=== PATIENT | female | born 1950 | race Caucasian/White ===

== ENCOUNTER 2023-09-02 20:33 | Emergency (ER) | payer MEDICARE, OTHER, SELFPAY ==
[2023-09-02] VITALS (7 sets, daily range): BP systolic 113–136; BP diastolic 65–93; PULSE 75–85; RESP 22; TEMP 36.6; O2SAT 99–100; BMI 29.0
--- NOTE | 2023-09-02 20:40 | ECG_ITS ---
APPROVED REPORT Exam: Resting ECG HR:82 bpm ECG Measurements Heart Rate 82 AXES TX 141 P 49 QRSd 78 QRS 19 QT 365 T 21 QTc 404 Conclusion SINUS RHYTHM LOW QRS VOLTAGE IN PRECORDIAL LEADS [QRS DEFLECTION < 1.0 mV IN CHEST LEADS] BORDERLINE ECG UNCONFIRMED REPORT Electronically signed by : Umer Chiu MD 09/04/2023 14:49:40
--- NOTE | 2023-09-02 21:00 | XR_ITS ---
PROCEDURE INFORMATION: Exam: XR Chest Exam date and time: 09/02/2023 9:14 PM Age: 72 years old Clinical indication: Shortness of breath; Sternal or substernal pain; Additional info: Chest pain TECHNIQUE: Imaging protocol: Radiologic exam of the chest. Views: 1 view. COMPARISON: No relevant prior studies available. FINDINGS: Lungs: Regions of subsegmental atelectasis left lung base. Pleural spaces: Unremarkable. No pleural effusion. No pneumothorax. Heart/Mediastinum: Unremarkable. No cardiomegaly. Bones/joints: Unremarkable. IMPRESSION: 1. Regions of subsegmental atelectasis left lung base. 2. No evidence of acute cardiopulmonary disease.
[2023-09-02 21:12] LABS: Basophils # 0.1 K/mm3 (0-0.2); Basophils % 0.7 % (0.1-2.0); Eosinophils # 0.2 K/mm3 (0.0-0.4); Eosinophils % 2.1 % (0.1-12.0); Hematocrit 39.8 % (37.0-47.0); Hemoglobin 13.4 g/dL (12.2-16.2); Lymphocytes # 3.2 K/mm3 (0.7-4.5); Lymphocytes % 33.3 % (10-50); Mean Corpuscular HGB Conc 33.6 g/dL (31.8-35.4); Mean Corpuscular Hemoglobin 29.3 pg (27.0-31.2); Mean Corpuscular Volume 87.2 fl (81-99); Mean Platelet Volume 8.3 fl (7.4-10.4); Monocytes # 0.5 K/mm3 (0.1-1.0); Monocytes % 4.9 % (1.7-9.3); Neutrophils # 5.7 K/mm3 (1.8-7.8); Platelet Count 266 K/mm3 (142-424); Red Blood Count 4.57 M/mm3 (4.20-5.40); White Blood Count 9.7 K/mm3 (4.8-10.8)
[2023-09-02 21:15] LABS: Alanine Aminotransferase 41 U/L (12-78); Albumin Level 4.4 g/dl (3.5-5.0); Albumin/Globulin Ratio 1.6 (1.1-1.8); Alkaline Phosphatase 52 U/L (38-126); Anion Gap 14.1 mEq/L (5-15); Aspartate Amino Transferase 50 U/L (14-36); Bilirubin,Total 0.6 mg/dl (0.2-1.3); Blood Urea Nitrogen 14 mg/dl (7-17); Calcium 9.1 mg/dl (8.4-10.2); Carbon Dioxide 16 mmol/L (22.0-30.0); Chloride 108 mmol/L (98-107); Creatinine Clearance Estimated 66 mL/min (50-200); Estimated Glomerular Filt Rate 82 ml/min (>60); GFR (African American) 99 ML/MIN (>60); Globulin 2.7 g/dL (1.3-3.2); Glucose 156 mg/dl (74-100); Potassium 4.1 mmoL/L (3.5-5.1); Sodium 134 mmol/L (136-145); Total Protein,Serum 7.1 g/dl (6.3-8.2)
[2023-09-02 21:27] LABS: Troponin I < 0.01 ng/ml (0.00-0.034)
--- NOTE | 2023-09-02 21:37 | ED_ITS ---
Discharge Plan Disposition Chief Complaint: Chest Pain Referrals Follow up/Referrals: Provider,MD Orlin [Primary Care Provider] - See instructions Kristopher Leal MD [Staff Physician] - See instructions Activity Restrictions/Add. Instructions Additional Instructions/Restrictions: At this time it was felt you are safe to be discharged home. If new or worsening symptoms please do not hesitate to return the emergency department. Please call and schedule an appointment with Dr. Leal. Clinical Impressions Clinical Impression: Chest pain Discharge ED Provider: Pedrito Mei General Adult HPI General Chief complaint: Chest Pain Stated complaint: anxiety Time Seen by Provider: 09/02/23 20:42 Mode of Arrival: EMS Source of Information: Patient and EMS Limitations: No Limitations Description of Symptoms (Recalled from ER Triage Doc. by RN): pt reports she was watching TV and started hurting in her chest, felt like her heart was beating fast denies any other symptoms History of Present Illness HPI narrative: Patient is a 72-year-old female past medical history of diabetes, anxiety, depression who presents emergency department for evaluation of chest pain. Patient states that she has had intermittent chest pain throughout the day, substernal. It has been persistent over the last few hours causing her to present here for continued evaluation. Patient does not have any cardiac history per her. Chest pain does not radiate. She lives at [facility]. No other acute complaints at this time. Related Data Allergies Allergy/AdvReac Type Severity Reaction Status Date / Time Penicillins Allergy Mild Verified 09/02/23 20:59 [facility] Disclaimer: The information contained in this section may have been updated after the patient was seen, as this information can be updated by other users. Social History Smoking Status: Never smoker alcohol intake: never current occupational status: other Travel in the last 8 weeks: None ROS Obtained: Yes Systems reviewed as appropriate & no additional complaints except as documented Physical Exam General General appearance: alert and in no apparent distress Head Head exam: atraumatic and normocephalic Eye Eye exam: Present PERRL and EOMI ENT ENT exam: Present mucous membranes moist Neck Neck exam: Present normal inspection Chest Chest inspection: Present normal inspection and symmetric chest wall rise Respiratory Respiratory exam: Present normal lung sounds bilaterally; Absent respiratory distress Cardiovascular Cardiovascular exam: Present regular rate and normal rhythm Abdominal Exam Abdominal exam: Present soft and other (Erythema in the bilateral inguinal inter triginous areas as well as the inframammary areas); Absent tenderness Extremities Exam Extremities exam: Present normal inspection Neurological Exam Neurological exam: Present alert Psychiatric Psychiatric exam: Present normal affect Skin Skin exam: Present warm and dry Medical Decision Making Dax Inquiry Pt receiving controlled substance: No Vital Signs: 09/02/23 20:33 09/02/23 20:56 09/02/23 21:00 Temperature 97.9 F Temperature Source Oral Pulse Rate 85 79 Pulse Rate [Right] 85 Respiratory Rate 22 Blood Pressure 136/93 H Blood Pressure [Right Arm] 122/74 Blood Pressure Mean [Right Arm] 90 Blood Pressure Source [Right Arm] Automatic Cuff Blood Pressure Position [Right Arm] Sitting 02 Sat by Pulse Oximetry 100 100 Oxygen Delivery Method Nasal Cannula Room Air Oxygen Flow Rate (LPM) 3 Lab Data Lab Results 09/02/23 20:45: WBC 9.7, RBC 4.57, Hgb 13.4, Hct 39.8, MCV 87.2, MCH 29.3, MCHC 33.6, RDW 16.0, Plt Count 266, MPV 8.3, Neut % (Auto) 59.0, Lymph % (Auto) 33.3, [place] % (Auto) 4.9, Eos % (Auto) 2.1, Baso % (Auto) 0.7, Neut # (Auto) 5.7, Lymph # (Auto) 3.2, [place] # (Auto) 0.5, Eos # (Auto) 0.2, Baso # (Auto) 0.1, Sodium 134 L, Potassium 4.1, Chloride 108 H, Carbon Dioxide 16 L, Anion Gap 14.1, BUN 14, Creatinine 0.70, Estimated Creat Clear 66, Estimated GFR 82, Est GFR ( Amer) 99, Glucose 156 H, Calcium 9.1, Total Bilirubin 0.6, AST 50 H, ALT 41, Alkaline Phosphatase 52, Troponin I < 0.01, Total Protein 7.1, Albumin 4.4, Globulin 2.7, Albumin/Globulin Ratio 1.6 09/02/23 20:45 09/02/23 20:45 Orders (Tests/Meds): ED MEDICATIONS Discontinued Medications Generic Name Dose Route Start Last Admin Trade Name Freq PRN Reason Stop Dose Admin Aspirin 324 mg 09/02/23 21:41 09/02/23 21:57 Aspirin 81mg Chewable Tablet PO 09/02/23 21:42 324 mg ONCE ONE Administration ORDERS Category Date Time Status Chest XR -- portable [XR chest portable] Stat Exams 09/02/23 21:00 Completed Complete Blood Count Auto Diff Stat Lab 09/02/23 20:45 Completed Comprehensive Metabolic Panel Stat Lab 09/02/23 20:45 Completed Troponin I Q3H Lab 09/03/23 23:00 Ordered Troponin I Q3H Lab 09/04/23 02:00 Ordered Troponin I Stat Lab 09/02/23 20:45 Completed ECG Data Tracing #1: Independently interpreted by me, rate is 82, rhythm is regular, axis is normal, no ST elevation or depression in anatomical contiguous leads, QTc 404. HEART Score History (anamnesis): Moderately suspicious ECG: Normal Age: >65 years Risk factors: No known risk factors Troponin: </= normal limit HEART Score: 3 Medical Decision Narrative: In summary patient is a 72-year-old female past medical history described above who presents emergency department for evaluation of chest pain. Patient is hemodynamically stable nontoxic-appearing upon arrival, afebrile. Differential diagnosis includes ACS, noncardiac chest pain, among others. Patient also has intertrigo in her inframammary and bilateral inguinal areas which will be dried and patient will be discharged with nystatin from that standpoint. Workup from chest pain standpoint will be conducted with chest x-ray, EKG, hematologic labs, serial troponins. Initial inventions include aspirin. Workup reviewed by me, hematologic labs are nonactionable, serial troponin is below detectable limit. Upon repeat evaluation patient continued to be well-appearing. Given this patient is appropriate for discharge at this time we will follow-up with cardiology on outpatient basis. Critical Care Critical Care Time Critical Care Time: No
[2023-09-02] MEDS: ASPIRIN 81MG CHEWABLE TABLET 324 MG PO (21:57)
--- NOTE | 2023-09-02 22:12 | PC.NURSE ---
2nd trop to be collected at [address] Mei
[2023-09-02 23:47] LABS: Troponin I < 0.01 ng/ml (0.00-0.034)
--- NOTE | 2023-09-02 23:55 | PC.NURSE ---
spoke to a male employee at [facility]. he advised nobody there has a vehicle to come get pt
--- NOTE | 2023-09-02 23:56 | PC.NURSE ---
attempted to call [facility]. no answer
--- NOTE | 2023-09-02 23:56 | PC.NURSE ---
attempted to call [employer]. no answer
--- NOTE | 2023-09-02 23:57 | PC.NURSE ---
spoke to Yodit Harden, network architect manager of [employer]. she advised she would have someone come pick pt up
[2023-09-03 00:01] VITALS: BP 117/73; PULSE 76; RESP 20; TEMP 36.6; O2SAT 99
== END 2023-09-03 00:42 | disposition home or self-care (01) ==
PROVIDERS: Emergency Provider Emergency Medicine
DX: R07.9 Chest pain, unspecified (principal); E11.9 Type 2 diabetes mellitus without complications; L30.4 Erythema intertrigo
CPT/HCPCS: 71045; 80053; 84484; 85025; 93005; 99285

== ENCOUNTER 2023-11-02 11:16 | Emergency (ER) | payer MEDICARE, OTHER, SELFPAY ==
[2023-11-02 11:16] VITALS: BP 134/68; PULSE 90; RESP 20; TEMP 37.6; O2SAT 98; BMI 40.2
--- NOTE | 2023-11-02 11:25 | PC.NURSE ---
DR PAYNE AT BEDSIDE
--- NOTE | 2023-11-02 11:32 | HMH.EDGENADL ---
Discharge Plan Disposition Patient Disposition: Home, Self-Care Prescriptions Prescriptions: No Action (DME) blood-glucose meter [Advanced Glucose Meter] Misc See Rx Instructions .Route Qty: 1 0RF Rx Instructions: Test sugar 3 times daily or As directed (DME) Advanced Gluc Meter Test Strip Strip See Rx Instructions .Route Qty: 100 0RF Rx Instructions: Test sugar 3 times daily or As directed (DME) lancets [Advanced Travel Lancets] 28 gauge misc See Rx Instructions .Route Qty: 100 0RF Rx Instructions: Test sugar 3 times daily or As directed nystatin 100,000 unit/gram powder 1 applic topical BID Qty: 60 0RF Activity Restrictions/Add. Instructions Additional Instructions/Restrictions: A silver dressing has been placed Please do not remove this until you are seen by Dr. Jett [facility] plastic surgery on Friday. Please return with any spreading redness pus high fevers or other concerns. Please follow-up with Dr. Jett as instructed. Clinical Impressions Clinical Impression: Full thickness burn of left thigh Instructions Patient Instructions: DI for Laceration Repair Discharge ED Provider: Ryley Jensen General Adult HPI General Chief complaint: Wound/Laceration Stated complaint: LEG INFECTION Time Seen by Provider: 11/02/23 11:20 Mode of Arrival: EMS Source of Information: EMS Limitations: No Limitations Description of Symptoms (Recalled from ER Triage Doc. by RN): pt came in for wound on front aspect of left upper leg/thigh area. pt is a poor historian and unable to give any details or timeline regarding wound. edges are not approximate and it is in various stages of healing, 4-5 inches long approx. pt also has yeast under her breasts History of Present Illness HPI narrative: Patient is a 72-year-old [facility] today with a wound to the left medial aspect of her left thigh. Her mental status which is at his baseline is that she is pleasantly demented and she is unsure as to what happened she does not know if she burned this she does not have know the duration of this. No further history was able to be obtained other than an employee from [employer] stating that she needed to be evaluated. That location is an assisted living facility not a senior living and the staff there are not medically trained. We are attempting to get further information from them at the moment but no further history is able to be obtained or was communicated with us about the nature or the history of this. Related Data Previous Rx's Medication Instructions Recorded nystatin 100,000 unit/gram topical 1 applic topical BID #60 grams 09/02/23 powder blood sugar diagnostic (Advanced #100 ea 09/05/23 Glucose Meter Test Strips) blood-glucose meter (Advanced #1 ea 09/05/23 Glucose Meter) lancets 28 gauge (Advanced Travel #100 ea 09/05/23 Lancets) Allergies Allergy/AdvReac Type Severity Reaction Status Date / Time Penicillins Allergy Mild Verified 09/02/23 20:59 [facility] Disclaimer: The information contained in this section may have been updated after the patient was seen, as this information can be updated by other users. Social History (Updated 09/02/23 @ 23:18 by Pedrito Mei MD) Smoking Status: Never smoker alcohol intake: never current occupational status: other Travel in the last 8 weeks: None ROS Obtained: Yes All systems reviewed & no additional complaints except as documented Physical Exam General General appearance: alert Respiratory Respiratory exam: Present normal lung sounds bilaterally Cardiovascular Cardiovascular exam: Present regular rate Neurological Exam Neurological exam: Present alert and oriented X3 Skin Skin exam: Present other (On the left medial aspect of the thigh there is a 15 x 5 cm area of very well-demarcated erythema with centralized eschar that is insensate no purulence) Medical Decision Making Dax Inquiry Pt receiving controlled substance: No Vital Signs: 11/02/23 11:16 Temperature 99.6 F Temperature Source Oral Pulse Rate [Right Radial] 90 Respiratory Rate 20 Blood Pressure [Right Arm] 134/68 Blood Pressure Mean [Right Arm] 90 02 Sat by Pulse Oximetry 98 Oxygen Delivery Method Room Air Medical Decision Narrative: 72-year-old female presents today with wound of the left medial aspect of her leg. It appears to be a full-thickness burn to me however there is no history of a burn nor infection leading up to today. We are trying to get more history from [facility]ong at the moment. She is insensate in the middle of this and there is certainly an eschar that will need to be debrided. Unfortunately this patient I do not believe will be able to follow-up in an outpatient setting due to her social situation. We are discussing the case with our case management team and I will also discussed the case with [facility] plastic surgery regarding a management plan. This does not appear to be infected. Appears to be a full-thickness burn to be clinically. I discussed the case with Dr. Colunga with [facility] plastic surgery and sent him a picture of the imaging he agrees this looks like a burn. She has no evidence of infection at this point we were able to place a Opticell AG dressing on this and then put Optifoam dressing over top of this. We do not have Mepilex Ag. The patient will follow-up with Dr. Jett with plastic surgery outpatient on Friday. Return precautions emphasized to [facility] and they are aware of this plan. They will be able to get the patient federal transportation for that trip. She was discharged in stable condition. No emergency surgery needed at the moment. Critical Care Critical Care Time Critical Care Time: No
--- NOTE | 2023-11-02 11:39 | PC.NURSE ---
Called [facility] for consult with plastics. Advised they would call back when the provider is available.
--- NOTE | 2023-11-02 11:55 | PC.NURSE ---
Dr. Jensen speaking with [facility] for wound consult with plastics
--- NOTE | 2023-11-02 12:05 | PC.NURSE ---
SPOKE WITH FLAVIO BARTLETT WITH . INFORMATION PROVIDED FOR PT TO RECEIVE APPT FOR LEFT LEG WOUND.
--- NOTE | 2023-11-02 12:27 | PC.NURSE ---
WOUND TO LEFT THIGH COVERED WITH OPTICELL AG SILVER AND OPTIFOAM
[2023-11-02 13:30] VITALS: BP 123/74; PULSE 86; RESP 18; TEMP 36.8; O2SAT 100
== END 2023-11-02 13:30 | disposition home or self-care (01) ==
PROVIDERS: Emergency Provider Student in an Organized Health Care Education/Training Program
DX: T24.312A Burn of third degree of left thigh, initial encounter (principal); F03.90 Unspecified dementia, unspecified severity, without behavioral disturbance, psychotic disturbance, mood disturbance, and anxiety; X58.XXXA Exposure to other specified factors, initial encounter
CPT/HCPCS: 99283

== ENCOUNTER 2023-11-03 23:14 | Emergency (ER) | payer MEDICARE, OTHER, SELFPAY ==
[2023-11-03 23:14] VITALS: BP 136/90; PULSE 92; RESP 20; TEMP 36.9; O2SAT 99; BMI 27.4
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
[2023-11-03 23:30] VITALS: BP 144/84; PULSE 76; RESP 20; O2SAT 100
--- NOTE | 2023-11-03 23:51 | PC.NURSE ---
Call made to [facility] to inform patient is ready for d/c.
[2023-11-04 00:02] VITALS: BP 144/80; PULSE 80; RESP 20; TEMP 37.1; O2SAT 97
--- NOTE | 2023-11-04 00:03 | PC.NURSE ---
report given to staff Aretha from [facility] when she picked patient up from ED.
== END 2023-11-04 00:03 | disposition home or self-care (01) ==
PROVIDERS: Emergency Provider Emergency Medicine; PCP Nurse Practitioner Acute Care
DX: S81.802A Unspecified open wound, left lower leg, initial encounter (principal); X58.XXXA Exposure to other specified factors, initial encounter
CPT/HCPCS: 99283

== ENCOUNTER 2023-11-19 20:46 | Observation (INO) | payer MEDICARE, OTHER, SELFPAY ==
--- NOTE | 2023-11-19 20:48 | CT_ITS ---
PROCEDURE INFORMATION: Exam: CTA Neck With Contrast Exam date and time: 11/19/2023 9:15 PM Age: 73 years old Clinical indication: Stroke-like symptoms; RT upper extremity and RT lower extremity weakness; Additional info: Lkn 4pm, rue/rle flaccid paralysis TECHNIQUE: Imaging protocol: Computed tomographic angiography of the neck with contrast. Exam focused on the cervical segments of the vasculature. 3D rendering (Not supervised by radiologist): MIP and/or 3D reconstructed images were created by the technologist. Radiation optimization: All CT scans at this facility use at least one of these dose optimization techniques: automated exposure control; mA and/or kV adjustment per patient size (includes targeted exams where dose is matched to clinical indication); or iterative reconstruction. Contrast material: ISOVUE; Contrast volume: 100 ml; Contrast route: INTRAVENOUS (IV); COMPARISON: CT ANGIO HEAD 11/19/2023 9:15 PM FINDINGS: Right common carotid artery: No stenosis. No dissection or occlusion. Right internal carotid artery: No stenosis of the extracranial segment. No dissection or occlusion. Right external carotid artery: No occlusion or stenosis of the origin. Left common carotid artery: No stenosis. No dissection or occlusion. Left internal carotid artery: No stenosis of the extracranial segment. No dissection or occlusion. Left external carotid artery: No occlusion or stenosis of the origin. Right vertebral artery: The right vertebral artery is diminutive and noncontributory to the basilar artery. Left vertebral artery: No stenosis. No dissection or occlusion. Soft tissues: Normal. No significant soft tissue swelling. Bones/joints: Moderate loss of intervertebral disc space with degenerative changes at C4 through C6. IMPRESSION: No stenosis or occlusion. REFERENCES: NASCET CRITERIA. The degree of stenosis in the cervical segment of the internal carotid artery is based on NASCET criteria. Normal is no stenosis. Mild is less than 50% stenosis. Moderate is 50-69% stenosis. Severe is 70% to 99% stenosis. Total occlusion is no detectable patent lumen.
--- NOTE | 2023-11-19 20:48 | CT_ITS ---
PROCEDURE INFORMATION: Exam: CTA Head With Contrast, Arteriography Exam date and time: 11/19/2023 9:15 PM Age: 73 years old Clinical indication: Stroke-like symptoms; RT upper extremity and RT lower extremity weakness; Additional info: Lkn 4pm, rue/rle flaccid paralysis TECHNIQUE: Imaging protocol: Computed tomographic angiography of the head with contrast. Exam focused on the arteries. 3D rendering (Not supervised by radiologist): MIP and/or 3D reconstructed images were created by the technologist. Radiation optimization: All CT scans at this facility use at least one of these dose optimization techniques: automated exposure control; mA and/or kV adjustment per patient size (includes targeted exams where dose is matched to clinical indication); or iterative reconstruction. Contrast material: ISOVUE; Contrast volume: 100 ml; Contrast route: INTRAVENOUS (IV); COMPARISON: CT HEAD/BRAIN WO CON 11/19/2023 9:13 PM FINDINGS: ANTERIOR CIRCULATION: Right internal carotid artery: Intracranial segment is patent with no significant stenosis. No aneurysm. Right middle cerebral artery: No occlusion or significant stenosis. No aneurysm. Right anterior cerebral artery: No occlusion or significant stenosis. No aneurysm. Left internal carotid artery: Intracranial segment is patent with no significant stenosis. No aneurysm. Left middle cerebral artery: No occlusion or significant stenosis. No aneurysm. Left anterior cerebral artery: No occlusion or significant stenosis. No aneurysm. POSTERIOR CIRCULATION: Right vertebral artery: No occlusion or significant stenosis. No aneurysm. Left vertebral artery: No occlusion or significant stenosis. No aneurysm. Basilar artery: No occlusion or significant stenosis. No aneurysm. Right posterior cerebral artery: No occlusion or significant stenosis. No aneurysm. Left posterior cerebral artery: No occlusion or significant stenosis. No aneurysm. Transverse sinuses: Nodular filling defects of the transverse sinuses compatible with arachnoid granulations. Brain: See Transverse sinuses finding. Cerebral ventricles: No ventriculomegaly. Bones/joints: Unremarkable. No acute fracture. Soft tissues: Unremarkable. IMPRESSION: No large vessel stenosis or occlusion.
--- NOTE | 2023-11-19 20:48 | CT_ITS ---
PROCEDURE INFORMATION: Exam: CT Head Without Contrast Exam date and time: 11/19/2023 9:13 PM Age: 73 years old Clinical indication: Stroke-like symptoms; Altered mental status/memory loss; Additional info: Lkn 4pm, rue/rle flaccid paralysis TECHNIQUE: Imaging protocol: Computed tomography of the head without contrast. Radiation optimization: All CT scans at this facility use at least one of these dose optimization techniques: automated exposure control; mA and/or kV adjustment per patient size (includes targeted exams where dose is matched to clinical indication); or iterative reconstruction. Other technique: STROKE PROTOCOL was implemented. COMPARISON: No relevant prior studies available. FINDINGS: Brain: There is moderate diffuse cerebral volume loss present. Multiple subcortical and deep hypoattenuating white matter foci are present, likely related to small vessel senescent changes and can also be seen with prior infectious / inflammatory insult, or prior traumatic events. No hyperattenuating foci are identified to suggest acute intracranial hemorrhage. Cerebral ventricles: No ventriculomegaly. Paranasal sinuses: Visualized sinuses are unremarkable. No fluid levels. Mastoid air cells: Visualized mastoid air cells are well aerated. Bones/joints: Unremarkable. No acute fracture. Soft tissues: Unremarkable. Other findings: Motion artifacts slightly limits sensitivity and specificity of the examination. IMPRESSION: 1. Multiple subcortical and deep hypoattenuating white matter foci are present, likely related to small vessel senescent changes and can also be seen with prior infectious / inflammatory insult, or prior traumatic events. 2. No hyperattenuating foci are identified to suggest acute intracranial hemorrhage. 3. Motion artifacts slightly limits sensitivity and specificity of the examination. ASSESSMENT: ASPECTS ([place] Stroke Program Early CT Score) is 10.
[2023-11-19] MEDS: DEXTROSE 50% 50ML SYRINGE (CRASH CART) 50 ML IVP (20:49)
--- NOTE | 2023-11-19 21:01 | PC.NURSE ---
contacted [facility], spoke with chantell. advised doctor doesn't want stroke protocol overhead paged right now, but wants it done likeit is. not waiting on labs. trading assistant agreed and will head this way''
[2023-11-19 21:02] VITALS: BP 153/99; PULSE 78; RESP 16; TEMP 37.1; O2SAT 99; BMI 35.4
[2023-11-19 21:17] LABS: Basophils % 0.1 % (0.1-2.0); Eosinophils # 0.2 K/mm3 (0.0-0.4); Eosinophils % 1.9 % (0.1-12.0); Hematocrit 42.2 % (37.0-47.0); Hemoglobin 13.3 g/dL (12.2-16.2); Lymphocytes % 9.6 % (10-50); Mean Corpuscular HGB Conc 31.5 g/dL (31.8-35.4); Mean Corpuscular Hemoglobin 29.8 pg (27.0-31.2); Mean Corpuscular Volume 94.7 fl (81-99); Monocytes # 0.4 K/mm3 (0.1-1.0); Monocytes % 3.5 % (1.7-9.3); Neutrophils # 8.7 K/mm3 (1.8-7.8); Neutrophils % 84.9 % (37.0-80.0); Platelet Count 271 K/mm3 (142-424); Red Blood Count 4.45 M/mm3 (4.20-5.40); Red Cell Distribution Width 15.6 % (11.5-17.5); White Blood Count 10.3 K/mm3 (4.8-10.8)
--- NOTE | 2023-11-19 21:19 | PC.NURSE ---
PATIENT BACK FROM RADIOLOGY
[2023-11-19] MEDS: IOPAMIDOL-370 (76%);100ML BOTTLE 100 ML IV (21:20)
[2023-11-19] MEDS: SODIUM CHLORIDE 0.9% 10ML SYR (RAD ONLY) 10 ML IV (21:20)
[2023-11-19 21:27] LABS: Alanine Aminotransferase 22 U/L (12-78); Albumin Level 3.9 g/dl (3.5-5.0); Albumin/Globulin Ratio 1.6 (1.1-1.8); Alkaline Phosphatase 62 U/L (38-126); Anion Gap 17.8 mEq/L (5-15); Aspartate Amino Transferase 30 U/L (14-36); Bilirubin,Total 0.4 mg/dl (0.2-1.3); Blood Urea Nitrogen 26 mg/dl (7-17); Calcium 9.2 mg/dl (8.4-10.2); Carbon Dioxide 19 mmol/L (22.0-30.0); Chloride 108 mmol/L (98-107); Creatinine Clearance Estimated 71 mL/min (50-200); Estimated Glomerular Filt Rate 82 ml/min (>60); GFR (African American) 99 ML/MIN (>60); Globulin 2.4 g/dL (1.3-3.2); Glucose 236 mg/dl (74-100); Potassium 3.8 mmoL/L (3.5-5.1); Sodium 141 mmol/L (136-145); Total Protein,Serum 6.3 g/dl (6.3-8.2)
--- NOTE | 2023-11-19 21:28 | ECG_ITS ---
APPROVED REPORT Exam: Resting ECG HR:82 bpm ECG Measurements Heart Rate 82 AXES CA 140 P 59 QRSd 72 QRS 57 QT 377 T 62 QTc 416 Conclusion SINUS RHYTHM NONSPECIFIC ST & T-WAVE ABNORMALITY BORDERLINE ECG UNCONFIRMED REPORT Electronically signed by : Umer Chiu MD 11/20/2023 20:02:06
--- NOTE | 2023-11-19 21:28 | PC.NURSE ---
vrad on phone re: this patient
--- NOTE | 2023-11-19 21:34 | PC.NURSE ---
speaking with stroke navigator at this time from [facility]
[2023-11-19 21:43] LABS: Troponin I < 0.01 ng/ml (0.00-0.034)
--- NOTE | 2023-11-19 21:48 | PC.NURSE ---
spoke with katherine riggs at [facility] and gave update to her re: current status.
[2023-11-19 22:01] VITALS: BP 107/76; PULSE 80; RESP 17; O2SAT 89
[2023-11-19 22:31] VITALS: BP 126/87; PULSE 55; RESP 16; O2SAT 89
--- NOTE | 2023-11-19 22:55 | HMH.EDGENADL ---
Discharge Plan Disposition Patient Disposition: Admitted Prescriptions Prescriptions: No Action (DME) blood-glucose meter [Advanced Glucose Meter] Misc See Rx Instructions .Route Qty: 1 0RF Rx Instructions: Test sugar 3 times daily or As directed (DME) Advanced Gluc Meter Test Strip Strip See Rx Instructions .Route Qty: 100 0RF Rx Instructions: Test sugar 3 times daily or As directed (DME) lancets [Advanced Travel Lancets] 28 gauge misc See Rx Instructions .Route Qty: 100 0RF Rx Instructions: Test sugar 3 times daily or As directed nystatin 100,000 unit/gram powder 1 applic topical BID Qty: 60 0RF Referrals Follow up/Referrals: Honorio Teixeira APRN [Primary Care Provider] - See instructions Clinical Impressions Clinical Impression: Hypoglycemia, Transient neurologic deficit, Generalized weakness, Diarrhea Instructions Patient Instructions: DI for Hyperglycemia -- Adult Discharge ED Provider: Nadeem Castro General Adult HPI <Medina Stubbs DO - Last Filed: 11/19/23 23:29> General Chief complaint: Hyper/Hypoglycemia Stated complaint: AMS Time Seen by Provider: 11/19/23 20:48 Mode of Arrival: EMS Source of Information: Patient Limitations: No Limitations Description of Symptoms (Recalled from ER Triage Doc. by RN): 73 yo female brought in by ems for flaccid response on right side and leaning. according to staff at the [facility] she was normal to the best of her knowledge at 4pm last. initial fsbs in field: 46; fsbs History of Present Illness HPI narrative: This patient is a 73-year-old female with a history of insulin-dependent diabetes presenting to the emergency department with concern for right-sided flaccid paralysis. EMS noted that history is difficult to obtain, as multiple staff members at [facility] told the multiple different things. They note that the earliest last known normal was ever given was 4 PM, the patient was given her medications including insulin. Patient was found just prior to arrival with concern for flaccid paralysis of the right side. EMS noted that fingerstick blood glucose was 46. She was given an amp of D50 with some improvement in her mental status, however her right-sided weakness persisted. Upon arrival, patient is difficult to obtain history from given baseline stutter as well as mild somnolence. Fingerstick blood glucose here is too low to read. Related Data Previous Rx's Medication Instructions Recorded nystatin 100,000 unit/gram topical 1 applic topical BID #60 grams 09/02/23 powder blood sugar diagnostic (Advanced #100 ea 09/05/23 Glucose Meter Test Strips) blood-glucose meter (Advanced #1 ea 09/05/23 Glucose Meter) lancets 28 gauge (Advanced Travel #100 ea 09/05/23 Lancets) Allergies Allergy/AdvReac Type Severity Reaction Status Date / Time Penicillins Allergy Mild Verified 09/02/23 20:59 PFSH <Medina Stubbs DO - Last Filed: 11/19/23 23:29> PFS Disclaimer: The information contained in this section may have been updated after the patient was seen, as this information can be updated by other users. Social History Smoking Status: Unknown if ever smoked alcohol intake: never current occupational status: other Travel in the last 8 weeks: None <Medina Stubbs DO - Last Filed: 11/19/23 23:29> ROS Obtained: Yes All systems reviewed & no additional complaints except as documented Physical Exam <Medina Stubbs DO - Last Filed: 11/19/23 23:29> General General appearance: alert, obtunded and obese Head Head exam: atraumatic and normocephalic Eye Eye exam: Present normal appearance, PERRL and EOMI ENT ENT exam: Present normal exam, normal oropharynx, mucous membranes moist and normal external ear exam Neck Neck exam: Present normal inspection, full ROM and trachea midline; Absent tenderness Chest Chest inspection: Present normal inspection and symmetric chest wall rise; Absent tenderness Respiratory Respiratory exam: Present normal lung sounds bilaterally; Absent respiratory distress, wheezes, stridor or accessory muscle use Cardiovascular Cardiovascular exam: Present regular rate and normal rhythm Abdominal Exam Abdominal exam: Present soft; Absent distention, tenderness or guarding Extremities Exam Extremities exam: Present normal inspection, full ROM and normal capillary refill; Absent tenderness or edema Back Exam Back exam: Present normal inspection and full ROM; Absent tenderness Neurological Exam Neurological exam: Present alert, normal gait and motor sensory deficit; Absent oriented X3 or CN II-XII intact Expanded Neurological Exam Patient oriented to: Present person; Absent place or time Cranial nerves: Normal: EOM function (II, III, IV, ), facial palsy (VII) and tongue deviation (XII) and Abnormal Right: spinal accessory function (XI) Motor strength - LUE: 5/5 Motor strength - RUE: 0/5 Motor strength - LLE: 5/5 Motor strength - RLE: 0/5 Upper motor neuron exam: Normal: maria victoria neglect Coma scale eye opening: Spontaneous Coma scale motor response: Obeys commands Coma scale verbal response: Confused Coma scale total: 14 Psychiatric Psychiatric exam: Present normal affect and normal mood Skin Skin exam: Present warm and dry <Nadeem Castro MD - Last Filed: 11/20/23 00:06> Expanded Neurological Exam Coma scale total: 14 Medical Decision Making <Medina Stubbs DO - Last Filed: 11/19/23 23:29> Medical Records Medical records reviewed: Yes I reviewed the patient's medical records. Dax Inquiry Pt receiving controlled substance: No Vital Signs: 11/19/23 21:02 11/19/23 22:01 11/19/23 22:31 Temperature 98.8 F Temperature Source Oral Pulse Rate 80 55 L Pulse Rate [Right Brachial] 78 Respiratory Rate 16 17 16 Blood Pressure 107/76 L 126/87 Blood Pressure [Right Arm] 153/99 H Blood Pressure Mean 86 92 Blood Pressure Mean [Right Arm] 117 Blood Pressure Source [Right Arm] Automatic Cuff Blood Pressure Position [Right Arm] Sitting 02 Sat by Pulse Oximetry 99 89 L 89 L Oxygen Delivery Method Room Air 11/19/23 23:01 11/19/23 23:49 Temperature Temperature Source Pulse Rate 99 H 90 Pulse Rate [Right Brachial] Respiratory Rate 20 16 Blood Pressure 108/74 L 138/75 Blood Pressure [Right Arm] Blood Pressure Mean 88 Blood Pressure Mean [Right Arm] Blood Pressure Source [Right Arm] Blood Pressure Position [Right Arm] 02 Sat by Pulse Oximetry 92 L 99 Oxygen Delivery Method Lab Data Lab results reviewed: Yes I reviewed the patient's lab results. Lab Results 11/19/23 20:48: VBG pH 7.29 L, VBG pCO2 43.7, VBG pO2 37.0, VBG HCO3 20.5 L, VBG Total CO2 21.9 L, VBG O2 Saturation 67.2, VBG Base Excess -6.0 L 11/19/23 21:10: WBC 10.3, RBC 4.45, Hgb 13.3, Hct 42.2, MCV 94.7, MCH 29.8, MCHC 31.5 L, RDW 15.6, Plt Count 271, MPV 9.0, Neut % (Auto) 84.9 H, Lymph % (Auto) 9.6 L, Millard % (Auto) 3.5, Eos % (Auto) 1.9, Baso % (Auto) 0.1, Neut # (Auto) 8.7 H, Lymph # (Auto) 1.0, Millard # (Auto) 0.4, Eos # (Auto) 0.2, Baso # (Auto) 0.0, Sodium 141, Potassium 3.8, Chloride 108 H, Carbon Dioxide 19 L, Anion Gap 17.8 H, BUN 26 H, Creatinine 0.70, Estimated Creat Clear 71, Estimated GFR 82, Est GFR ( Amer) 99, Glucose 236 H, Calcium 9.2, Total Bilirubin 0.4, AST 30, ALT 22, Alkaline Phosphatase 62, Troponin I < 0.01, Total Protein 6.3, Albumin 3.9, Globulin 2.4, Albumin/Globulin Ratio 1.6 11/19/23 23:41: Urine Color Yellow, Urine Appearance Clear, Urine pH 6.0, Ur Specific [place] >= 1.030, Urine Protein 1+, Urine Glucose (UA) Negative, Urine Ketones 1+, Urine Blood Negative, Urine Nitrate Negative, Urine Bilirubin 2+ A, Urine Urobilinogen 0.2, Ur Leukocyte Esterase Trace 11/19/23 21:10 11/19/23 21:10 Orders (Tests/Meds): ED MEDICATIONS Discontinued Medications Generic Name Dose Route Start Last Admin Trade Name Daljit PRN Reason Stop Dose Admin Dextrose 50 ml 11/19/23 20:49 11/19/23 20:49 Dextrose 50% 50ml Syringe (Crash Cart) IVP 11/19/23 20:50 50 ml ONCE ONE Administration Iopamidol 100 ml 11/19/23 21:20 11/19/23 21:20 Iopamidol-370 (76%);100ml Bottle IV 11/19/23 21:21 100 ml ONCE ONE Administration Sodium Chloride 10 ml 11/19/23 21:20 11/19/23 21:20 Sodium Chloride 0.9% 10ml Syr (Rad Only) IV 11/19/23 21:21 10 ml ONCE ONE Administration ORDERS Category Date Time Status CT angio head Stat Cat Scan 11/19/23 20:[address] angio neck Stat Cat Scan 11/19/23 20:[address] head/brain wo con Stat Cat Scan 11/19/23 20:48 Completed Complete Blood Count Auto Diff Stat Lab 11/19/23 21:10 Completed Comprehensive Metabolic Panel Stat Lab 11/19/23 21:10 Completed Lactic Acid Stat Lab 11/19/23 20:48 Ordered Troponin I Q3H Lab 11/19/23 23:50 Received Troponin I Q3H Lab 11/20/23 02:49 Ordered Troponin I Stat Lab 11/19/23 21:10 Completed Urinalysis and Microscopic Stat Lab 11/19/23 23:41 Results Venous Blood Gas Stat RT 11/19/23 20:48 Completed ECG Data Tracing #1: I reviewed this ECG and interpreted as documented below: Normal sinus rhythm with ventricular rate of [address] changes concerning for STEMI. Some motion artifact noted. Nonspecific ST/T wave changes. ECG initial impression date: 11/19/23 ECG initial impression time: 21:30 Medical Decision Narrative: In summary, this patient is a 73-year-old female presenting to the Emergency Department for evaluation of right-sided weakness in the setting of hyperglycemia. Differential diagnoses considered include but are not limited to CVA, intracranial hemorrhage, intracranial mass, sepsis, hypoglycemia, other stroke mimic. Ruling out the most morbid conditions drove assessment. On initial assessment, patient has NIH stroke scale of 11 for right-sided deficits, dysarthria, and aphasia. She has a fingerstick glucose that is too low to detect. An amp of D50 was given with rapid improvement in her symptoms. She was then able to move normally with NIH stroke scale of 0. Workup included CBC, CMP, troponin, urinalysis, EKG, CT head without contrast, and CT angio of the head and neck. We continued to monitor every 15 minute fingerstick glucoses at this time. On multiple subsequent reassessments, the patient had no recurrence of symptoms. I independently interpreted CT scans prior to the radiologist read and noted no obvious acute area of stroke and no large vessel occlusion. Please see their read for final interpretation. Labs were obtained that demonstrated no acutely concerning abnormalities such as leukocytosis that would suggest sepsis as a cause of hypoglycemia. EMS did note that she did not eat dinner, so I feel she likely has hypoglycemia related to insulin use and not eating. I had an interactive discussion with Brodie, the it coordinator at [facility] [place], who advised that since there is no intervenable lesion and the patient does not have symptoms at this time, no indication for transfer to stroke center. At 2300, patient was placed in ED observation status pending stabilization of her blood glucose to determine whether or not the patient would be appropriate for discharge versus admission. The patient was provided serial reevaluations, neurologic reassessments, serial fingerstick blood glucoses, and cardiac monitoring while awaiting ultimate disposition. Given reassuring workup and exam, it is felt that the patient is appropriate for discharge at this time. Total ED observation time was []. I had a [id number] visit with the patient when providing discharge instructions. The total time involved in discharging this patient was less than 30 minutes. <Nadeem Castro MD - Last Filed: 11/20/23 00:06> Vital Signs: 11/19/23 21:02 11/19/23 22:01 11/19/23 22:31 Temperature 98.8 F Temperature Source Oral Pulse Rate 80 55 L Pulse Rate [Right Brachial] 78 Respiratory Rate 16 17 16 Blood Pressure 107/76 L 126/87 Blood Pressure [Right Arm] 153/99 H Blood Pressure Mean 86 92 Blood Pressure Mean [Right Arm] 117 Blood Pressure Source [Right Arm] Automatic Cuff Blood Pressure Position [Right Arm] Sitting 02 Sat by Pulse Oximetry 99 89 L 89 L Oxygen Delivery Method Room Air 11/19/23 23:01 11/19/23 23:49 Temperature Temperature Source Pulse Rate 99 H 90 Pulse Rate [Right Brachial] Respiratory Rate 20 16 Blood Pressure 108/74 L 138/75 Blood Pressure [Right Arm] Blood Pressure Mean 88 Blood Pressure Mean [Right Arm] Blood Pressure Source [Right Arm] Blood Pressure Position [Right Arm] 02 Sat by Pulse Oximetry 92 L 99 Oxygen Delivery Method Lab Data Lab Results 11/19/23 20:48: VBG pH 7.29 L, VBG pCO2 43.7, VBG pO2 37.0, VBG HCO3 20.5 L, VBG Total CO2 21.9 L, VBG O2 Saturation 67.2, VBG Base Excess -6.0 L 11/19/23 21:10: WBC 10.3, RBC 4.45, Hgb 13.3, Hct 42.2, MCV 94.7, MCH 29.8, MCHC 31.5 L, RDW 15.6, Plt Count 271, MPV 9.0, Neut % (Auto) 84.9 H, Lymph % (Auto) 9.6 L, Millard % (Auto) 3.5, Eos % (Auto) 1.9, Baso % (Auto) 0.1, Neut # (Auto) 8.7 H, Lymph # (Auto) 1.0, Millard # (Auto) 0.4, Eos # (Auto) 0.2, Baso # (Auto) 0.0, Sodium 141, Potassium 3.8, Chloride 108 H, Carbon Dioxide 19 L, Anion Gap 17.8 H, BUN 26 H, Creatinine 0.70, Estimated Creat Clear 71, Estimated GFR 82, Est GFR ( Amer) 99, Glucose 236 H, Calcium 9.2, Total Bilirubin 0.4, AST 30, ALT 22, Alkaline Phosphatase 62, Troponin I < 0.01, Total Protein 6.3, Albumin 3.9, Globulin 2.4, Albumin/Globulin Ratio 1.6 11/19/23 23:41: Urine Color Yellow, Urine Appearance Clear, Urine pH 6.0, Ur Specific [place] >= 1.030, Urine Protein 1+, Urine Glucose (UA) Negative, Urine Ketones 1+, Urine Blood Negative, Urine Nitrate Negative, Urine Bilirubin 2+ A, Urine Urobilinogen 0.2, Ur Leukocyte Esterase Trace Orders (Tests/Meds): ED MEDICATIONS Discontinued Medications Generic Name Dose Route Start Last Admin Trade Name Freq PRN Reason Stop Dose Admin Dextrose 50 ml 11/19/23 20:49 11/19/23 20:49 Dextrose 50% 50ml Syringe (Crash Cart) IVP 11/19/23 20:50 50 ml ONCE ONE Administration Iopamidol 100 ml 11/19/23 21:20 11/19/23 21:20 Iopamidol-370 (76%);100ml Bottle IV 11/19/23 21:21 100 ml ONCE ONE Administration Sodium Chloride 10 ml 11/19/23 21:20 11/19/23 21:20 Sodium Chloride 0.9% 10ml Syr (Rad Only) IV 11/19/23 21:21 10 ml ONCE ONE Administration ORDERS Category Date Time Status CT angio head Stat Cat Scan 11/19/23 20:[address] angio neck Stat Cat Scan 11/19/23 20:[address] head/brain wo con Stat Cat Scan 11/19/23 20:48 Completed Complete Blood Count Auto Diff Stat Lab 11/19/23 21:10 Completed Comprehensive Metabolic Panel Stat Lab 11/19/23 21:10 Completed Lactic Acid Stat Lab 11/19/23 20:48 Ordered Troponin I Q3H Lab 11/19/23 23:50 Received Troponin I Q3H Lab 11/20/23 02:49 Ordered Troponin I Stat Lab 11/19/23 21:10 Completed Urinalysis and Microscopic Stat Lab 11/19/23 23:41 Results Venous Blood Gas Stat RT 11/19/23 20:48 Completed Medical Decision Narrative: In summary, this patient is a 73-year-old female presenting to the Emergency Department for evaluation of right-sided weakness in the setting of hyperglycemia. Differential diagnoses considered include but are not limited to CVA, intracranial hemorrhage, intracranial mass, sepsis, hypoglycemia, other stroke mimic. Ruling out the most morbid conditions drove assessment. On initial assessment, patient has NIH stroke scale of 11 for right-sided deficits, dysarthria, and aphasia. She has a fingerstick glucose that is too low to detect. An amp of D50 was given with rapid improvement in her symptoms. She was then able to move normally with NIH stroke scale of 0. Workup included CBC, CMP, troponin, urinalysis, EKG, CT head without contrast, and CT angio of the head and neck. We continued to monitor every 15 minute fingerstick glucoses at this time. On multiple subsequent reassessments, the patient had no recurrence of symptoms. I independently interpreted CT scans prior to the radiologist read and noted no obvious acute area of stroke and no large vessel occlusion. Please see their read for final interpretation. Labs were obtained that demonstrated no acutely concerning abnormalities such as leukocytosis that would suggest sepsis as a cause of hypoglycemia. EMS did note that she did not eat dinner, so I feel she likely has hypoglycemia related to insulin use and not eating. I had an interactive discussion with Brodie, the it coordinator at [facility] [place], who advised that since there is no intervenable lesion and the patient does not have symptoms at this time, no indication for transfer to stroke center. At 2300, patient was placed in ED observation status pending stabilization of her blood glucose to determine whether or not the patient would be appropriate for discharge versus admission. The patient was provided serial reevaluations, neurologic reassessments, serial fingerstick blood glucoses, and cardiac monitoring while awaiting ultimate disposition. Matthew: I assume primary responsibility for this patient after signout from previous physician. Given reassuring workup and exam, it is felt that the patient was appropriate for discharge. Patient felt comfortable with this, however after ambulatory trial, patient nearly fell multiple times after just a couple of steps. Total ED observation time was 1 hour. Given extreme weakness, patient was helped to the bathroom. She had large-volume diarrhea that was nonbloody none mucousy. I feel after ambulatory trial, generalized weakness, and concern for decreased p.o. intake, increased GI losses, and risk of refractory hypoglycemia is high enough that patient warrants admission at this time. Urinalysis pending at time of admission. Because patient high risk for clinical decompensation, deemed appropriate for inpatient admission. Results were relayed to patient who voiced understanding and patient was agreeable to inpatient admission and management. Patient was admitted to the hospital for further definitive management. Critical Care <Medina Stubbs, DO - Last Filed: 11/19/23 23:29> Critical Care Time Critical Care Time: Yes Attestation: On 11/19/23, the high probability of a clinically significant, sudden or life threatening deterioration of the following system(s) (endocrine, neurologic) required my full and direct attention, intervention and personal management. The time I documented below is in addition to time spent performing reported procedures but includes the following listed in this critical care notation. Total Time Total Critical Care Time: 45
--- NOTE | 2023-11-19 23:00 | PC.NURSE ---
FSBS checks [id number] recheck [phone]
[2023-11-19 23:01] VITALS: BP 108/74; PULSE 99; RESP 20; O2SAT 92
[2023-11-19 23:26] LABS: VBG HCO3 20.5 mmol/L (23-30); VBG Oxygen Saturation 67.2 % (50-70); VBG PCO2 43.7 mmol/L (35-51); VBG PH 7.29 mmol/L (7.31-7.41); VBG Total CO2 21.9 mmol/L (23-27)
[2023-11-19 23:49] VITALS: BP 138/75; PULSE 90; RESP 16; O2SAT 99
[2023-11-19 23:53] LABS: Microscopic, Urine URINE MICROSCOPIC (MICROSCOPIC)
[2023-11-19 23:56] LABS: Appearance,Urine CLEAR (Clear); Blood, Urine Negative (Negative); Color,Urine YELLOW (Yellow); Glucose,Urine (UA) Negative (Negative); Ketones,Urine 1+ (Negative); Leukocyte Esterase,Urine TRACE (Negative); Nitrate,Urine Negative (Negative); Protein,Urine 1+ (Negative); Specific Gravity, Urine >= 1.030 (1.005-1.030); Urobilinogen,Urine 0.2 EU/dl (0.2)
[2023-11-20] VITALS (10 sets, daily range): BP systolic 115–145; BP diastolic 65–99; PULSE 75–106; RESP 16–22; TEMP 36.8–37.5; O2SAT 90–98; BMI 29.4; BMI 29.6
[2023-11-20 00:03] LABS: Bilirubin,Urine 2+ (Negative)
--- NOTE | 2023-11-20 00:05 | PC.NURSE ---
Efrem Ramirez called for update on patient, informed that she is being admitted
[2023-11-20 00:06] LABS: Bacteria,Urine Trace /lpf
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
[2023-11-20 00:29] LABS: Troponin I < 0.01 ng/ml (0.00-0.034)
--- NOTE | 2023-11-20 00:37 | PC.NURSE ---
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
[2023-11-20] MEDS: 0.9 % SODIUM CHLORIDE 1000ML 1,000 ML 100 ML IV (00:53)
--- NOTE | 2023-11-20 00:54 | PC.NURSE ---
rounded on pt at this time. Pt voices no needs.
--- NOTE | 2023-11-20 00:54 | PC.NURSE ---
rounded on patient, given pillow and lights turned out for comfort, call light within reach
--- NOTE | 2023-11-20 02:53 | PC.NURSE ---
rounded on patient, patient sleeping at this time, call light within reach
[2023-11-20 03:20] LABS: Lactic Acid 1.3 mmol/L (0.7-2.1)
[2023-11-20 03:33] LABS: Troponin I 0.01 ng/ml (0.00-0.034)
--- NOTE | 2023-11-20 04:00 | PC.NURSE ---
Report given to FLAVIO Blackwell
--- NOTE | 2023-11-20 05:20 | PC.WOUNDNOTE ---
Left thigh wound
[2023-11-20 07:57] LABS: Basophils % 0.3 % (0.1-2.0); Eosinophils # 0.2 K/mm3 (0.0-0.4); Eosinophils % 1.8 % (0.1-12.0); Hematocrit 39.5 % (37.0-47.0); Hemoglobin 13.2 g/dL (12.2-16.2); Lymphocytes # 2.6 K/mm3 (0.7-4.5); Lymphocytes % 29.7 % (10-50); Mean Corpuscular HGB Conc 33.5 g/dL (31.8-35.4); Mean Corpuscular Volume 92.7 fl (81-99); Mean Platelet Volume 8.5 fl (7.4-10.4); Monocytes # 0.4 K/mm3 (0.1-1.0); Monocytes % 4.4 % (1.7-9.3); Neutrophils # 5.5 K/mm3 (1.8-7.8); Neutrophils % 63.9 % (37.0-80.0); Platelet Count 211 K/mm3 (142-424); Red Blood Count 4.26 M/mm3 (4.20-5.40); Red Cell Distribution Width 15.5 % (11.5-17.5); White Blood Count 8.7 K/mm3 (4.8-10.8)
[2023-11-20 08:07] LABS: Chloride 111 mmol/L (98-107); Sodium 139 mmol/L (136-145)
[2023-11-20 08:08] LABS: Potassium 3.7 mmoL/L (3.5-5.1)
[2023-11-20 08:10] LABS: Alanine Aminotransferase 19 U/L (12-78); Albumin Level 3.6 g/dl (3.5-5.0); Albumin/Globulin Ratio 1.6 (1.1-1.8); Alkaline Phosphatase 46 U/L (38-126); Anion Gap 15.7 mEq/L (5-15); Aspartate Amino Transferase 35 U/L (14-36); Bilirubin,Total 0.8 mg/dl (0.2-1.3); Blood Urea Nitrogen 19 mg/dl (7-17); Calcium 8.9 mg/dl (8.4-10.2); Carbon Dioxide 16 mmol/L (22.0-30.0); Creatinine Clearance Estimated 71 mL/min (50-200); Estimated Glomerular Filt Rate 98 ml/min (>60); GFR (African American) 118 ML/MIN (>60); Globulin 2.3 g/dL (1.3-3.2); Glucose 94 mg/dl (74-100); Total Protein,Serum 5.9 g/dl (6.3-8.2)
[2023-11-20 08:11] LABS: Magnesium 1.6 mg/dl (1.6-2.3)
--- NOTE | 2023-11-20 08:13 | SW/DCPLANNER ---
This patient currently resides at [facility]. PT/OT has been ordered for this patient: once evaluation is completed I will speak w/ Rosario from [facility] regarding safe discharge plans. Discharge date is unknown at this time.
[2023-11-20] MEDS: CLINDAMYCIN 150MG CAPSULE 450 MG PO ×2 (09:02→13:29)
[2023-11-20] MEDS: ENOXAPARIN 40MG/0.4ML SYRINGE 40 MG SQ (09:02)
[2023-11-20] MEDS: LACTOBACILLUS PROBIOTIC COMB CAPSULE 1 CAP PO (09:02)
--- NOTE | 2023-11-20 09:04 | HMH.OTEV ---
OT Inpatient Evaluation Rehab OT IP Evaluation Start: 11/20/23 00:12 Freq: ONCE Status: Active Protocol: Document 11/20/23 09:01 ARNALDO (Rec: 11/20/23 09:04 [email or web address] [id number]) Rehab OT IP Assessment Subjective History This is a 73-year-old female with PMHx of insulin-dependent diabetes, resident from [facility] brought in by EMS to the emergency department with concern for right-sided flaccid paralysis. Patient is poor historian. Data collected form EMS and ER documentation. Per EMS they also noted that multiple staff members reported multiple different things . They note that the earliest last known normal was ever given was 4 PM, the patient was given her medications including insulin. Patient was found just prior to arrival with concern for flaccid paralysis of the right side. EMS noted that fingerstick blood glucose was 46. She was given an amp of D50 with some improvement in her mental status, however her right-sided weakness persisted. Upon arrival, patient is difficult to obtain history from given baseline stutter as well as mild somnolence. Fingerstick blood glucose here is too low to read. Admitted for treatment and management. I can get up. Patient is a resident at [facility]. Subjective Analysis Patient's bed mobility, transfers, LB drsg and fx'l mobility within room. Patient demonstrated good sitting and dynamic standing balance with no AE/devices. Patient appears to be at baseline. Objective Patient Orientation Person,Place,Name,Age Right Upper Extremity Gross ROM WFL Left Upper Extremity Gross ROM WFL Bed Mobility bed mobility - supine/sit Assist Level Independent Transfer Training Sit/Stand/Pivot Transfer Assist Level Independent Chair Transfer Ability Independent Chair Transfer Technique Sit to/from Ambulatory Chair Transfer Assistive Devices None Rehab OT IP prob,goals,plan Problems Date of Evaluation: 11/20/23 Rehab Potential Rehab Potential Innapropriate for Skilled Therapy Discharge Plan OT Discharge Plan Patient appears to be at baseline. Therapy is not indicated at this time. Eval Complexity Eval Charge Codes 64871 - Low Complexity PHYSICIAN CERTIFICATION: I certify the specified therapy services for Amy Montes are required, authorized, and reviewed every 30 days.
[2023-11-20] MEDS: PANTOPRAZOLE 40MG TABLET 40 MG PO (09:06)
--- NOTE | 2023-11-20 09:11 | PC.NURSE ---
pt ambulated with 1 assist to the scale and back to room. pt is in bed with call light within reach.
--- NOTE | 2023-11-20 11:57 | HMH.PTWOUND ---
Rehab Inpt Wound Evaluation Rehab IP Wound Evaluation Start: 11/20/23 04:43 Freq: ONCE Status: Active Protocol: Document 11/20/23 11:53 JAMES (Rec: 11/20/23 11:57 PHORICHMOND [id number]) Rehab PT Wound Assessment Subjective Subjective 73 yowf adm to [facility] with hypoglycemia. She has PMH of DM. She is a resident of a local personal jail and reports she is generally independent with all mobility and ADLs without an AD. She presents with L medial thigh wound of unknown cause on adm. Wound Left Medial Thigh Wound Type unknown cause Is This a Chronic Wound Yes Wound Length (cm) 3.0 Wound Width (cm) 7.0 Wound Depth (cm) 0.1 Wound Bed Appearance [place],Yellow Percentage Granulated (%) 50 Percentage of Slough (%) 50 Wound Margins Description Well Defined Surrounding Tissue Appearance Bright Red Wound Drainage Description Serous Drainage Amount Scant Wound Topical Solution/Irrigant Saline Irrigant Primary Dressing Composite Comment polymem silver Wound Secondary Dressing Type Film Dressing Comment tegaderm Wound Debridement Method Gauze,Mechanical Wound Debridement Amount of Tissue None Removed Dressing Change Patient Tolerance Tolerated Well Plan/Recommendation Comment Pt currently has no need for sharp selective debridment. Nsg to continue daily dressing changes as above. Eval Complexity Eval Charge Codes 94198 - High Complexity PHYSICIAN CERTIFICATION: I certify the specified therapy services for Amy Montes are required, authorized, and reviewed every 30 days.
--- NOTE | 2023-11-20 11:59 | HMH.PTEV ---
Physical Therapy Evaluation Rehab PT IP Evaluation Start: 11/20/23 00:12 Freq: ONCE Status: Active Protocol: Document 11/20/23 11:57 JAMES (Rec: 11/20/23 11:59 JAMES [id number]) Subjective/History History History 73 yowf adm to [facility] with hypoglycemia. She has PMH of DM. She is a resident of a local personal halfway and reports she is generally independent with all mobility and ADLs without an AD. She presents with L medial thigh wound of unknown cause on adm. Subjective Subjective Pt reports tenderness to palpation of her L medial thigh wound, but otherwise she has no c/o this am. New diagnosis of cancer in past 12 No months? Rehab PT IP Eval Objective Appearance Patient Behavior Appropriate Patient Orientation Person Difficulty following instructions none Speech Pattern Clear Ambulation Patient Able to Ambulate Yes Ambulation Observation IP General Gait Pattern Observation No Deviations/Normal Ambulation Distance (feet) 50 Ambulation Assistive Device None Ambulation Ability Supervision/Stand by Balance Ability to Arise Able, w/o using arms Sitting Balance Steady, safe Standing Balance Steady, wide stance Dynamic Sitting Balance Ability Good Dynamic Standing Balance Ability Good Transfers Bed Transfer Ability Supervision/Stand by Chair Transfer Ability Supervision/Stand by Sit to Stand Bed Transfer Ability Supervision/Stand by Sit to Stand Chair Transfer Ability Supervision/Stand by Rehab PT IP prob,goals,plan Problems Date of Evaluation: 11/20/23 Discharge Plan PT Discharge Plan Pt is currently at baseline for all mobility and is appropriate to return to personal halfway once medically stable for d/c. Eval Complexity Eval Charge Codes 67672 - High Complexity PHYSICIAN CERTIFICATION: I certify the specified therapy services for Amy Montes are required, authorized, and reviewed every 30 days.
[2023-11-20 14:04] LABS: POC Glucose,Bedside 77 (70-110)
[2023-11-20 14:04] LABS: POC Glucose,Bedside 85 (70-110)
[2023-11-20 14:04] LABS: POC Glucose,Bedside 150 (70-110)
--- NOTE | 2023-11-20 15:54 | EXP.DC.SUM ---
General Admission date:: 11/20/23 Discharge date: 11/20/23 HPI HPI HPI: This is a 73-year-old female with PMHx of insulin-dependent diabetes, resident from [facility] brought in by EMS to the emergency department with concern for right-sided flaccid paralysis. Patient is poor historian. Data collected form EMS and ER documentation. Per EMS they also noted that multiple staff members reported multiple different things . They note that the earliest last known normal was ever given was 4 PM, the patient was given her medications including insulin. Patient was found just prior to arrival with concern for flaccid paralysis of the right side. EMS noted that fingerstick blood glucose was 46. She was given an amp of D50 with some improvement in her mental status, however her right-sided weakness persisted. Upon arrival, patient is difficult to obtain history from given baseline stutter as well as mild somnolence. Fingerstick blood glucose here is too low to read. Admitted for treatment and management. Hospital Course Hospital Course Hospital Course: patient is alert awake and back to the baseline, patient is stable for discharge Hypoglycemia resolved, stop insulin at DC until seen by PCP, patient is eating well now. Patient is maintaing her blood sugars and is stable for discharge see same date H&P for further details Patient was seen and evaluated at the bedside on the day of discharge. Patient wishes to be discharged. All patient questions were answered and patient was given time to ask questions. Patient was discharged in stable condition. Patient understands that she can return to ER in case of any sudden changes in health. Total time spent on DC - 38 mins Exam Data for Last 24 hours Vital signs and Labs for Last 24 Hours: Temp Pulse Resp BP Pulse Ox O2 Del Method 98.9 F 91 H 16 118/68 98 Room Air 11/20/23 15:12 11/20/23 15:12 11/20/23 15:12 11/20/23 15:12 11/20/23 15:12 11/20/23 15:12 Laboratory Results - last 24 hr 11/19/23 20:48: VBG pH 7.29 L, VBG pCO2 43.7, VBG pO2 37.0, VBG HCO3 20.5 L, VBG Total CO2 21.9 L, VBG O2 Saturation 67.2, VBG Base Excess -6.0 L 11/19/23 21:10: WBC 10.3, RBC 4.45, Hgb 13.3, Hct 42.2, MCV 94.7, MCH 29.8, MCHC 31.5 L, RDW 15.6, Plt Count 271, MPV 9.0, Neut % (Auto) 84.9 H, Lymph % (Auto) 9.6 L, [place] % (Auto) 3.5, Eos % (Auto) 1.9, Baso % (Auto) 0.1, Neut # (Auto) 8.7 H, Lymph # (Auto) 1.0, [place] # (Auto) 0.4, Eos # (Auto) 0.2, Baso # (Auto) 0.0, Sodium 141, Potassium 3.8, Chloride 108 H, Carbon Dioxide 19 L, Anion Gap 17.8 H, BUN 26 H, Creatinine 0.70, Estimated Creat Clear 71, Estimated GFR 82, Est GFR ( Amer) 99, Glucose 236 H, Calcium 9.2, Total Bilirubin 0.4, AST 30, ALT 22, Alkaline Phosphatase 62, Troponin I < 0.01, Total Protein 6.3, Albumin 3.9, Globulin 2.4, Albumin/Globulin Ratio 1.6 11/19/23 23:41: Urine Color Yellow, Urine Appearance Clear, Urine pH 6.0, Ur Specific [place] >= 1.030, Urine Protein 1+, Urine Glucose (UA) Negative, Urine Ketones 1+, Urine Blood Negative, Urine Nitrate Negative, Urine Bilirubin 2+ A, Urine Urobilinogen 0.2, Ur Leukocyte Esterase Trace, Urine RBC 3-5, Urine WBC 3-5, Ur Squamous Epith Cells None, Urine Bacteria Trace 11/19/23 23:50: Troponin I < 0.01 11/20/23 03:00: Lactate 1.3, Troponin I 0.01 11/20/23 04:28: POC Glucose 85 11/20/23 06:11: POC Glucose 77 11/20/23 07:45: WBC 8.7, RBC 4.26, Hgb 13.2, Hct 39.5, MCV 92.7, MCH 31.0, MCHC 33.5, RDW 15.5, Plt Count 211, MPV 8.5, Neut % (Auto) 63.9, Lymph % (Auto) 29.7, [place] % (Auto) 4.4, Eos % (Auto) 1.8, Baso % (Auto) 0.3, Neut # (Auto) 5.5, Lymph # (Auto) 2.6, [place] # (Auto) 0.4, Eos # (Auto) 0.2, Baso # (Auto) 0.0, Sodium 139, Potassium 3.7, Chloride 111 H, Carbon Dioxide 16 L, Anion Gap 15.7 H, BUN 19 H D, Creatinine 0.60, Estimated Creat Clear 71, Estimated GFR 98, Est GFR ( Amer) 118, Glucose 94 D, Calcium 8.9, Magnesium 1.6, Total Bilirubin 0.8, AST 35, ALT 19, Alkaline Phosphatase 46, Total Protein 5.9 L, Albumin 3.6, Globulin 2.3, Albumin/Globulin Ratio 1.6 11/20/23 10:55: POC Glucose 150 H I & O for Last 24 hours: Intake & Output 11/17/23 11/18/23 11/19/23 11/20/23 23:59 23:59 23:59 23:59 Intake Total 630 / 630 Output Total 0 / 0 Balance 630 / 630 Weight 90.718 kg 73.028 kg Results Data Completed and Pending Labs on day of discharge: Labs from last 24 hours 11/20/23 11/20/23 11/20/23 10:55 07:45 06:11 WBC 8.7 RBC 4.26 Hgb 13.2 Hct 39.5 MCV 92.7 MCH 31.0 MCHC 33.5 RDW 15.5 Plt Count 211 MPV 8.5 Neut % (Auto) 63.9 Lymph % (Auto) 29.7 [place] % (Auto) 4.4 Eos % (Auto) 1.8 Baso % (Auto) 0.3 Neut # (Auto) 5.5 Lymph # (Auto) 2.6 [place] # (Auto) 0.4 Eos # (Auto) 0.2 Baso # (Auto) 0.0 VBG pH VBG pCO2 VBG pO2 VBG HCO3 VBG Total CO2 VBG O2 Saturation VBG Base Excess Sodium 139 Potassium 3.7 Chloride 111 H Carbon Dioxide 16 L Anion Gap 15.7 H BUN 19 H D Creatinine 0.60 Estimated Creat Clear 71 Estimated GFR 98 Est GFR ( Amer) 118 Glucose 94 D POC Glucose 150 H 77 Lactate Calcium 8.9 Magnesium 1.6 Total Bilirubin 0.8 AST 35 ALT 19 Alkaline Phosphatase 46 Troponin I Total Protein 5.9 L Albumin 3.6 Globulin 2.3 Albumin/Globulin Ratio 1.6 Urine Color Urine Appearance Urine pH Ur Specific [place] Urine Protein Urine Glucose (UA) Urine Ketones Urine Blood Urine Nitrate Urine Bilirubin Urine Urobilinogen Ur Leukocyte Esterase Urine RBC Urine WBC Ur Squamous Epith Cells Urine Bacteria 11/20/23 11/20/23 11/19/23 04:28 03:00 23:50 WBC RBC Hgb Hct MCV MCH MCHC RDW Plt Count MPV Neut % (Auto) Lymph % (Auto) [place] % (Auto) Eos % (Auto) Baso % (Auto) Neut # (Auto) Lymph # (Auto) [place] # (Auto) Eos # (Auto) Baso # (Auto) VBG pH VBG pCO2 VBG pO2 VBG HCO3 VBG Total CO2 VBG O2 Saturation VBG Base Excess Sodium Potassium Chloride Carbon Dioxide Anion Gap BUN Creatinine Estimated Creat Clear Estimated GFR Est GFR ( Amer) Glucose POC Glucose 85 Lactate 1.3 Calcium Magnesium Total Bilirubin AST ALT Alkaline Phosphatase Troponin I 0.01 < 0.01 Total Protein Albumin Globulin Albumin/Globulin Ratio Urine Color Urine Appearance Urine pH Ur Specific [place] Urine Protein Urine Glucose (UA) Urine Ketones Urine Blood Urine Nitrate Urine Bilirubin Urine Urobilinogen Ur Leukocyte Esterase Urine RBC Urine WBC Ur Squamous Epith Cells Urine Bacteria 11/19/23 11/19/23 11/19/23 23:41 21:10 20:48 WBC 10.3 RBC 4.45 Hgb 13.3 Hct 42.2 MCV 94.7 MCH 29.8 MCHC 31.5 L RDW 15.6 Plt Count 271 MPV 9.0 Neut % (Auto) 84.9 H Lymph % (Auto) 9.6 L [place] % (Auto) 3.5 Eos % (Auto) 1.9 Baso % (Auto) 0.1 Neut # (Auto) 8.7 H Lymph # (Auto) 1.0 [place] # (Auto) 0.4 Eos # (Auto) 0.2 Baso # (Auto) 0.0 VBG pH 7.29 L VBG pCO2 43.7 VBG pO2 37.0 VBG HCO3 20.5 L VBG Total CO2 21.9 L VBG O2 Saturation 67.2 VBG Base Excess -6.0 L Sodium 141 Potassium 3.8 Chloride 108 H Carbon Dioxide 19 L Anion Gap 17.8 H BUN 26 H Creatinine 0.70 Estimated Creat Clear 71 Estimated GFR 82 Est GFR ( Amer) 99 Glucose 236 H POC Glucose Lactate Calcium 9.2 Magnesium Total Bilirubin 0.4 AST 30 ALT 22 Alkaline Phosphatase 62 Troponin I < 0.01 Total Protein 6.3 Albumin 3.9 Globulin 2.4 Albumin/Globulin Ratio 1.6 Urine Color Yellow Urine Appearance Clear Urine pH 6.0 Ur Specific [place] >= 1.030 Urine Protein 1+ Urine Glucose (UA) Negative Urine Ketones 1+ Urine Blood Negative Urine Nitrate Negative Urine Bilirubin 2+ A Urine Urobilinogen 0.2 Ur Leukocyte Esterase Trace Urine RBC 3-5 Urine WBC 3-5 Ur Squamous Epith Cells None Urine Bacteria Trace DS: Diagnosis Discharge Diagnosis (1) Hypoglycemia: Status: Acute Code(s): E16.2 - Hypoglycemia, unspecified (2) Generalized weakness: Status: Acute Code(s): R53.1 - Weakness (3) Transient neurologic deficit: Status: Acute Code(s): R29.818 - Other symptoms and signs involving the nervous system (4) Diarrhea: Status: Acute Code(s): R19.7 - Diarrhea, unspecified Qualifiers: Diarrhea type: unspecified type Qualified Code(s): R19.7 - Diarrhea, unspecified (5) Leg wound, left: Status: Acute Code(s): S81.802A - Unspecified open wound, left lower leg, initial encounter Qualifiers: Encounter type: subsequent encounter Qualified Code(s): S81.802D - Unspecified open wound, left lower leg, subsequent encounter Meds Home Medications and Allergies Home Medications Medication Instructions Recorded Confirmed Type buspirone 10 mg tablet 10 mg PO BID 11/20/23 11/20/23 History clindamycin HCl 150 mg capsule 450 mg PO TID 5 days #45 caps 11/20/23 Rx famotidine 20 mg tablet 20 mg PO BID 11/20/23 11/20/23 History metformin 500 mg tablet 500 mg PO BID 11/20/23 11/20/23 History sertraline 100 mg tablet 100 mg PO DAILY 11/20/23 11/20/23 History New Prescriptions to Start Prescriptions: clindamycin HCl Keith Garner Allergies Allergy/AdvReac Type Severity Reaction Status Date / Time Penicillins Allergy Mild Verified 09/02/23 20:59 Discharge Plan Disposition Patient Disposition: Home, Self-Care Follow up Plan Follow up with: Honorio Teixeira APRN [Primary Care Provider] - See instructions Prescriptions/Medication Reconciliation: New clindamycin HCl 150 mg Capsule 450 mg PO TID 5 Days Qty: 45 0RF Continued metformin 500 mg tablet 500 mg PO BID sertraline 100 mg tablet 100 mg PO DAILY famotidine 20 mg tablet 20 mg PO BID buspirone 10 mg tablet 10 mg PO BID Discontinued insulin glargine [Basaglar KwikPen U-100 Insulin] 100 unit/mL (3 mL) insulin pen 0 unit SQ DIRECTED Problem Reconciliation Problems Reviewed?: Yes Patient Discharge Instructions ACTIVITY: Ambulate as tolerated DIET: diabetic diet Patient Instructions: DI for Hyperglycemia -- Adult Providers Primary Care Provider: Honorio Teixeira Admit Provider: Keith Garner Attending Provider: Keith Garner
[2023-11-20 16:02] LABS: POC Glucose,Bedside 127 (70-110)
== END 2023-11-20 17:30 | disposition home or self-care (01) ==
LOC: ER 11-20 00:06 → 2ND 11-20 00:20 → ICU 11-20 04:26
PROVIDERS: Emergency Medicine; Nurse Practitioner Family; Admitting Provider Internal Medicine; Emergency Provider Emergency Medicine; PCP Nurse Practitioner Acute Care; Visit Provider Internal Medicine
DX: E16.2 Hypoglycemia, unspecified (principal); R53.1 Weakness; R29.818 Other symptoms and signs involving the nervous system; R19.7 Diarrhea, unspecified; S81.802D Unspecified open wound, left lower leg, subsequent encounter; S81.802A Unspecified open wound, left lower leg, initial encounter
CPT/HCPCS: 70450; 70496; 70498; 80053; 81001; 82803; 82962; 83605; 83735; 84484; 85025; 93005; 97163; 97165; 99291; G0378; Q9967

== ENCOUNTER 2023-12-21 16:00 | Emergency (ER) | payer MEDICARE, OTHER, SELFPAY ==
[2023-12-21 16:01] VITALS: BP 113/80; PULSE 97; RESP 15; TEMP 36.8; O2SAT 98
[2023-12-21 16:05] VITALS: BP 113/80; PULSE 101; O2SAT 100
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
--- NOTE | 2023-12-21 16:21 | XR_ITS ---
PROCEDURE INFORMATION: Exam: XR Left Hip Exam date and time: 12/21/2023 5:06 PM Age: 73 years old Clinical indication: Injury or trauma; Fall; Blunt trauma (contusions or hematomas); Left; Pelvic region TECHNIQUE: Imaging protocol: Radiologic exam of the left hip. Views: 2 or 3 views hip with pelvis when performed. COMPARISON: CR XR FEMUR LT 2V 12/21/2023 5:06 PM FINDINGS: Bones/joints: No acute fracture or malalignment. Soft tissues: Unremarkable. IMPRESSION: No acute osseous findings.
--- NOTE | 2023-12-21 16:21 | XR_ITS ---
PROCEDURE INFORMATION: Exam: XR Left Femur Exam date and time: 12/21/2023 5:06 PM Age: 73 years old Clinical indication: Injury or trauma; Fall; Blunt trauma; Thigh or upper leg; Left TECHNIQUE: Imaging protocol: Radiologic exam of the left femur. Views: 2 views. COMPARISON: CR XR HIP LT 2-3V W/PELVIS 12/21/2023 5:06 PM FINDINGS: Bones/joints: No acute fracture or malalignment. Old healed proximal fibular fracture. Partially visualized intact intramedullary herminio and screw fixation hardware within the tibia. Soft tissues: Unremarkable. IMPRESSION: No acute osseous findings.
--- NOTE | 2023-12-21 16:23 | CT_ITS ---
PROCEDURE INFORMATION: Exam: CT Head Without Contrast Exam date and time: 12/21/2023 5:07 PM Age: 73 years old Clinical indication: Injury or trauma; Fall; Blunt trauma (contusions or hematomas) TECHNIQUE: Imaging protocol: Computed tomography of the head without contrast. Radiation optimization: All CT scans at this facility use at least one of these dose optimization techniques: automated exposure control; mA and/or kV adjustment per patient size (includes targeted exams where dose is matched to clinical indication); or iterative reconstruction. COMPARISON: CT ANGIO HEAD 11/19/2023 9:15 PM FINDINGS: Limitations: Motion artifact. Brain: No acute intracranial hemorrhage, midline shift or mass effect. Diffuse brain parenchymal volume loss. Mild hypodensities within the cerebral white matter most consistent with chronic small-vessel ischemic changes. Cerebral ventricles: Ex vacuo dilatation of the ventricles. Paranasal sinuses: Opacified left maxillary sinus. Mastoid air cells: Visualized mastoid air cells are well aerated. Bones/joints: Unremarkable. No acute fracture. Soft tissues: Unremarkable. IMPRESSION: No acute intracranial findings.
--- NOTE | 2023-12-21 16:24 | HMH.EDGENADL ---
Discharge Plan Disposition Patient Disposition: Home, Self-Care Chief Complaint: PAIN Prescriptions Prescriptions: No Action metformin 500 mg tablet 500 mg PO BID sertraline 100 mg tablet 100 mg PO DAILY famotidine 20 mg tablet 20 mg PO BID buspirone 10 mg tablet 10 mg PO BID clindamycin HCl 150 mg Capsule 450 mg PO TID 5 Days Qty: 45 0RF Referrals Follow up/Referrals: Honorio Teixeira APRN [Primary Care Provider] - See instructions Activity Restrictions/Add. Instructions Additional Instructions/Restrictions: At this time it was felt you are safe to be discharged home. If new or worsening symptoms please do not hesitate to return the emergency department. If symptoms persist please follow-up with your family doctor as you are able. Clinical Impressions Clinical Impression: Fall, Acute shoulder pain, Hip pain Discharge ED Provider: Pedrito Mei General Adult HPI General Chief complaint: PAIN Stated complaint: fall Time Seen by Provider: 12/21/23 16:15 Mode of Arrival: EMS Source of Information: Patient, EMS and Medical Record Limitations: No Limitations Description of Symptoms (Recalled from ER Triage Doc. by RN): c/o right shoulder and right arm pain after tripping and falling on the ground/floor. Denies hitting her head or other injuries at this time History of Present Illness HPI narrative: Patient is a 73-year-old female not on anticoagulation presents emergency department for evaluation of traumatic injury sustained in a fall. Patient was walking when she fell onto her left side. She is complaining of left shoulder pain, left hip pain and presents here for continued evaluation. Denies neck pain or head pain. No other acute complaints at this time. Related Data Home Medications Medication Instructions Recorded Confirmed buspirone 10 mg tablet 10 mg PO BID 11/20/23 11/20/23 famotidine 20 mg tablet 20 mg PO BID 11/20/23 11/20/23 metformin 500 mg tablet 500 mg PO BID 11/20/23 11/20/23 sertraline 100 mg tablet 100 mg PO DAILY 11/20/23 11/20/23 Previous Rx's Medication Instructions Recorded clindamycin HCl 150 mg capsule 450 mg (3 x 150 mg) PO TID 5 days 11/20/23 #45 caps Allergies Allergy/AdvReac Type Severity Reaction Status Date / Time Penicillins Allergy Mild Verified 09/02/23 20:59 [facility] Disclaimer: The information contained in this section may have been updated after the patient was seen, as this information can be updated by other users. Medical History (Updated 12/21/23 @ 18:26 by Pedrito Mei MD) Diabetes mellitus, type 2 Social History Smoking Status: Never smoker alcohol intake: never current occupational status: other Travel in the last 8 weeks: None ROS Obtained: Yes Systems reviewed as appropriate & no additional complaints except as documented Physical Exam General General appearance: alert and in no apparent distress Head Head exam: atraumatic and normocephalic Eye Eye exam: Present PERRL and EOMI ENT ENT exam: Present mucous membranes moist Neck Neck exam: Present normal inspection Chest Chest inspection: Present normal inspection and symmetric chest wall rise Respiratory Respiratory exam: Present normal lung sounds bilaterally; Absent respiratory distress Cardiovascular Cardiovascular exam: Present regular rate and normal rhythm Abdominal Exam Abdominal exam: Present soft; Absent tenderness Extremities Exam Extremities exam: Present normal inspection and other (Tenderness of the left shoulder and left hip, extensor mechanism left lower extremity intact. Active range of motion preserved to the left shoulder.) Neurological Exam Neurological exam: Present alert; Absent oriented X3 (Oriented to place and person) or motor sensory deficit Psychiatric Psychiatric exam: Present normal affect Skin Skin exam: Present warm and dry Medical Decision Making Dax Inquiry Pt receiving controlled substance: No Vital Signs: 12/21/23 16:01 12/21/23 16:05 12/21/23 17:00 Temperature 98.2 F Temperature Source Oral Pulse Rate 101 H 100 H Pulse Rate [Left Radial] 97 H Respiratory Rate 15 20 Blood Pressure 113/80 110/70 Blood Pressure [Right Arm] 113/80 Blood Pressure Mean 86 Blood Pressure Mean [Right Arm] 91 Blood Pressure Source [Right Arm] Automatic Cuff Blood Pressure Position [Right Arm] Sitting 02 Sat by Pulse Oximetry 98 100 100 Oxygen Delivery Method Room Air Room Air 12/21/23 17:42 Temperature Temperature Source Pulse Rate 82 Pulse Rate [Left Radial] Respiratory Rate Blood Pressure 132/84 Blood Pressure [Right Arm] Blood Pressure Mean Blood Pressure Mean [Right Arm] Blood Pressure Source [Right Arm] Blood Pressure Position [Right Arm] 02 Sat by Pulse Oximetry 93 L Oxygen Delivery Method Room Air Orders (Tests/Meds): ED MEDICATIONS Discontinued Medications Generic Name Dose Route Start Last Admin Trade Name Freq PRN Reason Stop Dose Admin Acetaminophen 1,000 mg 12/21/23 16:21 12/21/23 16:32 Acetaminophen 500mg Tab PO 12/21/23 16:22 1,000 mg ONCE ONE Administration Ibuprofen 600 mg 12/21/23 16:21 12/21/23 16:32 Ibuprofen 600 Mg Tablet PO 12/21/23 16:22 Not Given ONCE ONE ORDERS Category Date Time Status CT head/brain wo con Stat Cat Scan 12/21/23 16:23 Completed Femur XR left 2 views [XR femur LT 2V] Stat Exams 12/21/23 16:21 Completed Shoulder XR left minimum 2 views [XR shoulder LT min 2V Exams 12/21/23 16:21 Completed ] Stat XR hip LT 2-3V w/pelvis Stat Exams 12/21/23 16:21 Completed Medical Decision Narrative: In summary patient is 73-year-old female with past medical history described above who presents emergency department for evaluation of traumatic injury sustained in a mechanical fall. Patient is hemodynamically stable nontoxic-appearing upon arrival. Trauma survey will be conducted with noncontrasted CT scan of the head, plain film left shoulder and left hip. Initial inventions include Tylenol. Trauma survey reviewed by me and negative for acute traumatic pathology. Upon repeat evaluation patient was well-appearing at bedside, ambulatory. Given this patient is appropriate for discharge at this time. Critical Care Critical Care Time Critical Care Time: No
[2023-12-21] MEDS: ACETAMINOPHEN 500MG TAB 1000 MG PO (16:32)
[2023-12-21 17:00] VITALS: BP 110/70; PULSE 100; RESP 20; O2SAT 100
[2023-12-21 17:42] VITALS: BP 132/84; PULSE 82; O2SAT 93
[2023-12-21 18:01] VITALS: BP 156/86; PULSE 97; RESP 20; O2SAT 94
--- NOTE | 2023-12-21 18:43 | PC.NURSE ---
[facility], no answer
--- NOTE | 2023-12-21 18:45 | PC.NURSE ---
called ayesha Ybarra she is going to get someone to come get her.
[2023-12-21 19:00] VITALS: BP 156/86; PULSE 97; RESP 16; TEMP 36.7
== END 2023-12-21 19:01 | disposition home or self-care (01) ==
PROVIDERS: Emergency Provider Emergency Medicine; PCP Nurse Practitioner Acute Care
DX: M25.552 Pain in left hip (principal); M25.512 Pain in left shoulder; E11.9 Type 2 diabetes mellitus without complications; Z79.84 Long term (current) use of oral hypoglycemic drugs; W18.30XA Fall on same level, unspecified, initial encounter
CPT/HCPCS: 70450; 73030; 73502; 73552; 99284

== ENCOUNTER 2024-01-09 13:45 | Inpatient (IN) | payer MEDICARE, OTHER, SELFPAY ==
[2024-01-09] VITALS (13 sets, daily range): BP systolic 109–151; BP diastolic 54–104; PULSE 65–122; RESP 20; TEMP 36.5–37.3; O2SAT 83–100; BMI 24.1; BMI 24.8
--- NOTE | 2024-01-09 13:48 | CT_ITS ---
PROCEDURE INFORMATION: Exam: CTA Chest With Contrast Exam date and time: 01/09/2024 4:28 PM Age: 73 years old Clinical indication: Shortness of breath; Additional info: ALICIA argueta jonah garret TECHNIQUE: Imaging protocol: Computed tomographic angiography of the chest with contrast. Exam focused on the arteries. 3D rendering (Not supervised by radiologist): MIP and/or 3D reconstructed images were created by the technologist. Radiation optimization: All CT scans at this facility use at least one of these dose optimization techniques: automated exposure control; mA and/or kV adjustment per patient size (includes targeted exams where dose is matched to clinical indication); or iterative reconstruction. Contrast material: ISOVUE; Contrast volume: 70 ml; Contrast route: INTRAVENOUS (IV); COMPARISON: CR XR CHEST PORTABLE 01/09/2024 2:27 PM FINDINGS: Pulmonary arteries: There is suboptimal opacification of pulmonary arteries due to contrast bolus timing. Aorta: Regions of atherosclerotic vascular calcification involving the aortic arch. Lungs: Bilateral ground-glass regions of opacification. Findings nonspecific however most likely reflect interstitial lung disease. An acute inflammatory process could not be entirely excluded. Pleural spaces: Unremarkable. No pneumothorax. No pleural effusion. Heart: Unremarkable. No cardiomegaly. No pericardial effusion. Coronary arteries: No evidence of coronary artery calcification Lymph nodes: Unremarkable. No enlarged lymph nodes. Bones/joints: Unremarkable. No acute fracture. Soft tissues: Unremarkable. Other findings: Image degradation secondary to motion artifact. IMPRESSION: 1. No large or central pulmonary embolus. Evaluation of the peripheral pulmonary arteries is limited. 2. Bilateral ground-glass regions of opacification. Findings nonspecific however most likely reflect interstitial lung disease. An acute inflammatory process could not be entirely excluded.
--- NOTE | 2024-01-09 13:48 | CT_ITS ---
PROCEDURE INFORMATION: Exam: CT Head Without Contrast Exam date and time: 01/09/2024 4:23 PM Age: 73 years old Clinical indication: Altered mental status/memory loss; Additional info: Slight AMS TECHNIQUE: Imaging protocol: Computed tomography of the head without contrast. Radiation optimization: All CT scans at this facility use at least one of these dose optimization techniques: automated exposure control; mA and/or kV adjustment per patient size (includes targeted exams where dose is matched to clinical indication); or iterative reconstruction. COMPARISON: CT HEAD/BRAIN WO CON 12/21/2023 5:07 PM FINDINGS: Brain: There is no acute cortical infarction, intracranial hemorrhage or mass. There is moderate diffuse heterogeneity of the white matter, most consistent with microangiopathy. Cerebral ventricles: The ventricles appear enlarged, but not out of proportion to the degree of parenchymal volume loss. Paranasal sinuses: The left maxillary antrum is hypoplastic and opacified which is similar appearance to the 12/21/2023 CT. The remainder of the paranasal sinuses are clear. Mastoid air cells: No mastoid effusion. Bones/joints: Unremarkable. No acute fracture. Soft tissues: Unremarkable. IMPRESSION: No acute intracranial findings.
--- NOTE | 2024-01-09 13:48 | ECG_ITS ---
APPROVED REPORT Exam: Resting ECG HR:111 bpm ECG Measurements Heart Rate 111 AXES FL 120 P 55 QRSd 77 QRS 45 QT 336 T 11 QTc 401 Conclusion SINUS TACHYCARDIA WITH OCCASIONAL VENTRICULAR PREMATURE COMPLEXES ST DEVIATION AND MODERATE T-WAVE ABNORMALITY, CONSIDER LATERAL ISCHEMIA [-0.1+ mV T-WAVE IN I/aVL/V5/V6] ST DEVIATION AND MODERATE T-WAVE ABNORMALITY, CONSIDER INFERIOR ISCHEMIA [-0.1+ mV T-WAVE IN II/aVF] ABNORMAL ECG UNCONFIRMED REPORT Electronically signed by : SEA CHINCHILLA, 01/12/2024 03:02:34
--- NOTE | 2024-01-09 13:48 | XR_ITS ---
FINAL REPORT CLINICAL HISTORY: soa COMPARISON: 09/02/2023 FINDINGS: A single portable view of the chest was obtained. The heart size and pulmonary vascularity are within normal limits. The mediastinum is within normal limits. No acute pulmonary abnormality is identified. The bony thorax is intact. No significant changes noted since the prior chest x-ray of August 2023. IMPRESSION: No active cardiopulmonary disease. Reviewed, Interpreted and Dictated by Landen Alicia MD Transcribed by Lyndsey Morse Authenticated and [facility]
--- NOTE | 2024-01-09 13:53 | ED_ITS ---
Discharge Plan Disposition Patient Disposition: Admitted Clinical Impressions Clinical Impression: Acute hypoxemic respiratory failure, Shortness of breath, Acidosis, lactic, Metabolic acidosis, KRISTIE (acute kidney injury), Acute hypokalemia Discharge ED Provider: Nadeem Castro HPI <Corey Rider MD - Last Filed: 01/09/24 15:28> General Chief Complaint: Shortness of Breath/Dyspnea Stated Complaint: SOA Time Seen by Provider: 01/09/24 13:48 History of Present Illness HPI narrative: 73-year-old female presents to the ER from [facility] via EMS. Patient has reported history of COPD. EMS was called for concerns of shortness of breath, they also report that the facility told them she was a little more confused than her baseline. Reportedly patient usually wears 2 L nasal cannula, she states she has been feeling short of breath for a couple days. She denies pain elsewhere. She developed motion sickness with the ambulance and has had 1 episode of emesis here but has not been having abdominal pain, nausea, vomiting, or diarrhea. She denies injuries. EMS reports that patient was found on 2 L nasal cannula saturating only in the 70s, they placed her on 4 L and she improved up to the 90s. She was tachycardic and round with rates in the 110s, blood pressure with systolic of 110. Related Data Home Medications Medication Instructions Recorded Confirmed buspirone 10 mg tablet 10 mg PO BID 11/20/23 11/20/23 famotidine 20 mg tablet 20 mg PO BID 11/20/23 11/20/23 metformin 500 mg tablet 500 mg PO BID 11/20/23 11/20/23 sertraline 100 mg tablet 100 mg PO DAILY 11/20/23 11/20/23 Previous Rx's Medication Instructions Recorded clindamycin HCl 150 mg capsule 450 mg (3 x 150 mg) PO TID 5 days 11/20/23 #45 caps Allergies Allergy/AdvReac Type Severity Reaction Status Date / Time Penicillins Allergy Mild Verified 09/02/23 20:59 PFS <Corey Rider MD - Last Filed: 01/09/24 15:28> [facility] Disclaimer: The information contained in this section may have been updated after the patient was seen, as this information can be updated by other users. Medical History (Updated 01/09/24 @ 21:05 by Nadeem Castro MD) Diabetes mellitus, type 2 Social History Smoking Status: Never smoker alcohol intake: never current occupational status: other Travel in the last 8 weeks: None <Corey Rider MD - Last Filed: 01/09/24 15:28> ROS Obtained: Yes All systems reviewed & no additional complaints except as documented Constitutional Constitutional: Denies chills, Denies fever(s), Denies headache(s) and Denies weakness Comments: Slight increasing confusion from baseline Eyes Eyes: Denies change in vision ENT Ears, Nose, Mouth, and Throat: Denies dizziness, Denies headache(s), Denies nasal congestion and Denies sore throat Cardiovascular Cardiovascular: Denies chest pain, Reports dyspnea and Denies leg edema Respiratory Respiratory: Denies cough and Reports dyspnea Gastrointestinal Gastrointestingal: Denies constipation, diarrhea, nausea or vomiting Genitourinary Female Genitourinary: Denies dysuria Musculoskeletal Musculoskeletal: Denies arthralgias, Denies myalgias, Denies numbness and Denies tingling Integumentary/Breasts Skin/Breast: Denies change in pigmentation Neurologic Neurologic: Denies dizziness, Denies headache(s), Denies numbness, Denies tingling and Denies weakness Physical Exam <Corey Rider MD - Last Filed: 01/09/24 15:28> General General appearance: alert Comment: Chronically ill-appearing Head Head exam: atraumatic and normocephalic Eye Eye exam: Present PERRL and EOMI ENT ENT exam: Present mucous membranes moist and other (Lips are pale, poor distinction between lips and face) Neck Neck exam: Present normal inspection and full ROM Chest Chest inspection: Present symmetric chest wall rise Respiratory Respiratory exam: Present normal lung sounds bilaterally and other (Good air movement throughout); Absent respiratory distress, wheezes or stridor Cardiovascular Cardiovascular exam: Present normal rhythm and tachycardia Abdominal Exam Abdominal exam: Present soft; Absent distention, tenderness, guarding or rebound Extremities Exam Extremities exam: Present other (No findings of injury on exam); Absent edema Neurological Exam Neurological exam: Present alert and oriented X3; Absent motor sensory deficit Psychiatric Psychiatric exam: Present normal affect and normal mood Skin Skin exam: Present warm and dry HEART Score <Corey Rider MD - Last Filed: 01/09/24 15:28> HEART Score HEART Score assessment performed?: No Critical Care <Corey Rider MD - Last Filed: 01/09/24 15:28> Critical Care Time Critical Care Time: Yes Attestation: On 01/09/24, the high probability of a clinically significant, sudden or life threatening deterioration of the following system(s) (respiratory, cardiac, neurologic) required my full and direct attention, intervention and personal management. The time I documented below is in addition to time spent performing reported procedures but includes the following listed in this critical care notation. Total Time Total Critical Care Time: 35 <Nadeem Castro MD - Last Filed: 01/09/24 21:05> Total Time Total Critical Care Time: 60 Medical Decision Making <Corey Rider MD - Last Filed: 01/09/24 15:28> Dax Inquiry Pt receiving controlled substance: No Vital Signs Vital Signs: 01/09/24 13:45 01/09/24 14:26 01/09/24 14:30 Temperature 97.7 F Temperature Source Oral Pulse Rate 116 H 112 H Pulse Rate [Left Radial] 112 H Respiratory Rate 20 Blood Pressure 132/73 144/75 H Blood Pressure [Right Arm] 139/80 Blood Pressure Mean 92 98 Blood Pressure Mean [Right Arm] 99 02 Sat by Pulse Oximetry 95 96 95 Oxygen Delivery Method Nasal Cannula Oxygen Flow Rate (LPM) 4 01/09/24 15:12 01/09/24 16:00 01/09/24 16:41 Temperature Temperature Source Pulse Rate 112 H 102 H 95 H Pulse Rate [Left Radial] Respiratory Rate Blood Pressure 122/78 109/88 L 139/87 Blood Pressure [Right Arm] Blood Pressure Mean 94 104 Blood Pressure Mean [Right Arm] 02 Sat by Pulse Oximetry 100 100 100 Oxygen Delivery Method Oxygen Flow Rate (LPM) 01/09/24 17:01 01/09/24 17:31 01/09/24 18:00 Temperature Temperature Source Pulse Rate 122 H 65 85 Pulse Rate [Left Radial] Respiratory Rate Blood Pressure 139/104 H 137/85 138/69 Blood Pressure [Right Arm] Blood Pressure Mean 112 102 104 Blood Pressure Mean [Right Arm] 02 Sat by Pulse Oximetry 85 L 83 L 99 Oxygen Delivery Method Oxygen Flow Rate (LPM) 01/09/24 18:30 Temperature Temperature Source Pulse Rate 76 Pulse Rate [Left Radial] Respiratory Rate Blood Pressure 151/60 H Blood Pressure [Right Arm] Blood Pressure Mean Blood Pressure Mean [Right Arm] 02 Sat by Pulse Oximetry 85 L Oxygen Delivery Method Oxygen Flow Rate (LPM) Lab Data Labs: Lab Results 01/09/24 14:27: Urine Color Yellow, Urine Appearance Clear, Urine pH 6.0, Ur Specific Chrisman 1.020, Urine Protein Negative, Urine Glucose (UA) Negative, Urine Ketones Negative, Urine Blood Negative, Urine Nitrate Negative, Urine Bilirubin 1+ A, Urine Urobilinogen 0.2, Ur Leukocyte Esterase Negative, Urine RBC None, Urine WBC Occasional, Ur Squamous Epith Cells Occasional, Urine Bacteria Trace, Urine Yeast Occasional 01/09/24 15:00: WBC 17.9 H, RBC 4.50, Hgb 14.1, Hct 44.3, MCV 98.5, MCH 31.3 H, MCHC 31.7 L, RDW 18.3 H, Plt Count 423, MPV 8.8, Neut % (Auto) 89.6 H, Lymph % (Auto) 5.9 L, Branch % (Auto) 3.4, Eos % (Auto) 0.8, Baso % (Auto) 0.2, Neut # (Auto) 16.0 H, Lymph # (Auto) 1.1, Branch # (Auto) 0.6, Eos # (Auto) 0.1, Baso # (Auto) 0.0, Total Counted 100, Neutrophils % (Manual) 87 H, Lymphocytes % (Manual) 10, Monocytes % (Manual) 3, Platelet Estimate Normal, RBC Morphology Normal, Sodium 137, Potassium 3.0 L, Chloride 102, Carbon Dioxide 9 L*, Anion Gap 29.0 H, BUN 20 H, Creatinine 1.70 H, Estimated Creat Clear 30, Estimated GFR 29 L, Est GFR ( Amer) 36 L, Glucose 246 H, Lactate 9.1 H, Calcium 8.8, Total Bilirubin 0.8, AST 92 H, ALT 67, Alkaline Phosphatase 132 H, Troponin I 0.04 H, Total Protein 6.3, Albumin 3.7, Globulin 2.6, Albumin/Globulin Ratio 1.4, Lipase 112 01/09/24 15:06: VBG pH 7.21 L, VBG pCO2 26.9 L, VBG pO2 44.9 H, VBG HCO3 10.4 L, VBG Total CO2 11.3 L, VBG O2 Saturation 70.9 H, VBG Base Excess -17.5 L, VBG Lactic Acid 10.4 H 01/09/24 17:05: Troponin I 0.05 H 01/09/24 15:00 01/09/24 15:00 Response Orders (Tests/Meds): ED MEDICATIONS Generic Name Dose Route Start Last Admin Trade Name Daljit PRN Reason Stop Dose Admin Heparin Sodium (Porcine) 5,000 unit 01/09/24 21:00 Heparin Sodium 5,000 Unit/Ml Vial SQ 02/08/24 20:59 BID CASPER Potassium Chloride/Water 100 mls @ 50 mls/hr 01/09/24 15:57 01/09/24 18:50 Potassium Chloride 20meq/100ml Ivpb IV 01/09/24 21:56 50 mls/hr Q2H [facility] Administration Sodium Chloride 1,000 mls @ 50 mls/hr 01/09/24 18:30 Sod Chlor 0.9% 1000ml Bag IV 02/08/24 18:29 .Q20H CAS[facility] Miscellaneous 1 each 01/09/24 19:45 Vancomycin Consult Request NOTAPPLIC 02/08/24 19:44 CONSULT PHARMACY [facility] Ondansetron HCl 4 mg 01/09/24 18:19 Ondansetron 4mg/2ml Vial IV 02/08/24 18:18 Q8HP PRN Nausea Sodium Chloride 10 ml 01/09/24 16:34 01/09/24 16:37 Sodium Chloride 0.9% 10ml Syr (Rad Only) IV 02/08/24 16:33 10 ml NEEDED PRN Administration Maintain IV Site Discontinued Medications Generic Name Dose Route Start Last Admin Trade Name Daljit PRN Reason Stop Dose Admin Lactated Ringer's 1,000 mls @ 999 mls/hr 01/09/24 13:51 01/09/24 15:12 Lactated Ringer's 1000 Ml Bag IV 01/09/24 14:51 999 mls/hr .Q1H1M ONE Administration Lactated Ringer's 1,000 mls @ 999 mls/hr 01/09/24 15:13 01/09/24 16:42 Lactated Ringer's 1000 Ml Bag IV 01/09/24 16:13 999 mls/hr .Q1H1M ONE Administration Cefepime HCl 2 gm/ Sodium 100 mls @ 200 mls/hr 01/09/24 15:30 01/09/24 15:59 Chloride IV 01/09/24 15:59 200 mls/hr ONCE ONE Administration Metronidazole 500 mg in 100 mls @ 100 mls/hr 01/09/24 15:13 01/09/24 16:42 Flagyl 500mg/100ml Ivpb IV 01/09/24 16:12 100 mls/hr ONCE ONE Administration Vancomycin/PEG/NADA/Lysine/Water 1.25 gm in 250 mls @ 125 mls/hr 01/09/24 16:00 01/09/24 16:42 Vancomycin 1.25gm/250ml (Peg) Premix IV 01/09/24 17:59 125 mls/hr ONCE ONE Administration Iopamidol 70 ml 01/09/24 16:34 01/09/24 16:37 Iopamidol-370 (76%);100ml Bottle IV 01/09/24 16:35 70 ml ONCE ONE Administration Miscellaneous 1 each 01/09/24 15:15 01/09/24 15:21 Vancomycin Consult Request NOTAPPLIC 02/08/24 15:14 1 each CONSULT PHARMACY [facility] Administration Ondansetron HCl 4 mg 01/09/24 13:48 01/09/24 15:13 Ondansetron 4mg/2ml Vial IM 01/09/24 13:49 Not Given ONCE ONE Ondansetron HCl 4 mg 01/09/24 14:13 01/09/24 15:13 Ondansetron 4mg/2ml Vial IV 01/09/24 14:14 4 mg ONCE ONE Administration Ondansetron HCl 4 mg 01/09/24 17:05 01/09/24 17:05 Ondansetron 4mg/2ml Vial IV 01/09/24 17:06 4 mg ONCE ONE Administration Sodium Chloride 50 ml 01/09/24 16:34 01/09/24 16:37 0.9 % Sodium Chloride 50 Ml Vial IV 01/09/24 16:35 50 ml ONCE ONE Administration ORDERS Category Date Time Status CT abdomen pelvis w con Stat Cat Scan 01/09/24 15:[address] head/brain wo con Stat Cat Scan 01/09/24 13:48 Completed CTA Chest [CT angio chest PE protocol] Stat Cat Scan 01/09/24 13:48 Completed CXR --portable [XR chest portable] Stat Exams 01/09/24 13:48 Completed Basic Metabolic Panel AMLAB Lab 01/10/24 06:00 Ordered Basic Metabolic Panel AMLAB Lab 01/11/24 06:00 Ordered Basic Metabolic Panel AMLAB Lab 01/12/24 06:00 Ordered CBC w/Auto Diff [Complete Blood Count Auto Diff] Stat Lab 01/09/24 15:00 Completed CMP [Comprehensive Metabolic Panel] Stat Lab 01/09/24 15:00 Completed Complete Blood Count Auto Diff AMLAB Lab 01/10/24 06:00 Ordered Complete Blood Count Auto Diff AMLAB Lab 01/11/24 06:00 Ordered Complete Blood Count Auto Diff AMLAB Lab 01/12/24 06:00 Ordered Lactic Acid Stat Lab 01/09/24 15:00 Completed Lipase Stat Lab 01/09/24 15:00 Completed Trop I [Troponin I] Stat Lab 01/09/24 15:00 Completed Troponin I Q3H Lab 01/09/24 17:05 Completed Troponin I Q3H Lab 01/09/24 20:00 Ordered Urinalysis and Microscopic Stat Lab 01/09/24 14:27 Completed Blood Culture Stat Micro 01/09/24 15:55 Received Urine Culture Stat Micro 01/09/24 14:47 Received VBG [Venous Blood Gas] Stat RT 01/09/24 15:06 Completed MDM Narrative Medical Decision Narrative: In summary, this 73year old female presents to the emergency department today with concerns of shortness of breath, may be slightly increasing confusion. On initial evaluation patient is tachycardic but normotensive, her lips are pale but she has good capillary refill peripherally, oxygen saturation [] on 4 L nasal cannula, lungs clear bilaterally with good air movement, no peripheral edema. Differential diagnosis includes but is not limited to urinary tract infection, COPD exacerbation, considered hypercarbia, ACS, PE, I did consider sepsis but patient does not meet SIRS criteria. If she has an elevated white count then I will proceed with broad-spectrum antibiotics. Based on these concerns, I ordered broad workup including CT head, chest x-ray, CTA PE, basic labs, cardiac workup. ECG personally interpreted demonstrates sinus tachycardia, rate 111, normal TN and QTc, patient does have T wave inversions in lead III and aVF, normal axis, no STEMI. Patient received IV fluids, Zofran for treatment initially. Labs personally reviewed demonstrate urine negative for findings of infection. Lab called with results of patient's VBG which demonstrates pH 7.20, lactate 10, she will receive full sepsis bolus of IV fluids as well as broad-spectrum antibiotics which I am ordering to include vancomycin, cefepime, Flagyl. CBC returned with WBC 17.9, no anemia,. Additional labs pending at this time. Patient handed off to Dr. Castro at physician shift change for further management and disposition. <Nadeem Castro MD - Last Filed: 01/09/24 21:05> Vital Signs Vital Signs: 01/09/24 13:45 01/09/24 14:26 01/09/24 14:30 Temperature 97.7 F Temperature Source Oral Pulse Rate 116 H 112 H Pulse Rate [Left Radial] 112 H Respiratory Rate 20 Blood Pressure 132/73 144/75 H Blood Pressure [Right Arm] 139/80 Blood Pressure Mean 92 98 Blood Pressure Mean [Right Arm] 99 02 Sat by Pulse Oximetry 95 96 95 Oxygen Delivery Method Nasal Cannula Oxygen Flow Rate (LPM) 4 01/09/24 15:12 01/09/24 16:00 01/09/24 16:41 Temperature Temperature Source Pulse Rate 112 H 102 H 95 H Pulse Rate [Left Radial] Respiratory Rate Blood Pressure 122/78 109/88 L 139/87 Blood Pressure [Right Arm] Blood Pressure Mean 94 104 Blood Pressure Mean [Right Arm] 02 Sat by Pulse Oximetry 100 100 100 Oxygen Delivery Method Oxygen Flow Rate (LPM) 01/09/24 17:01 01/09/24 17:31 01/09/24 18:00 Temperature Temperature Source Pulse Rate 122 H 65 85 Pulse Rate [Left Radial] Respiratory Rate Blood Pressure 139/104 H 137/85 138/69 Blood Pressure [Right Arm] Blood Pressure Mean 112 102 104 Blood Pressure Mean [Right Arm] 02 Sat by Pulse Oximetry 85 L 83 L 99 Oxygen Delivery Method Oxygen Flow Rate (LPM) 01/09/24 18:30 Temperature Temperature Source Pulse Rate 76 Pulse Rate [Left Radial] Respiratory Rate Blood Pressure 151/60 H Blood Pressure [Right Arm] Blood Pressure Mean Blood Pressure Mean [Right Arm] 02 Sat by Pulse Oximetry 85 L Oxygen Delivery Method Oxygen Flow Rate (LPM) Lab Data Labs: Lab Results 01/09/24 14:27: Urine Color Yellow, Urine Appearance Clear, Urine pH 6.0, Ur Specific Chrisman 1.020, Urine Protein Negative, Urine Glucose (UA) Negative, Urine Ketones Negative, Urine Blood Negative, Urine Nitrate Negative, Urine Bilirubin 1+ A, Urine Urobilinogen 0.2, Ur Leukocyte Esterase Negative, Urine RBC None, Urine WBC Occasional, Ur Squamous Epith Cells Occasional, Urine Bacteria Trace, Urine Yeast Occasional 01/09/24 15:00: WBC 17.9 H, RBC 4.50, Hgb 14.1, Hct 44.3, MCV 98.5, MCH 31.3 H, MCHC 31.7 L, RDW 18.3 H, Plt Count 423, MPV 8.8, Neut % (Auto) 89.6 H, Lymph % (Auto) 5.9 L, Branch % (Auto) 3.4, Eos % (Auto) 0.8, Baso % (Auto) 0.2, Neut # (Auto) 16.0 H, Lymph # (Auto) 1.1, Branch # (Auto) 0.6, Eos # (Auto) 0.1, Baso # (Auto) 0.0, Total Counted 100, Neutrophils % (Manual) 87 H, Lymphocytes % (Manual) 10, Monocytes % (Manual) 3, Platelet Estimate Normal, RBC Morphology Normal, Sodium 137, Potassium 3.0 L, Chloride 102, Carbon Dioxide 9 L*, Anion Gap 29.0 H, BUN 20 H, Creatinine 1.70 H, Estimated Creat Clear 30, Estimated GFR 29 L, Est GFR ( Amer) 36 L, Glucose 246 H, Lactate 9.1 H, Calcium 8.8, Total Bilirubin 0.8, AST 92 H, ALT 67, Alkaline Phosphatase 132 H, Troponin I 0.04 H, Total Protein 6.3, Albumin 3.7, Globulin 2.6, Albumin/Globulin Ratio 1.4, Lipase 112 01/09/24 15:06: VBG pH 7.21 L, VBG pCO2 26.9 L, VBG pO2 44.9 H, VBG HCO3 10.4 L, VBG Total CO2 11.3 L, VBG O2 Saturation 70.9 H, VBG Base Excess -17.5 L, VBG Lactic Acid 10.4 H 01/09/24 17:05: Troponin I 0.05 H Response Orders (Tests/Meds): ED MEDICATIONS Generic Name Dose Route Start Last Admin Trade Name Daljit PRN Reason Stop Dose Admin Heparin Sodium (Porcine) 5,000 unit 01/09/24 21:00 Heparin Sodium 5,000 Unit/Ml Vial SQ 02/08/24 20:59 BID CASPER Potassium Chloride/Water 100 mls @ 50 mls/hr 01/09/24 15:57 01/09/24 18:50 Potassium Chloride 20meq/100ml Ivpb IV 01/09/24 21:56 50 mls/hr Q2H [facility] Administration Sodium Chloride 1,000 mls @ 50 mls/hr 01/09/24 18:30 Sod Chlor 0.9% 1000ml Bag IV 02/08/24 18:29 .Q20H [facility] Miscellaneous 1 each 01/09/24 19:45 Vancomycin Consult Request NOTAPPLIC 02/08/24 19:44 CONSULT PHARMACY [facility] Ondansetron HCl 4 mg 01/09/24 18:19 Ondansetron 4mg/2ml Vial IV 02/08/24 18:18 Q8HP PRN Nausea Sodium Chloride 10 ml 01/09/24 16:34 01/09/24 16:37 Sodium Chloride 0.9% 10ml Syr (Rad Only) IV 02/08/24 16:33 10 ml NEEDED PRN Administration Maintain IV Site Discontinued Medications Generic Name Dose Route Start Last Admin Trade Name Daljit PRN Reason Stop Dose Admin Lactated Ringer's 1,000 mls @ 999 mls/hr 01/09/24 13:51 01/09/24 15:12 Lactated Ringer's 1000 Ml Bag IV 01/09/24 14:51 999 mls/hr .Q1H1M ONE Administration Lactated Ringer's 1,000 mls @ 999 mls/hr 01/09/24 15:13 01/09/24 16:42 Lactated Ringer's 1000 Ml Bag IV 01/09/24 16:13 999 mls/hr .Q1H1M ONE Administration Cefepime HCl 2 gm/ Sodium 100 mls @ 200 mls/hr 01/09/24 15:30 01/09/24 15:59 Chloride IV 01/09/24 15:59 200 mls/hr ONCE ONE Administration Metronidazole 500 mg in 100 mls @ 100 mls/hr 01/09/24 15:13 01/09/24 16:42 Flagyl 500mg/100ml Ivpb IV 01/09/24 16:12 100 mls/hr ONCE ONE Administration Vancomycin/PEG/NADA/Lysine/Water 1.25 gm in 250 mls @ 125 mls/hr 01/09/24 16:00 01/09/24 16:42 Vancomycin 1.25gm/250ml (Peg) Premix IV 01/09/24 17:59 125 mls/hr ONCE ONE Administration Iopamidol 70 ml 01/09/24 16:34 01/09/24 16:37 Iopamidol-370 (76%);100ml Bottle IV 01/09/24 16:35 70 ml ONCE ONE Administration Miscellaneous 1 each 01/09/24 15:15 01/09/24 15:21 Vancomycin Consult Request NOTAPPLIC 02/08/24 15:14 1 each CONSULT PHARMACY [facility] Administration Ondansetron HCl 4 mg 01/09/24 13:48 01/09/24 15:13 Ondansetron 4mg/2ml Vial IM 01/09/24 13:49 Not Given ONCE ONE Ondansetron HCl 4 mg 01/09/24 14:13 01/09/24 15:13 Ondansetron 4mg/2ml Vial IV 01/09/24 14:14 4 mg ONCE ONE Administration Ondansetron HCl 4 mg 01/09/24 17:05 01/09/24 17:05 Ondansetron 4mg/2ml Vial IV 01/09/24 17:06 4 mg ONCE ONE Administration Sodium Chloride 50 ml 01/09/24 16:34 01/09/24 16:37 0.9 % Sodium Chloride 50 Ml Vial IV 01/09/24 16:35 50 ml ONCE ONE Administration ORDERS Category Date Time Status CT abdomen pelvis w con Stat Cat Scan 01/09/24 15:[address] head/brain wo con Stat Cat Scan 01/09/24 13:48 Completed CTA Chest [CT angio chest PE protocol] Stat Cat Scan 01/09/24 13:48 Completed CXR --portable [XR chest portable] Stat Exams 01/09/24 13:48 Completed Basic Metabolic Panel AMLAB Lab 01/10/24 06:00 Ordered Basic Metabolic Panel AMLAB Lab 01/11/24 06:00 Ordered Basic Metabolic Panel AMLAB Lab 01/12/24 06:00 Ordered CBC w/Auto Diff [Complete Blood Count Auto Diff] Stat Lab 01/09/24 15:00 Completed CMP [Comprehensive Metabolic Panel] Stat Lab 01/09/24 15:00 Completed Complete Blood Count Auto Diff AMLAB Lab 01/10/24 06:00 Ordered Complete Blood Count Auto Diff AMLAB Lab 01/11/24 06:00 Ordered Complete Blood Count Auto Diff AMLAB Lab 01/12/24 06:00 Ordered Lactic Acid Stat Lab 01/09/24 15:00 Completed Lipase Stat Lab 01/09/24 15:00 Completed Trop I [Troponin I] Stat Lab 01/09/24 15:00 Completed Troponin I Q3H Lab 01/09/24 17:05 Completed Troponin I Q3H Lab 01/09/24 20:00 Ordered Urinalysis and Microscopic Stat Lab 01/09/24 14:27 Completed Blood Culture Stat Micro 01/09/24 15:55 Received Urine Culture Stat Micro 01/09/24 14:47 Received VBG [Venous Blood Gas] Stat RT 01/09/24 15:06 Completed MDM Narrative Medical Decision Narrative: In summary, this 73year old female presents to the emergency department today with concerns of shortness of breath, may be slightly increasing confusion. On initial evaluation patient is tachycardic but normotensive, her lips are pale but she has good capillary refill peripherally, oxygen saturation on 4 L nasal cannula, lungs clear bilaterally with good air movement, no peripheral edema. Differential diagnosis includes but is not limited to urinary tract infection, COPD exacerbation, considered hypercarbia, ACS, PE, I did consider sepsis but patient does not meet SIRS criteria. If she has an elevated white count then I will proceed with broad-spectrum antibiotics. Based on these concerns, I ordered broad workup including CT head, chest x-ray, CTA PE, basic labs, cardiac workup. ECG personally interpreted demonstrates sinus tachycardia, rate 111, normal TN and QTc, patient does have T wave inversions in lead III and aVF, normal axis, no STEMI. Patient received IV fluids, Zofran for treatment initially. Labs personally reviewed demonstrate urine negative for findings of infection. Lab called with results of patient's VBG which demonstrates pH 7.20, lactate 10, she will receive full sepsis bolus of IV fluids as well as broad-spectrum antibiotics which I am ordering to include vancomycin, cefepime, Flagyl. CBC returned with WBC 17.9, no anemia,. Additional labs pending at this time. Patient handed off to Dr. Castro at physician shift change for further management and disposition. Matthew: I assumed primary responsibility for this patient after signout from previous physician. On my evaluation, patient with no complaints. Lungs are clear to auscultation bilaterally, abdomen soft, nontender, nondistended. No lower extremity edema. Patient states she feels very well. Patient still requiring 4 L nasal cannula to saturate appropriately. Independent rotation of workup with leukocytosis 18,000 with neutrophilia. Her VBG is concerning for metabolic acidosis pH 7.21, CO2 low at 26, bicarb low at 10, lactate 10.4. Patient's potassium on chemistry 3.0, this was repleted with IV potassium. KRISTIE with creatinine 1.7 up from normal baseline. Patient given fluids for this. Initial troponin 0.04, repeat troponin 0.05. LFTs nonactionable. Lipase negative. Urinalysis without concern for UTI. CT of the chest abdomen and pelvis without acute concern for any abnormalities. CT head without intracranial hemorrhage or intracranial abnormality. Because patient still requiring oxygen, extremely high lactic acid, empiric antibiotics were ordered. Hospitalist was contacted and case was discussed at length, patient be admitted to clear blood cultures and for observation and further management. Because patient high risk for clinical decompensation, deemed appropriate for inpatient admission. Results were relayed to patient who voiced understanding and patient was agreeable to inpatient admission and management. Patient was admitted to the hospital for further definitive management.
[2024-01-09 14:45] LABS: Microscopic, Urine URINE MICROSCOPIC (MICROSCOPIC)
[2024-01-09 14:51] LABS: Appearance,Urine CLEAR (Clear); Blood, Urine Negative (Negative); Color,Urine YELLOW (Yellow); Glucose,Urine (UA) Negative (Negative); Ketones,Urine Negative (Negative); Leukocyte Esterase,Urine Negative (Negative); Nitrate,Urine Negative (Negative); Protein,Urine Negative (Negative); Urobilinogen,Urine 0.2 EU/dl (0.2)
[2024-01-09 15:00] LABS: Bilirubin,Urine 1+ (Negative)
[2024-01-09 15:08] LABS: Bacteria,Urine Trace /lpf; Squamous Epithelial Cell,Urine Occasional #/hpf (0-5); WBC,Urine Occasional #/hpf (0-3)
[2024-01-09 15:09] LABS: Yeast,Urine Occasional /lpf
[2024-01-09 15:11] LABS: VBG Base Excess -17.5 mmol/L (-2.4-2.3); VBG HCO3 10.4 mmol/L (23-30); VBG Oxygen Saturation 70.9 % (50-70); VBG PCO2 26.9 mmol/L (35-51); VBG PH 7.21 mmol/L (7.31-7.41); VBG PO2 44.9 mmol/L (28-40); VBG Total CO2 11.3 mmol/L (23-27)
[2024-01-09 15:12] LABS: Lactate Venous 10.4 mmol/L (0.4-2.0)
[2024-01-09] MEDS: LACTATED RINGERS 1000ML 1,000 ML 999 ML IV ×2 (15:12→16:42)
[2024-01-09] MEDS: ONDANSETRON 4MG/2ML VIAL 4 MG IV ×2 (15:13→17:05)
[2024-01-09 15:14] LABS: Basophils % 0.2 % (0.1-2.0); Eosinophils # 0.1 K/mm3 (0.0-0.4); Eosinophils % 0.8 % (0.1-12.0); Hematocrit 44.3 % (37.0-47.0); Hemoglobin 14.1 g/dL (12.2-16.2); Lymphocytes # 1.1 K/mm3 (0.7-4.5); Lymphocytes % 5.9 % (10-50); Mean Corpuscular HGB Conc 31.7 g/dL (31.8-35.4); Mean Corpuscular Hemoglobin 31.3 pg (27.0-31.2); Mean Corpuscular Volume 98.5 fl (81-99); Mean Platelet Volume 8.8 fl (7.4-10.4); Monocytes # 0.6 K/mm3 (0.1-1.0); Monocytes % 3.4 % (1.7-9.3); Neutrophils % 89.6 % (37.0-80.0); Platelet Count 423 K/mm3 (142-424); Red Cell Distribution Width 18.3 % (11.5-17.5); White Blood Count 17.9 K/mm3 (4.8-10.8)
--- NOTE | 2024-01-09 15:14 | CT_ITS ---
PROCEDURE INFORMATION: Exam: CT Abdomen And Pelvis With Contrast Exam date and time: 01/09/2024 4:28 PM Age: 73 years old Clinical indication: Condition or disease; Other: Sepsis; Additional info: Lactic 10, sepsis TECHNIQUE: Imaging protocol: Computed tomography of the abdomen and pelvis with contrast. Radiation optimization: All CT scans at this facility use at least one of these dose optimization techniques: automated exposure control; mA and/or kV adjustment per patient size (includes targeted exams where dose is matched to clinical indication); or iterative reconstruction. Contrast material: ISOVUE; Contrast volume: 70 ml; Contrast route: IV; COMPARISON: CR XR HIP LT 2-3V W/PELVIS 12/21/2023 5:06 PM FINDINGS: Lungs: The visualized lung bases are clear. Pleural spaces: There are no pleural effusions. Heart: The visualized portions of the heart are unremarkable. There is no evidence of pericardial fluid collections. Diaphragm: A small hiatal hernia is present. Liver: There is diffuse decrease in hepatic/liver parenchymal density consistent with fatty infiltration. Gallbladder and bile ducts: There has been a cholecystectomy. Pancreas: The pancreas is normal. Spleen: The spleen is normal. Adrenal glands: The adrenal glands are normal. Kidneys and ureters: 2 small subcentimeter hypodensities in the left kidney are too small to adequately characterize but likely cysts. The kidneys are otherwise within range of normal. Stomach and bowel: The stomach is normal. The duodenum is unremarkable. Lack of gastrointestinal contrast limits evaluation of bowel. Unopacified loops of small bowel within range of normal. The colon is normal. Appendix: No evidence of appendicitis. Intraperitoneal space: There is no evidence of free intraperitoneal or pelvic fluid. No evidence of intraperitoneal free air. There is a mildly swirled appearance to the central mesentery, best seen on series 13, images 47 to 67 which could reflect an internal hernia. Correlate clinically. Vasculature: The aorta demonstrates mild atherosclerotic calcification. Lymph nodes: There is no evidence of pathologic adenopathy. Urinary bladder: The bladder is incompletely distended. As seen, appears within range of normal. Reproductive: The uterus is normal. No adnexal cysts or masses are identified. Bones/joints: There is mild diffuse osteopenia. There are moderate compressive changes involving T12. There is very trace retropulsion of the posterosuperior aspect of T12. There are mild degenerative changes of the sacroiliac joints. Soft tissues: No significant soft tissue edema. IMPRESSION: 1. Fatty hepatic infiltration. 2. Small hiatal hernia. 3. Moderate compressive changes involving T12, age indeterminate without prior studies for comparison, but likely chronic. Correlate clinically. 4. A Mildly swirled appearance to the central mesentery which could reflect an internal hernia. COMMENTS: Consistent with the [employer]'s Incidental Findings Committee white paper (J Am Minh Radiol 2018): Any incidental renal lesion less than 1 cm or classified as too small to characterize, or any incidental cystic renal lesion characterized as simple-appearing, is likely benign. No follow-up imaging is recommended for these lesions per consensus recommendations based on imaging criteria.
[2024-01-09 15:15] LABS: MANUAL DIFFERENTIAL MANUAL DIFFERENTIAL (MANUAL DIFF)
[2024-01-09] MEDS: VANCOMYCIN CONSULT REQUEST 1 EACH NOTAPPLIC (15:21)
[2024-01-09 15:29] LABS: Lymphocytes % 10 % (10-50); Monocytes % 3 % (2-9); Neutrophils % 87 % (42-76); Platelet Estimate Normal; RBC Morphology Normal; Total Cells Counted 100
[2024-01-09 15:30] LABS: Chloride 102 mmol/L (98-107); Sodium 137 mmol/L (136-145)
[2024-01-09 15:32] LABS: Blood Urea Nitrogen 20 mg/dl (7-17); Creatinine Clearance Estimated 30 mL/min (50-200); Estimated Glomerular Filt Rate 29 ml/min (>60); GFR (African American) 36 ML/MIN (>60)
[2024-01-09 15:33] LABS: Alanine Aminotransferase 67 U/L (12-78); Albumin Level 3.7 g/dl (3.5-5.0); Albumin/Globulin Ratio 1.4 (1.1-1.8); Alkaline Phosphatase 132 U/L (38-126); Bilirubin,Total 0.8 mg/dl (0.2-1.3); Calcium 8.8 mg/dl (8.4-10.2); Globulin 2.6 g/dL (1.3-3.2); Glucose 246 mg/dl (74-100); Lipase 112 U/L (23-300); Total Protein,Serum 6.3 g/dl (6.3-8.2)
[2024-01-09 15:34] LABS: Carbon Dioxide 9 mmol/L (22.0-30.0)
[2024-01-09 15:35] LABS: Lactic Acid 9.1 mmol/L (0.7-2.1)
--- NOTE | 2024-01-09 15:37 | PC.NURSE ---
employee from [employer] called to check on pt, updated her on POC for pt. informed her to call back for more information.
[2024-01-09 15:40] LABS: Aspartate Amino Transferase 92 U/L (14-36)
[2024-01-09 15:45] LABS: Troponin I 0.04 ng/ml (0.00-0.034)
--- NOTE | 2024-01-09 15:49 | PC.NURSE ---
notified of critical lab values K of 3.0, CO2 9 and Lactate 9.1.
[2024-01-09] MEDS: CEFEPIME HCL 2 GM in 0.9 % SODIUM CHLORIDE 100 ML IV (15:59)
[2024-01-09] MEDS: IOPAMIDOL-370 (76%);100ML BOTTLE 70 ML IV (16:37)
[2024-01-09] MEDS: 0.9 % SODIUM CHLORIDE 50 ML VIAL IV (16:37)
[2024-01-09] MEDS: SODIUM CHLORIDE 0.9% 10ML SYR (RAD ONLY) 10 ML IV (16:37)
[2024-01-09] MEDS: METRONIDAZ/SOD CHL 500 MG/100 ML PIGGYBACK 100 MG IV (16:42)
[2024-01-09] MEDS: VANCOMYCIN/WATER FOR INJ (PEG) 1.25 GM/250 ML PIGGYBACK IV (16:42)
--- NOTE | 2024-01-09 17:49 | PC.NURSE ---
Rounded on pt to see if they had any needs. no needs at this time. advised them of the emergency we had going on and to use the buzzer if they needed anything
[2024-01-09 17:56] LABS: Troponin I 0.05 ng/ml (0.00-0.034)
[2024-01-09] MEDS: KCl 20mEq/100ml 100 ML 50 MEQ IV ×2 (18:50→21:56)
[2024-01-09 19:13] LABS: Reflex Lactic Add Lactic Reflex
--- NOTE | 2024-01-09 19:18 | PC.NURSE ---
report called to pedro on second floor
--- NOTE | 2024-01-09 19:38 | P.HP_ITS ---
History of Present Illness *Admission Date: 01/09/24 *Reason for visit:: SOB *History of present illness: This is a 73-year-old female with PMHx of non insulin-dependent diabetes, resident from [facility] brought in by EMS to the emergency department with concern for SOB. Patient is poor historian. Data collected form EMS and ER documentation. Per EMS they was called for concerns of shortness of breath, they also report that the facility told them she was a little more confused than her baseline. Reportedly patient usually wears 2 L nasal cannula, she states she has been feeling short of breath for a couple days. She denies pain elsewhere. She developed motion sickness with the ambulance and has had 1 episode of emesis here but has not been having abdominal pain, nausea, vomiting, or diarrhea. She denies injuries. EMS reports that patient was found on 2 L nasal cannula saturating only in the 70s, they placed her on 4 L and she improved up to the 90s. She was tachycardic and round with rates in the 110s, blood pressure with systolic of 110. Admitted for treatment and management [facility] Disclaimer: The information contained in this section may have been updated after the patient was seen, as this information can be updated by other users. Medical History (Updated 01/10/24 @ 02:00 by Woody Castaneda APRN) Diabetes mellitus, type 2 Social History Smoking Status: Never smoker alcohol intake: never current occupational status: other Travel in the last 8 weeks: None Review of Systems Review of Systems Review of systems:: unable to obtain Constitutional Constitutional: Denies headache(s) and Denies weakness ENT Ears, Nose, Mouth, and Throat: Denies dizziness and Denies headache(s) *Musculoskeletal Musculoskeletal: Denies numbness and Denies tingling *Neurologic Neurologic: Denies dizziness, Denies headache(s), Denies numbness, Denies tingling and Denies weakness Meds Home Medications and Allergies Home Medications Medication Instructions Recorded Confirmed Type buspirone 10 mg tablet 10 mg PO BID 11/20/23 01/10/24 History famotidine 20 mg tablet 20 mg PO BID 11/20/23 01/10/24 History metformin 500 mg tablet 500 mg PO BID 11/20/23 01/10/24 History sertraline 100 mg tablet 100 mg PO DAILY 11/20/23 01/10/24 History aspirin 81 mg chewable tablet 81 mg PO DAILY 01/10/24 01/10/24 History docusate sodium 100 mg capsule 200 mg PO HS 01/10/24 01/10/24 History ergocalciferol (vitamin D2) 1,250 1,250 mcg PO WEEKLY 01/10/24 01/10/24 History mcg (50,000 unit) capsule (Vitamin D2) hydroxyzine HCl 50 mg tablet 50 mg PO HS 01/10/24 01/10/24 History insulin glargine 100 unit/mL (3 28 unit SQ HS 01/10/24 01/10/24 History mL) subcutaneous pen (Basaglar KwikPen U-100 Insulin) New Prescriptions to Start Prescriptions: Allergies Allergy/AdvReac Type Severity Reaction Status Date / Time Penicillins Allergy Mild Verified 09/02/23 20:59 Exam Data for Last 24 hours Vital signs and Labs for Last 24 Hours: Temp Pulse Resp BP Pulse Ox O2 Del Method O2 Flow Rate 97.7 F 76 20 151/60 H 85 L Nasal Cannula 4 01/09/24 13:45 01/09/24 18:30 01/09/24 13:45 01/09/24 18:30 01/09/24 18:30 01/09/24 13:45 01/09/24 13:45 Laboratory Results - last 24 hr 01/09/24 14:27: Urine Color Yellow, Urine Appearance Clear, Urine pH 6.0, Ur Specific [place] 1.020, Urine Protein Negative, Urine Glucose (UA) Negative, Urine Ketones Negative, Urine Blood Negative, Urine Nitrate Negative, Urine Bilirubin 1+ A, Urine Urobilinogen 0.2, Ur Leukocyte Esterase Negative, Urine RBC None, Urine WBC Occasional, Ur Squamous Epith Cells Occasional, Urine Bacteria Trace, Urine Yeast Occasional 01/09/24 15:00: WBC 17.9 H, RBC 4.50, Hgb 14.1, Hct 44.3, MCV 98.5, MCH 31.3 H, MCHC 31.7 L, RDW 18.3 H, Plt Count 423, MPV 8.8, Neut % (Auto) 89.6 H, Lymph % (Auto) 5.9 L, [place] % (Auto) 3.4, Eos % (Auto) 0.8, Baso % (Auto) 0.2, Neut # (Auto) 16.0 H, Lymph # (Auto) 1.1, [place] # (Auto) 0.6, Eos # (Auto) 0.1, Baso # (Auto) 0.0, Total Counted 100, Neutrophils % (Manual) 87 H, Lymphocytes % (Manual) 10, Monocytes % (Manual) 3, Platelet Estimate Normal, RBC Morphology Normal, Sodium 137, Potassium 3.0 L, Chloride 102, Carbon Dioxide 9 L*, Anion Gap 29.0 H, BUN 20 H, Creatinine 1.70 H, Estimated Creat Clear 30, Estimated GFR 29 L, Est GFR ( Amer) 36 L, Glucose 246 H, Lactate 9.1 H, Calcium 8.8, Total Bilirubin 0.8, AST 92 H, ALT 67, Alkaline Phosphatase 132 H, Troponin I 0.04 H, Total Protein 6.3, Albumin 3.7, Globulin 2.6, Albumin/Globulin Ratio 1.4, Lipase 112 01/09/24 15:06: VBG pH 7.21 L, VBG pCO2 26.9 L, VBG pO2 44.9 H, VBG HCO3 10.4 L, VBG Total CO2 11.3 L, VBG O2 Saturation 70.9 H, VBG Base Excess -17.5 L, VBG Lactic Acid 10.4 H 01/09/24 17:05: Troponin I 0.05 H Temp Pulse Resp BP Pulse Ox O2 Del Method 98.8 F 90 16 138/75 99 Room Air 11/19/23 21:02 11/19/23 23:49 11/19/23 23:49 11/19/23 23:49 11/19/23 23:49 11/19/23 21:02 Laboratory Results - last 24 hr 11/19/23 20:48: VBG pH 7.29 L, VBG pCO2 43.7, VBG pO2 37.0, VBG HCO3 20.5 L, VBG Total CO2 21.9 L, VBG O2 Saturation 67.2, VBG Base Excess -6.0 L 11/19/23 21:10: WBC 10.3, RBC 4.45, Hgb 13.3, Hct 42.2, MCV 94.7, MCH 29.8, MCHC 31.5 L, RDW 15.6, Plt Count 271, MPV 9.0, Neut % (Auto) 84.9 H, Lymph % (Auto) 9.6 L, [place] % (Auto) 3.5, Eos % (Auto) 1.9, Baso % (Auto) 0.1, Neut # (Auto) 8.7 H, Lymph # (Auto) 1.0, [place] # (Auto) 0.4, Eos # (Auto) 0.2, Baso # (Auto) 0.0, Sodium 141, Potassium 3.8, Chloride 108 H, Carbon Dioxide 19 L, Anion Gap 17.8 H , BUN 26 H, Creatinine 0.70, Estimated Creat Clear 71, Estimated GFR 82, Est GFR ( Amer) 99, Glucose 236 H, Calcium 9.2, Total Bilirubin 0.4, AST 30, ALT 22, Alkaline Phosphatase 62, Troponin I < 0.01, Total Protein 6.3, Albumin 3.9, Globulin 2.4, Albumin/Globulin Ratio 1.6 11/19/23 23:41: Urine Color Yellow, Urine Appearance Clear, Urine pH 6.0, Ur Specific [place] >= 1.030, Urine Protein 1+, Urine Glucose (UA) Negative, Urine Ketones 1+, Urine Blood Negative, Urine Nitrate Negative, Urine Bilirubin 2+ A, Urine Urobilinogen 0.2, Ur Leukocyte Esterase Trace, Urine RBC 3-5, Urine WBC 3- 5, Ur Squamous Epith Cells None, Urine Bacteria Trace I & O for Last 24 hours: Intake & Output 01/06/24 01/07/24 01/08/24 01/09/24 23:59 23:59 23:59 23:59 Weight 65.771 kg Intake & Output 11/17/23 11/18/23 11/19/23 11/20/23 23:59 23:59 23:59 23:59 Weight 90.718 kg Constitutional Constitutional: moderate distress, obese and cooperative *Routine HEENT Exam Head: Present normocephalic and atraumatic Eye: Present EOMI, PERRL and normal accommodation ENT: Present mucous membranes moist *Routine Neck Exam Neck: Present supple, full ROM and trachea midline *Routine Respiratory Exam Respiratory: Present CTA bilaterally and normal respiratory effort; Absent respiratory distress *Routine Cardiovascular Exam Cardiovascular: Present RRR, Normal S1 and Normal S2 *Routine Abdominal Exam Abdominal: Present soft and normoactive bowel sounds; Absent tenderness *Routine Rectal Exam Rectal:: deferred *Routine Genitalia Exam Genitalia:: deferred *Routine Extremities Exam Extremities: Present full ROM and pulses intact; Absent cyanosis, clubbing or edema *Routine Skin Exam Skin: Present erythema, warm and wounds *Routine Neurological Exam Neurological: Present alert, normal reflexes, moving all extremities and normal speech Routine Psychiatric Exam Psychiatric: Present unable to assess H&P: Result Imaging and Cardiology CT scan - abdomen: Status: image reviewed by me, Preliminary report and final report CT scan - chest: Status: image reviewed by me, Preliminary report and final report CT scan - head: Status: image reviewed by me, Preliminary report and final report Assessment and Plan *Assessment and plan (1) Metabolic acidosis: Status: Acute Category: Medical Code(s): E87.20 - Acidosis, unspecified (2) Acute hypoxemic respiratory failure: Status: Acute Category: Medical Code(s): J96.01 - Acute respiratory failure with hypoxia (3) KRISTIE (acute kidney injury): Status: Acute Category: Medical Code(s): N17.9 - Acute kidney failure, unspecified (4) Acute hypokalemia: Status: Acute Category: Medical Code(s): E87.6 - Hypokalemia (5) Acidosis, lactic: Status: Acute Category: Medical Code(s): E87.20 - Acidosis, unspecified (6) Diabetes mellitus, type 2: Status: Acute Qualifiers: Diabetes mellitus city bailiff insulin use: without city bailiff use Diabetes mellitus complication status: with other specified complication Qualified Code(s): E11.69 - Type 2 diabetes mellitus with other specified complication Category: Medical Code(s): E11.9 - Type 2 diabetes mellitus without complications Plan 73-year-old female with PMHx of insulin-dependent diabetes, resident from [facility] brought in by EMS to the emergency department with concern for SOB. EMS reports that patient was found on 2 L nasal cannula saturating only in the 70s, they placed her on 4 L and she improved up to the 90s. She was tachycardic and round with rates in the 110s, blood pressure with systolic of 110. on arrival patient workup with leukocytosis 18,000 with neutrophilia. Her VBG is concerning for metabolic acidosis pH 7.21, CO2 low at 26, bicarb low at 10, lactate 10.4. Patient's potassium on chemistry 3.0, this was repleted with IV potassium. KRISTIE with creatinine 1.7 up from normal baseline. Patient given fluids for this. Initial troponin 0.04, repeat troponin 0.05. LFTs nonactionable. Lipase negative. Urinalysis without concern for UTI. CT of the chest abdomen and pelvis without acute concern for any abnormalities. CT head without intracranial hemorrhage or intracranial abnormality. Findings discussed with ED. Agreed for admission: -acute hypoxemic respiratory failure. acute toxic metabolic acidosis: KRISTIE: presented also with hypokalemia and lactic acidosis: to rule out infections. Not clear sources of infections. Suspected metformin lactic acidosis Admit patient. Dispo med surg pancultures pending Vanco, Flagyl and cefepime given at ER. Will continue vanco until culture becomes available repeat and monitor lactic acid cont IV hydration monitor VS oer unit protocols repeat labs in the morning replace electrolytes per protocols cardiac monitoring avoid nephrtoxic medication UA negative Hx of NIDDM: on metformin at home. Held accucheck before meals sliding scale Heparin for dvt ppx. On protonix Full code
[2024-01-09] MEDS: HEPARIN SODIUM 5,000 UNIT/ML VIAL 5000 UNIT SQ (22:09)
[2024-01-09 22:21] LABS: Troponin I 0.09 ng/ml (0.00-0.034)
[2024-01-09 22:25] LABS: POC Glucose,Bedside 149 (70-110)
[2024-01-10] VITALS (8 sets, daily range): BP systolic 94–133; BP diastolic 48–69; PULSE 66–100; RESP 16–22; TEMP 36.4–37.3; O2SAT 94–100; BMI 24.8
[2024-01-10] LABS: Reflex Lactic (2 hrs) Add Lactic Reflex
[2024-01-10] MEDS: 0.9 % SODIUM CHLORIDE 1000ML 1,000 ML 50 ML IV ×2 (01:17→15:08)
[2024-01-10 02:07] LABS: Lactic Acid Follow up (RFLX 2) 2.5 mmol/L (0.7-2.1)
[2024-01-10] MEDS: KCl 20mEq/100ml 100 ML 50 MEQ IV (02:35)
[2024-01-10] MEDS: ONDANSETRON 4MG/2ML VIAL 4 MG IV (05:21)
--- NOTE | 2024-01-10 06:56 | PC.NURSE ---
pt admitted for hypoxic resp heart failure, on 3l/nc, hypokalemia 3.0. potassium runs x3 given, lactic acid repeat 5.0 then 2.5. pt confused, alert to name only
[2024-01-10 07:04] LABS: Basophils % 0.4 % (0.1-2.0); Eosinophils % 0.2 % (0.1-12.0); Lymphocytes # 2.6 K/mm3 (0.7-4.5); Lymphocytes % 23.2 % (10-50); Mean Corpuscular HGB Conc 32.4 g/dL (31.8-35.4); Mean Corpuscular Volume 95.8 fl (81-99); Mean Platelet Volume 8.5 fl (7.4-10.4); Monocytes # 0.6 K/mm3 (0.1-1.0); Monocytes % 4.9 % (1.7-9.3); Neutrophils % 71.2 % (37.0-80.0); Platelet Count 298 K/mm3 (142-424); Red Blood Count 3.45 M/mm3 (4.20-5.40); Red Cell Distribution Width 18.5 % (11.5-17.5); White Blood Count 11.2 K/mm3 (4.8-10.8)
[2024-01-10 07:10] LABS: Chloride 110 mmol/L (98-107)
[2024-01-10 07:11] LABS: Potassium 3.2 mmoL/L (3.5-5.1); Sodium 134 mmol/L (136-145)
[2024-01-10 07:14] LABS: Anion Gap 10.2 mEq/L (5-15); Calcium 7.7 mg/dl (8.4-10.2); Carbon Dioxide 17 mmol/L (22.0-30.0); Glucose 110 mg/dl (74-100)
[2024-01-10 07:19] LABS: Blood Urea Nitrogen 21 mg/dl (7-17); Creatinine Clearance Estimated 44 mL/min (50-200); Estimated Glomerular Filt Rate 44 ml/min (>60); GFR (African American) 53 ML/MIN (>60)
[2024-01-10 07:31] LABS: Hemoglobin 10.7 g/dL (12.2-16.2)
--- NOTE | 2024-01-10 08:19 | P.CONPHA_ITS ---
Pharmacy Consult Date: 01/10/24 Time: 08:21 Referring provider: DR MCCLURE Reason for Consult:: VANCOMYCIN DOSING CONSULT Allergies Allergy/AdvReac Type Severity Reaction Status Date / Time Penicillins Allergy Mild Verified 09/02/23 20:59 Home Medications Medication Instructions Recorded Confirmed Type buspirone 10 mg tablet 10 mg PO BID 11/20/23 01/10/24 History famotidine 20 mg tablet 20 mg PO BID 11/20/23 01/10/24 History metformin 500 mg tablet 500 mg PO BID 11/20/23 01/10/24 History sertraline 100 mg tablet 100 mg PO DAILY 11/20/23 01/10/24 History acetaminophen 325 mg tablet 650 mg PO DAILY 01/10/24 01/10/24 History (Tylenol) aspirin 81 mg chewable tablet 81 mg PO DAILY 01/10/24 01/10/24 History docusate sodium 100 mg capsule 200 mg PO HS 01/10/24 01/10/24 History ergocalciferol (vitamin D2) 1,250 1,250 mcg PO WEEKLY 01/10/24 01/10/24 History mcg (50,000 unit) capsule (Vitamin D2) hydroxyzine HCl 50 mg tablet 50 mg PO HS 01/10/24 01/10/24 History ibuprofen 200 mg tablet 200 mg PO Q8 PRN Pain 01/10/24 01/10/24 History insulin glargine 100 unit/mL (3 28 unit SQ HS 01/10/24 01/10/24 History mL) subcutaneous pen (Basaglar KwikPen U-100 Insulin) lorazepam 0.5 mg tablet 0.5 mg PO BID 01/10/24 01/10/24 History nystatin 100,000 unit/gram topical 1 applic topical BID 01/10/24 01/10/24 History powder New Prescriptions to Start Prescriptions: Height: 1.65 m Weight: 67.585 kg Laboratory Results:: Laboratory Results - last 24 hr 01/09/24 14:27: Urine Color Yellow, Urine Appearance Clear, Urine pH 6.0, Ur Specific [place] 1.020, Urine Protein Negative, Urine Glucose (UA) Negative, Urine Ketones Negative, Urine Blood Negative, Urine Nitrate Negative, Urine Bilirubin 1+ A, Urine Urobilinogen 0.2, Ur Leukocyte Esterase Negative, Urine RBC None, Urine WBC Occasional, Ur Squamous Epith Cells Occasional, Urine Bacteria Trace, Urine Yeast Occasional 01/09/24 15:00: WBC 17.9 H, RBC 4.50, Hgb 14.1, Hct 44.3, MCV 98.5, MCH 31.3 H, MCHC 31.7 L, RDW 18.3 H, Plt Count 423, MPV 8.8, Neut % (Auto) 89.6 H, Lymph % (Auto) 5.9 L, [place] % (Auto) 3.4, Eos % (Auto) 0.8, Baso % (Auto) 0.2, Neut # (Auto) 16.0 H, Lymph # (Auto) 1.1, [place] # (Auto) 0.6, Eos # (Auto) 0.1, Baso # (Auto) 0.0, Total Counted 100, Neutrophils % (Manual) 87 H, Lymphocytes % (Manual) 10, Monocytes % (Manual) 3, Platelet Estimate Normal, RBC Morphology Normal, Sodium 137, Potassium 3.0 L, Chloride 102, Carbon Dioxide 9 L*, Anion Gap 29.0 H, BUN 20 H, Creatinine 1.70 H, Estimated Creat Clear 30, Estimated GFR 29 L, Est GFR ( Amer) 36 L, Glucose 246 H, Lactate 9.1 H, Calcium 8.8, Total Bilirubin 0.8, AST 92 H, ALT 67, Alkaline Phosphatase 132 H, Troponin I 0.04 H, Total Protein 6.3, Albumin 3.7, Globulin 2.6, Albumin/Globulin Ratio 1.4, Lipase 112 01/09/24 15:06: VBG pH 7.21 L, VBG pCO2 26.9 L, VBG pO2 44.9 H, VBG HCO3 10.4 L, VBG Total CO2 11.3 L, VBG O2 Saturation 70.9 H, VBG Base Excess -17.5 L, VBG Lactic Acid 10.4 H 01/09/24 17:05: Troponin I 0.05 H 01/09/24 21:45: Lactate 5.0 H, Troponin I 0.09 H 01/09/24 22:06: POC Glucose 149 H 01/10/24 01:55: Lactate 2.5 H 01/10/24 06:35: WBC 11.2 H D, RBC 3.45 L, Hgb 10.7 L D, Hct 33.0 L, MCV 95.8, MCH 31.0, MCHC 32.4, RDW 18.5 H, Plt Count 298 D, MPV 8.5, Neut % (Auto) 71.2, Lymph % (Auto) 23.2, [place] % (Auto) 4.9, Eos % (Auto) 0.2, Baso % (Auto) 0.4, Neut # (Auto) 8.0 H, Lymph # (Auto) 2.6, [place] # (Auto) 0.6, Eos # (Auto) 0.0, Baso # (Auto) 0.0, Sodium 134 L, Potassium 3.2 L, Chloride 110 H, Carbon Dioxide 17 L, Anion Gap 10.2, BUN 21 H, Creatinine 1.20 H D, Estimated Creat Clear 44, Estimated GFR 44 L, Est GFR ( Amer) 53 L D, Glucose 110 H D, Calcium 7.7 L Medical History: Medical History (Updated 01/10/24 @ 02:00 by Woody Castaneda APRN) Diabetes mellitus, type 2 Assessment and Plan Assessment and plan all Dx Assessment and Plan for all problems:: Pharmacokinetic dosing service Objective: Age: 73 yo Serum creatinine: 1.2 mg/dL Height: 65.0 Inches Weight (kg): 67.585 Diagnosis: SUSPECTED INFECTION/SEPSIS Assessment: IBW (kg): 57.00 Dosing wt(kg): 67.585 Estimated Creatinine clearance (ml/min): 37.0 CRCL method: Cockcroft and Gault using ibw(default). Drug selected: Vancomycin Loading dose (mg): 1250 MG Vd (liters): 50.7 (factor used: 0.75 L/kg) Aldo (hr-1): 0.035 Half life (hrs): 19.80 CLvanco=?? 1.775 L/hr Recommended dose: 1000 mg Interval: 24 hrs Infusion time (hrs): 2.0 Predicted peak (mcg/mL): 33.5 Predicted trough (mcg/mL): 15.51 Total body weight is being used for vancomycin dosing. Recommendations: Give Vancomycin 1000 mg q 24 hrs with an expected Cpeak of 33.5 mcg/ml and an expected Ctrough of 15.51 mcg/ml TO START 01/10/24 AT 16:00, ONE TIME LOADING DOSE OF VANCOMYCIN 1250MG GIVEN IN THE ED 01/09/24 AT 16:42. AUC 0-24 /BELGICA Data: BELGICA 0.5 mcg/mL:?? AUC/BELGICA:? 1126.8 [place] 1.0 mcg/mL:?? AUC/BELGICA:? 563.4 --------- [place] 1.5 mcg/mL:?? AUC/BELGICA:? 375.6 [place] 2.0 mcg/mL:?? AUC/BELGICA:? 281.7 Thank you for the consult
--- NOTE | 2024-01-10 08:33 | HMH.PHAINT1 ---
Pharmacy Intervention Comments: MEDICATION RECONCILIATION COMPLETE USING MAR FROM [facility].
[2024-01-10] MEDS: HEPARIN SODIUM 5,000 UNIT/ML VIAL 5000 UNIT SQ ×2 (09:05→21:26)
--- NOTE | 2024-01-10 12:11 | HMH.PTEV ---
Physical Therapy Evaluation Rehab PT IP Evaluation Start: 01/10/24 09:30 Freq: ONCE Status: Active Protocol: Document 01/10/24 11:34 KEYUR (Rec: 01/10/24 11:44 KEYUR Desktop) Subjective/History History History Per History and Physical: This is a 73-year-old female with PMHx of non insulin- dependent diabetes, resident from [facility] brought in by EMS to the emergency department with concern for SOB. Patient is poor historian. Data collected form EMS and ER documentation. Per EMS they was called for concerns of shortness of breath, they also report that the facility told them she was a little more confused than her baseline. Reportedly patient usually wears 2 L nasal cannula, she states she has been feeling short of breath for a couple days. She denies pain elsewhere. She developed motion sickness with the ambulance and has had 1 episode of emesis here but has not been having abdominal pain, nausea, vomiting, or diarrhea. She denies injuries . EMS reports that patient was found on 2 L nasal cannula saturating only in the 70s, they placed her on 4 L and she improved up to the 90s. She was tachycardic and round with rates in the 110s, blood pressure with systolic of 110. Admitted for treatment and management Subjective Subjective PLOF: Pt is poor historian. Pt agreed she lived at [facility] and used a cane to walk. Pt unable to provide further PLOF details. Confirm history with Case management. New diagnosis of cancer in past 12 No months? Rehab PT IP Eval Objective Appearance Patient Behavior Cooperative,Confused Patient Orientation Person,Birthday Difficulty following instructions none Speech Pattern Stuttering,Difficulty Finding Words Ambulation Patient Able to Ambulate Yes Ambulation Observation IP General Gait Pattern Observation No Deviations/Normal Ambulation Distance (feet) 18 Ambulation Assistive Device Rolling Walker Ambulation Ability Supervision/Stand by,Contact Guard/Hand Hold Balance Ability to Arise Able, uses arms to help Sitting Balance Steady, safe Standing Balance Steady, wide stance Transfers Bed Transfer Ability Minimal x 1 (25% assist) Sit to Stand Bed Transfer Ability Contact Guard/Hand Hold MMT All Extremities PT MMT WFL Rehab PT IP prob,goals,plan Problems Date of Evaluation: 01/10/24 PT IP Problems Bed Mobility,Transfers,Gait, Balance,Self care,Safety Rehab Potential Rehab Potential Good Equipment Needs Assistive Devices Rolling / Wheeled Walker Plan PT Intervention Plan Bed Mobility,Transfers,Gait, Balance,Safety,Therapeutic Exercise Other Intervention Plan 1-2 times PT Plan Frequency Daily Duration LOS Discharge Goals Bed Transfer Ability Supervision/Stand by Sit to Stand Chair Transfer Ability Supervision/Stand by Ambulation Assistive Device Rolling Walker Ambulation Distance (feet) 50 Discharge Plan PT Discharge Plan At this time, pt is able to ambulate with CGA-SUP and RW. It is unknown if pt owns RW (d /t confusion) but PT recommending RW use for safety and energy conservation. Pt safe to D/C back to assisted living facility pending no further functional decline and when deemed medically necessary. Pt would benefit from skilled acute care physical therapy to address deficits and prevent functional decline. PT recommending services to address strength and endurance deficits. Eval Complexity Eval Charge Codes 36653 - Moderate Complexity PHYSICIAN CERTIFICATION: I certify the specified therapy services for Amy Montes are required, authorized, and reviewed every 30 days.
--- NOTE | 2024-01-10 12:52 | P.PN_ITS ---
Subjective *Date: 01/10/24 *Time: 12:52 Interval history: seen at bedside, she felt nauseated, otherwise denied Abdominal pain, chest pain, SOB, fever Exam Data for Last 24 hours Vital signs and Labs for Last 24 Hours: Temp Pulse Resp BP Pulse Ox O2 Del Method O2 Flow Rate 97.7 F 88 21 130/69 100 Room Air 3 01/10/24 11:35 01/10/24 11:35 01/10/24 11:35 01/10/24 11:35 01/10/24 11:35 01/10/24 11:35 01/10/24 07:00 Laboratory Results - last 24 hr 01/09/24 14:27: Urine Color Yellow, Urine Appearance Clear, Urine pH 6.0, Ur Specific [place] 1.020, Urine Protein Negative, Urine Glucose (UA) Negative, Urine Ketones Negative, Urine Blood Negative, Urine Nitrate Negative, Urine Bilirubin 1+ A, Urine Urobilinogen 0.2, Ur Leukocyte Esterase Negative, Urine RBC None, Urine WBC Occasional, Ur Squamous Epith Cells Occasional, Urine Bacteria Trace, Urine Yeast Occasional 01/09/24 15:00: WBC 17.9 H, RBC 4.50, Hgb 14.1, Hct 44.3, MCV 98.5, MCH 31.3 H, MCHC 31.7 L, RDW 18.3 H, Plt Count 423, MPV 8.8, Neut % (Auto) 89.6 H, Lymph % (Auto) 5.9 L, [place] % (Auto) 3.4, Eos % (Auto) 0.8, Baso % (Auto) 0.2, Neut # (Auto) 16.0 H, Lymph # (Auto) 1.1, [place] # (Auto) 0.6, Eos # (Auto) 0.1, Baso # (Auto) 0.0, Total Counted 100, Neutrophils % (Manual) 87 H, Lymphocytes % (Manual) 10, Monocytes % (Manual) 3, Platelet Estimate Normal, RBC Morphology Normal, Sodium 137, Potassium 3.0 L, Chloride 102, Carbon Dioxide 9 L*, Anion Gap 29.0 H, BUN 20 H, Creatinine 1.70 H, Estimated Creat Clear 30, Estimated GFR 29 L, Est GFR ( Amer) 36 L, Glucose 246 H, Lactate 9.1 H, Calcium 8.8, Total Bilirubin 0.8, AST 92 H, ALT 67, Alkaline Phosphatase 132 H, Troponin I 0.04 H, Total Protein 6.3, Albumin 3.7, Globulin 2.6, Albumin/Globulin Ratio 1.4, Lipase 112 01/09/24 15:06: VBG pH 7.21 L, VBG pCO2 26.9 L, VBG pO2 44.9 H, VBG HCO3 10.4 L, VBG Total CO2 11.3 L, VBG O2 Saturation 70.9 H, VBG Base Excess -17.5 L, VBG Lactic Acid 10.4 H 01/09/24 17:05: Troponin I 0.05 H 01/09/24 21:45: Lactate 5.0 H, Troponin I 0.09 H 01/09/24 22:06: POC Glucose 149 H 01/10/24 01:55: Lactate 2.5 H 01/10/24 06:35: WBC 11.2 H D, RBC 3.45 L, Hgb 10.7 L D, Hct 33.0 L, MCV 95.8, MCH 31.0, MCHC 32.4, RDW 18.5 H, Plt Count 298 D, MPV 8.5, Neut % (Auto) 71.2, Lymph % (Auto) 23.2, [place] % (Auto) 4.9, Eos % (Auto) 0.2, Baso % (Auto) 0.4, Neut # (Auto) 8.0 H, Lymph # (Auto) 2.6, [place] # (Auto) 0.6, Eos # (Auto) 0.0, Baso # (Auto) 0.0, Sodium 134 L, Potassium 3.2 L, Chloride 110 H, Carbon Dioxide 17 L, Anion Gap 10.2, BUN 21 H, Creatinine 1.20 H D, Estimated Creat Clear 44, Estimated GFR 44 L, Est GFR ( Amer) 53 L D, Glucose 110 H D, Calcium 7.7 L I & O for Last 24 hours: Intake & Output 01/07/24 01/08/24 01/09/24 01/10/24 23:59 23:59 23:59 23:59 Intake Total 1999 Output Total 0 / 0 Balance 1999 Weight 67.585 kg 67.585 kg Constitutional Constitutional: no acute distress *Routine HEENT Exam Head: Present normocephalic Eye: Present EOMI and PERRL ENT: Present mucous membranes moist *Routine Neck Exam Neck: Present supple; Absent lymphadenopathy *Routine Respiratory Exam Respiratory: Present CTA bilaterally *Routine Cardiovascular Exam Cardiovascular: Present RRR *Routine Abdominal Exam Abdominal: Present soft and normoactive bowel sounds; Absent tenderness *Routine Extremities Exam Extremities: Absent cyanosis, clubbing or edema *Routine Skin Exam Skin: Present warm; Absent rash *Routine Neurological Exam Neurological: Present alert and oriented X3 Assessment and Plan *Assessment and plan (1) Metabolic acidosis: Status: Acute Category: Medical Code(s): E87.20 - Acidosis, unspecified (2) Acute hypoxemic respiratory failure: Status: Acute Category: Medical Code(s): J96.01 - Acute respiratory failure with hypoxia (3) KRISTIE (acute kidney injury): Status: Acute Category: Medical Code(s): N17.9 - Acute kidney failure, unspecified (4) Acute hypokalemia: Status: Acute Category: Medical Code(s): E87.6 - Hypokalemia (5) Acidosis, lactic: Status: Acute Category: Medical Code(s): E87.20 - Acidosis, unspecified (6) Diabetes mellitus, type 2: Status: Acute Qualifiers: Diabetes mellitus fci insulin use: without rodent exterminator use Diabetes mellitus complication status: with other specified complication Qualified Code(s): E11.69 - Type 2 diabetes mellitus with other specified complication Category: Medical Code(s): E11.9 - Type 2 diabetes mellitus without complications Plan 73-year-old female with PMHx of insulin-dependent diabetes, resident from [facility] brought in by EMS to the emergency department with concern for SOB. EMS reports that patient was found on 2 L nasal cannula saturating only in the 70s, they placed her on 4 L and she improved up to the 90s. She was tachycardic and round with rates in the 110s, blood pressure with systolic of 110. on arrival patient workup with leukocytosis 18,000 with neutrophilia. Her VBG is concerning for metabolic acidosis pH 7.21, CO2 low at 26, bicarb low at 10, lactate 10.4. Patient's potassium on chemistry 3.0, this was repleted with IV potassium. KRISTIE with creatinine 1.7 up from normal baseline. Patient given fluids for this. Initial troponin 0.04, repeat troponin 0.05. LFTs nonactionable. Lipase negative. Urinalysis without concern for UTI. CT of the chest abdomen and pelvis without acute concern for any abnormalities. CT head without intracranial hemorrhage or intracranial abnormality. Findings discussed with ED. Agreed for admission: Acute hypoxemic respiratory failure. Acute metabolic acidosis: likely dehydration, hypoxia KRISTIE: presented also with hypokalemia and lactic acidosis: to rule out infections. Not clear sources of infections. Suspected metformin lactic acidosis pancultures pending Vanco, Flagyl and cefepime Will continue Cr is improving monitor lactic acid - improving cont IV hydration monitor VS oer unit protocols repeat labs in the morning replace electrolytes per protocols cardiac monitoring avoid nephrtoxic medication UA negative Hx of NIDDM: on metformin at home. Held accucheck before meals sliding scale Heparin for dvt ppx. On protonix Full code contnue IV fluids, check BNP, await cultures, monitor BMP, Lactate
[2024-01-10] MEDS: CEFEPIME HCL 2 GM in 0.9 % SODIUM CHLORIDE 100 ML IV (15:07)
[2024-01-10] MEDS: ASPIRIN 81MG CHEWABLE TABLET 81 MG PO (15:08)
[2024-01-10] MEDS: SERTRALINE 100MG TABLET 100 MG PO (15:08)
[2024-01-10] MEDS: METRONIDAZ/SOD CHL 500 MG/100 ML PIGGYBACK 100 MG IV ×2 (15:39→22:53)
[2024-01-10] MEDS: VANCOMYCIN HCL 1,000 MG in 0.9 % SODIUM CHLORIDE 250 ML 125 MG IV (17:20)
[2024-01-10 19:39] LABS: POC Glucose,Bedside 97 (70-110)
[2024-01-10] MEDS: FAMOTIDINE 20MG TABLET 20 MG PO (21:27)
[2024-01-10] MEDS: DOCUSATE SODIUM 100 MG CAPSULE 200 MG PO (21:27)
[2024-01-10] MEDS: LORazepam 0.5MG TABLET 0.5 MG PO (21:27)
[2024-01-10] MEDS: hydrOXYzine pamoate 25MG CAPSULE 50 MG PO (21:27)
[2024-01-10] MEDS: NYSTATIN TOPICAL POWDER 30GM TP (21:27)
[2024-01-10] MEDS: BUSPIRONE HCL 10 MG TABLET PO (21:27)
[2024-01-11] VITALS (9 sets, daily range): BP systolic 104–129; BP diastolic 49–83; PULSE 80–110; RESP 16–24; TEMP 36.4–36.7; O2SAT 96–100; BMI 25.5
[2024-01-11] MEDS: CEFEPIME HCL 2 GM in 0.9 % SODIUM CHLORIDE 100 ML IV ×2 (02:37→14:05)
--- NOTE | 2024-01-11 05:37 | PC.NURSE ---
Pt alert to name and birthday. No complaints throughout shift. Pt has rested well tonight. Ambulated to the restroom, both continent and incontinent. Antibiotics and NS infused per orders. Pt does seem weak when ambulating with assistance. Bed alarm on. Call light in reach.
[2024-01-11 06:32] LABS: POC Glucose,Bedside 92 (70-110)
[2024-01-11] MEDS: METRONIDAZ/SOD CHL 500 MG/100 ML PIGGYBACK 100 MG IV ×3 (06:40→23:37)
[2024-01-11 07:25] LABS: Chloride 110 mmol/L (98-107); Sodium 133 mmol/L (136-145)
[2024-01-11 07:28] LABS: Anion Gap 4.8 mEq/L (5-15); Blood Urea Nitrogen 15 mg/dl (7-17); Carbon Dioxide 21 mmol/L (22.0-30.0); Creatinine Clearance Estimated 54 mL/min (50-200); Estimated Glomerular Filt Rate 70 ml/min (>60); GFR (African American) 85 ML/MIN (>60); Glucose 90 mg/dl (74-100)
[2024-01-11 07:31] LABS: Potassium 2.8 mmoL/L (3.5-5.1)
[2024-01-11] MEDS: METFORMIN 500MG TABLET 500 MG PO ×2 (08:25→17:19)
[2024-01-11] MEDS: LORazepam 0.5MG TABLET 0.5 MG PO ×2 (08:25→20:37)
[2024-01-11] MEDS: SERTRALINE 100MG TABLET 100 MG PO (08:26)
[2024-01-11] MEDS: BUSPIRONE HCL 10 MG TABLET PO ×2 (08:26→20:38)
[2024-01-11] MEDS: ASPIRIN 81MG CHEWABLE TABLET 81 MG PO (08:26)
[2024-01-11] MEDS: HEPARIN SODIUM 5,000 UNIT/ML VIAL 5000 UNIT SQ ×2 (08:26→20:38)
[2024-01-11] MEDS: NYSTATIN TOPICAL POWDER 30GM TP ×2 (08:26→20:37)
[2024-01-11] MEDS: POTASSIUM CHLORIDE 20MEQ TAB 40 MEQ PO (09:04)
[2024-01-11] MEDS: KCl 20mEq/100ml 100 ML 50 MEQ IV ×2 (09:07→11:15)
[2024-01-11] MEDS: 0.9 % SODIUM CHLORIDE 1000ML 1,000 ML 50 ML IV (09:11)
[2024-01-11 09:23] LABS: Basophils # 0.1 K/mm3 (0-0.2); Eosinophils # 0.1 K/mm3 (0.0-0.4); Hematocrit 30.3 % (37.0-47.0); Hemoglobin 9.8 g/dL (12.2-16.2); Lymphocytes # 2.1 K/mm3 (0.7-4.5); Lymphocytes % 36.2 % (10-50); Mean Corpuscular HGB Conc 32.2 g/dL (31.8-35.4); Mean Corpuscular Hemoglobin 31.3 pg (27.0-31.2); Mean Corpuscular Volume 97.3 fl (81-99); Mean Platelet Volume 7.2 fl (7.4-10.4); Monocytes # 0.3 K/mm3 (0.1-1.0); Monocytes % 4.8 % (1.7-9.3); Neutrophils # 3.3 K/mm3 (1.8-7.8); Neutrophils % 57.1 % (37.0-80.0); Platelet Count 271 K/mm3 (142-424); Red Blood Count 3.12 M/mm3 (4.20-5.40); Red Cell Distribution Width 18.6 % (11.5-17.5); White Blood Count 5.8 K/mm3 (4.8-10.8)
--- NOTE | 2024-01-11 14:08 | EXP.PN ---
Subjective *Date: 01/11/24 *Time: 14:08 Interval history: no acute events overnight, patient not eating well, seen at bedside, denied Abdominal pain, chest pain, SOB, fever Exam Data for Last 24 hours Vital signs and Labs for Last 24 Hours: Temp Pulse Resp BP Pulse Ox O2 Del Method O2 Flow Rate 97.6 F 110 H 22 129/68 98 Room Air 3.5 01/11/24 12:00 01/11/24 12:00 01/11/24 12:00 01/11/24 12:00 01/11/24 12:00 01/11/24 13:00 01/11/24 00:00 Laboratory Results - last 24 hr 01/10/24 19:32: POC Glucose 97 01/11/24 06:25: POC Glucose 92 01/11/24 06:50: WBC 5.8 D, RBC 3.12 L, Hgb 9.8 L, Hct 30.3 L, MCV 97.3, MCH 31.3 H, MCHC 32.2, RDW 18.6 H, Plt Count 271, MPV 7.2 L, Neut % (Auto) 57.1, Lymph % (Auto) 36.2, [place] % (Auto) 4.8, Eos % (Auto) 1.0, Baso % (Auto) 1.0, Neut # (Auto) 3.3, Lymph # (Auto) 2.1, [place] # (Auto) 0.3, Eos # (Auto) 0.1, Baso # (Auto) 0.1, Sodium 133 L, Potassium 2.8 L*, Chloride 110 H, Carbon Dioxide 21 L, Anion Gap 4.8 L, BUN 15 D, Creatinine 0.80 D, Estimated Creat Clear 54, Estimated GFR 70, Est GFR ( Amer) 85 D, Glucose 90, Calcium 7.0 L I & O for Last 24 hours: Intake & Output 01/08/24 01/09/24 01/10/24 01/11/24 23:59 23:59 23:59 23:59 Intake Total 2540 / 2540 968 / 968 Output Total 0 / 0 0 / 0 Balance 2540 / 2540 968 / 968 Weight 67.585 kg 67.585 kg 69.626 kg Constitutional Constitutional: no acute distress *Routine HEENT Exam Head: Present normocephalic Eye: Present EOMI and PERRL ENT: Present mucous membranes moist *Routine Neck Exam Neck: Present supple; Absent lymphadenopathy *Routine Respiratory Exam Respiratory: Present CTA bilaterally *Routine Cardiovascular Exam Cardiovascular: Present RRR *Routine Abdominal Exam Abdominal: Present soft and normoactive bowel sounds; Absent tenderness *Routine Extremities Exam Extremities: Absent cyanosis, clubbing or edema *Routine Skin Exam Skin: Present warm; Absent rash *Routine Neurological Exam Neurological: Present alert and oriented X3 Assessment and Plan *Assessment and plan (1) Metabolic acidosis: Status: Acute Category: Medical Code(s): E87.20 - Acidosis, unspecified (2) Acute hypoxemic respiratory failure: Status: Acute Category: Medical Code(s): J96.01 - Acute respiratory failure with hypoxia (3) KRISTIE (acute kidney injury): Status: Acute Category: Medical Code(s): N17.9 - Acute kidney failure, unspecified (4) Acute hypokalemia: Status: Acute Category: Medical Code(s): E87.6 - Hypokalemia (5) Acidosis, lactic: Status: Acute Category: Medical Code(s): E87.20 - Acidosis, unspecified (6) Diabetes mellitus, type 2: Status: Acute Qualifiers: Diabetes mellitus longwall shearer operator insulin use: without longwall shearer operator use Diabetes mellitus complication status: with other specified complication Qualified Code(s): E11.69 - Type 2 diabetes mellitus with other specified complication Category: Medical Code(s): E11.9 - Type 2 diabetes mellitus without complications Plan 73-year-old female with PMHx of insulin-dependent diabetes, resident from [facility] brought in by EMS to the emergency department with concern for SOB. EMS reports that patient was found on 2 L nasal cannula saturating only in the 70s, they placed her on 4 L and she improved up to the 90s. She was tachycardic and round with rates in the 110s, blood pressure with systolic of 110. on arrival patient workup with leukocytosis 18,000 with neutrophilia. Her VBG is concerning for metabolic acidosis pH 7.21, CO2 low at 26, bicarb low at 10, lactate 10.4. Patient's potassium on chemistry 3.0, this was repleted with IV potassium. KRISTIE with creatinine 1.7 up from normal baseline. Patient given fluids for this. Initial troponin 0.04, repeat troponin 0.05. LFTs nonactionable. Lipase negative. Urinalysis without concern for UTI. CT of the chest abdomen and pelvis without acute concern for any abnormalities. CT head without intracranial hemorrhage or intracranial abnormality. Findings discussed with ED. Agreed for admission: Acute hypoxemic respiratory failure. Improved Acute metabolic acidosis: likely dehydration, hypoxia KRISTIE: presented also with hypokalemia and lactic acidosis:-Resolved to rule out infections. Not clear sources of infections. Suspected metformin lactic acidosis pancultures pending Vanco, Flagyl and cefepime Will continue to complete total 3 days of IV antibiotics Cr is improving monitor lactic acid - improving discontinue IV fluids, encourage oral hydration repeat labs in the morning replace electrolytes per protocols cardiac monitoring avoid nephrtoxic medication UA negative Hx of NIDDM: on metformin at home. Held accucheck before meals sliding scale Heparin for dvt ppx. On protonix Full code Monitor and replace potassium, likely discharge tomorrow, consult PT/OT
[2024-01-11] MEDS: VANCOMYCIN HCL 1,000 MG in 0.9 % SODIUM CHLORIDE 250 ML 125 MG IV (15:53)
--- NOTE | 2024-01-11 18:37 | PC.NURSE ---
no acute changes since previous assessment. ambulating in room with rolling walker and standby assist. tolerating diet well. pt denies n/v this shift. still tolerating room air well.
[2024-01-11] MEDS: FAMOTIDINE 20MG TABLET 20 MG PO (20:37)
[2024-01-11] MEDS: hydrOXYzine pamoate 25MG CAPSULE 50 MG PO (20:37)
[2024-01-11] MEDS: DOCUSATE SODIUM 100 MG CAPSULE 200 MG PO (20:38)
[2024-01-12] VITALS (7 sets, daily range): BP systolic 102–162; BP diastolic 40–94; PULSE 80–105; RESP 17–21; TEMP 36.4–37.4; O2SAT 92–100; BMI 25.0
[2024-01-12 02:44] LABS: POC Glucose,Bedside 102 (70-110)
[2024-01-12] MEDS: CEFEPIME HCL 2 GM in 0.9 % SODIUM CHLORIDE 100 ML IV (03:10)
[2024-01-12] MEDS: ONDANSETRON 4MG/2ML VIAL 4 MG IV ×2 (03:42→19:51)
--- NOTE | 2024-01-12 04:38 | PC.NURSE ---
Alert to name and birthday. Ambulates to the restroom with standby assist using walker. Pt became nausea one time, treated per nov. No other complaints from the patient. Remains on room air, O2 sat >90%. Call light in reach. Bed alarm on.
[2024-01-12] MEDS: METRONIDAZ/SOD CHL 500 MG/100 ML PIGGYBACK 100 MG IV (06:44)
[2024-01-12 07:01] LABS: Basophils % 0.6 % (0.1-2.0); Eosinophils # 0.1 K/mm3 (0.0-0.4); Hematocrit 29.3 % (37.0-47.0); Hemoglobin 9.6 g/dL (12.2-16.2); Lymphocytes % 36.5 % (10-50); Mean Corpuscular HGB Conc 32.9 g/dL (31.8-35.4); Mean Corpuscular Hemoglobin 31.2 pg (27.0-31.2); Mean Corpuscular Volume 95.1 fl (81-99); Monocytes # 0.3 K/mm3 (0.1-1.0); Neutrophils # 3.1 K/mm3 (1.8-7.8); Neutrophils % 56.9 % (37.0-80.0); Platelet Count 276 K/mm3 (142-424); Red Blood Count 3.08 M/mm3 (4.20-5.40); Red Cell Distribution Width 18.7 % (11.5-17.5); White Blood Count 5.5 K/mm3 (4.8-10.8)
[2024-01-12 07:09] LABS: Chloride 112 mmol/L (98-107); Potassium 3.3 mmoL/L (3.5-5.1); Sodium 136 mmol/L (136-145)
[2024-01-12 07:12] LABS: Anion Gap 8.3 mEq/L (5-15); Blood Urea Nitrogen 10 mg/dl (7-17); Carbon Dioxide 19 mmol/L (22.0-30.0); Creatinine Clearance Estimated 53 mL/min (50-200); Estimated Glomerular Filt Rate 82 ml/min (>60); GFR (African American) 99 ML/MIN (>60); Glucose 110 mg/dl (74-100)
[2024-01-12] MEDS: ASPIRIN 81MG CHEWABLE TABLET 81 MG PO (09:02)
[2024-01-12] MEDS: SERTRALINE 100MG TABLET 100 MG PO (09:02)
[2024-01-12] MEDS: METFORMIN 500MG TABLET 500 MG PO (09:02)
[2024-01-12] MEDS: 0.9 % SODIUM CHLORIDE 1000ML 1,000 ML 50 ML IV (09:03)
[2024-01-12] MEDS: BUSPIRONE HCL 10 MG TABLET PO ×2 (09:03→22:29)
[2024-01-12] MEDS: HEPARIN SODIUM 5,000 UNIT/ML VIAL 5000 UNIT SQ ×2 (09:03→22:28)
--- NOTE | 2024-01-12 09:03 | SW/DCPLANNER ---
Addendum entered by [facility] 02/13/24 14:22: I have arranged [employer] for this patient. Confirmation #[id number] Addendum entered by [facility] 02/13/24 13:44: Xochilt becerra/ Betsy stated that rolling walker will be delivered to patient's room. Addendum entered by [facility] 02/13/24 12:51: Patient information/order has been faxed to [facility] for a rolling walker. Addendum entered by [facility] 02/13/24 12:12: Patient was able to ambulate the length of the [place] with a rolling walker. Per MD patient is medically stable for discharge back to [facility]. Yodit and Rosario evaluated patient and stated that patient can return back today. I called and spoke mariam/ Collette at [facility]PS regarding situation of waiting for a state appointed Guardian. Collette stated that [facility] okay [facility]/ her returning while in process for Guardianship then she is fine w/ patient returning. I did call and confirm w/ Hedy Merino that we can discharge patient back to [facility] today. [facility] of discharge today. Addendum entered by [facility] 02/13/24 09:39: I spoke w/ Collette this AM: she was unable to attend scheduled meeting w/ Ed due to family emergency. Collette stated that she will be making contact w/ Ed today. Paperwork must be completed and signed by Ed prior to court date being scheduled. Addendum entered by [facility] 02/11/24 10:21: I was able to speak davi Muñoz at Ed Fabiola office and asked that she contact Collette becerra/ STEVEN ([phone]) regarding paperwork and court date. Addendum entered by [facility] 02/11/24 08:56: Per [facility]PS court date is still pending for this patient. Addendum entered by [facility] 02/10/24 09:25: Per Farida becerra[facility] the paperwork that was dropped off for Guardianship was not signed off by Ed Jackson: I have emailed Estuardo becerra/ STEVEN regarding situation. Addendum entered by [facility] 02/06/24 11:30: Court date is still pending for Guardianship. Addendum entered by [facility] 02/05/24 08:42: Collette becerra/ STEVEN stated that petition was filed for Guardianship on 02/02/2024. Addendum entered by [facility] 01/27/24 11:30: Collette becerra/ STEVEN stated that she does have a meeting scheduled w/ Guardianship regarding this patient on 01/30/24. Addendum entered by [facility] 01/22/24 14:45: Collette becerra/ STEVEN stated that patient does not have any friends/family in systems and process will start for a State Guardian. Addendum entered by [facility] 01/19/24 13:15: John stated that she will begin process for Guardianship today. Addendum entered by [facility] 01/19/24 09:01: John stated that she will be onsite today to evaluate patient. Addendum entered by [facility] 01/19/24 08:58: Assigned APS worker for this case is John Chavez [phone] : VM left at this time. Addendum entered by [facility] 01/15/24 13:15: ID# [id number] does meet criteria for investigation. Addendum entered by [facility] 01/15/24 08:34: [facility] did not accept ID# [id number]. I did make a new report ID# [id number]. Addendum entered by Blanca Anne RN 01/14/24 12:15: Left message for Sylvia Eid at [facility]. Addendum entered by Jewell Hoyt RN 01/14/24 09:42: Checked ID on line and spoke with [facility], case is still pending. Addendum entered by [facility] 01/13/24 15:38: I have contact [facility] due to ID# still in progress. [facility] stated they will contact the worker regarding case. Addendum entered by [facility] 01/13/24 09:00: ID# is still pending w/ [facility]. Addendum entered by [facility] 01/12/24 15:33: Due to patient altered mental status, decline, the need for placement and unable to make decisions I have reported this case to [facility] (ID#[id number]). Addendum entered by Erin Corona 01/12/24 11:45: At this time patient is more appropriate for placement vs returning to [facility]. I will follow up w/ PT/OT this afternoon regarding status. Patient is only alert and oriented to name and at this time as well. I will continue to follow up w/ MD, patient and [facility]. Original Note: This patient currently resides at [facility]: I have updated Rosario w/ [facility] that patient will return today.
[2024-01-12] MEDS: NYSTATIN TOPICAL POWDER 30GM TP ×2 (09:04→20:30)
[2024-01-12] MEDS: CALCIUM GLUC IN NACL, ISO-OSM 1 GM/50 ML BAG IV (09:08)
[2024-01-12] MEDS: LORazepam 0.5MG TABLET 0.5 MG PO ×2 (09:08→22:29)
[2024-01-12 09:36] LABS: Vancomycin,Trough 12.2 ug/mL (5.0-10.0)
--- NOTE | 2024-01-12 10:02 | HMH.OTEV ---
OT Inpatient Evaluation Rehab OT IP Evaluation Start: 01/11/24 14:12 Freq: ONCE Status: Active Protocol: Document 01/12/24 09:43 ARNALDO (Rec: 01/12/24 10:01 ARNALDO [id number]) Rehab OT IP Assessment Subjective History This is a 73-year-old female with PMHx of non insulin- dependent diabetes, resident from [facility] brought in by EMS to the emergency department with concern for SOB. Patient is poor historian. Data collected form EMS and ER documentation. Per EMS they was called for concerns of shortness of breath, they also report that the facility told them she was a little more confused than her baseline. Reportedly patient usually wears 2 L nasal cannula, she states she has been feeling short of breath for a couple days. She denies pain elsewhere. She developed motion sickness with the ambulance and has had 1 episode of emesis here but has not been having abdominal pain, nausea, vomiting, or diarrhea. She denies injuries . EMS reports that patient was found on 2 L nasal cannula saturating only in the 70s, they placed her on 4 L and she improved up to the 90s. She was tachycardic and round with rates in the 110s, blood pressure with systolic of 110. Admitted for treatment and management. Patient [facility] at [facility]. Independent with all ADLs and fx'l mobility prior to hospitalization. Subjective I didn't realize I had an accident. Patient incontinet of bowel and bladder mgt tr this date. Patient unaware of being incontient. Patient required Max A to complete brief changing. Patient required Mod A for LB drsg. Objective Patient Orientation Person,Time,Name,Age,Birthday, Year Right Upper Extremity Gross ROM WFL Left Upper Extremity Gross ROM WFL Bed Mobility bed mobility - supine/sit Assist Level Minimal x 1 (25% assist) Transfer Training Sit/Stand/Pivot Transfer Assist Level Moderate x 2 (50% assist) Chair Transfer Ability Moderate x 2 (50% assist) Chair Transfer Technique Sit to/from Ambulatory Chair Transfer Assistive Devices None Lower Body Dressing Ability Moderate Assistance Rehab OT IP prob,goals,plan Problems Date of Evaluation: 01/12/24 OT IP Problems Bed Mobility,Transfers,Balance ,Self care,Safety Rehab Potential Rehab Potential Good Equipment Needs Assistive Devices Rolling / Wheeled Walker Plan OT intervention Plan Bed Mobility,Transfers,Balance ,Self care,Safety,Therapeutic Exercise OT Plan Frequency Daily Duration LOS Discharge Goals Bed Mobility Ability Assistance x1 Sit to Stand Chair Transfer Ability Minimal x 2 (25% assist) Chair Transfer Ability Minimal x 2 (25% assist) Chair Transfer Technique Sit to/from Ambulatory Chair Transfer Assistive Devices Rolling Walker Discharge Plan OT Discharge Plan Recommend placement at this time. Patient required increase assistance amount of assistance for ADLs and fx'l mobility. Patient to continue skilled OT IP services here while at [facility]. Eval Complexity Eval Charge Codes 45701 - Low Complexity PHYSICIAN CERTIFICATION: I certify the specified therapy services for Amy Montes are required, authorized, and reviewed every 30 days.
--- NOTE | 2024-01-12 11:27 | DIET.NUTRFU ---
Patient is very confused, therapy recommended placement. Previously from [facility]. Meal intake on regular diet is fair, will add ensure daily to help with calorie/protein intake.
--- NOTE | 2024-01-12 17:14 | P.PN_ITS ---
Subjective *Date: 01/12/24 *Time: 17:14 Interval history: no acute events overnight, alert awake, seen at bedside, denied Abdominal pain, chest pain, SOB, fever, appears anxious but comfortable in bed Exam Data for Last 24 hours Vital signs and Labs for Last 24 Hours: Temp Pulse Resp BP Pulse Ox O2 Del Method O2 Flow Rate 98.0 F 96 H 19 129/80 100 Room Air 3.5 01/12/24 16:00 01/12/24 16:00 01/12/24 16:00 01/12/24 16:00 01/12/24 16:00 01/12/24 16:00 01/11/24 00:00 Laboratory Results - last 24 hr 01/11/24 17:18: POC Glucose 102 01/12/24 06:32: WBC 5.5, RBC 3.08 L, Hgb 9.6 L, Hct 29.3 L, MCV 95.1, MCH 31.2, MCHC 32.9, RDW 18.7 H, Plt Count 276, MPV 8.0, Neut % (Auto) 56.9, Lymph % (Auto) 36.5, [place] % (Auto) 5.0, Eos % (Auto) 1.0, Baso % (Auto) 0.6, Neut # (Auto) 3.1, Lymph # (Auto) 2.0, [place] # (Auto) 0.3, Eos # (Auto) 0.1, Baso # (Auto) 0.0, Sodium 136, Potassium 3.3 L, Chloride 112 H, Carbon Dioxide 19 L, Anion Gap 8.3, BUN 10 D, Creatinine 0.70, Estimated Creat Clear 53, Estimated GFR 82, Est GFR ( Amer) 99, Glucose 110 H D, Calcium 7.0 L 01/12/24 09:00: Vancomycin Trough 12.2 H I & O for Last 24 hours: Intake & Output 01/09/24 01/10/24 01/11/24 01/12/24 23:59 23:59 23:59 23:59 Intake Total 2540 / 2540 2109 1260 / 1260 Output Total 0 / 0 0 / 0 0 / 0 Balance 2540 / 2540 2109 / 2109 1260 / 1260 Weight 67.585 kg 67.585 kg 69.626 kg 68.067 kg Constitutional Constitutional: no acute distress *Routine HEENT Exam Head: Present normocephalic Eye: Present EOMI and PERRL ENT: Present mucous membranes moist *Routine Neck Exam Neck: Present supple; Absent lymphadenopathy *Routine Respiratory Exam Respiratory: Present CTA bilaterally *Routine Cardiovascular Exam Cardiovascular: Present RRR *Routine Abdominal Exam Abdominal: Present soft and normoactive bowel sounds; Absent tenderness *Routine Extremities Exam Extremities: Absent cyanosis, clubbing or edema *Routine Skin Exam Skin: Present warm; Absent rash *Routine Neurological Exam Neurological: Present alert and oriented X3 Assessment and Plan *Assessment and plan (1) Metabolic acidosis: Status: Acute Category: Medical Code(s): E87.20 - Acidosis, unspecified (2) Acute hypoxemic respiratory failure: Status: Acute Category: Medical Code(s): J96.01 - Acute respiratory failure with hypoxia (3) KRISTIE (acute kidney injury): Status: Acute Category: Medical Code(s): N17.9 - Acute kidney failure, unspecified (4) Acute hypokalemia: Status: Acute Category: Medical Code(s): E87.6 - Hypokalemia (5) Acidosis, lactic: Status: Acute Category: Medical Code(s): E87.20 - Acidosis, unspecified (6) Diabetes mellitus, type 2: Status: Acute Qualifiers: Diabetes mellitus superintendent container terminal insulin use: without fci use Diabetes mellitus complication status: with other specified complication Qualified Code(s): E11.69 - Type 2 diabetes mellitus with other specified complication Category: Medical Code(s): E11.9 - Type 2 diabetes mellitus without complications Plan 73-year-old female with PMHx of insulin-dependent diabetes, resident from [facility] brought in by EMS to the emergency department with concern for SOB. EMS reports that patient was found on 2 L nasal cannula saturating only in the 70s, they placed her on 4 L and she improved up to the 90s. She was tachycardic and round with rates in the 110s, blood pressure with systolic of 110. on arrival patient workup with leukocytosis 18,000 with neutrophilia. Her VBG is concerning for metabolic acidosis pH 7.21, CO2 low at 26, bicarb low at 10, lactate 10.4. Patient's potassium on chemistry 3.0, this was repleted with IV potassium. KRISTIE with creatinine 1.7 up from normal baseline. Patient given fluids for this. Initial troponin 0.04, repeat troponin 0.05. LFTs nonactionable. Lipase negative. Urinalysis without concern for UTI. CT of the chest abdomen and pelvis without acute concern for any abnormalities. CT head without intracranial hemorrhage or intracranial abnormality. Findings discussed with ED. Agreed for admission: Acute hypoxemic respiratory failure. Improved Acute metabolic acidosis: likely dehydration, hypoxia KRISTIE: presented also with hypokalemia and lactic acidosis:-Resolved to rule out infections. Not clear sources of infections. Suspected metformin l actic acidosis pancultures pending Vanco, Flagyl and cefepime Will continue to complete total 3 days of IV antibiotics, ok to DC antibiotics if no source of infection identified Cr is improving monitor lactic acid - improving discontinue IV fluids, encourage oral hydration repeat labs in the morning replace electrolytes per protocols cardiac monitoring avoid nephrtoxic medication UA negative Hx of NIDDM: on metformin at home. Held accucheck before meals sliding scale Heparin for dvt ppx. On protonix Full code Monitor and replace potassium, likely discharge tomorrow, consult PT/OT, awaiting placement, stable for DC
[2024-01-12] MEDS: DOCUSATE SODIUM 100 MG CAPSULE 200 MG PO (22:28)
[2024-01-12] MEDS: hydrOXYzine pamoate 25MG CAPSULE 50 MG PO (22:28)
[2024-01-12] MEDS: FAMOTIDINE 20MG TABLET 20 MG PO (22:29)
[2024-01-13] VITALS (9 sets, daily range): BP systolic 128–154; BP diastolic 60–77; PULSE 90–125; RESP 16–18; TEMP 36.3–37.4; O2SAT 92–99; BMI 25.0
--- NOTE | 2024-01-13 00:06 | XR_ITS ---
PROCEDURE INFORMATION: Exam: XR Abdomen Exam date and time: 01/13/2024 12:16 AM Age: 73 years old Clinical indication: Vomiting TECHNIQUE: Imaging protocol: Radiologic exam of the abdomen. Views: Frontal supine view of the abdomen. 1 View. COMPARISON: CT ABDOMEN PELVIS W CON 01/09/2024 4:28 PM FINDINGS: Gastrointestinal tract: Moderate gaseous distension of the stomach. Nonspecific bowel-gas pattern in the more distal bowel loops. Intraperitoneal space: Right upper quadrant surgical clips. Bones/joints: Unremarkable. IMPRESSION: Moderate gaseous distension of the stomach
[2024-01-13] MEDS: cefUROXime AXETIL 250MG TABLET 500 MG PO ×3 (00:15→21:18)
[2024-01-13] MEDS: ONDANSETRON 4MG/2ML VIAL 4 MG IV (00:15)
--- NOTE | 2024-01-13 00:30 | PC.NURSE ---
Patient alert to self. Three episodes of emesis noted this far in shift. Emesis chunky and noted with no abnormal smells. Zofran given as ordered with effectiveness noted for a short period of time. Churn Operator notified Hospitalist. New orders were placed for a KUB STAT, NPO Now Diet and Change Zofran 4mg IV from Q8 hours PRN to Q4 hours PRN.
[2024-01-13] MEDS: SIMETHICONE 80MG CHEWABLE TABLET 160 MG PO ×4 (03:28→21:19)
[2024-01-13] MEDS: ALUMINUM/MAGNESIUM/SIMETHICONE 30ML UDC 30 ML PO (03:28)
[2024-01-13] MEDS: 0.9 % SODIUM CHLORIDE 1000ML 1,000 ML 50 ML IV ×2 (03:35→14:08)
--- NOTE | 2024-01-13 03:45 | PC.NURSE ---
JENNIFER complated as ordered. New orders for Maalox 30mL PO QID PRN and Simethicone 180mg PO Q6 hours Scheduled. Medication administered as ordered.
--- NOTE | 2024-01-13 05:33 | PC.NURSE ---
Patient noted with intermittent episodes of Tachycardia, HR in the 120's, director underwriter sales notified Hospitalist. No new orders at this time. Continue to monitor. Patient is on air sampling and monitoring.
[2024-01-13 06:36] LABS: Chloride 114 mmol/L (98-107); Sodium 137 mmol/L (136-145)
[2024-01-13 06:39] LABS: Alanine Aminotransferase 49 U/L (12-78); Albumin Level 2.3 g/dl (3.5-5.0); Albumin/Globulin Ratio 1.1 (1.1-1.8); Alkaline Phosphatase 80 U/L (38-126); Anion Gap 5.9 mEq/L (5-15); Aspartate Amino Transferase 57 U/L (14-36); Bilirubin,Total 0.6 mg/dl (0.2-1.3); Blood Urea Nitrogen 7 mg/dl (7-17); Calcium 7.4 mg/dl (8.4-10.2); Carbon Dioxide 20 mmol/L (22.0-30.0); Creatinine Clearance Estimated 53 mL/min (50-200); Estimated Glomerular Filt Rate 98 ml/min (>60); GFR (African American) 118 ML/MIN (>60); Globulin 2.1 g/dL (1.3-3.2); Glucose 157 mg/dl (74-100); Total Protein,Serum 4.4 g/dl (6.3-8.2)
[2024-01-13 06:40] LABS: Magnesium 1.1 mg/dl (1.6-2.3)
[2024-01-13 06:43] LABS: Basophils % 0.5 % (0.1-2.0); Eosinophils % 0.6 % (0.1-12.0); Hematocrit 28.4 % (37.0-47.0); Hemoglobin 9.4 g/dL (12.2-16.2); Lymphocytes # 1.4 K/mm3 (0.7-4.5); Lymphocytes % 28.4 % (10-50); Mean Corpuscular Hemoglobin 31.4 pg (27.0-31.2); Mean Corpuscular Volume 95.2 fl (81-99); Mean Platelet Volume 7.4 fl (7.4-10.4); Monocytes # 0.3 K/mm3 (0.1-1.0); Monocytes % 5.6 % (1.7-9.3); Neutrophils # 3.3 K/mm3 (1.8-7.8); Neutrophils % 64.9 % (37.0-80.0); Platelet Count 250 K/mm3 (142-424); Red Blood Count 2.98 M/mm3 (4.20-5.40); Red Cell Distribution Width 18.7 % (11.5-17.5); White Blood Count 5.1 K/mm3 (4.8-10.8)
[2024-01-13] MEDS: METFORMIN 500MG TABLET 500 MG PO ×2 (07:00→18:26)
[2024-01-13 07:30] LABS: Potassium 2.9 mmoL/L (3.5-5.1)
--- NOTE | 2024-01-13 07:45 | P.PN_ITS ---
Subjective *Date: 01/13/24 *Time: 13:21 Interval history: Patient had some emesis overnight. Got better with simethicone. KUB showed significant gas. No complaints this morning. Working with therapy. Patient alert and oriented to self only. Does not know where she is, why. Does not know where she lives. Unable to provide any meaningful history. Patient does not have capacity to understand her medical situation and make decisions at this time. Afebrile, on room air. Medical Exam Vital signs and Labs for Last 24 Hours: Vital Signs Temp Pulse Pulse Resp BP Pulse Ox O2 Del Method 01/13/24 07:33 98.5 F 112 H 18 128/66 92 L Room Air 01/13/24 04:45 Room Air 01/13/24 04:00 114 H 01/13/24 04:00 97.3 F L 125 H 17 132/67 94 L 01/13/24 03:00 Room Air 01/13/24 01:00 Room Air 01/13/24 00:00 Room Air 01/13/24 00:00 98.1 F 116 H 17 144/70 H 99 Room Air 01/13/24 00:00 110 H 01/12/24 23:00 Room Air 01/12/24 21:00 Room Air 01/12/24 20:00 Room Air 01/12/24 20:00 94 H 01/12/24 20:00 99.4 F 105 H 18 162/94 H 92 L 01/12/24 19:00 Room Air 01/12/24 17:00 Room Air 01/12/24 16:00 100 H 01/12/24 16:00 98.0 F 96 H 19 129/80 100 Room Air 01/12/24 15:00 Room Air 01/12/24 13:00 Room Air 01/12/24 12:00 98.1 F 90 17 124/66 100 Room Air 01/12/24 12:00 90 01/12/24 11:00 Room Air 01/12/24 08:00 Room Air 01/12/24 08:00 85 01/12/24 08:00 97.6 F 88 21 111/71 99 Room Air Intake and Output 01/12/24 01/12/24 01/13/24 15:59 23:59 07:59 Intake Total 960 / 1800 170 / 1800 370 / 370 Output Total 0 / 200 200 / 200 Balance 960 / 1600 170 / 1600 170 / 170 Intake: Intake, Oral Amount 960 / 1250 170 / 1250 120 / 120 Intake, Total IV Amount 250 / 250 0.9 % Sodium Chloride 1000ML 1, 250 / 250 000 ml @ 50 mls/hr IV .Q20H [facility] Rx#:[id number] Output: Output, Urine Amount 0 / 200 200 / 200 Other: Number of Voids 1 Number of Unmeasured Voids 1 1 1 Number of Bowel Movements 1 Weight 68.067 kg Patient Weight 01/13/24 23:59 Weight 68.067 kg Laboratory Results - last 24 hr 01/12/24 09:00: Vancomycin Trough 12.2 H 01/13/24 06:08: WBC 5.1, RBC 2.98 L, Hgb 9.4 L, Hct 28.4 L, MCV 95.2, MCH 31.4 H , MCHC 33.0, RDW 18.7 H, Plt Count 250, MPV 7.4, Neut % (Auto) 64.9, Lymph % (Auto) 28.4, [place] % (Auto) 5.6, Eos % (Auto) 0.6, Baso % (Auto) 0.5, Neut # (Auto) 3.3, Lymph # (Auto) 1.4, [place] # (Auto) 0.3, Eos # (Auto) 0.0, Baso # (Auto) 0.0, Sodium 137, Potassium 2.9 L*, Chloride 114 H, Carbon Dioxide 20 L, Anion Gap 5.9, BUN 7 D, Creatinine 0.60, Estimated Creat Clear 53, Estimated GFR 98, Est GFR ( Amer) 118, Glucose 157 H D, Calcium 7.4 L, Magnesium 1.1 L, Total Bilirubin 0.6, AST 57 H, ALT 49, Alkaline Phosphatase 80, Total Protein 4.4 L D, Albumin 2.3 L, Globulin 2.1, Albumin/Globulin Ratio 1.1 I & O for Labs for Last 24 Hours: Intake & Output 01/10/24 01/11/24 01/12/24 01/13/24 23:59 23:59 23:59 23:59 Intake Total 2540 / 2540 2110 / 2110 1430 / 1800 370 / 370 Output Total 0 / 0 0 / 0 0 / 200 200 / 200 Balance 2540 / 2540 2110 / 2110 1430 / 1600 170 / 170 Weight 67.585 kg 69.626 kg 68.067 kg 68.067 kg Constitutional: Present no acute distress, average body habitus and cooperative Head: Present atraumatic and normocephalic ENT: Present normal exam Respiratory: Present normal respiratory effort; Absent rhonchi, wheezes or crackles Cardiac: Present Reg Rate and Rhythm GI: Present soft and normal bowel sounds; Absent distention or tenderness Extremities: Present normal inspection, full ROM and edema (2+ to knees) Skin: Present intact; Absent erythema Neuro: Present Grossly Intact, alert, awake and moves all extremities Comment:: Oriented to self only Assessment and Plan *Assessment and plan (1) Metabolic acidosis: Status: Acute Category: Medical Code(s): E87.20 - Acidosis, unspecified (2) Acute hypoxemic respiratory failure: Status: Acute Category: Medical Code(s): J96.01 - Acute respiratory failure with hypoxia (3) KRISTIE (acute kidney injury): Status: Acute Category: Medical Code(s): N17.9 - Acute kidney failure, unspecified (4) Acute hypokalemia: Status: Acute Category: Medical Code(s): E87.6 - Hypokalemia (5) Acidosis, lactic: Status: Acute Category: Medical Code(s): E87.20 - Acidosis, unspecified (6) Diabetes mellitus, type 2: Status: Acute Qualifiers: Diabetes mellitus intermodal owner operator truck driver insulin use: without intermodal owner operator truck driver use Diabetes mellitus complication status: with other specified complication Qualified Code(s): E11.69 - Type 2 diabetes mellitus with other specified complication Category: Medical Code(s): E11.9 - Type 2 diabetes mellitus without complications Plan 73-year-old female with PMHx of insulin-dependent diabetes, resident from [facility] brought in by EMS to the emergency department with concern for SOB. EMS reports that patient was found on 2 L nasal cannula saturating only in the 70s, they placed her on 4 L and she improved up to the 90s. She was tachycardic and round with rates in the 110s, blood pressure with systolic of 110. on arrival patient workup with leukocytosis 18,000 with neutrophilia. Her VBG is concerning for metabolic acidosis pH 7.21, CO2 low at 26, bicarb low at 10, lactate 10.4. Patient's potassium on chemistry 3.0, this was repleted with IV potassium. KRISTIE with creatinine 1.7 up from normal baseline. Patient given fluids for this. Initial troponin 0.04, repeat troponin 0.05. LFTs nonactionable. Lipase negative. Urinalysis without concern for UTI. CT of the chest abdomen and pelvis without acute concern for any abnormalities. CT head without intracranial hemorrhage or intracranial abnormality. Findings discussed with ED. Agreed for admission. Patient has been doing well. Responding to therapy. Weaned to room air. Continues to require inpatient management. At this time, patient would benefit from placement but is unable to make decisions. Case management consulted and assisting with possible guardianship status. Continue inpatient management. Problems addressed as follows: Acute hypoxemic respiratory failure. Resolved Acute metabolic acidosis: likely dehydration, hypoxia KRISTIE: Resolved Patient's urine and blood cultures remain negative. Has been on antibiotics since admission. Weaned to cefuroxime. Will complete 5 days total of antibiotics. Kidney function normalized, creatinine 1.6. BUN 7. Repeat CBC, CMP, magnesium ordered for the morning Potassium low at 2.9, will replace both oral and IV. Magnesium low at 1.1. Replacing oral and IV. White cell count normalized to 5.1. Anemia with hemoglobin of 9.4 Hx of NIDDM: on metformin at home. Held accucheck before meals sliding scale Heparin for dvt ppx protonix Full code PT and OT working with patient. Case management assisting with decision making capacity/potential guardianship for referral to rehab.
[2024-01-13] MEDS: ASPIRIN 81MG CHEWABLE TABLET 81 MG PO (09:35)
[2024-01-13] MEDS: LORazepam 0.5MG TABLET 0.5 MG PO ×2 (09:35→21:18)
[2024-01-13] MEDS: POTASSIUM CHLORIDE 20MEQ TAB 40 MEQ PO ×2 (09:35→21:18)
[2024-01-13] MEDS: KCl 10mEq/100ml 100 ML 100 MEQ IV ×2 (09:35→10:59)
[2024-01-13] MEDS: MAGNESIUM OXIDE 400MG TABLET 400 MG PO (09:35)
[2024-01-13] MEDS: BUSPIRONE HCL 10 MG TABLET PO ×2 (09:36→21:18)
[2024-01-13] MEDS: HEPARIN SODIUM 5,000 UNIT/ML VIAL 5000 UNIT SQ ×2 (09:36→21:16)
[2024-01-13] MEDS: NYSTATIN TOPICAL POWDER 30GM TP ×2 (09:36→21:19)
[2024-01-13] MEDS: MAGNESIUM SULFATE IN WATER 2 GM/50 ML PIGGYBACK IV (12:02)
[2024-01-13] MEDS: SERTRALINE 100MG TABLET 100 MG PO (12:02)
[2024-01-13] MEDS: ERGOCALCIFEROL 50,000 UNITS (1.25MG) CAPSULE 50000 UNIT PO (14:13)
[2024-01-13 18:35] LABS: POC Glucose,Bedside 121 (70-110)
--- NOTE | 2024-01-13 19:06 | PC.NURSE ---
Patient has had no c/o n/v this shift. Patient alert and oriented to self only.
[2024-01-13] MEDS: hydrOXYzine pamoate 25MG CAPSULE 50 MG PO (21:16)
[2024-01-13] MEDS: DOCUSATE SODIUM 100 MG CAPSULE 200 MG PO (21:17)
[2024-01-13] MEDS: FAMOTIDINE 20MG TABLET 20 MG PO (21:18)
[2024-01-14] VITALS (8 sets, daily range): BP systolic 135–154; BP diastolic 51–92; PULSE 76–110; RESP 16–20; TEMP 36.3–36.9; O2SAT 95–100; BMI 26.2
[2024-01-14] MEDS: SIMETHICONE 80MG CHEWABLE TABLET 160 MG PO ×4 (02:04→20:41)
[2024-01-14 07:08] LABS: Chloride 114 mmol/L (98-107); Potassium 3.8 mmoL/L (3.5-5.1); Sodium 137 mmol/L (136-145)
[2024-01-14 07:10] LABS: Blood Urea Nitrogen 3 mg/dl (7-17); Creatinine Clearance Estimated 56 mL/min (50-200); Estimated Glomerular Filt Rate 121 ml/min (>60); GFR (African American) 146 ML/MIN (>60)
[2024-01-14 07:11] LABS: Alanine Aminotransferase 45 U/L (12-78); Albumin Level 2.3 g/dl (3.5-5.0); Alkaline Phosphatase 85 U/L (38-126); Anion Gap 4.8 mEq/L (5-15); Aspartate Amino Transferase 52 U/L (14-36); Bilirubin,Total 0.6 mg/dl (0.2-1.3); Calcium 7.5 mg/dl (8.4-10.2); Carbon Dioxide 22 mmol/L (22.0-30.0); Globulin 2.2 g/dL (1.3-3.2); Glucose 103 mg/dl (74-100); Total Protein,Serum 4.5 g/dl (6.3-8.2)
[2024-01-14 07:21] LABS: Basophils % 0.5 % (0.1-2.0); Eosinophils # 0.1 K/mm3 (0.0-0.4); Eosinophils % 1.7 % (0.1-12.0); Hematocrit 29.2 % (37.0-47.0); Hemoglobin 9.7 g/dL (12.2-16.2); Lymphocytes # 2.1 K/mm3 (0.7-4.5); Lymphocytes % 26.6 % (10-50); Mean Corpuscular HGB Conc 33.2 g/dL (31.8-35.4); Mean Corpuscular Hemoglobin 31.8 pg (27.0-31.2); Mean Corpuscular Volume 95.8 fl (81-99); Mean Platelet Volume 7.9 fl (7.4-10.4); Monocytes # 0.5 K/mm3 (0.1-1.0); Neutrophils % 65.2 % (37.0-80.0); Platelet Count 276 K/mm3 (142-424); Red Blood Count 3.04 M/mm3 (4.20-5.40); Red Cell Distribution Width 18.9 % (11.5-17.5); White Blood Count 7.7 K/mm3 (4.8-10.8)
[2024-01-14 08:29] LABS: Magnesium 1.7 mg/dl (1.6-2.3)
[2024-01-14] MEDS: 0.9 % SODIUM CHLORIDE 1000ML 1,000 ML 50 ML IV (08:52)
[2024-01-14] MEDS: METFORMIN 500MG TABLET 500 MG PO ×2 (08:53→16:56)
[2024-01-14] MEDS: ASPIRIN 81MG CHEWABLE TABLET 81 MG PO (08:53)
[2024-01-14] MEDS: BUSPIRONE HCL 10 MG TABLET PO ×2 (08:53→20:39)
[2024-01-14] MEDS: POTASSIUM CHLORIDE 20MEQ TAB 40 MEQ PO ×2 (08:53→20:40)
[2024-01-14] MEDS: SERTRALINE 100MG TABLET 100 MG PO (08:54)
[2024-01-14] MEDS: NYSTATIN TOPICAL POWDER 30GM TP ×2 (08:54→20:46)
[2024-01-14] MEDS: cefUROXime AXETIL 250MG TABLET 500 MG PO ×2 (08:54→20:40)
[2024-01-14] MEDS: HEPARIN SODIUM 5,000 UNIT/ML VIAL 5000 UNIT SQ ×2 (08:55→20:45)
[2024-01-14] MEDS: MAGNESIUM OXIDE 400MG TABLET 400 MG PO (08:55)
[2024-01-14] MEDS: LORazepam 0.5MG TABLET 0.5 MG PO ×2 (08:57→21:01)
--- NOTE | 2024-01-14 12:57 | P.PN_ITS ---
Subjective *Date: 01/14/24 *Time: 16:54 Interval history: No events overnight. Pleasant on exam. On room air. Denies chest pain or shortness of breath. Alert to self only Medical Exam Vital signs and Labs for Last 24 Hours: Vital Signs Temp Pulse Pulse Resp BP Pulse Ox O2 Del Method 01/14/24 12:00 97.8 F 106 H 20 153/51 H 96 Room Air 01/14/24 09:00 Room Air 01/14/24 08:00 Room Air 01/14/24 08:00 97.3 F L 100 H 16 139/73 99 Room Air 01/14/24 06:37 Room Air 01/14/24 05:00 Room Air 01/14/24 04:00 97.7 F 101 H 16 145/92 H 99 01/14/24 04:00 102 H 01/14/24 03:00 Room Air 01/14/24 00:48 Room Air 01/14/24 00:00 98.1 F 100 H 16 135/75 100 01/14/24 00:00 96 H 01/13/24 23:00 Room Air 01/13/24 21:00 Room Air 01/13/24 20:00 97.8 F 113 H 17 154/60 H 98 01/13/24 20:00 101 H 01/13/24 19:49 98 Room Air 01/13/24 16:00 99.4 F 112 H 16 153/75 H 98 Room Air 01/13/24 15:35 110 H Intake and Output 01/13/24 01/14/24 01/14/24 23:59 07:59 15:59 Intake Total 434 / 804 483 / 843 360 / 843 Output Total 201 / 551 0 / 0 Balance 233 / 253 483 / 843 360 / 843 Intake: Intake, Oral Amount 240 / 600 360 / 600 Intake, Total IV Amount 434 / 684 243 / 243 0.9 % Sodium Chloride 1000ML 1, 434 / 684 243 / 243 000 ml @ 50 mls/hr IV .Q20H [facility] Rx#:[id number] Output: Output, Urine Amount 201 / 551 0 / 0 Other: Number of Voids 3 0 Number of Unmeasured Voids 1 3 Number of Bowel Movements 1 Weight 71.35 kg Patient Weight 01/14/24 23:59 Weight 71.35 kg Laboratory Results - last 24 hr 01/13/24 18:25: POC Glucose 121 H 01/14/24 06:11: WBC 7.7 D, RBC 3.04 L, Hgb 9.7 L, Hct 29.2 L, MCV 95.8, MCH 31.8 H, MCHC 33.2, RDW 18.9 H, Plt Count 276, MPV 7.9, Neut % (Auto) 65.2, Lymph % (Auto) 26.6, [place] % (Auto) 6.0, Eos % (Auto) 1.7, Baso % (Auto) 0.5, Neut # (Auto) 5.0, Lymph # (Auto) 2.1, [place] # (Auto) 0.5, Eos # (Auto) 0.1, Baso # (Auto) 0.0, Sodium 137, Potassium 3.8 D, Chloride 114 H, Carbon Dioxide 22, Anion Gap 4.8 L, BUN 3 L D, Creatinine 0.50 L, Estimated Creat Clear 56, Estimated GFR 121, Est GFR ( Amer) 146 D, Glucose 103 H, Calcium 7.5 L, Magnesium 1.7 D, Total Bilirubin 0.6, AST 52 H, ALT 45, Alkaline Phosphatase 85, Total Protein 4.5 L, Albumin 2.3 L, Globulin 2.2, Albumin/Globulin Ratio 1.0 L I & O for Labs for Last 24 Hours: Intake & Output 01/11/24 01/12/24 01/13/24 01/14/24 23:59 23:59 23:59 23:59 Intake Total 2109 / 2109 1430 / 1800 804 / 804 843 / 843 Output Total 0 / 0 0 / 200 551 / 551 0 / 0 Balance 2109 1430 / 1600 253 / 253 843 / 843 Weight 69.626 kg 68.067 kg 68.067 kg 71.35 kg Microbiology Reports for the Last 24 Hours: Microbiology 01/09/24 14:47 Urine,Catheterized Urine Culture - Final 01/09/24 15:55 Blood Blood Culture - Preliminary 01/09/24 15:45 Blood Blood Culture - Preliminary Constitutional: Present no acute distress, average body habitus and cooperative Head: Present atraumatic and normocephalic ENT: Present normal exam Respiratory: Present normal respiratory effort; Absent rhonchi, wheezes or crackles Cardiac: Present Reg Rate and Rhythm GI: Present soft and normal bowel sounds; Absent distention or tenderness Extremities: Present normal inspection, full ROM and edema (2+ to knees) Skin: Present intact; Absent erythema Neuro: Present Grossly Intact, alert, awake and moves all extremities Comment:: Oriented to self only Assessment and Plan *Assessment and plan (1) Metabolic acidosis: Status: Acute Category: Medical Code(s): E87.20 - Acidosis, unspecified (2) Acute hypoxemic respiratory failure: Status: Acute Category: Medical Code(s): J96.01 - Acute respiratory failure with hypoxia (3) KRISTIE (acute kidney injury): Status: Acute Category: Medical Code(s): N17.9 - Acute kidney failure, unspecified (4) Acute hypokalemia: Status: Acute Category: Medical Code(s): E87.6 - Hypokalemia (5) Acidosis, lactic: Status: Acute Category: Medical Code(s): E87.20 - Acidosis, unspecified (6) Diabetes mellitus, type 2: Status: Acute Qualifiers: Diabetes mellitus exterminator insulin use: without residential use Diabetes mellitus complication status: with other specified complication Qualified Code(s): E11.69 - Type 2 diabetes mellitus with other specified complication Category: Medical Code(s): E11.9 - Type 2 diabetes mellitus without complications Plan 73-year-old female with PMHx of insulin-dependent diabetes, resident from [facility] brought in by EMS to the emergency department with concern for SOB. EMS reports that patient was found on 2 L nasal cannula saturating only in the 70s, they placed her on 4 L and she improved up to the 90s. She was tachycardic and round with rates in the 110s, blood pressure with systolic of 110. on arrival patient workup with leukocytosis 18,000 with neutrophilia. Her VBG is concerning for metabolic acidosis pH 7.21, CO2 low at 26, bicarb low at 10, lactate 10.4. Patient's potassium on chemistry 3.0, this was repleted with IV potassium. KRISTIE with creatinine 1.7 up from normal baseline. Patient given fluids for this. Initial troponin 0.04, repeat troponin 0.05. LFTs nonactionable. Lipase negative. Urinalysis without concern for UTI. CT of the chest abdomen and pelvis without acute concern for any abnormalities. CT head without intracranial hemorrhage or intracranial abnormality. Findings discussed with ED. Agreed for admission. Patient has been doing well. Responding to therapy. Tolerating room air. Awaiting placement. Will give lab holiday in the morning. Problems addressed as follows: Acute hypoxemic respiratory failure. Resolved Acute metabolic acidosis: likely dehydration, hypoxia KRISTIE: Resolved Patient's urine and blood cultures remain negative. Has been on antibiotics since admission. Weaned to cefuroxime. Will complete 5 days total of antibiotics. Kidney function normalized, creatinine 0.5, BUN 3. Magnesium 1.7 and potassium 3.8. White cell count normalized to 7.7 Anemia stable with hemoglobin of 9.7 Hx of NIDDM: on metformin at home. Held accucheck before meals sliding scale Heparin for dvt ppx protonix Full code PT and OT working with patient. Case management assisting with decision making capacity/potential guardianship for referral to rehab.
--- NOTE | 2024-01-14 15:44 | PC.NURSE ---
no acute changes this shift. tolerating po intake well. she has not required o2 support.
[2024-01-14] MEDS: humaLOG 100 UNITS/ML 3ML VIAL (SSI) 9 UNIT SQ (17:02)
[2024-01-14 17:06] LABS: POC Glucose,Bedside 189 (70-110)
[2024-01-14] MEDS: FAMOTIDINE 20MG TABLET 20 MG PO (20:39)
[2024-01-14] MEDS: DOCUSATE SODIUM 100 MG CAPSULE 200 MG PO (20:41)
[2024-01-14] MEDS: hydrOXYzine pamoate 25MG CAPSULE 50 MG PO (20:42)
--- NOTE | 2024-01-14 23:57 | PC.NURSE ---
Called to rm [id number] by SINAI Hollins . SKI GUIDE states patient in the floor. upon entering room patient was leaning on left hip. No complaints of pain. No new bruises noted. Able to move all extremities. Patient says she was trying to go to the BSC but legs gave out . Last time checked was 2300 and patient was asleep with hob elevated 30 degrees. Gripper socks on. Bed alarm on. Call peres in reach. BP 131/80 HR 76 02 sat 93%. Patient assisted to BSC. Bath received. Assited back to bed. Notified Provider Woody Castaneda , CPO, Charge nurse, Cable [employer]. No new orders per CPO.
[2024-01-15] VITALS: BP 109/71; PULSE 92; PULSE 97; RESP 18; TEMP 36.6; O2SAT 96
--- NOTE | 2024-01-15 03:53 | PC.NURSE ---
IV access to right ac no longer patent. Site discontinued.
[2024-01-15 04:00] VITALS: BP 128/74; PULSE 113; PULSE 120; RESP 18; TEMP 36.8; O2SAT 100; BMI 26.5
[2024-01-15] MEDS: 0.9 % SODIUM CHLORIDE 1000ML 1,000 ML 50 ML IV (04:00)
[2024-01-15 07:36] LABS: Basophils % 0.3 % (0.1-2.0); Eosinophils # 0.1 K/mm3 (0.0-0.4); Eosinophils % 1.5 % (0.1-12.0); Hematocrit 30.5 % (37.0-47.0); Hemoglobin 9.7 g/dL (12.2-16.2); Lymphocytes # 2.4 K/mm3 (0.7-4.5); Lymphocytes % 29.5 % (10-50); Mean Corpuscular HGB Conc 31.8 g/dL (31.8-35.4); Mean Corpuscular Hemoglobin 31.7 pg (27.0-31.2); Mean Corpuscular Volume 99.4 fl (81-99); Mean Platelet Volume 8.4 fl (7.4-10.4); Monocytes # 0.5 K/mm3 (0.1-1.0); Monocytes % 6.6 % (1.7-9.3); Neutrophils # 5.1 K/mm3 (1.8-7.8); Neutrophils % 62.1 % (37.0-80.0); Platelet Count 267 K/mm3 (142-424); Red Blood Count 3.07 M/mm3 (4.20-5.40); Red Cell Distribution Width 19.2 % (11.5-17.5); White Blood Count 8.1 K/mm3 (4.8-10.8)
--- NOTE | 2024-01-15 07:42 | P.PN_ITS ---
Subjective *Date: 01/15/24 *Time: 14:48 Interval history: Stable on room air. Had a fall overnight. Tolerating p.o. intake. No trauma or pain today. No shortness of breath or chest pain. No nausea or vomiting. Medical Exam Vital signs and Labs for Last 24 Hours: Vital Signs Temp Pulse Pulse Resp BP Pulse Ox O2 Del Method 01/15/24 06:29 Room Air 01/15/24 04:56 Room Air 01/15/24 04:00 98.2 F 120 H 18 128/74 100 Room Air 01/15/24 04:00 113 H 01/15/24 03:00 Room Air 01/15/24 01:00 Room Air 01/15/24 00:00 97 H 01/15/24 00:00 97.8 F 92 H 18 109/71 L 96 Room Air 01/14/24 23:55 100 Room Air 01/14/24 23:00 Room Air 01/14/24 20:00 103 H 01/14/24 20:00 98.4 F 79 18 140/81 95 Room Air 01/14/24 19:35 96 Room Air 01/14/24 18:12 Room Air 01/14/24 17:00 Room Air 01/14/24 16:00 110 H 01/14/24 16:00 97.6 F 76 17 154/60 H 96 Room Air 01/14/24 15:00 Room Air 01/14/24 13:00 Room Air 01/14/24 12:00 100 H 01/14/24 12:00 97.8 F 106 H 20 153/51 H 96 Room Air 01/14/24 11:00 Room Air 01/14/24 09:00 Room Air 01/14/24 08:00 90 01/14/24 08:00 Room Air 01/14/24 08:00 97.3 F L 100 H 16 139/73 99 Room Air Intake and Output 01/14/24 01/14/24 01/15/24 15:59 23:59 07:59 Intake Total 360 / 2284 270 / 2284 1334 / 1334 Output Total 0 / 0 0 / 0 0 / 0 Balance 360 / 2284 270 / 2284 1334 / 1334 Intake: Intake, Oral Amount 360 / 1310 270 / 1310 440 / 440 Intake, Total IV Amount 894 / 894 0.9 % Sodium Chloride 1000ML 1, 894 / 894 000 ml @ 50 mls/hr IV .Q20H [facility] Rx#:[id number] Output: Output, Urine Amount 0 / 0 0 / 0 0 / 0 Other: Number of Voids 0 0 Number of Unmeasured Voids 1 1 Number of Bowel Movements 1 1 Weight 72.206 kg Patient Weight 01/15/24 23:59 Weight 72.206 kg Laboratory Results - last 24 hr 01/14/24 06:11: WBC 7.7 D, RBC 3.04 L, Hgb 9.7 L, Hct 29.2 L, MCV 95.8, MCH 31.8 H, MCHC 33.2, RDW 18.9 H, Plt Count 276, MPV 7.9, Neut % (Auto) 65.2, Lymph % (Auto) 26.6, [place] % (Auto) 6.0, Eos % (Auto) 1.7, Baso % (Auto) 0.5, Neut # (Auto) 5.0, Lymph # (Auto) 2.1, [place] # (Auto) 0.5, Eos # (Auto) 0.1, Baso # (Auto) 0.0, Sodium 137, Potassium 3.8 D, Chloride 114 H, Carbon Dioxide 22, Anion Gap 4.8 L, BUN 3 L D, Creatinine 0.50 L, Estimated Creat Clear 56, Estimated GFR 121, Est GFR ( Amer) 146 D, Glucose 103 H, Calcium 7.5 L, Magnesium 1.7 D, Total Bilirubin 0.6, AST 52 H, ALT 45, Alkaline Phosphatase 85, Total Protein 4.5 L, Albumin 2.3 L, Globulin 2.2, Albumin/Globulin Ratio 1.0 L 01/14/24 16:39: POC Glucose 189 H I & O for Labs for Last 24 Hours: Intake & Output 01/12/24 01/13/24 01/14/24 01/15/24 23:59 23:59 23:59 23:59 Intake Total 1430 / 1800 804 / 804 1113 / 2284 1334 / 1334 Output Total 0 / 200 551 / 551 0 / 0 0 / 0 Balance 1430 / 1600 253 / 253 1113 / 2284 1334 / 1334 Weight 68.067 kg 68.067 kg 71.35 kg 72.206 kg Microbiology Reports for the Last 24 Hours: Microbiology 01/09/24 15:55 Blood Blood Culture - Preliminary 01/09/24 15:45 Blood Blood Culture - Preliminary 01/09/24 14:47 Urine,Catheterized Urine Culture - Final Constitutional: Present no acute distress, average body habitus and cooperative Head: Present atraumatic and normocephalic ENT: Present normal exam Respiratory: Present normal respiratory effort; Absent rhonchi, wheezes or crackles Cardiac: Present Reg Rate and Rhythm GI: Present soft and normal bowel sounds; Absent distention or tenderness Extremities: Present normal inspection, full ROM and edema (2+ to knees) Skin: Present intact; Absent erythema Neuro: Present Grossly Intact, alert, awake and moves all extremities Comment:: Oriented to self only Assessment and Plan *Assessment and plan (1) Weakness: Status: Acute Category: Medical Code(s): R53.1 - Weakness (2) Fall: Status: Acute Category: Medical Code(s): W19.XXXA - Unspecified fall, initial encounter (3) Metabolic acidosis: Status: Acute Category: Medical Code(s): E87.20 - Acidosis, unspecified (4) Acute hypoxemic respiratory failure: Status: Acute Category: Medical Code(s): J96.01 - Acute respiratory failure with hypoxia (5) KRISTIE (acute kidney injury): Status: Acute Category: Medical Code(s): N17.9 - Acute kidney failure, unspecified (6) Acute hypokalemia: Status: Acute Category: Medical Code(s): E87.6 - Hypokalemia (7) Acidosis, lactic: Status: Acute Category: Medical Code(s): E87.20 - Acidosis, unspecified (8) Diabetes mellitus, type 2: Status: Acute Qualifiers: Diabetes mellitus complication status: with other specified complication Diabetes mellitus senior living insulin use: without intermodal dispatcher use Qualified Code(s): E11.69 - Type 2 diabetes mellitus with other specified complication Category: Medical Code(s): E11.9 - Type 2 diabetes mellitus without complications Plan 73-year-old female with PMHx of insulin-dependent diabetes, resident from [facility] brought in by EMS to the emergency department with concern for SOB. EMS reports that patient was found on 2 L nasal cannula saturating only in the 70s, they placed her on 4 L and she improved up to the 90s. She was tachycardic and round with rates in the 110s, blood pressure with systolic of 110. on ar rival patient workup with leukocytosis 18,000 with neutrophilia. Her VBG is concerning for metabolic acidosis pH 7.21, CO2 low at 26, bicarb low at 10, lactate 10.4. Patient's potassium on chemistry 3.0, this was repleted with IV potassium. KRISTIE with creatinine 1.7 up from normal baseline. Patient given fluids for this. Initial troponin 0.04, repeat troponin 0.05. LFTs nonactionable. Lipase negative. Urinalysis without concern for UTI. CT of the chest abdomen and pelvis without acute concern for any abnormalities. CT head without intracranial hemorrhage or intracranial abnormality. Findings discussed with ED. Agreed for admission. Patient has been doing well. Responding to therapy. Tolerating room air. Awaiting placement. Will give lab holiday in the morning. Problems addressed as follows: Acute hypoxemic respiratory failure. Resolved Acute metabolic acidosis: likely dehydration, hypoxia KRISTIE: Resolved Patient's urine and blood cultures remain negative. Has been on antibiotics since admission. Weaned to cefuroxime. Will complete 5 days total of antibiotics. Creatinine 0.5, BUN 3. Potassium 4.7. White cell count normalized to 8.1 Anemia stable with hemoglobin of 9.7 Hx of NIDDM: on metformin at home. Held accucheck before meals sliding scale Heparin for dvt ppx protonix Full code PT and OT working with patient. Case management assisting with decision making capacity/potential guardianship for referral to rehab.
[2024-01-15 08:00] VITALS: BP 133/70; PULSE 98; RESP 16; TEMP 36.6; O2SAT 100
[2024-01-15 08:02] LABS: Alanine Aminotransferase 41 U/L (12-78); Albumin Level 2.4 g/dl (3.5-5.0); Anion Gap 6.7 mEq/L (5-15); Aspartate Amino Transferase 43 U/L (14-36); Bilirubin,Total 0.6 mg/dl (0.2-1.3); Blood Urea Nitrogen 3 mg/dl (7-17); Calcium 7.9 mg/dl (8.4-10.2); Carbon Dioxide 20 mmol/L (22.0-30.0); Chloride 115 mmol/L (98-107); Creatinine Clearance Estimated 56 mL/min (50-200); Estimated Glomerular Filt Rate 121 ml/min (>60); GFR (African American) 146 ML/MIN (>60); Globulin 2.4 g/dL (1.3-3.2); Glucose 94 mg/dl (74-100); Potassium 4.7 mmoL/L (3.5-5.1); Sodium 137 mmol/L (136-145); Total Protein,Serum 4.8 g/dl (6.3-8.2)
[2024-01-15 08:03] LABS: Alkaline Phosphatase 99 U/L (38-126)
[2024-01-15] MEDS: cefUROXime AXETIL 250MG TABLET 500 MG PO ×2 (08:52→20:43)
[2024-01-15] MEDS: LORazepam 0.5MG TABLET 0.5 MG PO ×2 (08:52→20:43)
[2024-01-15] MEDS: POTASSIUM CHLORIDE 20MEQ TAB 40 MEQ PO ×2 (08:52→20:44)
[2024-01-15] MEDS: MAGNESIUM OXIDE 400MG TABLET 400 MG PO (08:52)
[2024-01-15] MEDS: ASPIRIN 81MG CHEWABLE TABLET 81 MG PO (08:52)
[2024-01-15] MEDS: SIMETHICONE 80MG CHEWABLE TABLET 160 MG PO ×2 (08:52→20:44)
[2024-01-15] MEDS: METFORMIN 500MG TABLET 500 MG PO ×2 (08:52→16:58)
[2024-01-15] MEDS: SERTRALINE 100MG TABLET 100 MG PO (08:52)
[2024-01-15] MEDS: BUSPIRONE HCL 10 MG TABLET PO ×2 (08:52→20:43)
[2024-01-15] MEDS: HEPARIN SODIUM 5,000 UNIT/ML VIAL 5000 UNIT SQ ×2 (08:52→20:42)
[2024-01-15] MEDS: NYSTATIN TOPICAL POWDER 30GM TP ×2 (08:53→20:56)
--- NOTE | 2024-01-15 15:19 | PC.NURSE ---
Pt. is aox1 darren confusion noted, bed alarm on, up with assistance times 2 to bsc, 90's on RA, regular diet, being seen by PT AND OT, awaiting guardianship.
[2024-01-15 16:00] VITALS: BP 107/51; PULSE 93; RESP 18; TEMP 36.7; O2SAT 100
[2024-01-15] MEDS: FUROSEMIDE 40MG/4ML VIAL 40 MG IV (16:58)
[2024-01-15 17:11] LABS: POC Glucose,Bedside 81 (70-110)
[2024-01-15 20:00] VITALS: BP 135/83; PULSE 121; RESP 22; TEMP 36.9; O2SAT 100; O2SAT 98
[2024-01-15] MEDS: DOCUSATE SODIUM 100 MG CAPSULE 200 MG PO (20:43)
[2024-01-15] MEDS: hydrOXYzine pamoate 25MG CAPSULE 50 MG PO (20:43)
[2024-01-15] MEDS: FAMOTIDINE 20MG TABLET 20 MG PO (20:43)
--- NOTE | 2024-01-16 | PC.NURSE ---
PATIENT HAS PULLED HER ULTRASOUND GUIDED IV OUT OF HER LAC WHICH WAS PLACED YESTERDAY. PULLED IV THAT WAS IN RAC ULTRASOUND GUIDED YESTERDAY AND WAS UNABLE TO ACCESS UNTIL ER STAFF CAME UP AND PLACED ONE IN THE LAC. PATIENT IS CONFUSED. ALSO PULLING AT THE PUREWICK. WANTS OOB EVERY 30 MINS TO GO USE BATHROOM. DOESNT UNDERSTAND THE PUREWICK. BED ALARM INUSE. ORDER RECEIVED TO D/C IVFs. NO IV ACCESS AT THIS TIME.
[2024-01-16] MEDS: SIMETHICONE 80MG CHEWABLE TABLET 160 MG PO ×3 (01:42→20:41)
[2024-01-16 04:00] VITALS: BP 158/85; PULSE 118; RESP 18; TEMP 36.8; O2SAT 98; BMI 26.2
[2024-01-16] MEDS: HEPARIN SODIUM 5,000 UNIT/ML VIAL 5000 UNIT SQ ×2 (07:37→20:40)
[2024-01-16] MEDS: ASPIRIN 81MG CHEWABLE TABLET 81 MG PO (07:38)
[2024-01-16] MEDS: POTASSIUM CHLORIDE 20MEQ TAB 40 MEQ PO ×2 (07:38→20:40)
[2024-01-16] MEDS: BUSPIRONE HCL 10 MG TABLET PO ×2 (07:38→20:40)
[2024-01-16] MEDS: SERTRALINE 100MG TABLET 100 MG PO (07:38)
[2024-01-16] MEDS: MAGNESIUM OXIDE 400MG TABLET 400 MG PO (07:38)
[2024-01-16] MEDS: METFORMIN 500MG TABLET 500 MG PO ×2 (07:39→17:05)
[2024-01-16] MEDS: FUROSEMIDE 40 MG TABLET PO (07:39)
[2024-01-16] MEDS: cefUROXime AXETIL 250MG TABLET 500 MG PO (07:39)
[2024-01-16 07:56] VITALS: BP 139/68; PULSE 113; RESP 22; TEMP 36.6; O2SAT 100
[2024-01-16] MEDS: NYSTATIN TOPICAL POWDER 30GM TP ×2 (08:24→20:41)
[2024-01-16] MEDS: LORazepam 0.5MG TABLET 0.5 MG PO ×2 (08:24→20:40)
--- NOTE | 2024-01-16 11:10 | PC.NURSE ---
pt got up once with walker to bathroom. later within the hour pt stated she needed to go to the bathroom but fought against assistance while standing and insisted she can't
--- NOTE | 2024-01-16 11:36 | P.PN_ITS ---
Subjective *Date: 01/16/24 *Time: 15:47 Interval history: No events overnight. On exam, was being changed due to incontinence. Afebrile overnight. Has completed antibiotic course. Having loose stools, will monitor for improvement with stopping antibiotics. On room air. Patient little bit more confused today. Knows her name Medical Exam Vital signs and Labs for Last 24 Hours: Vital Signs Temp Pulse Resp BP Pulse Ox O2 Del Method 01/16/24 10:03 Room Air 01/16/24 07:56 97.8 F 113 H 22 139/68 100 01/16/24 07:48 Room Air 01/16/24 07:46 Room Air 01/16/24 06:36 Room Air 01/16/24 05:00 Room Air 01/16/24 04:00 98.2 F 118 H 18 158/85 H 98 Room Air 01/16/24 03:00 Room Air 01/16/24 01:00 Room Air 01/15/24 23:00 Room Air 01/15/24 21:00 Room Air 01/15/24 20:00 98.4 F 121 H 22 135/83 98 Room Air 01/15/24 20:00 100 Room Air 01/15/24 18:02 Room Air 01/15/24 16:33 Room Air 01/15/24 16:00 98.0 F 93 H 18 107/51 L 100 Room Air 01/15/24 14:13 Room Air 01/15/24 12:16 Room Air Intake and Output 01/15/24 01/16/24 01/16/24 23:59 07:59 15:59 Intake Total 710 / 3134 120 / 120 Output Total 250 / 250 450 / 450 0 / 450 Balance 460 / 2884 -330 / -330 0 / -330 Intake: Intake, Oral Amount 410 / 1540 120 / 120 Intake, Total IV Amount 300 / 1594 0.9 % Sodium Chloride 1000ML 1, 300 / 1594 000 ml @ 50 mls/hr IV .Q20H [facility] Rx#:[id number] Output: Output, Urine Amount 250 / 250 450 / 450 0 / 450 Other: Number of Unmeasured Voids 1 1 Number of Bowel Movements 1 2 Weight 71.242 kg Patient Weight 01/16/24 23:59 Weight 71.242 kg Laboratory Results - last 24 hr 01/15/24 17:03: POC Glucose 81 I & O for Labs for Last 24 Hours: Intake & Output 01/13/24 01/14/24 01/15/24 01/16/24 23:59 23:59 23:59 23:59 Intake Total 804 / 804 1113 / 2284 3134 / 3134 120 / 120 Output Total 551 / 551 0 / 0 250 / 250 450 / 450 Balance 253 / 253 1113 / 2284 2884 / 2884 -330 / -330 Weight 68.067 kg 71.35 kg 72.206 kg 71.242 kg Constitutional: Present no acute distress, average body habitus and cooperative Head: Present atraumatic and normocephalic ENT: Present normal exam Respiratory: Present normal respiratory effort; Absent rhonchi, wheezes or crackles Cardiac: Present Reg Rate and Rhythm GI: Present soft and normal bowel sounds; Absent distention or tenderness Comments:: Erythematous rash with satellite lesions in region Extremities: Present normal inspection, full ROM and edema (2+ to knees) Skin: Present intact; Absent erythema Neuro: Present Grossly Intact, alert, awake and moves all extremities Comment:: Oriented to self only Assessment and Plan *Assessment and plan (1) Weakness: Status: Acute Category: Medical Code(s): R53.1 - Weakness (2) Fall: Status: Acute Category: Medical Code(s): W19.XXXA - Unspecified fall, initial encounter (3) Metabolic acidosis: Status: Acute Category: Medical Code(s): E87.20 - Acidosis, unspecified (4) Acute hypoxemic respiratory failure: Status: Acute Category: Medical Code(s): J96.01 - Acute respiratory failure with hypoxia (5) KRISTIE (acute kidney injury): Status: Acute Category: Medical Code(s): N17.9 - Acute kidney failure, unspecified (6) Acute hypokalemia: Status: Acute Category: Medical Code(s): E87.6 - Hypokalemia (7) Acidosis, lactic: Status: Acute Category: Medical Code(s): E87.20 - Acidosis, unspecified (8) Diabetes mellitus, type 2: Status: Acute Qualifiers: Diabetes mellitus adjunct faculty for medical terminology insulin use: without usp use Diabetes mellitus complication status: with other specified complication Qualified Code(s): E11.69 - Type 2 diabetes mellitus with other specified complication Category: Medical Code(s): E11.9 - Type 2 diabetes mellitus without complications (9) Candidal dermatitis: Status: Acute Category: Medical Code(s): B37.2 - Candidiasis of skin and nail Plan 73-year-old female with PMHx of insulin-dependent diabetes, resident from [facility] brought in by EMS to the emergency department with concern for SOB. EMS reports that patient was found on 2 L nasal cannula saturating only in the 70s, they placed her on 4 L and she improved up to the 90s. She was tachycardic and round with rates in the 110s, blood pressure with systolic of 110. on arrival patient workup with leukocytosis 18,000 with neutrophilia. Her VBG is concerning for metabolic acidosis pH 7.21, CO2 low at 26, bicarb low at 10, lactate 10.4. Patient's potassium on chemistry 3.0, this was repleted with IV potassium. KRISTIE with creatinine 1.7 up from normal baseline. Patient given fluids for this. Initial troponin 0.04, repeat troponin 0.05. LFTs nonactionable. Lipase negative. Urinalysis without concern for UTI. CT of the chest abdomen and pelvis without acute concern for any abnormalities. CT head without intracranial hemorrhage or intracranial abnormality. Findings discussed with ED. Agreed for admission. Patient has been doing well. Completed antibiotics. On room air. Awaiting placement. Problems addressed as follows: Acute hypoxemic respiratory failure. Resolved Acute metabolic acidosis: likely dehydration, hypoxia KRISTIE: Resolved Patient's urine and blood cultures remain negative. Has been on antibiotics since admission, completed. Hx of NIDDM: on metformin at home. Held accucheck before meals sliding scale Rash concerning for Aby, initiate nystatin powder and barrier cream in region. Heparin for dvt ppx protonix Full code PT and OT working with patient. Case management assisting with decision making capacity/potential guardianship for referral to rehab.
[2024-01-16 15:53] VITALS: BP 145/94; PULSE 99; RESP 19; TEMP 37.1; O2SAT 100
[2024-01-16 16:22] LABS: POC Glucose,Bedside 116 (70-110)
[2024-01-16 19:45] VITALS: BP 147/76; PULSE 110; RESP 16; TEMP 36.6; O2SAT 100
[2024-01-16] MEDS: hydrOXYzine pamoate 25MG CAPSULE 50 MG PO (20:40)
[2024-01-16] MEDS: DOCUSATE SODIUM 100 MG CAPSULE 200 MG PO (20:40)
[2024-01-16] MEDS: FAMOTIDINE 20MG TABLET 20 MG PO (20:40)
[2024-01-17 04:00] VITALS: BP 131/82; PULSE 106; RESP 17; TEMP 37.1; O2SAT 100; BMI 25.6
--- NOTE | 2024-01-17 04:41 | PC.NURSE ---
Pt is alert to self. Pt has tried to exit the bed without assistance, reoriented to asking for help. Pt used bedpan throughout the shift, and incontinent of the brief. Pt had 1 smear diarrhea. Pt has had no complaints of pain. Reminded of turning, can do independently. Excoriation to angel area noted, cleaned and applied cream/powder. Bed alarm on. Call light in reach.
--- NOTE | 2024-01-17 07:38 | EXP.ACUTE.PN ---
Subjective *Date: 01/17/24 *Time: 10:43 Interval history: No events overnight. Was not on exam. On room air. Hemodynamically stable. Medical Exam Vital signs and Labs for Last 24 Hours: Vital Signs Temp Pulse Resp BP Pulse Ox O2 Del Method 01/17/24 06:43 Room Air 01/17/24 05:00 Room Air 01/17/24 04:00 98.8 F 106 H 17 131/82 100 Room Air 01/17/24 03:00 Room Air 01/17/24 01:00 Room Air 01/16/24 23:00 Room Air 01/16/24 21:00 Room Air 01/16/24 20:00 Room Air 01/16/24 19:45 97.9 F 110 H 16 147/76 H 100 Room Air 01/16/24 16:52 Room Air 01/16/24 16:27 Room Air 01/16/24 15:53 98.7 F 99 H 19 145/94 H 100 Room Air 01/16/24 14:14 Room Air 01/16/24 12:37 Room Air 01/16/24 10:03 Room Air 01/16/24 07:56 97.8 F 113 H 22 139/68 100 01/16/24 07:48 Room Air 01/16/24 07:46 Room Air Intake and Output 01/16/24 01/16/24 01/17/24 15:59 23:59 07:59 Intake Total 120 / 360 120 / 360 Output Total 0 / 450 0 / 450 0 / 0 Balance 120 / -90 120 / -90 0 / 0 Intake: Intake, Oral Amount 120 / 360 120 / 360 Output: Output, Urine Amount 0 / 450 0 / 450 0 / 0 Other: Number of Unmeasured Voids 1 2 1 Number of Bowel Movements 2 1 2 Weight 69.808 kg Patient Weight 01/17/24 23:59 Weight 69.808 kg Laboratory Results - last 24 hr 01/16/24 16:15: POC Glucose 116 H I & O for Labs for Last 24 Hours: Intake & Output 01/14/24 01/15/24 01/16/24 01/17/24 23:59 23:59 23:59 23:59 Intake Total 1113 / 2284 3134 / 3134 360 / 360 Output Total 0 / 0 250 / 250 450 / 450 0 / 0 Balance 1113 / 2284 2884 / 2884 - / -90 0 / 0 Weight 71.35 kg 72.206 kg 71.242 kg 69.808 kg Constitutional: Present no acute distress, average body habitus and cooperative Head: Present atraumatic and normocephalic ENT: Present normal exam Respiratory: Present normal respiratory effort; Absent rhonchi, wheezes or crackles Cardiac: Present Reg Rate and Rhythm GI: Present soft and normal bowel sounds; Absent distention or tenderness Comments:: Erythematous rash with satellite lesions in region Extremities: Present normal inspection, full ROM and edema (2+ to knees) Skin: Present intact; Absent erythema Neuro: Present Grossly Intact, alert, awake and moves all extremities Comment:: Oriented to self only Assessment and Plan *Assessment and plan (1) Weakness: Status: Acute Category: Medical Code(s): R53.1 - Weakness (2) Fall: Status: Acute Category: Medical Code(s): W19.XXXA - Unspecified fall, initial encounter (3) Metabolic acidosis: Status: Acute Category: Medical Code(s): E87.20 - Acidosis, unspecified (4) Acute hypoxemic respiratory failure: Status: Acute Category: Medical Code(s): J96.01 - Acute respiratory failure with hypoxia (5) KRISTIE (acute kidney injury): Status: Acute Category: Medical Code(s): N17.9 - Acute kidney failure, unspecified (6) Acute hypokalemia: Status: Acute Category: Medical Code(s): E87.6 - Hypokalemia (7) Acidosis, lactic: Status: Acute Category: Medical Code(s): E87.20 - Acidosis, unspecified (8) Diabetes mellitus, type 2: Status: Acute Qualifiers: 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 brought in by EMS to the emergency department with concern for SOB. EMS reports that patient was found on 2 L nasal cannula saturating only in the 70s, they placed her on 4 L and she improved up to the 90s. She was tachycardic and round with rates in the 110s, blood pressure with systolic of 110. on arrival patient workup with leukocytosis 18,000 with neutrophilia. Her VBG is concerning for metabolic acidosis pH 7.21, CO2 low at 26, bicarb low at 10, lactate 10.4. Patient's potassium on chemistry 3.0, this was repleted with IV potassium. KRISTIE with creatinine 1.7 up from normal baseline. Patient given fluids for this. Initial troponin 0.04, repeat troponin 0.05. LFTs nonactionable. Lipase negative. Urinalysis without concern for UTI. CT of the chest abdomen and pelvis without acute concern for any abnormalities. CT head without intracranial hemorrhage or intracranial abnormality. Findings discussed with ED. Agreed for admission. Patient has been doing well. Completed antibiotics. On room air. Awaiting placement. Problems addressed as follows: Acute hypoxemic respiratory failure. Resolved Acute metabolic acidosis: likely dehydration, hypoxia KRISTIE: Resolved Patient's urine and blood cultures remain negative. completed Abx course Hx of NIDDM: on metformin at home. Held accucheck before meals sliding scale A1C pending CBC, CMP, Mg ordered for the morning Rash concerning for Aby, continue nystatin powder and barrier cream in region. Heparin for dvt ppx protonix Full code PT and OT working with patient. Case management assisting with decision making capacity/potential guardianship for referral to rehab.
[2024-01-17 08:00] VITALS: BP 138/82; PULSE 115; RESP 16; TEMP 36.8; O2SAT 96
[2024-01-17] MEDS: FUROSEMIDE 40 MG TABLET PO (08:39)
[2024-01-17] MEDS: SIMETHICONE 80MG CHEWABLE TABLET 160 MG PO ×3 (08:39→20:45)
[2024-01-17] MEDS: HEPARIN SODIUM 5,000 UNIT/ML VIAL 5000 UNIT SQ ×2 (08:39→20:45)
[2024-01-17] MEDS: ASPIRIN 81MG CHEWABLE TABLET 81 MG PO (08:39)
[2024-01-17] MEDS: LORazepam 0.5MG TABLET 0.5 MG PO ×2 (08:39→20:45)
[2024-01-17] MEDS: METFORMIN 500MG TABLET 500 MG PO ×2 (08:39→17:14)
[2024-01-17] MEDS: MAGNESIUM OXIDE 400MG TABLET 400 MG PO (08:39)
[2024-01-17] MEDS: BUSPIRONE HCL 10 MG TABLET PO ×2 (08:39→20:45)
[2024-01-17] MEDS: POTASSIUM CHLORIDE 20MEQ TAB 40 MEQ PO ×2 (08:40→20:45)
[2024-01-17] MEDS: SERTRALINE 100MG TABLET 100 MG PO (08:40)
[2024-01-17] MEDS: NYSTATIN TOPICAL POWDER 30GM TP ×2 (13:39→20:45)
[2024-01-17 15:59] VITALS: BP 137/78; PULSE 112; RESP 18; TEMP 37.3; O2SAT 100
--- NOTE | 2024-01-17 18:04 | PC.NURSE ---
Patient continues to be confused and only alert to self. Patient refusing to help staff when trying to ambulate patient.
[2024-01-17 20:00] VITALS: BP 149/81; PULSE 110; RESP 16; TEMP 36.9; O2SAT 99
[2024-01-17] MEDS: hydrOXYzine pamoate 25MG CAPSULE 50 MG PO (20:45)
[2024-01-17] MEDS: FAMOTIDINE 20MG TABLET 20 MG PO (20:45)
[2024-01-18 04:00] VITALS: BP 158/82; PULSE 105; RESP 16; TEMP 36.7; O2SAT 94; BMI 24.7
--- NOTE | 2024-01-18 05:20 | PC.NURSE ---
Pt is alert to self. No complaints. Rested well through the night. Incontinent of brief and uses bedpan. Pt does had one episode of diarrhea. Excoriation to angel area, cleaned and medicated powder applied. Bed alarm on. Call light in reach.
[2024-01-18 07:37] VITALS: BP 130/72; PULSE 117; RESP 16; TEMP 37.1; O2SAT 98
--- NOTE | 2024-01-18 07:48 | EXP.ACUTE.PN ---
Subjective *Date: 01/18/24 *Time: 11:04 Interval history: No acute events overnight. Stable on room air. Remains tachycardic this morning. Will initiate metoprolol. Tolerating p.o. intake. Getting up with significant assistance. At baseline mentation Medical Exam Vital signs and Labs for Last 24 Hours: Vital Signs Temp Pulse Resp BP Pulse Ox O2 Del Method 01/18/24 07:37 98.8 F 117 H 16 130/72 98 Room Air 01/18/24 06:51 Room Air 01/18/24 05:00 Room Air 01/18/24 04:00 98.1 F 105 H 16 158/82 H 94 L 01/18/24 02:54 Room Air 01/18/24 00:59 Room Air 01/17/24 23:00 Room Air 01/17/24 21:00 Room Air 01/17/24 20:00 Room Air 01/17/24 20:00 98.5 F 110 H 16 149/81 H 99 01/17/24 15:59 99.2 F 112 H 18 137/78 100 Room Air 01/17/24 09:00 Room Air 01/17/24 08:00 Room Air 01/17/24 08:00 98.3 F 115 H 16 138/82 96 Room Air Intake and Output 01/17/24 01/17/24 01/18/24 15:59 23:59 07:59 Intake Total 120 / 600 360 / 600 Output Total 0 / 0 0 / 0 Balance 120 / 600 360 / 600 Intake: Intake, Oral Amount 120 / 600 360 / 600 Output: Output, Urine Amount 0 / 0 0 / 0 Other: Number of Unmeasured Voids 1 1 1 Number of Bowel Movements 1 Weight 67.54 kg Patient Weight 01/18/24 23:59 Weight 67.54 kg I & O for Labs for Last 24 Hours: Intake & Output 01/15/24 01/16/24 01/17/24 01/18/24 23:59 23:59 23:59 23:59 Intake Total 3134 / 3134 360 / 360 600 / 600 Output Total 250 / 250 450 / 450 0 / 0 Balance 2884 / 2884 -90 / -90 600 / 600 Weight 72.206 kg 71.242 kg 69.808 kg 67.54 kg Microbiology Reports for the Last 24 Hours: Microbiology 01/09/24 15:45 Blood Blood Culture - Final 01/09/24 15:55 Blood Blood Culture - Final Constitutional: Present no acute distress, average body habitus and cooperative Head: Present atraumatic and normocephalic ENT: Present normal exam Respiratory: Present normal respiratory effort; Absent rhonchi, wheezes or crackles Cardiac: Present Reg Rate and Rhythm GI: Present soft and normal bowel sounds; Absent distention or tenderness Comments:: Erythematous rash with satellite lesions in region Extremities: Present normal inspection, full ROM and edema (2+ to knees) Skin: Present intact; Absent erythema Neuro: Present Essential Tremor, Grossly Intact, alert, awake and moves all extremities Comment:: Oriented to self only Assessment and Plan *Assessment and plan (1) Weakness: Status: Acute Category: Medical Code(s): R53.1 - Weakness (2) Fall: Status: Acute Category: Medical Code(s): W19.XXXA - Unspecified fall, initial encounter (3) Metabolic acidosis: Status: Acute Category: Medical Code(s): E87.20 - Acidosis, unspecified (4) Acute hypoxemic respiratory failure: Status: Acute Category: Medical Code(s): J96.01 - Acute respiratory failure with hypoxia (5) KRISTIE (acute kidney injury): Status: Acute Category: Medical Code(s): N17.9 - Acute kidney failure, unspecified (6) Acute hypokalemia: Status: Acute Category: Medical Code(s): E87.6 - Hypokalemia (7) Acidosis, lactic: Status: Acute Category: Medical Code(s): E87.20 - Acidosis, unspecified (8) Diabetes mellitus, type 2: Status: Acute Qualifiers: Diabetes mellitus senior living insulin use: without senior living use Diabetes mellitus complication status: with other specified complication Qualified Code(s): E11.69 - Type 2 diabetes mellitus with other specified complication Category: Medical Code(s): E11.9 - Type 2 diabetes mellitus without complications (9) Candidal dermatitis: Status: Acute Category: Medical Code(s): B37.2 - Candidiasis of skin and nail (10) Hypertension: Status: Acute Category: Medical Code(s): I10 - Essential (primary) hypertension (11) Sinus tachycardia: Status: Acute Category: Medical Code(s): R00.0 - Tachycardia, unspecified Plan 73-year-old female with PMHx of insulin-dependent diabetes, resident from [facility] brought in by EMS to the emergency department with concern for SOB. EMS reports that patient was found on 2 L nasal cannula saturating only in the 70s, they placed her on 4 L and she improved up to the 90s. She was tachycardic and round with rates in the 110s, blood pressure with systolic of 110. on arrival patient workup with leukocytosis 18,000 with neutrophilia. Her VBG is concerning for metabolic acidosis pH 7.21, CO2 low at 26, bicarb low at 10, lactate 10.4. Patient's potassium on chemistry 3.0, this was repleted with IV potassium. KRISTIE with creatinine 1.7 up from normal baseline. Patient given fluids for this. Initial troponin 0.04, repeat troponin 0.05. LFTs nonactionable. Lipase negative. Urinalysis without concern for UTI. CT of the chest abdomen and pelvis without acute concern for any abnormalities. CT head without intracranial hemorrhage or intracranial abnormality. Findings discussed with ED. Agreed for admission. Patient has been doing well. Completed antibiotics. On room air. Awaiting placement. Problems addressed as follows: Acute hypoxemic respiratory failure. Resolved Acute metabolic acidosis: likely dehydration, hypoxia KRISTIE: Resolved Patient's urine and blood cultures remain negative. completed Abx course Hx of NIDDM: A1c normal if not overly controlled at 4.9. Will discontinue Accu-Cheks and metformin. Would recommend not continuing at discharge given how controlled her A1c is. In light of her comorbidities, A1c goal would be less than 8. No further treatment recommended. Labs with white cell count of 6.8, hemoglobin 9.6. Potassium elevated today at 5.4. Will discontinue supplementation. Magnesium 1.6. Increase oral supplementation to twice daily. Kidney function normal with BUN 7, creatinine 0.7. Repeat BMP in the morning to monitor potassium for improvement. Rash concerning for Aby, continue nystatin powder and barrier cream in region. Heparin for dvt ppx protonix Full code PT and OT working with patient. Case management assisting with decision making capacity/potential guardianship for referral to rehab.
[2024-01-18 08:02] LABS: Basophils # 0.1 K/mm3 (0-0.2); Basophils % 0.7 % (0.1-2.0); Eosinophils # 0.2 K/mm3 (0.0-0.4); Eosinophils % 2.7 % (0.1-12.0); Hematocrit 29.4 % (37.0-47.0); Hemoglobin 9.6 g/dL (12.2-16.2); Lymphocytes # 2.8 K/mm3 (0.7-4.5); Mean Corpuscular HGB Conc 32.7 g/dL (31.8-35.4); Mean Corpuscular Hemoglobin 31.9 pg (27.0-31.2); Mean Corpuscular Volume 97.6 fl (81-99); Mean Platelet Volume 9.4 fl (7.4-10.4); Monocytes # 0.6 K/mm3 (0.1-1.0); Monocytes % 8.7 % (1.7-9.3); Neutrophils # 3.1 K/mm3 (1.8-7.8); Neutrophils % 45.9 % (37.0-80.0); Platelet Count 296 K/mm3 (142-424); Red Blood Count 3.01 M/mm3 (4.20-5.40); Red Cell Distribution Width 19.1 % (11.5-17.5); White Blood Count 6.8 K/mm3 (4.8-10.8)
[2024-01-18 08:06] LABS: Chloride 108 mmol/L (98-107); Potassium 5.4 mmoL/L (3.5-5.1); Sodium 133 mmol/L (136-145)
[2024-01-18 08:08] LABS: Blood Urea Nitrogen 7 mg/dl (7-17); Creatinine Clearance Estimated 53 mL/min (50-200); Estimated Glomerular Filt Rate 82 ml/min (>60); GFR (African American) 99 ML/MIN (>60)
[2024-01-18 08:09] LABS: Alanine Aminotransferase 45 U/L (12-78); Albumin Level 2.8 g/dl (3.5-5.0); Albumin/Globulin Ratio 1.2 (1.1-1.8); Alkaline Phosphatase 97 U/L (38-126); Anion Gap 5.4 mEq/L (5-15); Aspartate Amino Transferase 44 U/L (14-36); Bilirubin,Total 0.7 mg/dl (0.2-1.3); Calcium 9.2 mg/dl (8.4-10.2); Carbon Dioxide 25 mmol/L (22.0-30.0); Globulin 2.3 g/dL (1.3-3.2); Glucose 105 mg/dl (74-100); Magnesium 1.6 mg/dl (1.6-2.3); Total Protein,Serum 5.1 g/dl (6.3-8.2)
[2024-01-18] MEDS: SERTRALINE 100MG TABLET 100 MG PO (08:43)
[2024-01-18] MEDS: MAGNESIUM OXIDE 400MG TABLET 400 MG PO ×2 (08:43→20:46)
[2024-01-18] MEDS: METFORMIN 500MG TABLET 500 MG PO (08:43)
[2024-01-18] MEDS: LORazepam 0.5MG TABLET 0.5 MG PO ×2 (08:44→20:46)
[2024-01-18] MEDS: METOPROLOL TARTRATE 25MG TABLET 12.5 MG PO ×2 (08:44→20:46)
[2024-01-18] MEDS: BUSPIRONE HCL 10 MG TABLET PO ×2 (08:44→20:46)
[2024-01-18] MEDS: SIMETHICONE 80MG CHEWABLE TABLET 160 MG PO ×3 (08:44→20:46)
[2024-01-18] MEDS: FUROSEMIDE 40 MG TABLET PO (08:44)
[2024-01-18] MEDS: ASPIRIN 81MG CHEWABLE TABLET 81 MG PO (08:44)
[2024-01-18 08:50] LABS: Hemoglobin A1C 4.9 % (4.0-6.0)
[2024-01-18] MEDS: HEPARIN SODIUM 5,000 UNIT/ML VIAL 5000 UNIT SQ ×2 (09:24→20:45)
[2024-01-18] MEDS: NYSTATIN TOPICAL POWDER 30GM TP ×2 (10:52→20:47)
[2024-01-18 16:00] VITALS: BP 143/68; PULSE 99; RESP 17; TEMP 36.9; O2SAT 100
--- NOTE | 2024-01-18 17:23 | PC.NURSE ---
pt continues to refuse assisting with turns or standing stating i dont want to . angel area remains excoriated as pt is incont of bowel and bladder most of the time, nystatin powder and cream applied. pt has been up in chair all shift. cb within reach and chair alarm on for pt safety.
[2024-01-18 17:49] LABS: POC Glucose,Bedside 132 (70-110)
[2024-01-18 19:44] VITALS: BP 131/72; PULSE 94; RESP 16; TEMP 36.6; O2SAT 98
[2024-01-18] MEDS: hydrOXYzine pamoate 25MG CAPSULE 50 MG PO (20:46)
[2024-01-18] MEDS: FAMOTIDINE 20MG TABLET 20 MG PO (20:46)
[2024-01-19] MEDS: SIMETHICONE 80MG CHEWABLE TABLET 160 MG PO ×4 (02:13→20:38)
[2024-01-19 04:00] VITALS: BP 125/63; PULSE 81; RESP 18; TEMP 36.6; O2SAT 95; BMI 25.1
--- NOTE | 2024-01-19 04:56 | PC.NURSE ---
Pt is alert to self. No complaints. Slept throughout the shift. Incontinent. Bed alarm on. Call light in reach.
[2024-01-19 06:13] LABS: Chloride 105 mmol/L (98-107); Sodium 133 mmol/L (136-145)
[2024-01-19 06:14] LABS: Potassium 4.2 mmoL/L (3.5-5.1)
[2024-01-19 06:16] LABS: Alanine Aminotransferase 38 U/L (12-78); Albumin Level 2.5 g/dl (3.5-5.0); Albumin/Globulin Ratio 1.1 (1.1-1.8); Alkaline Phosphatase 87 U/L (38-126); Anion Gap 1.2 mEq/L (5-15); Aspartate Amino Transferase 39 U/L (14-36); Bilirubin,Total 0.6 mg/dl (0.2-1.3); Blood Urea Nitrogen 10 mg/dl (7-17); Carbon Dioxide 31 mmol/L (22.0-30.0); Creatinine Clearance Estimated 53 mL/min (50-200); Estimated Glomerular Filt Rate 61 ml/min (>60); GFR (African American) 74 ML/MIN (>60); Globulin 2.2 g/dL (1.3-3.2); Total Protein,Serum 4.7 g/dl (6.3-8.2)
[2024-01-19 06:17] LABS: Calcium 9.2 mg/dl (8.4-10.2); Glucose 119 mg/dl (74-100)
[2024-01-19 07:22] VITALS: BP 113/62; PULSE 87; RESP 20; TEMP 36.7; O2SAT 97
[2024-01-19] MEDS: MAGNESIUM OXIDE 400MG TABLET 400 MG PO ×2 (08:42→20:38)
[2024-01-19] MEDS: SERTRALINE 100MG TABLET 100 MG PO (08:42)
[2024-01-19] MEDS: METOPROLOL TARTRATE 25MG TABLET 12.5 MG PO ×2 (08:43→20:39)
[2024-01-19] MEDS: HEPARIN SODIUM 5,000 UNIT/ML VIAL 5000 UNIT SQ ×2 (08:43→20:37)
[2024-01-19] MEDS: BUSPIRONE HCL 10 MG TABLET PO ×2 (08:43→20:38)
[2024-01-19] MEDS: FUROSEMIDE 40 MG TABLET PO (08:43)
[2024-01-19] MEDS: ASPIRIN 81MG CHEWABLE TABLET 81 MG PO (08:43)
[2024-01-19] MEDS: LORazepam 0.5MG TABLET 0.5 MG PO ×2 (08:48→20:43)
[2024-01-19] MEDS: NYSTATIN TOPICAL POWDER 30GM TP ×2 (08:51→20:39)
--- NOTE | 2024-01-19 15:15 | PC.NURSE ---
VS stable, patient remained on room air. Patient alert to self only. Lungs clear on auscultation. Patient had 1 very loose brown bowel movement. Nystatin and paste reapplied to angel area on excoriation. Patient up to chair during shift.
--- NOTE | 2024-01-19 15:55 | P.PN_ITS ---
Subjective *Date: 01/19/24 *Time: 15:55 Interval history: seen at bedside, alert awake, holding conversations, having breakfast, denied CP, SOB, N/V Exam Data for Last 24 hours Vital signs and Labs for Last 24 Hours: Temp Pulse Resp BP Pulse Ox O2 Del Method O2 Flow Rate 98.1 F 87 20 113/62 97 Room Air 3.5 01/19/24 07:22 01/19/24 07:22 01/19/24 07:22 01/19/24 07:22 01/19/24 07:22 01/19/24 15:00 01/11/24 00:00 Laboratory Results - last 24 hr 01/18/24 17:40: POC Glucose 132 H 01/19/24 05:45: Sodium 133 L, Potassium 4.2 D, Chloride 105, Carbon Dioxide 31 H, Anion Gap 1.2 L, BUN 10 D, Creatinine 0.90 D, Estimated Creat Clear 53, Estimated GFR 61, Est GFR ( Amer) 74 D, Glucose 119 H, Calcium 9.2, Total Bilirubin 0.6, AST 39 H, ALT 38, Alkaline Phosphatase 87, Total Protein 4.7 L, Albumin 2.5 L D, Globulin 2.2, Albumin/Globulin Ratio 1.1 I & O for Last 24 hours: Intake & Output 01/16/24 01/17/24 01/18/24 01/19/24 23:59 23:59 23:59 23:59 Intake Total 360 / 360 600 / 600 750 / 870 510 / 510 Output Total 450 / 450 0 / 0 0 / 0 0 / 0 Balance -90 / -90 600 / 600 750 / 870 510 / 510 Weight 71.242 kg 69.808 kg 67.54 kg 68.492 kg Microbiology Reports for the Last 24 Hours: Microbiology 01/14/24 06:50 Stool Salmonella/Shigella Screen - Final 01/14/24 06:50 Stool - Final 01/14/24 06:50 Stool - Final 01/14/24 06:50 Stool - Final 01/14/24 06:50 Stool - Final Constitutional Constitutional: no acute distress *Routine HEENT Exam Head: Present normocephalic Eye: Present EOMI and PERRL ENT: Present mucous membranes moist *Routine Neck Exam Neck: Present supple; Absent lymphadenopathy *Routine Respiratory Exam Respiratory: Present CTA bilaterally *Routine Cardiovascular Exam Cardiovascular: Present RRR *Routine Abdominal Exam Abdominal: Present soft and normoactive bowel sounds; Absent tenderness *Routine Extremities Exam Extremities: Absent cyanosis, clubbing or edema *Routine Skin Exam Skin: Present warm; Absent rash *Routine Neurological Exam Neurological: Present alert and oriented X3 Assessment and Plan *Assessment and plan (1) Weakness: Status: Acute Category: Medical Code(s): R53.1 - Weakness (2) Fall: Status: Acute Category: Medical Code(s): W19.XXXA - Unspecified fall, initial encounter (3) Metabolic acidosis: Status: Acute Category: Medical Code(s): E87.20 - Acidosis, unspecified (4) Acute hypoxemic respiratory failure: Status: Acute Category: Medical Code(s): J96.01 - Acute respiratory failure with hypoxia (5) KRISTIE (acute kidney injury): Status: Acute Category: Medical Code(s): N17.9 - Acute kidney failure, unspecified (6) Acute hypokalemia: Status: Acute Category: Medical Code(s): E87.6 - Hypokalemia (7) Acidosis, lactic: Status: Acute Category: Medical Code(s): E87.20 - Acidosis, unspecified (8) Diabetes mellitus, type 2: Status: Acute Qualifiers: Diabetes mellitus tank terminal gauger insulin use: without tank terminal gauger use Diabetes mellitus complication status: with other specified complication Qualified Code(s): E11.69 - Type 2 diabetes mellitus with other specified complication Category: Medical Code(s): E11.9 - Type 2 diabetes mellitus without complications (9) Candidal dermatitis: Status: Acute Category: Medical Code(s): B37.2 - Candidiasis of skin and nail (10) Hypertension: Status: Acute Category: Medical Code(s): I10 - Essential (primary) hypertension (11) Sinus tachycardia: Status: Acute Category: Medical Code(s): R00.0 - Tachycardia, unspecified Plan 73-year-old female with PMHx of insulin-dependent diabetes, resident from [facility] brought in by EMS to the emergency department with concern for SOB. EMS reports that patient was found on 2 L nasal cannula saturating only in the 70s, they placed her on 4 L and she improved up to the 90s. She was tachycardic and round with rates in the 110s, blood pressure with systolic of 110. on arrival patient workup with leukocytosis 18,000 with neutrophilia. Her VBG is concerning for metabolic acidosis pH 7.21, CO2 low at 26, bicarb low at 10, lactate 10.4. Patient's potassium on chemistry 3.0, this was repleted with IV potassium. KRISTIE with creatinine 1.7 up from normal baseline. Patient given fluids for this. Initial troponin 0.04, repeat troponin 0.05. LFTs nonactionable. Lipase negative. Urinalysis without concern for UTI. CT of the chest abdomen and pelvis without acute concern for any abnormalities. CT head without intracranial hemorrhage or intracranial abnormality. Findings discussed with ED. Agreed for admission. Patient has been doing well. Completed antibiotics. On room air. Awaiting placement. Problems addressed as follows: Acute hypoxemic respiratory failure. Resolved Acute metabolic acidosis: likely dehydration, hypoxia KRISTIE: Resolved Patient's urine and blood cultures remain negative. completed Abx course Hx of NIDDM: A1c normal if not overly controlled at 4.9. Will discontinue Accu- Cheks and metformin. Would recommend not continuing at discharge given how controlled her A1c is. In light of her comorbidities, A1c goal would be less than 8. No further treatment recommended. Rash concerning for Aby, continue nystatin powder and barrier cream in region. Heparin for dvt ppx protonix Full code PT and OT working with patient. Case management assisting with decision making capacity/potential guardianship for referral to rehab. Awaiting placement, continue current management
[2024-01-19 16:00] VITALS: BP 140/68; PULSE 85; RESP 24; TEMP 36.6; O2SAT 95
[2024-01-19 20:27] VITALS: BP 126/67; PULSE 90; RESP 18; TEMP 36.8; O2SAT 100
[2024-01-19] MEDS: FAMOTIDINE 20MG TABLET 20 MG PO (20:38)
[2024-01-19] MEDS: hydrOXYzine pamoate 25MG CAPSULE 50 MG PO (20:38)
[2024-01-20] VITALS: BP 123/74; PULSE 83; RESP 16; TEMP 36.7; O2SAT 99
[2024-01-20] MEDS: SIMETHICONE 80MG CHEWABLE TABLET 160 MG PO ×3 (01:45→22:04)
[2024-01-20 04:00] VITALS: BP 116/54; PULSE 94; RESP 18; TEMP 36.9; O2SAT 99; BMI 25.4
--- NOTE | 2024-01-20 04:13 | PC.NURSE ---
Pt abdomen distended, does not complain of any discomfort when palpated. Bladder scanned, showed 1000. Call Katerin IRWIN, in and out cath. Order carried out, 1250 out.
--- NOTE | 2024-01-20 05:25 | PC.NURSE ---
Pt alert to self. Incontinent of brief and has used bedpan one time. Since in/out cath, pt abdomen soft on palpation. Pt has rested throughout the night with no complaints. Bed alarm on. Call light in reach.
[2024-01-20 07:25] VITALS: BP 146/71; PULSE 99; RESP 20; TEMP 36.8; O2SAT 99
[2024-01-20] MEDS: MAGNESIUM OXIDE 400MG TABLET 400 MG PO ×2 (08:21→22:07)
[2024-01-20] MEDS: TAMSULOSIN 0.4MG CAPSULE 0.4 MG PO ×2 (08:21→22:08)
[2024-01-20] MEDS: METOPROLOL TARTRATE 25MG TABLET 12.5 MG PO ×2 (08:21→22:07)
[2024-01-20] MEDS: SERTRALINE 100MG TABLET 100 MG PO (08:21)
[2024-01-20] MEDS: BUSPIRONE HCL 10 MG TABLET PO ×2 (08:21→22:05)
[2024-01-20] MEDS: HEPARIN SODIUM 5,000 UNIT/ML VIAL 5000 UNIT SQ ×2 (08:21→22:05)
[2024-01-20] MEDS: LORazepam 0.5MG TABLET 0.5 MG PO ×2 (08:21→22:06)
[2024-01-20] MEDS: FUROSEMIDE 40 MG TABLET PO (08:21)
[2024-01-20] MEDS: ASPIRIN 81MG CHEWABLE TABLET 81 MG PO (08:24)
[2024-01-20] MEDS: NYSTATIN TOPICAL POWDER 30GM TP (08:24)
--- NOTE | 2024-01-20 10:09 | EXP.ACUTE.PN ---
Subjective *Date: 01/20/24 *Time: 11:07 Interval history: Found to have a distended abdomen overnight. On exam, had no significant pain. Bladder scan however showed over a liter of urine. In-N-Out cath produced over a liter of output. Patient was then able to void. Monitoring for continued urine output today. Stable on room air. Tolerating p.o. intake. Working with therapy. APS evaluated patient yesterday. Medical Exam Vital signs and Labs for Last 24 Hours: Vital Signs Temp Pulse Resp BP Pulse Ox O2 Del Method 01/20/24 09:51 Room Air 01/20/24 08:30 Room Air 01/20/24 08:00 Room Air 01/20/24 07:25 98.3 F 99 H 20 146/71 H 99 Room Air 01/20/24 06:48 Room Air 01/20/24 04:57 Room Air 01/20/24 04:00 98.5 F 94 H 18 116/54 L 99 Room Air 01/20/24 03:00 Room Air 01/20/24 00:49 Room Air 01/20/24 00:00 98.0 F 83 16 123/74 99 Room Air 01/19/24 23:00 Room Air 01/19/24 21:00 Room Air 01/19/24 20:27 98.3 F 90 18 126/67 100 Room Air 01/19/24 20:00 Room Air 01/19/24 18:55 Room Air 01/19/24 17:15 Room Air 01/19/24 16:00 97.8 F 85 24 140/68 95 Room Air 01/19/24 15:00 Room Air 01/19/24 13:00 Room Air 01/19/24 11:00 Room Air Intake and Output 01/19/24 01/20/24 01/20/24 23:59 07:59 15:59 Intake Total 270 / 960 180 / 180 Output Total 0 / 0 1250 / 1250 Balance 270 / 960 -1070 / -1070 Intake: Intake, Oral Amount 270 / 960 180 / 180 Output: Output, Urine Amount 0 / 0 1250 / 1250 Other: Number of Voids 0 Number of Unmeasured Voids 1 Number of Bowel Movements 1 1 Weight 69.173 kg Patient Weight 01/20/24 23:59 Weight 69.173 kg I & O for Labs for Last 24 Hours: Intake & Output 01/17/24 01/18/24 01/19/24 01/20/24 23:59 23:59 23:59 23:59 Intake Total 600 / 600 750 / 870 780 / 960 180 / 180 Output Total 0 / 0 0 / 0 0 / 0 1250 / 1250 Balance 600 / 600 750 / 870 780 / 960 -1070 / -1070 Weight 69.808 kg 67.54 kg 68.492 kg 69.173 kg Microbiology Reports for the Last 24 Hours: Microbiology 01/14/24 06:50 Stool Salmonella/Shigella Screen - Final 01/14/24 06:50 Stool - Final 01/14/24 06:50 Stool - Final 01/14/24 06:50 Stool - Final 01/14/24 06:50 Stool - Final Constitutional: Present no acute distress, average body habitus and cooperative Head: Present atraumatic and normocephalic ENT: Present normal exam Respiratory: Present normal respiratory effort; Absent rhonchi, wheezes or crackles Cardiac: Present Reg Rate and Rhythm GI: Present soft and normal bowel sounds; Absent distention or tenderness Comments:: Erythematous rash with satellite lesions in region Extremities: Present normal inspection, full ROM and edema (1+ to knees) Skin: Present intact; Absent erythema Neuro: Present Essential Tremor, Grossly Intact, alert, awake and moves all extremities Comment:: Oriented to self only Assessment and Plan *Assessment and plan (1) Weakness: Status: Acute Category: Medical Code(s): R53.1 - Weakness (2) Fall: Status: Acute Category: Medical Code(s): W19.XXXA - Unspecified fall, initial encounter (3) Metabolic acidosis: Status: Acute Category: Medical Code(s): E87.20 - Acidosis, unspecified (4) Acute hypoxemic respiratory failure: Status: Acute Category: Medical Code(s): J96.01 - Acute respiratory failure with hypoxia (5) KRISTIE (acute kidney injury): Status: Acute Category: Medical Code(s): N17.9 - Acute kidney failure, unspecified (6) Acute hypokalemia: Status: Acute Category: Medical Code(s): E87.6 - Hypokalemia (7) Acidosis, lactic: Status: Acute Category: Medical Code(s): E87.20 - Acidosis, unspecified (8) Diabetes mellitus, type 2: Status: Acute Qualifiers: Diabetes mellitus ferry terminal supervisor insulin use: without snf use Diabetes mellitus complication status: with other specified complication Qualified Code(s): E11.69 - Type 2 diabetes mellitus with other specified complication Category: Medical Code(s): E11.9 - Type 2 diabetes mellitus without complications (9) Candidal dermatitis: Status: Acute Category: Medical Code(s): B37.2 - Candidiasis of skin and nail (10) Hypertension: Status: Acute Category: Medical Code(s): I10 - Essential (primary) hypertension (11) Sinus tachycardia: Status: Acute Category: Medical Code(s): R00.0 - Tachycardia, unspecified Plan 73-year-old female with PMHx of insulin-dependent diabetes, resident from [facility] brought in by EMS to the emergency department with concern for SOB. EMS reports that patient was found on 2 L nasal cannula saturating only in the 70s, they placed her on 4 L and she improved up to the 90s. She was tachycardic and round with rates in the 110s, blood pressure with systolic of 110. on arrival patient workup with leukocytosis 18,000 with neutrophilia. Her VBG is concerning for metabolic acidosis pH 7.21, CO2 low at 26, bicarb low at 10, lactate 10.4. Patient's potassium on chemistry 3.0, this was repleted with IV potassium. KRISTIE with creatinine 1.7 up from normal baseline. Patient given fluids for this. Initial troponin 0.04, repeat troponin 0.05. LFTs nonactionable. Lipase negative. Urinalysis without concern for UTI. CT of the chest abdomen and pelvis without acute concern for any abnormalities. CT head without intracranial hemorrhage or intracranial abnormality. Findings discussed with ED. Agreed for admission. Patient medically stable for placement once guardianship established. APS evaluating and working with case management. Monitoring urinary retention for possible Chowdary placement. Problems addressed as follows: Acute hypoxemic respiratory failure. Resolved Acute metabolic acidosis: likely dehydration, hypoxia KRISTIE: Resolved Patient's urine and blood cultures remain negative. completed Abx course Urinary retention: Over a liter of output last night with In-N-Out cath. Will obtain a postvoid residual this afternoon. If greater than 500, will place Chowdary catheter. Initiated tamsulosin 0.4 mg twice daily to aid with independent voiding. Hx of NIDDM: A1c normal if not overly controlled at 4.9. Will discontinue Accu-Cheks and metformin. Would recommend not continuing at discharge given how controlled her A1c is. In light of her comorbidities, A1c goal would be less than 8. No further treatment recommended. Rash concerning for Aby, continue nystatin powder and barrier cream in region. Heparin for dvt ppx protonix Full code PT and OT working with patient. Case management assisting with decision making capacity/potential guardianship for referral to rehab.
--- NOTE | 2024-01-20 11:57 | PC.NURSE ---
Pt. bladder scanned with 976 ml... pt now up with assist times 2 to bsc.
--- NOTE | 2024-01-20 12:14 | PC.NURSE ---
300 ml out of urine when assisted to the bsc.
[2024-01-20] MEDS: ERGOCALCIFEROL 50,000 UNITS (1.25MG) CAPSULE 50000 UNIT PO (14:01)
--- NOTE | 2024-01-20 14:56 | PC.NURSE ---
Aox 1 with confusion, up with max assist times 2, 90's on RA, awaiting placement.
[2024-01-20 15:23] VITALS: BP 116/55; PULSE 92; RESP 18; TEMP 37; O2SAT 100
[2024-01-20] MEDS: ACETAMINOPHEN 325MG TAB 650 MG PO (16:01)
[2024-01-20 16:10] LABS: POC Glucose,Bedside 222 (70-110)
--- NOTE | 2024-01-20 17:50 | PC.NURSE ---
Pt. states she tried to urinate but couldn't. F/C 16F PLACED with 1,000 ml emptied.
[2024-01-20] MEDS: humaLOG 100 UNITS/ML 3ML VIAL (SSI) 9 UNIT SQ (18:16)
[2024-01-20 20:00] VITALS: BP 111/56; PULSE 94; RESP 18; TEMP 36.6; O2SAT 100
[2024-01-20] MEDS: FAMOTIDINE 20MG TABLET 20 MG PO (22:05)
[2024-01-20] MEDS: hydrOXYzine pamoate 25MG CAPSULE 50 MG PO (22:05)
[2024-01-20] MEDS: ZINC OXIDE OINTMENT 28GM TUBE TP (22:09)
[2024-01-21] MEDS: NYSTATIN TOPICAL POWDER 30GM TP ×3 (00:30→20:11)
[2024-01-21 01:16] LABS: Microscopic, Urine URINE MICROSCOPIC (MICROSCOPIC)
[2024-01-21 01:17] LABS: Bilirubin,Urine Negative (Negative); Blood, Urine 2+ (Negative); Color,Urine YELLOW (Yellow); Glucose,Urine (UA) Negative (Negative); Ketones,Urine Negative (Negative); Leukocyte Esterase,Urine TRACE (Negative); Nitrate,Urine Negative (Negative); Protein,Urine TRACE (Negative); Specific Gravity, Urine 1.015 (1.005-1.030); Urobilinogen,Urine 0.2 EU/dl (0.2)
[2024-01-21 01:20] LABS: Appearance,Urine Slightly Cloudy (Clear)
[2024-01-21 01:29] LABS: Bacteria,Urine Trace /lpf; Hyaline Casts,Urine Occasional #/lpf (0); Mucus,Urine 1+ /lpf
[2024-01-21 04:00] VITALS: BP 94/66; PULSE 100; RESP 16; TEMP 36.6; O2SAT 95; BMI 25.4
[2024-01-21 06:35] LABS: Basophils % 0.8 % (0.1-2.0); Eosinophils # 0.1 K/mm3 (0.0-0.4); Eosinophils % 2.8 % (0.1-12.0); Hematocrit 28.1 % (37.0-47.0); Lymphocytes # 2.3 K/mm3 (0.7-4.5); Lymphocytes % 56.3 % (10-50); Mean Corpuscular HGB Conc 32.1 g/dL (31.8-35.4); Mean Corpuscular Hemoglobin 32.1 pg (27.0-31.2); Mean Corpuscular Volume 99.9 fl (81-99); Mean Platelet Volume 7.8 fl (7.4-10.4); Monocytes # 0.3 K/mm3 (0.1-1.0); Monocytes % 8.2 % (1.7-9.3); Neutrophils # 1.3 K/mm3 (1.8-7.8); Neutrophils % 31.9 % (37.0-80.0); Platelet Count 262 K/mm3 (142-424); Red Blood Count 2.81 M/mm3 (4.20-5.40); Red Cell Distribution Width 18.6 % (11.5-17.5); White Blood Count 4.1 K/mm3 (4.8-10.8)
[2024-01-21 06:45] LABS: MANUAL DIFFERENTIAL MANUAL DIFFERENTIAL (MANUAL DIFF)
[2024-01-21 06:46] LABS: Anion Gap 4.7 mEq/L (5-15); Blood Urea Nitrogen 17 mg/dl (7-17); Calcium 8.7 mg/dl (8.4-10.2); Carbon Dioxide 30 mmol/L (22.0-30.0); Chloride 104 mmol/L (98-107); Creatinine Clearance Estimated 54 mL/min (50-200); Estimated Glomerular Filt Rate 61 ml/min (>60); GFR (African American) 74 ML/MIN (>60); Glucose 124 mg/dl (74-100); Magnesium 1.5 mg/dl (1.6-2.3); Potassium 3.7 mmoL/L (3.5-5.1); Sodium 135 mmol/L (136-145)
[2024-01-21 08:00] VITALS: BP 139/68; PULSE 100; RESP 20; TEMP 36.9; O2SAT 98
[2024-01-21] MEDS: METOPROLOL TARTRATE 25MG TABLET 12.5 MG PO ×2 (08:43→20:05)
[2024-01-21] MEDS: SIMETHICONE 80MG CHEWABLE TABLET 160 MG PO ×3 (08:43→20:05)
[2024-01-21] MEDS: MAGNESIUM OXIDE 400MG TABLET 400 MG PO ×2 (08:43→20:04)
[2024-01-21] MEDS: TAMSULOSIN 0.4MG CAPSULE 0.4 MG PO ×2 (08:43→20:04)
[2024-01-21] MEDS: HEPARIN SODIUM 5,000 UNIT/ML VIAL 5000 UNIT SQ ×2 (08:43→20:04)
[2024-01-21] MEDS: BUSPIRONE HCL 10 MG TABLET PO ×2 (08:43→20:05)
[2024-01-21] MEDS: ASPIRIN 81MG CHEWABLE TABLET 81 MG PO (08:43)
[2024-01-21] MEDS: SERTRALINE 100MG TABLET 100 MG PO (08:44)
[2024-01-21] MEDS: FUROSEMIDE 40 MG TABLET PO (08:44)
[2024-01-21] MEDS: LORazepam 0.5MG TABLET 0.5 MG PO ×2 (08:44→20:04)
[2024-01-21 10:19] LABS: Eosinophils % 5 % (0-3); Lymphocytes % 60 % (10-50); Monocytes % 8 % (2-9); Neutrophils % 26 % (42-76); Total Cells Counted 100
[2024-01-21 10:36] LABS: Anisocytosis 1+; Hypochromasia 2+; Platelet Estimate Normal
[2024-01-21 10:37] LABS: Macrocytosis 1+
[2024-01-21 15:30] VITALS: BP 93/46; PULSE 67; RESP 18; TEMP 36.7; O2SAT 98
--- NOTE | 2024-01-21 18:35 | PC.NURSE ---
Patient continues to be confused. VSS and patient has had good uop
[2024-01-21 20:00] VITALS: BP 115/57; PULSE 92; RESP 18; TEMP 36.6; O2SAT 97
[2024-01-21] MEDS: FAMOTIDINE 20MG TABLET 20 MG PO (20:04)
[2024-01-21] MEDS: hydrOXYzine pamoate 25MG CAPSULE 50 MG PO (20:04)
[2024-01-22 04:00] VITALS: BP 106/44; PULSE 97; RESP 18; TEMP 37; O2SAT 98; BMI 25.0
--- NOTE | 2024-01-22 05:10 | PC.NURSE ---
Addendum entered by Laurel Olea RN 01/22/24 06:43: RN and both techs attempted to get patient up in the chair for breakfast. Patient adamant that she was not getting up and kept laying back down refusing to get up. RN tried to encourage patient to get up to get stronger but patient refused and laid back down. Original Note: Patient has had a good night. slept most of it. No acute changes through the shift
[2024-01-22 07:21] VITALS: BP 112/63; PULSE 95; RESP 18; TEMP 36.9; O2SAT 95
--- NOTE | 2024-01-22 08:14 | EXP.PN ---
Subjective *Date: 01/21/24 *Time: 08:14 Interval history: seen at bedside, alert awake, holding conversations, having breakfast, denied CP, SOB, N/V Exam Data for Last 24 hours Vital signs and Labs for Last 24 Hours: Temp Pulse Resp BP Pulse Ox O2 Del Method O2 Flow Rate 98.5 F 95 H 18 112/63 95 Room Air 3.5 01/22/24 07:21 01/22/24 07:21 01/22/24 07:21 01/22/24 07:21 01/22/24 07:21 01/22/24 07:21 01/11/24 00:00 Laboratory Results - last 24 hr 01/21/24 06:10: Total Counted 100, Neutrophils % (Manual) 26 L, Lymphocytes % (Manual) 60 H, Monocytes % (Manual) 8, Eosinophils % (Manual) 5 H, Metamyelocytes % 1.0, Platelet Estimate Normal, Hypochromasia 2+, Anisocytosis 1+, Macrocytosis 1+ I & O for Last 24 hours: Intake & Output 01/19/24 01/20/24 01/21/24 01/22/24 23:59 23:59 23:59 23:59 Intake Total 780 / 960 670 / 790 980 / 1080 100 / 100 Output Total 0 / 0 1550 / 1550 1325 / 1325 1400 / 1400 Balance 780 / 960 -880 / -760 -345 / -245 -1300 / -1300 Weight 68.492 kg 69.173 kg 69.218 kg 68.311 kg Constitutional Constitutional: no acute distress *Routine HEENT Exam Head: Present normocephalic Eye: Present EOMI and PERRL ENT: Present mucous membranes moist *Routine Neck Exam Neck: Present supple; Absent lymphadenopathy *Routine Respiratory Exam Respiratory: Present CTA bilaterally *Routine Cardiovascular Exam Cardiovascular: Present RRR *Routine Abdominal Exam Abdominal: Present soft and normoactive bowel sounds; Absent tenderness *Routine Extremities Exam Extremities: Absent cyanosis, clubbing or edema *Routine Skin Exam Skin: Present warm; Absent rash *Routine Neurological Exam Neurological: Present alert and oriented X3 Assessment and Plan *Assessment and plan (1) Weakness: Status: Acute Category: Medical Code(s): R53.1 - Weakness (2) Fall: Status: Acute Category: Medical Code(s): W19.XXXA - Unspecified fall, initial encounter (3) Metabolic acidosis: Status: Acute Category: Medical Code(s): E87.20 - Acidosis, unspecified (4) Acute hypoxemic respiratory failure: Status: Acute Category: Medical Code(s): J96.01 - Acute respiratory failure with hypoxia (5) KRISTIE (acute kidney injury): Status: Acute Category: Medical Code(s): N17.9 - Acute kidney failure, unspecified (6) Acute hypokalemia: Status: Acute Category: Medical Code(s): E87.6 - Hypokalemia (7) Acidosis, lactic: Status: Acute Category: Medical Code(s): E87.20 - Acidosis, unspecified (8) Diabetes mellitus, type 2: Status: Acute Qualifiers: Diabetes mellitus ferry terminal supervisor insulin use: without ferry terminal supervisor use Diabetes mellitus complication status: with other specified complication Qualified Code(s): E11.69 - Type 2 diabetes mellitus with other specified complication Category: Medical Code(s): E11.9 - Type 2 diabetes mellitus without complications (9) Candidal dermatitis: Status: Acute Category: Medical Code(s): B37.2 - Candidiasis of skin and nail (10) Hypertension: Status: Acute Category: Medical Code(s): I10 - Essential (primary) hypertension (11) Sinus tachycardia: Status: Acute Category: Medical Code(s): R00.0 - Tachycardia, unspecified Plan 73-year-old female with PMHx of insulin-dependent diabetes, resident from [facility] brought in by EMS to the emergency department with concern for SOB. EMS reports that patient was found on 2 L nasal cannula saturating only in the 70s, they placed her on 4 L and she improved up to the 90s. She was tachycardic and round with rates in the 110s, blood pressure with systolic of 110. on arrival patient workup with leukocytosis 18,000 with neutrophilia. Her VBG is concerning for metabolic acidosis pH 7.21, CO2 low at 26, bicarb low at 10, lactate 10.4. Patient's potassium on chemistry 3.0, this was repleted with IV potassium. KRISTIE with creatinine 1.7 up from normal baseline. Patient given fluids for this. Initial troponin 0.04, repeat troponin 0.05. LFTs nonactionable. Lipase negative. Urinalysis without concern for UTI. CT of the chest abdomen and pelvis without acute concern for any abnormalities. CT head without intracranial hemorrhage or intracranial abnormality. Findings discussed with ED. Agreed for admission. Patient has been doing well. Completed antibiotics. On room air. Awaiting placement. Problems addressed as follows: Acute hypoxemic respiratory failure. Resolved Acute metabolic acidosis: likely dehydration, hypoxia KRISTIE: Resolved Patient's urine and blood cultures remain negative. completed Abx course Hx of NIDDM: A1c normal if not overly controlled at 4.9. Will discontinue Accu-Cheks and metformin. Would recommend not continuing at discharge given how controlled her A1c is. In light of her comorbidities, A1c goal would be less than 8. No further treatment recommended. Rash concerning for Aby, continue nystatin powder and barrier cream in region. Heparin for dvt ppx protonix Full code PT and OT working with patient. Case management assisting with decision making capacity/potential guardianship for referral to rehab. Awaiting placement, continue current management, no change in plan today 01/21/2024
[2024-01-22] MEDS: HEPARIN SODIUM 5,000 UNIT/ML VIAL 5000 UNIT SQ ×2 (08:25→20:57)
[2024-01-22] MEDS: ASPIRIN 81MG CHEWABLE TABLET 81 MG PO (08:26)
[2024-01-22] MEDS: SIMETHICONE 80MG CHEWABLE TABLET 160 MG PO ×2 (08:26→20:57)
[2024-01-22] MEDS: FUROSEMIDE 40 MG TABLET PO (08:26)
[2024-01-22] MEDS: MAGNESIUM OXIDE 400MG TABLET 400 MG PO ×2 (08:26→20:57)
[2024-01-22] MEDS: BUSPIRONE HCL 10 MG TABLET PO ×2 (08:26→20:57)
[2024-01-22] MEDS: TAMSULOSIN 0.4MG CAPSULE 0.4 MG PO ×2 (08:26→20:57)
[2024-01-22] MEDS: LORazepam 0.5MG TABLET 0.5 MG PO ×2 (08:26→20:59)
[2024-01-22] MEDS: SERTRALINE 100MG TABLET 100 MG PO (08:26)
[2024-01-22] MEDS: METOPROLOL TARTRATE 25MG TABLET 12.5 MG PO ×2 (08:26→20:57)
[2024-01-22] MEDS: NYSTATIN TOPICAL POWDER 30GM TP ×2 (08:28→21:04)
[2024-01-22 15:45] VITALS: BP 104/48; PULSE 95; RESP 18; TEMP 36.9; O2SAT 97
--- NOTE | 2024-01-22 15:51 | EXP.PN ---
Subjective *Date: 01/22/24 *Time: 15:51 Interval history: patient is seen and evaluated at bedside, denied CP, resting in bed, on RA Exam Data for Last 24 hours Vital signs and Labs for Last 24 Hours: Temp Pulse Resp BP Pulse Ox O2 Del Method O2 Flow Rate 98.4 F 95 H 18 104/48 L 97 Room Air 3.5 01/22/24 15:45 01/22/24 15:45 01/22/24 15:45 01/22/24 15:45 01/22/24 15:45 01/22/24 15:45 01/11/24 00:00 I & O for Last 24 hours: Intake & Output 01/19/24 01/20/24 01/21/24 01/22/24 23:59 23:59 23:59 23:59 Intake Total 780 / 960 670 / 790 980 / 1080 580 / 580 Output Total 0 / 0 1550 / 1550 1325 / 1325 2400 / 2400 Balance 780 / 960 -880 / -760 -345 / -245 -1820 / -1820 Weight 68.492 kg 69.173 kg 69.218 kg 68.311 kg Constitutional Constitutional: no acute distress *Routine HEENT Exam Head: Present normocephalic Eye: Present EOMI and PERRL ENT: Present mucous membranes moist *Routine Neck Exam Neck: Present supple; Absent lymphadenopathy *Routine Respiratory Exam Respiratory: Present CTA bilaterally *Routine Cardiovascular Exam Cardiovascular: Present RRR *Routine Abdominal Exam Abdominal: Present soft and normoactive bowel sounds; Absent tenderness *Routine Extremities Exam Extremities: Absent cyanosis, clubbing or edema *Routine Skin Exam Skin: Present warm; Absent rash *Routine Neurological Exam Neurological: Present alert and oriented X3 Assessment and Plan *Assessment and plan (1) Weakness: Status: Acute Category: Medical Code(s): R53.1 - Weakness (2) Fall: Status: Acute Category: Medical Code(s): W19.XXXA - Unspecified fall, initial encounter (3) Metabolic acidosis: Status: Acute Category: Medical Code(s): E87.20 - Acidosis, unspecified (4) Acute hypoxemic respiratory failure: Status: Acute Category: Medical Code(s): J96.01 - Acute respiratory failure with hypoxia (5) KRISTIE (acute kidney injury): Status: Acute Category: Medical Code(s): N17.9 - Acute kidney failure, unspecified (6) Acute hypokalemia: Status: Acute Category: Medical Code(s): E87.6 - Hypokalemia (7) Acidosis, lactic: Status: Acute Category: Medical Code(s): E87.20 - Acidosis, unspecified (8) Diabetes mellitus, type 2: Status: Acute Qualifiers: Diabetes mellitus senior care insulin use: without senior care use Diabetes mellitus complication status: with other specified complication Qualified Code(s): E11.69 - Type 2 diabetes mellitus with other specified complication Category: Medical Code(s): E11.9 - Type 2 diabetes mellitus without complications (9) Candidal dermatitis: Status: Acute Category: Medical Code(s): B37.2 - Candidiasis of skin and nail (10) Hypertension: Status: Acute Category: Medical Code(s): I10 - Essential (primary) hypertension (11) Sinus tachycardia: Status: Acute Category: Medical Code(s): R00.0 - Tachycardia, unspecified Plan 73-year-old female with PMHx of insulin-dependent diabetes, resident from [facility] brought in by EMS to the emergency department with concern for SOB. EMS reports that patient was found on 2 L nasal cannula saturating only in the 70s, they placed her on 4 L and she improved up to the 90s. She was tachycardic and round with rates in the 110s, blood pressure with systolic of 110. on arrival patient workup with leukocytosis 18,000 with neutrophilia. Her VBG is concerning for metabolic acidosis pH 7.21, CO2 low at 26, bicarb low at 10, lactate 10.4. Patient's potassium on chemistry 3.0, this was repleted with IV potassium. KRISTIE with creatinine 1.7 up from normal baseline. Patient given fluids for this. Initial troponin 0.04, repeat troponin 0.05. LFTs nonactionable. Lipase negative. Urinalysis without concern for UTI. CT of the chest abdomen and pelvis without acute concern for any abnormalities. CT head without intracranial hemorrhage or intracranial abnormality. Findings discussed with ED. Agreed for admission. Patient has been doing well. Completed antibiotics. On room air. Awaiting placement. Problems addressed as follows: Acute hypoxemic respiratory failure. Resolved Acute metabolic acidosis: likely dehydration, hypoxia KRISTIE: Resolved Patient's urine and blood cultures remain negative. completed Abx course Hx of NIDDM: A1c normal if not overly controlled at 4.9. Will discontinue Accu-Cheks and metformin. Would recommend not continuing at discharge given how controlled her A1c is. In light of her comorbidities, A1c goal would be less than 8. No further treatment recommended. Rash concerning for Aby, continue nystatin powder and barrier cream in region. Heparin for dvt ppx protonix Full code PT and OT working with patient. Case management assisting with decision making capacity/potential guardianship for referral to rehab. Awaiting placement, continue current management, no change in plan today 01/22/2024
[2024-01-22 17:51] LABS: POC Glucose,Bedside 197 (70-110)
--- NOTE | 2024-01-22 18:49 | PC.NURSE ---
Patient confused and vss. Patient has no c/o pain
[2024-01-22 20:00] VITALS: BP 118/58; PULSE 87; RESP 16; TEMP 36.6; O2SAT 98
[2024-01-22] MEDS: FAMOTIDINE 20MG TABLET 20 MG PO (20:57)
[2024-01-22] MEDS: hydrOXYzine pamoate 25MG CAPSULE 50 MG PO (20:57)
[2024-01-23] VITALS (7 sets, daily range): BP systolic 91–174; BP diastolic 49–96; PULSE 72–108; RESP 16–24; TEMP 36.6–37.4; O2SAT 93–100; BMI 24.7
--- NOTE | 2024-01-23 04:49 | PC.NURSE ---
Pt is alert to self. Has rested well throughout the shift. Had BM this shift. Incontinent of the brief. Chowdary in place and draining. No complaints from patient. Bed alarm on. Call light in reach.
[2024-01-23 06:02] LABS: Eosinophils # 0.1 K/mm3 (0.0-0.4); Eosinophils % 1.7 % (0.1-12.0); Hematocrit 26.7 % (37.0-47.0); Hemoglobin 8.6 g/dL (12.2-16.2); Lymphocytes % 50.7 % (10-50); Mean Corpuscular HGB Conc 32.3 g/dL (31.8-35.4); Mean Corpuscular Hemoglobin 32.4 pg (27.0-31.2); Mean Corpuscular Volume 100.3 fl (81-99); Mean Platelet Volume 7.9 fl (7.4-10.4); Monocytes # 0.3 K/mm3 (0.1-1.0); Monocytes % 8.2 % (1.7-9.3); Neutrophils # 1.5 K/mm3 (1.8-7.8); Neutrophils % 38.6 % (37.0-80.0); Platelet Count 253 K/mm3 (142-424); Red Blood Count 2.66 M/mm3 (4.20-5.40); Red Cell Distribution Width 18.5 % (11.5-17.5); White Blood Count 3.9 K/mm3 (4.8-10.8)
[2024-01-23 06:04] LABS: MANUAL DIFFERENTIAL MANUAL DIFFERENTIAL (MANUAL DIFF)
[2024-01-23 06:11] LABS: Anion Gap 3.5 mEq/L (5-15); Blood Urea Nitrogen 12 mg/dl (7-17); Calcium 8.3 mg/dl (8.4-10.2); Carbon Dioxide 29 mmol/L (22.0-30.0); Chloride 106 mmol/L (98-107); Creatinine Clearance Estimated 52 mL/min (50-200); Estimated Glomerular Filt Rate 70 ml/min (>60); GFR (African American) 85 ML/MIN (>60); Glucose 143 mg/dl (74-100); Potassium 3.5 mmoL/L (3.5-5.1); Sodium 135 mmol/L (136-145)
[2024-01-23 07:57] LABS: Eosinophils % 1 % (0-3); Lymphocytes % 52 % (10-50); Monocytes % 10 % (2-9); Neutrophils % 36 % (42-76); Total Cells Counted 100
[2024-01-23 07:59] LABS: Anisocytosis 1+; Hypochromasia 1+; Macrocytosis 1+; Platelet Estimate Normal
[2024-01-23] MEDS: METOPROLOL TARTRATE 25MG TABLET 12.5 MG PO ×2 (08:03→21:05)
[2024-01-23] MEDS: TAMSULOSIN 0.4MG CAPSULE 0.4 MG PO ×2 (08:04→21:06)
[2024-01-23] MEDS: SERTRALINE 100MG TABLET 100 MG PO (08:04)
[2024-01-23] MEDS: SIMETHICONE 80MG CHEWABLE TABLET 160 MG PO ×3 (08:04→21:04)
[2024-01-23] MEDS: BUSPIRONE HCL 10 MG TABLET PO ×2 (08:04→21:04)
[2024-01-23] MEDS: NYSTATIN TOPICAL POWDER 30GM TP (08:04)
[2024-01-23] MEDS: ASPIRIN 81MG CHEWABLE TABLET 81 MG PO (08:05)
[2024-01-23] MEDS: FUROSEMIDE 40 MG TABLET PO (08:05)
[2024-01-23] MEDS: MAGNESIUM OXIDE 400MG TABLET 400 MG PO ×2 (08:05→21:05)
[2024-01-23] MEDS: HEPARIN SODIUM 5,000 UNIT/ML VIAL 5000 UNIT SQ ×2 (08:06→21:04)
[2024-01-23] MEDS: LORazepam 0.5MG TABLET 0.5 MG PO ×2 (08:07→21:05)
--- NOTE | 2024-01-23 15:50 | EXP.PN ---
Subjective *Date: 01/23/24 *Time: 15:50 Interval history: seen at bedside, on RA, having breakfast, patient does not have any complains Exam Data for Last 24 hours Vital signs and Labs for Last 24 Hours: Temp Pulse Resp BP Pulse Ox O2 Del Method O2 Flow Rate 98.5 F 72 20 99/57 L 100 Room Air 3.5 01/23/24 11:35 01/23/24 11:35 01/23/24 11:35 01/23/24 11:35 01/23/24 11:35 01/23/24 13:00 01/11/24 00:00 Laboratory Results - last 24 hr 01/22/24 17:44: POC Glucose 197 H 01/23/24 05:42: WBC 3.9 L, RBC 2.66 L, Hgb 8.6 L, Hct 26.7 L, MCV 100.3 H, MCH 32.4 H, MCHC 32.3, RDW 18.5 H, Plt Count 253, MPV 7.9, Neut % (Auto) 38.6, Lymph % (Auto) 50.7 H, [place] % (Auto) 8.2, Eos % (Auto) 1.7, Baso % (Auto) 1.0, Neut # (Auto) 1.5 L, Lymph # (Auto) 2.0, [place] # (Auto) 0.3, Eos # (Auto) 0.1, Baso # (Auto) 0.0, Total Counted 100, Neutrophils % (Manual) 36 L, Band Neutrophils % 1.0, Lymphocytes % (Manual) 52 H, Monocytes % (Manual) 10 H, Eosinophils % (Manual) 1, Platelet Estimate Normal, Hypochromasia 1+, Anisocytosis 1+, Macrocytosis 1+, Sodium 135 L, Potassium 3.5, Chloride 106, Carbon Dioxide 29, Anion Gap 3.5 L, BUN 12 D, Creatinine 0.80, Estimated Creat Clear 52, Estimated GFR 70, Est GFR ( Amer) 85, Glucose 143 H, Calcium 8.3 L I & O for Last 24 hours: Intake & Output 01/20/24 01/21/24 01/22/24 01/23/24 23:59 23:59 23:59 23:59 Intake Total 670 / 790 980 / 1080 580 / 820 780 / 780 Output Total 1550 / 1550 1325 / 1325 2400 / 3200 1250 / 1250 Balance -880 / -760 -345 / -245 -1820 / -2380 -470 / -470 Weight 69.173 kg 69.218 kg 68.311 kg 67.268 kg Constitutional Constitutional: no acute distress *Routine HEENT Exam Head: Present normocephalic Eye: Present EOMI and PERRL ENT: Present mucous membranes moist *Routine Neck Exam Neck: Present supple; Absent lymphadenopathy *Routine Respiratory Exam Respiratory: Present CTA bilaterally *Routine Cardiovascular Exam Cardiovascular: Present RRR *Routine Abdominal Exam Abdominal: Present soft and normoactive bowel sounds; Absent tenderness *Routine Extremities Exam Extremities: Absent cyanosis, clubbing or edema *Routine Skin Exam Skin: Present warm; Absent rash *Routine Neurological Exam Neurological: Present alert and oriented X3 Assessment and Plan *Assessment and plan (1) Weakness: Status: Acute Category: Medical Code(s): R53.1 - Weakness (2) Fall: Status: Acute Category: Medical Code(s): W19.XXXA - Unspecified fall, initial encounter (3) Metabolic acidosis: Status: Acute Category: Medical Code(s): E87.20 - Acidosis, unspecified (4) Acute hypoxemic respiratory failure: Status: Acute Category: Medical Code(s): J96.01 - Acute respiratory failure with hypoxia (5) KRISTIE (acute kidney injury): Status: Acute Category: Medical Code(s): N17.9 - Acute kidney failure, unspecified (6) Acute hypokalemia: Status: Acute Category: Medical Code(s): E87.6 - Hypokalemia (7) Acidosis, lactic: Status: Acute Category: Medical Code(s): E87.20 - Acidosis, unspecified (8) Diabetes mellitus, type 2: Status: Acute Qualifiers: Diabetes mellitus retirement insulin use: without retirement use Diabetes mellitus complication status: with other specified complication Qualified Code(s): E11.69 - Type 2 diabetes mellitus with other specified complication Category: Medical Code(s): E11.9 - Type 2 diabetes mellitus without complications (9) Candidal dermatitis: Status: Acute Category: Medical Code(s): B37.2 - Candidiasis of skin and nail (10) Hypertension: Status: Acute Category: Medical Code(s): I10 - Essential (primary) hypertension (11) Sinus tachycardia: Status: Acute Category: Medical Code(s): R00.0 - Tachycardia, unspecified Plan 73-year-old female with PMHx of insulin-dependent diabetes, resident from [facility] brought in by EMS to the emergency department with concern for SOB. EMS reports that patient was found on 2 L nasal cannula saturating only in the 70s, they placed her on 4 L and she improved up to the 90s. She was tachycardic and round with rates in the 110s, blood pressure with systolic of 110. on arrival patient workup with leukocytosis 18,000 with neutrophilia. Her VBG is concerning for metabolic acidosis pH 7.21, CO2 low at 26, bicarb low at 10, lactate 10.4. Patient's potassium on chemistry 3.0, this was repleted with IV potassium. KRISTIE with creatinine 1.7 up from normal baseline. Patient given fluids for this. Initial troponin 0.04, repeat troponin 0.05. LFTs nonactionable. Lipase negative. Urinalysis without concern for UTI. CT of the chest abdomen and pelvis without acute concern for any abnormalities. CT head without intracranial hemorrhage or intracranial abnormality. Findings discussed with ED. Agreed for admission. Patient has been doing well. Completed antibiotics. On room air. Awaiting placement. Problems addressed as follows: Acute hypoxemic respiratory failure. Resolved Acute metabolic acidosis: likely dehydration, hypoxia KRISTIE: Resolved Patient's urine and blood cultures remain negative. completed Abx course Hx of NIDDM: A1c normal if not overly controlled at 4.9. Will discontinue Accu-Cheks and metformin. Would recommend not continuing at discharge given how controlled her A1c is. In light of her comorbidities, A1c goal would be less than 8. No further treatment recommended. Rash concerning for Aby, continue nystatin powder and barrier cream in region. Heparin for dvt ppx protonix Full code PT and OT working with patient. Case management assisting with decision making capacity/potential guardianship for referral to rehab. Awaiting placement, continue current management, no change in plan today 01/23/2024
--- NOTE | 2024-01-23 16:52 | PC.NURSE ---
NO ACUTE CHANGES SINCE PREVIOUS ASSESSMENT. SHE HAS SPENT MOST OF THE DAY UP TO CHAIR AND TOLERATED WELL.
[2024-01-23] MEDS: humaLOG 100 UNITS/ML 3ML VIAL (SSI) 9 UNIT SQ (18:48)
[2024-01-23] MEDS: FAMOTIDINE 20MG TABLET 20 MG PO (21:04)
[2024-01-23] MEDS: hydrOXYzine pamoate 25MG CAPSULE 50 MG PO (21:05)
[2024-01-24] VITALS: BP 138/65; PULSE 93; RESP 18; TEMP 37.1; O2SAT 96
[2024-01-24 02:41] LABS: POC Glucose,Bedside 303 (70-110)
[2024-01-24 04:00] VITALS: BP 136/73; PULSE 90; RESP 18; TEMP 36.7; O2SAT 98; BMI 24.6
[2024-01-24 07:17] LABS: Basophils % 0.8 % (0.1-2.0); Eosinophils # 0.1 K/mm3 (0.0-0.4); Eosinophils % 2.2 % (0.1-12.0); Hematocrit 27.7 % (37.0-47.0); Hemoglobin 8.9 g/dL (12.2-16.2); Lymphocytes # 2.5 K/mm3 (0.7-4.5); Lymphocytes % 54.4 % (10-50); Mean Corpuscular HGB Conc 32.3 g/dL (31.8-35.4); Mean Corpuscular Hemoglobin 32.1 pg (27.0-31.2); Mean Corpuscular Volume 99.3 fl (81-99); Mean Platelet Volume 8.1 fl (7.4-10.4); Monocytes # 0.4 K/mm3 (0.1-1.0); Monocytes % 8.7 % (1.7-9.3); Neutrophils # 1.6 K/mm3 (1.8-7.8); Platelet Count 277 K/mm3 (142-424); Red Blood Count 2.78 M/mm3 (4.20-5.40); Red Cell Distribution Width 18.1 % (11.5-17.5); White Blood Count 4.6 K/mm3 (4.8-10.8)
[2024-01-24 07:20] LABS: MANUAL DIFFERENTIAL MANUAL DIFFERENTIAL (MANUAL DIFF)
[2024-01-24 07:26] LABS: Anion Gap 2.3 mEq/L (5-15); Blood Urea Nitrogen 12 mg/dl (7-17); Calcium 8.4 mg/dl (8.4-10.2); Carbon Dioxide 29 mmol/L (22.0-30.0); Chloride 106 mmol/L (98-107); Creatinine Clearance Estimated 52 mL/min (50-200); Estimated Glomerular Filt Rate 82 ml/min (>60); GFR (African American) 99 ML/MIN (>60); Glucose 138 mg/dl (74-100); Potassium 3.3 mmoL/L (3.5-5.1); Sodium 134 mmol/L (136-145)
[2024-01-24 08:00] VITALS: BP 106/59; PULSE 89; RESP 16; TEMP 37.2; O2SAT 96
[2024-01-24 08:13] LABS: Eosinophils % 5 % (0-3); Lymphocytes % 30 % (10-50); Monocytes % 19 % (2-9); Myelocytes % 2 (0-1); Neutrophils % 44 % (42-76); Total Cells Counted 100
[2024-01-24 08:18] LABS: Anisocytosis 1+; Hypochromasia 1+; Macrocytosis 1+; Platelet Estimate Normal
[2024-01-24] MEDS: ASPIRIN 81MG CHEWABLE TABLET 81 MG PO (08:50)
[2024-01-24] MEDS: METOPROLOL TARTRATE 25MG TABLET 12.5 MG PO ×2 (08:51→20:48)
[2024-01-24] MEDS: HEPARIN SODIUM 5,000 UNIT/ML VIAL 5000 UNIT SQ ×2 (08:51→20:48)
[2024-01-24] MEDS: TAMSULOSIN 0.4MG CAPSULE 0.4 MG PO ×2 (08:51→20:48)
[2024-01-24] MEDS: FUROSEMIDE 40 MG TABLET PO (08:51)
[2024-01-24] MEDS: SIMETHICONE 80MG CHEWABLE TABLET 160 MG PO ×3 (08:51→20:47)
[2024-01-24] MEDS: SERTRALINE 100MG TABLET 100 MG PO (08:51)
[2024-01-24] MEDS: MAGNESIUM OXIDE 400MG TABLET 400 MG PO ×2 (08:51→20:47)
[2024-01-24] MEDS: BUSPIRONE HCL 10 MG TABLET PO ×2 (08:51→20:47)
[2024-01-24] MEDS: LORazepam 0.5MG TABLET 0.5 MG PO ×2 (08:51→20:47)
[2024-01-24] MEDS: NYSTATIN TOPICAL POWDER 30GM TP ×2 (08:53→20:48)
--- NOTE | 2024-01-24 09:43 | PC.NURSE ---
dr hdz at bedside
[2024-01-24 12:00] VITALS: BP 111/56; PULSE 81; RESP 16; TEMP 37.1; O2SAT 97
--- NOTE | 2024-01-24 12:16 | P.PN_ITS ---
Subjective *Date: 01/24/24 *Time: 12:16 Interval history: seen at bedside, on RA, having breakfast, patient does not have any complains Exam Data for Last 24 hours Vital signs and Labs for Last 24 Hours: Temp Pulse Resp BP Pulse Ox O2 Del Method O2 Flow Rate 98.7 F 81 16 111/56 L 97 Room Air 3.5 01/24/24 12:00 01/24/24 12:00 01/24/24 12:00 01/24/24 12:00 01/24/24 12:00 01/24/24 12:00 01/11/24 00:00 Laboratory Results - last 24 hr 01/23/24 18:45: POC Glucose 303 H* 01/24/24 06:13: WBC 4.6 L, RBC 2.78 L, Hgb 8.9 L, Hct 27.7 L, MCV 99.3 H, MCH 32.1 H, MCHC 32.3, RDW 18.1 H, Plt Count 277, MPV 8.1, Neut % (Auto) 34.0 L, Lymph % (Auto) 54.4 H, [place] % (Auto) 8.7, Eos % (Auto) 2.2, Baso % (Auto) 0.8, Neut # (Auto) 1.6 L, Lymph # (Auto) 2.5, [place] # (Auto) 0.4, Eos # (Auto) 0.1, Baso # (Auto) 0.0, Total Counted 100, Neutrophils % (Manual) 44, Lymphocytes % (Manual) 30, Monocytes % (Manual) 19 H, Eosinophils % (Manual) 5 H, Myelocytes % 2 H, Platelet Estimate Normal, Hypochromasia 1+, Anisocytosis 1+, Macrocytosis 1+, Sodium 134 L, Potassium 3.3 L, Chloride 106, Carbon Dioxide 29, Anion Gap 2.3 L, BUN 12, Creatinine 0.70, Estimated Creat Clear 52, Estimated GFR 82, Est GFR ( Amer) 99, Glucose 138 H, Calcium 8.4 I & O for Last 24 hours: Intake & Output 01/21/24 01/22/24 01/23/24 01/24/24 23:59 23:59 23:59 23:59 Intake Total 980 / 1080 580 / 820 1115 / 1115 160 / 160 Output Total 1325 / 1325 2400 / 3200 1600 / 1600 1700 / 1700 Balance -345 / -245 -1820 / -2380 -485 / -485 -1540 / -1540 Weight 69.218 kg 68.311 kg 67.268 kg 67.177 kg Constitutional Constitutional: no acute distress *Routine HEENT Exam Head: Present normocephalic Eye: Present EOMI and PERRL ENT: Present mucous membranes moist *Routine Neck Exam Neck: Present supple; Absent lymphadenopathy *Routine Respiratory Exam Respiratory: Present CTA bilaterally *Routine Cardiovascular Exam Cardiovascular: Present RRR *Routine Abdominal Exam Abdominal: Present soft and normoactive bowel sounds; Absent tenderness *Routine Extremities Exam Extremities: Absent cyanosis, clubbing or edema *Routine Skin Exam Skin: Present warm; Absent rash *Routine Neurological Exam Neurological: Present alert and oriented X3 Assessment and Plan *Assessment and plan (1) Weakness: Status: Acute Category: Medical Code(s): R53.1 - Weakness (2) Fall: Status: Acute Category: Medical Code(s): W19.XXXA - Unspecified fall, initial encounter (3) Metabolic acidosis: Status: Acute Category: Medical Code(s): E87.20 - Acidosis, unspecified (4) Acute hypoxemic respiratory failure: Status: Acute Category: Medical Code(s): J96.01 - Acute respiratory failure with hypoxia (5) KRISTIE (acute kidney injury): Status: Acute Category: Medical Code(s): N17.9 - Acute kidney failure, unspecified (6) Acute hypokalemia: Status: Acute Category: Medical Code(s): E87.6 - Hypokalemia (7) Acidosis, lactic: Status: Acute Category: Medical Code(s): E87.20 - Acidosis, unspecified (8) Diabetes mellitus, type 2: Status: Acute Qualifiers: Diabetes mellitus penitentiary insulin use: without termite exterminator helper use Diabetes mellitus complication status: with other specified complication Qualified Code(s): E11.69 - Type 2 diabetes mellitus with other specified complication Category: Medical Code(s): E11.9 - Type 2 diabetes mellitus without complications (9) Candidal dermatitis: Status: Acute Category: Medical Code(s): B37.2 - Candidiasis of skin and nail (10) Hypertension: Status: Acute Category: Medical Code(s): I10 - Essential (primary) hypertension (11) Sinus tachycardia: Status: Acute Category: Medical Code(s): R00.0 - Tachycardia, unspecified Plan 73-year-old female with PMHx of insulin-dependent diabetes, resident from [facility] brought in by EMS to the emergency department with concern for SOB. EMS reports that patient was found on 2 L nasal cannula saturating only in the 70s, they placed her on 4 L and she improved up to the 90s. She was tachycardic and round with rates in the 110s, blood pressure with systolic of 110. on arrival patient workup with leukocytosis 18,000 with neutrophilia. Her VBG is concerning for metabolic acidosis pH 7.21, CO2 low at 26, bicarb low at 10, lactate 10.4. Patient's potassium on chemistry 3.0, this was repleted with IV potassium. KRISTIE with creatinine 1.7 up from normal baseline. Patient given fluids for this. Initial troponin 0.04, repeat troponin 0.05. LFTs nonactionable. Lipase negative. Urinalysis without concern for UTI. CT of the chest abdomen and pelvis without acute concern for any abnormalities. CT head without intracranial hemorrhage or intracranial abnormality. Findings discussed with ED. Agreed for admission. Patient has been doing well. Completed antibiotics. On room air. Awaiting placement. Problems addressed as follows: Acute hypoxemic respiratory failure. Resolved Acute metabolic acidosis: likely dehydration, hypoxia KRISTIE: Resolved Patient's urine and blood cultures remain negative. completed Abx course Hx of NIDDM: A1c normal if not overly controlled at 4.9. Will discontinue Accu- Cheks and metformin. Would recommend not continuing at discharge given how controlled her A1c is. In light of her comorbidities, A1c goal would be less than 8. No further treatment recommended. Rash concerning for Aby, continue nystatin powder and barrier cream in region. Heparin for dvt ppx protonix Full code PT and OT working with patient. Case management assisting with decision making capacity/potential guardianship for referral to rehab. Awaiting placement, continue current management, no change in plan today 01/24/2024
[2024-01-24 15:55] VITALS: BP 101/51; PULSE 92; RESP 17; TEMP 36.5; O2SAT 96
[2024-01-24] MEDS: humaLOG 100 UNITS/ML 3ML VIAL (SSI) 9 UNIT SQ (17:09)
[2024-01-24 17:10] LABS: POC Glucose,Bedside 213 (70-110)
--- NOTE | 2024-01-24 17:15 | PC.NURSE ---
A TO NAME AND BIRTHDAY ONLY. PT HAS TOLERATED RA WELL THROUGHOUT SHIFT. LUNG SOUNDS CLEAR THROUGHOUT. RESPIRATIONS REGULAR AND UNLABORED. NO EDEMA NOTED. BED ALARM ON TO PROMOTE SAFETY. ACTIVE BOWEL SOUNDS HEARD IN ALL 4 QUADRANTS. SOFT AND NONTENDER. PT HAS HAD 1 BM THIS SHIFT. LARSON CATH IN PLACE WITH CLEAR YELLOW URINE NOTED. NO KINKS NOTED. HAND GUM ROLLING MACHINE TENDER EQUAL. +2 PULSES NOTED THROUGHOUT. PT HAS SLEPT OFF AND ON MOST OF SHIFT. BED IN LOWEST POSITION. CALL LIGHT WITHIN REACH. NO QUESTIONS OR CONCERNS VOICED THUS FAR. DENIES CP, SOB, OR PAIN.
[2024-01-24 20:00] VITALS: BP 127/54; PULSE 83; RESP 20; TEMP 37.2; O2SAT 97
[2024-01-24] MEDS: hydrOXYzine pamoate 25MG CAPSULE 50 MG PO (20:47)
[2024-01-24] MEDS: ACETAMINOPHEN 325MG TAB 650 MG PO (20:47)
[2024-01-24] MEDS: FAMOTIDINE 20MG TABLET 20 MG PO (20:47)
[2024-01-25] VITALS: BP 125/74; PULSE 79; RESP 18; TEMP 36.8; O2SAT 95
[2024-01-25 04:00] VITALS: BP 114/60; PULSE 76; RESP 18; TEMP 36.9; O2SAT 98; BMI 24.8
--- NOTE | 2024-01-25 05:09 | PC.NURSE ---
Pt is alert to self. Rested throughout the night. Chowdary in place and draining clear yellow urine. No complaints from patient. Bed alarm on. Call light in reach.
[2024-01-25 06:38] LABS: Anion Gap 8.4 mEq/L (5-15); Blood Urea Nitrogen 11 mg/dl (7-17); Calcium 8.5 mg/dl (8.4-10.2); Carbon Dioxide 28 mmol/L (22.0-30.0); Chloride 103 mmol/L (98-107); Creatinine Clearance Estimated 53 mL/min (50-200); Estimated Glomerular Filt Rate 98 ml/min (>60); GFR (African American) 118 ML/MIN (>60); Glucose 123 mg/dl (74-100); Potassium 3.4 mmoL/L (3.5-5.1); Sodium 136 mmol/L (136-145)
[2024-01-25 06:41] LABS: Basophils % 1.2 % (0.1-2.0); Eosinophils # 0.1 K/mm3 (0.0-0.4); Eosinophils % 2.9 % (0.1-12.0); Hematocrit 28.3 % (37.0-47.0); Lymphocytes # 1.9 K/mm3 (0.7-4.5); Lymphocytes % 51.1 % (10-50); Mean Corpuscular Hemoglobin 31.7 pg (27.0-31.2); Mean Corpuscular Volume 99.3 fl (81-99); Monocytes # 0.3 K/mm3 (0.1-1.0); Monocytes % 8.1 % (1.7-9.3); Neutrophils # 1.4 K/mm3 (1.8-7.8); Neutrophils % 36.7 % (37.0-80.0); Platelet Count 283 K/mm3 (142-424); Red Blood Count 2.84 M/mm3 (4.20-5.40); White Blood Count 3.8 K/mm3 (4.8-10.8)
[2024-01-25 06:42] LABS: MANUAL DIFFERENTIAL MANUAL DIFFERENTIAL (MANUAL DIFF)
[2024-01-25 07:45] VITALS: BP 120/66; PULSE 75; RESP 18; TEMP 36.8; O2SAT 97
[2024-01-25 08:23] LABS: Eosinophils % 2 % (0-3); Lymphocytes % 53 % (10-50); Monocytes % 8 % (2-9); Neutrophils % 37 % (42-76); Total Cells Counted 100
[2024-01-25 08:24] LABS: Hypochromasia 1+; Macrocytosis 1+; Platelet Estimate Normal
[2024-01-25] MEDS: ASPIRIN 81MG CHEWABLE TABLET 81 MG PO (08:27)
[2024-01-25] MEDS: BUSPIRONE HCL 10 MG TABLET PO ×2 (08:27→20:13)
[2024-01-25] MEDS: SIMETHICONE 80MG CHEWABLE TABLET 160 MG PO ×3 (08:27→20:13)
[2024-01-25] MEDS: FUROSEMIDE 40 MG TABLET PO (08:27)
[2024-01-25] MEDS: HEPARIN SODIUM 5,000 UNIT/ML VIAL 5000 UNIT SQ ×2 (08:27→20:12)
[2024-01-25] MEDS: METOPROLOL TARTRATE 25MG TABLET 12.5 MG PO ×2 (08:28→20:13)
[2024-01-25] MEDS: MAGNESIUM OXIDE 400MG TABLET 400 MG PO ×2 (08:28→20:13)
[2024-01-25] MEDS: NYSTATIN TOPICAL POWDER 30GM TP ×2 (08:28→20:15)
[2024-01-25] MEDS: SERTRALINE 100MG TABLET 100 MG PO (08:29)
[2024-01-25] MEDS: TAMSULOSIN 0.4MG CAPSULE 0.4 MG PO ×2 (08:29→20:13)
[2024-01-25] MEDS: LORazepam 0.5MG TABLET 0.5 MG PO ×2 (08:35→20:13)
--- NOTE | 2024-01-25 12:19 | EXP.PN ---
Subjective *Date: 01/25/24 *Time: 12:19 Interval history: seen at bedside, on RA, lying comfortable in bed, patient does not have any complains Exam Data for Last 24 hours Vital signs and Labs for Last 24 Hours: Temp Pulse Resp BP Pulse Ox O2 Del Method O2 Flow Rate 98.3 F 75 18 120/66 97 Room Air 3.5 01/25/24 07:45 01/25/24 07:45 01/25/24 07:45 01/25/24 07:45 01/25/24 07:45 01/25/24 11:00 01/11/24 00:00 Laboratory Results - last 24 hr 01/24/24 17:03: POC Glucose 213 H 01/25/24 06:04: WBC 3.8 L, RBC 2.84 L, Hgb 9.0 L, Hct 28.3 L, MCV 99.3 H, MCH 31.7 H, MCHC 32.0, RDW 18.0 H, Plt Count 283, MPV 8.0, Neut % (Auto) 36.7 L, Lymph % (Auto) 51.1 H, [place] % (Auto) 8.1, Eos % (Auto) 2.9, Baso % (Auto) 1.2, Neut # (Auto) 1.4 L, Lymph # (Auto) 1.9, [place] # (Auto) 0.3, Eos # (Auto) 0.1, Baso # (Auto) 0.0, Total Counted 100, Neutrophils % (Manual) 37 L, Lymphocytes % (Manual) 53 H, Monocytes % (Manual) 8, Eosinophils % (Manual) 2, Platelet Estimate Normal, Hypochromasia 1+, Macrocytosis 1+ 01/25/24 06:12: Sodium 136, Potassium 3.4 L, Chloride 103, Carbon Dioxide 28, Anion Gap 8.4, BUN 11, Creatinine 0.60, Estimated Creat Clear 53, Estimated GFR 98, Est GFR ( Amer) 118, Glucose 123 H, Calcium 8.5 I & O for Last 24 hours: Intake & Output 01/22/24 01/23/24 01/24/24 01/25/24 23:59 23:59 23:59 23:59 Intake Total 580 / 820 1115 / 1115 820 / 940 120 / 120 Output Total 2400 / 3200 1600 / 1600 2250 / 2250 1000 / 1000 Balance -1820 / -2380 -485 / -485 -1430 / -1310 -880 / -880 Weight 68.311 kg 67.268 kg 67.177 kg 67.585 kg Constitutional Constitutional: no acute distress *Routine HEENT Exam Head: Present normocephalic Eye: Present EOMI and PERRL ENT: Present mucous membranes moist *Routine Neck Exam Neck: Present supple; Absent lymphadenopathy *Routine Respiratory Exam Respiratory: Present CTA bilaterally *Routine Cardiovascular Exam Cardiovascular: Present RRR *Routine Abdominal Exam Abdominal: Present soft and normoactive bowel sounds; Absent tenderness *Routine Extremities Exam Extremities: Absent cyanosis, clubbing or edema *Routine Skin Exam Skin: Present warm; Absent rash *Routine Neurological Exam Neurological: Present alert and oriented X3 Assessment and Plan *Assessment and plan (1) Weakness: Status: Acute Category: Medical Code(s): R53.1 - Weakness (2) Fall: Status: Acute Category: Medical Code(s): W19.XXXA - Unspecified fall, initial encounter (3) Metabolic acidosis: Status: Acute Category: Medical Code(s): E87.20 - Acidosis, unspecified (4) Acute hypoxemic respiratory failure: Status: Acute Category: Medical Code(s): J96.01 - Acute respiratory failure with hypoxia (5) KRISTIE (acute kidney injury): Status: Acute Category: Medical Code(s): N17.9 - Acute kidney failure, unspecified (6) Acute hypokalemia: Status: Acute Category: Medical Code(s): E87.6 - Hypokalemia (7) Acidosis, lactic: Status: Acute Category: Medical Code(s): E87.20 - Acidosis, unspecified (8) Diabetes mellitus, type 2: Status: Acute Qualifiers: Diabetes mellitus buttermaker helper insulin use: without nursing home use Diabetes mellitus complication status: with other specified complication Qualified Code(s): E11.69 - Type 2 diabetes mellitus with other specified complication Category: Medical Code(s): E11.9 - Type 2 diabetes mellitus without complications (9) Candidal dermatitis: Status: Acute Category: Medical Code(s): B37.2 - Candidiasis of skin and nail (10) Hypertension: Status: Acute Category: Medical Code(s): I10 - Essential (primary) hypertension (11) Sinus tachycardia: Status: Acute Category: Medical Code(s): R00.0 - Tachycardia, unspecified Plan 73-year-old female with PMHx of insulin-dependent diabetes, resident from [facility] brought in by EMS to the emergency department with concern for SOB. EMS reports that patient was found on 2 L nasal cannula saturating only in the 70s, they placed her on 4 L and she improved up to the 90s. She was tachycardic and round with rates in the 110s, blood pressure with systolic of 110. on arrival patient workup with leukocytosis 18,000 with neutrophilia. Her VBG is concerning for metabolic acidosis pH 7.21, CO2 low at 26, bicarb low at 10, lactate 10.4. Patient's potassium on chemistry 3.0, this was repleted with IV potassium. KRISTIE with creatinine 1.7 up from normal baseline. Patient given fluids for this. Initial troponin 0.04, repeat troponin 0.05. LFTs nonactionable. Lipase negative. Urinalysis without concern for UTI. CT of the chest abdomen and pelvis without acute concern for any abnormalities. CT head without intracranial hemorrhage or intracranial abnormality. Findings discussed with ED. Agreed for admission. Patient has been doing well. Completed antibiotics. On room air. Awaiting placement. Problems addressed as follows: Acute hypoxemic respiratory failure. Resolved Acute metabolic acidosis: likely dehydration, hypoxia KRISTIE: Resolved Patient's urine and blood cultures remain negative. completed Abx course Hx of NIDDM: A1c normal if not overly controlled at 4.9. Will discontinue Accu-Cheks and metformin. Would recommend not continuing at discharge given how controlled her A1c is. In light of her comorbidities, A1c goal would be less than 8. No further treatment recommended. Rash concerning for Aby, continue nystatin powder and barrier cream in region. Heparin for dvt ppx protonix Full code PT and OT working with patient. Case management assisting with decision making capacity/potential guardianship for referral to rehab. Awaiting placement, continue current management, no change in plan today 01/25/2024
[2024-01-25 16:00] VITALS: BP 119/69; PULSE 84; RESP 18; TEMP 36.4; O2SAT 98
--- NOTE | 2024-01-25 16:16 | PC.NURSE ---
No acute changes this shift. No complaints stated. Pt has been up to her chair this shift. Tolerated well. Lungs are clear. Pt remains on RA. F/C remains in place at this time. Call light within reach. Safety measures in place.
[2024-01-25] MEDS: humaLOG 100 UNITS/ML 3ML VIAL (SSI) 9 UNIT SQ (17:10)
[2024-01-25 17:21] LABS: POC Glucose,Bedside 183 (70-110)
[2024-01-25 20:00] VITALS: BP 124/71; PULSE 90; RESP 18; TEMP 36.7; O2SAT 97
[2024-01-25] MEDS: FAMOTIDINE 20MG TABLET 20 MG PO (20:13)
[2024-01-25] MEDS: hydrOXYzine pamoate 25MG CAPSULE 50 MG PO (20:13)
[2024-01-26] VITALS: BP 129/60; PULSE 87; RESP 18; TEMP 36.8; O2SAT 98
[2024-01-26 04:00] VITALS: BP 143/69; PULSE 92; RESP 18; TEMP 36.7; O2SAT 94; BMI 24.3
--- NOTE | 2024-01-26 04:19 | PC.NURSE ---
Patient has had a great night. Has not had any acute changes. remains with a soto for urinary retention.
[2024-01-26 08:00] VITALS: BP 115/62; PULSE 87; RESP 20; TEMP 36.8; O2SAT 97
[2024-01-26] MEDS: TAMSULOSIN 0.4MG CAPSULE 0.4 MG PO ×2 (08:46→20:19)
[2024-01-26] MEDS: HEPARIN SODIUM 5,000 UNIT/ML VIAL 5000 UNIT SQ ×2 (08:46→20:19)
[2024-01-26] MEDS: SIMETHICONE 80MG CHEWABLE TABLET 160 MG PO ×3 (08:46→20:19)
[2024-01-26] MEDS: ASPIRIN 81MG CHEWABLE TABLET 81 MG PO (08:47)
[2024-01-26] MEDS: METOPROLOL TARTRATE 25MG TABLET 12.5 MG PO ×2 (08:47→20:20)
[2024-01-26] MEDS: LORazepam 0.5MG TABLET 0.5 MG PO ×2 (08:47→20:19)
[2024-01-26] MEDS: FUROSEMIDE 40 MG TABLET PO (08:47)
[2024-01-26] MEDS: NYSTATIN TOPICAL POWDER 30GM TP ×2 (08:47→20:20)
[2024-01-26] MEDS: MAGNESIUM OXIDE 400MG TABLET 400 MG PO ×2 (08:47→20:19)
[2024-01-26] MEDS: BUSPIRONE HCL 10 MG TABLET PO ×2 (08:47→20:19)
[2024-01-26] MEDS: SERTRALINE 100MG TABLET 100 MG PO (08:50)
--- NOTE | 2024-01-26 11:02 | EXP.PN ---
Subjective *Date: 01/26/24 *Time: 11:02 Interval history: seen at bedside, appears comfortable in bed, getting ready to work with therapy, tolerating breakfast, on Room air, no complains today Exam Data for Last 24 hours Vital signs and Labs for Last 24 Hours: Temp Pulse Resp BP Pulse Ox O2 Del Method O2 Flow Rate 98.2 F 87 20 115/62 97 Room Air 3.5 01/26/24 08:00 01/26/24 08:00 01/26/24 08:00 01/26/24 08:00 01/26/24 08:00 01/26/24 08:00 01/11/24 00:00 Laboratory Results - last 24 hr 01/25/24 17:08: POC Glucose 183 H I & O for Last 24 hours: Intake & Output 01/23/24 01/24/24 01/25/24 01/26/24 23:59 23:59 23:59 23:59 Intake Total 1115 / 1115 820 / 940 960 / 960 270 / 270 Output Total 1600 / 1600 2250 / 2250 1400 / 2100 1050 / 1050 Balance -485 / -485 -1430 / -1310 -440 / -1140 -780 / -780 Weight 67.268 kg 67.177 kg 67.585 kg 66.043 kg Constitutional Constitutional: no acute distress *Routine HEENT Exam Head: Present normocephalic Eye: Present EOMI and PERRL ENT: Present mucous membranes moist *Routine Neck Exam Neck: Present supple; Absent lymphadenopathy *Routine Respiratory Exam Respiratory: Present CTA bilaterally *Routine Cardiovascular Exam Cardiovascular: Present RRR *Routine Abdominal Exam Abdominal: Present soft and normoactive bowel sounds; Absent tenderness *Routine Extremities Exam Extremities: Absent cyanosis, clubbing or edema *Routine Skin Exam Skin: Present warm; Absent rash *Routine Neurological Exam Neurological: Present alert and oriented X3 Assessment and Plan *Assessment and plan (1) Weakness: Status: Acute Category: Medical Code(s): R53.1 - Weakness (2) Fall: Status: Acute Category: Medical Code(s): W19.XXXA - Unspecified fall, initial encounter (3) Metabolic acidosis: Status: Acute Category: Medical Code(s): E87.20 - Acidosis, unspecified (4) Acute hypoxemic respiratory failure: Status: Acute Category: Medical Code(s): J96.01 - Acute respiratory failure with hypoxia (5) KRISTIE (acute kidney injury): Status: Acute Category: Medical Code(s): N17.9 - Acute kidney failure, unspecified (6) Acute hypokalemia: Status: Acute Category: Medical Code(s): E87.6 - Hypokalemia (7) Acidosis, lactic: Status: Acute Category: Medical Code(s): E87.20 - Acidosis, unspecified (8) Diabetes mellitus, type 2: Status: Acute Qualifiers: Diabetes mellitus technician terminal and repeater insulin use: without technician terminal and repeater use Diabetes mellitus complication status: with other specified complication Qualified Code(s): E11.69 - Type 2 diabetes mellitus with other specified complication Category: Medical Code(s): E11.9 - Type 2 diabetes mellitus without complications (9) Candidal dermatitis: Status: Acute Category: Medical Code(s): B37.2 - Candidiasis of skin and nail (10) Hypertension: Status: Acute Category: Medical Code(s): I10 - Essential (primary) hypertension (11) Sinus tachycardia: Status: Acute Category: Medical Code(s): R00.0 - Tachycardia, unspecified Plan 73-year-old female with PMHx of insulin-dependent diabetes, resident from [facility] brought in by EMS to the emergency department with concern for SOB. EMS reports that patient was found on 2 L nasal cannula saturating only in the 70s, they placed her on 4 L and she improved up to the 90s. She was tachycardic and round with rates in the 110s, blood pressure with systolic of 110. on arrival patient workup with leukocytosis 18,000 with neutrophilia. Her VBG is concerning for metabolic acidosis pH 7.21, CO2 low at 26, bicarb low at 10, lactate 10.4. Patient's potassium on chemistry 3.0, this was repleted with IV potassium. KRISTIE with creatinine 1.7 up from normal baseline. Patient given fluids for this. Initial troponin 0.04, repeat troponin 0.05. LFTs nonactionable. Lipase negative. Urinalysis without concern for UTI. CT of the chest abdomen and pelvis without acute concern for any abnormalities. CT head without intracranial hemorrhage or intracranial abnormality. Findings discussed with ED. Agreed for admission. Patient has been doing well. Completed antibiotics. On room air. Awaiting placement. Acute hypoxemic respiratory failure. Resolved Acute metabolic acidosis: likely dehydration, hypoxia KRISTIE: Resolved Patient's urine and blood cultures remain negative. completed Abx course Hx of NIDDM: A1c normal if not overly controlled at 4.9. discontinue Accu-Cheks and metformin. Would recommend not continuing at discharge given how controlled her A1c is. In light of her comorbidities, A1c goal would be less than 8. No further treatment recommended. Rash concerning for Aby, continue nystatin powder and barrier cream in region. Heparin for dvt ppx protonix Full code PT and OT working with patient. Case management assisting with decision making capacity/potential guardianship for referral to rehab. Awaiting placement, continue current management, no change in plan today 01/26/2024
[2024-01-26 12:00] VITALS: BP 103/51; PULSE 91; RESP 17; TEMP 36.8; O2SAT 96
[2024-01-26 16:00] VITALS: BP 116/50; PULSE 110; RESP 24; TEMP 36.9; O2SAT 93
[2024-01-26] MEDS: humaLOG 100 UNITS/ML 3ML VIAL (SSI) 9 UNIT SQ (18:12)
[2024-01-26 18:21] LABS: POC Glucose,Bedside 183 (70-110)
[2024-01-26 20:00] VITALS: BP 157/66; PULSE 98; RESP 18; TEMP 37.1; O2SAT 99
[2024-01-26] MEDS: FAMOTIDINE 20MG TABLET 20 MG PO (20:19)
[2024-01-26] MEDS: hydrOXYzine pamoate 25MG CAPSULE 50 MG PO (20:20)
[2024-01-27] VITALS: BP 131/51; PULSE 96; RESP 16; TEMP 37.7; O2SAT 93
[2024-01-27] MEDS: ACETAMINOPHEN 325MG TAB 650 MG PO (00:27)
[2024-01-27 04:00] VITALS: BP 138/68; PULSE 85; RESP 16; TEMP 36.7; O2SAT 98; BMI 24.2
--- NOTE | 2024-01-27 04:42 | PC.NURSE ---
Pt alert to self. Has rested throughout the shift. Low fever @ 0000, treated per nov. Pt has had no complaints. Chowdary in place and draining clear yellow urine. Had BM this shift. Bed alarm on. Call light in reach.
--- NOTE | 2024-01-27 07:46 | EXP.ACUTE.PN ---
Subjective *Date: 01/27/24 *Time: 14:21 Interval history: No acute events overnight. Stable on room air. Tolerating p.o. intake on morning rounds. Medical Exam Vital signs and Labs for Last 24 Hours: Vital Signs Temp Pulse Resp BP Pulse Ox O2 Del Method 01/27/24 06:56 Room Air 01/27/24 04:43 Room Air 01/27/24 04:00 98.1 F 85 16 138/68 98 Room Air 01/27/24 02:58 Room Air 01/27/24 01:00 Room Air 01/27/24 00:00 99.8 F H 96 H 16 131/51 L 93 L Room Air 01/26/24 23:00 Room Air 01/26/24 21:00 Room Air 01/26/24 20:00 Room Air 01/26/24 20:00 98.8 F 98 H 18 157/66 H 99 Room Air 01/26/24 18:51 Room Air 01/26/24 17:00 Room Air 01/26/24 16:00 98.4 F 110 H 24 116/50 L 93 L 01/26/24 15:00 Room Air 01/26/24 13:00 Room Air 01/26/24 12:00 98.2 F 91 H 17 103/51 L 96 Room Air 01/26/24 11:00 Room Air 01/26/24 09:00 Room Air 01/26/24 08:00 97 Room Air 01/26/24 08:00 98.2 F 87 20 115/62 97 Room Air Intake and Output 01/26/24 01/26/24 01/27/24 15:59 23:59 07:59 Intake Total 540 / 1140 360 / 1140 240 / 240 Output Total 2000 / 3050 0 / 3050 1000 / 1000 Balance -1460 / -1910 360 / -1910 -760 / -760 Intake: Intake, Oral Amount 540 / 1140 360 / 1140 240 / 240 Output: Output, Urine Amount 1000 / 1350 0 / 1350 1000 / 1000 Output, Urine Amount (Catheter) 1000 / 1700 Urethral 1000 / 1700 Other: Number of Voids 0 Number of Unmeasured Voids 0 0 0 Number of Bowel Movements 0 1 Weight 65.952 kg Patient Weight 01/27/24 23:59 Weight 65.952 kg Laboratory Results - last 24 hr 01/26/24 18:14: POC Glucose 183 H I & O for Labs for Last 24 Hours: Intake & Output 01/24/24 01/25/24 01/26/24 01/27/24 23:59 23:59 23:59 23:59 Intake Total 820 / 940 960 / 960 900 / 1140 240 / 240 Output Total 2250 / 2250 1400 / 2100 3050 / 3050 1000 / 1000 Balance -1430 / -1310 -440 / -1140 -2150 / -1910 -760 / -760 Weight 67.177 kg 67.585 kg 66.043 kg 65.952 kg Constitutional: Present no acute distress, average body habitus and cooperative Head: Present atraumatic and normocephalic ENT: Present normal exam Respiratory: Present normal respiratory effort; Absent rhonchi, wheezes or crackles Cardiac: Present Reg Rate and Rhythm GI: Present soft and normal bowel sounds; Absent distention or tenderness Extremities: Present normal inspection, full ROM and edema (1+ to knees) Skin: Present intact; Absent erythema Neuro: Present Essential Tremor, Grossly Intact, alert, awake and moves all extremities Comment:: Oriented to self only Assessment and Plan *Assessment and plan (1) Weakness: Status: Acute Category: Medical Code(s): R53.1 - Weakness (2) Fall: Status: Acute Category: Medical Code(s): W19.XXXA - Unspecified fall, initial encounter (3) Metabolic acidosis: Status: Acute Category: Medical Code(s): E87.20 - Acidosis, unspecified (4) Acute hypoxemic respiratory failure: Status: Acute Category: Medical Code(s): J96.01 - Acute respiratory failure with hypoxia (5) KRISTIE (acute kidney injury): Status: Acute Category: Medical Code(s): N17.9 - Acute kidney failure, unspecified (6) Acute hypokalemia: Status: Acute Category: Medical Code(s): E87.6 - Hypokalemia (7) Acidosis, lactic: Status: Acute Category: Medical Code(s): E87.20 - Acidosis, unspecified (8) Diabetes mellitus, type 2: Status: Acute Qualifiers: Diabetes mellitus exterminator helper termite insulin use: without correction use Diabetes mellitus complication status: with other specified complication Qualified Code(s): E11.69 - Type 2 diabetes mellitus with other specified complication Category: Medical Code(s): E11.9 - Type 2 diabetes mellitus without complications (9) Candidal dermatitis: Status: Acute Category: Medical Code(s): B37.2 - Candidiasis of skin and nail (10) Hypertension: Status: Acute Category: Medical Code(s): I10 - Essential (primary) hypertension (11) Sinus tachycardia: Status: Acute Category: Medical Code(s): R00.0 - Tachycardia, unspecified Plan 73-year-old female with PMHx of insulin-dependent diabetes, resident from [facility] brought in by EMS to the emergency department with concern for SOB. EMS reports that patient was found on 2 L nasal cannula saturating only in the 70s, they placed her on 4 L and she improved up to the 90s. She was tachycardic and round with rates in the 110s, blood pressure with systolic of 110. on arrival patient workup with leukocytosis 18,000 with neutrophilia. Her VBG is concerning for metabolic acidosis pH 7.21, CO2 low at 26, bicarb low at 10, lactate 10.4. Patient's potassium on chemistry 3.0, this was repleted with IV potassium. KRISTIE with creatinine 1.7 up from normal baseline. Patient given fluids for this. Initial troponin 0.04, repeat troponin 0.05. LFTs nonactionable. Lipase negative. Urinalysis without concern for UTI. CT of the chest abdomen and pelvis without acute concern for any abnormalities. CT head without intracranial hemorrhage or intracranial abnormality. Findings discussed with ED. Agreed for admission. Patient medically stable for placement once guardianship established. APS evaluating and working with case management. Bladder training, Chowdary remains in place. Problems addressed as follows: Acute hypoxemic respiratory failure. Resolved Acute metabolic acidosis: likely dehydration, hypoxia KRISTIE: Resolved Case being evaluated by APS. Awaiting guardianship and then subsequent placement. Will obtain CBC, CMP, magnesium in the morning to monitor kidney function and electrolytes. Urinary retention: Continues to require Chowdary. Will initiate bladder training with clamping for 4 hours and voiding for 30 minutes. Continue tamsulosin 0.4 mg twice daily Hx of NIDDM: A1c normal if not overly controlled at 4.9. Continue metformin 500 mg twice daily. No insulin at this time. Rash concerning for Aby, continue nystatin powder and barrier cream in region. Heparin for dvt ppx protonix Full code PT and OT working with patient. Case management assisting with decision making capacity/potential guardianship for referral to rehab.
[2024-01-27 08:00] VITALS: BP 108/60; PULSE 87; RESP 20; TEMP 36.9; O2SAT 97
[2024-01-27] MEDS: METOPROLOL TARTRATE 25MG TABLET 12.5 MG PO ×2 (08:25→20:20)
[2024-01-27] MEDS: SIMETHICONE 80MG CHEWABLE TABLET 160 MG PO ×3 (08:25→20:19)
[2024-01-27] MEDS: FUROSEMIDE 40 MG TABLET PO (08:25)
[2024-01-27] MEDS: MAGNESIUM OXIDE 400MG TABLET 400 MG PO ×2 (08:25→20:19)
[2024-01-27] MEDS: HEPARIN SODIUM 5,000 UNIT/ML VIAL 5000 UNIT SQ ×2 (08:25→20:19)
[2024-01-27] MEDS: BUSPIRONE HCL 10 MG TABLET PO ×2 (08:25→20:20)
[2024-01-27] MEDS: ASPIRIN 81MG CHEWABLE TABLET 81 MG PO (08:25)
[2024-01-27] MEDS: TAMSULOSIN 0.4MG CAPSULE 0.4 MG PO ×2 (08:26→20:19)
[2024-01-27] MEDS: NYSTATIN TOPICAL POWDER 30GM TP ×2 (08:26→20:20)
[2024-01-27] MEDS: SERTRALINE 100MG TABLET 100 MG PO (08:26)
[2024-01-27] MEDS: LORazepam 0.5MG TABLET 0.5 MG PO ×2 (08:27→20:20)
--- NOTE | 2024-01-27 10:17 | PC.NURSE ---
pt is pleasant this morning and up in the chair. F/c still in place. She denies any pain. ate fair for breakfast
[2024-01-27 13:00] VITALS: BP 91/51; PULSE 76; RESP 21; TEMP 36.7; O2SAT 100
[2024-01-27] MEDS: ERGOCALCIFEROL 50,000 UNITS (1.25MG) CAPSULE 50000 UNIT PO (15:10)
[2024-01-27 16:00] VITALS: BP 123/72; PULSE 86; RESP 18; TEMP 36.6; O2SAT 98
--- NOTE | 2024-01-27 17:54 | PC.NURSE ---
pt is tolerating soto clamping well. denies any pain.
[2024-01-27] MEDS: METFORMIN 500MG TABLET 500 MG PO (18:27)
[2024-01-27 20:00] VITALS: BP 127/62; PULSE 82; RESP 18; TEMP 37; O2SAT 100
[2024-01-27] MEDS: hydrOXYzine pamoate 25MG CAPSULE 50 MG PO (20:20)
[2024-01-27] MEDS: FAMOTIDINE 20MG TABLET 20 MG PO (20:20)
[2024-01-28] VITALS (7 sets, daily range): BP systolic 104–138; BP diastolic 55–69; PULSE 79–100; RESP 16–18; TEMP 36.6–36.9; O2SAT 92–98; BMI 24.5
--- NOTE | 2024-01-28 06:02 | PC.NURSE ---
Alert to self. Bladder training throughout the night. Chowdary last clamped at 0400. Pt tolerating well. No complaints from pt, rested throughout the night. Bed alarm on. Call light in reach.
[2024-01-28 06:42] LABS: Basophils % 0.6 % (0.1-2.0); Eosinophils # 0.2 K/mm3 (0.0-0.4); Eosinophils % 2.9 % (0.1-12.0); Hematocrit 27.9 % (37.0-47.0); Hemoglobin 8.8 g/dL (12.2-16.2); Lymphocytes # 2.4 K/mm3 (0.7-4.5); Lymphocytes % 44.8 % (10-50); Mean Corpuscular HGB Conc 31.4 g/dL (31.8-35.4); Mean Corpuscular Hemoglobin 31.5 pg (27.0-31.2); Mean Corpuscular Volume 100.4 fl (81-99); Mean Platelet Volume 7.4 fl (7.4-10.4); Monocytes # 0.3 K/mm3 (0.1-1.0); Monocytes % 6.3 % (1.7-9.3); Neutrophils # 2.5 K/mm3 (1.8-7.8); Neutrophils % 45.4 % (37.0-80.0); Platelet Count 303 K/mm3 (142-424); Red Blood Count 2.78 M/mm3 (4.20-5.40); Red Cell Distribution Width 17.7 % (11.5-17.5); White Blood Count 5.4 K/mm3 (4.8-10.8)
[2024-01-28 06:48] LABS: Alanine Aminotransferase 21 U/L (12-78); Albumin Level 2.7 g/dl (3.5-5.0); Alkaline Phosphatase 80 U/L (38-126); Anion Gap 10.8 mEq/L (5-15); Aspartate Amino Transferase 31 U/L (14-36); Bilirubin,Total 0.5 mg/dl (0.2-1.3); Blood Urea Nitrogen 8 mg/dl (7-17); Calcium 8.6 mg/dl (8.4-10.2); Carbon Dioxide 24 mmol/L (22.0-30.0); Chloride 104 mmol/L (98-107); Creatinine Clearance Estimated 52 mL/min (50-200); Estimated Glomerular Filt Rate 82 ml/min (>60); GFR (African American) 99 ML/MIN (>60); Globulin 2.6 g/dL (1.3-3.2); Glucose 138 mg/dl (74-100); Magnesium 1.9 mg/dl (1.6-2.3); Potassium 3.8 mmoL/L (3.5-5.1); Sodium 135 mmol/L (136-145); Total Protein,Serum 5.3 g/dl (6.3-8.2)
--- NOTE | 2024-01-28 08:13 | P.PN_ITS ---
Subjective *Date: 01/28/24 *Time: 11:08 Interval history: No acute events overnight. Tolerating p.o. intake. Stable on room air. Afebrile. Tolerating bladder training. Will discontinue Chowdary today. Medical Exam Vital signs and Labs for Last 24 Hours: Vital Signs Temp Pulse Resp BP Pulse Ox O2 Del Method 01/28/24 07:45 97.9 F 81 16 117/55 L 92 L Room Air 01/28/24 06:46 Room Air 01/28/24 05:00 Room Air 01/28/24 04:00 98.1 F 92 H 16 126/69 97 Room Air 01/28/24 02:53 Room Air 01/28/24 01:00 Room Air 01/28/24 00:00 98.5 F 82 16 105/61 L 97 Room Air 01/27/24 23:00 Room Air 01/27/24 21:00 Room Air 01/27/24 20:00 Room Air 01/27/24 20:00 98.6 F 82 18 127/62 100 Room Air 01/27/24 17:00 Room Air 01/27/24 16:00 97.8 F 86 18 123/72 98 Room Air 01/27/24 15:00 Room Air 01/27/24 13:00 98.1 F 76 21 91/51 L 100 01/27/24 13:00 Room Air 01/27/24 11:00 Room Air 01/27/24 09:00 Room Air Intake and Output 01/27/24 01/28/24 01/28/24 23:59 07:59 15:59 Intake Total 240 / 240 Output Total 1300 / 2300 Balance -1300 / -1514 240 / 240 Intake: Intake, Oral Amount 240 / 240 Output: Output, Urine Amount 650 / 1650 Output, Urine Amount (Catheter) 650 / 650 Urethral 650 / 650 Other: Number of Unmeasured Voids 0 Number of Bowel Movements 1 Weight 66.769 kg Patient Weight 01/28/24 23:59 Weight 66.769 kg Laboratory Results - last 24 hr 01/28/24 06:24: WBC 5.4, RBC 2.78 L, Hgb 8.8 L, Hct 27.9 L, MCV 100.4 H, MCH 31.5 H, MCHC 31.4 L, RDW 17.7 H, Plt Count 303, MPV 7.4, Neut % (Auto) 45.4, Lymph % (Auto) 44.8, Thayer % (Auto) 6.3, Eos % (Auto) 2.9, Baso % (Auto) 0.6, Neut # (Auto) 2.5, Lymph # (Auto) 2.4, Thayer # (Auto) 0.3, Eos # (Auto) 0.2, Baso # (Auto) 0.0, Sodium 135 L, Potassium 3.8, Chloride 104, Carbon Dioxide 24, Anion Gap 10.8, BUN 8, Creatinine 0.70, Estimated Creat Clear 52, Estimated GFR 82, Est GFR ( Amer) 99, Glucose 138 H, Calcium 8.6, Magnesium 1.9, Total Bilirubin 0.5, AST 31, ALT 21, Alkaline Phosphatase 80, Total Protein 5.3 L, Albumin 2.7 L, Globulin 2.6, Albumin/Globulin Ratio 1.0 L I & O for Labs for Last 24 Hours: Intake & Output 01/25/24 01/26/24 01/27/24 01/28/24 23:59 23:59 23:59 23:59 Intake Total 960 / 960 900 / 1140 546 / 786 240 / 240 Output Total 1400 / 2100 3050 / 3050 2300 / 2300 Balance -440 / -1140 -2150 / -1910 -1754 / -1514 240 / 240 Weight 67.585 kg 66.043 kg 65.952 kg 66.769 kg Constitutional: Present no acute distress, average body habitus and cooperative Head: Present atraumatic and normocephalic ENT: Present normal exam Respiratory: Present normal respiratory effort; Absent rhonchi, wheezes or crackles Cardiac: Present Reg Rate and Rhythm GI: Present soft and normal bowel sounds; Absent distention or tenderness Comment:: Chowdary in place Extremities: Present normal inspection, full ROM and edema (1+ to knees) Skin: Present intact; Absent erythema Neuro: Present Essential Tremor, Grossly Intact, alert, awake and moves all extremities Comment:: Oriented to self only Assessment and Plan *Assessment and plan (1) Weakness: Status: Acute Category: Medical Code(s): R53.1 - Weakness (2) Fall: Status: Acute Category: Medical Code(s): W19.XXXA - Unspecified fall, initial encounter (3) Anemia: Status: Acute Category: Medical Code(s): D64.9 - Anemia, unspecified (4) Metabolic acidosis: Status: Resolved Category: Medical Code(s): E87.20 - Acidosis, unspecified (5) Acute hypoxemic respiratory failure: Status: Acute Category: Medical Code(s): J96.01 - Acute respiratory failure with hypoxia (6) KRISTIE (acute kidney injury): Status: Acute Category: Medical Code(s): N17.9 - Acute kidney failure, unspecified (7) Acute hypokalemia: Status: Acute Category: Medical Code(s): E87.6 - Hypokalemia (8) Acidosis, lactic: Status: Resolved Category: Medical Code(s): E87.20 - Acidosis, unspecified (9) Diabetes mellitus, type 2: Status: Acute Qualifiers: Diabetes mellitus custodial insulin use: without custodial use Diabetes mellitus complication status: with other specified complication Qualified Co de(s): E11.69 - Type 2 diabetes mellitus with other specified complication Category: Medical Code(s): E11.9 - Type 2 diabetes mellitus without complications (10) Candidal dermatitis: Status: Acute Category: Medical Code(s): B37.2 - Candidiasis of skin and nail (11) Hypertension: Status: Acute Category: Medical Code(s): I10 - Essential (primary) hypertension (12) Sinus tachycardia: Status: Resolved Category: Medical Code(s): R00.0 - Tachycardia, unspecified Plan 73-year-old female with PMHx of insulin-dependent diabetes, resident from [facility] brought in by EMS to the emergency department with concern for SOB. EMS reports that patient was found on 2 L nasal cannula saturating only in the 70s, they placed her on 4 L and she improved up to the 90s. She was tachycardic and round with rates in the 110s, blood pressure with systolic of 110. on arrival patient workup with leukocytosis 18,000 with neutrophilia. Her VBG is concerning for metabolic acidosis pH 7.21, CO2 low at 26, bicarb low at 10, lactate 10.4. Patient's potassium on chemistry 3.0, this was repleted with IV potassium. KRISTIE with creatinine 1.7 up from normal baseline. Patient given fluids for this. Initial troponin 0.04, repeat troponin 0.05. LFTs nonactionable. Lipase negative. Urinalysis without concern for UTI. CT of the chest abdomen and pelvis without acute concern for any abnormalities. CT head without intracranial hemorrhage or intracranial abnormality. Findings discussed with ED. Agreed for admission. Patient medically stable for placement once guardianship established. APS evaluating and working with case management. Bladder training, Chowdary remains in place. Problems addressed as follows: Acute hypoxemic respiratory failure. Resolved Acute metabolic acidosis: likely dehydration, hypoxia KRISTIE: Resolved Case being evaluated by APS. Awaiting guardianship and then subsequent placement. WBC 5.4 Hgb 8.8 Potassium 3.8, Mg 1.9 - Iron studies normal - initiate MVI w/ iron for anemia today Urinary retention: completed bladder training, will remove today, monitor for retention. Continue tamsulosin 0.4 mg twice daily Hx of NIDDM: A1c normal if not overly controlled at 4.9. Continue metformin 500 mg twice daily. No insulin at this time. Rash concerning for Aby, continue nystatin powder and barrier cream in region. Heparin for dvt ppx protonix Full code PT and OT working with patient. Case management assisting with decision making capacity/potential guardianship for referral to rehab.
[2024-01-28] MEDS: METFORMIN 500MG TABLET 500 MG PO ×2 (08:18→16:45)
[2024-01-28] MEDS: MAGNESIUM OXIDE 400MG TABLET 400 MG PO ×2 (08:19→20:30)
[2024-01-28] MEDS: BUSPIRONE HCL 10 MG TABLET PO ×2 (08:19→20:31)
[2024-01-28] MEDS: FUROSEMIDE 40 MG TABLET PO (08:19)
[2024-01-28] MEDS: METOPROLOL TARTRATE 25MG TABLET 12.5 MG PO ×2 (08:19→20:30)
[2024-01-28] MEDS: ASPIRIN 81MG CHEWABLE TABLET 81 MG PO (08:19)
[2024-01-28] MEDS: HEPARIN SODIUM 5,000 UNIT/ML VIAL 5000 UNIT SQ ×2 (08:19→20:29)
[2024-01-28] MEDS: SIMETHICONE 80MG CHEWABLE TABLET 160 MG PO ×3 (08:19→20:30)
[2024-01-28] MEDS: SERTRALINE 100MG TABLET 100 MG PO (08:20)
[2024-01-28] MEDS: NYSTATIN TOPICAL POWDER 30GM TP ×2 (08:20→20:31)
[2024-01-28] MEDS: TAMSULOSIN 0.4MG CAPSULE 0.4 MG PO ×2 (08:20→20:32)
[2024-01-28] MEDS: LORazepam 0.5MG TABLET 0.5 MG PO ×2 (08:22→20:31)
[2024-01-28 08:24] LABS: Vitamin B12 382 pg/mL (239-931)
[2024-01-28 09:40] LABS: Iron 56 ug/dL (37-170)
[2024-01-28 09:49] LABS: Total Iron Binding Capacity 200 ug/dL (265-497)
[2024-01-28 10:16] LABS: Ferritin 149 ng/ml (11.1-264)
[2024-01-28] MEDS: PRENATAL MULTIVITAMIN W/IRON 1 EACH PO (16:45)
--- NOTE | 2024-01-28 18:10 | PC.NURSE ---
ALERT TO SELF AND BIRTHDAY. TOLERATING RA WELL. HAS HAD NO NEEDS OR C/O THUS FAR THIS SHIFT. REMOVED F/C, EARLIER THIS SHIFT, PT HAS >400ML IN BLADDER AT THIS TIME. WILL RE-SCAN AFTER SHE USES THE BATHROOM AND SEE IF F/C NEEDS TO BE RE-INSERTED. PT HAS BEEN VERY ANXIOUS TODAY AND IS VERY SCARED TO STAND UP AT ALL. HAS BEEN INCONTINENT OF BOWELS MULTIPLE TIMES. HASN'T HAD MUCH OF AN APPETITE. BED SAFETY IN USE. VSS.
--- NOTE | 2024-01-28 19:14 | PC.NURSE ---
PT FOUND TO HAVE OVER 400ML LEFT IN BLADDER AFTER VOIDING. PER MD FARLEY, NEW F/C INSERTED, 600ML OF PALE URINE OUT THUS FAR. PT TOLERATED WELL.
[2024-01-28] MEDS: hydrOXYzine pamoate 25MG CAPSULE 50 MG PO (20:30)
[2024-01-28] MEDS: FAMOTIDINE 20MG TABLET 20 MG PO (20:31)
[2024-01-29 04:00] VITALS: BP 103/55; PULSE 81; RESP 18; TEMP 36.8; O2SAT 97; BMI 24.2
[2024-01-29] MEDS: SIMETHICONE 80MG CHEWABLE TABLET 160 MG PO ×4 (05:14→20:59)
--- NOTE | 2024-01-29 05:43 | PC.NURSE ---
PATIENT QUIET. NO COMPLAINTS VOICED. LARSON CATH PATENT AND INTACT TO BSD, URINE CLEAR YELLOW.
[2024-01-29 08:00] VITALS: BP 101/51; PULSE 85; RESP 16; TEMP 36.8; O2SAT 97
[2024-01-29] MEDS: METFORMIN 500MG TABLET 500 MG PO ×2 (08:49→16:34)
[2024-01-29] MEDS: ASPIRIN 81MG CHEWABLE TABLET 81 MG PO (08:49)
[2024-01-29] MEDS: BUSPIRONE HCL 10 MG TABLET PO ×2 (08:49→20:59)
[2024-01-29] MEDS: METOPROLOL TARTRATE 25MG TABLET 12.5 MG PO ×2 (08:50→20:59)
[2024-01-29] MEDS: FUROSEMIDE 40 MG TABLET PO (08:50)
[2024-01-29] MEDS: NYSTATIN TOPICAL POWDER 30GM TP ×2 (08:50→20:58)
[2024-01-29] MEDS: HEPARIN SODIUM 5,000 UNIT/ML VIAL 5000 UNIT SQ ×2 (08:50→20:58)
[2024-01-29] MEDS: SERTRALINE 100MG TABLET 100 MG PO (08:50)
[2024-01-29] MEDS: TAMSULOSIN 0.4MG CAPSULE 0.4 MG PO ×2 (08:50→20:59)
[2024-01-29] MEDS: MAGNESIUM OXIDE 400MG TABLET 400 MG PO ×2 (08:50→20:59)
[2024-01-29] MEDS: LORazepam 0.5MG TABLET 0.5 MG PO ×2 (08:52→20:59)
[2024-01-29 12:00] VITALS: BP 139/65; PULSE 54; RESP 16; TEMP 36.8; O2SAT 93
[2024-01-29] MEDS: ACETAMINOPHEN 325MG TAB 650 MG PO (15:19)
[2024-01-29 16:00] VITALS: BP 94/55; PULSE 86; RESP 16; TEMP 36.6; O2SAT 100
--- NOTE | 2024-01-29 16:02 | EXP.ACUTE.PN ---
Subjective *Date: 01/29/24 *Time: 16:02 Interval history: No events overnight. Failed spontaneous void trial yesterday. Chowdary had to be replaced. Afebrile. Tolerating p.o. intake. Medical Exam Vital signs and Labs for Last 24 Hours: Vital Signs Temp Pulse Resp BP Pulse Ox O2 Del Method 01/29/24 15:00 Room Air 01/29/24 12:57 Room Air 01/29/24 12:00 98.2 F 54 L 16 139/65 93 L 01/29/24 10:55 Room Air 01/29/24 09:00 Room Air 01/29/24 08:00 Room Air 01/29/24 08:00 98.2 F 85 16 101/51 L 97 Room Air 01/29/24 06:44 Room Air 01/29/24 05:00 Room Air 01/29/24 04:00 98.3 F 81 18 103/55 L 97 Room Air 01/29/24 03:00 Room Air 01/29/24 01:00 Room Air 01/28/24 23:00 Room Air 01/28/24 20:54 Room Air 01/28/24 20:00 97.8 F 100 H 18 114/59 L 97 Room Air 01/28/24 19:55 98 Room Air 01/28/24 18:31 Room Air 01/28/24 16:51 Room Air Intake and Output 01/29/24 01/29/24 01/29/24 07:59 15:59 23:59 Intake Total 120 / 120 Output Total 1000 / 1000 Balance -1000 / -880 120 / -880 Intake: Intake, Oral Amount 120 / 120 Output: Output, Urine Amount 1000 / 1000 Other: Number of Unmeasured Voids 1 Weight 65.998 kg Patient Weight 01/29/24 23:59 Weight 65.998 kg I & O for Labs for Last 24 Hours: Intake & Output 01/26/24 01/27/24 01/28/24 01/29/24 23:59 23:59 23:59 23:59 Intake Total 900 / 1140 546 / 786 840 / 840 120 / 120 Output Total 3050 / 3050 2300 / 2300 1200 / 1200 1000 / 1000 Balance -2150 / -1910 -1754 / -1514 -360 / -360 -880 / -880 Weight 66.043 kg 65.952 kg 66.769 kg 65.998 kg Constitutional: Present no acute distress, average body habitus and cooperative Head: Present atraumatic and normocephalic ENT: Present normal exam Respiratory: Present normal respiratory effort; Absent rhonchi, wheezes or crackles Cardiac: Present Reg Rate and Rhythm GI: Present soft and normal bowel sounds; Absent distention or tenderness Comment:: Chowdary in place Extremities: Present normal inspection, full ROM and edema (1+ to knees) Skin: Present intact; Absent erythema Neuro: Present Essential Tremor, Grossly Intact, alert, awake and moves all extremities Comment:: Oriented to self only Assessment and Plan *Assessment and plan (1) Weakness: Status: Acute Category: Medical Code(s): R53.1 - Weakness (2) Urinary retention: Status: Acute Category: Medical Code(s): R33.9 - Retention of urine, unspecified (3) Fall: Status: Acute Category: Medical Code(s): W19.XXXA - Unspecified fall, initial encounter (4) Anemia: Status: Acute Category: Medical Code(s): D64.9 - Anemia, unspecified (5) Metabolic acidosis: Status: Resolved Category: Medical Code(s): E87.20 - Acidosis, unspecified (6) Acute hypoxemic respiratory failure: Status: Acute Category: Medical Code(s): J96.01 - Acute respiratory failure with hypoxia (7) KRISTIE (acute kidney injury): Status: Acute Category: Medical Code(s): N17.9 - Acute kidney failure, unspecified (8) Acute hypokalemia: Status: Acute Category: Medical Code(s): E87.6 - Hypokalemia (9) Acidosis, lactic: Status: Resolved Category: Medical Code(s): E87.20 - Acidosis, unspecified (10) Diabetes mellitus, type 2: Status: Acute Qualifiers: Diabetes mellitus [facility] insulin use: without [facility] use Diabetes mellitus complication status: with other specified complication Qualified Code(s): E11.69 - Type 2 diabetes mellitus with other specified complication Category: Medical Code(s): E11.9 - Type 2 diabetes mellitus without complications (11) Candidal dermatitis: Status: Acute Category: Medical Code(s): B37.2 - Candidiasis of skin and nail (12) Hypertension: Status: Acute Category: Medical Code(s): I10 - Essential (primary) hypertension (13) Sinus tachycardia: Status: Resolved Category: Medical Code(s): R00.0 - Tachycardia, unspecified Plan 73-year-old female with PMHx of insulin-dependent diabetes, resident from [facility] brought in by EMS to the emergency department with concern for SOB. EMS reports that patient was found on 2 L nasal cannula saturating only in the 70s, they placed her on 4 L and she improved up to the 90s. She was tachycardic and round with rates in the 110s, blood pressure with systolic of 110. on arrival patient workup with leukocytosis 18,000 with neutrophilia. Her VBG is concerning for metabolic acidosis pH 7.21, CO2 low at 26, bicarb low at 10, lactate 10.4. Patient's potassium on chemistry 3.0, this was repleted with IV potassium. KRISTIE with creatinine 1.7 up from normal baseline. Patient given fluids for this. Initial troponin 0.04, repeat troponin 0.05. LFTs nonactionable. Lipase negative. Urinalysis without concern for UTI. CT of the chest abdomen and pelvis without acute concern for any abnormalities. CT head without intracranial hemorrhage or intracranial abnormality. Findings discussed with ED. Agreed for admission. Patient medically stable for placement once guardianship established. APS evaluating and working with case management. Bladder training, Chowdary remains in place. Problems addressed as follows: Acute hypoxemic respiratory failure. Resolved Acute metabolic acidosis: likely dehydration, hypoxia KRISTIE: Resolved Case being evaluated by APS. Awaiting guardianship and then subsequent placement. Ordering labs weekly -Continue MVI w/ iron for anemia today Urinary retention: completed bladder training, failed removal of Chowdary. Replaced yesterday. Will continue tamsulosin 0.4 mg twice daily Hx of NIDDM: A1c normal if not overly controlled at 4.9. Continue metformin 500 mg twice daily. No insulin at this time. Heparin for dvt ppx protonix Full code PT and OT working with patient. Case management assisting with decision making capacity/potential guardianship for referral to rehab.
[2024-01-29] MEDS: PRENATAL MULTIVITAMIN W/IRON 1 EACH PO (16:33)
--- NOTE | 2024-01-29 18:26 | PC.NURSE ---
PT ALERT TO SELF THIS SHIFT. TOLERATING RA WELL. HAS BEEN VERY PLEASANT TODAY, UP TO THE CHAIR MAJORITY OF SHIFT, BETTER APPETITE TODAY. F/C REMAINS IN PLACE DRAINING BRIGHT YELLOW URINE. PT HAS REMAINED INCONTINENT TO BOWEL, HAD ONE VERY LARGE LOOSE BM THIS SHIFT. CREAM/POWDER MIXTURE APPLIED TO INNER LEFT THIGH AND BOTTOM. NO C/O OR NEEDS THUS FAR. BED SAFETY IN PLACE. VSS.
[2024-01-29 20:00] VITALS: BP 90/60; PULSE 93; RESP 22; TEMP 36.7; O2SAT 100; O2SAT 99
[2024-01-29] MEDS: hydrOXYzine pamoate 25MG CAPSULE 50 MG PO (20:59)
[2024-01-29] MEDS: FAMOTIDINE 20MG TABLET 20 MG PO (20:59)
[2024-01-30] MEDS: SIMETHICONE 80MG CHEWABLE TABLET 160 MG PO ×4 (02:04→20:41)
[2024-01-30 04:00] VITALS: BP 117/66; PULSE 88; RESP 16; TEMP 37.1; O2SAT 98; BMI 24.0
--- NOTE | 2024-01-30 06:46 | PC.NURSE ---
ORIENTED TO SELF. IMPULSIVE AT TIMES TO GET OOB. INCONTIENT LARGE LIQ STOOL AT THE BEGINNING OF THE SHIFT. F/C TO BSD, URINE CLEAR YELLOW. 1 + PITTING EDEMA BLEs. HIGH FALL RISK. BED ALARM IN USE.
--- NOTE | 2024-01-30 07:40 | EXP.ACUTE.PN ---
Subjective *Date: 01/30/24 *Time: 13:37 Interval history: No events overnight. Pleasant on exam. Stable on room air. Afebrile. Tolerating p.o. intake. Medical Exam Vital signs and Labs for Last 24 Hours: Vital Signs Temp Pulse Resp BP Pulse Ox O2 Del Method 01/30/24 06:33 Room Air 01/30/24 05:00 Room Air 01/30/24 04:00 98.7 F 88 16 117/66 98 Room Air 01/30/24 03:00 Room Air 01/30/24 01:00 Room Air 01/29/24 23:00 Room Air 01/29/24 21:00 Room Air 01/29/24 20:00 98.0 F 93 H 22 90/60 L 99 Room Air 01/29/24 20:00 100 Room Air 01/29/24 18:32 Room Air 01/29/24 16:57 Room Air 01/29/24 16:00 97.9 F 86 16 94/55 L 100 Room Air 01/29/24 15:00 Room Air 01/29/24 12:57 Room Air 01/29/24 12:00 98.2 F 54 L 16 139/65 93 L 01/29/24 10:55 Room Air 01/29/24 09:00 Room Air 01/29/24 08:00 Room Air 01/29/24 08:00 98.2 F 85 16 101/51 L 97 Room Air Intake and Output 01/29/24 01/29/24 01/30/24 15:59 23:59 07:59 Intake Total 360 / 1080 480 / 1080 240 / 240 Output Total 700 / 1700 650 / 650 Balance 360 / -620 -220 / -620 -410 / -410 Intake: Intake, Oral Amount 360 / 1080 480 / 1080 240 / 240 Output: Output, Urine Amount 700 / 1700 650 / 650 Other: Number of Unmeasured Voids 1 Number of Bowel Movements 1 Weight 65.544 kg Patient Weight 01/30/24 23:59 Weight 65.544 kg I & O for Labs for Last 24 Hours: Intake & Output 01/27/24 01/28/24 01/29/24 01/30/24 23:59 23:59 23:59 23:59 Intake Total 546 / 786 840 / 840 840 / 1080 240 / 240 Output Total 2300 / 2300 1200 / 1200 1700 / 1700 650 / 650 Balance -1754 / -1514 -360 / -360 -860 / -620 -410 / -410 Weight 65.952 kg 66.769 kg 65.998 kg 65.544 kg Constitutional: Present no acute distress, average body habitus and cooperative Head: Present atraumatic and normocephalic ENT: Present normal exam Respiratory: Present normal respiratory effort; Absent rhonchi, wheezes or crackles Cardiac: Present Reg Rate and Rhythm GI: Present soft and normal bowel sounds; Absent distention or tenderness Comment:: Chowdary in place Extremities: Present normal inspection, full ROM and edema (1+ to knees) Skin: Present intact; Absent erythema Neuro: Present Essential Tremor, Grossly Intact, alert, awake and moves all extremities Comment:: Oriented to self only Assessment and Plan *Assessment and plan (1) Weakness: Status: Acute Category: Medical Code(s): R53.1 - Weakness (2) Urinary retention: Status: Acute Category: Medical Code(s): R33.9 - Retention of urine, unspecified (3) Fall: Status: Acute Category: Medical Code(s): W19.XXXA - Unspecified fall, initial encounter (4) Anemia: Status: Acute Category: Medical Code(s): D64.9 - Anemia, unspecified (5) Metabolic acidosis: Status: Resolved Category: Medical Code(s): E87.20 - Acidosis, unspecified (6) Acute hypoxemic respiratory failure: Status: Acute Category: Medical Code(s): J96.01 - Acute respiratory failure with hypoxia (7) KRISTIE (acute kidney injury): Status: Acute Category: Medical Code(s): N17.9 - Acute kidney failure, unspecified (8) Acute hypokalemia: Status: Acute Category: Medical Code(s): E87.6 - Hypokalemia (9) Acidosis, lactic: Status: Resolved Category: Medical Code(s): E87.20 - Acidosis, unspecified (10) Diabetes mellitus, type 2: Status: Acute Qualifiers: Diabetes mellitus [facility] insulin use: without [facility] use Diabetes mellitus complication status: with other specified complication Qualified Code(s): E11.69 - Type 2 diabetes mellitus with other specified complication Category: Medical Code(s): E11.9 - Type 2 diabetes mellitus without complications (11) Candidal dermatitis: Status: Acute Category: Medical Code(s): B37.2 - Candidiasis of skin and nail (12) Hypertension: Status: Acute Category: Medical Code(s): I10 - Essential (primary) hypertension (13) Sinus tachycardia: Status: Resolved Category: Medical Code(s): R00.0 - Tachycardia, unspecified Plan 73-year-old female with PMHx of insulin-dependent diabetes, resident from [facility] brought in by EMS to the emergency department with concern for SOB. EMS reports that patient was found on 2 L nasal cannula saturating only in the 70s, they placed her on 4 L and she improved up to the 90s. She was tachycardic and round with rates in the 110s, blood pressure with systolic of 110. on arrival patient workup with leukocytosis 18,000 with neutrophilia. Her VBG is concerning for metabolic acidosis pH 7.21, CO2 low at 26, bicarb low at 10, lactate 10.4. Patient's potassium on chemistry 3.0, this was repleted with IV potassium. KRISTIE with creatinine 1.7 up from normal baseline. Patient given fluids for this. Initial troponin 0.04, repeat troponin 0.05. LFTs nonactionable. Lipase negative. Urinalysis without concern for UTI. CT of the chest abdomen and pelvis without acute concern for any abnormalities. CT head without intracranial hemorrhage or intracranial abnormality. Findings discussed with ED. Agreed for admission. Patient medically stable for placement once guardianship established. APS evaluating and working with case management. Bladder training, Chowdary remains in place. Problems addressed as follows: Acute hypoxemic respiratory failure. Resolved Acute metabolic acidosis: likely dehydration, hypoxia KRISTIE: Resolved Case being evaluated by APS. Awaiting guardianship and then subsequent placement. Ordering labs weekly -Continue MVI w/ iron for anemia today Urinary retention: Failed attempt to remove Chowdary. Will continue to have Chowdary during admission. Will continue tamsulosin 0.4 mg twice daily Hx of NIDDM: A1c normal if not overly controlled at 4.9. Continue metformin 500 mg twice daily. No insulin at this time. Heparin for dvt ppx protonix Full code PT and OT working with patient. Case management assisting with decision making capacity/potential guardianship for referral to rehab.
[2024-01-30 08:00] VITALS: BP 112/58; PULSE 85; RESP 16; TEMP 36.8; O2SAT 96
[2024-01-30] MEDS: METOPROLOL TARTRATE 25MG TABLET 12.5 MG PO ×2 (08:24→20:42)
[2024-01-30] MEDS: BUSPIRONE HCL 10 MG TABLET PO ×2 (08:24→20:42)
[2024-01-30] MEDS: FUROSEMIDE 40 MG TABLET PO (08:24)
[2024-01-30] MEDS: METFORMIN 500MG TABLET 500 MG PO ×2 (08:24→16:22)
[2024-01-30] MEDS: MAGNESIUM OXIDE 400MG TABLET 400 MG PO ×2 (08:24→20:42)
[2024-01-30] MEDS: SERTRALINE 100MG TABLET 100 MG PO (08:24)
[2024-01-30] MEDS: ASPIRIN 81MG CHEWABLE TABLET 81 MG PO (08:24)
[2024-01-30] MEDS: NYSTATIN TOPICAL POWDER 30GM TP ×2 (08:24→20:43)
[2024-01-30] MEDS: TAMSULOSIN 0.4MG CAPSULE 0.4 MG PO ×2 (08:24→20:42)
[2024-01-30] MEDS: HEPARIN SODIUM 5,000 UNIT/ML VIAL 5000 UNIT SQ ×2 (08:24→20:42)
[2024-01-30] MEDS: LORazepam 0.5MG TABLET 0.5 MG PO ×2 (08:26→20:42)
[2024-01-30] MEDS: CALCIUM POLYCARBOPHIL 625MG TAB 1250 MG PO (13:50)
[2024-01-30 15:52] VITALS: BP 122/64; PULSE 94; RESP 18; TEMP 36.4; O2SAT 93
[2024-01-30] MEDS: PRENATAL MULTIVITAMIN W/IRON 1 EACH PO (16:20)
--- NOTE | 2024-01-30 17:17 | PC.NURSE ---
no new changes from previous shift. pt doesnt eat much at meals but will eat finger foods, puddings and ice cream. pt also likes diet pepsi.
--- NOTE | 2024-01-30 18:54 | PC.NURSE ---
ate a little, but may need assistance or company while eating
[2024-01-30 20:00] VITALS: BP 116/67; PULSE 92; RESP 20; TEMP 36.9; O2SAT 95
[2024-01-30] MEDS: hydrOXYzine pamoate 25MG CAPSULE 50 MG PO (20:42)
[2024-01-30] MEDS: FAMOTIDINE 20MG TABLET 20 MG PO (20:42)
[2024-01-31] MEDS: SIMETHICONE 80MG CHEWABLE TABLET 160 MG PO ×4 (03:11→20:47)
[2024-01-31 04:00] VITALS: BP 106/56; PULSE 86; RESP 16; TEMP 36.8; O2SAT 97; BMI 24.4
--- NOTE | 2024-01-31 05:11 | PC.NURSE ---
NO CHANGES NOTED IN PATIENT'S CONDITION. PLEASANTLY CONFUSED. ORIENTED TO SELF. . URINE CLEAR YELLOW. ALRSON CATH PATENT TO BSD, UOP ADEQUATE. NO COMPLAINTS OR INDICATIONS OF PAIN. BED ALARM IN USE.
[2024-01-31 08:00] VITALS: BP 115/62; PULSE 83; RESP 18; TEMP 36.6; O2SAT 95
[2024-01-31] MEDS: SERTRALINE 100MG TABLET 100 MG PO (08:08)
[2024-01-31] MEDS: HEPARIN SODIUM 5,000 UNIT/ML VIAL 5000 UNIT SQ ×2 (08:08→20:46)
[2024-01-31] MEDS: METOPROLOL TARTRATE 25MG TABLET 12.5 MG PO ×2 (08:08→20:47)
[2024-01-31] MEDS: CALCIUM POLYCARBOPHIL 625MG TAB 1250 MG PO (08:08)
[2024-01-31] MEDS: ASPIRIN 81MG CHEWABLE TABLET 81 MG PO (08:09)
[2024-01-31] MEDS: NYSTATIN TOPICAL POWDER 30GM TP ×2 (08:09→20:47)
[2024-01-31] MEDS: METFORMIN 500MG TABLET 500 MG PO ×2 (08:09→18:34)
[2024-01-31] MEDS: BUSPIRONE HCL 10 MG TABLET PO ×2 (08:09→20:47)
[2024-01-31] MEDS: FUROSEMIDE 40 MG TABLET PO (08:09)
[2024-01-31] MEDS: MAGNESIUM OXIDE 400MG TABLET 400 MG PO ×2 (08:09→20:46)
[2024-01-31] MEDS: LORazepam 0.5MG TABLET 0.5 MG PO ×2 (08:09→20:50)
[2024-01-31] MEDS: TAMSULOSIN 0.4MG CAPSULE 0.4 MG PO ×2 (08:09→20:48)
--- NOTE | 2024-01-31 11:31 | EXP.ACUTE.PN ---
Subjective *Date: 01/31/24 *Time: 11:31 Interval history: No acute events overnight. On room air. Patient has no complaints. Tolerating p.o. intake. Medical Exam Vital signs and Labs for Last 24 Hours: Vital Signs Temp Pulse Resp BP Pulse Ox O2 Del Method 01/31/24 11:00 Room Air 01/31/24 09:00 Room Air 01/31/24 08:09 Room Air 01/31/24 08:00 97.8 F 83 18 115/62 95 Room Air 01/31/24 06:35 Room Air 01/31/24 05:00 Room Air 01/31/24 04:00 98.2 F 86 16 106/56 L 97 Room Air 01/31/24 03:00 Room Air 01/31/24 01:00 Room Air 01/30/24 23:00 Room Air 01/30/24 21:00 Room Air 01/30/24 20:00 95 Room Air 01/30/24 20:00 98.5 F 92 H 20 116/67 95 Room Air 01/30/24 18:23 Room Air 01/30/24 17:00 Room Air 01/30/24 15:52 97.5 F L 94 H 18 122/64 93 L Room Air 01/30/24 14:43 Room Air 01/30/24 13:00 Room Air Intake and Output 01/30/24 01/31/24 01/31/24 23:59 07:59 15:59 Intake Total 170 / 1160 240 / 480 240 / 480 Output Total 400 / 1050 600 / 600 Balance -230 / 110 -360 / -120 240 / -120 Intake: Intake, Oral Amount 170 / 1160 240 / 480 240 / 480 Output: Output, Urine Amount 600 / 600 Output, Urine Amount (Catheter) 400 / 400 Urethral 400 / 400 Other: Number of Unmeasured Voids 1 Number of Bowel Movements 1 1 Weight 66.587 kg Patient Weight 01/31/24 23:59 Weight 66.587 kg I & O for Labs for Last 24 Hours: Intake & Output 01/28/24 01/29/24 01/30/24 01/31/24 23:59 23:59 23:59 23:59 Intake Total 840 / 840 840 / 1080 920 / 1160 480 / 480 Output Total 1200 / 1200 1700 / 1700 1050 / 1050 600 / 600 Balance -360 / -360 -860 / -620 -130 / 110 -120 / -120 Weight 66.769 kg 65.998 kg 65.544 kg 66.587 kg Constitutional: Present no acute distress, average body habitus and cooperative Head: Present atraumatic and normocephalic ENT: Present normal exam Respiratory: Present normal respiratory effort; Absent rhonchi, wheezes or crackles Cardiac: Present Reg Rate and Rhythm GI: Present soft and normal bowel sounds; Absent distention or tenderness Comment:: Chowdary in place Extremities: Present normal inspection, full ROM and edema (1+ to knees) Skin: Present intact; Absent erythema Neuro: Present Essential Tremor, Grossly Intact, alert, awake and moves all extremities Comment:: Oriented to self only Assessment and Plan *Assessment and plan (1) Weakness: Status: Acute Category: Medical Code(s): R53.1 - Weakness (2) Urinary retention: Status: Acute Category: Medical Code(s): R33.9 - Retention of urine, unspecified (3) Fall: Status: Acute Category: Medical Code(s): W19.XXXA - Unspecified fall, initial encounter (4) Anemia: Status: Acute Category: Medical Code(s): D64.9 - Anemia, unspecified (5) Metabolic acidosis: Status: Resolved Category: Medical Code(s): E87.20 - Acidosis, unspecified (6) Acute hypoxemic respiratory failure: Status: Resolved Category: Medical Code(s): J96.01 - Acute respiratory failure with hypoxia (7) KRISTIE (acute kidney injury): Status: Resolved Category: Medical Code(s): N17.9 - Acute kidney failure, unspecified (8) Acute hypokalemia: Status: Resolved Category: Medical Code(s): E87.6 - Hypokalemia (9) Diabetes mellitus, type 2: Status: Acute Qualifiers: Diabetes mellitus penitentiary insulin use: without superintendent container terminal use Diabetes mellitus complication status: with other specified complication Qualified Code(s): E11.69 - Type 2 diabetes mellitus with other specified complication Category: Medical Code(s): E11.9 - Type 2 diabetes mellitus without complications (10) Candidal dermatitis: Status: Acute Category: Medical Code(s): B37.2 - Candidiasis of skin and nail (11) Hypertension: Status: Acute Category: Medical Code(s): I10 - Essential (primary) hypertension (12) Sinus tachycardia: Status: Resolved Category: Medical Code(s): R00.0 - Tachycardia, unspecified Plan 73-year-old female with PMHx of insulin-dependent diabetes, resident from [facility] brought in by EMS to the emergency department with concern for SOB. EMS reports that patient was found on 2 L nasal cannula saturating only in the 70s, they placed her on 4 L and she improved up to the 90s. She was tachycardic and round with rates in the 110s, blood pressure with systolic of 110. on arrival patient workup with leukocytosis 18,000 with neutrophilia. Her VBG is concerning for metabolic acidosis pH 7.21, CO2 low at 26, bicarb low at 10, lactate 10.4. Patient's potassium on chemistry 3.0, this was repleted with IV potassium. KRISTIE with creatinine 1.7 up from normal baseline. Patient given fluids for this. Initial troponin 0.04, repeat troponin 0.05. LFTs nonactionable. Lipase negative. Urinalysis without concern for UTI. CT of the chest abdomen and pelvis without acute concern for any abnormalities. CT head without intracranial hemorrhage or intracranial abnormality. Findings discussed with ED. Agreed for admission. Patient medically stable for placement once guardianship established. APS evaluating and working with case management. Bladder training, Chowdary remains in place. Problems addressed as follows: Acute hypoxemic respiratory failure. Resolved Acute metabolic acidosis: likely dehydration, hypoxia KRISTIE: Resolved Case being evaluated by APS. Awaiting guardianship and then subsequent placement. Ordering labs weekly -Continue MVI w/ iron for anemia today Urinary retention: Failed attempt to remove Chowdary. Will continue to have Chowdary during admission. Will continue tamsulosin 0.4 mg twice daily Hx of NIDDM: A1c normal if not overly controlled at 4.9. Continue metformin 500 mg twice daily. No insulin at this time. Heparin for dvt ppx protonix Full code PT and OT working with patient. Case management assisting with decision making capacity/potential guardianship for referral to rehab.
[2024-01-31 15:58] VITALS: BP 102/62; PULSE 89; RESP 19; TEMP 36.6; O2SAT 94
--- NOTE | 2024-01-31 17:14 | PC.NURSE ---
pt needs constant reminders and coaching when preforming task such as eating, coloring, swallowing medication. pt has no teeth, does well when meat is cut up in small pieces. techs gave pt a radio. pt seems to of had a good day and rested on and off. cb within reach and bed alarm on for pt safety. no needs at this time.
[2024-01-31] MEDS: PRENATAL MULTIVITAMIN W/IRON 1 EACH PO (18:34)
[2024-01-31 20:00] VITALS: BP 127/59; PULSE 101; RESP 16; TEMP 36.9; O2SAT 100
[2024-01-31] MEDS: hydrOXYzine pamoate 25MG CAPSULE 50 MG PO (20:50)
[2024-01-31] MEDS: FAMOTIDINE 20MG TABLET 20 MG PO (20:51)
[2024-02-01] MEDS: SIMETHICONE 80MG CHEWABLE TABLET 160 MG PO ×4 (02:44→20:23)
[2024-02-01 03:48] VITALS: BP 112/56; PULSE 77; RESP 16; TEMP 36.5; O2SAT 93; BMI 24.5
--- NOTE | 2024-02-01 06:01 | PC.NURSE ---
pt done well this shift. had one bowel movement. no complaints of pain. bed alarm on.
[2024-02-01 07:40] VITALS: BP 128/77; PULSE 71; RESP 22; TEMP 36.6; O2SAT 96
--- NOTE | 2024-02-01 07:59 | EXP.ACUTE.PN ---
Subjective *Date: 02/01/24 *Time: 11:09 Interval history: No acute events overnight. On room air. Patient has no complaints. Tolerating p.o. intake. Discussed taking patient outside today. She would like to get out and get some fresh air. Nursing to help coordinate this. Medical Exam Vital signs and Labs for Last 24 Hours: Vital Signs Temp Pulse Resp BP Pulse Ox O2 Del Method 02/01/24 07:40 98 F 71 22 128/77 96 Room Air 02/01/24 07:00 Room Air 02/01/24 05:00 Room Air 02/01/24 03:48 97.7 F 77 16 112/56 L 93 L Room Air 02/01/24 03:00 Room Air 02/01/24 01:00 Room Air 01/31/24 23:00 Room Air 01/31/24 21:00 Room Air 01/31/24 20:00 98.4 F 101 H 16 127/59 L 100 Room Air 01/31/24 19:43 Room Air 01/31/24 18:05 Room Air 01/31/24 17:00 Room Air 01/31/24 15:58 97.8 F 89 19 102/62 L 94 L Room Air 01/31/24 15:00 Room Air 01/31/24 13:00 Room Air 01/31/24 11:00 Room Air 01/31/24 09:00 Room Air 01/31/24 08:09 Room Air 01/31/24 08:00 97.8 F 83 18 115/62 95 Room Air Intake and Output 01/31/24 01/31/24 02/01/24 15:59 23:59 07:59 Intake Total 480 / 1400 480 / 1400 470 / 470 Output Total 725 / 1325 100 / 100 Balance -245 / 75 480 / 75 370 / 370 Intake: Intake, Oral Amount 480 / 1400 480 / 1400 470 / 470 Output: Output, Urine Amount 725 / 1325 100 / 100 Other: Number of Voids 0 Number of Unmeasured Voids 0 Number of Bowel Movements 1 Weight 66.723 kg Patient Weight 02/01/24 23:59 Weight 66.723 kg I & O for Labs for Last 24 Hours: Intake & Output 01/29/24 01/30/24 01/31/24 02/01/24 23:59 23:59 23:59 23:59 Intake Total 840 / 1080 920 / 1160 1200 / 1400 470 / 470 Output Total 1700 / 1700 1050 / 1050 1325 / 1325 100 / 100 Balance -860 / -620 -130 / 110 -125 / 75 370 / 370 Weight 65.998 kg 65.544 kg 66.587 kg 66.723 kg Constitutional: Present no acute distress, average body habitus and cooperative Head: Present atraumatic and normocephalic ENT: Present normal exam Respiratory: Present normal respiratory effort; Absent rhonchi, wheezes or crackles Cardiac: Present Reg Rate and Rhythm GI: Present soft and normal bowel sounds; Absent distention or tenderness Comment:: Chowdary in place Extremities: Present normal inspection, full ROM and edema (1+ to knees) Skin: Present intact; Absent erythema Neuro: Present Essential Tremor, Grossly Intact, alert, awake and moves all extremities Comment:: Oriented to self only Assessment and Plan *Assessment and plan (1) Weakness: Status: Acute Category: Medical Code(s): R53.1 - Weakness (2) Urinary retention: Status: Acute Category: Medical Code(s): R33.9 - Retention of urine, unspecified (3) Fall: Status: Acute Category: Medical Code(s): W19.XXXA - Unspecified fall, initial encounter (4) Anemia: Status: Acute Category: Medical Code(s): D64.9 - Anemia, unspecified (5) Metabolic acidosis: Status: Resolved Category: Medical Code(s): E87.20 - Acidosis, unspecified (6) Acute hypoxemic respiratory failure: Status: Resolved Category: Medical Code(s): J96.01 - Acute respiratory failure with hypoxia (7) KRISTIE (acute kidney injury): Status: Resolved Category: Medical Code(s): N17.9 - Acute kidney failure, unspecified (8) Acute hypokalemia: Status: Resolved Category: Medical Code(s): E87.6 - Hypokalemia (9) Diabetes mellitus, type 2: Status: Acute Qualifiers: Diabetes mellitus terminal computer operator insulin use: without skilled nursing use Diabetes mellitus complication status: with other specified complication Qualified Code(s): E11.69 - Type 2 diabetes mellitus with other specified complication Category: Medical Code(s): E11.9 - Type 2 diabetes mellitus without complications (10) Candidal dermatitis: Status: Acute Category: Medical Code(s): B37.2 - Candidiasis of skin and nail (11) Hypertension: Status: Acute Category: Medical Code(s): I10 - Essential (primary) hypertension (12) Sinus tachycardia: Status: Resolved Category: Medical Code(s): R00.0 - Tachycardia, unspecified Plan 73-year-old female with PMHx of insulin-dependent diabetes, resident from [facility] brought in by EMS to the emergency department with concern for SOB. EMS reports that patient was found on 2 L nasal cannula saturating only in the 70s, they placed her on 4 L and she improved up to the 90s. She was tachycardic and round with rates in the 110s, blood pressure with systolic of 110. on arrival patient workup with leukocytosis 18,000 with neutrophilia. Her VBG is concerning for metabolic acidosis pH 7.21, CO2 low at 26, bicarb low at 10, lactate 10.4. Patient's potassium on chemistry 3.0, this was repleted with IV potassium. KRISTIE with creatinine 1.7 up from normal baseline. Patient given fluids for this. Initial troponin 0.04, repeat troponin 0.05. LFTs nonactionable. Lipase negative. Urinalysis without concern for UTI. CT of the chest abdomen and pelvis without acute concern for any abnormalities. CT head without intracranial hemorrhage or intracranial abnormality. Findings discussed with ED. Agreed for admission. Patient medically stable for placement once guardianship established. APS evaluating and working with case management. Bladder training, Chowdary remains in place. Problems addressed as follows: Acute hypoxemic respiratory failure. Resolved Acute metabolic acidosis: likely dehydration, hypoxia KRISTIE: Resolved Case being evaluated by APS. Awaiting guardianship and then subsequent placement. CBC, BMP, magnesium ordered for the morning. -Continue MVI w/ iron for anemia today Urinary retention: Failed attempt to remove Chowdary. Will continue to have Chowdary during admission. Will continue tamsulosin 0.4 mg twice daily Hx of NIDDM: A1c normal if not overly controlled at 4.9. Continue metformin 500 mg twice daily. No insulin at this time. Heparin for dvt ppx protonix Full code PT and OT working with patient. Case management assisting with decision making capacity/potential guardianship for referral to rehab.
[2024-02-01] MEDS: CALCIUM POLYCARBOPHIL 625MG TAB 1250 MG PO (08:24)
[2024-02-01] MEDS: FUROSEMIDE 40 MG TABLET PO (08:24)
[2024-02-01] MEDS: ASPIRIN 81MG CHEWABLE TABLET 81 MG PO (08:24)
[2024-02-01] MEDS: METOPROLOL TARTRATE 25MG TABLET 12.5 MG PO ×2 (08:24→20:24)
[2024-02-01] MEDS: SERTRALINE 100MG TABLET 100 MG PO (08:25)
[2024-02-01] MEDS: METFORMIN 500MG TABLET 500 MG PO ×2 (08:25→16:47)
[2024-02-01] MEDS: HEPARIN SODIUM 5,000 UNIT/ML VIAL 5000 UNIT SQ ×2 (08:25→20:24)
[2024-02-01] MEDS: LORazepam 0.5MG TABLET 0.5 MG PO ×2 (08:25→20:24)
[2024-02-01] MEDS: BUSPIRONE HCL 10 MG TABLET PO ×2 (08:25→20:24)
[2024-02-01] MEDS: NYSTATIN TOPICAL POWDER 30GM TP ×2 (08:25→20:24)
[2024-02-01] MEDS: TAMSULOSIN 0.4MG CAPSULE 0.4 MG PO ×2 (08:25→20:24)
[2024-02-01] MEDS: MAGNESIUM OXIDE 400MG TABLET 400 MG PO ×2 (08:25→20:24)
[2024-02-01 16:00] VITALS: BP 119/70; PULSE 84; RESP 24; TEMP 36.6; O2SAT 97
--- NOTE | 2024-02-01 16:13 | PC.NURSE ---
pt seems to of had a good day. pt transfered to wheelchair with standby assist. tech and nurse took pt around the unit. with permission by this nurse and tech took pt outside, tolerating well. pt back in her room coloring and watching tv. bowel movement this shift also. cb and personal items within reach, bed and chair alarm on for pt safety.
[2024-02-01] MEDS: PRENATAL MULTIVITAMIN W/IRON 1 EACH PO (16:47)
[2024-02-01] MEDS: ACETAMINOPHEN 325MG TAB 650 MG PO (16:48)
[2024-02-01 20:00] VITALS: BP 115/61; PULSE 71; RESP 17; TEMP 36.8; O2SAT 97
[2024-02-01] MEDS: FAMOTIDINE 20MG TABLET 20 MG PO (20:24)
[2024-02-01] MEDS: hydrOXYzine pamoate 25MG CAPSULE 50 MG PO (20:24)
[2024-02-02] VITALS: BP 120/58; PULSE 72; RESP 18; TEMP 36.9; O2SAT 98
[2024-02-02] MEDS: SIMETHICONE 80MG CHEWABLE TABLET 160 MG PO ×2 (01:33→08:09)
[2024-02-02 04:00] VITALS: BP 113/53; PULSE 76; RESP 16; TEMP 36.9; O2SAT 92; BMI 24.5
--- NOTE | 2024-02-02 04:59 | PC.NURSE ---
Pt is alert to self. Rested well throughout the night. BM this shift. Chowdary in place and draining. No complaints from patient. Bed alarm on. Call light in place.
[2024-02-02 06:35] LABS: Basophils # 0.1 K/mm3 (0-0.2); Basophils % 0.9 % (0.1-2.0); Eosinophils # 0.4 K/mm3 (0.0-0.4); Eosinophils % 6.1 % (0.1-12.0); Hematocrit 27.5 % (37.0-47.0); Hemoglobin 9.2 g/dL (12.2-16.2); Lymphocytes # 2.8 K/mm3 (0.7-4.5); Lymphocytes % 46.3 % (10-50); Mean Corpuscular HGB Conc 33.4 g/dL (31.8-35.4); Mean Corpuscular Hemoglobin 32.7 pg (27.0-31.2); Mean Corpuscular Volume 97.8 fl (81-99); Mean Platelet Volume 7.6 fl (7.4-10.4); Monocytes # 0.4 K/mm3 (0.1-1.0); Monocytes % 6.3 % (1.7-9.3); Neutrophils # 2.4 K/mm3 (1.8-7.8); Neutrophils % 40.4 % (37.0-80.0); Platelet Count 379 K/mm3 (142-424); Red Blood Count 2.81 M/mm3 (4.20-5.40); Red Cell Distribution Width 16.4 % (11.5-17.5)
[2024-02-02 06:40] LABS: Blood Urea Nitrogen 13 mg/dl (7-17); Calcium 8.9 mg/dl (8.4-10.2); Carbon Dioxide 28 mmol/L (22.0-30.0); Chloride 103 mmol/L (98-107); Creatinine Clearance Estimated 52 mL/min (50-200); Estimated Glomerular Filt Rate 70 ml/min (>60); GFR (African American) 85 ML/MIN (>60); Glucose 130 mg/dl (74-100); Magnesium 1.8 mg/dl (1.6-2.3); Sodium 135 mmol/L (136-145)
[2024-02-02] MEDS: METFORMIN 500MG TABLET 500 MG PO ×2 (06:58→16:56)
[2024-02-02 07:59] VITALS: BP 113/62; PULSE 82; RESP 20; TEMP 36.8; O2SAT 98
[2024-02-02] MEDS: HEPARIN SODIUM 5,000 UNIT/ML VIAL 5000 UNIT SQ (08:09)
[2024-02-02] MEDS: ASPIRIN 81MG CHEWABLE TABLET 81 MG PO (08:09)
[2024-02-02] MEDS: CALCIUM POLYCARBOPHIL 625MG TAB 1250 MG PO (08:09)
[2024-02-02] MEDS: FUROSEMIDE 40 MG TABLET PO (08:09)
[2024-02-02] MEDS: BUSPIRONE HCL 10 MG TABLET PO ×2 (08:09→20:11)
[2024-02-02] MEDS: MAGNESIUM OXIDE 400MG TABLET 400 MG PO ×2 (08:10→20:11)
[2024-02-02] MEDS: METOPROLOL TARTRATE 25MG TABLET 12.5 MG PO ×2 (08:10→20:11)
[2024-02-02] MEDS: LORazepam 0.5MG TABLET 0.5 MG PO ×2 (08:10→20:11)
[2024-02-02] MEDS: NYSTATIN TOPICAL POWDER 30GM TP ×2 (08:10→20:11)
[2024-02-02] MEDS: SERTRALINE 100MG TABLET 100 MG PO (08:10)
[2024-02-02] MEDS: TAMSULOSIN 0.4MG CAPSULE 0.4 MG PO ×2 (08:10→20:11)
--- NOTE | 2024-02-02 12:11 | P.PN_ITS ---
Subjective *Date: 02/02/24 *Time: 12:11 Interval history: No acute events overnight. On room air. Patient has no complaints. Tolerating p.o. intake. Patient went outside yesterday. Seem to really enjoy this. Will continue to take her out daily if the weather is nice. Discussed case on morning rounds, awaiting guardianship, case moving forward with APS. Medical Exam Vital signs and Labs for Last 24 Hours: Vital Signs Temp Pulse Resp BP Pulse Ox O2 Del Method 02/02/24 10:36 Room Air 02/02/24 09:00 Room Air 02/02/24 08:00 Room Air 02/02/24 07:59 98.2 F 82 20 113/62 98 Room Air 02/02/24 06:49 Room Air 02/02/24 04:58 Room Air 02/02/24 04:00 98.4 F 76 16 113/53 L 92 L Room Air 02/02/24 03:00 Room Air 02/02/24 00:56 Room Air 02/02/24 00:00 98.4 F 72 18 120/58 L 98 Room Air 02/01/24 23:00 Room Air 02/01/24 21:00 Room Air 02/01/24 20:00 Room Air 02/01/24 20:00 98.3 F 71 17 115/61 97 Room Air 02/01/24 18:27 Room Air 02/01/24 17:00 Room Air 02/01/24 16:00 97.8 F 84 24 119/70 97 Room Air 02/01/24 15:00 Room Air 02/01/24 13:00 Room Air Intake and Output 02/01/24 02/02/24 02/02/24 23:59 07:59 15:59 Intake Total 360 / 1340 510 / 510 Output Total 900 / 1300 800 / 800 Balance -540 / 40 -290 / -290 Intake: Intake, Oral Amount 360 / 1340 510 / 510 Output: Output, Urine Amount 500 / 900 800 / 800 Output, Urine Amount (Catheter) 400 / 400 Chowdary 400 / 400 Other: Number of Voids 0 Number of Unmeasured Voids 0 0 Number of Bowel Movements 1 1 Weight 66.7 kg Patient Weight 02/02/24 23:59 Weight 66.7 kg Laboratory Results - last 24 hr 02/02/24 06:11: WBC 6.0, RBC 2.81 L, Hgb 9.2 L, Hct 27.5 L, MCV 97.8, MCH 32.7 H , MCHC 33.4, RDW 16.4, Plt Count 379, MPV 7.6, Neut % (Auto) 40.4, Lymph % (Auto) 46.3, [place] % (Auto) 6.3, Eos % (Auto) 6.1, Baso % (Auto) 0.9, Neut # (Auto) 2.4, Lymph # (Auto) 2.8, [place] # (Auto) 0.4, Eos # (Auto) 0.4, Baso # (Auto) 0.1, Sodium 135 L, Potassium 4.0, Chloride 103, Carbon Dioxide 28, Anion Gap 8.0, BUN 13, Creatinine 0.80, Estimated Creat Clear 52, Estimated GFR 70, Est GFR ( Amer) 85, Glucose 130 H, Calcium 8.9, Magnesium 1.8 I & O for Labs for Last 24 Hours: Intake & Output 01/30/24 01/31/24 02/01/24 02/02/24 23:59 23:59 23:59 23:59 Intake Total 920 / 1160 1200 / 1400 1100 / 1340 510 / 510 Output Total 1050 / 1050 1325 / 1325 1000 / 1300 800 / 800 Balance -130 / 110 -125 / 75 100 / 40 -290 / -290 Weight 65.544 kg 66.587 kg 66.723 kg 66.7 kg Constitutional: Present no acute distress, average body habitus and cooperative Head: Present atraumatic and normocephalic ENT: Present normal exam Respiratory: Present normal respiratory effort; Absent rhonchi, wheezes or crackles Cardiac: Present Reg Rate and Rhythm GI: Present soft and normal bowel sounds; Absent distention or tenderness Comment:: Chowdary in place Extremities: Present normal inspection, full ROM and edema (1+ to knees) Skin: Present intact; Absent erythema Neuro: Present Essential Tremor, Grossly Intact, alert, awake and moves all extremities Comment:: Oriented to self only Assessment and Plan *Assessment and plan (1) Weakness: Status: Acute Category: Medical Code(s): R53.1 - Weakness (2) Urinary retention: Status: Acute Category: Medical Code(s): R33.9 - Retention of urine, unspecified (3) Fall: Status: Acute Category: Medical Code(s): W19.XXXA - Unspecified fall, initial encounter (4) Anemia: Status: Acute Category: Medical Code(s): D64.9 - Anemia, unspecified (5) Metabolic acidosis: Status: Resolved Category: Medical Code(s): E87.20 - Acidosis, unspecified (6) Acute hypoxemic respiratory failure: Status: Resolved Category: Medical Code(s): J96.01 - Acute respiratory failure with hypoxia (7) KRISTIE (acute kidney injury): Status: Resolved Category: Medical Code(s): N17.9 - Acute kidney failure, unspecified (8) Acute hypokalemia: Status: Resolved Category: Medical Code(s): E87.6 - Hypokalemia (9) Diabetes mellitus, type 2: Status: Acute Qualifiers: Diabetes mellitus intermediate frame tender insulin use: without fpc use Diabetes mellitus complication status: with other specified complication Qualified Code(s): E11.69 - Type 2 diabetes mellitus with other specified complication Category: Medical Code(s): E11.9 - Type 2 diabetes mellitus without complications (10) Candidal dermatitis: Status: Acute Category: Medical Code(s): B37.2 - Candidiasis of skin and nail (11) Hypertension: Status: Acute Category: Medical Code(s): I10 - Essential (primary) hypertension (12) Sinus tachycardia: Status: Resolved Category: Medical Code(s): R00.0 - Tachycardia, unspecified Plan 73-year-old female with PMHx of insulin-dependent diabetes, resident from [facility] brought in by EMS to the emergency department with concern for SOB. EMS reports that patient was found on 2 L nasal cannula saturating only in the 70s, they placed her on 4 L and she improved up to the 90s. She was tachycardic and round with rates in the 110s, blood pressure with systolic of 110. on arrival patient workup with leukocytosis 18,000 with neutrophilia. Her VBG is concerning for metabolic acidosis pH 7.21, CO2 low at 26, bicarb low at 10, lactate 10.4. Patient's potassium on chemistry 3.0, this was repleted with IV potassium. KRISTIE with creatinine 1.7 up from normal baseline. Patient given fluids for this. Initial troponin 0.04, repeat troponin 0.05. LFTs nonactionable. Lipase negative. Urinalysis without concern for UTI. CT of the chest abdomen and pelvis without acute concern for any abnormalities. CT head without intracranial hemorrhage or intracranial abnormality. Findings discussed with ED. Agreed for admission. Patient medically stable for placement once guardianship established. APS evaluating and working with case management. Bladder training, Chowdary remains in place. Problems addressed as follows: Acute hypoxemic respiratory failure. Resolved Acute metabolic acidosis: likely dehydration, hypoxia KRISTIE: Resolved - Case being evaluated by APS. Awaiting guardianship and then subsequent placement. - Will obtain labs weekly. Hemoglobin 9.2 on labs today. White cell count 6. Kidney function stable with BUN 13, creatinine 0.8. Potassium 4.0, magnesium 1.8. - Continue MVI w/ iron for anemia daily Urinary retention: Failed attempts to remove Chowdary. Will continue to have Chowdary admission. Will continue tamsulosin 0.4 mg twice daily Hx of NIDDM: A1c normal if not overly controlled at 4.9. Continue metformin 500 mg twice daily. No insulin at this time. Heparin for dvt ppx protonix Full code PT and OT working with patient. Case management assisting with decision making capacity/potential guardianship for referral to rehab.
[2024-02-02 16:00] VITALS: BP 113/50; PULSE 91; RESP 16; TEMP 36.4; O2SAT 100
[2024-02-02] MEDS: PRENATAL MULTIVITAMIN W/IRON 1 EACH PO (16:56)
--- NOTE | 2024-02-02 17:06 | PC.NURSE ---
ALERT TO SELF THIS SHIFT. TOLERATING RA WELL. UP TO CHAIR MAJORITY OF SHIFT. F/C PRESENT DRAINING BRIGHT YELLOW URINE. PT HAS REFUSED TO GO OUTSIDE FOR A WALK THIS SHIFT, IS VERY ANXIOUS ABOUT GETTING UP TO W/C. WILL CONTINUE TO TRY. NO NEEDS OR C/O NOTED THIS SHIFT. VSS.
[2024-02-02 20:00] VITALS: BP 112/46; PULSE 90; RESP 20; TEMP 36.8; O2SAT 95
[2024-02-02] MEDS: FAMOTIDINE 20MG TABLET 20 MG PO (20:11)
[2024-02-02] MEDS: hydrOXYzine pamoate 25MG CAPSULE 50 MG PO (20:11)
[2024-02-03 04:00] VITALS: BP 116/54; PULSE 89; RESP 16; TEMP 36.7; O2SAT 93; BMI 23.8
--- NOTE | 2024-02-03 04:44 | PC.NURSE ---
Pt alert to self. No complaints. Chowdary in place and draining. Rested throughout the night. Bed alarm on. Call light in reach.
[2024-02-03 08:00] VITALS: BP 117/61; PULSE 86; RESP 22; TEMP 36.7; O2SAT 95
[2024-02-03] MEDS: METFORMIN 500MG TABLET 500 MG PO ×2 (08:34→16:53)
[2024-02-03] MEDS: LORazepam 0.5MG TABLET 0.5 MG PO ×2 (08:34→21:20)
[2024-02-03] MEDS: ASPIRIN 81MG CHEWABLE TABLET 81 MG PO (08:34)
[2024-02-03] MEDS: MAGNESIUM OXIDE 400MG TABLET 400 MG PO ×2 (08:34→21:20)
[2024-02-03] MEDS: BUSPIRONE HCL 10 MG TABLET PO ×2 (08:34→21:19)
[2024-02-03] MEDS: METOPROLOL TARTRATE 25MG TABLET 12.5 MG PO ×2 (08:34→21:20)
[2024-02-03] MEDS: CALCIUM POLYCARBOPHIL 625MG TAB 1250 MG PO (08:34)
[2024-02-03] MEDS: NYSTATIN TOPICAL POWDER 30GM TP ×2 (08:34→21:23)
[2024-02-03] MEDS: FUROSEMIDE 40 MG TABLET PO (08:34)
[2024-02-03] MEDS: TAMSULOSIN 0.4MG CAPSULE 0.4 MG PO ×2 (08:35→21:19)
[2024-02-03] MEDS: SERTRALINE 100MG TABLET 100 MG PO (08:35)
[2024-02-03 15:56] VITALS: BP 104/57; PULSE 97; RESP 18; TEMP 36.8; O2SAT 98
[2024-02-03] MEDS: ERGOCALCIFEROL 50,000 UNITS (1.25MG) CAPSULE 50000 UNIT PO (16:53)
[2024-02-03] MEDS: PRENATAL MULTIVITAMIN W/IRON 1 EACH PO (16:53)
--- NOTE | 2024-02-03 17:18 | EXP.PN ---
Subjective *Date: 02/03/24 *Time: 17:18 Interval history: seen at bedside, patient has no complains today Exam Data for Last 24 hours Vital signs and Labs for Last 24 Hours: Temp Pulse Resp BP Pulse Ox O2 Del Method O2 Flow Rate 98.3 F 97 H 18 104/57 L 98 Room Air 3.5 02/03/24 15:56 02/03/24 15:56 02/03/24 15:56 02/03/24 15:56 02/03/24 15:56 02/03/24 15:56 01/11/24 00:00 I & O for Last 24 hours: Intake & Output 01/31/24 02/01/24 02/02/24 02/03/24 23:59 23:59 23:59 23:59 Intake Total 1200 / 1400 1100 / 1340 900 / 1140 1154 / 1154 Output Total 1325 / 1325 1000 / 1300 1250 / 1250 775 / 775 Balance -125 / 75 100 / 40 -350 / -110 379 / 379 Weight 66.587 kg 66.723 kg 66.7 kg 64.728 kg Constitutional Constitutional: no acute distress *Routine HEENT Exam Head: Present normocephalic Eye: Present EOMI and PERRL ENT: Present mucous membranes moist *Routine Neck Exam Neck: Present supple; Absent lymphadenopathy *Routine Respiratory Exam Respiratory: Present CTA bilaterally *Routine Cardiovascular Exam Cardiovascular: Present RRR *Routine Abdominal Exam Abdominal: Present soft and normoactive bowel sounds; Absent tenderness *Routine Extremities Exam Extremities: Absent cyanosis, clubbing or edema *Routine Skin Exam Skin: Present warm; Absent rash *Routine Neurological Exam Neurological: Present alert and oriented X3 Assessment and Plan *Assessment and plan (1) Weakness: Status: Acute Category: Medical Code(s): R53.1 - Weakness (2) Urinary retention: Status: Acute Category: Medical Code(s): R33.9 - Retention of urine, unspecified (3) Fall: Status: Acute Category: Medical Code(s): W19.XXXA - Unspecified fall, initial encounter (4) Anemia: Status: Acute Category: Medical Code(s): D64.9 - Anemia, unspecified (5) Metabolic acidosis: Status: Resolved Category: Medical Code(s): E87.20 - Acidosis, unspecified (6) Acute hypoxemic respiratory failure: Status: Resolved Category: Medical Code(s): J96.01 - Acute respiratory failure with hypoxia (7) KRISTIE (acute kidney injury): Status: Resolved Category: Medical Code(s): N17.9 - Acute kidney failure, unspecified (8) Acute hypokalemia: Status: Resolved Category: Medical Code(s): E87.6 - Hypokalemia (9) Diabetes mellitus, type 2: Status: Acute Qualifiers: Diabetes mellitus residential insulin use: without residential use Diabetes mellitus complication status: with other specified complication Qualified Code(s): E11.69 - Type 2 diabetes mellitus with other specified complication Category: Medical Code(s): E11.9 - Type 2 diabetes mellitus without complications (10) Candidal dermatitis: Status: Acute Category: Medical Code(s): B37.2 - Candidiasis of skin and nail (11) Hypertension: Status: Acute Category: Medical Code(s): I10 - Essential (primary) hypertension (12) Sinus tachycardia: Status: Resolved Category: Medical Code(s): R00.0 - Tachycardia, unspecified Plan 73-year-old female with PMHx of insulin-dependent diabetes, resident from [facility] brought in by EMS to the emergency department with concern for SOB. EMS reports that patient was found on 2 L nasal cannula saturating only in the 70s, they placed her on 4 L and she improved up to the 90s. She was tachycardic and round with rates in the 110s, blood pressure with systolic of 110. on arrival patient workup with leukocytosis 18,000 with neutrophilia. Her VBG is concerning for metabolic acidosis pH 7.21, CO2 low at 26, bicarb low at 10, lactate 10.4. Patient's potassium on chemistry 3.0, this was repleted with IV potassium. KRISTIE with creatinine 1.7 up from normal baseline. Patient given fluids for this. Initial troponin 0.04, repeat troponin 0.05. LFTs nonactionable. Lipase negative. Urinalysis without concern for UTI. CT of the chest abdomen and pelvis without acute concern for any abnormalities. CT head without intracranial hemorrhage or intracranial abnormality. Findings discussed with ED. Agreed for admission. Patient medically stable for placement once guardianship established. APS evaluating and working with case management. Bladder training, Chowdary remains in place. Problems addressed as follows: Acute hypoxemic respiratory failure. Resolved Acute metabolic acidosis: likely dehydration, hypoxia KRISTIE: Resolved - Case being evaluated by APS. Awaiting guardianship and then subsequent placement. - Will obtain labs weekly. Urinary retention: Failed attempts to remove Chowdary. Will continue to have Chowdary admission. Will continue tamsulosin 0.4 mg twice daily Hx of NIDDM: A1c normal if not overly controlled at 4.9. Continue metformin 500 mg twice daily. No insulin at this time. Heparin for dvt ppx protonix Full code PT and OT working with patient. Case management assisting with decision making capacity/potential guardianship for referral to rehab. no change in plan today
--- NOTE | 2024-02-03 17:35 | PC.NURSE ---
ALERT TO PERSON. TOLERATING RA. UP TO CHAIR MAJORITY OF SHIFT, TOLERATED SOMEWHAT WELL-CONTINUES TO BE VERY NERVOUS ABOUT AMBULATION AND DID NOT WANT TO LEAVE ROOM. HAS SLEPT INTERMITTENTLY, HAS HAD A GOOD APPETITE TODAY. F/C REMAINS IN PLACE DRAINING ADEQUATE URINE. NO NEEDS OR C/O THUS FAR THIS SHIFT, VSS.
[2024-02-03 20:00] VITALS: BP 109/55; PULSE 94; RESP 18; TEMP 36.9; O2SAT 96
[2024-02-03] MEDS: FAMOTIDINE 20MG TABLET 20 MG PO (21:19)
[2024-02-03] MEDS: hydrOXYzine pamoate 25MG CAPSULE 50 MG PO (21:20)
[2024-02-04 04:00] VITALS: BP 125/48; PULSE 87; RESP 16; TEMP 36.4; O2SAT 97; BMI 24.5
--- NOTE | 2024-02-04 06:29 | PC.NURSE ---
Pt is alert and oriented x4 and currently tolerating RA. Pt took night meds with no issues and has rested well this shift. Pt has no complaints and denies pain. soto remains in place and continues to drain freely.
[2024-02-04 08:00] VITALS: BP 106/50; PULSE 86; RESP 18; TEMP 36.7; O2SAT 98
[2024-02-04] MEDS: SIMETHICONE 80MG CHEWABLE TABLET 160 MG PO (08:57)
[2024-02-04] MEDS: METOPROLOL TARTRATE 25MG TABLET 12.5 MG PO ×2 (08:58→20:35)
[2024-02-04] MEDS: SERTRALINE 100MG TABLET 100 MG PO (08:58)
[2024-02-04] MEDS: FUROSEMIDE 40 MG TABLET PO (09:00)
[2024-02-04] MEDS: CALCIUM POLYCARBOPHIL 625MG TAB 1250 MG PO (09:00)
[2024-02-04] MEDS: BUSPIRONE HCL 10 MG TABLET PO ×2 (09:01→20:35)
[2024-02-04] MEDS: TAMSULOSIN 0.4MG CAPSULE 0.4 MG PO ×2 (09:02→20:35)
[2024-02-04] MEDS: MAGNESIUM OXIDE 400MG TABLET 400 MG PO ×2 (09:02→20:35)
[2024-02-04] MEDS: METFORMIN 500MG TABLET 500 MG PO ×2 (09:02→17:47)
[2024-02-04] MEDS: ASPIRIN 81MG CHEWABLE TABLET 81 MG PO (09:03)
[2024-02-04] MEDS: LORazepam 0.5MG TABLET 0.5 MG PO ×2 (09:05→20:35)
--- NOTE | 2024-02-04 15:28 | P.PN_ITS ---
Subjective *Date: 02/04/24 *Time: 15:28 Interval history: seen at bedside, patient has no complains today, denied CO, SOB Exam Data for Last 24 hours Vital signs and Labs for Last 24 Hours: Temp Pulse Resp BP Pulse Ox O2 Del Method O2 Flow Rate 98.0 F 86 18 106/50 L 98 Room Air 3.5 02/04/24 08:00 02/04/24 08:00 02/04/24 08:00 02/04/24 08:00 02/04/24 08:00 02/04/24 13:00 01/11/24 00:00 I & O for Last 24 hours: Intake & Output 02/01/24 02/02/24 02/03/24 02/04/24 23:59 23:59 23:59 23:59 Intake Total 1100 / 1340 900 / 1140 1704 / 1944 720 / 720 Output Total 1000 / 1300 1250 / 1250 775 / 775 900 / 900 Balance 100 / 40 -350 / -110 929 / 1169 -180 / -180 Weight 66.723 kg 66.7 kg 64.728 kg 66.633 kg Constitutional Constitutional: no acute distress *Routine HEENT Exam Head: Present normocephalic Eye: Present EOMI and PERRL ENT: Present mucous membranes moist *Routine Neck Exam Neck: Present supple; Absent lymphadenopathy *Routine Respiratory Exam Respiratory: Present CTA bilaterally *Routine Cardiovascular Exam Cardiovascular: Present RRR *Routine Abdominal Exam Abdominal: Present soft and normoactive bowel sounds; Absent tenderness *Routine Extremities Exam Extremities: Absent cyanosis, clubbing or edema *Routine Skin Exam Skin: Present warm; Absent rash *Routine Neurological Exam Neurological: Present alert and oriented X3 Assessment and Plan *Assessment and plan (1) Weakness: Status: Acute Category: Medical Code(s): R53.1 - Weakness (2) Urinary retention: Status: Acute Category: Medical Code(s): R33.9 - Retention of urine, unspecified (3) Fall: Status: Acute Category: Medical Code(s): W19.XXXA - Unspecified fall, initial encounter (4) Anemia: Status: Acute Category: Medical Code(s): D64.9 - Anemia, unspecified (5) Metabolic acidosis: Status: Resolved Category: Medical Code(s): E87.20 - Acidosis, unspecified (6) Acute hypoxemic respiratory failure: Status: Resolved Category: Medical Code(s): J96.01 - Acute respiratory failure with hypoxia (7) KRISTIE (acute kidney injury): Status: Resolved Category: Medical Code(s): N17.9 - Acute kidney failure, unspecified (8) Acute hypokalemia: Status: Resolved Category: Medical Code(s): E87.6 - Hypokalemia (9) Diabetes mellitus, type 2: Status: Acute Qualifiers: Diabetes mellitus intermission coordinator insulin use: without senior care use Diabetes mellitus complication status: with other specified complication Qualified Code(s): E11.69 - Type 2 diabetes mellitus with other specified complication Category: Medical Code(s): E11.9 - Type 2 diabetes mellitus without complications (10) Candidal dermatitis: Status: Acute Category: Medical Code(s): B37.2 - Candidiasis of skin and nail (11) Hypertension: Status: Acute Category: Medical Code(s): I10 - Essential (primary) hypertension (12) Sinus tachycardia: Status: Resolved Category: Medical Code(s): R00.0 - Tachycardia, unspecified Plan 73-year-old female with PMHx of insulin-dependent diabetes, resident from [facility] brought in by EMS to the emergency department with concern for SOB. EMS reports that patient was found on 2 L nasal cannula saturating only in the 70s, they placed her on 4 L and she improved up to the 90s. She was tachycardic and round with rates in the 110s, blood pressure with systolic of 110. on arrival patient workup with leukocytosis 18,000 with neutrophilia. Her VBG is concerning for metabolic acidosis pH 7.21, CO2 low at 26, bicarb low at 10, lactate 10.4. Patient's potassium on chemistry 3.0, this was repleted with IV potassium. KRISTIE with creatinine 1.7 up from normal baseline. Patient given fluids for this. Initial troponin 0.04, repeat troponin 0.05. LFTs nonactionable. Lipase negative. Urinalysis without concern for UTI. CT of the chest abdomen and pelvis without acute concern for any abnormalities. CT head without intracranial hemorrhage or intracranial abnormality. Findings discussed with ED. Agreed for admission. Patient medically stable for placement once guardianship established. APS evaluating and working with case management. Anthony addmaxwell training, Chowdary remains in place. Problems addressed as follows: Acute hypoxemic respiratory failure. Resolved Acute metabolic acidosis: likely dehydration, hypoxia KRISTIE: Resolved - Case being evaluated by APS. Awaiting guardianship and then subsequent placement. - Will obtain labs weekly. Urinary retention: Failed attempts to remove Chowdary. Will continue to have Chowdary admission. Will continue tamsulosin 0.4 mg twice daily Hx of NIDDM: A1c normal if not overly controlled at 4.9. Continue metformin 500 mg twice daily. No insulin at this time. Heparin for dvt ppx protonix Full code PT and OT working with patient. Case management assisting with decision making capacity/potential guardianship for referral to rehab. no change in plan today 02/04/2024
[2024-02-04 16:00] VITALS: BP 120/58; PULSE 86; RESP 17; TEMP 37.2; O2SAT 96
[2024-02-04] MEDS: PRENATAL MULTIVITAMIN W/IRON 1 EACH PO (17:47)
--- NOTE | 2024-02-04 18:51 | PC.NURSE ---
NO ACUTE CHANGES SINCE PREVIOUS ASSESSMENT. TOLERATING ROOM AIR WELL. SAT UP TO CHAIR MOST OF THE DAY LISTENING TO MUSIC.
[2024-02-04 20:00] VITALS: BP 94/58; PULSE 86; RESP 18; TEMP 36.9; O2SAT 95
[2024-02-04] MEDS: hydrOXYzine pamoate 25MG CAPSULE 50 MG PO (20:35)
[2024-02-04] MEDS: FAMOTIDINE 20MG TABLET 20 MG PO (20:35)
[2024-02-04] MEDS: NYSTATIN TOPICAL POWDER 30GM TP (20:35)
[2024-02-05 04:00] VITALS: BP 131/86; PULSE 98; RESP 18; TEMP 36.6; O2SAT 96; BMI 23.7
--- NOTE | 2024-02-05 06:02 | PC.NURSE ---
Pt is alert to self. Rested throughout the night. No complaints. Chowdary in place and draining. Bed alarm on. Call light in reach.
[2024-02-05] MEDS: METFORMIN 500MG TABLET 500 MG PO ×2 (06:32→16:36)
[2024-02-05 08:00] VITALS: BP 101/57; PULSE 99; RESP 16; TEMP 36.4; O2SAT 93
[2024-02-05] MEDS: LORazepam 0.5MG TABLET 0.5 MG PO ×2 (08:20→20:38)
[2024-02-05] MEDS: MAGNESIUM OXIDE 400MG TABLET 400 MG PO ×2 (08:20→20:37)
[2024-02-05] MEDS: SERTRALINE 100MG TABLET 100 MG PO (08:20)
[2024-02-05] MEDS: METOPROLOL TARTRATE 25MG TABLET 12.5 MG PO ×2 (08:21→20:37)
[2024-02-05] MEDS: CALCIUM POLYCARBOPHIL 625MG TAB 1250 MG PO (08:21)
[2024-02-05] MEDS: ASPIRIN 81MG CHEWABLE TABLET 81 MG PO (08:21)
[2024-02-05] MEDS: FUROSEMIDE 40 MG TABLET PO (08:21)
[2024-02-05] MEDS: NYSTATIN TOPICAL POWDER 30GM TP ×2 (08:22→20:38)
[2024-02-05] MEDS: TAMSULOSIN 0.4MG CAPSULE 0.4 MG PO ×2 (08:22→20:38)
[2024-02-05] MEDS: BUSPIRONE HCL 10 MG TABLET PO ×2 (08:22→20:38)
[2024-02-05 11:23] VITALS: BP 98/55; PULSE 91; RESP 16; TEMP 36.9; O2SAT 98
--- NOTE | 2024-02-05 14:16 | PC.NURSE ---
Pt is alert to self. Rested throughout the day. No complaints. Chowdary in place and draining. Bed alarm on. Call light in reach.
[2024-02-05 16:00] VITALS: BP 94/53; PULSE 88; RESP 16; TEMP 36.6; O2SAT 96
[2024-02-05] MEDS: PRENATAL MULTIVITAMIN W/IRON 1 EACH PO (16:36)
[2024-02-05 16:44] LABS: POC Glucose,Bedside 177 (70-110)
--- NOTE | 2024-02-05 17:00 | P.PN_ITS ---
Subjective *Date: 02/05/24 *Time: 17:00 Interval history: seen at bedside, patient has no complains today, denied CO, SOB Exam Data for Last 24 hours Vital signs and Labs for Last 24 Hours: Temp Pulse Resp BP Pulse Ox O2 Del Method O2 Flow Rate 98.4 F 91 H 16 98/55 L 98 Room Air 3.5 02/05/24 11:23 02/05/24 11:23 02/05/24 11:23 02/05/24 11:23 02/05/24 11:23 02/05/24 16:01 01/11/24 00:00 Laboratory Results - last 24 hr 02/05/24 16:33: POC Glucose 177 H I & O for Last 24 hours: Intake & Output 02/02/24 02/03/24 02/04/24 02/05/24 23:59 23:59 23:59 23:59 Intake Total 900 / 1140 1704 / 1944 1320 / 1440 660 / 660 Output Total 1250 / 1250 775 / 775 1900 / 1900 1000 / 1000 Balance -350 / -110 929 / 1169 -580 / -460 -340 / -340 Weight 66.7 kg 64.728 kg 66.633 kg 64.546 kg Constitutional Constitutional: no acute distress *Routine HEENT Exam Head: Present normocephalic Eye: Present EOMI and PERRL ENT: Present mucous membranes moist *Routine Neck Exam Neck: Present supple; Absent lymphadenopathy *Routine Respiratory Exam Respiratory: Present CTA bilaterally *Routine Cardiovascular Exam Cardiovascular: Present RRR *Routine Abdominal Exam Abdominal: Present soft and normoactive bowel sounds; Absent tenderness *Routine Extremities Exam Extremities: Absent cyanosis, clubbing or edema *Routine Skin Exam Skin: Present warm; Absent rash *Routine Neurological Exam Neurological: Present alert and oriented X3 Assessment and Plan *Assessment and plan (1) Weakness: Status: Acute Category: Medical Code(s): R53.1 - Weakness (2) Urinary retention: Status: Acute Category: Medical Code(s): R33.9 - Retention of urine, unspecified (3) Fall: Status: Acute Category: Medical Code(s): W19.XXXA - Unspecified fall, initial encounter (4) Anemia: Status: Acute Category: Medical Code(s): D64.9 - Anemia, unspecified (5) Metabolic acidosis: Status: Resolved Category: Medical Code(s): E87.20 - Acidosis, unspecified (6) Acute hypoxemic respiratory failure: Status: Resolved Category: Medical Code(s): J96.01 - Acute respiratory failure with hypoxia (7) KRISTIE (acute kidney injury): Status: Resolved Category: Medical Code(s): N17.9 - Acute kidney failure, unspecified (8) Acute hypokalemia: Status: Resolved Category: Medical Code(s): E87.6 - Hypokalemia (9) Diabetes mellitus, type 2: Status: Acute Qualifiers: Diabetes mellitus intermediate insulin use: without intermediate use Diabetes mellitus complication status: with other specified complication Qualified Code(s): E11.69 - Type 2 diabetes mellitus with other specified complication Category: Medical Code(s): E11.9 - Type 2 diabetes mellitus without complications (10) Candidal dermatitis: Status: Acute Category: Medical Code(s): B37.2 - Candidiasis of skin and nail (11) Hypertension: Status: Acute Category: Medical Code(s): I10 - Essential (primary) hypertension (12) Sinus tachycardia: Status: Resolved Category: Medical Code(s): R00.0 - Tachycardia, unspecified Plan 73-year-old female with PMHx of insulin-dependent diabetes, resident from [facility] brought in by EMS to the emergency department with concern for SOB. EMS reports that patient was found on 2 L nasal cannula saturating only in the 70s, they placed her on 4 L and she improved up to the 90s. She was tachycardic and round with rates in the 110s, blood pressure with systolic of 110. on arrival patient workup with leukocytosis 18,000 with neutrophilia. Her VBG is concerning for metabolic acidosis pH 7.21, CO2 low at 26, bicarb low at 10, lactate 10.4. Patient's potassium on chemistry 3.0, this was repleted with IV potassium. KRISTIE with creatinine 1.7 up from normal baseline. Patient given fluids for this. Initial troponin 0.04, repeat troponin 0.05. LFTs nonactionable. Lipase negative. Urinalysis without concern for UTI. CT of the chest abdomen and pelvis without acute concern for any abnormalities. CT head without intracranial hemorrhage or intracranial abnormality. Findings discussed with ED. Agreed for admission. Patient medically stable for placement once guardianship established. APS evaluating and working with case management. Bladder training, Chowdary remains in place. Problems addressed as follows: Acute hypoxemic respiratory failure. Resolved Acute metabolic acidosis: likely dehydration, hypoxia KRISTIE: Resolved - Case being evaluated by APS. Awaiting guardianship and then subsequent padmini cement. - Will obtain labs weekly. Urinary retention: Failed attempts to remove Chowdary. Will continue to have Chowdary admission. Will continue tamsulosin 0.4 mg twice daily Hx of NIDDM: A1c normal if not overly controlled at 4.9. Continue metformin 500 mg twice daily. No insulin at this time. Heparin for dvt ppx protonix Full code PT and OT working with patient. Case management assisting with decision making capacity/potential guardianship for referral to rehab. no change in plan today 02/05/2024
[2024-02-05 19:54] VITALS: BP 108/83; PULSE 88; RESP 17; TEMP 37; O2SAT 100
[2024-02-05 20:00] VITALS: O2SAT 100
[2024-02-05] MEDS: hydrOXYzine pamoate 25MG CAPSULE 50 MG PO (20:37)
[2024-02-05] MEDS: FAMOTIDINE 20MG TABLET 20 MG PO (20:38)
[2024-02-06] VITALS: BP 104/48; PULSE 90; RESP 17; TEMP 37; O2SAT 98
[2024-02-06 04:00] VITALS: BP 103/57; PULSE 82; RESP 17; TEMP 36.6; O2SAT 97; BMI 23.6
--- NOTE | 2024-02-06 05:07 | PC.NURSE ---
HAS RESTED WELL. BED ALARM IN USE . UPPER SIDE RAILS UP. F/C TO BSD , URINE CLEAR YELLOW. NAD. PLEASANTLY CONFUSED. ORIENTED TO SELF. VITAL SIGNS STABLE/AFEBRILE.
[2024-02-06 06:10] LABS: Basophils # 0.1 K/mm3 (0-0.2); Basophils % 0.8 % (0.1-2.0); Eosinophils # 0.4 K/mm3 (0.0-0.4); Eosinophils % 6.8 % (0.1-12.0); Hematocrit 29.1 % (37.0-47.0); Hemoglobin 9.2 g/dL (12.2-16.2); Lymphocytes # 2.3 K/mm3 (0.7-4.5); Lymphocytes % 38.2 % (10-50); Mean Corpuscular HGB Conc 31.7 g/dL (31.8-35.4); Mean Corpuscular Hemoglobin 31.6 pg (27.0-31.2); Mean Corpuscular Volume 99.7 fl (81-99); Mean Platelet Volume 7.9 fl (7.4-10.4); Monocytes # 0.4 K/mm3 (0.1-1.0); Monocytes % 5.8 % (1.7-9.3); Neutrophils # 2.9 K/mm3 (1.8-7.8); Neutrophils % 48.5 % (37.0-80.0); Platelet Count 384 K/mm3 (142-424); Red Blood Count 2.92 M/mm3 (4.20-5.40); Red Cell Distribution Width 16.1 % (11.5-17.5)
[2024-02-06 06:24] LABS: Blood Urea Nitrogen 18 mg/dl (7-17); Carbon Dioxide 23 mmol/L (22.0-30.0); Chloride 104 mmol/L (98-107); Creatinine Clearance Estimated 50 mL/min (50-200); Estimated Glomerular Filt Rate 70 ml/min (>60); GFR (African American) 85 ML/MIN (>60); Sodium 136 mmol/L (136-145)
[2024-02-06 06:25] LABS: Anion Gap 12.9 mEq/L (5-15); Calcium 8.8 mg/dl (8.4-10.2); Glucose 169 mg/dl (74-100); Potassium 3.9 mmoL/L (3.5-5.1)
[2024-02-06 07:49] VITALS: BP 110/64; PULSE 70; RESP 18; TEMP 37; O2SAT 100
[2024-02-06] MEDS: ACETAMINOPHEN 325MG TAB 650 MG PO (07:56)
[2024-02-06] MEDS: METFORMIN 500MG TABLET 500 MG PO ×2 (07:57→16:54)
[2024-02-06] MEDS: BUSPIRONE HCL 10 MG TABLET PO ×2 (08:41→20:18)
[2024-02-06] MEDS: ASPIRIN 81MG CHEWABLE TABLET 81 MG PO (08:41)
[2024-02-06] MEDS: CALCIUM POLYCARBOPHIL 625MG TAB 1250 MG PO (08:42)
[2024-02-06] MEDS: FUROSEMIDE 40 MG TABLET PO (08:43)
[2024-02-06] MEDS: MAGNESIUM OXIDE 400MG TABLET 400 MG PO ×2 (08:43→20:18)
[2024-02-06] MEDS: METOPROLOL TARTRATE 25MG TABLET 12.5 MG PO ×2 (08:44→20:18)
[2024-02-06] MEDS: SERTRALINE 100MG TABLET 100 MG PO (08:45)
[2024-02-06] MEDS: TAMSULOSIN 0.4MG CAPSULE 0.4 MG PO ×2 (08:45→20:18)
[2024-02-06] MEDS: LORazepam 0.5MG TABLET 0.5 MG PO ×2 (08:46→20:18)
[2024-02-06] MEDS: NYSTATIN TOPICAL POWDER 30GM TP ×2 (09:00→20:18)
[2024-02-06 11:16] VITALS: BP 109/62; PULSE 62; RESP 18; TEMP 37; O2SAT 93
--- NOTE | 2024-02-06 11:58 | P.PN_ITS ---
Subjective *Date: 02/06/24 *Time: 11:58 Interval history: seen at bedside, patient has no complains today, denied CO, SOB Exam Data for Last 24 hours Vital signs and Labs for Last 24 Hours: Temp Pulse Resp BP Pulse Ox O2 Del Method O2 Flow Rate 98.6 F 62 18 109/62 L 93 L Room Air 3.5 02/06/24 11:16 02/06/24 11:16 02/06/24 11:16 02/06/24 11:16 02/06/24 11:16 02/06/24 11:16 01/11/24 00:00 Laboratory Results - last 24 hr 02/05/24 16:33: POC Glucose 177 H 02/06/24 05:43: WBC 6.0, RBC 2.92 L, Hgb 9.2 L, Hct 29.1 L, MCV 99.7 H, MCH 31.6 H, MCHC 31.7 L, RDW 16.1, Plt Count 384, MPV 7.9, Neut % (Auto) 48.5, Lymph % (Auto) 38.2, [place] % (Auto) 5.8, Eos % (Auto) 6.8, Baso % (Auto) 0.8, Neut # (Auto) 2.9, Lymph # (Auto) 2.3, [place] # (Auto) 0.4, Eos # (Auto) 0.4, Baso # (Auto) 0.1, Sodium 136, Potassium 3.9, Chloride 104, Carbon Dioxide 23, Anion Gap 12.9, BUN 18 H, Creatinine 0.80, Estimated Creat Clear 50, Estimated GFR 70, Est GFR ( Amer) 85, Glucose 169 H, Calcium 8.8 I & O for Last 24 hours: Intake & Output 02/03/24 02/04/24 02/05/24 02/06/24 23:59 23:59 23:59 23:59 Intake Total 1704 / 1944 1320 / 1440 1550 / 1550 270 / 270 Output Total 775 / 775 1900 / 1900 1650 / 1650 550 / 550 Balance 929 / 1169 -580 / -460 -100 / -100 -280 / -280 Weight 64.728 kg 66.633 kg 64.546 kg 64.5 kg Constitutional Constitutional: no acute distress *Routine HEENT Exam Head: Present normocephalic Eye: Present EOMI and PERRL ENT: Present mucous membranes moist *Routine Neck Exam Neck: Present supple; Absent lymphadenopathy *Routine Respiratory Exam Respiratory: Present CTA bilaterally *Routine Cardiovascular Exam Cardiovascular: Present RRR *Routine Abdominal Exam Abdominal: Present soft and normoactive bowel sounds; Absent tenderness *Routine Extremities Exam Extremities: Absent cyanosis, clubbing or edema *Routine Skin Exam Skin: Present warm; Absent rash *Routine Neurological Exam Neurological: Present alert and oriented X3 Assessment and Plan *Assessment and plan (1) Weakness: Status: Acute Category: Medical Code(s): R53.1 - Weakness (2) Urinary retention: Status: Acute Category: Medical Code(s): R33.9 - Retention of urine, unspecified (3) Fall: Status: Acute Category: Medical Code(s): W19.XXXA - Unspecified fall, initial encounter (4) Anemia: Status: Acute Category: Medical Code(s): D64.9 - Anemia, unspecified (5) Metabolic acidosis: Status: Resolved Category: Medical Code(s): E87.20 - Acidosis, unspecified (6) Acute hypoxemic respiratory failure: Status: Resolved Category: Medical Code(s): J96.01 - Acute respiratory failure with hypoxia (7) KRISTIE (acute kidney injury): Status: Resolved Category: Medical Code(s): N17.9 - Acute kidney failure, unspecified (8) Acute hypokalemia: Status: Resolved Category: Medical Code(s): E87.6 - Hypokalemia (9) Diabetes mellitus, type 2: Status: Acute Qualifiers: Diabetes mellitus intermediate accountant insulin use: without intermediate accountant use Diabetes mellitus complication status: with other specified complication Qualified Code(s): E11.69 - Type 2 diabetes mellitus with other specified complication Category: Medical Code(s): E11.9 - Type 2 diabetes mellitus without complications (10) Candidal dermatitis: Status: Acute Category: Medical Code(s): B37.2 - Candidiasis of skin and nail (11) Hypertension: Status: Acute Category: Medical Code(s): I10 - Essential (primary) hypertension (12) Sinus tachycardia: Status: Resolved Category: Medical Code(s): R00.0 - Tachycardia, unspecified Plan 73-year-old female with PMHx of insulin-dependent diabetes, resident from [facility] brought in by EMS to the emergency department with concern for SOB. EMS reports that patient was found on 2 L nasal cannula saturating only in the 70s, they placed her on 4 L and she improved up to the 90s. She was tachycardic and round with rates in the 110s, blood pressure with systolic of 110. on arrival patient workup with leukocytosis 18,000 with neutrophilia. Her VBG is concerning for metabolic acidosis pH 7.21, CO2 low at 26, bicarb low at 10, lactate 10.4. Patient's potassium on chemistry 3.0, this was repleted with IV potassium. KRISTIE with creatinine 1.7 up from normal baseline. Patient given fluids for this. Initial troponin 0.04, repeat troponin 0.05. LFTs nonactionable. Lipase negative. Urinalysis without concern for UTI. CT of the chest abdomen and pelvis without acute concern for any abnormalities. CT head without intracranial hemorrhage or intracranial abnormality. Findings discussed with ED. Agreed for admission. Patient medically stable for placement once guardianship established. APS evaluating and working with case management. Bladder training, Chowdary remains in place. Problems addressed as follows: Acute hypoxemic respiratory failure. Resolved Acute metabolic acidosis: likely dehydration, hypoxia KRISTIE: Resolved - Case being evaluated by APS. Awaiting guardianship and then subsequent placement. - Will obtain labs weekly. Urinary retention: Failed attempts to remove Chowdary. Will continue to have Chowdary admission. Will continue tamsulosin 0.4 mg twice daily Hx of NIDDM: A1c normal if not overly controlled at 4.9. Continue metformin 500 mg twice daily. No insulin at this time. Heparin for dvt ppx protonix Full code PT and OT working with patient. Case management assisting with decision making capacity/potential guardianship for referral to rehab. no change in plan today 02/06/2024
[2024-02-06 16:00] VITALS: BP 110/67; PULSE 88; RESP 20; TEMP 36.7; O2SAT 98
[2024-02-06] MEDS: PRENATAL MULTIVITAMIN W/IRON 1 EACH PO (16:54)
[2024-02-06 19:50] VITALS: BP 126/64; PULSE 81; RESP 16; TEMP 36.6; O2SAT 96
[2024-02-06] MEDS: hydrOXYzine pamoate 25MG CAPSULE 50 MG PO (20:18)
[2024-02-06] MEDS: FAMOTIDINE 20MG TABLET 20 MG PO (20:18)
[2024-02-07] VITALS: BP 151/75; PULSE 78; RESP 18; TEMP 36.7; O2SAT 99
[2024-02-07 04:00] VITALS: BP 119/60; PULSE 84; RESP 16; TEMP 36.6; O2SAT 97; BMI 24.7
[2024-02-07 07:49] VITALS: BP 129/71; PULSE 89; RESP 24; TEMP 36.7; O2SAT 96
[2024-02-07] MEDS: METFORMIN 500MG TABLET 500 MG PO ×2 (08:11→16:50)
[2024-02-07] MEDS: NYSTATIN TOPICAL POWDER 30GM TP ×2 (08:12→21:38)
[2024-02-07] MEDS: ASPIRIN 81MG CHEWABLE TABLET 81 MG PO (08:12)
[2024-02-07] MEDS: BUSPIRONE HCL 10 MG TABLET PO ×2 (08:13→21:37)
[2024-02-07] MEDS: CALCIUM POLYCARBOPHIL 625MG TAB 1250 MG PO (08:13)
[2024-02-07] MEDS: MAGNESIUM OXIDE 400MG TABLET 400 MG PO ×2 (08:14→21:36)
[2024-02-07] MEDS: FUROSEMIDE 40 MG TABLET PO (08:14)
[2024-02-07] MEDS: LORazepam 0.5MG TABLET 0.5 MG PO ×2 (08:14→21:37)
[2024-02-07] MEDS: METOPROLOL TARTRATE 25MG TABLET 12.5 MG PO ×2 (08:15→21:37)
[2024-02-07] MEDS: SERTRALINE 100MG TABLET 100 MG PO (08:16)
[2024-02-07] MEDS: TAMSULOSIN 0.4MG CAPSULE 0.4 MG PO ×2 (08:16→21:37)
--- NOTE | 2024-02-07 14:37 | EXP.PN ---
Subjective *Date: 02/07/24 *Time: 14:37 Interval history: seen at bedside, patient has no complains today, denied CO, SOB Exam Data for Last 24 hours Vital signs and Labs for Last 24 Hours: Temp Pulse Resp BP Pulse Ox O2 Del Method O2 Flow Rate 98.0 F 89 24 129/71 96 Room Air 3.5 02/07/24 07:49 02/07/24 07:49 02/07/24 07:49 02/07/24 07:49 02/07/24 07:49 02/07/24 11:00 01/11/24 00:00 I & O for Last 24 hours: Intake & Output 02/04/24 02/05/24 02/06/24 02/07/24 23:59 23:59 23:59 23:59 Intake Total 1320 / 1440 1550 / 1550 675 / 825 690 / 690 Output Total 1900 / 1900 1650 / 1650 1050 / 1550 1250 / 1250 Balance -580 / -460 -100 / -100 -375 / -725 -560 / -560 Weight 66.633 kg 64.546 kg 64.5 kg 67.268 kg Constitutional Constitutional: no acute distress *Routine HEENT Exam Head: Present normocephalic Eye: Present EOMI and PERRL ENT: Present mucous membranes moist *Routine Neck Exam Neck: Present supple; Absent lymphadenopathy *Routine Respiratory Exam Respiratory: Present CTA bilaterally *Routine Cardiovascular Exam Cardiovascular: Present RRR *Routine Abdominal Exam Abdominal: Present soft and normoactive bowel sounds; Absent tenderness *Routine Extremities Exam Extremities: Absent cyanosis, clubbing or edema *Routine Skin Exam Skin: Present warm; Absent rash *Routine Neurological Exam Neurological: Present alert and oriented X3 Assessment and Plan *Assessment and plan (1) Weakness: Status: Acute Category: Medical Code(s): R53.1 - Weakness (2) Urinary retention: Status: Acute Category: Medical Code(s): R33.9 - Retention of urine, unspecified (3) Fall: Status: Acute Category: Medical Code(s): W19.XXXA - Unspecified fall, initial encounter (4) Anemia: Status: Acute Category: Medical Code(s): D64.9 - Anemia, unspecified (5) Metabolic acidosis: Status: Resolved Category: Medical Code(s): E87.20 - Acidosis, unspecified (6) Acute hypoxemic respiratory failure: Status: Resolved Category: Medical Code(s): J96.01 - Acute respiratory failure with hypoxia (7) KRISTIE (acute kidney injury): Status: Resolved Category: Medical Code(s): N17.9 - Acute kidney failure, unspecified (8) Acute hypokalemia: Status: Resolved Category: Medical Code(s): E87.6 - Hypokalemia (9) Diabetes mellitus, type 2: Status: Acute Qualifiers: Diabetes mellitus usp insulin use: without intermodal dispatcher use Diabetes mellitus complication status: with other specified complication Qualified Code(s): E11.69 - Type 2 diabetes mellitus with other specified complication Category: Medical Code(s): E11.9 - Type 2 diabetes mellitus without complications (10) Candidal dermatitis: Status: Acute Category: Medical Code(s): B37.2 - Candidiasis of skin and nail (11) Hypertension: Status: Acute Category: Medical Code(s): I10 - Essential (primary) hypertension (12) Sinus tachycardia: Status: Resolved Category: Medical Code(s): R00.0 - Tachycardia, unspecified Plan 73-year-old female with PMHx of insulin-dependent diabetes, resident from [facility] brought in by EMS to the emergency department with concern for SOB. EMS reports that patient was found on 2 L nasal cannula saturating only in the 70s, they placed her on 4 L and she improved up to the 90s. She was tachycardic and round with rates in the 110s, blood pressure with systolic of 110. on arrival patient workup with leukocytosis 18,000 with neutrophilia. Her VBG is concerning for metabolic acidosis pH 7.21, CO2 low at 26, bicarb low at 10, lactate 10.4. Patient's potassium on chemistry 3.0, this was repleted with IV potassium. KRISTIE with creatinine 1.7 up from normal baseline. Patient given fluids for this. Initial troponin 0.04, repeat troponin 0.05. LFTs nonactionable. Lipase negative. Urinalysis without concern for UTI. CT of the chest abdomen and pelvis without acute concern for any abnormalities. CT head without intracranial hemorrhage or intracranial abnormality. Findings discussed with ED. Agreed for admission. Patient medically stable for placement once guardianship established. APS evaluating and working with case management. Bladder training, Chowdary remains in place. Problems addressed as follows: Acute hypoxemic respiratory failure. Resolved Acute metabolic acidosis: likely dehydration, hypoxia KRISTIE: Resolved - Case being evaluated by APS. Awaiting guardianship and then subsequent placement. - Will obtain labs weekly. Urinary retention: Failed attempts to remove Chowdary. Will continue to have Chowdary admission. Will continue tamsulosin 0.4 mg twice daily Hx of NIDDM: A1c normal if not overly controlled at 4.9. Continue metformin 500 mg twice daily. No insulin at this time. Heparin for dvt ppx protonix Full code PT and OT working with patient. Case management assisting with decision making capacity/potential guardianship for referral to rehab. no change in plan today 02/07/2024
[2024-02-07 16:00] VITALS: BP 110/56; PULSE 83; RESP 24; TEMP 36.9; O2SAT 100
[2024-02-07] MEDS: PRENATAL MULTIVITAMIN W/IRON 1 EACH PO (16:49)
--- NOTE | 2024-02-07 18:41 | PC.NURSE ---
pt sat in chair for meals, tolerating food well, uses bedside commode.
[2024-02-07 20:00] VITALS: BP 109/50; PULSE 96; RESP 16; TEMP 36.5; O2SAT 98
[2024-02-07] MEDS: FAMOTIDINE 20MG TABLET 20 MG PO (21:37)
[2024-02-07] MEDS: hydrOXYzine pamoate 25MG CAPSULE 50 MG PO (21:37)
[2024-02-08 04:00] VITALS: BP 110/49; PULSE 81; RESP 16; TEMP 36.7; O2SAT 94; BMI 24.2
--- NOTE | 2024-02-08 05:41 | PC.NURSE ---
patient has rested well tonight. NAD and VSS. Bed alarm on for safety.
[2024-02-08 08:00] VITALS: BP 110/53; PULSE 79; RESP 22; TEMP 36.7; O2SAT 97
[2024-02-08] MEDS: METFORMIN 500MG TABLET 500 MG PO ×2 (08:10→16:31)
[2024-02-08] MEDS: BUSPIRONE HCL 10 MG TABLET PO ×2 (08:11→20:00)
[2024-02-08] MEDS: CALCIUM POLYCARBOPHIL 625MG TAB 1250 MG PO (08:11)
[2024-02-08] MEDS: ASPIRIN 81MG CHEWABLE TABLET 81 MG PO (08:11)
[2024-02-08] MEDS: MAGNESIUM OXIDE 400MG TABLET 400 MG PO ×2 (08:12→20:00)
[2024-02-08] MEDS: FUROSEMIDE 40 MG TABLET PO (08:12)
[2024-02-08] MEDS: LORazepam 0.5MG TABLET 0.5 MG PO ×2 (08:12→20:00)
[2024-02-08] MEDS: METOPROLOL TARTRATE 25MG TABLET 12.5 MG PO ×2 (08:13→20:01)
[2024-02-08] MEDS: SERTRALINE 100MG TABLET 100 MG PO (08:14)
[2024-02-08] MEDS: NYSTATIN TOPICAL POWDER 30GM TP ×2 (08:14→20:02)
[2024-02-08] MEDS: TAMSULOSIN 0.4MG CAPSULE 0.4 MG PO ×2 (08:14→20:00)
[2024-02-08 15:57] VITALS: BP 106/64; PULSE 78; RESP 17; TEMP 36.7; O2SAT 97
--- NOTE | 2024-02-08 15:57 | EXP.PN ---
Subjective *Date: 02/08/24 *Time: 15:57 Interval history: seen at bedside, patient has no complains today, denied CO, SOB Exam Data for Last 24 hours Vital signs and Labs for Last 24 Hours: Temp Pulse Resp BP Pulse Ox O2 Del Method O2 Flow Rate 98.0 F 79 22 110/53 L 97 Room Air 3.5 02/08/24 08:00 02/08/24 08:00 02/08/24 08:00 02/08/24 08:00 02/08/24 08:00 02/08/24 13:00 01/11/24 00:00 I & O for Last 24 hours: Intake & Output 02/05/24 02/06/24 02/07/24 02/08/24 23:59 23:59 23:59 23:59 Intake Total 1550 / 1550 675 / 825 1300 / 1300 732 / 732 Output Total 1650 / 1650 1050 / 1550 1250 / 1250 450 / 450 Balance -100 / -100 -375 / -725 50 / 50 282 / 282 Weight 64.546 kg 64.5 kg 67.268 kg 65.952 kg Constitutional Constitutional: no acute distress *Routine HEENT Exam Head: Present normocephalic Eye: Present EOMI and PERRL ENT: Present mucous membranes moist *Routine Neck Exam Neck: Present supple; Absent lymphadenopathy *Routine Respiratory Exam Respiratory: Present CTA bilaterally *Routine Cardiovascular Exam Cardiovascular: Present RRR *Routine Abdominal Exam Abdominal: Present soft and normoactive bowel sounds; Absent tenderness *Routine Extremities Exam Extremities: Absent cyanosis, clubbing or edema *Routine Skin Exam Skin: Present warm; Absent rash *Routine Neurological Exam Neurological: Present alert and oriented X3 Assessment and Plan *Assessment and plan (1) Weakness: Status: Acute Category: Medical Code(s): R53.1 - Weakness (2) Urinary retention: Status: Acute Category: Medical Code(s): R33.9 - Retention of urine, unspecified (3) Fall: Status: Acute Category: Medical Code(s): W19.XXXA - Unspecified fall, initial encounter (4) Anemia: Status: Acute Category: Medical Code(s): D64.9 - Anemia, unspecified (5) Metabolic acidosis: Status: Resolved Category: Medical Code(s): E87.20 - Acidosis, unspecified (6) Acute hypoxemic respiratory failure: Status: Resolved Category: Medical Code(s): J96.01 - Acute respiratory failure with hypoxia (7) KRISTIE (acute kidney injury): Status: Resolved Category: Medical Code(s): N17.9 - Acute kidney failure, unspecified (8) Acute hypokalemia: Status: Resolved Category: Medical Code(s): E87.6 - Hypokalemia (9) Diabetes mellitus, type 2: Status: Acute Qualifiers: Diabetes mellitus electronics design engineer insulin use: without long-term use Diabetes mellitus complication status: with other specified complication Qualified Code(s): E11.69 - Type 2 diabetes mellitus with other specified complication Category: Medical Code(s): E11.9 - Type 2 diabetes mellitus without complications (10) Candidal dermatitis: Status: Acute Category: Medical Code(s): B37.2 - Candidiasis of skin and nail (11) Hypertension: Status: Acute Category: Medical Code(s): I10 - Essential (primary) hypertension (12) Sinus tachycardia: Status: Resolved Category: Medical Code(s): R00.0 - Tachycardia, unspecified Plan 73-year-old female with PMHx of insulin-dependent diabetes, resident from [facility] brought in by EMS to the emergency department with concern for SOB. EMS reports that patient was found on 2 L nasal cannula saturating only in the 70s, they placed her on 4 L and she improved up to the 90s. She was tachycardic and round with rates in the 110s, blood pressure with systolic of 110. on arrival patient workup with leukocytosis 18,000 with neutrophilia. Her VBG is concerning for metabolic acidosis pH 7.21, CO2 low at 26, bicarb low at 10, lactate 10.4. Patient's potassium on chemistry 3.0, this was repleted with IV potassium. KRISTIE with creatinine 1.7 up from normal baseline. Patient given fluids for this. Initial troponin 0.04, repeat troponin 0.05. LFTs nonactionable. Lipase negative. Urinalysis without concern for UTI. CT of the chest abdomen and pelvis without acute concern for any abnormalities. CT head without intracranial hemorrhage or intracranial abnormality. Findings discussed with ED. Agreed for admission. Patient medically stable for placement once guardianship established. APS evaluating and working with case management. Bladder training, Chowdary remains in place. Problems addressed as follows: Acute hypoxemic respiratory failure. Resolved Acute metabolic acidosis: likely dehydration, hypoxia KRISTIE: Resolved - Case being evaluated by APS. Awaiting guardianship and then subsequent placement. - Will obtain labs weekly. Urinary retention: Failed attempts to remove Chowdary. Will continue to have Chowdary admission. Will continue tamsulosin 0.4 mg twice daily Hx of NIDDM: A1c normal if not overly controlled at 4.9. Continue metformin 500 mg twice daily. No insulin at this time. Heparin for dvt ppx protonix Full code PT and OT following, Case management assisting with decision making capacity/potential guardianship for referral to rehab. no change in plan today 02/08/2024
[2024-02-08] MEDS: PRENATAL MULTIVITAMIN W/IRON 1 EACH PO (16:30)
--- NOTE | 2024-02-08 17:26 | PC.NURSE ---
no acute changes since previous assessment. currently up to chair for supper and tolerating well.
[2024-02-08 20:00] VITALS: BP 146/75; PULSE 76; RESP 18; TEMP 36.6; O2SAT 97
[2024-02-08] MEDS: FAMOTIDINE 20MG TABLET 20 MG PO (20:00)
[2024-02-08] MEDS: hydrOXYzine pamoate 25MG CAPSULE 50 MG PO (20:00)
[2024-02-09 04:00] VITALS: BP 104/60; PULSE 73; RESP 18; TEMP 37; O2SAT 95; BMI 24.2
[2024-02-09 08:00] VITALS: BP 106/47; PULSE 81; RESP 20; TEMP 36.6; O2SAT 97
[2024-02-09] MEDS: ASPIRIN 81MG CHEWABLE TABLET 81 MG PO (08:11)
[2024-02-09] MEDS: BUSPIRONE HCL 10 MG TABLET PO ×2 (08:11→20:29)
[2024-02-09] MEDS: CALCIUM POLYCARBOPHIL 625MG TAB 1250 MG PO (08:12)
[2024-02-09] MEDS: METFORMIN 500MG TABLET 500 MG PO ×2 (08:12→16:30)
[2024-02-09] MEDS: FUROSEMIDE 40 MG TABLET PO (08:12)
[2024-02-09] MEDS: TAMSULOSIN 0.4MG CAPSULE 0.4 MG PO ×2 (08:12→20:29)
[2024-02-09] MEDS: MAGNESIUM OXIDE 400MG TABLET 400 MG PO ×2 (08:12→20:29)
[2024-02-09] MEDS: SERTRALINE 100MG TABLET 100 MG PO (08:12)
[2024-02-09] MEDS: LORazepam 0.5MG TABLET 0.5 MG PO ×2 (08:15→20:29)
[2024-02-09] MEDS: METOPROLOL TARTRATE 25MG TABLET 12.5 MG PO ×2 (08:16→20:29)
[2024-02-09] MEDS: NYSTATIN TOPICAL POWDER 30GM TP ×2 (08:16→20:32)
--- NOTE | 2024-02-09 14:09 | EXP.PN ---
Subjective *Date: 02/09/24 *Time: 14:09 Interval history: no complains today, sitting in chair and having breakfast, denied any acute events overnight Exam Data for Last 24 hours Vital signs and Labs for Last 24 Hours: Temp Pulse Resp BP Pulse Ox O2 Del Method O2 Flow Rate 97.9 F 81 20 106/47 L 97 Room Air 3.5 02/09/24 08:00 02/09/24 08:00 02/09/24 08:00 02/09/24 08:00 02/09/24 08:00 02/09/24 13:00 01/11/24 00:00 I & O for Last 24 hours: Intake & Output 02/06/24 02/07/24 02/08/24 02/09/24 23:59 23:59 23:59 23:59 Intake Total 675 / 825 1300 / 1300 892 / 892 305 / 305 Output Total 1050 / 1550 1250 / 1250 950 / 950 400 / 400 Balance -375 / -725 50 / 50 -58 / -58 -95 / -95 Weight 64.5 kg 67.268 kg 65.952 kg 65.952 kg Constitutional Constitutional: no acute distress *Routine HEENT Exam Head: Present normocephalic Eye: Present EOMI and PERRL ENT: Present mucous membranes moist *Routine Neck Exam Neck: Present supple; Absent lymphadenopathy *Routine Respiratory Exam Respiratory: Present CTA bilaterally *Routine Cardiovascular Exam Cardiovascular: Present RRR *Routine Abdominal Exam Abdominal: Present soft and normoactive bowel sounds; Absent tenderness *Routine Extremities Exam Extremities: Absent cyanosis, clubbing or edema *Routine Skin Exam Skin: Present warm; Absent rash *Routine Neurological Exam Neurological: Present alert and oriented X3 Assessment and Plan *Assessment and plan (1) Weakness: Status: Acute Category: Medical Code(s): R53.1 - Weakness (2) Urinary retention: Status: Acute Category: Medical Code(s): R33.9 - Retention of urine, unspecified (3) Fall: Status: Acute Category: Medical Code(s): W19.XXXA - Unspecified fall, initial encounter (4) Anemia: Status: Acute Category: Medical Code(s): D64.9 - Anemia, unspecified (5) Metabolic acidosis: Status: Resolved Category: Medical Code(s): E87.20 - Acidosis, unspecified (6) Acute hypoxemic respiratory failure: Status: Resolved Category: Medical Code(s): J96.01 - Acute respiratory failure with hypoxia (7) KRISTIE (acute kidney injury): Status: Resolved Category: Medical Code(s): N17.9 - Acute kidney failure, unspecified (8) Acute hypokalemia: Status: Resolved Category: Medical Code(s): E87.6 - Hypokalemia (9) Diabetes mellitus, type 2: Status: Acute Qualifiers: Diabetes mellitus petroleum terminal plant operator insulin use: without [facility] use Diabetes mellitus complication status: with other specified complication Qualified Code(s): E11.69 - Type 2 diabetes mellitus with other specified complication Category: Medical Code(s): E11.9 - Type 2 diabetes mellitus without complications (10) Candidal dermatitis: Status: Acute Category: Medical Code(s): B37.2 - Candidiasis of skin and nail (11) Hypertension: Status: Acute Category: Medical Code(s): I10 - Essential (primary) hypertension (12) Sinus tachycardia: Status: Resolved Category: Medical Code(s): R00.0 - Tachycardia, unspecified Plan 73-year-old female with PMHx of insulin-dependent diabetes, resident from [facility] brought in by EMS to the emergency department with concern for SOB. EMS reports that patient was found on 2 L nasal cannula saturating only in the 70s, they placed her on 4 L and she improved up to the 90s. She was tachycardic and round with rates in the 110s, blood pressure with systolic of 110. on arrival patient workup with leukocytosis 18,000 with neutrophilia. Her VBG is concerning for metabolic acidosis pH 7.21, CO2 low at 26, bicarb low at 10, lactate 10.4. Patient's potassium on chemistry 3.0, this was repleted with IV potassium. KRISTIE with creatinine 1.7 up from normal baseline. Patient given fluids for this. Initial troponin 0.04, repeat troponin 0.05. LFTs nonactionable. Lipase negative. Urinalysis without concern for UTI. CT of the chest abdomen and pelvis without acute concern for any abnormalities. CT head without intracranial hemorrhage or intracranial abnormality. Findings discussed with ED. Agreed for admission. Patient medically stable for placement once guardianship established. APS evaluating and working with case management. Bladder training, Chowdary remains in place. Problems addressed as follows: Acute hypoxemic respiratory failure. Resolved Acute metabolic acidosis: likely dehydration, hypoxia KRISTIE: Resolved - Case being evaluated by APS. Awaiting guardianship and then subsequent placement. - Will obtain labs weekly. Urinary retention: Failed attempts to remove Chowdary. Will continue to have Chowdary admission. Will continue tamsulosin 0.4 mg twice daily Hx of NIDDM: A1c normal if not overly controlled at 4.9. Continue metformin 500 mg twice daily. No insulin at this time. Heparin for dvt ppx protonix Full code Case being evaluated by APS. Awaiting guardianship and then subsequent placement. no change in plan today 02/09/2024
[2024-02-09 15:39] VITALS: BP 100/56; PULSE 89; RESP 22; TEMP 36.9; O2SAT 99
[2024-02-09] MEDS: PRENATAL MULTIVITAMIN W/IRON 1 EACH PO (16:30)
--- NOTE | 2024-02-09 17:46 | PC.NURSE ---
ALERT TO SELF T/O SHIFT. REMAINS PLEASANTLY CONFUSED. UP TO CHAIR MAJORITY OF SHIFT. TOLERATING RA WELL. HAS HAD NO NEEDS OR C/O. F/C PRESENT DRAINING DARK YELLOW URINE. VSS.
[2024-02-09 20:00] VITALS: BP 110/55; PULSE 82; RESP 16; TEMP 36.9; O2SAT 100
[2024-02-09] MEDS: FAMOTIDINE 20MG TABLET 20 MG PO (20:29)
[2024-02-09] MEDS: hydrOXYzine pamoate 25MG CAPSULE 50 MG PO (20:30)
[2024-02-10] VITALS: BP 136/65; PULSE 75; RESP 17; TEMP 36.6; O2SAT 93
[2024-02-10 04:00] VITALS: BP 122/64; PULSE 90; RESP 16; TEMP 36.9; O2SAT 96; BMI 24.9
[2024-02-10 07:59] LABS: Blood Urea Nitrogen 14 mg/dl (7-17); Carbon Dioxide 26 mmol/L (22.0-30.0); Chloride 104 mmol/L (98-107); Creatinine Clearance Estimated 53 mL/min (50-200); Estimated Glomerular Filt Rate 82 ml/min (>60); GFR (African American) 99 ML/MIN (>60); Glucose 131 mg/dl (74-100); Sodium 137 mmol/L (136-145)
[2024-02-10 08:00] VITALS: BP 111/70; PULSE 82; RESP 16; TEMP 36.7; O2SAT 98
[2024-02-10] MEDS: ASPIRIN 81MG CHEWABLE TABLET 81 MG PO (08:01)
[2024-02-10] MEDS: METFORMIN 500MG TABLET 500 MG PO ×2 (08:01→16:30)
[2024-02-10] MEDS: LORazepam 0.5MG TABLET 0.5 MG PO ×2 (08:01→20:41)
[2024-02-10] MEDS: ERGOCALCIFEROL 50,000 UNITS (1.25MG) CAPSULE 50000 UNIT PO (08:02)
[2024-02-10] MEDS: FUROSEMIDE 40 MG TABLET PO (08:02)
[2024-02-10] MEDS: CALCIUM POLYCARBOPHIL 625MG TAB 1250 MG PO (08:02)
[2024-02-10] MEDS: SERTRALINE 100MG TABLET 100 MG PO (08:02)
[2024-02-10] MEDS: TAMSULOSIN 0.4MG CAPSULE 0.4 MG PO ×2 (08:02→20:41)
[2024-02-10] MEDS: NYSTATIN TOPICAL POWDER 30GM TP ×2 (08:03→20:49)
[2024-02-10] MEDS: METOPROLOL TARTRATE 25MG TABLET 12.5 MG PO ×2 (08:03→20:41)
[2024-02-10] MEDS: BUSPIRONE HCL 10 MG TABLET PO ×2 (08:04→20:41)
[2024-02-10] MEDS: MAGNESIUM OXIDE 400MG TABLET 400 MG PO ×2 (08:04→20:41)
[2024-02-10 16:00] VITALS: BP 99/51; PULSE 91; RESP 20; TEMP 36.8; O2SAT 97
[2024-02-10] MEDS: PRENATAL MULTIVITAMIN W/IRON 1 EACH PO (16:28)
--- NOTE | 2024-02-10 17:57 | P.PN_ITS ---
Subjective *Date: 02/10/24 *Time: 17:57 Interval history: Pleasant on exam this morning. No complaints. Tolerating p.o. intake. Labs reviewed and normal. Discussed removing catheter today. Patient would like to try to proceed. Discussed with nurse doing bladder training. Clamping this morning. Medical Exam Vital signs and Labs for Last 24 Hours: Vital Signs Temp Pulse Resp BP BP Pulse Ox O2 Del Method 02/10/24 17:05 Room Air 02/10/24 16:00 98.2 F 91 H 20 99/51 L 97 Room Air 02/10/24 15:00 Room Air 02/10/24 13:00 Room Air 02/10/24 10:50 Room Air 02/10/24 09:00 Room Air 02/10/24 08:00 98 Room Air 02/10/24 08:00 98.1 F 82 16 111/70 98 Room Air 02/10/24 06:30 Room Air 02/10/24 04:53 Room Air 02/10/24 04:00 98.5 F 90 16 122/64 96 Room Air 02/10/24 00:00 97.9 F 75 17 136/65 93 L Room Air 02/09/24 21:00 Room Air 02/09/24 20:00 Room Air 02/09/24 20:00 98.4 F 82 16 110/55 L 100 Room Air 02/09/24 18:46 Room Air Intake and Output 02/10/24 02/10/24 02/10/24 07:59 15:59 23:59 Intake Total 120 / 600 480 / 600 Output Total 1000 / 1450 450 / 1450 0 / 1450 Balance -880 / -850 30 / -850 0 / -850 Intake: Intake, Oral Amount 120 / 600 480 / 600 Output: Output, Urine Amount 1000 / 1450 450 / 1450 0 / 1450 Other: Number of Unmeasured Voids 0 Number of Bowel Movements 1 1 Weight 67.903 kg Patient Weight 02/10/24 23:59 Weight 67.903 kg Laboratory Results - last 24 hr 02/10/24 06:41: Sodium 137, Potassium 4.0, Chloride 104, Carbon Dioxide 26, Anion Gap 11.0, BUN 14, Creatinine 0.70, Estimated Creat Clear 53, Estimated GFR 82, Est GFR ( Amer) 99, Glucose 131 H, Calcium 9.0 I & O for Labs for Last 24 Hours: Intake & Output 02/07/24 02/08/24 02/09/24 02/10/24 23:59 23:59 23:59 23:59 Intake Total 1300 / 1300 892 / 892 935 / 1055 600 / 600 Output Total 1250 / 1250 950 / 950 400 / 400 1450 / 1450 Balance 50 / 50 -58 / -58 535 / 655 -850 / -850 Weight 67.268 kg 65.952 kg 65.952 kg 67.903 kg Constitutional: Present no acute distress, average body habitus and cooperative Head: Present atraumatic and normocephalic ENT: Present normal exam Respiratory: Present normal respiratory effort; Absent rhonchi, wheezes or crackles Cardiac: Present Reg Rate and Rhythm GI: Present soft and normal bowel sounds; Absent distention or tenderness Comment:: Chowdary in place Extremities: Present normal inspection, full ROM and edema (1+ to knees) Skin: Present intact; Absent erythema Neuro: Present Essential Tremor, Grossly Intact, alert, awake and moves all extremities Comment:: Oriented to self only Assessment and Plan *Assessment and plan (1) Weakness: Status: Acute Category: Medical Code(s): R53.1 - Weakness (2) Urinary retention: Status: Acute Category: Medical Code(s): R33.9 - Retention of urine, unspecified (3) Fall: Status: Acute Category: Medical Code(s): W19.XXXA - Unspecified fall, initial encounter (4) Anemia: Status: Acute Category: Medical Code(s): D64.9 - Anemia, unspecified (5) Metabolic acidosis: Status: Resolved Category: Medical Code(s): E87.20 - Acidosis, unspecified (6) Acute hypoxemic respiratory failure: Status: Resolved Category: Medical Code(s): J96.01 - Acute respiratory failure with hypoxia (7) KRISTIE (acute kidney injury): Status: Resolved Category: Medical Code(s): N17.9 - Acute kidney failure, unspecified (8) Acute hypokalemia: Status: Resolved Category: Medical Code(s): E87.6 - Hypokalemia (9) Diabetes mellitus, type 2: Status: Acute Qualifiers: Diabetes mellitus logistics vice president insulin use: without prison use Diabetes mellitus complication status: with other specified complication Qualified Code(s): E11.69 - Type 2 diabetes mellitus with other specified complication Category: Medical Code(s): E11.9 - Type 2 diabetes mellitus without complications (10) Candidal dermatitis: Status: Acute Category: Medical Code(s): B37.2 - Candidiasis of skin and nail (11) Hypertension: Status: Acute Category: Medical Code(s): I10 - Essential (primary) hypertension (12) Sinus tachycardia: Status: Resolved Category: Medical Code(s): R00.0 - Tachycardia, unspecified Plan 73-year-old female with PMHx of insulin-dependent diabetes, resident from [facility] brought in by EMS to the emergency department with concern for SOB. EMS reports that patient was found on 2 L nasal cannula saturating only in the 70s, they placed her on 4 L and she improved up to the 90s. She was tachycardic and round with rates in the 110s, blood pressure with systolic of 110. on arrival patient workup with leukocytosis 18,000 with neutrophilia. Her VBG is concerning for metabolic acidosis pH 7.21, CO2 low at 26, bicarb low at 10, lactate 10.4. Patient's potassium on chemistry 3.0, this was repleted with IV potassium. KRISTIE with creatinine 1.7 up from normal baseline. Patient given fluids for this. Initial troponin 0.04, repeat troponin 0.05. LFTs nonactionable. Lipase negative. Urinalysis without concern for UTI. CT of the chest abdomen and pelvis without acute concern for any abnormalities. CT head without intracranial hemorrhage or intracranial abnormality. Findings discussed with ED. Agreed for admission. Patient has shown improvement, kidney function is normalized. No signs of infection at this time. Currently awaiting guardianship. Initiating bladder training with Chowdary in place today. Case management assisting with APS. Problems addressed as follows: Acute hypoxemic respiratory failure. Resolved Acute metabolic acidosis: likely dehydration, hypoxia; resolved KRISTIE: Resolved - Case being evaluated by APS. Awaiting guardianship and then subsequent placement. -Continue multivitamin with iron -Chemistry panel with sodium 137, BUN 14 and creatinine 0.7. Urinary retention: Multiple failed attempts of Chowdary removal. Has had Chowdary in place for over 2 weeks, will attempt bladder training again at this time. Proceeding with clamping and bladder training today per nursing. If does well, will attempt removal tomorrow. Continue tamsulosin 0.4 mg twice daily. Hx of NIDDM: A1c normal if not overly controlled at 4.9. Continue metformin 500 mg twice daily. No insulin at this time. Morning glucose 131. Heparin for dvt ppx protonix Full code PT and OT working with patient. Case management assisting with decision making capacity/potential guardianship for referral to rehab.
--- NOTE | 2024-02-10 18:13 | PC.NURSE ---
Alert and oriented to self only. Has been up to chair most of shift. Chowdary catheter in place and draining. Attempting to bladder train throughout shift per MD. Last clamped at 1805 for 30 minutes. Vital signs stable. Bed and chair alarms in use throughout shift and side rails up. No complaints today. Call light within reach.
[2024-02-10 20:00] VITALS: BP 126/48; PULSE 79; RESP 18; TEMP 36.9; O2SAT 98
[2024-02-10] MEDS: FAMOTIDINE 20MG TABLET 20 MG PO (20:41)
[2024-02-10] MEDS: hydrOXYzine pamoate 25MG CAPSULE 50 MG PO (20:41)
[2024-02-11 04:00] VITALS: BP 115/66; PULSE 82; RESP 17; TEMP 36.6; O2SAT 96; BMI 24.6
--- NOTE | 2024-02-11 07:03 | PC.NURSE ---
No acute changes. Pt has slept well t/o shift. Bladder training performed t/o night. soto in place draining clear bright yellow urine. No complaints voiced to staff. Call light within reach.
[2024-02-11 07:45] LABS: Anion Gap 15.6 mEq/L (5-15); Blood Urea Nitrogen 12 mg/dl (7-17); Calcium 9.5 mg/dl (8.4-10.2); Carbon Dioxide 26 mmol/L (22.0-30.0); Chloride 101 mmol/L (98-107); Creatinine Clearance Estimated 52 mL/min (50-200); Estimated Glomerular Filt Rate 82 ml/min (>60); GFR (African American) 99 ML/MIN (>60); Glucose 148 mg/dl (74-100); Potassium 3.6 mmoL/L (3.5-5.1); Sodium 139 mmol/L (136-145)
--- NOTE | 2024-02-11 07:51 | EXP.ACUTE.PN ---
Subjective *Date: 02/11/24 *Time: 13:19 Interval history: Patient alert and oriented to self on exam this morning. In bedside chair. No acute complaints. Stable on room air. Tolerating p.o. intake. Having urge to pee when Chowdary catheter is clamped. Will attempt to remove catheter today Medical Exam Vital signs and Labs for Last 24 Hours: Vital Signs Temp Pulse Resp BP BP Pulse Ox O2 Del Method 02/11/24 06:27 Room Air 02/11/24 05:00 Room Air 02/11/24 04:00 97.9 F 82 17 115/66 96 Room Air 02/11/24 03:00 Room Air 02/11/24 01:08 Room Air 02/10/24 22:56 Room Air 02/10/24 21:00 Room Air 02/10/24 20:00 98.5 F 79 18 126/48 L 98 Room Air 02/10/24 19:54 Room Air 02/10/24 18:43 Room Air 02/10/24 17:05 Room Air 02/10/24 16:00 98.2 F 91 H 20 99/51 L 97 Room Air 02/10/24 15:00 Room Air 02/10/24 13:00 Room Air 02/10/24 10:50 Room Air 02/10/24 09:00 Room Air 02/10/24 08:00 98 Room Air 02/10/24 08:00 98.1 F 82 16 111/70 98 Room Air Intake and Output 02/10/24 02/10/24 02/11/24 15:59 23:59 07:59 Intake Total 480 / 840 240 / 840 Output Total 450 / 1700 250 / 1700 300 / 300 Balance 30 / -860 -10 / -860 -300 / -300 Intake: Intake, Oral Amount 480 / 840 240 / 840 Output: Output, Urine Amount 450 / 1700 250 / 1700 300 / 300 Other: Number of Unmeasured Voids 0 Number of Bowel Movements 1 Weight 67.177 kg Patient Weight 02/11/24 23:59 Weight 67.177 kg Laboratory Results - last 24 hr 02/10/24 06:41: Sodium 137, Potassium 4.0, Chloride 104, Carbon Dioxide 26, Anion Gap 11.0, BUN 14, Creatinine 0.70, Estimated Creat Clear 53, Estimated GFR 82, Est GFR ( Amer) 99, Glucose 131 H, Calcium 9.0 02/11/24 07:07: Sodium 139, Potassium 3.6, Chloride 101, Carbon Dioxide 26, Anion Gap 15.6 H, BUN 12, Creatinine 0.70, Estimated Creat Clear 52, Estimated GFR 82, Est GFR ( Amer) 99, Glucose 148 H, Calcium 9.5 I & O for Labs for Last 24 Hours: Intake & Output 02/08/24 02/09/24 02/10/24 02/11/24 23:59 23:59 23:59 23:59 Intake Total 892 / 892 935 / 1055 840 / 840 Output Total 950 / 950 400 / 400 1700 / 1700 300 / 300 Balance -58 / -58 535 / 655 -860 / -860 -300 / -300 Weight 65.952 kg 65.952 kg 67.903 kg 67.177 kg Constitutional: Present no acute distress, average body habitus and cooperative Head: Present atraumatic and normocephalic ENT: Present normal exam Respiratory: Present normal respiratory effort; Absent rhonchi, wheezes or crackles Cardiac: Present Reg Rate and Rhythm GI: Present soft and normal bowel sounds; Absent distention or tenderness Comment:: Chowdary in place Extremities: Present normal inspection, full ROM and edema (1+ to knees) Skin: Present intact; Absent erythema Neuro: Present Essential Tremor, Grossly Intact, alert, awake and moves all extremities Comment:: Oriented to self only Assessment and Plan *Assessment and plan (1) Weakness: Status: Acute Category: Medical Code(s): R53.1 - Weakness (2) Urinary retention: Status: Acute Category: Medical Code(s): R33.9 - Retention of urine, unspecified (3) Fall: Status: Acute Category: Medical Code(s): W19.XXXA - Unspecified fall, initial encounter (4) Anemia: Status: Acute Category: Medical Code(s): D64.9 - Anemia, unspecified (5) Acute hypoxemic respiratory failure: Status: Resolved Category: Medical Code(s): J96.01 - Acute respiratory failure with hypoxia (6) Acute hypokalemia: Status: Resolved Category: Medical Code(s): E87.6 - Hypokalemia (7) Diabetes mellitus, type 2: Status: Acute Qualifiers: Diabetes mellitus retirement insulin use: without long term care social worker use Diabetes mellitus complication status: with other specified complication Qualified Code(s): E11.69 - Type 2 diabetes mellitus with other specified complication Category: Medical Code(s): E11.9 - Type 2 diabetes mellitus without complications (8) Candidal dermatitis: Status: Acute Category: Medical Code(s): B37.2 - Candidiasis of skin and nail (9) Hypertension: Status: Acute Category: Medical Code(s): I10 - Essential (primary) hypertension Plan 73-year-old female with PMHx of insulin-dependent diabetes, resident from [facility] brought in by EMS to the emergency department with concern for SOB. EMS reports that patient was found on 2 L nasal cannula saturating only in the 70s, they placed her on 4 L and she improved up to the 90s. She was tachycardic and round with rates in the 110s, blood pressure with systolic of 110. on arrival patient workup with leukocytosis 18,000 with neutrophilia. Her VBG is concerning for metabolic acidosis pH 7.21, CO2 low at 26, bicarb low at 10, lactate 10.4. Patient's potassium on chemistry 3.0, this was repleted with IV potassium. KRISTIE with creatinine 1.7 up from normal baseline. Patient given fluids for this. Initial troponin 0.04, repeat troponin 0.05. LFTs nonactionable. Lipase negative. Urinalysis without concern for UTI. CT of the chest abdomen and pelvis without acute concern for any abnormalities. CT head without intracranial hemorrhage or intracranial abnormality. Findings discussed with ED. Agreed for admission. Patient has shown improvement, kidney function is normalized. No signs of infection at this time. Currently awaiting guardianship. Plan for Chowdary removal today. Tolerating bladder training. Having urge to urinate. Case management assisting with APS. Problems addressed as follows: Acute hypoxemic respiratory failure. Resolved Acute metabolic acidosis: likely dehydration, hypoxia; resolved KRISTIE: Resolved - Case being evaluated by APS. Awaiting guardianship and then subsequent placement. -Continue multivitamin with iron -Lab holiday today Urinary retention: - Bladder training for the past 24 hours. Having urge to pee prior to unclamping. Will remove Chowdary today. - Continue tamsulosin 0.4 mg twice daily. Hx of NIDDM: A1c normal if not overly controlled at 4.9. Continue metformin 500 mg twice daily. No insulin at this time. Morning glucose 131. Heparin for dvt ppx protonix Full code PT and OT working with patient. Case management assisting with decision making capacity/potential guardianship for referral to rehab.
[2024-02-11 08:00] VITALS: BP 114/62; PULSE 76; RESP 16; TEMP 36.9; O2SAT 96
[2024-02-11] MEDS: METFORMIN 500MG TABLET 500 MG PO ×2 (09:53→17:12)
[2024-02-11] MEDS: MAGNESIUM OXIDE 400MG TABLET 400 MG PO ×2 (09:53→21:00)
[2024-02-11] MEDS: CALCIUM POLYCARBOPHIL 625MG TAB 1250 MG PO (09:53)
[2024-02-11] MEDS: SERTRALINE 100MG TABLET 100 MG PO (09:53)
[2024-02-11] MEDS: TAMSULOSIN 0.4MG CAPSULE 0.4 MG PO ×2 (09:53→21:00)
[2024-02-11] MEDS: BUSPIRONE HCL 10 MG TABLET PO ×2 (09:53→21:00)
[2024-02-11] MEDS: ASPIRIN 81MG CHEWABLE TABLET 81 MG PO (09:53)
[2024-02-11] MEDS: FUROSEMIDE 40 MG TABLET PO (09:53)
[2024-02-11] MEDS: METOPROLOL TARTRATE 25MG TABLET 12.5 MG PO ×2 (09:54→21:00)
[2024-02-11] MEDS: NYSTATIN TOPICAL POWDER 30GM TP ×2 (10:03→21:01)
[2024-02-11] MEDS: LORazepam 0.5MG TABLET 0.5 MG PO ×2 (10:03→21:00)
[2024-02-11 16:00] VITALS: BP 118/88; PULSE 82; RESP 20; TEMP 36.9; O2SAT 96
[2024-02-11] MEDS: PRENATAL MULTIVITAMIN W/IRON 1 EACH PO (17:13)
[2024-02-11 20:00] VITALS: BP 115/54; PULSE 85; RESP 18; TEMP 36.6; O2SAT 99
[2024-02-11] MEDS: FAMOTIDINE 20MG TABLET 20 MG PO (21:00)
[2024-02-11] MEDS: hydrOXYzine pamoate 25MG CAPSULE 50 MG PO (21:04)
[2024-02-12 04:00] VITALS: BP 107/48; PULSE 84; RESP 16; TEMP 36.8; O2SAT 96; BMI 25.0
--- NOTE | 2024-02-12 05:39 | PC.NURSE ---
Pt a/o x1. Pt soto removed yesterday around 1500 per day shift RN and pt had not voided by 2200. Bladder scanner showed 158ml urine. notified with plans to rescan around 0400. Pt was able to void on BSC @ 0300. Pt has not voiced any complaints to staff t/o shift. Call light within reach. Bed alarm on for pt safety.
[2024-02-12 07:49] VITALS: BP 102/50; PULSE 77; RESP 16; TEMP 36.7; O2SAT 97
[2024-02-12] MEDS: METOPROLOL TARTRATE 25MG TABLET 12.5 MG PO ×2 (08:01→20:40)
[2024-02-12] MEDS: TAMSULOSIN 0.4MG CAPSULE 0.4 MG PO ×2 (08:01→20:39)
[2024-02-12] MEDS: FUROSEMIDE 40 MG TABLET PO (08:01)
[2024-02-12] MEDS: METFORMIN 500MG TABLET 500 MG PO ×2 (08:01→16:41)
[2024-02-12] MEDS: ASPIRIN 81MG CHEWABLE TABLET 81 MG PO (08:01)
[2024-02-12] MEDS: CALCIUM POLYCARBOPHIL 625MG TAB 1250 MG PO (08:01)
[2024-02-12] MEDS: MAGNESIUM OXIDE 400MG TABLET 400 MG PO ×2 (08:02→20:39)
[2024-02-12] MEDS: LORazepam 0.5MG TABLET 0.5 MG PO ×2 (08:02→20:39)
[2024-02-12] MEDS: NYSTATIN TOPICAL POWDER 30GM TP ×2 (08:02→20:39)
[2024-02-12] MEDS: SERTRALINE 100MG TABLET 100 MG PO (08:02)
[2024-02-12] MEDS: BUSPIRONE HCL 10 MG TABLET PO ×2 (08:02→20:39)
[2024-02-12 15:56] VITALS: BP 105/52; PULSE 83; RESP 16; TEMP 37.2; O2SAT 98
[2024-02-12] MEDS: PRENATAL MULTIVITAMIN W/IRON 1 EACH PO (16:41)
--- NOTE | 2024-02-12 17:01 | PC.NURSE ---
Patient is alert & oriented x1. Tolerating room air well. Has voided via bedside commode through shift when needed. Has not had any complaints throughout shift. Call light within reach. Bed and chair alarm in use throughout shift.
--- NOTE | 2024-02-12 17:07 | P.PN_ITS ---
Subjective *Date: 02/12/24 *Time: 17:07 Interval history: Voiding independently. Stable on room air. Tolerating p.o. intake. Afebrile. Medical Exam Vital signs and Labs for Last 24 Hours: Vital Signs Temp Pulse Resp BP BP Pulse Ox O2 Del Method 02/12/24 16:40 Room Air 02/12/24 15:56 98.9 F 83 16 105/52 L 98 Room Air 02/12/24 14:41 Room Air 02/12/24 11:00 Room Air 02/12/24 09:00 Room Air 02/12/24 07:49 98.1 F 77 16 102/50 L 97 Room Air 02/12/24 07:00 Room Air 02/12/24 04:55 Room Air 02/12/24 04:00 98.2 F 84 16 107/48 L 96 Room Air 02/12/24 02:51 Room Air 02/12/24 01:00 Room Air 02/11/24 23:00 Room Air 02/11/24 21:00 Room Air 02/11/24 20:00 Room Air 02/11/24 20:00 97.8 F 85 18 115/54 L 99 Room Air 02/11/24 18:41 Room Air 02/11/24 18:26 Room Air Intake and Output 02/12/24 02/12/24 02/12/24 07:59 15:59 23:59 Intake Total 960 / 960 Output Total 0 / 150 150 / 150 Balance 0 / 810 810 / 810 Intake: Intake, Oral Amount 960 / 960 Output: Output, Urine Amount 0 / 150 150 / 150 Other: Number of Unmeasured Voids 1 Weight 68.13 kg Patient Weight 02/12/24 23:59 Weight 68.13 kg I & O for Labs for Last 24 Hours: Intake & Output 02/09/24 02/10/24 02/11/24 02/12/24 23:59 23:59 23:59 23:59 Intake Total 935 / 1055 840 / 840 600 / 600 960 / 960 Output Total 400 / 400 1700 / 1700 700 / 700 150 / 150 Balance 535 / 655 -860 / -860 -100 / -100 810 / 810 Weight 65.952 kg 67.903 kg 67.177 kg 68.13 kg Constitutional: Present no acute distress, average body habitus and cooperative Head: Present atraumatic and normocephalic ENT: Present normal exam Respiratory: Present normal respiratory effort; Absent rhonchi, wheezes or crackles Cardiac: Present Reg Rate and Rhythm GI: Present soft and normal bowel sounds; Absent distention or tenderness Extremities: Present normal inspection, full ROM and edema (1+ to knees) Skin: Present intact; Absent erythema Neuro: Present Essential Tremor, Grossly Intact, alert, awake and moves all extremities Comment:: Oriented to self only Assessment and Plan *Assessment and plan (1) Weakness: Status: Acute Category: Medical Code(s): R53.1 - Weakness (2) Urinary retention: Status: Acute Category: Medical Code(s): R33.9 - Retention of urine, unspecified (3) Fall: Status: Acute Category: Medical Code(s): W19.XXXA - Unspecified fall, initial encounter (4) Anemia: Status: Acute Category: Medical Code(s): D64.9 - Anemia, unspecified (5) Acute hypoxemic respiratory failure: Status: Resolved Category: Medical Code(s): J96.01 - Acute respiratory failure with hypoxia (6) Acute hypokalemia: Status: Resolved Category: Medical Code(s): E87.6 - Hypokalemia (7) Diabetes mellitus, type 2: Status: Acute Qualifiers: Diabetes mellitus group home insulin use: without manager terminal use Diabetes mellitus complication status: with other specified complication Qualified Code(s): E11.69 - Type 2 diabetes mellitus with other specified complication Category: Medical Code(s): E11.9 - Type 2 diabetes mellitus without complications (8) Candidal dermatitis: Status: Acute Category: Medical Code(s): B37.2 - Candidiasis of skin and nail (9) Hypertension: Status: Acute Category: Medical Code(s): I10 - Essential (primary) hypertension Plan 73-year-old female with PMHx of insulin-dependent diabetes, resident from [facility] brought in by EMS to the emergency department with concern for SOB. EMS reports that patient was found on 2 L nasal cannula saturating only in the 70s, they placed her on 4 L and she improved up to the 90s. She was tachycardic and round with rates in the 110s, blood pressure with systolic of 110. on arrival patient workup with leukocytosis 18,000 with neutrophilia. Her VBG is concerning for metabolic acidosis pH 7.21, CO2 low at 26, bicarb low at 10, lactate 10.4. Patient's potassium on chemistry 3.0, this was repleted with IV potassium. KRISTIE with creatinine 1.7 up from normal baseline. Patient given fluids for this. Initial troponin 0.04, repeat troponin 0.05. LFTs nonactionable. Lipase negative. Urinalysis without concern for UTI. CT of the chest abdomen and pelvis without acute concern for any abnormalities. CT head without intracranial hemorrhage or intracranial abnormality. Findings discussed with ED. Agreed for admission. Patient has shown improvement, kidney function is normalized. No signs of infection at this time. Currently awaiting guardianship. Chowdary removed yesterday, voiding independently. Will continue to monitor for replacement needed. Case management assisting with APS. Problems addressed as follows: Acute hypoxemic respiratory failure. Resolved Acute metabolic acidosis: likely dehydration, hypoxia; resolved KRISTIE: Resolved - Case being evaluated by APS. Awaiting guardianship and then subsequent placement. -Continue multivitamin with iron -Lab holiday today Urinary retention: -Tolerating removal of Chowdary so far. Voiding independently - Continue tamsulosin 0.4 mg twice daily. Hx of NIDDM: A1c normal if not overly controlled at 4.9. Continue metformin 500 mg twice daily. No insulin at this time. Morning glucose 131. Heparin for dvt ppx protonix Full code PT and OT working with patient. Case management assisting with decision making capacity/potential guardianship for referral to rehab.
[2024-02-12 20:00] VITALS: BP 107/47; PULSE 83; RESP 18; TEMP 36.8; O2SAT 97
[2024-02-12] MEDS: FAMOTIDINE 20MG TABLET 20 MG PO (20:39)
[2024-02-12] MEDS: hydrOXYzine pamoate 25MG CAPSULE 50 MG PO (20:40)
[2024-02-13 04:00] VITALS: BP 112/46; PULSE 87; RESP 18; TEMP 37.1; O2SAT 98; BMI 25.3
--- NOTE | 2024-02-13 05:53 | PC.NURSE ---
uneventful night, rested well, voiding without f/c. mental status at baseline
--- NOTE | 2024-02-13 07:09 | EXP.ACUTE.PN ---
Subjective *Date: 02/13/24 *Time: 07:09 Medical Exam Vital signs and Labs for Last 24 Hours: Vital Signs Temp Pulse Resp BP BP Pulse Ox O2 Del Method 02/13/24 07:00 Room Air 02/13/24 05:00 Room Air 02/13/24 04:00 98.8 F 87 18 112/46 L 98 Room Air 02/13/24 03:00 Room Air 02/13/24 01:00 Room Air 02/12/24 23:00 Room Air 02/12/24 21:00 Room Air 02/12/24 20:00 Room Air 02/12/24 20:00 98.2 F 83 18 107/47 L 97 Room Air 02/12/24 18:33 Room Air 02/12/24 16:40 Room Air 02/12/24 15:56 98.9 F 83 16 105/52 L 98 Room Air 02/12/24 14:41 Room Air 02/12/24 11:00 Room Air 02/12/24 09:00 Room Air 02/12/24 07:49 98.1 F 77 16 102/50 L 97 Room Air Intake and Output 02/12/24 02/12/24 02/13/24 15:59 23:59 07:59 Intake Total 960 / 1440 480 / 1440 Output Total 150 / 150 0 / 150 0 / 0 Balance 810 / 1290 480 / 1290 0 / 0 Intake: Intake, Oral Amount 960 / 1440 480 / 1440 Output: Output, Urine Amount 150 / 150 0 / 150 0 / 0 Other: Number of Unmeasured Voids 1 1 Number of Bowel Movements 1 1 Weight 69.082 kg Patient Weight 02/13/24 23:59 Weight 69.082 kg I & O for Labs for Last 24 Hours: Intake & Output 02/10/24 02/11/24 02/12/24 02/13/24 23:59 23:59 23:59 23:59 Intake Total 840 / 840 600 / 600 1440 / 1440 Output Total 1700 / 1700 700 / 700 150 / 150 0 / 0 Balance -860 / -860 -100 / -100 1290 / 1290 0 / 0 Weight 67.903 kg 67.177 kg 68.13 kg 69.082 kg Assessment and Plan *Assessment and plan (1) Weakness: Status: Acute Category: Medical Code(s): R53.1 - Weakness (2) Urinary retention: Status: Acute Category: Medical Code(s): R33.9 - Retention of urine, unspecified (3) Fall: Status: Acute Category: Medical Code(s): W19.XXXA - Unspecified fall, initial encounter (4) Anemia: Status: Acute Category: Medical Code(s): D64.9 - Anemia, unspecified (5) Acute hypoxemic respiratory failure: Status: Resolved Category: Medical Code(s): J96.01 - Acute respiratory failure with hypoxia (6) Acute hypokalemia: Status: Resolved Category: Medical Code(s): E87.6 - Hypokalemia (7) Diabetes mellitus, type 2: Status: Acute Qualifiers: Diabetes mellitus local intermodal truck driver insulin use: without local intermodal truck driver use Diabetes mellitus complication status: with other specified complication Qualified Code(s): E11.69 - Type 2 diabetes mellitus with other specified complication Category: Medical Code(s): E11.9 - Type 2 diabetes mellitus without complications (8) Candidal dermatitis: Status: Acute Category: Medical Code(s): B37.2 - Candidiasis of skin and nail (9) Hypertension: Status: Acute Category: Medical Code(s): I10 - Essential (primary) hypertension (10) Anxiety: Status: Chronic Category: Medical Code(s): F41.9 - Anxiety disorder, unspecified Plan 73-year-old female with PMHx of insulin-dependent diabetes, resident from [facility] brought in by EMS to the emergency department with concern for SOB. EMS reports that patient was found on 2 L nasal cannula saturating only in the 70s, they placed her on 4 L and she improved up to the 90s. She was tachycardic and round with rates in the 110s, blood pressure with systolic of 110. on arrival patient workup with leukocytosis 18,000 with neutrophilia. Her VBG is concerning for metabolic acidosis pH 7.21, CO2 low at 26, bicarb low at 10, lactate 10.4. Patient's potassium on chemistry 3.0, this was repleted with IV potassium. KRISTIE with creatinine 1.7 up from normal baseline. Patient given fluids for this. Initial troponin 0.04, repeat troponin 0.05. LFTs nonactionable. Lipase negative. Urinalysis without concern for UTI. CT of the chest abdomen and pelvis without acute concern for any abnormalities. CT head without intracranial hemorrhage or intracranial abnormality. Findings discussed with ED. Agreed for admission. Patient has shown improvement, kidney function is normalized. No signs of infection at this time. Currently awaiting guardianship. Chowdary removed yesterday, voiding independently. Will continue to monitor for replacement needed. Case management assisting with APS. Problems addressed as follows: Acute hypoxemic respiratory failure. Resolved Acute metabolic acidosis: likely dehydration, hypoxia; resolved KRISTIE: Resolved - Case being evaluated by APS. Awaiting guardianship and then subsequent placement. -Continue multivitamin with iron -Lab holiday today Urinary retention: -Tolerating removal of Chowdary so far. Voiding independently - Continue tamsulosin 0.4 mg twice daily. Anxiety: - Continue Ativan, decrease to 0.25 mg twice daily - Zoloft 100 mg daily, BuSpar 10 mg twice daily - Discontinue hydroxyzine due to risk for urinary retention Hx of NIDDM: A1c normal if not overly controlled at 4.9. Continue metformin 500 mg twice daily. No insulin at this time. Morning glucose 131. Heparin for dvt ppx protonix Full code PT and OT working with patient. Case management assisting with decision making capacity/potential guardianship for referral to rehab.
[2024-02-13] MEDS: METFORMIN 500MG TABLET 500 MG PO (07:29)
[2024-02-13 07:47] VITALS: BP 95/63; PULSE 85; RESP 16; TEMP 36.7; O2SAT 97
[2024-02-13] MEDS: TAMSULOSIN 0.4MG CAPSULE 0.4 MG PO (08:31)
[2024-02-13] MEDS: FUROSEMIDE 40 MG TABLET PO (08:32)
[2024-02-13] MEDS: METOPROLOL TARTRATE 25MG TABLET 12.5 MG PO (08:32)
[2024-02-13] MEDS: BUSPIRONE HCL 10 MG TABLET PO (08:32)
[2024-02-13] MEDS: ASPIRIN 81MG CHEWABLE TABLET 81 MG PO (08:32)
[2024-02-13] MEDS: LORazepam 0.5MG TABLET 0.25 MG PO (08:32)
[2024-02-13] MEDS: MAGNESIUM OXIDE 400MG TABLET 400 MG PO (08:32)
[2024-02-13] MEDS: SERTRALINE 100MG TABLET 100 MG PO (08:32)
[2024-02-13] MEDS: CALCIUM POLYCARBOPHIL 625MG TAB 1250 MG PO (08:33)
[2024-02-13] MEDS: NYSTATIN TOPICAL POWDER 30GM TP (08:33)
--- NOTE | 2024-02-13 13:04 | EXP.DC.SUM ---
General Admission date:: 01/09/24 Discharge date: 02/13/24 HPI HPI HPI: This is a 73-year-old female with PMHx of non insulin-dependent diabetes, resident from [facility] brought in by EMS to the emergency department with concern for SOB. Patient is poor historian. Data collected form EMS and ER documentation. Per EMS they was called for concerns of shortness of breath, they also report that the facility told them she was a little more confused than her baseline. Reportedly patient usually wears 2 L nasal cannula, she states she has been feeling short of breath for a couple days. She denies pain elsewhere. She developed motion sickness with the ambulance and has had 1 episode of emesis here but has not been having abdominal pain, nausea, vomiting, or diarrhea. She denies injuries. EMS reports that patient was found on 2 L nasal cannula saturating only in the 70s, they placed her on 4 L and she improved up to the 90s. She was tachycardic and round with rates in the 110s, blood pressure with systolic of 110. Admitted for treatment and management Hospital Course Hospital Course Hospital Course: 73-year-old female with PMHx of insulin-dependent diabetes, resident from [facility] brought in by EMS to the emergency department with concern for SOB. EMS reports that patient was found on 2 L nasal cannula saturating only in the 70s, they placed her on 4 L and she improved up to the 90s. She was tachycardic and round with rates in the 110s, blood pressure with systolic of 110. on arrival patient workup with leukocytosis 18,000 with neutrophilia. Her VBG is concerning for metabolic acidosis pH 7.21, CO2 low at 26, bicarb low at 10, lactate 10.4. Patient's potassium on chemistry 3.0, this was repleted with IV potassium. KRISTIE with creatinine 1.7 up from normal baseline. Patient given fluids for this. Initial troponin 0.04, repeat troponin 0.05. LFTs nonactionable. Lipase negative. Urinalysis without concern for UTI. CT of the chest abdomen and pelvis without acute concern for any abnormalities. CT head without intracranial hemorrhage or intracranial abnormality. Findings discussed with ED. Agreed for admission. Patient has shown improvement, kidney function is normalized. No signs of infection at this time. Currently awaiting guardianship. Patient has been waiting for guardianship for placement. During her stay at [facility], she showed improvement clinically with her mobility. Back to baseline level of function with using a walker to ambulate. Given her stability and improvement, will discharge back to her [facility] [facility] while she awaits guardianship. Chowdary was removed 2 days prior to discharge. Patient has been voiding independently. Stable to discharge home. Problems addressed as follows: Acute hypoxemic respiratory failure. Resolved Acute metabolic acidosis: likely dehydration, hypoxia; resolved KRISTIE: Resolved - Case being evaluated by APS. Awaiting guardianship. Plan was for subsequent placement initially during admission. Showed gradual improvement over the month that she was at the hospital. She is independently mobile using a walker and stable to discharge back to her [facility] [facility] while awaiting guardianship. May need placement in the near future but stable for [facility] [facility] setting at this time. Plan to continue her multivitamin with iron. Urinary retention: -Retention resolved, Chowdary able to be removed. Voiding independently. Continue tamsulosin 0.4 mg twice daily. Anxiety: - Continue Ativan, decrease to 0.25 mg twice daily - Zoloft 100 mg daily, BuSpar 10 mg twice daily - Discontinue hydroxyzine due to risk for urinary retention Hx of NIDDM: A1c normal if not overly controlled at 4.9. Continue metformin 500 mg twice daily. Recommend no insulin at discharge. Morning glucoses have been well-controlled. Total time spent on discharge 32 minutes in counseling, documentation, chart review, and direct care with patient. Exam Data for Last 24 hours Vital signs and Labs for Last 24 Hours: Temp Pulse Resp BP Pulse Ox O2 Del Method O2 Flow Rate 98.1 F 85 16 95/63 L 97 Room Air 3.5 02/13/24 07:47 02/13/24 07:47 02/13/24 07:47 02/13/24 07:47 02/13/24 07:47 02/13/24 13:00 01/11/24 00:00 I & O for Last 24 hours: Intake & Output 02/10/24 02/11/24 02/12/24 02/13/24 23:59 23:59 23:59 23:59 Intake Total 840 / 840 600 / 600 1440 / 1440 720 / 720 Output Total 1700 / 1700 700 / 700 150 / 150 250 / 250 Balance -860 / -860 -100 / -100 1290 / 1290 470 / 470 Weight 67.903 kg 67.177 kg 68.13 kg 69.082 kg Constitutional Constitutional: no acute distress, average body habitus and cooperative *Routine HEENT Exam Head: Present normocephalic Eye: Present EOMI and PERRL ENT: Present mucous membranes moist *Routine Neck Exam Neck: Present supple; Absent lymphadenopathy *Routine Respiratory Exam Respiratory: Present CTA bilaterally; Absent rhonchi, wheezes or crackles *Routine Cardiovascular Exam Cardiovascular: Present RRR *Routine Abdominal Exam Abdominal: Present soft and normoactive bowel sounds; Absent tenderness *Routine Rectal Exam Patient deferred: visual exam *Routine Exam Patient deferred: external exam *Routine Extremities Exam Extremities: Absent cyanosis, clubbing or edema *Routine Skin Exam Skin: Present intact and warm; Absent rash *Routine Neurological Exam Neurological: Present alert and moving all extremities; Absent altered mental status Comments: Resident, oriented to self, answers questions appropriately DS: Diagnosis Discharge Diagnosis (1) Weakness: Status: Acute Code(s): R53.1 - Weakness (2) Urinary retention: Status: Acute Code(s): R33.9 - Retention of urine, unspecified (3) Fall: Status: Acute Code(s): W19.XXXA - Unspecified fall, initial encounter (4) Anemia: Status: Acute Code(s): D64.9 - Anemia, unspecified (5) Acute hypoxemic respiratory failure: Status: Resolved Code(s): J96.01 - Acute respiratory failure with hypoxia (6) Acute hypokalemia: Status: Resolved Code(s): E87.6 - Hypokalemia (7) Diabetes mellitus, type 2: Status: Acute Code(s): E11.9 - Type 2 diabetes mellitus without complications Qualifiers: Diabetes mellitus complication status: with other specified complication Diabetes mellitus terminal press operator insulin use: without terminal press operator use Qualified Code(s): E11.69 - Type 2 diabetes mellitus with other specified complication (8) Candidal dermatitis: Status: Acute Code(s): B37.2 - Candidiasis of skin and nail (9) Hypertension: Status: Acute Code(s): I10 - Essential (primary) hypertension (10) Anxiety: Status: Chronic Code(s): F41.9 - Anxiety disorder, unspecified Meds Home Medications and Allergies Home Medications Medication Instructions Recorded Confirmed Type buspirone 10 mg tablet 10 mg PO BID 11/20/23 01/10/24 History famotidine 20 mg tablet 20 mg PO BID 11/20/23 01/10/24 History sertraline 100 mg tablet 100 mg PO DAILY 11/20/23 01/10/24 History acetaminophen 650 mg 650 mg PO TID 01/10/24 01/10/24 History tablet,extended release (Tylenol 8 Hour) aspirin 81 mg chewable tablet 81 mg PO DAILY 01/10/24 01/10/24 History ergocalciferol (vitamin D2) 1,250 1,250 mcg PO WEEKLY 01/10/24 01/10/24 History mcg (50,000 unit) capsule (Vitamin D2) nystatin 100,000 unit/gram topical 1 applic topical BID 01/10/24 01/10/24 History powder furosemide 40 mg tablet 40 mg PO DAILY 30 days #30 tabs 01/18/24 Rx lorazepam 0.5 mg tablet 0.25 mg (1/2 x 0.5 mg) PO BID 30 02/13/24 Rx days #30 tabs magnesium oxide 400 mg (241.3 mg 400 mg PO DAILY 30 days #30 tabs 02/13/24 Rx magnesium) tablet metformin 500 mg tablet 500 mg PO BIDWMEAL 30 days #60 tabs 02/13/24 Rx metoprolol tartrate 25 mg tablet 12.5 mg (1/2 x 25 mg) PO BID 30 02/13/24 Rx days #30 tabs vits [id number] fum 1 tab PO 1700 30 days #30 tabs 02/13/24 Rx 27 mg iron-folic acid 800 mcg tablet ( Vitamin) tamsulosin 0.4 mg capsule 0.4 mg PO BID 30 days #60 caps 02/13/24 Rx New Prescriptions to Start Prescriptions: Molina Garcia lorazepam Molina Conklin magnesium oxide Molina Conklin metformin Molina Conklin metoprolol tartrate Molina Conklin vit [id number] [ Vitamin] Molina Conklin tamsulosin Molina Conklin Allergies Allergy/AdvReac Type Severity Reaction Status Date / Time Penicillins Allergy Mild Verified 09/02/23 20:59 Discharge Plan Disposition Patient Disposition: Home, Self-Care Condition: Fair Discharge Order Discharge Orders: Discharge Order (Routine); Ordered 02/13/24 Ordered By: Molina Conklin Follow up Plan Follow up with: Honorio Teixeira APRN [Primary Care Provider] - 1 week Prescriptions/Medication Reconciliation: New furosemide 40 mg Tablet 40 mg PO DAILY 30 Days Qty: 30 0RF metformin 500 mg Tablet 500 mg PO BIDWMEAL 30 Days Qty: 60 0RF magnesium oxide 400 mg (241.3 mg magnesium) Tablet 400 mg PO DAILY 30 Days Qty: 30 0RF lorazepam 0.5 mg Tablet 0.25 mg PO BID 30 Days Qty: 30 0RF metoprolol tartrate 25 mg Tablet 12.5 mg PO BID 30 Days Qty: 30 0RF Vitamin 27 mg iron- 800 mcg Tablet 1 tab PO 1700 30 Days Qty: 30 0RF tamsulosin 0.4 mg Capsule 0.4 mg PO BID 30 Days Qty: 60 0RF Continued aspirin 81 mg Tablet,Chewable 81 mg PO DAILY ergocalciferol (vitamin D2) [Vitamin D2] 1,250 mcg (50,000 unit) Capsule 1,250 mcg PO WEEKLY Rx Instructions: on tuesdays nystatin 100,000 unit/gram Powder 1 applic TOPICAL BID acetaminophen [Tylenol 8 Hour] 650 mg Tablet Extended Release 650 mg PO TID sertraline 100 mg tablet 100 mg PO DAILY famotidine 20 mg tablet 20 mg PO BID buspirone 10 mg tablet 10 mg PO BID Discontinued hydroxyzine HCl 50 mg Tablet 50 mg PO HS docusate sodium 100 mg Capsule 200 mg PO HS acetaminophen [Tylenol] 325 mg Tablet 650 mg PO DAILYP PRN (Reason: Mild Pain (Scale Score 1-4)) lorazepam 0.5 mg Tablet 0.5 mg PO BID ibuprofen 200 mg Tablet 200 mg PO Q8HP PRN (Reason: Mild Pain (Scale Score 1-4)) insulin aspart U-100 [Novolog FlexPen U-100 Insulin] 100 unit/mL (3 mL) Insulin Pen 9 unit SQ PM Rx Instructions: GIVE WITH DINNER metformin 500 mg tablet 500 mg PO BIDWMEAL Other Ambulatory Orders: Home Medical Equipment (Routine) Location: None Selected Ordered By: Molina Conklin Problem Reconciliation Problems Reviewed?: Yes Patient Discharge Instructions ACTIVITY: Ambulate as tolerated DIET: continue same diet Patient Instructions: DI for Hypokalemia, DI for Urinary Retention in Women, DI for Sepsis -- Adult, Catheter-Associated Urinary Tract Infection Providers Primary Care Provider: Honorio Teixeira Admit Provider: Keith Garner Attending Provider: Keith Garner
[2024-02-13 16:00] VITALS: BP 98/50; PULSE 80; RESP 16; TEMP 36.6; O2SAT 96
== END 2024-02-13 16:12 | disposition home or self-care (01) | DRG 683 ==
LOC: ER 15:28 → 2ND 18:44
PROVIDERS: Emergency Medicine; Internal Medicine Adolescent Medicine; Admitting Provider Internal Medicine; Emergency Provider Emergency Medicine; PCP Nurse Practitioner Acute Care; Visit Provider Internal Medicine
DX: N17.9 Acute kidney failure, unspecified (principal); E87.20 Acidosis, unspecified; E87.6 Hypokalemia; R33.9 Retention of urine, unspecified; D64.9 Anemia, unspecified; B37.2 Candidiasis of skin and nail; E11.9 Type 2 diabetes mellitus without complications; E86.0 Dehydration; F41.9 Anxiety disorder, unspecified; Z79.84 Long term (current) use of oral hypoglycemic drugs
CPT/HCPCS: 36415; 70450; 71045; 71275; 74018; 74177; 80048; 80053; 80202; 81001; 82607; 82728; 82803; 82962; 83036; 83540; 83550; 83605; 83690; 83735; 84484; 85007; 85025; 87040; 87045; 87086; 93005; 94761; 97110; 97116; 97162; 97165; 97530; 97535; 99291; J2405; J3370; J3475; Q9967

== ENCOUNTER 2024-02-24 11:49 | Observation (INO) | payer MEDICARE, OTHER, SELFPAY ==
[2024-02-24] VITALS (11 sets, daily range): BP systolic 97–123; BP diastolic 59–85; PULSE 72–97; RESP 16–24; TEMP 36.6; O2SAT 96–100; BMI 23.0
--- NOTE | 2024-02-24 11:54 | ED_ITS ---
Discharge Plan Disposition Patient Disposition: Admitted Discharge ED Provider: Osman Manley General Adult HPI General Chief complaint: Altered Mental Status Stated complaint: Decreased appetite/unable to urinate Time Seen by Provider: 02/24/24 11:53 History of Present Illness HPI narrative: The patient presents with reported decreased PO intake, and has reportedly urinated in approximately a day and a half. She expresses a nonspecific anticipation of pain but cannot identify a source or reason for this feeling. She denies experiencing shortness of breath, nausea, abdominal pain, blurry or double vision, and headache. Please note that above description of symptoms, in this electronic medical record under categorization of recalled from ER triage doctor by RN are reflective of an initial nursing assessment, however, is not reflective of my full history and physical exam that was personally taken and clarified. Consequentially, this preceding description of symptoms, which may include the patient's categorized chief complaint in the EMR, do not reflect my personal clinical impression, and the ultimate description of history of present illness and patient stated complaints should be deferred to this section of the note. Unless stated otherwise or congruent with this section of the note, additional signs, symptoms, or incongruence should be interpreted as inaccurate with my clinical impression. Related Data Home Medications Medication Instructions Recorded Confirmed buspirone 10 mg tablet 10 mg PO BID 11/20/23 02/25/24 famotidine 20 mg tablet 20 mg PO BID 11/20/23 02/25/24 sertraline 100 mg tablet 100 mg PO DAILY 11/20/23 02/25/24 acetaminophen 650 mg 650 mg PO TID 01/10/24 02/25/24 tablet,extended release (Tylenol 8 Hour) aspirin 81 mg chewable tablet 81 mg PO DAILY 01/10/24 02/25/24 ergocalciferol (vitamin D2) 1,250 1,250 mcg PO TU 01/10/24 02/25/24 mcg (50,000 unit) capsule (Vitamin D2) nystatin 100,000 unit/gram topical 1 applic topical BID 01/10/24 02/25/24 powder metoprolol tartrate 25 mg tablet 25 mg PO BID 02/24/24 02/25/24 vits no.130-ferrous fum 1 tab PO DAILY 02/24/24 02/25/24 27 mg iron-folic acid 800 mcg tablet ( Vitamin) Previous Rx's Medication Instructions Recorded furosemide 40 mg tablet 40 mg PO DAILY 30 days #30 tabs 01/18/24 lorazepam 0.5 mg tablet 0.25 mg (1/2 x 0.5 mg) PO BID 30 02/13/24 days #30 tabs magnesium oxide 400 mg (241.3 mg 400 mg PO DAILY 30 days #30 tabs 02/13/24 magnesium) tablet metformin 500 mg tablet 500 mg PO BIDWMEAL 30 days #60 tabs 02/13/24 tamsulosin 0.4 mg capsule 0.4 mg PO BID 30 days #60 caps 02/13/24 Allergies Allergy/AdvReac Type Severity Reaction Status Date / Time Penicillins Allergy Mild Verified 02/24/24 12:58 [facility] Disclaimer: The information contained in this section may have been updated after the patient was seen, as this information can be updated by other users. Medical History Diabetes mellitus, type 2 Social History Smoking Status: Never smoker alcohol intake: never current occupational status: other Travel in the last 8 weeks: None ROS Obtained: Yes other As per HPI Physical Exam General General appearance: alert and in no apparent distress Head Head exam: atraumatic and normocephalic Eye Eye exam: Present normal appearance Neck Neck exam: Present normal inspection Chest Chest inspection: Present normal inspection and symmetric chest wall rise Respiratory Respiratory exam: Present normal lung sounds bilaterally; Absent respiratory distress Cardiovascular Cardiovascular exam: Present regular rate and normal rhythm Abdominal Exam Abdominal exam: Present soft Neurological Exam Neurological exam: Present alert and CN II-XII intact Psychiatric Psychiatric exam: Present anxious Skin Skin exam: Present warm and dry Other Other exam information: AAO x1 Medical Decision Making Medical Records Medical records reviewed: Yes I reviewed the patient's medical records. Dax Inquiry Pt receiving controlled substance: No Vital Signs: 02/24/24 12:24 02/24/24 12:37 02/24/24 13:00 Temperature 97.8 F Temperature Source Oral Pulse Rate 72 82 Pulse Rate [Left Radial] 86 Respiratory Rate 24 Blood Pressure 114/74 110/85 Blood Pressure [Right Arm] 123/77 Blood Pressure Mean Blood Pressure Mean [Right Arm] 92 02 Sat by Pulse Oximetry 99 99 96 Oxygen Delivery Method Room Air 02/24/24 13:16 02/24/24 14:00 02/24/24 14:30 Temperature Temperature Source Pulse Rate 80 Pulse Rate [Left Radial] Respiratory Rate Blood Pressure 111/69 99/75 L 111/72 Blood Pressure [Right Arm] Blood Pressure Mean 83 77 Blood Pressure Mean [Right Arm] 02 Sat by Pulse Oximetry 96 Oxygen Delivery Method 02/24/24 15:01 02/24/24 15:36 Temperature 97.8 F Temperature Source Pulse Rate 80 Pulse Rate [Left Radial] Respiratory Rate 16 Blood Pressure 97/79 L 116/59 L Blood Pressure [Right Arm] Blood Pressure Mean 84 Blood Pressure Mean [Right Arm] 02 Sat by Pulse Oximetry Oxygen Delivery Method Room Air Lab Data Lab Results 02/24/24 12:07: WBC 7.5, RBC 4.06 L, Hgb 12.5, Hct 39.3, MCV 96.8, MCH 30.8, MCHC 31.8, RDW 15.4, Plt Count 371, MPV 7.8, Neut % (Auto) 50.2, Lymph % (Auto) 41.9, Morris % (Auto) 5.5, Eos % (Auto) 1.2, Baso % (Auto) 1.1, Neut # (Auto) 3.8, Lymph # (Auto) 3.2, Morris # (Auto) 0.4, Eos # (Auto) 0.1, Baso # (Auto) 0.1, S odium 147 H, Potassium 3.3 L, Chloride 107, Carbon Dioxide 23, Anion Gap 20.3 H, BUN 38 H, Creatinine 1.10 H, Estimated Creat Clear 42, Estimated GFR 49 L, Est GFR ( Amer) 59, Glucose 191 H, Calcium 10.4 H, Magnesium 1.7, Total Bilirubin 0.4, AST 36, ALT 36, Alkaline Phosphatase 69, Total Creatine Kinase < 20 L, Troponin I < 0.01, Total Protein 7.6 D, Albumin 4.4, Globulin 3.2, Albumin/Globulin Ratio 1.4, Lipase 170, TSH 0.31 L, Free T4 1.79, Salicylates < 1.0 L, Acetaminophen < 10 L, Plasma/Serum Alcohol < 10, Acetone Level None detected 02/24/24 12:22: Urine Color Yellow, Urine Appearance Clear, Urine pH 6.0, Ur Specific [place] 1.020, Urine Protein Trace, Urine Glucose (UA) Negative, Urine Ketones Negative, Urine Blood Trace-i, Urine Nitrate Positive, Urine Bilirubin Negative, Urine Urobilinogen 0.2, Ur Leukocyte Esterase 2+ A, Urine RBC 3-5, Urine WBC 20-50, Ur Squamous Epith Cells None, Urine Bacteria 1+, Urine Yeast Occasional, Urine Opiates Screen Negative, Urine Methadone Screen Negative, Ur Barbituates Screen Negative, Ur Phencyclidine Scrn Negative, Ur Amphetamines Screen Negative, U Benzodiazepines Scrn Negative, Urine Cocaine Screen Negative, U Marijuana (THC) Screen Negative 02/24/24 12:23: VBG pH 7.50 H, VBG pCO2 29.4 L, VBG pO2 41.7 H, VBG HCO3 22.5 L, VBG Total CO2 23.4, VBG O2 Saturation 82.8 H, VBG Base Excess -0.6, VBG Lactic Acid 6.8 H 02/24/24 15:34: Troponin I < 0.01 02/26/24 05:33 02/26/24 05:33 Orders (Tests/Meds): ED MEDICATIONS Generic Name Dose Route Start Last Admin Trade Name Daljti PRN Reason Stop Dose Admin Aspirin 81 mg 02/25/24 09:00 02/26/24 08:23 Aspirin 81mg Chewable Tablet PO 03/26/24 08:59 81 mg DAILY CASPER Administration Buspirone HCl 10 mg 02/24/24 21:00 02/26/24 08:23 Buspirone Hcl 10 Mg Tablet PO 03/25/24 20:59 10 mg BID CASPER Administration Enoxaparin Sodium 40 mg 02/25/24 09:00 02/26/24 08:23 Enoxaparin 40mg/0.4ml Syringe SQ 03/26/24 08:59 40 mg DAILY CASPER Administration Ergocalciferol 50,000 unit 02/25/24 09:00 02/25/24 09:33 Ergocalciferol 50,000 Units (1.25mg) Capsule PO 03/26/24 08:59 50,000 unit WEEKLY CASPER Administration Famotidine 20 mg 02/24/24 21:00 02/26/24 08:23 Famotidine 20mg Tablet PO 03/25/24 20:59 20 mg BID CASPER Administration Furosemide 40 mg 02/25/24 09:00 02/26/24 08:23 Furosemide 40 Mg Tablet PO 03/26/24 08:59 40 mg DAILY CASPER Administration Levofloxacin 750 mg 02/26/24 11:00 Levofloxacin 750 Mg Tablet PO 03/07/24 10:59 1100 CASPER Lorazepam 0.25 mg 02/24/24 21:00 02/26/24 08:25 Lorazepam 0.5mg Tablet PO 03/25/24 20:59 0.25 mg BID CASPER Administration Magnesium Oxide 400 mg 02/25/24 09:00 02/26/24 08:23 Magnesium Oxide 400mg Tablet PO 03/26/24 08:59 400 mg DAILY CASPER Administration Metformin HCl 500 mg 02/26/24 07:00 02/26/24 06:13 Metformin 500mg Tablet PO 03/27/24 06:59 500 mg DAILYDM CASPER Administration Metoprolol Tartrate 25 mg 02/24/24 21:00 02/26/24 08:23 Metoprolol Tartrate 25mg Tablet PO 03/25/24 20:59 25 mg BID CASPER Administration Nystatin 0 gm 02/24/24 21:00 02/26/24 08:24 Nystatin Topical Powder 30gm TP 03/25/24 20:59 1 applic BID CASPER Administration Potassium Chloride 20 meq 02/25/24 09:00 02/26/24 08:24 Potassium Chloride 20meq Tab PO 02/26/24 21:01 20 meq TID CASPER Administration Multivit/Folic Acid/Iron 1 each 02/25/24 17:00 02/25/24 17:32 Multivitamin W/Iron PO 03/26/24 16:59 1 each 1700 CASPER Administration Sertraline HCl 100 mg 02/25/24 09:00 02/26/24 08:23 Sertraline 100mg Tablet PO 03/26/24 08:59 100 mg DAILY CASPER Administration Tamsulosin HCl 0.4 mg 02/24/24 21:00 02/26/24 08:23 Tamsulosin 0.4mg Capsule PO 03/25/24 20:59 0.4 mg BID CASPER Administration Discontinued Medications Generic Name Dose Route Start Last Admin Trade Name Freq PRN Reason Stop Dose Admin Lactated Ringer's 1,000 mls @ 999 mls/hr 02/24/24 12:09 02/24/24 12:24 Lactated Ringer's 1000 Ml Bag IV 02/24/24 13:09 999 mls/hr .Q1H1M ONE Administration Ceftriaxone Sodium 1 gm/ 50 mls @ 100 mls/hr 02/24/24 14:15 02/24/24 14:28 Sodium Chloride IV 03/05/24 14:14 100 mls/hr Q24H CASPER Administration Azithromycin 500 mg/ Sodium 250 mls @ 250 mls/hr 02/24/24 14:15 02/24/24 16:10 Chloride IV 03/05/24 14:14 250 mls/hr Q24H CASPER Administration Levofloxacin/Dextrose 750 mg in 150 mls @ 100 mls/hr 02/24/24 20:00 02/25/24 20:13 Levofloxacin 750mg/150ml Premix IV 03/05/24 19:59 100 mls/hr Q24H CASPER Administration Magnesium Sulfate 2 gm in 50 mls @ 50 mls/hr 02/25/24 08:00 02/25/24 09:32 Magnesium Sulfate 2gm/50ml Premix IV 02/25/24 08:59 50 mls/hr ONCE ONE Administration Lorazepam 0.25 mg 02/24/24 17:21 02/24/24 18:06 Lorazepam 0.5mg Tablet PO 02/24/24 17:22 0.25 mg ONCE ONE Administration Sodium Chloride 10 ml 02/25/24 07:30 Sodium Chloride 0.9% 10ml Flush Syringe IV 03/26/24 07:29 NEEDED PRN Maintain IV Site ORDERS Category Date Time Status CT head/brain wo con Stat Cat Scan 02/24/24 12:11 Completed XR chest portable Stat Exams 02/24/24 12:11 Completed Acetaminophen Stat Lab 02/24/24 12:07 Completed Acetone, Serum (Rapid) Stat Lab 02/24/24 12:07 Completed CBC w/Auto Diff [Complete Blood Count Auto Diff] Stat Lab 02/24/24 12:07 Completed CK [Creatine Kinase] Stat Lab 02/24/24 12:07 Completed CMP [Comprehensive Metabolic Panel] Stat Lab 02/24/24 12:07 Completed Complete Blood Count Auto Diff AMLAB Lab 02/25/24 05:36 Completed Comprehensive Metabolic Panel AMLAB Lab 02/25/24 05:36 Completed Drug Screen,Urine Stat Lab 02/24/24 12:22 Completed Ethanol [Ethyl Alcohol] Stat Lab 02/24/24 12:07 Completed Free T4 (Free Thyroxine) Stat Lab 02/24/24 12:07 Completed Lipase Stat Lab 02/24/24 12:07 Completed MAG [Magnesium] Stat Lab 02/24/24 12:07 Completed Magnesium AMLAB Lab 02/25/24 05:36 Completed Osmolality Stat Lab 02/24/24 12:07 Received Salicylate Stat Lab 02/24/24 12:07 Completed TSH [Thyroid Stimulating Hormone] Stat Lab 02/24/24 12:07 Completed Troponin I Q3H Lab 02/24/24 12:07 Completed Troponin I Q3H Lab 02/24/24 15:34 Completed Urinalysis and Microscopic Stat Lab 02/24/24 12:22 Completed Urine Culture Stat Micro 02/24/24 12:22 Results VBG [Venous Blood Gas] Stat RT 02/24/24 12:23 Completed Medical Decision Narrative: Patient with history and exam per above presenting for evaluation of AMS Diagnoses considered include delerium, ICH, rachel, infectious process, urinary retention among others ED workup and treatment included: ED MEDICATIONS Generic Name Dose Route Start Last Admin Trade Name Freq PRN Reason Stop Dose Admin Aspirin 81 mg 02/25/24 09:00 02/26/24 08:23 Aspirin 81mg Chewable Tablet PO 03/26/24 08:59 81 mg DAILY CASPER Administration Buspirone HCl 10 mg 02/24/24 21:00 02/26/24 08:23 Buspirone Hcl 10 Mg Tablet PO 03/25/24 20:59 10 mg BID CASPER Administration Enoxaparin Sodium 40 mg 02/25/24 09:00 02/26/24 08:23 Enoxaparin 40mg/0.4ml Syringe SQ 03/26/24 08:59 40 mg DAILY CASPER Administration Ergocalciferol 50,000 unit 02/25/24 09:00 02/25/24 09:33 Ergocalciferol 50,000 Units (1.25mg) Capsule PO 03/26/24 08:59 50,000 unit WEEKLY CASPER Administration Famotidine 20 mg 02/24/24 21:00 02/26/24 08:23 Famotidine 20mg Tablet PO 03/25/24 20:59 20 mg BID CASPER Administration Furosemide 40 mg 02/25/24 09:00 02/26/24 08:23 Furosemide 40 Mg Tablet PO 03/26/24 08:59 40 mg DAILY CASPER Administration Levofloxacin 750 mg 02/26/24 11:00 Levofloxacin 750 Mg Tablet PO 03/07/24 10:59 1100 CASPER Lorazepam 0.25 mg 02/24/24 21:00 02/26/24 08:25 Lorazepam 0.5mg Tablet PO 03/25/24 20:59 0.25 mg BID CASPER Administration Magnesium Oxide 400 mg 02/25/24 09:00 02/26/24 08:23 Magnesium Oxide 400mg Tablet PO 03/26/24 08:59 400 mg DAILY CASPER Administration Metformin HCl 500 mg 02/26/24 07:00 02/26/24 06:13 Metformin 500mg Tablet PO 03/27/24 06:59 500 mg DAILYDM CASPER Administration Metoprolol Tartrate 25 mg 02/24/24 21:00 02/26/24 08:23 Metoprolol Tartrate 25mg Tablet PO 03/25/24 20:59 25 mg BID CASPER Administration Nystatin 0 gm 02/24/24 21:00 02/26/24 08:24 Nystatin Topical Powder 30gm TP 03/25/24 20:59 1 applic BID CASPER Administration Potassium Chloride 20 meq 02/25/24 09:00 02/26/24 08:24 Potassium Chloride 20meq Tab PO 02/26/24 21:01 20 meq TID CASPER Administration Multivit/Folic Acid/Iron 1 each 02/25/24 17:00 02/25/24 17:32 Multivitamin W/Iron PO 03/26/24 16:59 1 each 1700 CASPER Administration Sertraline HCl 100 mg 02/25/24 09:00 02/26/24 08:23 Sertraline 100mg Tablet PO 03/26/24 08:59 100 mg DAILY CASPER Administration Tamsulosin HCl 0.4 mg 02/24/24 21:00 02/26/24 08:23 Tamsulosin 0.4mg Capsule PO 03/25/24 20:59 0.4 mg BID CASPER Administration Discontinued Medications Generic Name Dose Route Start Last Admin Trade Name Freq PRN Reason Stop Dose Admin Lactated Ringer's 1,000 mls @ 999 mls/hr 02/24/24 12:09 02/24/24 12:24 Lactated Ringer's 1000 Ml Bag IV 02/24/24 13:09 999 mls/hr .Q1H1M ONE Administration Ceftriaxone Sodium 1 gm/ 50 mls @ 100 mls/hr 02/24/24 14:15 02/24/24 14:28 Sodium Chloride IV 03/05/24 14:14 100 mls/hr Q24H CASPER Administration Azithromycin 500 mg/ Sodium 250 mls @ 250 mls/hr 02/24/24 14:15 02/24/24 16:10 Chloride IV 03/05/24 14:14 250 mls/hr Q24H CASPER Administration Levofloxacin/Dextrose 750 mg in 150 mls @ 100 mls/hr 02/24/24 20:00 02/25/24 20:13 Levofloxacin 750mg/150ml Premix IV 03/05/24 19:59 100 mls/hr Q24H CASPER Administration Magnesium Sulfate 2 gm in 50 mls @ 50 mls/hr 02/25/24 08:00 02/25/24 09:32 Magnesium Sulfate 2gm/50ml Premix IV 02/25/24 08:59 50 mls/hr ONCE ONE Administration Lorazepam 0.25 mg 02/24/24 17:21 02/24/24 18:06 Lorazepam 0.5mg Tablet PO 02/24/24 17:22 0.25 mg ONCE ONE Administration Sodium Chloride 10 ml 02/25/24 07:30 Sodium Chloride 0.9% 10ml Flush Syringe IV 03/26/24 07:29 NEEDED PRN Maintain IV Site ORDERS Category Date Time Status CT head/brain wo con Stat Cat Scan 02/24/24 12:11 Completed XR chest portable Stat Exams 02/24/24 12:11 Completed Acetaminophen Stat Lab 02/24/24 12:07 Completed Acetone, Serum (Rapid) Stat Lab 02/24/24 12:07 Completed CBC w/Auto Diff [Complete Blood Count Auto Diff] Stat Lab 02/24/24 12:07 Completed CK [Creatine Kinase] Stat Lab 02/24/24 12:07 Completed CMP [Comprehensive Metabolic Panel] Stat Lab 02/24/24 12:07 Completed Complete Blood Count Auto Diff AMLAB Lab 02/25/24 05:36 Completed Comprehensive Metabolic Panel AMLAB Lab 02/25/24 05:36 Completed Drug Screen,Urine Stat Lab 02/24/24 12:22 Completed Ethanol [Ethyl Alcohol] Stat Lab 02/24/24 12:07 Completed Free T4 (Free Thyroxine) Stat Lab 02/24/24 12:07 Completed Lipase Stat Lab 02/24/24 12:07 Completed MAG [Magnesium] Stat Lab 02/24/24 12:07 Completed Magnesium AMLAB Lab 02/25/24 05:36 Completed Osmolality Stat Lab 02/24/24 12:07 Received Salicylate Stat Lab 02/24/24 12:07 Completed TSH [Thyroid Stimulating Hormone] Stat Lab 02/24/24 12:07 Completed Troponin I Q3H Lab 02/24/24 12:07 Completed Troponin I Q3H Lab 02/24/24 15:34 Completed Urinalysis and Microscopic Stat Lab 02/24/24 12:22 Completed Urine Culture Stat Micro 02/24/24 12:22 Results VBG [Venous Blood Gas] Stat RT 02/24/24 12:23 Completed Labs were independently interpreted by me, significant for rachel, UA consistent with infection Imaging was independently visualized and interpreted by me, significant for no acute findings. Please refer to radiology report for full details. Patient will benefit from admission for further workup and treatment. She will be admitted to the hospitalist service. Critical Care Critical Care Time Critical Care Time: No
--- NOTE | 2024-02-24 12:07 | PC.NURSE ---
Dr. Manley at BS for pt eval
--- NOTE | 2024-02-24 12:11 | CT_ITS ---
FINAL REPORT CLINICAL HISTORY: ams, no focal deficit COMPARISON: 01/09/2024 FINDINGS: Axial images of the head were obtained without contrast. Coronal reformatted images were also obtained. This study was performed with techniques to keep radiation doses as low as reasonably achievable (ALARA). Individualized dose reduction techniques using automated exposure control or adjustment of mA and/or kV according to the patient's size were employed. Motion artifact is identified on many of the images. There is generalized age-appropriate atrophy. Periventricular low-attenuation areas are seen consistent with mild chronic ischemic changes. There is no evidence of intracranial hemorrhage or mass. There is no evidence of acute infarct. There is no evidence of shift of the midline structures. No skull abnormality is seen on the bone window images. There is total opacification of the left maxillary sinus. IMPRESSION: Atrophy and mild periventricular chronic ischemic changes. No acute intracranial abnormality identified. Reviewed, Interpreted and Dictated by Reginaldo Morillo III, MD Transcribed by Romelia Frank Authenticated and [facility]
--- NOTE | 2024-02-24 12:11 | XR_ITS ---
FINAL REPORT CLINICAL HISTORY: soa COMPARISON: 01/09/2024 FINDINGS: SINGLE-VIEW CHEST The heart size is normal. The mediastinum is normal. There is worsening left base atelectasis or pneumonia. There is no pneumothorax. IMPRESSION: Worsening atelectasis or pneumonia. Reviewed, Interpreted and Dictated by Reginaldo Morillo III, MD Transcribed by Romelia Frank Authenticated and [facility]
--- NOTE | 2024-02-24 12:20 | ECG_ITS ---
APPROVED REPORT Exam: Resting ECG HR:80 bpm ECG Measurements Heart Rate 80 AXES ND 134 P 36 QRSd 69 QRS 23 QT 374 T 30 QTc [address] DEVIATION AND MODERATE T-WAVE ABNORMALITY, CONSIDER ANTERIOR ISCHEMIA [-0.1+ mV T-WAVE IN V3/V4] ABNORMAL ECG Electronically signed by : NAIDA VEGA, 02/25/2024 21:48:34
--- NOTE | 2024-02-24 12:22 | PC.NURSE ---
Hedy from RT called VBG results. Repeated and confirmed. Dr. Manley notified of results.
[2024-02-24] MEDS: LACTATED RINGERS 1000ML 1,000 ML 999 ML IV (12:24)
--- NOTE | 2024-02-24 12:25 | PC.NURSE ---
Pt gone to RAD via stretcher
[2024-02-24 12:28] LABS: Microscopic, Urine URINE MICROSCOPIC (MICROSCOPIC)
[2024-02-24 12:29] LABS: VBG Base Excess -0.6 mmol/L (-2.4-2.3); VBG HCO3 22.5 mmol/L (23-30); VBG Oxygen Saturation 82.8 % (50-70); VBG PCO2 29.4 mmol/L (35-51); VBG PO2 41.7 mmol/L (28-40); VBG Total CO2 23.4 mmol/L (23-27)
[2024-02-24 12:33] LABS: Basophils # 0.1 K/mm3 (0-0.2); Basophils % 1.1 % (0.1-2.0); Eosinophils # 0.1 K/mm3 (0.0-0.4); Eosinophils % 1.2 % (0.1-12.0); Hematocrit 39.3 % (37.0-47.0); Hemoglobin 12.5 g/dL (12.2-16.2); Lymphocytes # 3.2 K/mm3 (0.7-4.5); Lymphocytes % 41.9 % (10-50); Mean Corpuscular HGB Conc 31.8 g/dL (31.8-35.4); Mean Corpuscular Hemoglobin 30.8 pg (27.0-31.2); Mean Corpuscular Volume 96.8 fl (81-99); Mean Platelet Volume 7.8 fl (7.4-10.4); Monocytes # 0.4 K/mm3 (0.1-1.0); Monocytes % 5.5 % (1.7-9.3); Neutrophils # 3.8 K/mm3 (1.8-7.8); Neutrophils % 50.2 % (37.0-80.0); Platelet Count 371 K/mm3 (142-424); Red Blood Count 4.06 M/mm3 (4.20-5.40); Red Cell Distribution Width 15.4 % (11.5-17.5); White Blood Count 7.5 K/mm3 (4.8-10.8)
--- NOTE | 2024-02-24 12:34 | PC.NURSE ---
Hedy from RT called VBG results. Repeated and confirmed. Dr. Manley notified of results.
[2024-02-24 12:36] LABS: Lactate Venous 6.8 mmol/L (0.4-2.0)
--- NOTE | 2024-02-24 12:36 | PC.NURSE ---
Pt returned to room from RAD
[2024-02-24 12:40] LABS: Appearance,Urine CLEAR (Clear); Bilirubin,Urine Negative (Negative); Blood, Urine TRACE-I (Negative); Color,Urine YELLOW (Yellow); Glucose,Urine (UA) Negative (Negative); Ketones,Urine Negative (Negative); Leukocyte Esterase,Urine 2+ (Negative); Nitrate,Urine POSITIVE (Negative); Protein,Urine TRACE (Negative); Urobilinogen,Urine 0.2 EU/dl (0.2)
[2024-02-24 12:40] LABS: Alanine Aminotransferase 36 U/L (12-78); Albumin Level 4.4 g/dl (3.5-5.0); Albumin/Globulin Ratio 1.4 (1.1-1.8); Alkaline Phosphatase 69 U/L (38-126); Anion Gap 20.3 mEq/L (5-15); Aspartate Amino Transferase 36 U/L (14-36); Bilirubin,Total 0.4 mg/dl (0.2-1.3); Blood Urea Nitrogen 38 mg/dl (7-17); Calcium 10.4 mg/dl (8.4-10.2); Carbon Dioxide 23 mmol/L (22.0-30.0); Chloride 107 mmol/L (98-107); Creatinine Clearance Estimated 42 mL/min (50-200); Estimated Glomerular Filt Rate 49 ml/min (>60); GFR (African American) 59 ML/MIN (>60); Globulin 3.2 g/dL (1.3-3.2); Glucose 191 mg/dl (74-100); Potassium 3.3 mmoL/L (3.5-5.1); Sodium 147 mmol/L (136-145); Total Protein,Serum 7.6 g/dl (6.3-8.2)
[2024-02-24 12:47] LABS: Creatine Kinase < 20 U/L (30-135); Lipase 170 U/L (23-300); Magnesium 1.7 mg/dl (1.6-2.3)
[2024-02-24 12:54] LABS: Benzodiazepines Screen,Urine Negative ng/ml (<200)
[2024-02-24 12:55] LABS: Amphetamine/Metha Screen,Urine Negative ng/ml (<1000); WBC,Urine 20-50 #/hpf (0-3)
[2024-02-24 12:55] LABS: Acetaminophen < 10 ug/ml (10-30); Salicylate < 1.0 mg/dL (2.0-20.0)
[2024-02-24 12:56] LABS: Bacteria,Urine 1+ /lpf; Barbiturates Screen,Urine Negative ng/ml (<200); Methadone Screen,Urine Negative ng/ml (<300); Yeast,Urine Occasional /lpf
[2024-02-24 12:57] LABS: Cannabinoid Screen,Urine Negative ng/ml (<50); Cocaine Screen,Urine Negative ng/ml (<300)
[2024-02-24 12:58] LABS: Opiate Screen,Urine Negative ng/ml (<300)
[2024-02-24 12:59] LABS: Phencyclidine Screen,Urine Negative ng/ml (<25)
[2024-02-24 13:03] LABS: Acetone, Serum (Rapid) None Detected (None Detect); Troponin I < 0.01 ng/ml (0.00-0.034)
[2024-02-24 13:08] LABS: Ethyl Alcohol < 10 mg/dl (0-10)
[2024-02-24 13:11] LABS: Thyroid Stimulating Hormone 0.31 uIU/mL (0.465-4.68)
--- NOTE | 2024-02-24 13:12 | PC.NURSE ---
radiology states images are locked and being read by the radiologist at this time
--- NOTE | 2024-02-24 13:17 | PC.NURSE ---
meal tray ordered for pt
[2024-02-24 13:26] LABS: Free T4 (Free Thyroxine) 1.79 ng/dl (0.78-2.19)
--- NOTE | 2024-02-24 13:50 | PC.NURSE ---
pt had 630ML on her bladder on bladder scan. requests indwelling soto catheter
--- NOTE | 2024-02-24 14:15 | PC.NURSE ---
Dr. Manley speaking with Dr. Conklin about possible admission
[2024-02-24] MEDS: CEFTRIAXONE 1 GM 1 GM in 0.9 % SODIUM CHLORIDE 50 ML IV (14:28)
--- NOTE | 2024-02-24 14:56 | PC.NURSE ---
Dr. Conklin at BS for pt eval
--- NOTE | 2024-02-24 15:11 | PC.NURSE ---
hs aware of admission for uti, rachel
--- NOTE | 2024-02-24 15:28 | PC.NURSE ---
report called to [facility]
--- NOTE | 2024-02-24 15:37 | EXP.HP ---
History of Present Illness *Admission Date: 02/24/24 *Reason for visit:: decreased PO intake and decreasd UOP *History of present illness: Ms. Montes is a pleasant 73-year-old female oriented to self only. [facility]. Was recently admitted for a prolonged course due to debility and need for guardianship and placement. During her course she rehab and was able to transition back to her personal-long-term due to independent voiding, removal of catheter, and ability to ambulate with walker. She presented to the ER today however due to decreased p.o. intake and decreased urine output. Initial presentation to the ER with workup including urinalysis and basic labs. Patient found to have urinary retention with almost a liter of output with placement of Chowdary. Urine concerning for UTI. Labs showing KRISTIE. Given presence of catheter, patient unable to return back to her personal-long-term. She appears anxious at this time and is tremulous on exam. At baseline mentation. Medicine consulted for admission. On my evaluation, patient is afebrile and stable on room air. At baseline mentation. Knows my face but does not know my name. Knows who she is but is unsure where she is or why. Tolerating p.o. intake. Chowdary draining luann urine. Denies chest pain or shortness of breath. No nausea or vomiting. [facility] Disclaimer: The information contained in this section may have been updated after the patient was seen, as this information can be updated by other users. Medical History Diabetes mellitus, type 2 Social History Smoking Status: Never smoker alcohol intake: never current occupational status: other Travel in the last 8 weeks: None Review of Systems Review of Systems Review of systems (narrative): 14 point review of systems performed, pertinent positives and negatives as per [facility] Meds Home Medications and Allergies Home Medications Medication Instructions Recorded Confirmed Type buspirone 10 mg tablet 10 mg PO BID 11/20/23 02/24/24 History famotidine 20 mg tablet 20 mg PO BID 11/20/23 02/24/24 History sertraline 100 mg tablet 100 mg PO DAILY 11/20/23 02/24/24 History acetaminophen 650 mg 650 mg PO TID 01/10/24 02/24/24 History tablet,extended release (Tylenol 8 Hour) aspirin 81 mg chewable tablet 81 mg PO DAILY 01/10/24 02/24/24 History ergocalciferol (vitamin D2) 1,250 1,250 mcg PO WEEKLY 01/10/24 02/24/24 History mcg (50,000 unit) capsule (Vitamin D2) nystatin 100,000 unit/gram topical 1 applic topical BID 01/10/24 02/24/24 History powder furosemide 40 mg tablet 40 mg PO DAILY 30 days #30 tabs 01/18/24 02/24/24 Rx lorazepam 0.5 mg tablet 0.25 mg (1/2 x 0.5 mg) PO BID 30 02/13/24 02/24/24 Rx days #30 tabs magnesium oxide 400 mg (241.3 mg 400 mg PO DAILY 30 days #30 tabs 02/13/24 02/24/24 Rx magnesium) tablet metformin 500 mg tablet 500 mg PO BIDWMEAL 30 days #60 tabs 02/13/24 02/24/24 Rx tamsulosin 0.4 mg capsule 0.4 mg PO BID 30 days #60 caps 02/13/24 02/24/24 Rx metoprolol tartrate 25 mg tablet 25 mg PO BID 02/24/24 02/24/24 History vits no.130-ferrous fum 1 tab PO DAILY 02/24/24 02/24/24 History 27 mg iron-folic acid 800 mcg tablet ( Vitamin) New Prescriptions to Start Prescriptions: Allergies Allergy/AdvReac Type Severity Reaction Status Date / Time Penicillins Allergy Mild Verified 02/24/24 12:58 Exam Data for Last 24 hours Vital signs and Labs for Last 24 Hours: Temp Pulse Resp BP Pulse Ox O2 Del Method 97.8 F 80 24 97/79 L 96 Room Air 02/24/24 12:24 02/24/24 13:16 02/24/24 12:24 02/24/24 15:01 02/24/24 13:16 02/24/24 12:24 Laboratory Results - last 24 hr 02/24/24 12:07: WBC 7.5, RBC 4.06 L, Hgb 12.5, Hct 39.3, MCV 96.8, MCH 30.8, MCHC 31.8, RDW 15.4, Plt Count 371, MPV 7.8, Neut % (Auto) 50.2, Lymph % (Auto) 41.9, Hooker % (Auto) 5.5, Eos % (Auto) 1.2, Baso % (Auto) 1.1, Neut # (Auto) 3.8, Lymph # (Auto) 3.2, Hooker # (Auto) 0.4, Eos # (Auto) 0.1, Baso # (Auto) 0.1, Sodium 147 H, Potassium 3.3 L, Chloride 107, Carbon Dioxide 23, Anion Gap 20.3 H, BUN 38 H, Creatinine 1.10 H, Estimated Creat Clear 42, Estimated GFR 49 L, Est GFR ( Amer) 59, Glucose 191 H, Calcium 10.4 H, Magnesium 1.7, Total Bilirubin 0.4, AST 36, ALT 36, Alkaline Phosphatase 69, Total Creatine Kinase < 20 L, Troponin I < 0.01, Total Protein 7.6 D, Albumin 4.4, Globulin 3.2, Albumin/Globulin Ratio 1.4, Lipase 170, TSH 0.31 L, Free T4 1.79, Salicylates < 1.0 L, Acetaminophen < 10 L, Plasma/Serum Alcohol < 10, Acetone Level None detected 02/24/24 12:22: Urine Color Yellow, Urine Appearance Clear, Urine pH 6.0, Ur Specific Phillips 1.020, Urine Protein Trace, Urine Glucose (UA) Negative, Urine Ketones Negative, Urine Blood Trace-i, Urine Nitrate Positive, Urine Bilirubin Negative, Urine Urobilinogen 0.2, Ur Leukocyte Esterase 2+ A, Urine RBC 3-5, Urine WBC 20-50, Ur Squamous Epith Cells None, Urine Bacteria 1+, Urine Yeast Occasional, Urine Opiates Screen Negative, Urine Methadone Screen Negative, Ur Barbituates Screen Negative, Ur Phencyclidine Scrn Negative, Ur Amphetamines Screen Negative, U Benzodiazepines Scrn Negative, Urine Cocaine Screen Negative, U Marijuana (THC) Screen Negative 02/24/24 12:23: VBG pH 7.50 H, VBG pCO2 29.4 L, VBG pO2 41.7 H, VBG HCO3 22.5 L, VBG Total CO2 23.4, VBG O2 Saturation 82.8 H, VBG Base Excess -0.6, VBG Lactic Acid 6.8 H I & O for Last 24 hours: Intake & Output 02/21/24 02/22/24 02/23/24 02/24/24 23:59 23:59 23:59 23:59 Weight 58.967 kg Constitutional Constitutional: no acute distress and cooperative *Routine HEENT Exam Head: Present normocephalic and atraumatic Eye: Present EOMI, PERRL and normal accommodation ENT: Present mucous membranes moist *Routine Neck Exam Neck: Present supple, full ROM and trachea midline *Routine Respiratory Exam Respiratory: Present CTA bilaterally and normal respiratory effort; Absent respiratory distress, rhonchi, wheezes or crackles *Routine Cardiovascular Exam Cardiovascular: Present RRR, Normal S1 and Normal S2 *Routine Abdominal Exam Abdominal: Present soft and normoactive bowel sounds; Absent tenderness *Routine Rectal Exam Rectal:: deferred *Routine Genitalia Exam Genitalia:: deferred *Routine Extremities Exam Extremities: Present full ROM and pulses intact; Absent cyanosis, clubbing or edema *Routine Skin Exam Skin: Present intact, erythema, warm and wounds *Routine Neurological Exam Neurological: Present alert, normal reflexes, moving all extremities, normal speech and tremors Comments: Oriented to self, at baseline mentation. Routine Psychiatric Exam Psychiatric: Present anxious Assessment and Plan *Assessment and plan (1) UTI (urinary tract infection): Status: Acute Category: Medical Code(s): N39.0 - Urinary tract infection, site not specified (2) KRISTIE (acute kidney injury): Status: Resolved Category: Medical Code(s): N17.9 - Acute kidney failure, unspecified (3) Urinary retention: Status: Resolved Category: Medical Code(s): R33.9 - Retention of urine, unspecified (4) Weakness: Status: Acute Category: Medical Code(s): R53.1 - Weakness (5) Anemia: Status: Acute Category: Medical Code(s): D64.9 - Anemia, unspecified (6) Diabetes mellitus, type 2: Status: Acute Qualifiers: Diabetes mellitus exterminator insulin use: without fdc use Diabetes mellitus complication status: with other specified complication Qualified Code(s): E11.69 - Type 2 diabetes mellitus with other specified complication Category: Medical Code(s): E11.9 - Type 2 diabetes mellitus without complications (7) Candidal dermatitis: Status: Acute Category: Medical Code(s): B37.2 - Candidiasis of skin and nail (8) Hypertension: Status: Acute Category: Medical Code(s): I10 - Essential (primary) hypertension (9) Anxiety: Status: Chronic Category: Medical Code(s): F41.9 - Anxiety disorder, unspecified (10) Respiratory alkalosis: Status: Acute Category: Medical Code(s): E87.3 - Alkalosis Plan 73-year-old female with PMHx of insulin-dependent diabetes, [facility] Was brought by [facility] to the ER for decreased p.o. intake and concern for urinary retention. Patient complaining some abdominal discomfort. Workup in the ER showing concern for UTI and KRISTIE. Medicine consulted for admission and further management. Discussed case with ER, request admission due to urinary retention, KRISTIE, UTI, and inability to return back to her personal-long-term. Medicine agreed to admit for further management. Admitted for observation. Case management consulted and assisting with evaluation of patient's guardianship status. Needs long-term care. Anticipate prolonged admission due to patient's clinical condition, inability to make decisions for herself, and need for long-term placement. Problems addressed as follows: KRISTIE UTI -White cell count normal at 7.4. Urine grossly abnormal however with 2+ leuk esterase, positive for nitrate, 1+ bacteria. 20-50 white cells per high-powered field. Initiated on ceftriaxone in the ER, will broaden to levofloxacin given recent discharge a week ago and urinary retention. -Urine culture pending -Chowdary catheter in place, will need to remain in place due to retention -KRISTIE with creatinine of 1.1 and BUN of 38. Appears prerenal. Concern for obstructive component as well. Creatinine baseline of 0.7. Repeat CBC, CMP, magnesium ordered for the morning -Status post 1 L IV fluids. -Sodium 147, consistent with mild dehydration. -Potassium 3.3. Will monitor in the morning and replace as necessary. Respiratory alkalosis: Patient anxious. VBG pCO2 of 29, VBG pH of 7.5. Will treat patient's anxiety with resumption of her home meds including Zoloft, Ativan, and BuSpar. Urine negative for benzodiazepines. Concerned she has not been receiving her medications at her personal-long-term. -Continue BuSpar 10 mg twice daily, Ativan 0.5 mg twice daily, and Zoloft 100 mg daily Sinus tachycardia: resume home metoprolol tartrate 25 mg twice daily Continue multivitamin with iron Urinary retention: - Patient's urinary retention concerning for differential as follows: detrusor underactivity, bladder neck obstruction, dysfunctional voiding, medication side effect, or neurologic disorder. Unclear etiology. Will refer to urology as an outpatient. - Will continue tamsulosin 0.4 mg twice daily. - Given patient's psychiatric history, unable to stop SSRI at this time and benzos. This complicates her retention. Will avoid anticholinergic medications. -Full catheter to remain in place. Unable to discharge to her personal-long-term due to catheter. Needing placement. Hx of NIDDM: A1c 4.9 during last admission. Diabetic medications discontinued PLOV for dvt ppx protonix Full code regular diet PT and OT working with patient. Case management assisting with decision making capacity/potential guardianship for referral to rehab.
[2024-02-24 16:02] LABS: Troponin I < 0.01 ng/ml (0.00-0.034)
[2024-02-24] MEDS: AZITHROMYCIN 500 MG in 0.9 % SODIUM CHLORIDE 250 ML 250 MG IV (16:10)
--- NOTE | 2024-02-24 16:19 | PC.NURSE ---
PT IS UNABLE TO VERIFY HOME MEDICATIONS AND MED REC PAPERWORK WAS NOT PROVIDED BY FACILITY. UNABLE TO COMPLETE MED REC ACCURATELY AT THIS TIME.
[2024-02-24 16:34] LABS: Reflex Lactic Add Lactic Reflex
[2024-02-24 17:17] LABS: Lactic Acid Follow Up (RFLX 1) 4.2 mmol/L (0.7-2.1)
--- NOTE | 2024-02-24 17:26 | PC.NURSE ---
med rec completed via telephone with staff from [facility].
[2024-02-24] MEDS: LORazepam 0.5MG TABLET 0.25 MG PO ×2 (18:06→20:12)
[2024-02-24 19:00] LABS: Reflex Lactic (2 hrs) Add Lactic Reflex
[2024-02-24] MEDS: TAMSULOSIN 0.4MG CAPSULE 0.400000000000000022 MG PO (20:12)
[2024-02-24] MEDS: METOPROLOL TARTRATE 25MG TABLET 25 MG PO (20:13)
[2024-02-24] MEDS: FAMOTIDINE 20MG TABLET 20 MG PO (20:13)
[2024-02-24] MEDS: BUSPIRONE HCL 10 MG TABLET PO (20:13)
[2024-02-24] MEDS: LEVOFLOXACIN/D5W 750 MG/150 ML 750 MG/150 ML PIGGYBACK 100 MG IV (20:14)
--- NOTE | 2024-02-24 20:15 | PC.NURSE ---
Lab called about critical value. Dr. Castaneda was informed about lactate of 5.0
[2024-02-24 21:02] LABS: POC Glucose,Bedside 169 (70-110)
[2024-02-24 23:16] LABS: Adenovirus F 40/41, stool Not Detected (NotDetected); Astrovirus Not Detected (NotDetected); Campylobacter Not Detected (NotDetected); Clostridium Difficile A/B, PCR Not Detected (NotDetected); Cryptosporidium Not Detected (NotDetected); Cyclospora Cayetanesis Not Detected (NotDetected); Entamoeba histolytica Not Detected (NotDetected); Enteroaggregative E coli Not Detected (NotDetected); Enteropathogenic E coli Not Detected (NotDetected); Enterotoxigenic E coli Not Detected (NotDetected); Giardia lamblia Not Detected (NotDetected); Norovirus Not Detected (NotDetected); Plesimonas Shigalloides, PCR Not Detected (NotDetected); Rotavirus A Not Detected (NotDetected); Salmonella, PCR Not Detected (NotDetected); Sapovirus Not Detected (NotDetected); Shiga-like toxin E coli Not Detected (NotDetected); Shigella Enterovasive E coli Not Detected (NotDetected); Vibrio Cholerae Not Detected (NotDetected); Vibrio, PCR Not Detected (NotDetected); Yersinia Entercolitica, PCR Not Detected (NotDetected)
[2024-02-25 04:00] VITALS: BP 95/72; PULSE 95; RESP 18; TEMP 37.1; O2SAT 98; BMI 25.1
--- NOTE | 2024-02-25 05:23 | PC.NURSE ---
Pt rested well for majority of the night. Pt continues to have shortness of breath but states it is normal to her and she'll be fine. Pt tolerates room air well and O2 saturations maintained 100 and 98. Pt's soto catheter is intact and free of kinks. Pt incontinent of stool and claims she has had diarrhea frequently. Stool sample taken, no abnormal results detected. Pt continues to sleep at this time.
[2024-02-25 06:28] LABS: Basophils # 0.1 K/mm3 (0-0.2); Basophils % 0.9 % (0.1-2.0); Eosinophils # 0.3 K/mm3 (0.0-0.4); Eosinophils % 3.7 % (0.1-12.0); Hematocrit 30.7 % (37.0-47.0); Lymphocytes # 3.7 K/mm3 (0.7-4.5); Lymphocytes % 48.3 % (10-50); Mean Corpuscular HGB Conc 32.7 g/dL (31.8-35.4); Mean Corpuscular Hemoglobin 31.5 pg (27.0-31.2); Mean Corpuscular Volume 96.2 fl (81-99); Monocytes # 0.4 K/mm3 (0.1-1.0); Monocytes % 4.6 % (1.7-9.3); Neutrophils # 3.2 K/mm3 (1.8-7.8); Neutrophils % 42.6 % (37.0-80.0); Platelet Count 254 K/mm3 (142-424); Red Blood Count 3.19 M/mm3 (4.20-5.40); Red Cell Distribution Width 15.3 % (11.5-17.5); White Blood Count 7.6 K/mm3 (4.8-10.8)
[2024-02-25 06:30] LABS: Chloride 106 mmol/L (98-107)
[2024-02-25 06:31] LABS: Sodium 136 mmol/L (136-145)
[2024-02-25 06:33] LABS: Alanine Aminotransferase 15 U/L (12-78); Alkaline Phosphatase 65 U/L (38-126); Aspartate Amino Transferase 25 U/L (14-36); Bilirubin,Total 0.4 mg/dl (0.2-1.3); Blood Urea Nitrogen 30 mg/dl (7-17); Carbon Dioxide 24 mmol/L (22.0-30.0); Creatinine Clearance Estimated 50 mL/min (50-200); Estimated Glomerular Filt Rate 61 ml/min (>60); GFR (African American) 74 ML/MIN (>60)
[2024-02-25 06:34] LABS: Albumin Level 3.1 g/dl (3.5-5.0); Albumin/Globulin Ratio 1.2 (1.1-1.8); Calcium 8.8 mg/dl (8.4-10.2); Globulin 2.5 g/dL (1.3-3.2); Glucose 135 mg/dl (74-100); Hemoglobin 10.1 g/dL (12.2-16.2); Magnesium 1.5 mg/dl (1.6-2.3); Total Protein,Serum 5.6 g/dl (6.3-8.2)
[2024-02-25 06:40] LABS: POC Glucose,Bedside 138 (70-110)
--- NOTE | 2024-02-25 07:33 | P.PN_ITS ---
Subjective *Date: 02/25/24 *Time: 09:46 Interval history: Afebrile overnight. Stable on room air. States abdominal pain is better. Requesting coffee on morning rounds. No chest pain or shortness of breath. No nausea or vomiting. Pleasant on exam this morning Medical Exam Vital signs and Labs for Last 24 Hours: Vital Signs Temp Pulse Pulse Resp BP BP Pulse Ox 02/25/24 06:34 02/25/24 04:52 02/25/24 04:00 98.7 F 95 H 18 95/72 L 98 02/25/24 02:57 02/25/24 00:52 02/24/24 22:51 02/24/24 21:00 02/24/24 20:00 84 20 100 02/24/24 19:51 97.8 F 84 20 104/60 L 100 02/24/24 18:10 02/24/24 17:00 02/24/24 16:00 98 F 97 H 22 112/67 100 02/24/24 15:36 97.8 F 80 16 116/59 L 02/24/24 15:01 97/79 L 02/24/24 14:30 111/72 02/24/24 14:00 99/75 L 02/24/24 13:16 80 111/69 96 02/24/24 13:00 82 110/85 96 02/24/24 12:37 72 114/74 99 02/24/24 12:24 97.8 F 86 24 123/77 99 O2 Del Method 02/25/24 06:34 Room Air 02/25/24 04:52 Room Air 02/25/24 04:00 Room Air 02/25/24 02:57 Room Air 02/25/24 00:52 Room Air 02/24/24 22:51 Room Air 02/24/24 21:00 Room Air 02/24/24 20:00 Room Air 02/24/24 19:51 Room Air 02/24/24 18:10 Room Air 02/24/24 17:00 Room Air 02/24/24 16:00 Room Air 02/24/24 15:36 Room Air 02/24/24 15:01 02/24/24 14:30 02/24/24 14:00 02/24/24 13:16 02/24/24 13:00 02/24/24 12:37 02/24/24 12:24 Room Air Intake and Output 02/24/24 02/24/24 02/25/24 15:59 23:59 07:59 Intake Total 200 / 350 150 / 150 Output Total 1350 / 1350 Balance -1150 / -1000 150 / 150 Intake: Intake, Oral Amount 200 / 200 Intake, Total IV Amount 150 / 150 Levofloxacin/D5w 750 mg/150 ml 150 / 150 750 mg In 150 ml @ 100 mls/hr IV Q24H [facility] Rx#:[id number] Output: Output, Urine Amount 1350 / 1350 Other: Number of Voids 1 Number of Unmeasured Voids 0 Number of Bowel Movements 1 Weight 58.967 kg 64.319 kg Patient Weight 02/25/24 23:59 Weight 64.319 kg Laboratory Results - last 24 hr 02/24/24 12:07: WBC 7.5, RBC 4.06 L, Hgb 12.5, Hct 39.3, MCV 96.8, MCH 30.8, MCHC 31.8, RDW 15.4, Plt Count 371, MPV 7.8, Neut % (Auto) 50.2, Lymph % (Auto) 41.9, Bailey % (Auto) 5.5, Eos % (Auto) 1.2, Baso % (Auto) 1.1, Neut # (Auto) 3.8, Lymph # (Auto) 3.2, Bailey # (Auto) 0.4, Eos # (Auto) 0.1, Baso # (Auto) 0.1, Sodium 147 H, Potassium 3.3 L, Chloride 107, Carbon Dioxide 23, Anion Gap 20.3 H , BUN 38 H, Creatinine 1.10 H, Estimated Creat Clear 42, Estimated GFR 49 L, Est GFR ( Amer) 59, Glucose 191 H, Calcium 10.4 H, Magnesium 1.7, Total Bilirubin 0.4, AST 36, ALT 36, Alkaline Phosphatase 69, Total Creatine Kinase < 20 L, Troponin I < 0.01, Total Protein 7.6 D, Albumin 4.4, Globulin 3.2, Albumin/Globulin Ratio 1.4, Lipase 170, TSH 0.31 L, Free T4 1.79, Salicylates < 1.0 L, Acetaminophen < 10 L, Plasma/Serum Alcohol < 10, Acetone Level None detected 02/24/24 12:22: Urine Color Yellow, Urine Appearance Clear, Urine pH 6.0, Ur Specific [place] 1.020, Urine Protein Trace, Urine Glucose (UA) Negative, Urine Ketones Negative, Urine Blood Trace-i, Urine Nitrate Positive, Urine Bilirubin Negative, Urine Urobilinogen 0.2, Ur Leukocyte Esterase 2+ A, Urine RBC 3-5, Urine WBC 20-50, Ur Squamous Epith Cells None, Urine Bacteria 1+, Urine Yeast Occasional, Urine Opiates Screen Negative, Urine Methadone Screen Negative, Ur Barbituates Screen Negative, Ur Phencyclidine Scrn Negative, Ur Amphetamines Screen Negative, U Benzodiazepines Scrn Negative, Urine Cocaine Screen Negative, U Marijuana (THC) Screen Negative 02/24/24 12:23: VBG pH 7.50 H, VBG pCO2 29.4 L, VBG pO2 41.7 H, VBG HCO3 22.5 L, VBG Total CO2 23.4, VBG O2 Saturation 82.8 H, VBG Base Excess -0.6, VBG Lactic Acid 6.8 H 02/24/24 15:34: Troponin I < 0.01 02/24/24 16:54: Lactate 4.2 H 02/24/24 19:38: Lactate 5.0 H 02/24/24 20:28: POC Glucose 169 H 02/24/24 20:44: Stl Aeromonas (PCR) Not detected, Stl C. cayetanensis PCR Not detected, Stool Rotavirus (PCR) Not detected, Stl Adenov F 40/41 PCR Not detected, Stool Astrovirus (PCR) Not detected, Stool Campylobacter PCR Not detected, Stl C.difficile Tox PCR Not detected, Stool Cryptosporidium PCR Not detected, Stl E.coli Shiga Tox PCR Not detected, Stool E coli O157 PCR Not detected, Stl Enterotoxigenic E PCR Not detected, Stool EPEC (PCR) Not detected, Stool EAEC (PCR) Not detected, Stl E. histolytica PCR Not detected, Stool Giardia Lamblia PCR Not detected, Stool Salmonella PCR Not detected, Stool Sapovirus (PCR) Not detected, Stl P. shigelloides PCR Not detected, Stl Shigella/EIEC PCR Not detected, St Y.enterocolitica PCR Not detected, Stool Vibrio (PCR) Not detected, Stl Vibrio cholerae PCR Not detected, Stl Norovirus GI/GII PCR Not detected 02/25/24 05:36: WBC 7.6, RBC 3.19 L, Hgb 10.1 L D, Hct 30.7 L, MCV 96.2, MCH 31.5 H, MCHC 32.7, RDW 15.3, Plt Count 254 D, MPV 8.0, Neut % (Auto) 42.6, Lymph % (Auto) 48.3, Bailey % (Auto) 4.6, Eos % (Auto) 3.7, Baso % (Auto) 0.9, Neut # (Auto) 3.2, Lymph # (Auto) 3.7, Bailey # (Auto) 0.4, Eos # (Auto) 0.3, Baso # (Auto) 0.1, Sodium 136, Potassium 3.0 L, Chloride 106, Carbon Dioxide 24, Anion Gap 9.0, BUN 30 H, Creatinine 0.90, Estimated Creat Clear 50, Estimated GFR 61, Est GFR ( Amer) 74 D, Glucose 135 H D, Calcium 8.8, Magnesium 1.5 L D, Total Bilirubin 0.4, AST 25 D, ALT 15 D, Alkaline Phosphatase 65, Total Protein 5.6 L D, Albumin 3.1 L D, Globulin 2.5, Albumin/Globulin Ratio 1.2 02/25/24 06:33: POC Glucose 138 H I & O for Labs for Last 24 Hours: Intake & Output 02/22/24 02/23/24 02/24/24 02/25/24 23:59 23:59 23:59 23:59 Intake Total 200 / 350 150 / 150 Output Total 1350 / 1350 Balance -1150 / -1000 150 / 150 Weight 58.967 kg 64.319 kg Constitutional: Present no acute distress, average body habitus and cooperative Head: Present atraumatic and normocephalic ENT: Present normal exam Respiratory: Present normal respiratory effort; Absent rhonchi, wheezes or crackles Cardiac: Present Reg Rate and Rhythm GI: Present soft and normal bowel sounds; Absent distention or tenderness Comment:: Chowdary catheter in place Extremities: Present normal inspection and full ROM; Absent edema Skin: Present intact; Absent erythema Neuro: Present Essential Tremor, Grossly Intact, alert, awake and moves all extremities Comment:: Oriented to self only Assessment and Plan *Assessment and plan (1) UTI (urinary tract infection): Status: Acute Category: Medical Code(s): N39.0 - Urinary tract infection, site not specified (2) KRISTIE (acute kidney injury): Status: Resolved Category: Medical Code(s): N17.9 - Acute kidney failure, unspecified (3) Urinary retention: Status: Resolved Category: Medical Code(s): R33.9 - Retention of urine, unspecified (4) Hypokalemia: Status: Acute Category: Medical Code(s): E87.6 - Hypokalemia (5) Weakness: Status: Acute Category: Medical Code(s): R53.1 - Weakness (6) Anemia: Status: Acute Category: Medical Code(s): D64.9 - Anemia, unspecified (7) Diabetes mellitus, type 2: Status: Acute Qualifiers: Diabetes mellitus complication status: with other specified complication Diabetes mellitus moth exterminator insulin use: without moth exterminator use Qualified Code(s): E11.69 - Type 2 diabetes mellitus with other specified complication Category: Medical Code(s): E11.9 - Type 2 diabetes mellitus without complications (8) Candidal dermatitis: Status: Acute Category: Medical Code(s): B37.2 - Candidiasis of skin and nail (9) Hypertension: Status: Acute Category: Medical Code(s): I10 - Essential (primary) hypertension (10) Anxiety: Status: Chronic Category: Medical Code(s): F41.9 - Anxiety disorder, unspecified (11) Respiratory alkalosis: Status: Acute Category: Medical Code(s): E87.3 - Alkalosis Plan 73-year-old female with PMHx of insulin-dependent diabetes[facility] Was brought by EMS to the ER for decreased p.o. intake and concern for urinary retention. Patient complaining some abdominal discomfort. Workup in the ER showing concern for UTI and KRISTIE. Medicine consulted for admission and further management. Discussed case with ER, request admission due to urinary retention, KRISTIE, UTI, and inability to return back to her personal-snf. Medicine agreed to admit for further management. Admitted for observation. Case management consulted and assisting with evaluation of patient's guardianship status. Needs long-term care. Anticipate prolonged admission due to patient's clinical condition, inability to make decisions for herself, and need for long-term placement. Tolerating antibiotics. Showing clinical improvement. Problems addressed as follows: KRISTIE UTI -White cell count normal at 7.6. Urine grossly abnormal on admission with 2+ leuk esterase, positive for nitrate, 1+ bacteria. 20-50 white cells per high- powered field. -Continue levofloxacin 750 mg daily; Urine culture pending -Chowdary catheter in place, will need to remain in place due to retention -Creatinine 0.9, BUN 30 this morning on labs. Holding on further IV fluids. Tolerating p.o. fluids. -Repeat CBC, CMP, magnesium ordered for the morning -Sodium 136, potassium 3.0, magnesium 1.5. Will supplement potassium and magnesium today with oral replacement and IV. Respiratory alkalosis: Patient anxious. VBG pCO2 of 29, VBG pH of 7.5. Will treat patient's anxiety with resumption of her home meds including Zoloft, Ativan, and BuSpar. Urine negative for benzodiazepines. Concerned she has not been receiving her medications at her personal-snf. -Continue BuSpar 10 mg twice daily, Ativan 0.25 mg twice daily, and Zoloft 100 mg daily Sinus tachycardia: Improved, continue home metoprolol tartrate 25 mg twice daily Continue multivitamin with iron Urinary retention: - Patient's urinary retention concerning for differential as follows: detrusor underactivity, bladder neck obstruction, dysfunctional voiding, medication side effect, or neurologic disorder. Unclear etiology. Will refer to urology as an outpatient. - Will continue tamsulosin 0.4 mg twice daily. - Given patient's psychiatric history, unable to stop SSRI at this time and benzos. This complicates her retention. Will avoid anticholinergic medications. - Chowdary catheter to remain in place. Unable to discharge to her personal-snf due to catheter. Needing placement. Hx of NIDDM: A1c 4.9 during last admission. Diabetic medications discontinued. Glucose 135 on morning labs. PLOV for dvt ppx protonix Full code regular diet PT and OT working with patient. Case management assisting with decision making capacity/potential guardianship for referral to rehab.
--- NOTE | 2024-02-25 07:41 | PC.NURSE ---
Current Medications Aspirin (Aspirin 81mg Chewable Tablet) 81 mg PO DAILY CASPER Stop: 03/26/24 08:59 Buspirone HCl (Buspirone Hcl 10 Mg Tablet) 10 mg PO BID CASPER Stop: 03/25/24 20:59 Last Admin: 02/24/24 20:13 Dose: 10 mg Enoxaparin Sodium (Enoxaparin 40mg/0.4ml Syringe) 40 mg SQ DAILY CASPER Stop: 03/26/24 08:59 Ergocalciferol (Ergocalciferol 50,000 Units (1.25mg) Capsule) 50,000 unit PO WEEKLY CASPER Stop: 03/26/24 08:59 Famotidine (Famotidine 20mg Tablet) 20 mg PO BID CASPER Stop: 03/25/24 20:59 Last Admin: 02/24/24 20:13 Dose: 20 mg Furosemide (Furosemide 40 Mg Tablet) 40 mg PO DAILY CASPER Stop: 03/26/24 08:59 Levofloxacin/Dextrose (Levofloxacin 750mg/150ml Premix) 750 mg in 150 mls @ 100 mls/hr IV Q24H CASPER Stop: 03/05/24 19:59 Last Admin: 02/24/24 20:14 Dose: 100 mls/hr Magnesium Sulfate (Magnesium Sulfate 2gm/50ml Premix) 2 gm in 50 mls @ 50 mls/hr IV ONCE ONE Stop: 02/25/24 08:59 Lorazepam (Lorazepam 0.5mg Tablet) 0.25 mg PO BID CASPER Stop: 03/25/24 20:59 Last Admin: 02/24/24 20:12 Dose: 0.25 mg Magnesium Oxide (Magnesium Oxide 400mg Tablet) 400 mg PO DAILY CASPER Stop: 03/26/24 08:59 Metoprolol Tartrate (Metoprolol Tartrate 25mg Tablet) 25 mg PO BID CASPER Stop: 03/25/24 20:59 Last Admin: 02/24/24 20:13 Dose: 25 mg Nystatin (Nystatin Topical Powder 30gm) 0 gm TP BID CASPER Stop: 03/25/24 20:59 Last Admin: 02/25/24 07:24 Dose: Not Given Potassium Chloride (Potassium Chloride 20meq Tab) 20 meq PO TID CASPER Stop: 02/26/24 21:01 Multivit/Folic Acid/Iron ( Multivitamin W/Iron) 1 each PO 1700 CASPER Stop: 03/26/24 16:59 Sertraline HCl (Sertraline 100mg Tablet) 100 mg PO DAILY CASPER Stop: 03/26/24 08:59 Sodium Chloride (Sodium Chloride 0.9% 10ml Flush Syringe) 10 ml IV NEEDED PRN PRN Reason: Maintain IV Site Stop: 03/26/24 07:29 Tamsulosin HCl (Tamsulosin 0.4mg Capsule) 0.4 mg PO BID CASPER Stop: 03/25/24 20:59 Last Admin: 02/24/24 20:12 Dose: 0.4 mg
[2024-02-25 07:51] VITALS: BP 113/58; PULSE 78; RESP 18; TEMP 36.8; O2SAT 98
[2024-02-25] MEDS: ASPIRIN 81MG CHEWABLE TABLET 81 MG PO (09:32)
[2024-02-25] MEDS: MAGNESIUM SULFATE IN WATER 2 GM/50 ML PIGGYBACK IV (09:32)
[2024-02-25] MEDS: ENOXAPARIN 40MG/0.4ML SYRINGE 40 MG SQ (09:33)
[2024-02-25] MEDS: MAGNESIUM OXIDE 400MG TABLET 400 MG PO (09:33)
[2024-02-25] MEDS: FAMOTIDINE 20MG TABLET 20 MG PO ×2 (09:33→20:13)
[2024-02-25] MEDS: FUROSEMIDE 40 MG TABLET PO (09:33)
[2024-02-25] MEDS: ERGOCALCIFEROL 50,000 UNITS (1.25MG) CAPSULE 50000 UNIT PO (09:33)
[2024-02-25] MEDS: BUSPIRONE HCL 10 MG TABLET PO ×2 (09:33→20:13)
[2024-02-25] MEDS: METOPROLOL TARTRATE 25MG TABLET 25 MG PO ×2 (09:34→20:13)
[2024-02-25] MEDS: TAMSULOSIN 0.4MG CAPSULE 0.400000000000000022 MG PO ×2 (09:34→20:13)
[2024-02-25] MEDS: POTASSIUM CHLORIDE 20MEQ TAB 20 MEQ PO ×3 (09:34→20:13)
[2024-02-25] MEDS: SERTRALINE 100MG TABLET 100 MG PO (09:34)
[2024-02-25] MEDS: NYSTATIN TOPICAL POWDER 30GM TP ×2 (09:34→20:23)
[2024-02-25] MEDS: LORazepam 0.5MG TABLET 0.25 MG PO ×2 (09:38→20:14)
--- NOTE | 2024-02-25 09:39 | SW/DCPLANNER ---
Addendum entered by [facility] 03/24/24 07:53: Patient will discharge to [facility] level of care today. Addendum entered by [facility] 03/23/24 13:20: The plan for this patient is to discharge to [facility] tomorrow morning. I have updated patient's emergency appointed guardian (Gunjan Jarrett [phone]), Collette HARRIS, [facility] [place] and . Addendum entered by [facility] 03/23/24 09:15: Patient information has been faxed to [facility] and [facility]. Medina becerra/ [facility] will speak w/ STEVEN (Collette) this AM regarding referral. [facility] and [facility] patient today. Addendum entered by [facility] 03/22/24 09:51: I attended court hearing this AM for this patient. Emergency Guardianship was aborted due to no need for emergency decisions. However per [facility] patient can go to placement while waiting for Guardianship and decisions will be made by DCBS at this time. Per Collette becerra/ STEVEN I can start to work on placement for this patient. [facility] information [facility] AM. Addendum entered by [facility] 03/18/24 11:51: Collette HARRIS did verify this AM that patient's Guardianship case is on the court docket for 8:30 AM Friday03/22/24. Addendum entered by [facility] 03/15/24 16:14: All paperwork was completed by APS during meeting w/ Ed and will be turned into [facility] today. Ed expects a court date on 03/22/24 and will keep me posted. Addendum entered by Blanca Anne RN 03/12/24 16:48: APS and Chace Hicks have an appointment on Friday at 1:30pm to discuss forms and hopefully complete them in order for them to filed with the court. Addendum entered by Blanca Anne RN 03/09/24 10:14: [facility]lette [facility] states she dropped paperwork off to Ed Fabiola last afternoon and had not heard anything yet. She would reach out to his office today. I reached out to Mr. Hicks and he states the paperwork has not be completed correctly as they did not include medical guardianship when completing and this needs to be done. I reached out to Collette again to verify she would reach out or stop by today. Addendum entered by Erin Corona 03/04/24 07:46: Per Collette Guardianship did approve patient for Emergency Guardianship criteria and paperwork has been completed and dropped off at Ed Fabiola's office. Addendum entered by Erin Corona 03/03/24 07:38: Received a phone call from Ed yesterday stated that he is trying to get in contact w/ Millie due to Emergency Guardianship paperwork not being completed correctly. I did contact Collette and she stated that she will call Ed back. I will follow up w/ situation today. Addendum entered by Erin Corona 03/01/24 09:09: Collette w/ [employer] stated that Emergency Guardianship paperwork will be completed today and dropped of at Ed Fabiola office for signature and filing. Addendum entered by Blanca Anne RN 02/27/24 07:53: Collette called yesterday afternoon and is filling out the emergency guardianship for patient as Ed Fabiola believes it is emergency. They will continue to follow up with us. Addendum entered by Erin Corona 02/26/24 11:26: Massiel Fitch CM and myself spoke w/ Chace Hicks at his office this AM. While in his office I did arrange between Ed and APS (Collette) to meet at 2PM today to sign all paperwork. Collette stated that she will return completed paperwork to Clerks office today. I will continue to follow up w/ Chace and Collette. Original Note: [facility] was [facility] yesterday [facility]. Per Chasidy Eid w/ APS this patient was recently reassessed and does still need a State Guardian. Per Chasidy this process has not been completed due to APS worker (Collette) not being able to get in touch w/ Ed Fabiola. Supervising Nurse Akash Peck contacted me yesterday regarding situation and stated that he would assist in making a few phone calls to help complete Guardianship process. I am currently waiting to hear back from Akash. Patient will require a LTC at time of discharge.
--- NOTE | 2024-02-25 09:49 | HMH.OTEV ---
OT Inpatient Evaluation Rehab OT IP Evaluation Start: 02/24/24 17:40 Freq: ONCE Status: Active Protocol: Document 02/25/24 08:54 ROSALIND (Rec: 02/25/24 09:47 MANHECTOR [id number]) Rehab OT IP Assessment Subjective History Pt is a 73 year old female who was admitted to this facility on 02/24/2024 due to UTI, ATK. Pt was recently discharged from this facility following a lengthy stay due to trying to find a guardian for pt. Pt demonstrated good participation in therapy sessions. Pt lives at [facility]. Pt has a catheter. Pt has a hx of falls and confusion. Pt PLOF before being admitted to this facility was independent in basic ADLs. Pt uses a walker. Pt does not have steps at facility. Subjective I remember you from last time . Pt was supine in bed when therapy arrived this morning. Pt was agreeable to participate in initial OT evaluation this morning. Pt was oriented x1. Pt was agreeable to sit on EOB. Pt went from supine to EOB with Max verbal cues and CGA. Pt was able to sit on EOB with static sitting balance, SBA for ~1 minute. Pt was agreeable to stand while therapy fixed sheets on bed. Pt completed a sit to stand transfer with Min Assist. Pt was able to hold static standing balance for ~1 minute with CGA while therapy fixed sheets. Pt refused to walk and sat back on EOB with CGA. Pt went from EOB to supine with SBA. Pt was left supine in bed with call light and all other needs within reach. Objective Patient Orientation Person Right Upper Extremity Gross ROM WFL Left Upper Extremity Gross ROM WFL Bed Mobility bed mobility-scooting,bed mobility - supine/sit Assist Level Contact Guard/Hand Hold Transfer Training Sit/Stand Transfer Assist Level Minimal x 1 (25% assist) Rehab OT IP prob,goals,plan Problems Date of Evaluation: 02/25/24 OT IP Problems Bed Mobility,Transfers,Balance ,Self care,Safety Rehab Potential Rehab Potential Good Equipment Needs Assistive Devices Standard Walker Plan OT intervention Plan Bed Mobility,Transfers,Balance ,Self care,Safety,Therapeutic Exercise OT Plan Frequency Daily Duration LOS Discharge Goals Bed Mobility Ability Standby Assistance Sit to Stand Chair Transfer Ability Contact Guard/Hand Hold Chair Transfer Ability Minimal x 1 (25% assist) Chair Transfer Technique Sit to/from Ambulatory Chair Transfer Assistive Devices Rolling Walker Feeding Ability Assist with Tray Set Up Lower Body Dressing Ability Minimal Assistance Upper Body Dressing Ability Standby Assistance Bathing Ability Minimal Assistance Performing Toilet Hygiene Ability Moderate Assistance Overall Commode/Toilet Transfer Ability Minimal Assistance Commode/Toilet Transfer Technique Sit to/from Ambulatory Discharge Plan OT Discharge Plan Pt will continue to be seen while at this facility to receive skilled OT services. At this time, it is recommneded short term rehab at snf following discharge from [facility]. Continued skilled therapy is important in order for patient to return to [facility]. Eval Complexity Eval Charge Codes 57586 - Moderate Complexity PHYSICIAN CERTIFICATION: I certify the specified therapy services for Amy Montes are required, authorized, and reviewed every 30 days.
--- NOTE | 2024-02-25 10:51 | HMH.PTEV ---
Physical Therapy Evaluation Rehab PT IP Evaluation Start: 02/24/24 17:40 Freq: ONCE Status: Active Protocol: Document 02/25/24 10:47 JAMES (Rec: 02/25/24 10:51 PHORROULA Laptop) Subjective/History History History 73 yowf adm to [facility] with UTI and KRISTIE. She has PMH of DM. Baseline status[facility]. Was recently admitted for a prolonged course due to debility and need for guardianship and placement. She is generally independent with all mobility using a RW for ambulation. Subjective Subjective Pt reports she is tired, but does agree to mobility assessment this am. New diagnosis of cancer in past 12 No months? Rehab PT IP Eval Objective Appearance Patient Behavior Appropriate Patient Orientation Person Difficulty following instructions mild Speech Pattern Patient Baseline Ambulation Patient Able to Ambulate Yes Ambulation Observation IP General Gait Pattern Observation Shuffling Step Ambulation Distance (feet) 25 Ambulation Assistive Device Rolling Walker Ambulation Ability Supervision/Stand by Balance Ability to Arise Able, uses arms to help Sitting Balance Steady, safe Standing Balance Steady, wide stance Dynamic Sitting Balance Ability Good Dynamic Standing Balance Ability Fair Transfers Bed Transfer Ability Supervision/Stand by Chair Transfer Ability Supervision/Stand by Sit to Stand Bed Transfer Ability Supervision/Stand by Sit to Stand Chair Transfer Ability Supervision/Stand by ROM All Extremities PT ROM Status WFL MMT All Extremities PT MMT WFL Rehab PT IP prob,goals,plan Problems Date of Evaluation: 02/25/24 PT IP Problems Bed Mobility,Transfers,Gait Rehab Potential Rehab Potential Good Plan PT Intervention Plan Bed Mobility,Transfers,Gait, Therapeutic Exercise PT Plan Frequency Daily Duration LOS Discharge Goals Bed Transfer Ability Independent Sit to Stand Chair Transfer Ability Independent Ambulation Assistive Device Rolling Walker Ambulation Distance (feet) 50 Discharge Plan PT Discharge Plan Pt is currently appropriate to return to prior living situation once medically stable for d/c. from hospital. Skilled therapy services are indicated to prevent further debility, falls, injury, or wounds and to aid pt return to PLOF. Eval Complexity Eval Charge Codes 16611 - High Complexity PHYSICIAN CERTIFICATION: I certify the specified therapy services for Amy Montes are required, authorized, and reviewed every 30 days.
[2024-02-25 14:06] LABS: POC Glucose,Bedside 221 (70-110)
[2024-02-25 14:19] VITALS: BMI 25.1
--- NOTE | 2024-02-25 15:04 | HMH.PHAINT1 ---
Pharmacy Intervention Comments: MEDICATION RECONCILIATION COMPLETED ON PATIENT USING MAR FROM OUTSIDE FACILITY. -ANGELES LINARES, RUDDYD
[2024-02-25 16:00] VITALS: BP 107/58; PULSE 75; RESP 18; TEMP 36.6; O2SAT 94
[2024-02-25] MEDS: PRENATAL MULTIVITAMIN W/IRON 1 EACH PO (17:32)
--- NOTE | 2024-02-25 17:59 | PC.NURSE ---
Pt is currently eating dinner. Has been up to the chair and ambulated with walker and assistance to BR. Has had a shower this shift. She has had 2 BMs. F/C remains in place with pale yellow urine. Call light within reach. Safety measures in place.
[2024-02-25 20:00] VITALS: BP 94/58; PULSE 85; RESP 18; TEMP 36.7; O2SAT 100
[2024-02-25] MEDS: LEVOFLOXACIN/D5W 750 MG/150 ML 750 MG/150 ML PIGGYBACK 100 MG IV (20:13)
[2024-02-25 20:41] LABS: POC Glucose,Bedside 161 (70-110)
--- NOTE | 2024-02-26 02:16 | PC.NURSE ---
Pt pulled out IV and placed on bedside table. New 22g IV placed right hand.
--- NOTE | 2024-02-26 03:48 | PC.NURSE ---
Pt is alert to self and is tolerating RA well. Pt has not slept well this shift, is confused and has attempted to get out of bed several times this shift, staff has attempted to redirect pt. bed alarm is active and working. Pt has a moderate tremors and has been anxious despite medication., Pt soto remains in place and has clear urine flowing freely. Pt denies pain, and has not had any other acute changes this shift
[2024-02-26 04:00] VITALS: BP 100/60; PULSE 80; RESP 16; TEMP 36.7; O2SAT 94; BMI 25.6
[2024-02-26 05:49] LABS: POC Glucose,Bedside 141 (70-110)
[2024-02-26 06:07] LABS: Basophils # 0.1 K/mm3 (0-0.2); Basophils % 0.8 % (0.1-2.0); Eosinophils # 0.3 K/mm3 (0.0-0.4); Eosinophils % 5.7 % (0.1-12.0); Hematocrit 28.9 % (37.0-47.0); Hemoglobin 9.7 g/dL (12.2-16.2); Lymphocytes # 2.3 K/mm3 (0.7-4.5); Lymphocytes % 38.3 % (10-50); Mean Corpuscular HGB Conc 33.6 g/dL (31.8-35.4); Mean Corpuscular Hemoglobin 32.3 pg (27.0-31.2); Mean Corpuscular Volume 96.2 fl (81-99); Mean Platelet Volume 7.9 fl (7.4-10.4); Monocytes # 0.3 K/mm3 (0.1-1.0); Monocytes % 5.5 % (1.7-9.3); Neutrophils % 49.6 % (37.0-80.0); Platelet Count 226 K/mm3 (142-424); Red Blood Count 3.01 M/mm3 (4.20-5.40); Red Cell Distribution Width 15.4 % (11.5-17.5)
[2024-02-26] MEDS: METFORMIN 500MG TABLET 500 MG PO (06:13)
[2024-02-26 06:16] LABS: Chloride 107 mmol/L (98-107)
[2024-02-26 06:17] LABS: Potassium 3.7 mmoL/L (3.5-5.1); Sodium 133 mmol/L (136-145)
[2024-02-26 06:19] LABS: Alanine Aminotransferase 17 U/L (12-78); Alkaline Phosphatase 53 U/L (38-126); Anion Gap 5.7 mEq/L (5-15); Aspartate Amino Transferase 32 U/L (14-36); Bilirubin,Total 0.3 mg/dl (0.2-1.3); Blood Urea Nitrogen 16 mg/dl (7-17); Carbon Dioxide 24 mmol/L (22.0-30.0); Creatinine Clearance Estimated 51 mL/min (50-200); Estimated Glomerular Filt Rate 70 ml/min (>60); GFR (African American) 85 ML/MIN (>60)
[2024-02-26 06:20] LABS: Albumin Level 2.9 g/dl (3.5-5.0); Albumin/Globulin Ratio 1.3 (1.1-1.8); Calcium 8.4 mg/dl (8.4-10.2); Globulin 2.2 g/dL (1.3-3.2); Glucose 133 mg/dl (74-100); Magnesium 1.7 mg/dl (1.6-2.3); Total Protein,Serum 5.1 g/dl (6.3-8.2)
--- NOTE | 2024-02-26 07:45 | PC.NURSE ---
Spoke with MD. JONES DC. NO IV. ABX will be switched to PO.
[2024-02-26 08:00] VITALS: BP 91/64; PULSE 93; RESP 17; TEMP 37.2; O2SAT 99
[2024-02-26] MEDS: MAGNESIUM OXIDE 400MG TABLET 400 MG PO (08:23)
[2024-02-26] MEDS: ENOXAPARIN 40MG/0.4ML SYRINGE 40 MG SQ (08:23)
[2024-02-26] MEDS: FAMOTIDINE 20MG TABLET 20 MG PO ×2 (08:23→20:35)
[2024-02-26] MEDS: FUROSEMIDE 40 MG TABLET PO (08:23)
[2024-02-26] MEDS: TAMSULOSIN 0.4MG CAPSULE 0.400000000000000022 MG PO ×2 (08:23→20:35)
[2024-02-26] MEDS: BUSPIRONE HCL 10 MG TABLET PO ×2 (08:23→20:35)
[2024-02-26] MEDS: METOPROLOL TARTRATE 25MG TABLET 25 MG PO ×2 (08:23→20:35)
[2024-02-26] MEDS: SERTRALINE 100MG TABLET 100 MG PO (08:23)
[2024-02-26] MEDS: ASPIRIN 81MG CHEWABLE TABLET 81 MG PO (08:23)
[2024-02-26] MEDS: NYSTATIN TOPICAL POWDER 30GM TP ×2 (08:24→20:39)
[2024-02-26] MEDS: POTASSIUM CHLORIDE 20MEQ TAB 20 MEQ PO ×3 (08:24→20:35)
[2024-02-26] MEDS: LORazepam 0.5MG TABLET 0.25 MG PO ×2 (08:25→20:35)
--- NOTE | 2024-02-26 08:55 | P.PN_ITS ---
Subjective *Date: 02/26/24 *Time: 08:55 Interval history: Patient did well overnight. Tolerating p.o. intake. No nausea or vomiting. Having daily bowel movements. Urine clear in Chowdary. Urine culture still pending. No fever overnight. Continues to have tremor, at baseline. Medical Exam Vital signs and Labs for Last 24 Hours: Vital Signs Temp Pulse Resp BP Pulse Ox O2 Del Method 02/26/24 08:00 99 F 93 H 17 91/64 L 99 Room Air 02/26/24 06:48 Room Air 02/26/24 05:00 Room Air 02/26/24 04:00 98.1 F 80 16 100/60 L 94 L Room Air 02/26/24 02:54 Room Air 02/26/24 01:00 Room Air 02/25/24 23:00 Room Air 02/25/24 21:00 Room Air 02/25/24 20:00 Room Air 02/25/24 20:00 98.1 F 85 18 94/58 L 100 Room Air 02/25/24 18:45 Room Air 02/25/24 17:00 Room Air 02/25/24 16:00 97.9 F 75 18 107/58 L 94 L Room Air 02/25/24 15:00 Room Air 02/25/24 13:00 Room Air 02/25/24 11:00 Room Air 02/25/24 09:00 Room Air Intake and Output 02/25/24 02/26/24 02/26/24 23:59 07:59 15:59 Intake Total 1040 / 2120 Output Total 500 / 1400 550 / 550 Balance 540 / 720 -550 / -550 Intake: Intake, Oral Amount 840 / 1770 Intake, Total IV Amount 200 / 350 Levofloxacin/D5w 750 mg/150 ml 150 / 300 750 mg In 150 ml @ 100 mls/hr IV Q24H [facility] Rx#:[id number] Magnesium Sulfate in Water 2 gm 50 / 50 In 50 ml @ 50 mls/hr IV ONCE ONE Rx#:[id number] Output: Output, Urine Amount 0 / 900 550 / 550 Output, Urine Amount (Catheter) 500 / 500 Chowdary 500 / 500 Other: Number of Unmeasured Voids 0 0 Number of Bowel Movements 1 Weight 65.572 kg Patient Weight 02/26/24 23:59 Weight 65.572 kg Laboratory Results - last 24 hr 02/25/24 13:56: POC Glucose 221 H 02/25/24 20:10: POC Glucose 161 H 02/26/24 05:33: WBC 6.0, RBC 3.01 L, Hgb 9.7 L, Hct 28.9 L, MCV 96.2, MCH 32.3 H , MCHC 33.6, RDW 15.4, Plt Count 226, MPV 7.9, Neut % (Auto) 49.6, Lymph % (Auto) 38.3, [place] % (Auto) 5.5, Eos % (Auto) 5.7, Baso % (Auto) 0.8, Neut # (Auto) 3.0, Lymph # (Auto) 2.3, [place] # (Auto) 0.3, Eos # (Auto) 0.3, Baso # (Auto) 0.1, Sodium 133 L, Potassium 3.7 D, Chloride 107, Carbon Dioxide 24, Anion Gap 5.7, BUN 16 D, Creatinine 0.80, Estimated Creat Clear 51, Estimated GFR 70, Est GFR ( Amer) 85, Glucose 133 H, Calcium 8.4, Magnesium 1.7 D, Total Bilirubin 0.3, AST 32 D, ALT 17, Alkaline Phosphatase 53, Total Protein 5.1 L, Albumin 2.9 L, Globulin 2.2, Albumin/Globulin Ratio 1.3 02/26/24 05:41: POC Glucose 141 H I & O for Labs for Last 24 Hours: Intake & Output 02/23/24 02/24/24 02/25/24 02/26/24 23:59 23:59 23:59 23:59 Intake Total 200 / 350 2120 / 2120 Output Total 1350 / 1350 1400 / 1400 550 / 550 Balance -1150 / -1000 720 / 720 -550 / -550 Weight 58.967 kg 64.31 kg 65.572 kg Microbiology Reports for the Last 24 Hours: Microbiology 02/24/24 12:22 Urine,Catheterized Urine Culture - Preliminary Constitutional: Present no acute distress, average body habitus and cooperative Head: Present atraumatic and normocephalic ENT: Present normal exam Respiratory: Present normal respiratory effort; Absent rhonchi, wheezes or crackles Cardiac: Present Reg Rate and Rhythm GI: Present soft and normal bowel sounds; Absent distention or tenderness Comment:: Chowdary catheter in place Extremities: Present normal inspection and full ROM; Absent edema Skin: Present intact; Absent erythema Neuro: Present Essential Tremor, Grossly Intact, alert, awake and moves all extremities Comment:: Oriented to self only Assessment and Plan *Assessment and plan (1) UTI (urinary tract infection): Status: Acute Category: Medical Code(s): N39.0 - Urinary tract infection, site not specified (2) KRISTIE (acute kidney injury): Status: Resolved Category: Medical Code(s): N17.9 - Acute kidney failure, unspecified (3) Urinary retention: Status: Resolved Category: Medical Code(s): R33.9 - Retention of urine, unspecified (4) Hypokalemia: Status: Acute Category: Medical Code(s): E87.6 - Hypokalemia (5) Weakness: Status: Acute Category: Medical Code(s): R53.1 - Weakness (6) Anemia: Status: Acute Category: Medical Code(s): D64.9 - Anemia, unspecified (7) Diabetes mellitus, type 2: Status: Acute Qualifiers: Diabetes mellitus [facility] insulin use: without terminal block assembler use Diabetes mellitus complication status: with other specified complication Qualified Code(s): E11.69 - Type 2 diabetes mellitus with other specified complication Category: Medical Code(s): E11.9 - Type 2 diabetes mellitus without complications (8) Candidal dermatitis: Status: Acute Category: Medical Code(s): B37.2 - Candidiasis of skin and nail (9) Hypertension: Status: Acute Category: Medical Code(s): I10 - Essential (primary) hypertension (10) Anxiety: Status: Chronic Category: Medical Code(s): F41.9 - Anxiety disorder, unspecified (11) Respiratory alkalosis: Status: Acute Category: Medical Code(s): E87.3 - Alkalosis Plan 73-year-old female with PMHx of insulin-dependent diabetes, [facility] Was [facility] by [facility] to the ER for decreased p.o. intake and concern for urinary retention. Patient complaining some abdominal discomfort. Workup in the ER showing concern for UTI and KRISTIE. Medicine consulted for admission and further management. Discussed case with ER, request admission due to urinary retention, KRISTIE, UTI, and inability to return back to [facility]. Medicine agreed to admit for further management. Admitted for observation. Case management consulted and assisting with evaluation of patient's guardianship status. Needs long-term care. Anticipate prolonged admission due to patient's clinical condition, inability to make decisions for herself, and need for long-term placement. Tolerating antibiotics. Showing clinical improvement. Problems addressed as follows: KRISTIE UTI -White cell count normal at 6.0. Urine grossly abnormal on admission with 2+ leuk esterase, positive for nitrate, 1+ bacteria. 20-50 white cells per high- powered field. -Continue levofloxacin 750 mg daily, transition to p.o. due to loss of IV.; Urine culture pending -Chowdary catheter in place, will need to remain in place due to retention -Creatinine 0.8, BUN 16 this morning on labs. Tolerating p.o. fluids. -Labs ordered for twice weekly. Next labs ordered for Friday -Sodium 133, potassium 3.7, magnesium 1.7. Continue oral supplementation of potassium and magnesium Respiratory alkalosis: Resolved Anxiety: Continue BuSpar 10 mg twice daily, Ativan 0.25 mg twice daily, and Zoloft 100 mg daily Sinus tachycardia: Improved, continue home metoprolol tartrate 25 mg twice daily Continue multivitamin with iron Urinary retention: - Patient's urinary retention concerning for differential as follows: detrusor underactivity, bladder neck obstruction, dysfunctional voiding, medication side effect, or neurologic disorder. Unclear etiology. Will refer to urology as an outpatient. - Will continue tamsulosin 0.4 mg twice daily. - Given patient's psychiatric history, unable to stop SSRI at this time and benzos. This complicates her retention. Will avoid anticholinergic medications. - Chowdary catheter to remain in place. Unable to discharge to her [facility] due to catheter. Needing placement. Hx of NIDDM: A1c 4.9 during last admission. Fingerstick glucose above 200 yesterday. Resume metformin 500 mg orally once daily Glucose 133 on morning labs. PLOV for dvt ppx protonix Full code regular diet PT and OT working with patient. Case management assisting with decision making capacity/potential guardianship for referral to rehab.
[2024-02-26] MEDS: levoFLOXacin 750 MG TABLET PO (11:46)
[2024-02-26 16:19] VITALS: BP 106/58; PULSE 67; RESP 17; TEMP 37; O2SAT 98
--- NOTE | 2024-02-26 16:43 | PC.NURSE ---
Pt is A&O x2. She is currently sitting up in her chair eating dinner. Has ambulated to BR and in hallway this shift. Tolerated well. Has had a shower this afternoon. 2 BMs this shift. F/C DC @ 1500. New orders received to straight cath Q6 Hr per MD Coats. Will consult on Friday. VSS. Safety measures in place.
[2024-02-26] MEDS: PRENATAL MULTIVITAMIN W/IRON 1 EACH PO (17:01)
[2024-02-26 20:00] VITALS: BP 108/60; PULSE 90; RESP 18; TEMP 36.6; O2SAT 100
--- NOTE | 2024-02-27 03:53 | PC.NURSE ---
Pt is alert to self and currently tolerating RA well. Pt has confusion and tends to repeat herself. Pt tremors remain but have improve slightly. Pt has slept well for the majority of this shift after taking HS meds. Pt denies pain and has had no acute changes this shift. Pt bed alarm is active and set.
[2024-02-27 04:00] VITALS: BP 111/57; PULSE 78; RESP 18; TEMP 36.7; O2SAT 99; BMI 26.5
[2024-02-27] MEDS: METFORMIN 500MG TABLET 500 MG PO (06:47)
[2024-02-27 07:42] VITALS: BP 122/61; PULSE 81; RESP 20; TEMP 37.3; O2SAT 95
--- NOTE | 2024-02-27 08:17 | P.PN_ITS ---
Subjective *Date: 02/27/24 *Time: 08:17 Interval history: No acute events overnight. Stable on room air. Tolerating in and out cathing Medical Exam Vital signs and Labs for Last 24 Hours: Vital Signs Temp Pulse Resp BP Pulse Ox O2 Del Method 02/27/24 07:42 99.1 F 81 20 122/61 95 Room Air 02/27/24 06:32 Room Air 02/27/24 04:33 Room Air 02/27/24 04:00 98.1 F 78 18 111/57 L 99 Room Air 02/27/24 03:00 Room Air 02/27/24 00:53 Room Air 02/26/24 23:00 Room Air 02/26/24 20:47 Room Air 02/26/24 20:00 97.9 F 90 18 108/60 L 100 Room Air 02/26/24 19:36 Room Air 02/26/24 19:00 Room Air 02/26/24 17:00 Room Air 02/26/24 16:19 98.6 F 67 17 106/58 L 98 Room Air 02/26/24 15:00 Room Air 02/26/24 12:57 Room Air 02/26/24 10:53 Room Air 02/26/24 09:00 Room Air Intake and Output 02/26/24 02/27/24 02/27/24 23:59 07:59 15:59 Intake Total 480 / 1700 510 / 510 Output Total 200 / 750 700 / 700 Balance 280 / 950 -190 / -190 Intake: Intake, Oral Amount 480 / 1700 510 / 510 Output: Output, Urine Amount 200 / 200 Output, Urine Amount (Catheter) 200 / 200 500 / 500 [place] 200 / 200 500 / 500 Other: Number of Unmeasured Voids 1 Number of Bowel Movements 2 1 Weight 67.948 kg Patient Weight 02/27/24 23:59 Weight 67.948 kg I & O for Labs for Last 24 Hours: Intake & Output 02/24/24 02/25/24 02/26/24 02/27/24 23:59 23:59 23:59 23:59 Intake Total 200 / 350 2120 / 2120 1460 / 1700 510 / 510 Output Total 1350 / 1350 1400 / 1400 750 / 750 700 / 700 Balance -1150 / -1000 720 / 720 710 / 950 -190 / -190 Weight 58.967 kg 64.31 kg 65.572 kg 67.948 kg Microbiology Reports for the Last 24 Hours: Microbiology 02/24/24 12:22 Urine,Catheterized Urine Culture - Final Proteus mirabilis Constitutional: Present no acute distress, average body habitus and cooperative Head: Present atraumatic and normocephalic ENT: Present normal exam Respiratory: Present normal respiratory effort; Absent rhonchi, wheezes or crackles Cardiac: Present Reg Rate and Rhythm GI: Present soft and normal bowel sounds; Absent distention or tenderness Extremities: Present normal inspection and full ROM; Absent edema Skin: Present intact; Absent erythema Neuro: Present Essential Tremor, Grossly Intact, alert, awake and moves all extremities Comment:: Oriented to self only Assessment and Plan *Assessment and plan (1) UTI (urinary tract infection): Status: Acute Category: Medical Code(s): N39.0 - Urinary tract infection, site not specified (2) KRISTIE (acute kidney injury): Status: Resolved Category: Medical Code(s): N17.9 - Acute kidney failure, unspecified (3) Urinary retention: Status: Resolved Category: Medical Code(s): R33.9 - Retention of urine, unspecified (4) Hypokalemia: Status: Acute Category: Medical Code(s): E87.6 - Hypokalemia (5) Weakness: Status: Acute Category: Medical Code(s): R53.1 - Weakness (6) Anemia: Status: Acute Category: Medical Code(s): D64.9 - Anemia, unspecified (7) Diabetes mellitus, type 2: Status: Acute Qualifiers: Diabetes mellitus prison insulin use: without buttermaker helper use Diabetes mellitus complication status: with other specified complication Qualified Code(s): E11.69 - Type 2 diabetes mellitus with other specified complication Category: Medical Code(s): E11.9 - Type 2 diabetes mellitus without complications (8) Candidal dermatitis: Status: Acute Category: Medical Code(s): B37.2 - Candidiasis of skin and nail (9) Hypertension: Status: Acute Category: Medical Code(s): I10 - Essential (primary) hypertension (10) Anxiety: Status: Chronic Category: Medical Code(s): F41.9 - Anxiety disorder, unspecified (11) Respiratory alkalosis: Status: Acute Category: Medical Code(s): E87.3 - Alkalosis Plan 73-year-old female with PMHx of insulin-dependent diabetes, resident from [facility], [place]. Was brought by EMS to the ER for decreased p.o. intake and concern for urinary retention. Patient complaining some abdominal discomfort. Workup in the ER showing concern for UTI and KRISTIE. Medicine consulted for admission and further management. Discussed case with ER, request admission due to urinary retention, KRISTIE, UTI, and inability to return back to her personal-retirement. Medicine agreed to admit for further management. Admitted for observation. Case management consulted and assisting with evaluation of patient's guardianship status. Needs long-term care. Anticipate prolonged admission due to patient's clinical condition, inability to make decisions for herself, and need for long-term placement. Tolerating antibiotics. Showing clinical improvement. Problems addressed as follows: KRISTIE UTI -UTI due to Proteus mirabilis. Sensitive to levofloxacin. Will complete 5 days of antibiotics total. -Urology consulted, they will see the patient Friday. Discussed case with them, recommend In-N-Out cathing for now. Removal of Chowdary. Further recommendations pending their eval on Friday. -Labs ordered for every 72 hours. Will obtain labs in the morning. Anxiety: Continue BuSpar 10 mg twice daily, Ativan 0.25 mg twice daily, and Zoloft 100 mg daily Sinus tachycardia: Improved, continue home metoprolol tartrate 25 mg twice daily Continue multivitamin with iron Urinary retention: - Patient's urinary retention concerning for differential as follows: detrusor underactivity, bladder neck obstruction, dysfunctional voiding, medication side effect, or neurologic disorder. Unclear etiology. Will refer to urology as an outpatient. - Will continue tamsulosin 0.4 mg twice daily. - Given patient's psychiatric history, unable to stop SSRI at this time and benzos. This complicates her retention. Will avoid anticholinergic medications. -Urology to evaluate on Friday. In the meantime, transitioned to intermittent in and out cathing. Having episodes of voiding independently but not completely emptying bladder. Hx of NIDDM: A1c 4.9 during last admission. Fingerstick glucose above 200 yesterday. Resume metformin 500 mg orally once daily PLOV for dvt ppx protonix Full code regular diet PT and OT working with patient. Case management assisting with decision making capacity/potential guardianship for referral to rehab.
[2024-02-27] MEDS: ENOXAPARIN 40MG/0.4ML SYRINGE 40 MG SQ (08:37)
[2024-02-27] MEDS: TAMSULOSIN 0.4MG CAPSULE 0.400000000000000022 MG PO ×2 (08:37→20:13)
[2024-02-27] MEDS: LORazepam 0.5MG TABLET 0.25 MG PO ×2 (08:37→20:13)
[2024-02-27] MEDS: METOPROLOL TARTRATE 25MG TABLET 25 MG PO ×2 (08:38→20:13)
[2024-02-27] MEDS: BUSPIRONE HCL 10 MG TABLET PO ×2 (08:38→20:13)
[2024-02-27] MEDS: MAGNESIUM OXIDE 400MG TABLET 400 MG PO (08:38)
[2024-02-27] MEDS: FUROSEMIDE 40 MG TABLET PO (08:38)
[2024-02-27] MEDS: NYSTATIN TOPICAL POWDER 30GM TP ×2 (08:38→20:14)
[2024-02-27] MEDS: SERTRALINE 100MG TABLET 100 MG PO (08:38)
[2024-02-27] MEDS: ASPIRIN 81MG CHEWABLE TABLET 81 MG PO (08:38)
[2024-02-27] MEDS: FAMOTIDINE 20MG TABLET 20 MG PO ×2 (08:38→20:13)
[2024-02-27] MEDS: levoFLOXacin 750 MG TABLET PO (11:23)
[2024-02-27 11:31] VITALS: BP 101/49; PULSE 87; RESP 18; TEMP 36.7; O2SAT 92
[2024-02-27 15:55] VITALS: BP 105/52; PULSE 79; RESP 18; TEMP 36.6; O2SAT 97
[2024-02-27] MEDS: PRENATAL MULTIVITAMIN W/IRON 1 EACH PO (17:06)
[2024-02-27 20:00] VITALS: BP 106/74; PULSE 75; RESP 18; TEMP 36.6; O2SAT 94; BMI 26.5
[2024-02-28 04:00] VITALS: BP 118/63; PULSE 84; RESP 16; TEMP 36.8; O2SAT 99; BMI 26.5
--- NOTE | 2024-02-28 04:23 | PC.NURSE ---
pt alert to self, has rested well through the shift. room air. no iv access. pt voided 600 in toilet per tech. bed alarm on.
[2024-02-28] MEDS: METFORMIN 500MG TABLET 500 MG PO (06:14)
[2024-02-28 06:56] LABS: Basophils # 0.1 K/mm3 (0-0.2); Basophils % 1.1 % (0.1-2.0); Eosinophils # 0.5 K/mm3 (0.0-0.4); Eosinophils % 7.6 % (0.1-12.0); Hematocrit 30.2 % (37.0-47.0); Hemoglobin 9.8 g/dL (12.2-16.2); Lymphocytes # 2.6 K/mm3 (0.7-4.5); Lymphocytes % 43.3 % (10-50); Mean Corpuscular HGB Conc 32.5 g/dL (31.8-35.4); Mean Corpuscular Hemoglobin 31.7 pg (27.0-31.2); Mean Corpuscular Volume 97.4 fl (81-99); Mean Platelet Volume 8.7 fl (7.4-10.4); Monocytes # 0.3 K/mm3 (0.1-1.0); Monocytes % 4.8 % (1.7-9.3); Neutrophils # 2.6 K/mm3 (1.8-7.8); Neutrophils % 43.2 % (37.0-80.0); Platelet Count 211 K/mm3 (142-424); Red Cell Distribution Width 15.4 % (11.5-17.5); White Blood Count 5.9 K/mm3 (4.8-10.8)
[2024-02-28 07:11] LABS: Chloride 103 mmol/L (98-107); Sodium 135 mmol/L (136-145)
[2024-02-28 07:12] LABS: Potassium 4.5 mmoL/L (3.5-5.1)
[2024-02-28 07:14] LABS: Alanine Aminotransferase 22 U/L (12-78); Alkaline Phosphatase 50 U/L (38-126); Anion Gap 9.5 mEq/L (5-15); Aspartate Amino Transferase 28 U/L (14-36); Blood Urea Nitrogen 9 mg/dl (7-17); Carbon Dioxide 27 mmol/L (22.0-30.0); Creatinine Clearance Estimated 53 mL/min (50-200); Estimated Glomerular Filt Rate 61 ml/min (>60); GFR (African American) 74 ML/MIN (>60)
[2024-02-28 07:15] LABS: Albumin Level 3.1 g/dl (3.5-5.0); Albumin/Globulin Ratio 1.3 (1.1-1.8); Calcium 9.4 mg/dl (8.4-10.2); Globulin 2.3 g/dL (1.3-3.2); Glucose 147 mg/dl (74-100); Magnesium 1.6 mg/dl (1.6-2.3); Total Protein,Serum 5.4 g/dl (6.3-8.2)
[2024-02-28 07:21] LABS: Bilirubin,Total 0.1 mg/dl (0.2-1.3)
[2024-02-28 08:00] VITALS: BP 95/65; PULSE 78; RESP 18; TEMP 36.6; O2SAT 99
[2024-02-28] MEDS: ENOXAPARIN 40MG/0.4ML SYRINGE 40 MG SQ (08:05)
[2024-02-28] MEDS: TAMSULOSIN 0.4MG CAPSULE 0.400000000000000022 MG PO ×2 (08:07→20:12)
[2024-02-28] MEDS: ASPIRIN 81MG CHEWABLE TABLET 81 MG PO (08:07)
[2024-02-28] MEDS: FUROSEMIDE 40 MG TABLET PO (08:07)
[2024-02-28] MEDS: METOPROLOL TARTRATE 25MG TABLET 25 MG PO ×2 (08:07→20:13)
[2024-02-28] MEDS: FAMOTIDINE 20MG TABLET 20 MG PO ×2 (08:08→20:13)
[2024-02-28] MEDS: BUSPIRONE HCL 10 MG TABLET PO ×2 (08:08→20:13)
[2024-02-28] MEDS: SERTRALINE 100MG TABLET 100 MG PO (08:08)
[2024-02-28] MEDS: MAGNESIUM OXIDE 400MG TABLET 400 MG PO ×2 (08:08→20:12)
[2024-02-28] MEDS: LORazepam 0.5MG TABLET 0.25 MG PO ×2 (08:10→20:13)
[2024-02-28] MEDS: NYSTATIN TOPICAL POWDER 30GM TP ×2 (08:13→20:12)
--- NOTE | 2024-02-28 08:24 | P.PN_ITS ---
Subjective *Date: 02/28/24 *Time: 14:02 Interval history: No events overnight. Tolerating p.o. intake. Did have some mild nausea yesterday, responded to Zofran. Voiding independently. Less than 100 cc residual urine with in and out cathing twice daily. Afebrile, on room air. Medical Exam Vital signs and Labs for Last 24 Hours: Vital Signs Temp Pulse Resp BP Pulse Ox O2 Del Method 02/28/24 06:44 Room Air 02/28/24 05:00 Room Air 02/28/24 04:00 98.2 F 84 16 118/63 99 Room Air 02/28/24 03:00 Room Air 02/28/24 01:00 Room Air 02/27/24 23:00 Room Air 02/27/24 21:00 Room Air 02/27/24 20:00 97.9 F 75 18 106/74 L 94 L Room Air 02/27/24 20:00 Room Air 02/27/24 18:10 Room Air 02/27/24 17:00 Room Air 02/27/24 15:55 97.9 F 79 18 105/52 L 97 Room Air 02/27/24 15:00 Room Air 02/27/24 13:00 Room Air 02/27/24 11:31 98.0 F 87 18 101/49 L 92 L Room Air 02/27/24 11:00 Room Air 02/27/24 09:00 Room Air Intake and Output 02/27/24 02/28/24 02/28/24 23:59 07:59 15:59 Intake Total 1100 / 2360 250 / 250 Output Total 1100 / 2700 1000 / 1000 Balance 0 / -340 -750 / -750 Intake: Intake, Oral Amount 1100 / 2360 250 / 250 Output: Output, Urine Amount 1000 / 2100 1000 / 1000 Output, Urine Amount (Catheter) 100 / 600 Straight 100 / 100 Other: Number of Voids 1 Number of Unmeasured Voids 1 0 Number of Bowel Movements 1 1 Weight 67.948 kg 67.9 kg Patient Weight 02/28/24 23:59 Weight 67.9 kg Laboratory Results - last 24 hr 02/28/24 06:20: WBC 5.9, RBC 3.10 L, Hgb 9.8 L, Hct 30.2 L, MCV 97.4, MCH 31.7 H , MCHC 32.5, RDW 15.4, Plt Count 211, MPV 8.7, Neut % (Auto) 43.2, Lymph % (Auto) 43.3, [place] % (Auto) 4.8, Eos % (Auto) 7.6, Baso % (Auto) 1.1, Neut # (Auto) 2.6, Lymph # (Auto) 2.6, [place] # (Auto) 0.3, Eos # (Auto) 0.5 H, Baso # (Auto) 0.1, Sodium 135 L, Potassium 4.5 D, Chloride 103, Carbon Dioxide 27, Anion Gap 9.5, BUN 9 D, Creatinine 0.90, Estimated Creat Clear 53, Estimated GFR 61, Est GFR ( Amer) 74, Glucose 147 H, Calcium 9.4, Magnesium 1.6, Total Bilirubin 0.1 L, AST 28, ALT 22 D, Alkaline Phosphatase 50, Total Protein 5.4 L, Albumin 3.1 L, Globulin 2.3, Albumin/Globulin Ratio 1.3 I & O for Labs for Last 24 Hours: Intake & Output 02/25/24 02/26/24 02/27/24 02/28/24 23:59 23:59 23:59 23:59 Intake Total 2120 / 2120 1460 / 1700 2110 / 2360 250 / 250 Output Total 1400 / 1400 750 / 750 2700 / 2700 1000 / 1000 Balance 720 / 720 710 / 950 -590 / -340 -750 / -750 Weight 64.31 kg 65.572 kg 67.948 kg 67.9 kg Microbiology Reports for the Last 24 Hours: Microbiology 02/24/24 12:22 Urine,Catheterized Urine Culture - Final Proteus mirabilis Constitutional: Present no acute distress, average body habitus and cooperative Head: Present atraumatic and normocephalic ENT: Present normal exam Respiratory: Present normal respiratory effort; Absent rhonchi, wheezes or crackles Cardiac: Present Reg Rate and Rhythm GI: Present soft and normal bowel sounds; Absent distention or tenderness Extremities: Present normal inspection and full ROM; Absent edema Skin: Present intact; Absent erythema Neuro: Present Essential Tremor, Grossly Intact, alert, awake and moves all extremities Comment:: Oriented to self only Assessment and Plan *Assessment and plan (1) UTI (urinary tract infection): Status: Acute Category: Medical Code(s): N39.0 - Urinary tract infection, site not specified (2) KRISTIE (acute kidney injury): Status: Resolved Category: Medical Code(s): N17.9 - Acute kidney failure, unspecified (3) Urinary retention: Status: Resolved Category: Medical Code(s): R33.9 - Retention of urine, unspecified (4) Hypokalemia: Status: Acute Category: Medical Code(s): E87.6 - Hypokalemia (5) Weakness: Status: Acute Category: Medical Code(s): R53.1 - Weakness (6) Anemia: Status: Acute Category: Medical Code(s): D64.9 - Anemia, unspecified (7) Diabetes mellitus, type 2: Status: Acute Qualifiers: Diabetes mellitus supervisor doping insulin use: without supervisor doping use Diabetes mellitus complication status: with other specified complication Qualified Code(s): E11.69 - Type 2 diabetes mellitus with other specified complication Category: Medical Code(s): E11.9 - Type 2 diabetes mellitus without complications (8) Candidal dermatitis: Status: Acute Category: Medical Code(s): B37.2 - Candidiasis of skin and nail (9) Hypertension: Status: Acute Category: Medical Code(s): I10 - Essential (primary) hypertension (10) Anxiety: Status: Chronic Category: Medical Code(s): F41.9 - Anxiety disorder, unspecified (11) Respiratory alkalosis: Status: Acute Category: Medical Code(s): E87.3 - Alkalosis (12) Hypomagnesemia: Status: Acute Category: Medical Code(s): E83.42 - Hypomagnesemia Plan 73-year-old female with PMHx of insulin-dependent diabetes[facility] Was [facility] to the ER for decreased p.o. intake and concern for urinary retention. Patient complaining some abdominal discomfort. Workup in the ER showing concern for UTI and KRISTIE. Medicine consulted for admission and further management. Discussed case with ER, request admission due to urinary retention, KRISTIE, UTI, and inability to return back to her personal-[facility]. Medicine agreed to admit for further management. Admitted for observation. Case management consulted and assisting with evaluation of patient's guardianship status. Needs long-term care. Anticipate prolonged admission due to patient's clinical condition, inability to make decisions for herself, and need for long-term placement. Tolerating antibiotics. Showing clinical improvement. Problems addressed as follows: KRISTIE UTI -UTI due to Proteus mirabilis. Sensitive to levofloxacin. Will complete 5 days of antibiotics total. -Urology consulted, they will see the patient Friday. Discussed case with them, recommend In-N-Out cathing for now, voiding independently. In and out cathing twice daily with less than 100 cc residual urine. Has to be reminded to go pee but will urinate and void completely when reminded. Further recommendations pending urology eval Friday -White cell count normal at 5.9 today. Kidney function normal BUN of 9, creatinine 0.9. Potassium 4.5. Magnesium 1.6. Will increase supplementation to 400 mg p.o. twice daily Anxiety: Continue BuSpar 10 mg twice daily, Ativan 0.25 mg twice daily, and Zoloft 100 mg daily Hypertension and sinus tachycardia: Continue metoprolol. Continue multivitamin with iron Urinary retention: - Patient's urinary retention concerning for differential as follows: detrusor underactivity, bladder neck obstruction, dysfunctional voiding, medication side effect, or neurologic disorder. Unclear etiology. -Urology to evaluate Friday -Continue tamsulosin 0.4 mg twice daily - Given patient's psychiatric history, unable to stop SSRI at this time and benzos. This complicates her retention. Will avoid anticholinergic medic ations. Hx of NIDDM: A1c 4.9 during last admission. Fingerstick glucose above 200 yesterday. Resume metformin 500 mg orally once daily PLOV for dvt ppx protonix Full code regular diet PT and OT working with patient. Case management assisting with decision making capacity/potential guardianship for referral to rehab.
[2024-02-28] MEDS: levoFLOXacin 750 MG TABLET PO (11:26)
--- NOTE | 2024-02-28 13:34 | PC.NURSE ---
Pt ambulated to bathroom with assistance, voided 400ml of urine. straight cath post void 100ml of uop.
[2024-02-28 16:00] VITALS: BP 95/53; PULSE 85; RESP 18; TEMP 37.4; O2SAT 100
[2024-02-28] MEDS: PRENATAL MULTIVITAMIN W/IRON 1 EACH PO (16:05)
[2024-02-28 19:46] VITALS: BP 104/54; PULSE 79; RESP 16; TEMP 36.8; O2SAT 96
[2024-02-29 04:00] VITALS: BP 112/55; PULSE 79; RESP 17; TEMP 36.8; O2SAT 93; BMI 26.1
[2024-02-29] MEDS: METFORMIN 500MG TABLET 500 MG PO (06:24)
[2024-02-29 08:00] VITALS: BP 96/60; PULSE 80; RESP 22; TEMP 36.6; O2SAT 92
[2024-02-29] MEDS: TAMSULOSIN 0.4MG CAPSULE 0.400000000000000022 MG PO ×2 (08:32→21:01)
[2024-02-29] MEDS: SERTRALINE 100MG TABLET 100 MG PO (08:32)
[2024-02-29] MEDS: METOPROLOL TARTRATE 25MG TABLET 25 MG PO ×2 (08:32→21:01)
[2024-02-29] MEDS: FAMOTIDINE 20MG TABLET 20 MG PO ×2 (08:32→21:00)
[2024-02-29] MEDS: MAGNESIUM OXIDE 400MG TABLET 400 MG PO ×2 (08:32→21:00)
[2024-02-29] MEDS: LORazepam 0.5MG TABLET 0.25 MG PO ×2 (08:32→21:01)
[2024-02-29] MEDS: NYSTATIN TOPICAL POWDER 30GM TP ×2 (08:32→21:01)
[2024-02-29] MEDS: ENOXAPARIN 40MG/0.4ML SYRINGE 40 MG SQ (08:32)
[2024-02-29] MEDS: FUROSEMIDE 40 MG TABLET PO (08:32)
[2024-02-29] MEDS: BUSPIRONE HCL 10 MG TABLET PO ×2 (08:32→21:01)
[2024-02-29] MEDS: ASPIRIN 81MG CHEWABLE TABLET 81 MG PO (08:32)
--- NOTE | 2024-02-29 08:59 | EXP.PHA.PN ---
Subjective *Date: 02/29/24 *Time: 08:59 Medical Exam Vital signs and Labs for Last 24 Hours: Vital Signs Temp Pulse Resp BP Pulse Ox O2 Del Method 02/29/24 08:00 Room Air 02/29/24 08:00 97.9 F 80 22 96/60 L 92 L Room Air 02/29/24 06:52 Room Air 02/29/24 05:00 Room Air 02/29/24 04:00 98.3 F 79 17 112/55 L 93 L Room Air 02/29/24 03:00 Room Air 02/29/24 01:00 Room Air 02/28/24 23:00 Room Air 02/28/24 21:00 Room Air 02/28/24 19:46 98.2 F 79 16 104/54 L 96 Room Air 02/28/24 19:26 Room Air 02/28/24 18:31 Room Air 02/28/24 17:00 Room Air 02/28/24 16:00 99.3 F 85 18 95/53 L 100 Room Air 02/28/24 14:54 Room Air 02/28/24 13:00 Room Air 02/28/24 11:00 Room Air 02/28/24 09:00 Room Air Intake and Output 02/28/24 02/29/24 02/29/24 23:59 07:59 15:59 Intake Total 240 / 2220 150 / 210 60 / 210 Output Total 400 / 2500 1450 / 1450 0 / 1450 Balance -160 / -280 -1300 / -1240 60 / -1240 Intake: Intake, Oral Amount 240 / 2220 150 / 210 60 / 210 Output: Output, Urine Amount 400 / 2400 1450 / 1450 0 / 1450 Other: Number of Voids 1 1 Number of Unmeasured Voids 0 0 1 Number of Bowel Movements 1 Weight 66.905 kg Patient Weight 02/29/24 23:59 Weight 66.905 kg Laboratory Results - last 24 hr 02/24/24 12:07: Serum Osmolality 306 H I & O for Labs for Last 24 Hours: Intake & Output 02/26/24 02/27/24 02/28/24 02/29/24 23:59 23:59 23:59 23:59 Intake Total 1460 / 1700 2110 / 2360 2070 / 2220 210 / 210 Output Total 750 / 750 2700 / 2700 2000 / 2500 1450 / 1450 Balance 710 / 950 -590 / -340 70 / -280 -1240 / -1240 Weight 65.572 kg 67.948 kg 67.9 kg 66.905 kg The patient's infection will respond to the chosen ABx?: Yes Is the patient receiving the right drug, dose, and route?: Yes Could a more targeted ABx be ordered?: No (UTI WITH PROTEUS MIRABILIS, SENS TO LEVAQUIN.)
--- NOTE | 2024-02-29 11:42 | P.PN_ITS ---
Subjective *Date: 02/29/24 *Time: 11:42 Interval history: No events overnight. Voiding well. Will get up and go to the bathroom, In-N-Out cath twice a day with less than 100 cc residual. No fevers overnight. Tolerating p.o. intake. Medical Exam Vital signs and Labs for Last 24 Hours: Vital Signs Temp Pulse Resp BP Pulse Ox O2 Del Method 02/29/24 11:00 Room Air 02/29/24 09:00 Room Air 02/29/24 08:00 Room Air 02/29/24 08:00 97.9 F 80 22 96/60 L 92 L Room Air 02/29/24 06:52 Room Air 02/29/24 05:00 Room Air 02/29/24 04:00 98.3 F 79 17 112/55 L 93 L Room Air 02/29/24 03:00 Room Air 02/29/24 01:00 Room Air 02/28/24 23:00 Room Air 02/28/24 21:00 Room Air 02/28/24 19:46 98.2 F 79 16 104/54 L 96 Room Air 02/28/24 19:26 Room Air 02/28/24 18:31 Room Air 02/28/24 17:00 Room Air 02/28/24 16:00 99.3 F 85 18 95/53 L 100 Room Air 02/28/24 14:54 Room Air 02/28/24 13:00 Room Air Intake and Output 02/28/24 02/29/24 02/29/24 23:59 07:59 15:59 Intake Total 240 / 2220 150 / 210 60 / 210 Output Total 400 / 2500 1450 / 1450 0 / 1450 Balance -160 / -280 -1300 / -1240 60 / -1240 Intake: Intake, Oral Amount 240 / 2220 150 / 210 60 / 210 Output: Output, Urine Amount 400 / 2400 1450 / 1450 0 / 1450 Other: Number of Voids 1 1 Number of Unmeasured Voids 0 0 1 Number of Bowel Movements 1 Weight 66.905 kg Patient Weight 02/29/24 23:59 Weight 66.905 kg Laboratory Results - last 24 hr 02/24/24 12:07: Serum Osmolality 306 H I & O for Labs for Last 24 Hours: Intake & Output 02/26/24 02/27/24 02/28/2409/24 23:59 23:59 23:59 23:59 Intake Total 1460 / 1700 2110 / 2360 2070 / 2220 210 / 210 Output Total 750 / 750 2700 / 2700 2000 / 2500 1450 / 1450 Balance 710 / 950 -590 / -340 70 / -280 -1240 / -1240 Weight 65.572 kg 67.948 kg 67.9 kg 66.905 kg Constitutional: Present no acute distress, average body habitus and cooperative Head: Present atraumatic and normocephalic ENT: Present normal exam Respiratory: Present normal respiratory effort; Absent rhonchi, wheezes or crackles Cardiac: Present Reg Rate and Rhythm GI: Present soft and normal bowel sounds; Absent distention or tenderness Extremities: Present normal inspection and full ROM; Absent edema Skin: Present intact; Absent erythema Neuro: Present Essential Tremor, Grossly Intact, alert, awake and moves all extremities Comment:: Oriented to self only Assessment and Plan *Assessment and plan (1) UTI (urinary tract infection): Status: Acute Category: Medical Code(s): N39.0 - Urinary tract infection, site not specified (2) KRISTIE (acute kidney injury): Status: Resolved Category: Medical Code(s): N17.9 - Acute kidney failure, unspecified (3) Urinary retention: Status: Resolved Category: Medical Code(s): R33.9 - Retention of urine, unspecified (4) Hypokalemia: Status: Acute Category: Medical Code(s): E87.6 - Hypokalemia (5) Weakness: Status: Acute Category: Medical Code(s): R53.1 - Weakness (6) Anemia: Status: Acute Category: Medical Code(s): D64.9 - Anemia, unspecified (7) Diabetes mellitus, type 2: Status: Acute Qualifiers: Diabetes mellitus [facility] insulin use: without terminal superintendent use Diabetes mellitus complication status: with other specified complication Qualified Code(s): E11.69 - Type 2 diabetes mellitus with other specified complication Category: Medical Code(s): E11.9 - Type 2 diabetes mellitus without complications (8) Candidal dermatitis: Status: Acute Category: Medical Code(s): B37.2 - Candidiasis of skin and nail (9) Hypertension: Status: Acute Category: Medical Code(s): I10 - Essential (primary) hypertension (10) Anxiety: Status: Chronic Category: Medical Code(s): F41.9 - Anxiety disorder, unspecified (11) Respiratory alkalosis: Status: Acute Category: Medical Code(s): E87.3 - Alkalosis (12) Hypomagnesemia: Status: Acute Category: Medical Code(s): E83.42 - Hypomagnesemia Plan 73-year-old female with PMHx of insulin-dependent diabetes, resident [facility], [place]. Was brought by EMS to the ER for decreased p.o. intake and concern for urinary retention. Patient complaining some abdominal discomfort. Workup in the ER showing concern for UTI and KRISTIE. Medicine consulted for admission and further management. Discussed case with ER, request admission due to urinary retention, KRISTIE, UTI, and inability to return back to her [facility]. Medicine agreed to admit for further management. Admitted for observation. Case management consulted and assisting with evaluation of patient's guardianship status. Needs long-term care. Anticipate prolonged admission due to patient's clinical condition, inability to make decisions for herself, and need for long-term placement. Tolerating antibiotics. Showing clinical improvement. Problems addressed as follows: KRISTIE UTI -UTI due to Proteus mirabilis. Sensitive to levofloxacin. Completed 5 days of antibiotics. -Urology consulted, they will see the patient Friday. Discussed case with them, recommend In-N-Out cathing for now, voiding independently. In and out cathing twice daily with less than 100 cc residual urine. Has to be reminded to go pee but will urinate and void completely when reminded. Further recommendations pending urology eval Friday -Lab holiday today. Will obtain labs again on Friday. Continue magnesium supplementation 40 mg p.o. twice daily Anxiety: Continue BuSpar 10 mg twice daily, Ativan 0.25 mg twice daily, and Zoloft 100 mg daily Hypertension and sinus tachycardia: Continue metoprolol. Continue multivitamin with iron Urinary retention: - Patient's urinary retention concerning for differential as follows: detrusor underactivity, bladder neck obstruction, dysfunctional voiding, medication side effect, or neurologic disorder. Unclear etiology. -Urology to evaluate Friday -Continue tamsulosin 0.4 mg twice daily - Given patient's psychiatric history, unable to stop SSRI at this time and benzos. This complicates her retention. Will avoid anticholinergic medications. Hx of NIDDM: A1c 4.9 during last admission. Fingerstick glucose above 200 yesterday. Resume metformin 500 mg orally once daily PLOV for dvt ppx protonix Full code regular diet PT and OT working with patient. Case management assisting with decision making capacity/potential guardianship for referral to rehab.
[2024-02-29 11:49] VITALS: BP 99/60; PULSE 76; RESP 21; TEMP 36.9; O2SAT 100
[2024-02-29 16:00] VITALS: BP 90/59; PULSE 84; RESP 18; TEMP 36.8; O2SAT 93
[2024-02-29] MEDS: PRENATAL MULTIVITAMIN W/IRON 1 EACH PO (17:00)
[2024-02-29 20:00] VITALS: BP 107/53; PULSE 86; RESP 17; TEMP 36.6; O2SAT 100
[2024-03-01 04:00] VITALS: BP 109/60; PULSE 85; RESP 16; TEMP 37.3; O2SAT 98; BMI 26.3
--- NOTE | 2024-03-01 05:24 | PC.NURSE ---
Addendum entered by Radha Dunaway RN 03/01/24 06:59: Residual 50ml after 500ml void. Original Note: Pt sleeping soundly as she has throughout the night. I/O cath X 1 for post void residual with only 50 ml after 50 ml void.
[2024-03-01] MEDS: METFORMIN 500MG TABLET 500 MG PO (06:02)
[2024-03-01 08:00] VITALS: BP 118/54; PULSE 78; RESP 20; TEMP 36.8; O2SAT 99
[2024-03-01] MEDS: ONDANSETRON 4MG ODT 4 MG SL (08:27)
--- NOTE | 2024-03-01 08:49 | EXP.MED.CON ---
History of Present Illness *Admission Date: 02/24/24 *History of present illness: Ms. Montes is a pleasant 73-year-old female oriented to self only[facility]. Was recently admitted for a prolonged course due to debility and need for guardianship and placement. During her course she rehab and was able to transition back to her personal-assisted due to independent voiding, removal of catheter, and ability to ambulate with walker. She presented to the ER today however due to decreased p.o. intake and decreased urine output. Initial presentation to the ER with workup including urinalysis and basic labs. Patient found to have urinary retention with almost a liter of output with placement of Chowdary. Urine concerning for UTI. Labs showing KRISTIE. Given presence of catheter, patient unable to return back to her personal-assisted. She appears anxious at this time and is tremulous on exam. At baseline mentation. Medicine consulted for admission. On my evaluation, patient is afebrile and stable on room air. At baseline mentation. Knows my face but does not know my name. Knows who she is but is unsure where she is or why. Tolerating p.o. intake. Chowdary draining luann urine. Denies chest pain or shortness of breath. No nausea or vomiting. [facility] Disclaimer: The information contained in this section may have been updated after the patient was seen, as this information can be updated by other users. Medical History Diabetes mellitus, type 2 Social History Smoking Status: Never smoker alcohol intake: never current occupational status: other Travel in the last 8 weeks: None Exam Data for Last 24 hours Vital signs and Labs for Last 24 Hours: Temp Pulse Resp BP Pulse Ox O2 Del Method 98.3 F 78 20 118/54 L 99 Room Air 03/01/24 08:00 03/01/24 08:00 03/01/24 08:00 03/01/24 08:00 03/01/24 08:00 03/01/24 08:00 I & O for Last 24 hours: Intake & Output 02/27/24 02/28/24 02/29/24 03/01/24 23:59 23:59 23:59 23:59 Intake Total 2110 / 2360 2070 / 2220 1896 / 1896 120 / 120 Output Total 2700 / 2700 2000 / 2500 3300 / 3850 1850 / 1850 Balance -590 / -340 70 / -280 -1404 / -1954 -1730 / -1730 Weight 67.948 kg 67.9 kg 66.905 kg 67.313 kg Meds Home Medications and Allergies Home Medications Medication Instructions Recorded Confirmed Type buspirone 10 mg tablet 10 mg PO BID 11/20/23 02/25/24 History famotidine 20 mg tablet 20 mg PO BID 11/20/23 02/25/24 History sertraline 100 mg tablet 100 mg PO DAILY 11/20/23 02/25/24 History acetaminophen 650 mg 650 mg PO TID 01/10/24 02/25/24 History tablet,extended release (Tylenol 8 Hour) aspirin 81 mg chewable tablet 81 mg PO DAILY 01/10/24 02/25/24 History ergocalciferol (vitamin D2) 1,250 1,250 mcg PO TU 01/10/24 02/25/24 History mcg (50,000 unit) capsule (Vitamin D2) nystatin 100,000 unit/gram topical 1 applic topical BID 01/10/24 02/25/24 History powder furosemide 40 mg tablet 40 mg PO DAILY 30 days #30 tabs 01/18/24 02/25/24 Rx lorazepam 0.5 mg tablet 0.25 mg (1/2 x 0.5 mg) PO BID 30 02/13/24 02/25/24 Rx days #30 tabs magnesium oxide 400 mg (241.3 mg 400 mg PO DAILY 30 days #30 tabs 02/13/24 02/25/24 Rx magnesium) tablet metformin 500 mg tablet 500 mg PO BIDWMEAL 30 days #60 tabs 02/13/24 02/25/24 Rx tamsulosin 0.4 mg capsule 0.4 mg PO BID 30 days #60 caps 02/13/24 02/25/24 Rx metoprolol tartrate 25 mg tablet 25 mg PO BID 02/24/24 02/25/24 History vits no.130-ferrous fum 1 tab PO DAILY 02/24/24 02/25/24 History 27 mg iron-folic acid 800 mcg tablet ( Vitamin) New Prescriptions to Start Prescriptions: Allergies Allergy/AdvReac Type Severity Reaction Status Date / Time Penicillins Allergy Mild Verified 02/24/24 12:58 Results Labs 03/09/24 05:31 03/09/24 05:31 Labs: H & H 02/24/24 02/25/24 02/26/24 Range/Units 12:07 05:36 05:33 Hgb 12.5 10.1 L D 9.7 L (12.2-16.2) g/dL Hct 39.3 30.7 L 28.9 L (37.0-47.0) % 02/28/24 Range/Units 06:20 Hgb 9.8 L (12.2-16.2) g/dL Hct 30.2 L (37.0-47.0) % All other labs normal.
--- NOTE | 2024-03-01 08:56 | EXP.MED.CON ---
History of Present Illness *Admission Date: 02/24/24 *History of present illness: Urine Retention/Recurrent UTI: [facility] admitted patient in the hospital I was asked to consult and make recommendations for recurrent UTI prevention. A significant part of the recommendations are already underway as I see the patient this morning. Her most recent PVR is 50 cc. The patient went into AUR requiring a Chowdary Catheter during her first admission. Eventually she was given a trail at voiding and was able to discontinue the need for the Chowdary catheter. However, she was discharged and her chronic medical condition of failure to thrive and COPD necessitated re-admission. On re-admission she again was found to be in AUR and a Chowdary catheter was replaced. With the chronic bladder foreign body and institutionalized care she has been troubled with febrile urine infections. She is currently on a course of Levaquin for UTI. She has been placed on Flomax 0.[address] scan with infusion on 01/13 was negative, but she has a compression of T12. Spinal disc disease could be a contributing factor to the AUR. She has been infected of late with Proteus, although no renal stones are present. The Proteus is resistant to Macrobid but sensitive to Proloprim. Of caution, Proloprim is prone to the development of resistant UTI?s. On 03/15 her blood glucose was 141, although she does not carry a diagnosis of diabetes. Urologic Recommendations if in agreement by attending providers: 1) Discontinue the Chowdary catheter as already ordered 2) If the patient does not void by 6 hours, straight in and out cath. If the patient voids before the 6 hours in and out cath for a post-void residual. Set that sterile catheterization up for culture and sensitivity. 3) If the post -void residual is < 100 cc, then cath only for symptoms of AUR. 4) If the post-void residual is > 100 cc, then cath every 6 hours for residual until all residual urines for 2 days (8 caths events) are < 100 cc and then can discontinue cath events again. 5) Continue Flomax 0.2 mg ? hour after evening meal. Watch the fragile patient for orthostatic hypotension as she gets out of bed, etc. 6) Order Methenamine 500 mg P.O. twice a day. 7) Stop Levaquin has already been ordered for today 8) Order Ascorbic Acid 500 mg four times daily as tolerated. 9) Order Estrace vaginal cream using FINGER technique daily for 2 weeks and then three times weekly to help vaginal immunity and acidification to naturally prevent UTI. [facility] Disclaimer: The information contained in this section may have been updated after the patient was seen, as this information can be updated by other users. Medical History Diabetes mellitus, type 2 Social History Smoking Status: Never smoker alcohol intake: never current occupational status: other Travel in the last 8 weeks: None Exam Data for Last 24 hours Vital signs and Labs for Last 24 Hours: Temp Pulse Resp BP Pulse Ox O2 Del Method 98.3 F 78 20 118/54 L 99 Room Air 03/01/24 08:00 03/01/24 08:00 03/01/24 08:00 03/01/24 08:00 03/01/24 08:00 03/01/24 08:00 I & O for Last 24 hours: Intake & Output 02/27/24 02/28/24 02/29/24 03/01/24 23:59 23:59 23:59 23:59 Intake Total 2110 / 2360 2070 / 2220 1896 / 1896 120 / 120 Output Total 2700 / 2700 2000 / 2500 3300 / 3850 1850 / 1850 Balance -590 / -340 70 / -280 -1404 / -1954 -1730 / -1730 Weight 67.948 kg 67.9 kg 66.905 kg 67.313 kg Meds Home Medications and Allergies Home Medications Medication Instructions Recorded Confirmed Type buspirone 10 mg tablet 10 mg PO BID 11/20/23 02/25/24 History famotidine 20 mg tablet 20 mg PO BID 11/20/23 02/25/24 History sertraline 100 mg tablet 100 mg PO DAILY 11/20/23 02/25/24 History acetaminophen 650 mg 650 mg PO TID 01/10/24 02/25/24 History tablet,extended release (Tylenol 8 Hour) aspirin 81 mg chewable tablet 81 mg PO DAILY 01/10/24 02/25/24 History ergocalciferol (vitamin D2) 1,250 1,250 mcg PO TU 01/10/24 02/25/24 History mcg (50,000 unit) capsule (Vitamin D2) nystatin 100,000 unit/gram topical 1 applic topical BID 01/10/24 02/25/24 History powder furosemide 40 mg tablet 40 mg PO DAILY 30 days #30 tabs 01/18/24 02/25/24 Rx lorazepam 0.5 mg tablet 0.25 mg (1/2 x 0.5 mg) PO BID 30 02/13/24 02/25/24 Rx days #30 tabs magnesium oxide 400 mg (241.3 mg 400 mg PO DAILY 30 days #30 tabs 02/13/24 02/25/24 Rx magnesium) tablet metformin 500 mg tablet 500 mg PO BIDWMEAL 30 days #60 tabs 02/13/24 02/25/24 Rx tamsulosin 0.4 mg capsule 0.4 mg PO BID 30 days #60 caps 02/13/24 02/25/24 Rx metoprolol tartrate 25 mg tablet 25 mg PO BID 02/24/24 02/25/24 History vits no.130-ferrous fum 1 tab PO DAILY 02/24/24 02/25/24 History 27 mg iron-folic acid 800 mcg tablet ( Vitamin) New Prescriptions to Start Prescriptions: Allergies Allergy/AdvReac Type Severity Reaction Status Date / Time Penicillins Allergy Mild Verified 02/24/24 12:58 Results Labs 02/28/24 06:20 02/28/24 06:20 Labs: H & H 02/24/24 02/25/24 02/26/24 Range/Units 12:07 05:36 05:33 Hgb 12.5 10.1 L D 9.7 L (12.2-16.2) g/dL Hct 39.3 30.7 L 28.9 L (37.0-47.0) % 02/28/24 Range/Units 06:20 Hgb 9.8 L (12.2-16.2) g/dL Hct 30.2 L (37.0-47.0) % All other labs normal.
[2024-03-01] MEDS: TAMSULOSIN 0.4MG CAPSULE 0.400000000000000022 MG PO ×2 (09:21→21:55)
[2024-03-01] MEDS: FAMOTIDINE 20MG TABLET 20 MG PO ×2 (09:21→21:55)
[2024-03-01] MEDS: FUROSEMIDE 40 MG TABLET PO (09:21)
[2024-03-01] MEDS: MAGNESIUM OXIDE 400MG TABLET 400 MG PO ×2 (09:21→21:55)
[2024-03-01] MEDS: ENOXAPARIN 40MG/0.4ML SYRINGE 40 MG SQ (09:21)
[2024-03-01] MEDS: ASPIRIN 81MG CHEWABLE TABLET 81 MG PO (09:21)
[2024-03-01] MEDS: SERTRALINE 100MG TABLET 100 MG PO (09:21)
[2024-03-01] MEDS: LORazepam 0.5MG TABLET 0.25 MG PO ×2 (09:21→21:55)
[2024-03-01] MEDS: METOPROLOL TARTRATE 25MG TABLET 25 MG PO ×2 (09:21→21:55)
[2024-03-01] MEDS: BUSPIRONE HCL 10 MG TABLET PO ×2 (09:21→21:55)
[2024-03-01] MEDS: NYSTATIN TOPICAL POWDER 30GM TP ×2 (09:22→21:55)
--- NOTE | 2024-03-01 10:35 | EXP.ACUTE.PN ---
Subjective *Date: 03/01/24 *Time: 11:42 Interval history: Stable this morning on room air. Urology evaluated patient. Voiding well with reminders. Less than 100 cc went in and out cath. No nausea or vomiting. No fever. No complaints this morning Medical Exam Vital signs and Labs for Last 24 Hours: Vital Signs Temp Pulse Resp BP Pulse Ox O2 Del Method 03/01/24 08:00 98.3 F 78 20 118/54 L 99 Room Air 03/01/24 06:47 Room Air 03/01/24 05:00 Room Air 03/01/24 04:00 99.2 F 85 16 109/60 L 98 Room Air 03/01/24 03:00 Room Air 03/01/24 01:00 Room Air 02/29/24 23:00 Room Air 02/29/24 21:00 Room Air 02/29/24 20:00 Room Air 02/29/24 20:00 97.9 F 86 17 107/53 L 100 Room Air 02/29/24 18:42 Room Air 02/29/24 17:00 Room Air 02/29/24 16:00 98.2 F 84 18 90/59 L 93 L Room Air 02/29/24 15:00 Room Air 02/29/24 13:00 Room Air 02/29/24 11:49 98.4 F 76 21 99/60 L 100 Room Air 02/29/24 11:00 Room Air Intake and Output 02/29/24 03/01/24 03/01/24 23:59 07:59 15:59 Intake Total 676 / 1896 120 / 120 Output Total 600 / 3850 1850 / 1850 Balance 76 / -1954 -1850 / -1730 120 / -1730 Intake: Intake, Oral Amount 676 / 1896 120 / 120 Output: Output, Urine Amount 600 / 3850 1850 / 1850 Other: Number of Unmeasured Voids 0 0 Number of Bowel Movements 1 Weight 67.313 kg Patient Weight 03/01/24 23:59 Weight 67.313 kg I & O for Labs for Last 24 Hours: Intake & Output 02/27/24 02/28/24 02/29/24 03/01/24 23:59 23:59 23:59 23:59 Intake Total 2110 / 2360 2070 / 2220 1896 / 1896 120 / 120 Output Total 2700 / 2700 2000 / 2500 3300 / 3850 1850 / 1850 Balance -590 / -340 70 / -280 -1404 / -1954 -1730 / -1730 Weight 67.948 kg 67.9 kg 66.905 kg 67.313 kg Constitutional: Present no acute distress, average body habitus and cooperative Head: Present atraumatic and normocephalic ENT: Present normal exam Respiratory: Present normal respiratory effort; Absent rhonchi, wheezes or crackles Cardiac: Present Reg Rate and Rhythm GI: Present soft and normal bowel sounds; Absent distention or tenderness Extremities: Present normal inspection and full ROM; Absent edema Skin: Present intact; Absent erythema Neuro: Present Essential Tremor, Grossly Intact, alert, awake and moves all extremities Comment:: Oriented to self only Assessment and Plan *Assessment and plan (1) UTI (urinary tract infection): Status: Acute Category: Medical Code(s): N39.0 - Urinary tract infection, site not specified (2) KRISTIE (acute kidney injury): Status: Resolved Category: Medical Code(s): N17.9 - Acute kidney failure, unspecified (3) Urinary retention: Status: Resolved Category: Medical Code(s): R33.9 - Retention of urine, unspecified (4) Hypokalemia: Status: Acute Category: Medical Code(s): E87.6 - Hypokalemia (5) Weakness: Status: Acute Category: Medical Code(s): R53.1 - Weakness (6) Anemia: Status: Acute Category: Medical Code(s): D64.9 - Anemia, unspecified (7) Diabetes mellitus, type 2: Status: Acute Qualifiers: Diabetes mellitus retirement insulin use: without retirement use Diabetes mellitus complication status: with other specified complication Qualified Code(s): E11.69 - Type 2 diabetes mellitus with other specified complication Category: Medical Code(s): E11.9 - Type 2 diabetes mellitus without complications (8) Candidal dermatitis: Status: Acute Category: Medical Code(s): B37.2 - Candidiasis of skin and nail (9) Hypertension: Status: Acute Category: Medical Code(s): I10 - Essential (primary) hypertension (10) Anxiety: Status: Chronic Category: Medical Code(s): F41.9 - Anxiety disorder, unspecified (11) Respiratory alkalosis: Status: Acute Category: Medical Code(s): E87.3 - Alkalosis (12) Hypomagnesemia: Status: Acute Category: Medical Code(s): E83.42 - Hypomagnesemia Plan 73-year-old female with PMHx of insulin-dependent diabetes, resident [facility], [place]. Was brought by EMS to the ER for decreased p.o. intake and concern for urinary retention. Patient complaining some abdominal discomfort. Workup in the ER showing concern for UTI and KRISTIE. Medicine consulted for admission and further management. Discussed case with ER, request admission due to urinary retention, KRISTIE, UTI, and inability to return back to her personal[facility]. Medicine agreed to admit for further management. Admitted for observation. Case management consulted and assisting with evaluation of patient's guardianship status. Needs long-term care. Anticipate prolonged admission due to patient's clinical condition, inability to make decisions for herself, and need for long-term placement. Completed antibiotic course. Clinically stable. Problems addressed as follows: KRISTIE UTI -UTI due to Proteus mirabilis. Sensitive to levofloxacin. Completed 5 days of antibiotics. -Urology consulted, evaluated today. As patient is having less than 100 cc residual, can stop in and out cathing. Recommend initiating methenamine hippurate, ascorbic acid. -Lab holiday today. Will obtain labs in the morning, CBC, CMP, magnesium ordered. Continue magnesium supplementation 400 mg p.o. twice daily Anxiety: Continue BuSpar 10 mg twice daily, Ativan 0.25 mg twice daily, and Zoloft 100 mg daily Hypertension and sinus tachycardia: Continue metoprolol. Continue multivitamin with iron Urinary retention: Improving - Patient's urinary retention concerning for differential as follows: detrusor underactivity, bladder neck obstruction, dysfunctional voiding, medication side effect, or neurologic disorder. Unclear etiology. -Continue tamsulosin 0.4 mg twice daily - Given patient's psychiatric history, unable to stop SSRI at this time and benzos. This complicates her retention. Will avoid anticholinergic medications. Hx of NIDDM: A1c 4.9 during last admission. Fingerstick glucose above 200 yesterday. Resume metformin 500 mg orally once daily PLOV for dvt ppx protonix Full code regular diet PT and OT working with patient. Case management assisting with decision making capacity/potential guardianship for referral to rehab.
[2024-03-01 16:00] VITALS: BP 106/54; PULSE 75; RESP 18; TEMP 36.7; O2SAT 97
[2024-03-01] MEDS: PRENATAL MULTIVITAMIN W/IRON 1 EACH PO (18:08)
[2024-03-01 20:00] VITALS: BP 106/49; PULSE 67; RESP 18; TEMP 37.1; O2SAT 95
[2024-03-01] MEDS: ASCORBIC ACID 500MG TAB 500 MG PO (21:55)
[2024-03-02 04:00] VITALS: BP 109/50; PULSE 78; RESP 18; TEMP 36.8; O2SAT 96; BMI 26.6
[2024-03-02 06:58] LABS: Basophils % 0.5 % (0.1-2.0); Eosinophils # 0.3 K/mm3 (0.0-0.4); Eosinophils % 5.4 % (0.1-12.0); Hematocrit 28.9 % (37.0-47.0); Hemoglobin 9.5 g/dL (12.2-16.2); Lymphocytes # 2.4 K/mm3 (0.7-4.5); Lymphocytes % 46.3 % (10-50); Mean Corpuscular HGB Conc 32.9 g/dL (31.8-35.4); Mean Corpuscular Hemoglobin 32.1 pg (27.0-31.2); Mean Corpuscular Volume 97.5 fl (81-99); Mean Platelet Volume 8.7 fl (7.4-10.4); Monocytes # 0.4 K/mm3 (0.1-1.0); Monocytes % 6.9 % (1.7-9.3); Neutrophils # 2.1 K/mm3 (1.8-7.8); Neutrophils % 40.9 % (37.0-80.0); Platelet Count 208 K/mm3 (142-424); Red Blood Count 2.97 M/mm3 (4.20-5.40); Red Cell Distribution Width 15.5 % (11.5-17.5); White Blood Count 5.2 K/mm3 (4.8-10.8)
[2024-03-02 07:04] LABS: Chloride 104 mmol/L (98-107); Potassium 4.1 mmoL/L (3.5-5.1); Sodium 136 mmol/L (136-145)
[2024-03-02 07:07] LABS: Alanine Aminotransferase 22 U/L (12-78); Albumin Level 3.1 g/dl (3.5-5.0); Albumin/Globulin Ratio 1.3 (1.1-1.8); Alkaline Phosphatase 54 U/L (38-126); Anion Gap 11.1 mEq/L (5-15); Aspartate Amino Transferase 29 U/L (14-36); Bilirubin,Total 0.2 mg/dl (0.2-1.3); Blood Urea Nitrogen 8 mg/dl (7-17); Calcium 9.1 mg/dl (8.4-10.2); Carbon Dioxide 25 mmol/L (22.0-30.0); Creatinine Clearance Estimated 53 mL/min (50-200); Estimated Glomerular Filt Rate 70 ml/min (>60); GFR (African American) 85 ML/MIN (>60); Globulin 2.3 g/dL (1.3-3.2); Glucose 139 mg/dl (74-100); Total Protein,Serum 5.4 g/dl (6.3-8.2)
[2024-03-02 07:08] LABS: Magnesium 1.9 mg/dl (1.6-2.3)
[2024-03-02 07:44] VITALS: BP 96/53; PULSE 75; RESP 22; TEMP 36.5; O2SAT 100
[2024-03-02] MEDS: TAMSULOSIN 0.4MG CAPSULE 0.400000000000000022 MG PO ×2 (09:08→20:24)
[2024-03-02] MEDS: FUROSEMIDE 40 MG TABLET PO (09:08)
[2024-03-02] MEDS: ASCORBIC ACID 500MG TAB 500 MG PO ×2 (09:09→20:24)
[2024-03-02] MEDS: ASPIRIN 81MG CHEWABLE TABLET 81 MG PO (09:14)
[2024-03-02] MEDS: BUSPIRONE HCL 10 MG TABLET PO ×2 (09:14→20:24)
[2024-03-02] MEDS: METOPROLOL TARTRATE 25MG TABLET 25 MG PO ×2 (09:14→20:24)
[2024-03-02] MEDS: FAMOTIDINE 20MG TABLET 20 MG PO ×2 (09:14→20:24)
[2024-03-02] MEDS: ENOXAPARIN 40MG/0.4ML SYRINGE 40 MG SQ (09:15)
[2024-03-02] MEDS: MAGNESIUM OXIDE 400MG TABLET 400 MG PO ×2 (09:15→20:24)
[2024-03-02] MEDS: LORazepam 0.5MG TABLET 0.25 MG PO ×2 (09:15→20:24)
[2024-03-02] MEDS: METFORMIN 500MG TABLET 500 MG PO (09:15)
[2024-03-02] MEDS: SERTRALINE 100MG TABLET 100 MG PO (09:15)
[2024-03-02] MEDS: NYSTATIN TOPICAL POWDER 30GM TP ×2 (09:16→20:25)
[2024-03-02 09:45] VITALS: BP 125/73; PULSE 78; RESP 24; O2SAT 100
--- NOTE | 2024-03-02 09:48 | ECG_ITS ---
APPROVED REPORT Exam: Resting ECG HR:78 bpm ECG Measurements Heart Rate 78 AXES WI 143 P 45 QRSd 74 QRS 26 QT 369 T 33 QTc 402 Conclusion SINUS RHYTHM LOW QRS VOLTAGE IN PRECORDIAL LEADS [QRS DEFLECTION < 1.0 mV IN CHEST LEADS] BORDERLINE ECG UNCONFIRMED REPORT Electronically signed by : Umer Chiu MD 03/03/2024 15:03:39
[2024-03-02 10:48] LABS: Troponin I < 0.01 ng/ml (0.00-0.034)
[2024-03-02 16:00] VITALS: BP 90/47; PULSE 87; RESP 18; TEMP 36.9; O2SAT 99
--- NOTE | 2024-03-02 17:07 | EXP.PN ---
Subjective *Date: 03/02/24 *Time: 17:07 Interval history: seen at bedside, dneied any complains including chest pain, SOB, N/V Exam Data for Last 24 hours Vital signs and Labs for Last 24 Hours: Temp Pulse Resp BP Pulse Ox O2 Del Method 98.4 F 87 18 90/47 L 99 Room Air 03/02/24 16:00 03/02/24 16:00 03/02/24 16:00 03/02/24 16:00 03/02/24 16:00 03/02/24 16:00 Laboratory Results - last 24 hr 03/02/24 05:27: WBC 5.2, RBC 2.97 L, Hgb 9.5 L, Hct 28.9 L, MCV 97.5, MCH 32.1 H, MCHC 32.9, RDW 15.5, Plt Count 208, MPV 8.7, Neut % (Auto) 40.9, Lymph % (Auto) 46.3, [place] % (Auto) 6.9, Eos % (Auto) 5.4, Baso % (Auto) 0.5, Neut # (Auto) 2.1, Lymph # (Auto) 2.4, [place] # (Auto) 0.4, Eos # (Auto) 0.3, Baso # (Auto) 0.0, Sodium 136, Potassium 4.1, Chloride 104, Carbon Dioxide 25, Anion Gap 11.1, BUN 8, Creatinine 0.80, Estimated Creat Clear 53, Estimated GFR 70, Est GFR ( Amer) 85, Glucose 139 H, Calcium 9.1, Magnesium 1.9 D, Total Bilirubin 0.2, AST 29, ALT 22, Alkaline Phosphatase 54, Total Protein 5.4 L, Albumin 3.1 L, Globulin 2.3, Albumin/Globulin Ratio 1.3 03/02/24 10:00: Troponin I < 0.01 I & O for Last 24 hours: Intake & Output 02/28/24 02/29/24 03/01/24 03/02/24 23:59 23:59 23:59 23:59 Intake Total 2069 / 2219 1896 / 1896 1020 / 1020 840 / 840 Output Total 1999 / 2499 3300 / 3850 1850 / 1850 0 / 0 Balance 70 / -280 -1404 / -1954 -830 / -830 840 / 840 Weight 67.9 kg 66.905 kg 67.313 kg 68.266 kg Constitutional Constitutional: no acute distress *Routine HEENT Exam Head: Present normocephalic Eye: Present EOMI and PERRL ENT: Present mucous membranes moist *Routine Neck Exam Neck: Present supple; Absent lymphadenopathy *Routine Respiratory Exam Respiratory: Present CTA bilaterally *Routine Cardiovascular Exam Cardiovascular: Present RRR *Routine Abdominal Exam Abdominal: Present soft and normoactive bowel sounds; Absent tenderness *Routine Extremities Exam Extremities: Absent cyanosis, clubbing or edema *Routine Skin Exam Skin: Present warm; Absent rash *Routine Neurological Exam Neurological: Present alert and oriented X3 Assessment and Plan *Assessment and plan (1) UTI (urinary tract infection): Status: Acute Category: Medical Code(s): N39.0 - Urinary tract infection, site not specified (2) KRISTIE (acute kidney injury): Status: Resolved Category: Medical Code(s): N17.9 - Acute kidney failure, unspecified (3) Urinary retention: Status: Resolved Category: Medical Code(s): R33.9 - Retention of urine, unspecified (4) Hypokalemia: Status: Acute Category: Medical Code(s): E87.6 - Hypokalemia (5) Weakness: Status: Acute Category: Medical Code(s): R53.1 - Weakness (6) Anemia: Status: Acute Category: Medical Code(s): D64.9 - Anemia, unspecified (7) Diabetes mellitus, type 2: Status: Acute Qualifiers: Diabetes mellitus intermediate frame tender insulin use: without intermediate frame tender use Diabetes mellitus complication status: with other specified complication Qualified Code(s): E11.69 - Type 2 diabetes mellitus with other specified complication Category: Medical Code(s): E11.9 - Type 2 diabetes mellitus without complications (8) Candidal dermatitis: Status: Acute Category: Medical Code(s): B37.2 - Candidiasis of skin and nail (9) Hypertension: Status: Acute Category: Medical Code(s): I10 - Essential (primary) hypertension (10) Anxiety: Status: Chronic Category: Medical Code(s): F41.9 - Anxiety disorder, unspecified (11) Respiratory alkalosis: Status: Acute Category: Medical Code(s): E87.3 - Alkalosis (12) Hypomagnesemia: Status: Acute Category: Medical Code(s): E83.42 - Hypomagnesemia Plan 73-year-old female with PMHx of insulin-dependent diabetes, resident [facility] [place]. Was brought by EMS to the ER for decreased p.o. intake and concern for urinary retention. Patient complaining some abdominal discomfort. Workup in the ER showing concern for UTI and KRISTIE. Medicine consulted for admission and further management. Discussed case with ER, request admission due to urinary retention, KRISTIE, UTI, and inability to return back to her [facility]. Medicine agreed to admit for further management. Admitted for observation. Case management consulted and assisting with evaluation of patient's guardianship status. Needs long-term care. Anticipate prolonged admission due to patient's clinical condition, inability to make decisions for herself, and need for long-term placement. Completed antibiotic course. Clinically stable. Problems addressed as follows: KRISTIE - improved UTI -UTI due to Proteus mirabilis. Sensitive to levofloxacin. Completed 5 days of antibiotics. -Urology consulted, evaluated today. As patient is having less than 100 cc residual, can stop in and out cathing. Recommend initiating methenamine hippurate, ascorbic acid. -Lab holiday today. Will obtain labs in the morning, CBC, CMP, magnesium ordered. Continue magnesium supplementation 400 mg p.o. twice daily Anxiety: Continue BuSpar 10 mg twice daily, Ativan 0.25 mg twice daily, and Zoloft 100 mg daily Hypertension and sinus tachycardia: Continue metoprolol. Continue multivitamin with iron Urinary retention: Improving - Patient's urinary retention concerning for differential as follows: detrusor underactivity, bladder neck obstruction, dysfunctional voiding, medication side effect, or neurologic disorder. Unclear etiology. -Continue tamsulosin 0.4 mg twice daily - Given patient's psychiatric history, unable to stop SSRI at this time and benzos. This complicates her retention. Will avoid anticholinergic medications. Hx of NIDDM: A1c 4.9 during last admission. Resume metformin 500 mg orally once daily PLOV for dvt ppx protonix Full code regular diet awaiting guardianship and placement
[2024-03-02] MEDS: PRENATAL MULTIVITAMIN W/IRON 1 EACH PO (17:32)
--- NOTE | 2024-03-02 18:10 | PC.NURSE ---
PT C/O CHEST PAIN THIS MORNING AFTER AMBULATING IN HALLWAY WITH PT. EKG AND VITAL SIGNS OBTAINED. DR MCCLURE MADE AWARE OF THE RESULTS AND ORDERED TROPONIN. PT HAS DENIED PAIN SINCE THIS OCCURRENCE. TOLERATING DIET WELL. BED ALARM IN PLACE.
[2024-03-02 19:51] VITALS: BP 119/66; PULSE 85; RESP 18; TEMP 37; O2SAT 97
[2024-03-02 20:24] VITALS: O2SAT 97
[2024-03-03 04:00] VITALS: BP 116/54; PULSE 80; RESP 18; TEMP 36.8; O2SAT 97; BMI 28.0
--- NOTE | 2024-03-03 04:19 | PC.NURSE ---
Patient alert and oriented x2. Ambulated to restroom as needed x1 assist with walker. No complaints of chest pain or shortness of breath through shift. Patient has slept well through majority of shift. No new complaints. Bed in lowest position, call light within reach and bed alarm active.
[2024-03-03] MEDS: METFORMIN 500MG TABLET 500 MG PO (06:11)
[2024-03-03 07:31] VITALS: BP 108/58; PULSE 75; RESP 18; TEMP 36.9; O2SAT 95
[2024-03-03] MEDS: METOPROLOL TARTRATE 25MG TABLET 25 MG PO (09:09)
[2024-03-03] MEDS: FAMOTIDINE 20MG TABLET 20 MG PO ×2 (09:09→20:17)
[2024-03-03] MEDS: TAMSULOSIN 0.4MG CAPSULE 0.400000000000000022 MG PO ×2 (09:09→20:17)
[2024-03-03] MEDS: LORazepam 0.5MG TABLET 0.25 MG PO ×2 (09:09→20:17)
[2024-03-03] MEDS: ASCORBIC ACID 500MG TAB 500 MG PO ×2 (09:09→20:17)
[2024-03-03] MEDS: BUSPIRONE HCL 10 MG TABLET PO ×2 (09:09→20:17)
[2024-03-03] MEDS: FUROSEMIDE 40 MG TABLET PO (09:09)
[2024-03-03] MEDS: ERGOCALCIFEROL 50,000 UNITS (1.25MG) CAPSULE 50000 UNIT PO (09:09)
[2024-03-03] MEDS: ASPIRIN 81MG CHEWABLE TABLET 81 MG PO (09:09)
[2024-03-03] MEDS: MAGNESIUM OXIDE 400MG TABLET 400 MG PO ×2 (09:09→20:17)
[2024-03-03] MEDS: ENOXAPARIN 40MG/0.4ML SYRINGE 40 MG SQ (09:09)
[2024-03-03] MEDS: SERTRALINE 100MG TABLET 100 MG PO (09:09)
[2024-03-03] MEDS: NYSTATIN TOPICAL POWDER 30GM TP ×2 (09:10→20:17)
--- NOTE | 2024-03-03 14:54 | PC.NURSE ---
Patient alert and oriented to self. Pleasantly confused and cooperative. VSS. On room air. Denies pain with no nonverbal indications of pain present. Up with 1 and FWW to BR for voids. Tolerating oral intake. Bed and chair alarms on. Currently awaiting long-term care placement
[2024-03-03 15:31] VITALS: BP 107/66; PULSE 76; RESP 19; TEMP 36.9; O2SAT 91
--- NOTE | 2024-03-03 16:04 | P.PN_ITS ---
Subjective *Date: 03/03/24 *Time: 16:20 Interval history: seen at bedside, dneied any complains including chest pain, SOB, N/V Exam Data for Last 24 hours Vital signs and Labs for Last 24 Hours: Temp Pulse Resp BP Pulse Ox O2 Del Method 98.5 F 76 19 107/66 L 91 L Room Air 03/03/24 15:31 03/03/24 15:31 03/03/24 15:31 03/03/24 15:31 03/03/24 15:31 03/03/24 15:31 I & O for Last 24 hours: Intake & Output 02/29/24 03/01/24 03/02/24 03/03/24 23:59 23:59 23:59 23:59 Intake Total 1896 / 1896 1020 / 1020 1380 / 1380 540 / 540 Output Total 3300 / 3850 1850 / 1850 0 / 0 Balance -1404 / -1954 -830 / -830 1380 / 1380 539 / 539 Weight 66.905 kg 67.313 kg 68.266 kg 71.668 kg Constitutional Constitutional: no acute distress *Routine HEENT Exam Head: Present normocephalic Eye: Present EOMI and PERRL ENT: Present mucous membranes moist *Routine Neck Exam Neck: Present supple; Absent lymphadenopathy *Routine Respiratory Exam Respiratory: Present CTA bilaterally *Routine Cardiovascular Exam Cardiovascular: Present RRR *Routine Abdominal Exam Abdominal: Present soft and normoactive bowel sounds; Absent tenderness *Routine Extremities Exam Extremities: Absent cyanosis, clubbing or edema *Routine Skin Exam Skin: Present warm; Absent rash *Routine Neurological Exam Neurological: Present alert and oriented X3 Assessment and Plan *Assessment and plan (1) UTI (urinary tract infection): Status: Acute Category: Medical Code(s): N39.0 - Urinary tract infection, site not specified (2) KRISTIE (acute kidney injury): Status: Resolved Category: Medical Code(s): N17.9 - Acute kidney failure, unspecified (3) Urinary retention: Status: Resolved Category: Medical Code(s): R33.9 - Retention of urine, unspecified (4) Hypokalemia: Status: Acute Category: Medical Code(s): E87.6 - Hypokalemia (5) Weakness: Status: Acute Category: Medical Code(s): R53.1 - Weakness (6) Anemia: Status: Acute Category: Medical Code(s): D64.9 - Anemia, unspecified (7) Diabetes mellitus, type 2: Status: Acute Qualifiers: 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: without concrete mixing plant laborer use Diabetes mellitus complication status: with other specified complication Qualified Code(s): E11.69 - Type 2 diabetes mellitus with other specified complication Category: Medical Code(s): E11.9 - Type 2 diabetes mellitus without complications (8) Candidal dermatitis: Status: Acute Category: Medical Code(s): B37.2 - Candidiasis of skin and nail (9) Hypertension: Status: Acute Category: Medical Code(s): I10 - Essential (primary) hypertension (10) Anxiety: Status: Chronic Category: Medical Code(s): F41.9 - Anxiety disorder, unspecified (11) Respiratory alkalosis: Status: Acute Category: Medical Code(s): E87.3 - Alkalosis (12) Hypomagnesemia: Status: Acute Category: Medical Code(s): E83.42 - Hypomagnesemia Plan 73-year-old female with PMHx of insulin-dependent diabetes[facility] ER for decreased p.o. intake and concern for urinary retention. Patient complaining some abdominal discomfort. Workup in the ER showing concern for UTI and KRISTIE. Medicine consulted for admission and further management. Discussed case with ER, request admission due to urinary retention, KRISTIE, UTI, and inability to return back to her personal-long term. Medicine agreed to admit for further management. Admitted for observation. Case management consulted and assisting with evaluation of patient's guardianship status. Needs long-term care. Anticipate prolonged admission due to patient's clinical condition, inability to make decisions for herself, and need for long-term placement. Completed antibiotic course. Clinically stable. Problems addressed as follows: KRISTIE - improved UTI -UTI due to Proteus mirabilis. Sensitive to levofloxacin. Completed 5 days of antibiotics. -Urology consulted, evaluated today. As patient is having less than 100 cc residual, can stop in and out cathing. Recommend initiating methenamine hippurate, ascorbic acid. -Lab holiday today. Will obtain labs in the morning, CBC, CMP, magnesium ordered. Continue magnesium supplementation 400 mg p.o. twice daily Anxiety: Continue BuSpar 10 mg twice daily, Ativan 0.25 mg twice daily, and Zoloft 100 mg daily Hypertension and sinus tachycardia: Continue metoprolol. Continue multivitamin with iron Urinary retention: Improving - Patient's urinary retention concerning for differential as follows: detrusor underactivity, bladder neck obstruction, dysfunctional voiding, medication side effect, or neurologic disorder. Unclear etiology. -Continue tamsulosin 0.4 mg twice daily - Given patient's psychiatric history, unable to stop SSRI at this time and benzos. This complicates her retention. Will avoid anticholinergic medications. Hx of NIDDM: A1c 4.9 during last admission. Resume metformin 500 mg orally once daily PLOV for dvt ppx protonix Full code regular diet awaiting guardianship and placement
[2024-03-03] MEDS: PRENATAL MULTIVITAMIN W/IRON 1 EACH PO (18:21)
[2024-03-03 19:52] VITALS: BP 98/61; PULSE 77; RESP 16; TEMP 36.9; O2SAT 96
--- NOTE | 2024-03-03 23:26 | PC.NURSE ---
TRANSFER OF CARE TO LH, RN AND TONY, RN
[2024-03-04 04:00] VITALS: BP 138/60; PULSE 73; RESP 17; TEMP 37; O2SAT 93; BMI 28.0
--- NOTE | 2024-03-04 04:36 | PC.NURSE ---
Patient alert and oriented to name and birthday. Tolerating room air well. Up to bathroom x1 assist as needed. Patient has rested well through the night. Has not expressed any complaints or needs. No chest pain or shortness of breath reported tonight. Awaiting placement. Safety measures in place.
[2024-03-04] MEDS: METFORMIN 500MG TABLET 500 MG PO (06:18)
[2024-03-04 08:00] VITALS: BP 110/54; PULSE 86; RESP 17; TEMP 36.7; O2SAT 100
[2024-03-04] MEDS: TAMSULOSIN 0.4MG CAPSULE 0.400000000000000022 MG PO ×2 (08:48→20:34)
[2024-03-04] MEDS: SERTRALINE 100MG TABLET 100 MG PO (08:48)
[2024-03-04] MEDS: FUROSEMIDE 40 MG TABLET PO (08:48)
[2024-03-04] MEDS: METOPROLOL TARTRATE 25MG TABLET 25 MG PO ×2 (08:48→20:34)
[2024-03-04] MEDS: ASPIRIN 81MG CHEWABLE TABLET 81 MG PO (08:48)
[2024-03-04] MEDS: LORazepam 0.5MG TABLET 0.25 MG PO ×2 (08:48→20:34)
[2024-03-04] MEDS: ENOXAPARIN 40MG/0.4ML SYRINGE 40 MG SQ (08:48)
[2024-03-04] MEDS: MAGNESIUM OXIDE 400MG TABLET 400 MG PO ×2 (08:48→20:34)
[2024-03-04] MEDS: NYSTATIN TOPICAL POWDER 30GM TP ×2 (08:49→20:36)
[2024-03-04] MEDS: BUSPIRONE HCL 10 MG TABLET PO ×2 (08:49→20:34)
[2024-03-04] MEDS: ASCORBIC ACID 500MG TAB 500 MG PO ×2 (08:49→20:34)
[2024-03-04] MEDS: FAMOTIDINE 20MG TABLET 20 MG PO ×2 (08:49→20:34)
--- NOTE | 2024-03-04 15:37 | PC.NURSE ---
Patient oriented to self but cooperative. On room air. VSS. Tolerating oral intake. Up with 1 to BR for voids. Bed and chair alarm activated. Continue to wait for rn long term care care placement.
--- NOTE | 2024-03-04 15:40 | P.PN_ITS ---
Subjective *Date: 03/04/24 *Time: 15:40 Interval history: seen in person, sitting in chair, no complains, denied CP, SOB Exam Data for Last 24 hours Vital signs and Labs for Last 24 Hours: Temp Pulse Resp BP Pulse Ox O2 Del Method 98.1 F 86 17 110/54 L 100 Room Air 03/04/24 08:00 03/04/24 08:00 03/04/24 08:00 03/04/24 08:00 03/04/24 08:00 03/04/24 15:00 I & O for Last 24 hours: Intake & Output 03/01/24 03/02/24 03/03/24 03/04/24 23:59 23:59 23:59 23:59 Intake Total 1020 / 1020 1380 / 1380 1500 / 1500 780 / 780 Output Total 1850 / 1850 0 / 0 2 / 2 0 / 0 Balance -830 / -830 1380 / 1380 1498 / 1498 780 / 780 Weight 67.313 kg 68.266 kg 71.668 kg 71.668 kg Constitutional Constitutional: no acute distress *Routine HEENT Exam Head: Present normocephalic Eye: Present EOMI and PERRL ENT: Present mucous membranes moist *Routine Neck Exam Neck: Present supple; Absent lymphadenopathy *Routine Respiratory Exam Respiratory: Present CTA bilaterally *Routine Cardiovascular Exam Cardiovascular: Present RRR *Routine Abdominal Exam Abdominal: Present soft and normoactive bowel sounds; Absent tenderness *Routine Extremities Exam Extremities: Absent cyanosis, clubbing or edema *Routine Skin Exam Skin: Present warm; Absent rash *Routine Neurological Exam Neurological: Present alert and oriented X3 Assessment and Plan *Assessment and plan (1) UTI (urinary tract infection): Status: Acute Category: Medical Code(s): N39.0 - Urinary tract infection, site not specified (2) KRISTIE (acute kidney injury): Status: Resolved Category: Medical Code(s): N17.9 - Acute kidney failure, unspecified (3) Urinary retention: Status: Resolved Category: Medical Code(s): R33.9 - Retention of urine, unspecified (4) Hypokalemia: Status: Acute Category: Medical Code(s): E87.6 - Hypokalemia (5) Weakness: Status: Acute Category: Medical Code(s): R53.1 - Weakness (6) Anemia: Status: Acute Category: Medical Code(s): D64.9 - Anemia, unspecified (7) Diabetes mellitus, type 2: Status: Acute Qualifiers: Diabetes mellitus tank terminal gauger insulin use: without [facility] use Diabetes mellitus complication status: with other specified complication Qualified Code(s): E11.69 - Type 2 diabetes mellitus with other specified complication Category: Medical Code(s): E11.9 - Type 2 diabetes mellitus without complications (8) Candidal dermatitis: Status: Acute Category: Medical Code(s): B37.2 - Candidiasis of skin and nail (9) Hypertension: Status: Acute Category: Medical Code(s): I10 - Essential (primary) hypertension (10) Anxiety: Status: Chronic Category: Medical Code(s): F41.9 - Anxiety disorder, unspecified (11) Respiratory alkalosis: Status: Acute Category: Medical Code(s): E87.3 - Alkalosis (12) Hypomagnesemia: Status: Acute Category: Medical Code(s): E83.42 - Hypomagnesemia Plan 73-year-old female with PMHx of insulin-dependent diabetes[facility] ER for decreased p.o. intake and concern for urinary retention. Patient complaining some abdominal discomfort. Workup in the ER showing concern for UTI and KRISTIE. Medicine consulted for admission and further management. Discussed case with ER, request admission due to urinary retention, KRISTIE, UTI, and inability to return back to her personal-correction. Medicine agreed to admit for further management. Admitted for observation. Case management consulted and assisting with evaluation of patient's guardianship status. Needs long-term care. Anticipate prolonged admission due to patient's clinical condition, inability to make decisions for herself, and need for long-term placement. Completed antibiotic course. Clinically stable. Problems addressed as follows: KRISTIE - improved UTI -UTI due to Proteus mirabilis. Sensitive to levofloxacin. Completed 5 days of antibiotics. -Urology consulted, evaluated today. As patient is having less than 100 cc residual, can stop in and out cathing. Recommend initiating methenamine hippurate, ascorbic acid. -Lab holiday today. Will obtain labs in the morning, CBC, CMP, magnesium ordered. Continue magnesium supplementation 400 mg p.o. twice daily Anxiety: Continue BuSpar 10 mg twice daily, Ativan 0.25 mg twice daily, and Zoloft 100 mg daily Hypertension and sinus tachycardia: Continue metoprolol. Continue multivitamin with iron Urinary retention: Improving - Patient's urinary retention concerning for differential as follows: detrusor underactivity, bladder neck obstruction, dysfunctional voiding, medication side effect, or neurologic disorder. Unclear etiology. -Continue tamsulosin 0.4 mg twice daily - Given patient's psychiatric history, unable to stop SSRI at this time and benzos. This complicates her retention. Will avoid anticholinergic medications. Hx of NIDDM: A1c 4.9 during last admission. Resume metformin 500 mg orally once daily PLOV for dvt ppx protonix Full code regular diet awaiting guardianship and placement
[2024-03-04 16:00] VITALS: BP 98/50; PULSE 68; RESP 16; TEMP 36.7; O2SAT 98
[2024-03-04] MEDS: PRENATAL MULTIVITAMIN W/IRON 1 EACH PO (17:31)
[2024-03-04 20:00] VITALS: BP 92/63; PULSE 80; RESP 17; TEMP 36.8; O2SAT 99
[2024-03-05 04:00] VITALS: BP 99/55; PULSE 80; RESP 16; TEMP 36.7; O2SAT 97; BMI 25.7
[2024-03-05] MEDS: METFORMIN 500MG TABLET 500 MG PO (06:45)
[2024-03-05 07:02] LABS: Chloride 106 mmol/L (98-107)
[2024-03-05 07:03] LABS: Potassium 3.9 mmoL/L (3.5-5.1); Sodium 136 mmol/L (136-145)
[2024-03-05 07:05] LABS: Alanine Aminotransferase 22 U/L (12-78); Anion Gap 7.9 mEq/L (5-15); Aspartate Amino Transferase 31 U/L (14-36); Blood Urea Nitrogen 9 mg/dl (7-17); Carbon Dioxide 26 mmol/L (22.0-30.0); Creatinine Clearance Estimated 51 mL/min (50-200); Estimated Glomerular Filt Rate 70 ml/min (>60); GFR (African American) 85 ML/MIN (>60)
[2024-03-05 07:06] LABS: Albumin Level 2.9 g/dl (3.5-5.0); Albumin/Globulin Ratio 1.2 (1.1-1.8); Alkaline Phosphatase 56 U/L (38-126); Bilirubin,Total 0.2 mg/dl (0.2-1.3); Calcium 8.9 mg/dl (8.4-10.2); Globulin 2.4 g/dL (1.3-3.2); Glucose 135 mg/dl (74-100); Total Protein,Serum 5.3 g/dl (6.3-8.2)
[2024-03-05 07:21] LABS: Basophils % 0.4 % (0.1-2.0); Eosinophils # 0.2 K/mm3 (0.0-0.4); Eosinophils % 4.4 % (0.1-12.0); Hematocrit 28.6 % (37.0-47.0); Hemoglobin 9.3 g/dL (12.2-16.2); Lymphocytes % 47.5 % (10-50); Mean Corpuscular HGB Conc 32.4 g/dL (31.8-35.4); Mean Corpuscular Hemoglobin 31.5 pg (27.0-31.2); Mean Corpuscular Volume 97.1 fl (81-99); Mean Platelet Volume 8.5 fl (7.4-10.4); Monocytes # 0.3 K/mm3 (0.1-1.0); Monocytes % 6.9 % (1.7-9.3); Neutrophils # 1.7 K/mm3 (1.8-7.8); Neutrophils % 40.9 % (37.0-80.0); Platelet Count 207 K/mm3 (142-424); Red Blood Count 2.94 M/mm3 (4.20-5.40); Red Cell Distribution Width 15.3 % (11.5-17.5); White Blood Count 4.1 K/mm3 (4.8-10.8)
[2024-03-05 08:00] VITALS: BP 122/53; PULSE 73; RESP 20; TEMP 36.4; O2SAT 99
[2024-03-05] MEDS: FUROSEMIDE 40 MG TABLET PO (08:12)
[2024-03-05] MEDS: SERTRALINE 100MG TABLET 100 MG PO (08:12)
[2024-03-05] MEDS: ASPIRIN 81MG CHEWABLE TABLET 81 MG PO (08:12)
[2024-03-05] MEDS: TAMSULOSIN 0.4MG CAPSULE 0.400000000000000022 MG PO ×2 (08:12→20:24)
[2024-03-05] MEDS: BUSPIRONE HCL 10 MG TABLET PO ×2 (08:12→20:24)
[2024-03-05] MEDS: MAGNESIUM OXIDE 400MG TABLET 400 MG PO ×2 (08:12→20:24)
[2024-03-05] MEDS: METOPROLOL TARTRATE 25MG TABLET 25 MG PO ×2 (08:12→20:24)
[2024-03-05] MEDS: FAMOTIDINE 20MG TABLET 20 MG PO ×2 (08:12→20:24)
[2024-03-05] MEDS: ASCORBIC ACID 500MG TAB 500 MG PO ×2 (08:12→20:24)
[2024-03-05] MEDS: ENOXAPARIN 40MG/0.4ML SYRINGE 40 MG SQ (08:12)
[2024-03-05] MEDS: LORazepam 0.5MG TABLET 0.25 MG PO ×2 (08:15→20:25)
[2024-03-05] MEDS: NYSTATIN TOPICAL POWDER 30GM TP (10:14)
[2024-03-05 16:00] VITALS: BP 107/66; PULSE 70; RESP 20; TEMP 36.6; O2SAT 99
--- NOTE | 2024-03-05 16:00 | EXP.PN ---
Subjective *Date: 03/05/24 *Time: 16:00 Interval history: seen in person, sitting in chair, no complains, denied CP, SOB Exam Data for Last 24 hours Vital signs and Labs for Last 24 Hours: Temp Pulse Resp BP Pulse Ox O2 Del Method 97.5 F L 73 20 122/53 L 99 Room Air 03/05/24 08:00 03/05/24 08:00 03/05/24 08:00 03/05/24 08:00 03/05/24 08:00 03/05/24 15:00 Laboratory Results - last 24 hr 03/05/24 05:28: WBC 4.1 L, RBC 2.94 L, Hgb 9.3 L, Hct 28.6 L, MCV 97.1, MCH 31.5 H, MCHC 32.4, RDW 15.3, Plt Count 207, MPV 8.5, Neut % (Auto) 40.9, Lymph % (Auto) 47.5, Simpson % (Auto) 6.9, Eos % (Auto) 4.4, Baso % (Auto) 0.4, Neut # (Auto) 1.7 L, Lymph # (Auto) 2.0, Simpson # (Auto) 0.3, Eos # (Auto) 0.2, Baso # (Auto) 0.0, Sodium 136, Potassium 3.9, Chloride 106, Carbon Dioxide 26, Anion Gap 7.9, BUN 9, Creatinine 0.80, Estimated Creat Clear 51, Estimated GFR 70, Est GFR ( Amer) 85, Glucose 135 H, Calcium 8.9, Magnesium 2.0, Total Bilirubin 0.2, AST 31, ALT 22, Alkaline Phosphatase 56, Total Protein 5.3 L, Albumin 2.9 L, Globulin 2.4, Albumin/Globulin Ratio 1.2 I & O for Last 24 hours: Intake & Output 03/02/24 03/03/24 03/04/24 03/05/24 23:59 23:59 23:59 23:59 Intake Total 1380 / 1380 1500 / 1500 1120 / 1360 760 / 760 Output Total 0 / 0 2 / 2 0 / 0 200 / 200 Balance 1380 / 1380 1498 / 1498 1120 / 1360 560 / 560 Weight 68.266 kg 71.668 kg 71.668 kg 65.998 kg Constitutional Constitutional: no acute distress *Routine HEENT Exam Head: Present normocephalic Eye: Present EOMI and PERRL ENT: Present mucous membranes moist *Routine Neck Exam Neck: Present supple; Absent lymphadenopathy *Routine Respiratory Exam Respiratory: Present CTA bilaterally *Routine Cardiovascular Exam Cardiovascular: Present RRR *Routine Abdominal Exam Abdominal: Present soft and normoactive bowel sounds; Absent tenderness *Routine Extremities Exam Extremities: Absent cyanosis, clubbing or edema *Routine Skin Exam Skin: Present warm; Absent rash *Routine Neurological Exam Neurological: Present alert and oriented X3 Assessment and Plan *Assessment and plan (1) UTI (urinary tract infection): Status: Acute Category: Medical Code(s): N39.0 - Urinary tract infection, site not specified (2) KRISTIE (acute kidney injury): Status: Resolved Category: Medical Code(s): N17.9 - Acute kidney failure, unspecified (3) Urinary retention: Status: Resolved Category: Medical Code(s): R33.9 - Retention of urine, unspecified (4) Hypokalemia: Status: Acute Category: Medical Code(s): E87.6 - Hypokalemia (5) Weakness: Status: Acute Category: Medical Code(s): R53.1 - Weakness (6) Anemia: Status: Acute Category: Medical Code(s): D64.9 - Anemia, unspecified (7) Diabetes mellitus, type 2: Status: Acute Qualifiers: 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 use: without nursing home use Diabetes mellitus complication status: with other specified complication Qualified Code(s): E11.69 - Type 2 diabetes mellitus with other specified complication Category: Medical Code(s): E11.9 - Type 2 diabetes mellitus without complications (8) Candidal dermatitis: Status: Acute Category: Medical Code(s): B37.2 - Candidiasis of skin and nail (9) Hypertension: Status: Acute Category: Medical Code(s): I10 - Essential (primary) hypertension (10) Anxiety: Status: Chronic Category: Medical Code(s): F41.9 - Anxiety disorder, unspecified (11) Respiratory alkalosis: Status: Acute Category: Medical Code(s): E87.3 - Alkalosis (12) Hypomagnesemia: Status: Acute Category: Medical Code(s): E83.42 - Hypomagnesemia Plan 73-year-old female with PMHx of insulin-dependent diabetes, resident [place] [facility] Was brought by EMS to the ER for decreased p.o. intake and concern for urinary retention. Patient complaining some abdominal discomfort. Workup in the ER showing concern for UTI and KRISTIE. Medicine consulted for admission and further management. Discussed case with ER, request admission due to urinary retention, KRISTIE, UTI, and inability to return back to her personal-longterm. Medicine agreed to admit for further management. Admitted for observation. Case management consulted and assisting with evaluation of patient's guardianship status. Needs long-term care. Anticipate prolonged admission due to patient's clinical condition, inability to make decisions for herself, and need for long-term placement. Completed antibiotic course. Clinically stable. Problems addressed as follows: KRISTIE - improved UTI -UTI due to Proteus mirabilis. Sensitive to levofloxacin. Completed 5 days of antibiotics. -Urology consulted, evaluated today. As patient is having less than 100 cc residual, can stop in and out cathing. Recommend initiating methenamine hippurate, ascorbic acid. -Lab holiday today. Will obtain labs in the morning, CBC, CMP, magnesium ordered. Continue magnesium supplementation 400 mg p.o. twice daily Anxiety: Continue BuSpar 10 mg twice daily, Ativan 0.25 mg twice daily, and Zoloft 100 mg daily Hypertension and sinus tachycardia: Continue metoprolol. Continue multivitamin with iron Urinary retention: Improving - Patient's urinary retention concerning for differential as follows: detrusor underactivity, bladder neck obstruction, dysfunctional voiding, medication side effect, or neurologic disorder. Unclear etiology. -Continue tamsulosin 0.4 mg twice daily - Given patient's psychiatric history, unable to stop SSRI at this time and benzos. This complicates her retention. Will avoid anticholinergic medications. Hx of NIDDM: A1c 4.9 during last admission. Resume metformin 500 mg orally once daily PLOV for dvt ppx protonix Full code regular diet awaiting guardianship and placement
[2024-03-05] MEDS: PRENATAL MULTIVITAMIN W/IRON 1 EACH PO (16:37)
--- NOTE | 2024-03-05 17:37 | PC.NURSE ---
Pt oriented to self. Pt up to bedside chair most of day. Assist X1 to bathroom and for transfers. pt pleasantly confused. no needs or complaints at this time. safety measures in place.
[2024-03-05 20:00] VITALS: BP 112/70; PULSE 75; RESP 16; TEMP 36.6; O2SAT 98
[2024-03-06 04:00] VITALS: BP 103/58; PULSE 70; RESP 16; TEMP 37.1; O2SAT 98; BMI 25.5
--- NOTE | 2024-03-06 04:44 | PC.NURSE ---
Pt is alert to self and is currently tolerating RA well. Pt is pleasant and cooperative, and has no complaints. Pt has mild to moderate tremors and was anxious prior to HS meds. Pt denies pain and other needs at this time
[2024-03-06] MEDS: METFORMIN 500MG TABLET 500 MG PO (06:05)
[2024-03-06 07:41] VITALS: BP 106/49; PULSE 74; RESP 19; TEMP 36.8; O2SAT 100
[2024-03-06] MEDS: ASPIRIN 81MG CHEWABLE TABLET 81 MG PO (08:32)
[2024-03-06] MEDS: ENOXAPARIN 40MG/0.4ML SYRINGE 40 MG SQ (08:32)
[2024-03-06] MEDS: METOPROLOL TARTRATE 25MG TABLET 25 MG PO ×2 (08:33→20:07)
[2024-03-06] MEDS: MAGNESIUM OXIDE 400MG TABLET 400 MG PO ×2 (08:33→20:07)
[2024-03-06] MEDS: TAMSULOSIN 0.4MG CAPSULE 0.400000000000000022 MG PO ×2 (08:33→20:07)
[2024-03-06] MEDS: FAMOTIDINE 20MG TABLET 20 MG PO ×2 (08:33→20:07)
[2024-03-06] MEDS: SERTRALINE 100MG TABLET 100 MG PO (08:33)
[2024-03-06] MEDS: BUSPIRONE HCL 10 MG TABLET PO ×2 (08:33→20:07)
[2024-03-06] MEDS: FUROSEMIDE 40 MG TABLET PO (08:33)
[2024-03-06] MEDS: ASCORBIC ACID 500MG TAB 500 MG PO ×2 (08:33→20:07)
[2024-03-06] MEDS: LORazepam 0.5MG TABLET 0.25 MG PO ×2 (08:46→20:07)
--- NOTE | 2024-03-06 12:08 | P.PN_ITS ---
Subjective *Date: 03/06/24 *Time: 12:08 Interval history: seen in person, sitting in chair, no complains, denied CP, SOB Exam Data for Last 24 hours Vital signs and Labs for Last 24 Hours: Temp Pulse Resp BP Pulse Ox O2 Del Method 98.2 F 74 19 106/49 L 100 Room Air 03/06/24 07:41 03/06/24 07:41 03/06/24 07:41 03/06/24 07:41 03/06/24 07:41 03/06/24 10:51 I & O for Last 24 hours: Intake & Output 03/03/24 03/04/24 03/05/24 03/06/24 23:59 23:59 23:59 23:59 Intake Total 1500 / 1500 1120 / 1360 880 / 1000 390 / 390 Output Total 2 / 2 0 / 0 200 / 200 0 / 0 Balance 1498 / 1498 1120 / 1360 680 / 800 390 / 390 Weight 71.668 kg 71.668 kg 65.998 kg 65.346 kg Constitutional Constitutional: no acute distress *Routine HEENT Exam Head: Present normocephalic Eye: Present EOMI and PERRL ENT: Present mucous membranes moist *Routine Neck Exam Neck: Present supple; Absent lymphadenopathy *Routine Respiratory Exam Respiratory: Present CTA bilaterally *Routine Cardiovascular Exam Cardiovascular: Present RRR *Routine Abdominal Exam Abdominal: Present soft and normoactive bowel sounds; Absent tenderness *Routine Extremities Exam Extremities: Absent cyanosis, clubbing or edema *Routine Skin Exam Skin: Present warm; Absent rash *Routine Neurological Exam Neurological: Present alert and oriented X3 Assessment and Plan *Assessment and plan (1) UTI (urinary tract infection): Status: Acute Category: Medical Code(s): N39.0 - Urinary tract infection, site not specified (2) KRISTIE (acute kidney injury): Status: Resolved Category: Medical Code(s): N17.9 - Acute kidney failure, unspecified (3) Urinary retention: Status: Resolved Category: Medical Code(s): R33.9 - Retention of urine, unspecified (4) Hypokalemia: Status: Acute Category: Medical Code(s): E87.6 - Hypokalemia (5) Weakness: Status: Acute Category: Medical Code(s): R53.1 - Weakness (6) Anemia: Status: Acute Category: Medical Code(s): D64.9 - Anemia, unspecified (7) Diabetes mellitus, type 2: Status: Acute Qualifiers: Diabetes mellitus vermin exterminator insulin use: without longterm use Diabetes mellitus complication status: with other specified complication Qualified Code(s): E11.69 - Type 2 diabetes mellitus with other specified complication Category: Medical Code(s): E11.9 - Type 2 diabetes mellitus without complications (8) Candidal dermatitis: Status: Acute Category: Medical Code(s): B37.2 - Candidiasis of skin and nail (9) Hypertension: Status: Acute Category: Medical Code(s): I10 - Essential (primary) hypertension (10) Anxiety: Status: Chronic Category: Medical Code(s): F41.9 - Anxiety disorder, unspecified (11) Respiratory alkalosis: Status: Acute Category: Medical Code(s): E87.3 - Alkalosis (12) Hypomagnesemia: Status: Acute Category: Medical Code(s): E83.42 - Hypomagnesemia Plan 73-year-old female with PMHx of insulin-dependent diabetes[facility] the ER for decreased p.o. intake and concern for urinary retention. Patient complaining some abdominal discomfort. Workup in the ER showing concern for UTI and KRISTIE. Medicine consulted for admission and further management. Discussed case with ER, request admission due to urinary retention, KRISTIE, UTI, and inability to return back to her personal-custodial. Medicine agreed to admit for further management. Admitted for observation. Case management consulted and assisting with evaluation of patient's guardianship status. Needs long-term care. Anticipate prolonged admission due to patient's clinical condition, inability to make decisions for herself, and need for long-term placement. Completed antibiotic course. Clinically stable. Problems addressed as follows: KRISTIE - improved UTI -UTI due to Proteus mirabilis. Sensitive to levofloxacin. Completed 5 days of antibiotics. -Urology consulted, evaluated today. As patient is having less than 100 cc residual, can stop in and out cathing. Recommend initiating methenamine hippurate, ascorbic acid. -Lab holiday today. Will obtain labs in the morning, CBC, CMP, magnesium ordered. Continue magnesium supplementation 400 mg p.o. twice daily Anxiety: Continue BuSpar 10 mg twice daily, Ativan 0.25 mg twice daily, and Zoloft 100 mg daily Hypertension and sinus tachycardia: Continue metoprolol. Continue multivitamin with iron Urinary retention: Improving - Patient's urinary retention concerning for differential as follows: detrusor underactivity, bladder neck obstruction, dysfunctional voiding, medication side effect, or neurologic disorder. Unclear etiology. -Continue tamsulosin 0.4 mg twice daily - Given patient's psychiatric history, unable to stop SSRI at this time and benzos. This complicates her retention. Will avoid anticholinergic medications. Hx of NIDDM: A1c 4.9 during last admission. Resume metformin 500 mg orally once daily PLOV for dvt ppx protonix Full code regular diet awaiting guardianship and placement
[2024-03-06 16:00] VITALS: BP 112/52; PULSE 66; RESP 20; TEMP 36.4; O2SAT 100
--- NOTE | 2024-03-06 16:12 | PC.NURSE ---
pt has overall had a good day. pt has had no complaints throughout the shift. pt has been resting in her chair throughout the shift. no new orders at this time. call light within reach.
[2024-03-06] MEDS: PRENATAL MULTIVITAMIN W/IRON 1 EACH PO (16:27)
[2024-03-06 19:58] VITALS: BP 107/60; PULSE 72; RESP 18; TEMP 36.7; O2SAT 100
[2024-03-06] MEDS: NYSTATIN TOPICAL POWDER 30GM TP (20:08)
[2024-03-07 04:00] VITALS: BP 100/51; PULSE 87; RESP 18; TEMP 37; O2SAT 98; BMI 25.4
--- NOTE | 2024-03-07 04:02 | PC.NURSE ---
Pt is alert to self and currently tolerating RA well. Pt remains a high fall risk and cointinues to require an bed alarm. Pt has sleep well this shift however pt has attempted to get out of bed twice this shift and was redirected easily. Pt denies pain and has no other acute changes thus far.
[2024-03-07] MEDS: METFORMIN 500MG TABLET 500 MG PO (06:09)
[2024-03-07 07:58] VITALS: BP 101/60; PULSE 78; RESP 18; TEMP 36.4; O2SAT 97
[2024-03-07] MEDS: ONDANSETRON 4MG ODT 4 MG SL (08:22)
[2024-03-07] MEDS: METOPROLOL TARTRATE 25MG TABLET 25 MG PO ×2 (08:23→20:28)
[2024-03-07] MEDS: ENOXAPARIN 40MG/0.4ML SYRINGE 40 MG SQ (08:23)
[2024-03-07] MEDS: ASPIRIN 81MG CHEWABLE TABLET 81 MG PO (08:23)
[2024-03-07] MEDS: FAMOTIDINE 20MG TABLET 20 MG PO ×2 (08:23→20:28)
[2024-03-07] MEDS: TAMSULOSIN 0.4MG CAPSULE 0.400000000000000022 MG PO ×2 (08:23→20:28)
[2024-03-07] MEDS: FUROSEMIDE 40 MG TABLET PO (08:23)
[2024-03-07] MEDS: MAGNESIUM OXIDE 400MG TABLET 400 MG PO ×2 (08:24→20:28)
[2024-03-07] MEDS: BUSPIRONE HCL 10 MG TABLET PO ×2 (08:24→20:28)
[2024-03-07] MEDS: ASCORBIC ACID 500MG TAB 500 MG PO ×2 (08:24→20:28)
[2024-03-07] MEDS: SERTRALINE 100MG TABLET 100 MG PO (08:24)
[2024-03-07] MEDS: LORazepam 0.5MG TABLET 0.25 MG PO ×2 (08:26→20:28)
[2024-03-07] MEDS: NYSTATIN TOPICAL POWDER 30GM TP ×2 (09:19→20:28)
--- NOTE | 2024-03-07 12:09 | P.PN_ITS ---
Subjective *Date: 03/07/24 *Time: 12:42 Interval history: seen at bedside, sitting in chair, no acute events overnight, no complains Exam Data for Last 24 hours Vital signs and Labs for Last 24 Hours: Temp Pulse Resp BP Pulse Ox O2 Del Method 97.5 F L 78 18 101/60 L 97 Room Air 03/07/24 07:58 03/07/24 07:58 03/07/24 07:58 03/07/24 07:58 03/07/24 07:58 03/07/24 10:49 I & O for Last 24 hours: Intake & Output 03/04/24 03/05/24 03/06/24 03/07/24 23:59 23:59 23:59 23:59 Intake Total 1120 / 1360 880 / 1000 1649 / 1110 Output Total 0 / 0 200 / 200 0 / 0 Balance 1119 / 1360 680 / 800 1649 1110 / 1110 Weight 71.668 kg 65.998 kg 65.346 kg 65.091 kg Constitutional Constitutional: no acute distress *Routine HEENT Exam Head: Present normocephalic Eye: Present EOMI and PERRL ENT: Present mucous membranes moist *Routine Neck Exam Neck: Present supple; Absent lymphadenopathy *Routine Respiratory Exam Respiratory: Present CTA bilaterally *Routine Cardiovascular Exam Cardiovascular: Present RRR *Routine Abdominal Exam Abdominal: Present soft and normoactive bowel sounds; Absent tenderness *Routine Extremities Exam Extremities: Absent cyanosis, clubbing or edema *Routine Skin Exam Skin: Present warm; Absent rash *Routine Neurological Exam Neurological: Present alert and oriented X3 Assessment and Plan *Assessment and plan (1) UTI (urinary tract infection): Status: Acute Category: Medical Code(s): N39.0 - Urinary tract infection, site not specified (2) KRISTIE (acute kidney injury): Status: Resolved Category: Medical Code(s): N17.9 - Acute kidney failure, unspecified (3) Urinary retention: Status: Resolved Category: Medical Code(s): R33.9 - Retention of urine, unspecified (4) Hypokalemia: Status: Acute Category: Medical Code(s): E87.6 - Hypokalemia (5) Weakness: Status: Acute Category: Medical Code(s): R53.1 - Weakness (6) Anemia: Status: Acute Category: Medical Code(s): D64.9 - Anemia, unspecified (7) Diabetes mellitus, type 2: Status: Acute Qualifiers: Diabetes mellitus complication status: with other specified complication Diabetes mellitus long-term insulin use: without long-term use Qualified Code(s): E11.69 - Type 2 diabetes mellitus with other specified complication Category: Medical Code(s): E11.9 - Type 2 diabetes mellitus without complications (8) Candidal dermatitis: Status: Acute Category: Medical Code(s): B37.2 - Candidiasis of skin and nail (9) Hypertension: Status: Acute Category: Medical Code(s): I10 - Essential (primary) hypertension (10) Anxiety: Status: Chronic Category: Medical Code(s): F41.9 - Anxiety disorder, unspecified (11) Respiratory alkalosis: Status: Acute Category: Medical Code(s): E87.3 - Alkalosis (12) Hypomagnesemia: Status: Acute Category: Medical Code(s): E83.42 - Hypomagnesemia Plan 73-year-old female with PMHx of insulin-dependent diabetes[facility] to the ER for decreased p.o. intake and concern for urinary retention. Patient complaining some abdominal discomfort. Workup in the ER showing concern for UTI and KRISTIE. Medicine consulted for admission and further management. Discussed case with ER, request admission due to urinary retention, KRISTIE, UTI, and inability to return back to her [facility]. Medicine agreed to admit for further management. Admitted for observation. Case management consulted and assisting with evaluation of patient's guardianship status. Needs long-term care. Anticipate prolonged admission due to patient's clinical condition, inability to make decisions for herself, and need for long-term placement. Completed antibiotic course. Clinically stable. Problems addressed as follows: KRISTIE - improved UTI -UTI due to Proteus mirabilis. Sensitive to levofloxacin. Completed 5 days of antibiotics. -Urology consulted, evaluated today. As patient is having less than 100 cc residual, can stop in and out cathing. Recommend initiating methenamine hippurate, ascorbic acid. -Lab holiday today. Will obtain labs in the morning, CBC, CMP, magnesium ordered. Continue magnesium supplementation 400 mg p.o. twice daily Anxiety: Continue BuSpar 10 mg twice daily, Ativan 0.25 mg twice daily, and Zoloft 100 mg daily Hypertension and sinus tachycardia: Continue metoprolol. Continue multivitamin with iron Urinary retention: Improving - Patient's urinary retention concerning for differential as follows: detrusor underactivity, bladder neck obstruction, dysfunctional voiding, medication side effect, or neurologic disorder. Unclear etiology. -Continue tamsulosin 0.4 mg twice daily - Given patient's psychiatric history, unable to stop SSRI at this time and benzos. This complicates her retention. Will avoid anticholinergic medications. Hx of NIDDM: A1c 4.9 during last admission. Resume metformin 500 mg orally once daily PLOV for dvt ppx protonix Full code regular diet awaiting guardianship and placement
[2024-03-07 16:00] VITALS: BP 99/54; PULSE 88; RESP 17; TEMP 37.1; O2SAT 100
--- NOTE | 2024-03-07 16:20 | PC.NURSE ---
pt has been alert to self throughout shift. pt has verbalized periods of anxiety throughout shift. this a.m. pt vomited and c/o an upset stomach. pt was treated per NOV. pt has had no further complaints throughout shift. pt is currently resting in bed with eyes closed. no new orders at this time.
[2024-03-07] MEDS: PRENATAL MULTIVITAMIN W/IRON 1 EACH PO (16:33)
[2024-03-07 20:00] VITALS: BP 108/51; PULSE 76; RESP 16; TEMP 36.9; O2SAT 100
[2024-03-08 04:00] VITALS: BP 109/55; PULSE 85; RESP 16; TEMP 36.8; O2SAT 96; BMI 25.9
--- NOTE | 2024-03-08 05:32 | PC.NURSE ---
Pt is alert to self. Voiced no complaints this shift. Ambulates to the restroom with assistance. Call light in reach.
[2024-03-08] MEDS: METFORMIN 500MG TABLET 500 MG PO (06:45)
[2024-03-08 08:00] VITALS: BP 96/51; PULSE 79; RESP 20; TEMP 37.1; O2SAT 97
[2024-03-08] MEDS: LORazepam 0.5MG TABLET 0.25 MG PO ×2 (08:09→21:07)
[2024-03-08] MEDS: ENOXAPARIN 40MG/0.4ML SYRINGE 40 MG SQ (08:10)
[2024-03-08] MEDS: ASCORBIC ACID 500MG TAB 500 MG PO ×2 (08:11→21:06)
[2024-03-08] MEDS: METOPROLOL TARTRATE 25MG TABLET 25 MG PO ×2 (08:11→21:07)
[2024-03-08] MEDS: ASPIRIN 81MG CHEWABLE TABLET 81 MG PO (08:11)
[2024-03-08] MEDS: TAMSULOSIN 0.4MG CAPSULE 0.400000000000000022 MG PO ×2 (08:11→21:08)
[2024-03-08] MEDS: MAGNESIUM OXIDE 400MG TABLET 400 MG PO ×2 (08:11→21:07)
[2024-03-08] MEDS: FUROSEMIDE 40 MG TABLET PO (08:11)
[2024-03-08] MEDS: BUSPIRONE HCL 10 MG TABLET PO ×2 (08:11→21:06)
[2024-03-08] MEDS: NYSTATIN TOPICAL POWDER 30GM TP ×2 (08:11→21:07)
[2024-03-08] MEDS: FAMOTIDINE 20MG TABLET 20 MG PO ×2 (08:11→21:07)
[2024-03-08] MEDS: SERTRALINE 100MG TABLET 100 MG PO (08:11)
--- NOTE | 2024-03-08 14:17 | P.PN_ITS ---
Subjective *Date: 03/08/24 *Time: 14:17 Interval history: seen at bedside, sitting in chair, no acute events overnight, no complains Exam Data for Last 24 hours Vital signs and Labs for Last 24 Hours: Temp Pulse Resp BP Pulse Ox O2 Del Method 98.8 F 79 20 96/51 L 97 Room Air 03/08/24 08:00 03/08/24 08:00 03/08/24 08:00 03/08/24 08:00 03/08/24 08:00 03/08/24 13:00 I & O for Last 24 hours: Intake & Output 03/05/24 03/06/24 03/07/24 03/08/24 23:59 23:59 23:59 23:59 Intake Total 880 / 1000 1649 2250 / 2470 1526 / 1526 Output Total 200 / 200 0 / 0 0 / 0 0 / 0 Balance 680 / 800 1649 2250 / 2470 1526 / 1526 Weight 65.998 kg 65.346 kg 65.091 kg 66.395 kg Constitutional Constitutional: no acute distress *Routine HEENT Exam Head: Present normocephalic Eye: Present EOMI and PERRL ENT: Present mucous membranes moist *Routine Neck Exam Neck: Present supple; Absent lymphadenopathy *Routine Respiratory Exam Respiratory: Present CTA bilaterally *Routine Cardiovascular Exam Cardiovascular: Present RRR *Routine Abdominal Exam Abdominal: Present soft and normoactive bowel sounds; Absent tenderness *Routine Extremities Exam Extremities: Absent cyanosis, clubbing or edema *Routine Skin Exam Skin: Present warm; Absent rash *Routine Neurological Exam Neurological: Present alert and oriented X3 Assessment and Plan *Assessment and plan (1) UTI (urinary tract infection): Status: Acute Category: Medical Code(s): N39.0 - Urinary tract infection, site not specified (2) KRISTIE (acute kidney injury): Status: Resolved Category: Medical Code(s): N17.9 - Acute kidney failure, unspecified (3) Urinary retention: Status: Resolved Category: Medical Code(s): R33.9 - Retention of urine, unspecified (4) Hypokalemia: Status: Acute Category: Medical Code(s): E87.6 - Hypokalemia (5) Weakness: Status: Acute Category: Medical Code(s): R53.1 - Weakness (6) Anemia: Status: Acute Category: Medical Code(s): D64.9 - Anemia, unspecified (7) Diabetes mellitus, type 2: Status: Acute Qualifiers: Diabetes mellitus long term care social worker insulin use: without long term care social worker use Diabetes mellitus complication status: with other specified complication Qualified Code(s): E11.69 - Type 2 diabetes mellitus with other specified complication Category: Medical Code(s): E11.9 - Type 2 diabetes mellitus without complications (8) Candidal dermatitis: Status: Acute Category: Medical Code(s): B37.2 - Candidiasis of skin and nail (9) Hypertension: Status: Acute Category: Medical Code(s): I10 - Essential (primary) hypertension (10) Anxiety: Status: Chronic Category: Medical Code(s): F41.9 - Anxiety disorder, unspecified (11) Respiratory alkalosis: Status: Acute Category: Medical Code(s): E87.3 - Alkalosis (12) Hypomagnesemia: Status: Acute Category: Medical Code(s): E83.42 - Hypomagnesemia Plan 73-year-old female with PMHx of insulin-dependent diabetes, [facility] Was brought by EMS to the ER for decreased p.o. intake and concern for urinary retention. Patient complaining some abdominal discomfort. Workup in the ER showing concern for UTI and KRISITE. Medicine consulted for admission and further management. Discussed case with ER, request admission due to urinary retention, KRISTIE, UTI, and inability to return back to her [facility]. Medicine agreed to admit for further management. Admitted for observation. Case management consulted and assisting with evaluation of patient's guardianship status. Needs long-term care. Anticipate prolonged admission due to patient's clinical condition, inability to make decisions for herself, and need for long-term placement. Completed antibiotic c ourse. Clinically stable. Problems addressed as follows: KRISTIE - improved UTI -UTI due to Proteus mirabilis. Sensitive to levofloxacin. Completed 5 days of antibiotics. -Urology consulted, evaluated today. As patient is having less than 100 cc residual, can stop in and out cathing. Recommend initiating methenamine hippurate, ascorbic acid. Anxiety: Continue BuSpar 10 mg twice daily, Ativan 0.25 mg twice daily, and Zoloft 100 mg daily Hypertension and sinus tachycardia: Continue metoprolol. Continue multivitamin with iron Urinary retention: Improving - Patient's urinary retention concerning for differential as follows: detrusor underactivity, bladder neck obstruction, dysfunctional voiding, medication side effect, or neurologic disorder. Unclear etiology. -Continue tamsulosin 0.4 mg twice daily - Given patient's psychiatric history, unable to stop SSRI at this time and benzos. This complicates her retention. Will avoid anticholinergic medications. Hx of NIDDM: A1c 4.9 during last admission. continue metformin 500 mg orally once daily PLOV for dvt ppx protonix Full code regular diet awaiting guardianship and placement
[2024-03-08 15:58] VITALS: BP 104/54; PULSE 74; RESP 18; TEMP 37; O2SAT 99
[2024-03-08] MEDS: PRENATAL MULTIVITAMIN W/IRON 1 EACH PO (16:49)
--- NOTE | 2024-03-08 17:05 | PC.NURSE ---
pt has been up to chair majority of the shift. pt has been alert to self. pt has been ambulating to bathroom with x1 assistance. pt has had no complaints throughout shift. pt educated on fall risk and to use her call light. no new orders at this time.
[2024-03-09 04:00] VITALS: BP 108/57; PULSE 74; RESP 16; TEMP 36.6; O2SAT 98; BMI 25.8
--- NOTE | 2024-03-09 06:17 | PC.NURSE ---
Patient is alert and oriented to herself, her birthday, and her situation. Patient's lungs are clear and heart sounds normal with S1 & S2. Patient's bowel sounds were very active upon assessment earlier this shift. Patient has slight edema bilaterally in her ankles. Patient does not have any excoriation in her abdominal folds but gets occasionally moist in the area. [place] discoloration on her inner thigh is clean, dry, and intact. Patient has rested comfortably for most of the shift. She was given a chocolate pudding and drank two Pepsis for a bedtime snack. Patient tolerates room air well and ambulates very good. Patient utilizes bathroom privileges, has voided several times, and she had a bowel movement during this shift. Patient does not have an IV in place. Patient still awaits guardianship. No acute changes were noted during this shift. She has not had any complaints during this shift. Bed alarm is functioning and call light is within reach.
[2024-03-09] MEDS: METFORMIN 500MG TABLET 500 MG PO (06:48)
[2024-03-09 06:57] LABS: Basophils % 0.6 % (0.1-2.0); Eosinophils # 0.3 K/mm3 (0.0-0.4); Eosinophils % 5.8 % (0.1-12.0); Hemoglobin 9.5 g/dL (12.2-16.2); Lymphocytes # 2.1 K/mm3 (0.7-4.5); Lymphocytes % 45.9 % (10-50); Mean Corpuscular HGB Conc 32.7 g/dL (31.8-35.4); Mean Corpuscular Hemoglobin 32.2 pg (27.0-31.2); Mean Corpuscular Volume 98.6 fl (81-99); Mean Platelet Volume 9.3 fl (7.4-10.4); Monocytes # 0.4 K/mm3 (0.1-1.0); Monocytes % 7.9 % (1.7-9.3); Neutrophils # 1.8 K/mm3 (1.8-7.8); Neutrophils % 39.8 % (37.0-80.0); Platelet Count 235 K/mm3 (142-424); Red Blood Count 2.94 M/mm3 (4.20-5.40); Red Cell Distribution Width 15.1 % (11.5-17.5); White Blood Count 4.6 K/mm3 (4.8-10.8)
[2024-03-09 07:12] LABS: Chloride 106 mmol/L (98-107); Potassium 4.1 mmoL/L (3.5-5.1); Sodium 136 mmol/L (136-145)
[2024-03-09 07:15] LABS: Alanine Aminotransferase 19 U/L (12-78); Albumin/Globulin Ratio 1.3 (1.1-1.8); Alkaline Phosphatase 50 U/L (38-126); Anion Gap 9.1 mEq/L (5-15); Aspartate Amino Transferase 31 U/L (14-36); Bilirubin,Total 0.2 mg/dl (0.2-1.3); Blood Urea Nitrogen 9 mg/dl (7-17); Carbon Dioxide 25 mmol/L (22.0-30.0); Creatinine Clearance Estimated 52 mL/min (50-200); Estimated Glomerular Filt Rate 82 ml/min (>60); GFR (African American) 99 ML/MIN (>60); Globulin 2.4 g/dL (1.3-3.2); Total Protein,Serum 5.4 g/dl (6.3-8.2)
[2024-03-09 07:16] LABS: Calcium 8.6 mg/dl (8.4-10.2); Glucose 130 mg/dl (74-100)
--- NOTE | 2024-03-09 07:48 | P.PN_ITS ---
Subjective *Date: 03/09/24 *Time: 07:48 Medical Exam Vital signs and Labs for Last 24 Hours: Vital Signs Temp Pulse Pulse Resp BP Pulse Ox O2 Del Method 03/09/24 06:52 Room Air 03/09/24 05:00 Room Air 03/09/24 04:00 97.9 F 74 16 108/57 L 98 Room Air 03/09/24 02:56 Room Air 03/09/24 00:57 Room Air 03/08/24 22:56 Room Air 03/08/24 21:00 Room Air 03/08/24 20:00 Room Air 03/08/24 18:35 Room Air 03/08/24 16:51 Room Air 03/08/24 15:58 98.6 F 74 18 104/54 L 99 Room Air 03/08/24 15:00 Room Air 03/08/24 13:00 Room Air 03/08/24 11:00 Room Air 03/08/24 09:00 Room Air 03/08/24 08:00 Room Air 03/08/24 08:00 98.8 F 79 20 96/51 L 97 Room Air Intake and Output 03/08/24 03/08/24 03/09/24 15:59 23:59 07:59 Intake Total 1546 / 3206 1200 / 3206 240 / 240 Output Total 0 / 0 0 / 0 0 / 0 Balance 1546 / 3206 1200 / 3206 240 / 240 Intake: Intake, Oral Amount 1546 / 3206 1200 / 3206 240 / 240 Output: Output, Urine Amount 0 / 0 0 / 0 0 / 0 Other: Number of Unmeasured Voids 1 1 1 Number of Bowel Movements 1 Weight 66.179 kg Patient Weight 03/09/24 23:59 Weight 66.179 kg Laboratory Results - last 24 hr 03/09/24 05:31: WBC 4.6 L, RBC 2.94 L, Hgb 9.5 L, Hct 29.0 L, MCV 98.6, MCH 32.2 H, MCHC 32.7, RDW 15.1, Plt Count 235, MPV 9.3, Neut % (Auto) 39.8, Lymph % (Auto) 45.9, [place] % (Auto) 7.9, Eos % (Auto) 5.8, Baso % (Auto) 0.6, Neut # (Auto) 1.8, Lymph # (Auto) 2.1, [place] # (Auto) 0.4, Eos # (Auto) 0.3, Baso # (Auto) 0.0, Sodium 136, Potassium 4.1, Chloride 106, Carbon Dioxide 25, Anion Gap 9.1, BUN 9, Creatinine 0.70, Estimated Creat Clear 52, Estimated GFR 82, Est GFR ( Amer) 99, Glucose 130 H, Calcium 8.6, Total Bilirubin 0.2, AST 31, ALT 19, Alkaline Phosphatase 50, Total Protein 5.4 L, Albumin 3.0 L, Globulin 2.4, Albumin/Globulin Ratio 1.3 I & O for Labs for Last 24 Hours: Intake & Output 03/06/24 03/07/24 03/08/24 03/09/24 23:59 23:59 23:59 23:59 Intake Total 1649 2250 / 2470 2966 / 3206 240 / 240 Output Total 0 / 0 0 / 0 0 / 0 0 / 0 Balance 1649 2250 / 2470 2966 / 3206 240 / 240 Weight 65.346 kg 65.091 kg 66.395 kg 66.179 kg Assessment and Plan *Assessment and plan (1) UTI (urinary tract infection): Status: Acute Category: Medical Code(s): N39.0 - Urinary tract infection, site not specified (2) KRISTIE (acute kidney injury): Status: Resolved Category: Medical Code(s): N17.9 - Acute kidney failure, unspecified (3) Urinary retention: Status: Resolved Category: Medical Code(s): R33.9 - Retention of urine, unspecified (4) Hypokalemia: Status: Acute Category: Medical Code(s): E87.6 - Hypokalemia (5) Weakness: Status: Acute Category: Medical Code(s): R53.1 - Weakness (6) Anemia: Status: Acute Category: Medical Code(s): D64.9 - Anemia, unspecified (7) Diabetes mellitus, type 2: Status: Acute Qualifiers: Diabetes mellitus terminal press operator insulin use: without fdc use Diabetes mellitus complication status: with other specified complication Qualified Code(s): E11.69 - Type 2 diabetes mellitus with other specified complication Category: Medical Code(s): E11.9 - Type 2 diabetes mellitus without complications (8) Candidal dermatitis: Status: Acute Category: Medical Code(s): B37.2 - Candidiasis of skin and nail (9) Hypertension: Status: Acute Category: Medical Code(s): I10 - Essential (primary) hypertension (10) Anxiety: Status: Chronic Category: Medical Code(s): F41.9 - Anxiety disorder, unspecified (11) Respiratory alkalosis: Status: Acute Category: Medical Code(s): E87.3 - Alkalosis (12) Hypomagnesemia: Status: Acute Category: Medical Code(s): E83.42 - Hypomagnesemia Plan 73-year-old female with PMHx of insulin-dependent diabetes, resident [facility] [place] [facility]. Was brought by EMS to the ER for decreased p.o. intake and concern for urinary retention. Patient complaining some abdominal discomfort. Workup in the ER showing concern for UTI and KRISTIE. Medicine consulted for admission and further management. Discussed case with ER, request admission due to urinary retention, KRISTIE, UTI, and inability to return back to her [facility]. Medicine agreed to admit for further management. Admitted for observation. Case management consulted and assisting with evaluation of patient's guardianship status. Needs long-term care. Anticipate prolonged admission due to patient's clinical condition, inability to make decisions for herself, and need for long-term placement. Completed antibiotic course. Clinically stable. Problems addressed as follows: On presentation had KRISTIE and UTI. Has completed treatment for UTI. No symptoms at this time. Labs were ordered for this morning including CBC and CMP. Kidney function normal with creatinine 0.7, BUN 9 Electrolytes normal with sodium 136, potassium 4.1, chloride 106. Persistent anemia with hemoglobin 9.5. Continue daily multivitamin with iron. Lab holiday tomorrow, will obtain labs every 3 days. Continue magnesium supplementation with 400 mg p.o. twice daily Anxiety: Continue BuSpar 10 mg twice daily, Ativan 0.25 mg twice daily, and Zoloft 100 mg daily Hypertension and sinus tachycardia: Continue metoprolol. Urinary retention: Appears to have resolved. Was seen by urology this visit. No residual urine on in and out cathing 1 week ago. Has done well with reminders to urinate frequently. Continue tamsulosin 0.4 mg twice daily. Hx of NIDDM: A1c 4.9 during last admission.continue metformin 500 mg orally once daily. Morning glucose 130 PLOV for dvt ppx protonix Full code regular diet PT and OT working with patient. Case management assisting with decision making capacity/potential guardianship for referral to rehab.
--- NOTE | 2024-03-09 07:50 | P.PN_ITS ---
Subjective *Date: 03/09/24 *Time: 07:50 Interval history: Patient doing well. No complaints. Tolerating p.o. intake. Voiding independently. Awaiting guardianship. Stable on room air. Medical Exam Vital signs and Labs for Last 24 Hours: Vital Signs Temp Pulse Pulse Resp BP Pulse Ox O2 Del Method 03/09/24 06:52 Room Air 03/09/24 05:00 Room Air 03/09/24 04:00 97.9 F 74 16 108/57 L 98 Room Air 03/09/24 02:56 Room Air 03/09/24 00:57 Room Air 03/08/24 22:56 Room Air 03/08/24 21:00 Room Air 03/08/24 20:00 Room Air 03/08/24 18:35 Room Air 03/08/24 16:51 Room Air 03/08/24 15:58 98.6 F 74 18 104/54 L 99 Room Air 03/08/24 15:00 Room Air 03/08/24 13:00 Room Air 03/08/24 11:00 Room Air 03/08/24 09:00 Room Air 03/08/24 08:00 Room Air 03/08/24 08:00 98.8 F 79 20 96/51 L 97 Room Air Intake and Output 03/08/24 03/08/24 03/09/24 15:59 23:59 07:59 Intake Total 1546 / 3206 1200 / 3206 240 / 240 Output Total 0 / 0 0 / 0 0 / 0 Balance 1546 / 3206 1200 / 3206 240 / 240 Intake: Intake, Oral Amount 1546 / 3206 1200 / 3206 240 / 240 Output: Output, Urine Amount 0 / 0 0 / 0 0 / 0 Other: Number of Unmeasured Voids 1 1 1 Number of Bowel Movements 1 Weight 66.179 kg Patient Weight 03/09/24 23:59 Weight 66.179 kg Laboratory Results - last 24 hr 03/09/24 05:31: WBC 4.6 L, RBC 2.94 L, Hgb 9.5 L, Hct 29.0 L, MCV 98.6, MCH 32.2 H, MCHC 32.7, RDW 15.1, Plt Count 235, MPV 9.3, Neut % (Auto) 39.8, Lymph % (Auto) 45.9, [place] % (Auto) 7.9, Eos % (Auto) 5.8, Baso % (Auto) 0.6, Neut # (Auto) 1.8, Lymph # (Auto) 2.1, [place] # (Auto) 0.4, Eos # (Auto) 0.3, Baso # (Auto) 0.0, Sodium 136, Potassium 4.1, Chloride 106, Carbon Dioxide 25, Anion Gap 9.1, BUN 9, Creatinine 0.70, Estimated Creat Clear 52, Estimated GFR 82, Est GFR ( Amer) 99, Glucose 130 H, Calcium 8.6, Total Bilirubin 0.2, AST 31, ALT 19, Alkaline Phosphatase 50, Total Protein 5.4 L, Albumin 3.0 L, Globulin 2.4, Albumin/Globulin Ratio 1.3 I & O for Labs for Last 24 Hours: Intake & Output 03/06/24 03/07/24 03/08/24 03/09/24 23:59 23:59 23:59 23:59 Intake Total 1649 2250 / 2470 2966 / 3206 240 / 240 Output Total 0 / 0 0 / 0 0 / 0 0 / 0 Balance 1649 2250 / 2470 2966 / 3206 240 / 240 Weight 65.346 kg 65.091 kg 66.395 kg 66.179 kg Constitutional: Present no acute distress, average body habitus and cooperative Head: Present atraumatic and normocephalic ENT: Present normal exam Respiratory: Present normal respiratory effort; Absent rhonchi, wheezes or crackles Cardiac: Present Reg Rate and Rhythm GI: Present soft and normal bowel sounds; Absent distention or tenderness Extremities: Present normal inspection and full ROM; Absent edema Skin: Present intact; Absent erythema Neuro: Present Essential Tremor, Grossly Intact, alert, awake and moves all extremities Comment:: Oriented to self only Assessment and Plan *Assessment and plan (1) UTI (urinary tract infection): Status: Acute Category: Medical Code(s): N39.0 - Urinary tract infection, site not specified (2) KRISTIE (acute kidney injury): Status: Resolved Category: Medical Code(s): N17.9 - Acute kidney failure, unspecified (3) Urinary retention: Status: Resolved Category: Medical Code(s): R33.9 - Retention of urine, unspecified (4) Hypokalemia: Status: Acute Category: Medical Code(s): E87.6 - Hypokalemia (5) Weakness: Status: Acute Category: Medical Code(s): R53.1 - Weakness (6) Anemia: Status: Acute Category: Medical Code(s): D64.9 - Anemia, unspecified (7) Diabetes mellitus, type 2: Status: Acute Qualifiers: Diabetes mellitus boiler operator helper insulin use: without boiler operator helper use Diabetes mellitus complication status: with other specified complication Qualified Code(s): E11.69 - Type 2 diabetes mellitus with other specified complication Category: Medical Code(s): E11.9 - Type 2 diabetes mellitus without complications (8) Candidal dermatitis: Status: Acute Category: Medical Code(s): B37.2 - Candidiasis of skin and nail (9) Hypertension: Status: Acute Category: Medical Code(s): I10 - Essential (primary) hypertension (10) Anxiety: Status: Chronic Category: Medical Code(s): F41.9 - Anxiety disorder, unspecified (11) Respiratory alkalosis: Status: Acute Category: Medical Code(s): E87.3 - Alkalosis (12) Hypomagnesemia: Status: Acute Category: Medical Code(s): E83.42 - Hypomagnesemia Plan 73-year-old female with PMHx of insulin-dependent diabetes, [facility] Was brought by EMS to the ER for decreased p.o. intake and concern for urinary retention. Patient complaining some abdominal discomfort. Workup in the ER showing concern for UTI and KRISTIE. Medicine consulted for admission and further management. Discussed case with ER, request admission due to urinary retention, KRISTIE, UTI, and inability to return back [place] [facility] [facility]. Medicine agreed to admit for further management. Admit remy for observation. Case management consulted and assisting with evaluation of patient's guardianship status. Needs long-term care. Anticipate prolonged admission due to patient's clinical condition, inability to make decisions for herself, and need for long-term placement. Completed antibiotic course. Clinically stable. Problems addressed as follows: On presentation had KRISTIE and UTI. Has completed treatment for UTI. No symptoms at this time. Labs were ordered for this morning including CBC and CMP. Kidney function normal with creatinine 0.7, BUN 9 Electrolytes normal with sodium 136, potassium 4.1, chloride 106. Persistent anemia with hemoglobin 9.5. Continue daily multivitamin with iron. Lab holiday tomorrow, will obtain labs every 3 days. Continue magnesium supplementation with 400 mg p.o. twice daily Anxiety: Continue BuSpar 10 mg twice daily, Ativan 0.25 mg twice daily, and Zoloft 100 mg daily Hypertension and sinus tachycardia: Continue metoprolol. Urinary retention: Appears to have resolved. Was seen by urology this visit. No residual urine on in and out cathing 1 week ago. Has done well with reminders to urinate frequently. Continue tamsulosin 0.4 mg twice daily. Hx of NIDDM: A1c 4.9 during last admission.continue metformin 500 mg orally once daily. Morning glucose 130 PLOV for dvt ppx protonix Full code regular diet PT and OT working with patient. Case management assisting with decision making capacity/potential guardianship for referral to rehab.
[2024-03-09 08:00] VITALS: BP 109/44; PULSE 73; RESP 18; TEMP 36.8; O2SAT 100
[2024-03-09] MEDS: BUSPIRONE HCL 10 MG TABLET PO ×2 (08:21→20:42)
[2024-03-09] MEDS: FUROSEMIDE 40 MG TABLET PO (08:21)
[2024-03-09] MEDS: ENOXAPARIN 40MG/0.4ML SYRINGE 40 MG SQ (08:21)
[2024-03-09] MEDS: ASPIRIN 81MG CHEWABLE TABLET 81 MG PO (08:21)
[2024-03-09] MEDS: ASCORBIC ACID 500MG TAB 500 MG PO ×2 (08:21→20:42)
[2024-03-09] MEDS: FAMOTIDINE 20MG TABLET 20 MG PO ×2 (08:21→20:42)
[2024-03-09] MEDS: NYSTATIN TOPICAL POWDER 30GM TP ×2 (08:22→20:42)
[2024-03-09] MEDS: MAGNESIUM OXIDE 400MG TABLET 400 MG PO ×2 (08:22→20:42)
[2024-03-09] MEDS: METOPROLOL TARTRATE 25MG TABLET 25 MG PO ×2 (08:22→20:42)
[2024-03-09] MEDS: SERTRALINE 100MG TABLET 100 MG PO (08:22)
[2024-03-09] MEDS: TAMSULOSIN 0.4MG CAPSULE 0.400000000000000022 MG PO ×2 (08:22→20:42)
[2024-03-09] MEDS: LORazepam 0.5MG TABLET 0.25 MG PO ×2 (08:25→20:42)
[2024-03-09 16:00] VITALS: BP 119/65; PULSE 83; RESP 19; TEMP 37.1; O2SAT 99
[2024-03-09] MEDS: PRENATAL MULTIVITAMIN W/IRON 1 EACH PO (17:27)
--- NOTE | 2024-03-09 18:12 | PC.NURSE ---
ALERT TO PERSON T/O SHIFT. TOLERATING RA WELL. HAS BEEN UP TO BATHROOM WITH STANDBY ASSIST. HAS VOIDED AND HAD A BM. HAS HAD NO NEEDS OR C/O THUS FAR THIS SHIFT. UP TO CHAIR FOR QUITE A WHILE TODAY. VSS.
[2024-03-09 20:00] VITALS: BP 113/64; PULSE 73; RESP 18; TEMP 37.1; O2SAT 99
[2024-03-10 04:00] VITALS: BP 99/57; PULSE 71; RESP 18; TEMP 36.5; O2SAT 98; BMI 25.4
--- NOTE | 2024-03-10 05:21 | PC.NURSE ---
Patient is alert and oriented to her self and her birthday. Patient's lung sounds were clear, and her heart sounds are normal with S1 & S2 sounds. Patient's bowel sounds are active in all four quadrants. Patient has been very ambulatory during this shift; she has been voiding several times and has had a bowel movement this shift. She has also had a shower today. Patient has not complained of having any pain; pink discoloration (scarring) in her inner thigh is noted and is clean and intact. Patient received chocolate pudding and a Diet Pepsi for a bedtime snack. Patient tolerates room air well and ambulates well. She has rested great throughout the shift. Patient does not have an IV in place. She still awaits guardianship. No acute changes were noted. Bed alarm is functioning and call light is within reach.
[2024-03-10] MEDS: METFORMIN 500MG TABLET 500 MG PO (06:35)
[2024-03-10 08:00] VITALS: BP 106/61; PULSE 71; RESP 20; TEMP 36.9; O2SAT 99
[2024-03-10] MEDS: ASCORBIC ACID 500MG TAB 500 MG PO ×2 (08:07→20:44)
[2024-03-10] MEDS: BUSPIRONE HCL 10 MG TABLET PO ×2 (08:08→20:44)
[2024-03-10] MEDS: NYSTATIN TOPICAL POWDER 30GM TP ×2 (08:08→20:45)
[2024-03-10] MEDS: MAGNESIUM OXIDE 400MG TABLET 400 MG PO ×2 (08:08→20:45)
[2024-03-10] MEDS: ENOXAPARIN 40MG/0.4ML SYRINGE 40 MG SQ (08:08)
[2024-03-10] MEDS: ERGOCALCIFEROL 50,000 UNITS (1.25MG) CAPSULE 50000 UNIT PO (08:08)
[2024-03-10] MEDS: METOPROLOL TARTRATE 25MG TABLET 25 MG PO ×2 (08:08→20:45)
[2024-03-10] MEDS: FAMOTIDINE 20MG TABLET 20 MG PO ×2 (08:08→20:45)
[2024-03-10] MEDS: LORazepam 0.5MG TABLET 0.25 MG PO ×2 (08:08→20:45)
[2024-03-10] MEDS: ASPIRIN 81MG CHEWABLE TABLET 81 MG PO (08:08)
[2024-03-10] MEDS: FUROSEMIDE 40 MG TABLET PO (08:08)
[2024-03-10] MEDS: TAMSULOSIN 0.4MG CAPSULE 0.400000000000000022 MG PO ×2 (08:09→20:45)
[2024-03-10] MEDS: SERTRALINE 100MG TABLET 100 MG PO (08:09)
--- NOTE | 2024-03-10 08:19 | EXP.ACUTE.PN ---
Subjective *Date: 03/10/24 *Time: 17:19 Interval history: Patient doing well. No complaints. Tolerating p.o. intake. Voiding independently. Awaiting guardianship. Stable on room air. Medical Exam Vital signs and Labs for Last 24 Hours: Vital Signs Temp Pulse Pulse Resp BP Pulse Ox O2 Del Method 03/10/24 08:00 98.5 F 71 20 106/61 L 99 Room Air 03/10/24 06:41 Room Air 03/10/24 04:48 Room Air 03/10/24 04:00 97.7 F 71 18 99/57 L 98 Room Air 03/10/24 03:00 Room Air 03/10/24 01:00 Room Air 03/09/24 22:48 Room Air 03/09/24 21:00 Room Air 03/09/24 20:00 99 Room Air 03/09/24 20:00 98.7 F 73 18 113/64 99 Room Air 03/09/24 18:50 Room Air 03/09/24 16:31 Room Air 03/09/24 16:00 98.8 F 83 19 119/65 99 Room Air 03/09/24 14:58 Room Air 03/09/24 13:00 Room Air 03/09/24 11:00 Room Air 03/09/24 08:39 Room Air Intake and Output 03/09/24 03/10/24 03/10/24 23:59 07:59 15:59 Intake Total 500 / 2142 222 / 222 Output Total 0 / 0 0 / 0 Balance 500 / 2142 222 / 222 Intake: Intake, Oral Amount 500 / 2142 222 / 222 Output: Output, Urine Amount 0 / 0 0 / 0 Other: Number of Unmeasured Voids 1 1 Number of Bowel Movements 1 Weight 65.091 kg Patient Weight 03/10/24 23:59 Weight 65.091 kg I & O for Labs for Last 24 Hours: Intake & Output 03/07/24 03/08/24 03/09/24 03/10/24 23:59 23:59 23:59 23:59 Intake Total 2250 / 2470 2966 / 3206 1920 / 2142 222 / 222 Output Total 0 / 0 0 / 0 0 / 0 0 / 0 Balance 2250 / 2470 2966 / 3206 1920 / 2142 222 / 222 Weight 65.091 kg 66.395 kg 66.179 kg 65.091 kg Constitutional: Present no acute distress, average body habitus and cooperative Head: Present atraumatic and normocephalic ENT: Present normal exam Respiratory: Present normal respiratory effort; Absent rhonchi, wheezes or crackles Cardiac: Present Reg Rate and Rhythm GI: Present soft and normal bowel sounds; Absent distention or tenderness Extremities: Present normal inspection and full ROM; Absent edema Skin: Present intact; Absent erythema Neuro: Present Essential Tremor, Grossly Intact, alert, awake and moves all extremities Comment:: Oriented to self only Assessment and Plan *Assessment and plan (1) UTI (urinary tract infection): Status: Acute Category: Medical Code(s): N39.0 - Urinary tract infection, site not specified (2) KRISTIE (acute kidney injury): Status: Resolved Category: Medical Code(s): N17.9 - Acute kidney failure, unspecified (3) Urinary retention: Status: Resolved Category: Medical Code(s): R33.9 - Retention of urine, unspecified (4) Hypokalemia: Status: Acute Category: Medical Code(s): E87.6 - Hypokalemia (5) Weakness: Status: Acute Category: Medical Code(s): R53.1 - Weakness (6) Anemia: Status: Acute Category: Medical Code(s): D64.9 - Anemia, unspecified (7) Diabetes mellitus, type 2: Status: Acute Qualifiers: Diabetes mellitus complication status: with other specified complication Diabetes mellitus snf insulin use: without snf use Qualified Code(s): E11.69 - Type 2 diabetes mellitus with other specified complication Category: Medical Code(s): E11.9 - Type 2 diabetes mellitus without complications (8) Candidal dermatitis: Status: Acute Category: Medical Code(s): B37.2 - Candidiasis of skin and nail (9) Hypertension: Status: Acute Category: Medical Code(s): I10 - Essential (primary) hypertension (10) Anxiety: Status: Chronic Category: Medical Code(s): F41.9 - Anxiety disorder, unspecified (11) Respiratory alkalosis: Status: Acute Category: Medical Code(s): E87.3 - Alkalosis (12) Hypomagnesemia: Status: Acute Category: Medical Code(s): E83.42 - Hypomagnesemia Plan 73-year-old female with PMHx of insulin-dependent diabetes, resident from [facility], [facility] [place]. Was brought by EMS to the ER for decreased p.o. intake and concern for urinary retention. Patient complaining some abdominal discomfort. Workup in the ER showing concern for UTI and KRISTIE. Medicine consulted for admission and further management. Discussed case with ER, request admission due to urinary retention, KRISTIE, UTI, and inability to return back to her personal[facility]. Medicine agreed to admit for further management. Admitted for observation. Case management consulted and assisting with evaluation of patient's guardianship status. Needs long-term care. Anticipate prolonged admission due to patient's clinical condition, inability to make decisions for herself, and need for long-term placement. Completed antibiotic course. Clinically stable. Problems addressed as follows: On presentation had KRISTIE and UTI. Has completed treatment for UTI. No symptoms at this time. Obtaining labs every 3 days Continue magnesium supplementation with 400 mg p.o. twice daily Anxiety: Continue BuSpar 10 mg twice daily, Ativan 0.25 mg twice daily, and Zoloft 100 mg daily Hypertension and sinus tachycardia: Continue metoprolol. Urinary retention: Appears to have resolved. Was seen by urology this visit. No residual urine on in and out cathing 1 week ago. Has done well with reminders to urinate frequently. Continue tamsulosin 0.4 mg twice daily. Hx of NIDDM: A1c 4.9 during last admission.continue metformin 500 mg orally once daily. Morning glucose 130 PLOV for dvt ppx protonix Full code regular diet PT and OT working with patient. Case management assisting with decision making capacity/potential guardianship for referral to rehab.
[2024-03-10 16:00] VITALS: BP 113/75; PULSE 75; RESP 20; TEMP 37; O2SAT 90
[2024-03-10] MEDS: PRENATAL MULTIVITAMIN W/IRON 1 EACH PO (16:52)
--- NOTE | 2024-03-10 17:37 | PC.NURSE ---
ALERT TO SELF. HAS BEEN AMBULATING TO BR WITH STANDBY ASSIST. HAS VOIDED AND HAD BM. TOLERATING RA WELL. NO NEEDS OR C/O NOTED. HAS RESTED INTERMITTENTLY T/O SHIFT. VSS.
[2024-03-10 20:00] VITALS: BP 131/54; PULSE 72; RESP 16; TEMP 36.4; O2SAT 99
[2024-03-11 04:00] VITALS: BP 117/60; PULSE 74; RESP 18; TEMP 37.1; O2SAT 97; BMI 26.1
--- NOTE | 2024-03-11 05:20 | PC.NURSE ---
Patient is alert to self and tolerating room air. She has ambulated to the bathroom two times this shift with standby assist. Patient has had no complaints at this point, call light within reach.
[2024-03-11] MEDS: METFORMIN 500MG TABLET 500 MG PO (06:25)
[2024-03-11 08:00] VITALS: BP 113/48; PULSE 73; RESP 18; TEMP 36.6; O2SAT 99
[2024-03-11] MEDS: ASCORBIC ACID 500MG TAB 500 MG PO ×2 (08:26→20:06)
[2024-03-11] MEDS: SERTRALINE 100MG TABLET 100 MG PO (08:26)
[2024-03-11] MEDS: MAGNESIUM OXIDE 400MG TABLET 400 MG PO ×2 (08:26→20:05)
[2024-03-11] MEDS: METOPROLOL TARTRATE 25MG TABLET 25 MG PO ×2 (08:26→20:04)
[2024-03-11] MEDS: FUROSEMIDE 40 MG TABLET PO (08:26)
[2024-03-11] MEDS: BUSPIRONE HCL 10 MG TABLET PO ×2 (08:26→20:06)
[2024-03-11] MEDS: TAMSULOSIN 0.4MG CAPSULE 0.400000000000000022 MG PO ×2 (08:26→20:05)
[2024-03-11] MEDS: ASPIRIN 81MG CHEWABLE TABLET 81 MG PO (08:26)
[2024-03-11] MEDS: ENOXAPARIN 40MG/0.4ML SYRINGE 40 MG SQ (08:26)
[2024-03-11] MEDS: FAMOTIDINE 20MG TABLET 20 MG PO ×2 (08:26→20:06)
[2024-03-11] MEDS: LORazepam 0.5MG TABLET 0.25 MG PO ×2 (08:32→20:06)
[2024-03-11] MEDS: NYSTATIN TOPICAL POWDER 30GM TP ×2 (09:29→20:06)
--- NOTE | 2024-03-11 12:29 | P.PN_ITS ---
Subjective *Date: 03/11/24 *Time: 17:24 Interval history: Patient doing well. No complaints. Tolerating p.o. intake. Voiding independently. Awaiting guardianship. Stable on room air. Medical Exam Vital signs and Labs for Last 24 Hours: Vital Signs Temp Pulse Pulse Resp BP Pulse Ox O2 Del Method 03/11/24 08:33 Room Air 03/11/24 08:00 97.8 F 73 18 113/48 L 99 Room Air 03/11/24 06:53 Room Air 03/11/24 05:00 Room Air 03/11/24 04:00 98.7 F 74 18 117/60 97 Room Air 03/11/24 03:00 Room Air 03/11/24 01:00 Room Air 03/10/24 23:00 Room Air 03/10/24 21:00 Room Air 03/10/24 20:00 97.6 F 72 16 131/54 L 99 Room Air 03/10/24 20:00 Room Air 03/10/24 18:31 Room Air 03/10/24 16:49 Room Air 03/10/24 16:00 98.6 F 75 20 113/75 90 L Room Air 03/10/24 15:00 Room Air 03/10/24 13:00 Room Air Intake and Output 03/10/24 03/11/24 03/11/24 23:59 07:59 15:59 Intake Total 120 / 1832 350 / 830 480 / 830 Output Total 0 / 400 400 / 400 Balance 120 / 1432 -50 / 430 480 / 430 Intake: Intake, Oral Amount 120 / 1832 350 / 830 480 / 830 Output: Output, Urine Amount 0 / 400 400 / 400 Other: Number of Voids 2 Number of Unmeasured Voids 1 1 Weight 66.905 kg Patient Weight 03/11/24 23:59 Weight 66.905 kg I & O for Labs for Last 24 Hours: Intake & Output 03/08/24 03/09/24 03/10/24 03/11/24 23:59 23:59 23:59 23:59 Intake Total 2966 / 3206 1920 / 2142 1482 / 1832 830 / 830 Output Total 0 / 0 0 / 0 0 / 400 400 / 400 Balance 2966 / 3206 1920 / 2142 1482 / 1432 430 / 430 Weight 66.395 kg 66.179 kg 65.091 kg 66.905 kg Constitutional: Present no acute distress, average body habitus and cooperative Head: Present atraumatic and normocephalic ENT: Present normal exam Respiratory: Present normal respiratory effort; Absent rhonchi, wheezes or crackles Cardiac: Present Reg Rate and Rhythm GI: Present soft and normal bowel sounds; Absent distention or tenderness Extremities: Present normal inspection and full ROM; Absent edema Skin: Present intact; Absent erythema Neuro: Present Essential Tremor, Grossly Intact, alert, awake and moves all extremities Comment:: Oriented to self only Assessment and Plan *Assessment and plan (1) Weakness: Status: Acute Category: Medical Code(s): R53.1 - Weakness (2) UTI (urinary tract infection): Status: Resolved Category: Medical Code(s): N39.0 - Urinary tract infection, site not specified (3) KRISTIE (acute kidney injury): Status: Resolved Category: Medical Code(s): N17.9 - Acute kidney failure, unspecified (4) Urinary retention: Status: Resolved Category: Medical Code(s): R33.9 - Retention of urine, unspecified (5) Hypokalemia: Status: Resolved Category: Medical Code(s): E87.6 - Hypokalemia (6) Anemia: Status: Chronic Category: Medical Code(s): D64.9 - Anemia, unspecified (7) Diabetes mellitus, type 2: Status: Chronic Qualifiers: Diabetes mellitus retirement insulin use: without equipment operator intermodal yard use Diabetes mellitus complication status: with other specified complication Qualified Code(s): E11.69 - Type 2 diabetes mellitus with other specified complication Category: Medical Code(s): E11.9 - Type 2 diabetes mellitus without complications (8) Candidal dermatitis: Status: Resolved Category: Medical Code(s): B37.2 - Candidiasis of skin and nail (9) Hypertension: Status: Chronic Category: Medical Code(s): I10 - Essential (primary) hypertension (10) Anxiety: Status: Chronic Category: Medical Code(s): F41.9 - Anxiety disorder, unspecified (11) Respiratory alkalosis: Status: Resolved Category: Medical Code(s): E87.3 - Alkalosis (12) Hypomagnesemia: Status: Resolved Category: Medical Code(s): E83.42 - Hypomagnesemia Plan 73-year-old female with PMHx of insulin-dependent diabetes, resident from [facility], [facility] [place]. Was brought by EMS to the ER for decreased p.o. intake and concern for urinary retention. Patient complaining some abdominal discomfort. Workup in the ER showing concern for UTI and KRISTIE. Medicine consulted for admission and further management. Discussed case with ER, request admission due to urinary retention, KRISTIE, UTI, and inability to return back to her personal[facility]. Medicine agreed to admit for further management. Admitted for observation. Case management consulted and assisting with evaluation of patient's guardianship status. Needs long-term care. Anticipate prolonged admission due to patient's clinical condition, inability to make decisions for herself, and need for long-term placement. Completed antibiotic course. Clinically stable. Problems addressed as follows: On presentation had KRISTIE and UTI. Has completed treatment for UTI. No symptoms at this time. Obtaining labs every 3 days, due on Friday Continue magnesium supplementation with 400 mg p.o. twice daily Anxiety: Continue BuSpar 10 mg twice daily, Ativan 0.25 mg twice daily, and Zoloft 100 mg daily Hypertension and sinus tachycardia: Continue metoprolol. Urinary retention: Appears to have resolved. Was seen by urology this visit. No residual urine on in and out cathing 1 week ago. Has done well with reminders to urinate frequently. Continue tamsulosin 0.4 mg twice daily. Hx of NIDDM: A1c 4.9 during last admission.continue metformin 500 mg orally once daily. Morning glucose 130 PLOV for dvt ppx protonix Full code regular diet PT and OT working with patient. Case management assisting with decision making capacity/potential guardianship for referral to rehab.
[2024-03-11 16:00] VITALS: BP 106/47; PULSE 73; RESP 20; TEMP 36.6; O2SAT 97
[2024-03-11] MEDS: PRENATAL MULTIVITAMIN W/IRON 1 EACH PO (17:55)
--- NOTE | 2024-03-11 17:56 | PC.NURSE ---
Pt is alert to self. She has denied any complaints thus far. She's been up to the chair all shift. She has ambulated to the bathroom with assist x1 and in the hallway w/PT, tolerated well. She remains on RA. Last bm 03/10. She is currently up to the chair, bed alarm in place.
[2024-03-11 20:00] VITALS: BP 123/51; PULSE 88; RESP 16; TEMP 36.5; O2SAT 99
[2024-03-12 04:00] VITALS: BP 107/55; PULSE 78; RESP 16; TEMP 37.1; O2SAT 94; BMI 26.6
[2024-03-12] MEDS: METFORMIN 500MG TABLET 500 MG PO (06:05)
[2024-03-12 08:00] VITALS: BP 108/60; PULSE 70; RESP 17; TEMP 36.9; O2SAT 98
[2024-03-12] MEDS: ONDANSETRON 4MG ODT 4 MG SL (08:04)
[2024-03-12] MEDS: ENOXAPARIN 40MG/0.4ML SYRINGE 40 MG SQ (09:41)
[2024-03-12] MEDS: FAMOTIDINE 20MG TABLET 20 MG PO ×2 (09:42→20:21)
[2024-03-12] MEDS: METOPROLOL TARTRATE 25MG TABLET 25 MG PO ×2 (09:42→20:21)
[2024-03-12] MEDS: BUSPIRONE HCL 10 MG TABLET PO ×2 (09:42→20:21)
[2024-03-12] MEDS: ASCORBIC ACID 500MG TAB 500 MG PO ×2 (09:42→20:21)
[2024-03-12] MEDS: SERTRALINE 100MG TABLET 100 MG PO (09:42)
[2024-03-12] MEDS: MAGNESIUM OXIDE 400MG TABLET 400 MG PO ×2 (09:42→20:24)
[2024-03-12] MEDS: FUROSEMIDE 40 MG TABLET PO (09:42)
[2024-03-12] MEDS: TAMSULOSIN 0.4MG CAPSULE 0.400000000000000022 MG PO ×2 (09:42→20:21)
[2024-03-12] MEDS: ASPIRIN 81MG CHEWABLE TABLET 81 MG PO (09:42)
[2024-03-12] MEDS: NYSTATIN TOPICAL POWDER 30GM TP ×2 (09:42→20:27)
[2024-03-12] MEDS: LORazepam 0.5MG TABLET 0.25 MG PO ×2 (10:08→20:24)
[2024-03-12 16:00] VITALS: BP 113/63; PULSE 85; RESP 21; TEMP 36.4; O2SAT 96
[2024-03-12] MEDS: PRENATAL MULTIVITAMIN W/IRON 1 EACH PO (17:14)
--- NOTE | 2024-03-12 17:31 | EXP.ACUTE.PN ---
Subjective *Date: 03/12/24 *Time: 17:31 Interval history: Patient doing well. No complaints. Tolerating p.o. intake. Voiding independently. Awaiting guardianship. Stable on room air. Interacting well with staff. Working with therapy daily. Medical Exam Vital signs and Labs for Last 24 Hours: Vital Signs Temp Pulse Resp BP Pulse Ox O2 Del Method 03/12/24 17:00 Room Air 03/12/24 16:00 97.6 F 85 21 113/63 96 Room Air 03/12/24 15:00 Room Air 03/12/24 13:00 Room Air 03/12/24 11:00 Room Air 03/12/24 09:42 Room Air 03/12/24 09:00 Room Air 03/12/24 08:00 98.5 F 70 17 108/60 L 98 Room Air 03/12/24 06:52 Room Air 03/12/24 05:00 Room Air 03/12/24 04:00 98.8 F 78 16 107/55 L 94 L Room Air 03/12/24 03:00 Room Air 03/12/24 01:00 Room Air 03/11/24 23:00 Room Air 03/11/24 21:00 Room Air 03/11/24 20:00 97.7 F 88 16 123/51 L 99 Room Air 03/11/24 20:00 Room Air 03/11/24 18:42 Room Air Intake and Output 03/12/24 03/12/24 03/12/24 07:59 15:59 23:59 Intake Total 300 / 1704 960 / 1704 444 / 1704 Output Total 0 / 0 0 / 0 Balance 300 / 1704 960 / 1704 444 / 1704 Intake: Intake, Oral Amount 300 / 1704 960 / 1704 444 / 1704 Output: Output, Urine Amount 0 / 0 0 / 0 Other: Number of Voids 1 Number of Unmeasured Voids 1 1 Number of Bowel Movements 1 Weight 68.124 kg Patient Weight 03/12/24 23:59 Weight 68.124 kg I & O for Labs for Last 24 Hours: Intake & Output 03/09/24 03/10/24 03/11/24 03/12/24 23:59 23:59 23:59 23:59 Intake Total 1920 / 2142 1482 / 1832 1670 / 1970 1704 / 1704 Output Total 0 / 0 0 / 400 400 / 400 0 / 0 Balance 0 / 2 1482 / 1432 1270 / 1570 1704 / 1704 Weight 66.179 kg 65.091 kg 66.905 kg 68.124 kg Constitutional: Present no acute distress, average body habitus and cooperative Head: Present atraumatic and normocephalic ENT: Present normal exam Respiratory: Present normal respiratory effort; Absent rhonchi, wheezes or crackles Cardiac: Present Reg Rate and Rhythm GI: Present soft and normal bowel sounds; Absent distention or tenderness Extremities: Present normal inspection and full ROM; Absent edema Skin: Present intact; Absent erythema Neuro: Present Essential Tremor, Grossly Intact, alert, awake and moves all extremities Comment:: Oriented to self only Assessment and Plan *Assessment and plan (1) Weakness: Status: Acute Category: Medical Code(s): R53.1 - Weakness (2) UTI (urinary tract infection): Status: Resolved Category: Medical Code(s): N39.0 - Urinary tract infection, site not specified (3) KRISTIE (acute kidney injury): Status: Resolved Category: Medical Code(s): N17.9 - Acute kidney failure, unspecified (4) Urinary retention: Status: Resolved Category: Medical Code(s): R33.9 - Retention of urine, unspecified (5) Hypokalemia: Status: Resolved Category: Medical Code(s): E87.6 - Hypokalemia (6) Anemia: Status: Chronic Category: Medical Code(s): D64.9 - Anemia, unspecified (7) Diabetes mellitus, type 2: Status: Chronic Qualifiers: Diabetes mellitus technician terminal and repeater insulin use: without technician terminal and repeater use Diabetes mellitus complication status: with other specified complication Qualified Code(s): E11.69 - Type 2 diabetes mellitus with other specified complication Category: Medical Code(s): E11.9 - Type 2 diabetes mellitus without complications (8) Candidal dermatitis: Status: Resolved Category: Medical Code(s): B37.2 - Candidiasis of skin and nail (9) Hypertension: Status: Chronic Category: Medical Code(s): I10 - Essential (primary) hypertension (10) Anxiety: Status: Chronic Category: Medical Code(s): F41.9 - Anxiety disorder, unspecified (11) Respiratory alkalosis: Status: Resolved Category: Medical Code(s): E87.3 - Alkalosis (12) Hypomagnesemia: Status: Resolved Category: Medical Code(s): E83.42 - Hypomagnesemia Plan 73-year-old female with PMHx of insulin-dependent diabetes, resident from [facility], [facility] [place]. Was brought by EMS to the ER for decreased p.o. intake and concern for urinary retention. Patient complaining some abdominal discomfort. Workup in the ER showing concern for UTI and KRISTIE. Medicine consulted for admission and further management. Discussed case with ER, request admission due to urinary retention, KRISTIE, UTI, and inability to return back to her personal-custod[facility]. Medicine agreed to admit for further management. Admitted for observation. Case management consulted and assisting with evaluation of patient's guardianship status. Needs long-term care. Anticipate prolonged admission due to patient's clinical condition, inability to make decisions for herself, and need for long-term placement. Completed antibiotic course. Clinically stable. Problems addressed as follows: On presentation had KRISTIE and UTI. Has completed treatment for UTI. No symptoms at this time. I have ordered CBC, BMP, magnesium for the morning. Continue magnesium supplementation with 400 mg p.o. twice daily Anxiety: Condition stable, tolerating meds well. Continue BuSpar 10 mg twice daily, Ativan 0.25 mg twice daily, and Zoloft 100 mg daily Hypertension and sinus tachycardia: Continue metoprolol. Urinary retention: Appears to have resolved. Was seen by urology this visit. No residual urine on in and out cathing 1 week ago. Has done well with reminders to urinate frequently. Continue tamsulosin 0.4 mg twice daily. Hx of NIDDM: A1c 4.9 during last admission.continue metformin 500 mg orally once daily. Morning glucose 130 PLOV for dvt ppx protonix Full code regular diet PT and OT working with patient. Case management assisting with decision making capacity/potential guardianship for referral to rehab.
--- NOTE | 2024-03-12 18:12 | PC.NURSE ---
Pt has done well today. Ambulated with therapy. She did have one episode of vomiting this am while she was anxious. Medicated PRN. Still awaiting guardianship.
[2024-03-12 20:00] VITALS: BP 97/51; PULSE 78; RESP 16; TEMP 36.6; O2SAT 95
[2024-03-13 04:00] VITALS: BP 112/63; PULSE 71; RESP 16; TEMP 36.9; O2SAT 94; BMI 26.6
[2024-03-13] MEDS: METFORMIN 500MG TABLET 500 MG PO (06:03)
[2024-03-13 08:00] VITALS: BP 99/57; PULSE 70; RESP 20; TEMP 36.8; O2SAT 95
[2024-03-13 08:16] LABS: Basophils % 0.7 % (0.1-2.0); Eosinophils # 0.2 K/mm3 (0.0-0.4); Eosinophils % 5.8 % (0.1-12.0); Hemoglobin 10.5 g/dL (12.2-16.2); Lymphocytes # 1.8 K/mm3 (0.7-4.5); Lymphocytes % 44.8 % (10-50); Mean Corpuscular HGB Conc 31.9 g/dL (31.8-35.4); Mean Corpuscular Hemoglobin 32.3 pg (27.0-31.2); Mean Corpuscular Volume 101.2 fl (81-99); Mean Platelet Volume 8.4 fl (7.4-10.4); Monocytes # 0.2 K/mm3 (0.1-1.0); Monocytes % 5.2 % (1.7-9.3); Neutrophils # 1.8 K/mm3 (1.8-7.8); Neutrophils % 43.4 % (37.0-80.0); Platelet Count 230 K/mm3 (142-424); Red Blood Count 3.26 M/mm3 (4.20-5.40); Red Cell Distribution Width 15.3 % (11.5-17.5)
[2024-03-13 08:24] LABS: Chloride 105 mmol/L (98-107); Sodium 136 mmol/L (136-145)
[2024-03-13 08:26] LABS: Blood Urea Nitrogen 11 mg/dl (7-17); Creatinine Clearance Estimated 53 mL/min (50-200); Estimated Glomerular Filt Rate 61 ml/min (>60); GFR (African American) 74 ML/MIN (>60)
[2024-03-13 08:27] LABS: Calcium 9.3 mg/dl (8.4-10.2); Carbon Dioxide 27 mmol/L (22.0-30.0); Glucose 144 mg/dl (74-100)
[2024-03-13] MEDS: SERTRALINE 100MG TABLET 100 MG PO (08:33)
[2024-03-13] MEDS: METOPROLOL TARTRATE 25MG TABLET 25 MG PO ×2 (08:33→20:30)
[2024-03-13] MEDS: BUSPIRONE HCL 10 MG TABLET PO ×2 (08:33→20:31)
[2024-03-13] MEDS: MAGNESIUM OXIDE 400MG TABLET 400 MG PO ×2 (08:33→20:30)
[2024-03-13] MEDS: TAMSULOSIN 0.4MG CAPSULE 0.400000000000000022 MG PO ×2 (08:33→20:29)
[2024-03-13] MEDS: ASCORBIC ACID 500MG TAB 500 MG PO ×2 (08:34→20:31)
[2024-03-13] MEDS: LORazepam 0.5MG TABLET 0.25 MG PO ×2 (08:34→20:29)
[2024-03-13] MEDS: ASPIRIN 81MG CHEWABLE TABLET 81 MG PO (08:34)
[2024-03-13] MEDS: FUROSEMIDE 40 MG TABLET PO (08:34)
[2024-03-13] MEDS: FAMOTIDINE 20MG TABLET 20 MG PO ×2 (08:34→20:30)
[2024-03-13] MEDS: ENOXAPARIN 40MG/0.4ML SYRINGE 40 MG SQ (08:35)
--- NOTE | 2024-03-13 12:30 | P.PN_ITS ---
Subjective *Date: 03/13/24 *Time: 12:30 Interval history: Patient doing well. No complaints. Tolerating p.o. intake. Voiding independently. Awaiting guardianship. Stable on room air. Interacting well with staff. Working with therapy daily. Medical Exam Vital signs and Labs for Last 24 Hours: Vital Signs Temp Pulse Resp BP Pulse Ox O2 Del Method 03/13/24 11:00 Room Air 03/13/24 09:00 Room Air 03/13/24 08:30 Room Air 03/13/24 08:00 98.2 F 70 20 99/57 L 95 Room Air 03/13/24 05:00 Room Air 03/13/24 04:00 98.4 F 71 16 112/63 94 L Room Air 03/13/24 03:00 Room Air 03/13/24 01:00 Room Air 03/12/24 23:00 Room Air 03/12/24 21:00 Room Air 03/12/24 20:00 97.9 F 78 16 97/51 L 95 Room Air 03/12/24 20:00 Room Air 03/12/24 18:41 Room Air 03/12/24 17:00 Room Air 03/12/24 16:00 97.6 F 85 21 113/63 96 Room Air 03/12/24 15:00 Room Air 03/12/24 13:00 Room Air Intake and Output 03/12/24 03/13/24 03/13/24 23:59 07:59 15:59 Intake Total 684 / 2144 200 / 1000 800 / 1000 Output Total 0 / 0 0 / 0 Balance 684 / 2144 200 / 1000 800 / 1000 Intake: Intake, Oral Amount 684 / 2144 200 / 1000 800 / 1000 Output: Output, Urine Amount 0 / 0 0 / 0 Other: Number of Voids 3 Number of Unmeasured Voids 1 1 Weight 68.124 kg Patient Weight 03/13/24 23:59 Weight 68.124 kg Laboratory Results - last 24 hr 03/13/24 07:20: WBC 4.0 L, RBC 3.26 L, Hgb 10.5 L, Hct 33.0 L, MCV 101.2 H, MCH 32.3 H, MCHC 31.9, RDW 15.3, Plt Count 230, MPV 8.4, Neut % (Auto) 43.4, Lymph % (Auto) 44.8, Elliott % (Auto) 5.2, Eos % (Auto) 5.8, Baso % (Auto) 0.7, Neut # (Auto) 1.8, Lymph # (Auto) 1.8, Elliott # (Auto) 0.2, Eos # (Auto) 0.2, Baso # (Auto) 0.0, Sodium 136, Potassium 4.0, Chloride 105, Carbon Dioxide 27, Anion Gap 8.0, BUN 11, Creatinine 0.90, Estimated Creat Clear 53, Estimated GFR 61, Est GFR ( Amer) 74, Glucose 144 H, Calcium 9.3, Magnesium 2.0 I & O for Labs for Last 24 Hours: Intake & Output 03/10/24 03/11/24 03/12/24 03/13/24 23:59 23:59 23:59 23:59 Intake Total 1482 / 1832 1670 / 1970 1943 / 2143 1000 / 1000 Output Total 0 / 400 400 / 400 0 / 0 0 / 0 Balance 1482 / 1432 1270 / 1570 1943 / 2143 1000 / 1000 Weight 65.091 kg 66.905 kg 68.124 kg 68.124 kg Constitutional: Present no acute distress, average body habitus and cooperative Head: Present atraumatic and normocephalic ENT: Present normal exam Respiratory: Present normal respiratory effort; Absent rhonchi, wheezes or crackles Cardiac: Present Reg Rate and Rhythm GI: Present soft and normal bowel sounds; Absent distention or tenderness Extremities: Present normal inspection and full ROM; Absent edema Skin: Present intact; Absent erythema Neuro: Present Essential Tremor, Grossly Intact, alert, awake and moves all extremities Comment:: Oriented to self only Assessment and Plan *Assessment and plan (1) Weakness: Status: Acute Category: Medical Code(s): R53.1 - Weakness (2) UTI (urinary tract infection): Status: Resolved Category: Medical Code(s): N39.0 - Urinary tract infection, site not specified (3) KRISTIE (acute kidney injury): Status: Resolved Category: Medical Code(s): N17.9 - Acute kidney failure, unspecified (4) Urinary retention: Status: Resolved Category: Medical Code(s): R33.9 - Retention of urine, unspecified (5) Hypokalemia: Status: Resolved Category: Medical Code(s): E87.6 - Hypokalemia (6) Anemia: Status: Chronic Category: Medical Code(s): D64.9 - Anemia, unspecified (7) Diabetes mellitus, type 2: Status: Chronic Qualifiers: Diabetes mellitus superintendent container terminal insulin use: without superintendent container terminal use Diabetes mellitus complication status: with other specified complication Qualified Code(s): E11.69 - Type 2 diabetes mellitus with other specified complication Category: Medical Code(s): E11.9 - Type 2 diabetes mellitus without complications (8) Candidal dermatitis: Status: Resolved Category: Medical Code(s): B37.2 - Candidiasis of skin and nail (9) Hypertension: Status: Chronic Category: Medical Code(s): I10 - Essential (primary) hypertension (10) Anxiety: Status: Chronic Category: Medical Code(s): F41.9 - Anxiety disorder, unspecified (11) Respiratory alkalosis: Status: Resolved Category: Medical Code(s): E87.3 - Alkalosis (12) Hypomagnesemia: Status: Resolved Category: Medical Code(s): E83.42 - Hypomagnesemia Plan 73-year-old female with PMHx of insulin-dependent diabetes[facility] Was [facility] by EMS to the ER for decreased p.o. intake and concern for urinary retention. Patient complaining some abdominal discomfort. Workup in the ER showing concern for UTI and KRISTIE. Medicine consulted for admission and further management. Discussed case with ER, request admission due to urinary retention, KRISTIE, UTI, and inability to return back to her [facility]. Medicine agreed to admit for further management. Admitted for observation. Case management consulted and assisting with evaluation of patient's guardianship status. Needs long-term care. Anticipate prolonged admission due to patient's clinical condition, inability to make decisions for herself, and need for long-term placement. Completed antibiotic course. Clinically stable. Problems addressed as follows: On presentation had KRISTIE and UTI. Has completed treatment for UTI. No symptoms at this time. White cell count normal at 4.0, hemoglobin improving at 10.5. Kidney function electrolytes normal BUN 11, creatinine 0.9. Magnesium 2.0, potassium 4.0, sodium 136 Continue magnesium supplementation with 400 mg p.o. twice daily Anxiety: Condition stable, tolerating meds well. Continue BuSpar 10 mg twice daily, Ativan 0.25 mg twice daily, and Zoloft 100 mg daily Hypertension and sinus tachycardia: Continue metoprolol. Urinary retention, resolved: Continue tamsulosin 0.4 mg twice daily. Hx of NIDDM: A1c 4.9 during last admission.continue metformin 500 mg orally once daily. Morning glucose 130 PLOV for dvt ppx protonix Full code regular diet PT and OT working with patient. Case management assisting with decision making capacity/potential guardianship for referral to rehab.
[2024-03-13 16:00] VITALS: BP 98/43; PULSE 87; RESP 18; TEMP 36.7; O2SAT 100
[2024-03-13] MEDS: PRENATAL MULTIVITAMIN W/IRON 1 EACH PO (17:28)
[2024-03-13 20:00] VITALS: BP 91/45; PULSE 75; RESP 16; TEMP 36.8; O2SAT 99
[2024-03-13] MEDS: NYSTATIN TOPICAL POWDER 30GM TP (20:30)
[2024-03-14 04:00] VITALS: BP 108/59; PULSE 73; RESP 16; TEMP 36.7; O2SAT 99; BMI 26.6
[2024-03-14] MEDS: METFORMIN 500MG TABLET 500 MG PO (06:00)
[2024-03-14 07:58] VITALS: BP 114/68; PULSE 71; RESP 20; TEMP 37.1; O2SAT 91
[2024-03-14] MEDS: LORazepam 0.5MG TABLET 0.25 MG PO ×2 (08:21→21:05)
[2024-03-14] MEDS: FAMOTIDINE 20MG TABLET 20 MG PO ×2 (08:22→21:05)
[2024-03-14] MEDS: METOPROLOL TARTRATE 25MG TABLET 25 MG PO ×2 (08:22→21:05)
[2024-03-14] MEDS: ASPIRIN 81MG CHEWABLE TABLET 81 MG PO (08:22)
[2024-03-14] MEDS: FUROSEMIDE 40 MG TABLET PO (08:22)
[2024-03-14] MEDS: MAGNESIUM OXIDE 400MG TABLET 400 MG PO ×2 (08:22→21:05)
[2024-03-14] MEDS: BUSPIRONE HCL 10 MG TABLET PO ×2 (08:22→21:05)
[2024-03-14] MEDS: SERTRALINE 100MG TABLET 100 MG PO (08:22)
[2024-03-14] MEDS: ASCORBIC ACID 500MG TAB 500 MG PO ×2 (08:22→21:05)
[2024-03-14] MEDS: TAMSULOSIN 0.4MG CAPSULE 0.400000000000000022 MG PO ×2 (08:22→21:05)
[2024-03-14] MEDS: ENOXAPARIN 40MG/0.4ML SYRINGE 40 MG SQ (08:23)
--- NOTE | 2024-03-14 13:03 | EXP.ACUTE.PN ---
Subjective *Date: 03/14/24 *Time: 13:03 Interval history: No acute events Medical Exam Vital signs and Labs for Last 24 Hours: Vital Signs Temp Pulse Resp BP Pulse Ox O2 Del Method 03/14/24 11:00 Room Air 03/14/24 09:00 Room Air 03/14/24 08:20 Room Air 03/14/24 07:58 98.7 F 71 20 114/68 91 L Room Air 03/14/24 06:53 Room Air 03/14/24 05:00 Room Air 03/14/24 04:00 98.1 F 73 16 108/59 L 99 Room Air 03/14/24 03:00 Room Air 03/14/24 01:00 Room Air 03/13/24 23:00 Room Air 03/13/24 21:00 Room Air 03/13/24 20:00 98.2 F 75 16 91/45 L 99 Room Air 03/13/24 19:54 Room Air 03/13/24 18:49 Room Air 03/13/24 17:00 Room Air 03/13/24 16:00 98.1 F 87 18 98/43 L 100 Room Air 03/13/24 15:00 Room Air Intake and Output 03/13/24 03/14/24 03/14/24 23:59 07:59 15:59 Intake Total 1257 / 3307 150 / 510 360 / 510 Output Total 0 / 0 0 / 0 0 / 0 Balance 1257 / 3307 150 / 510 360 / 510 Intake: Intake, Oral Amount 1257 / 3307 150 / 510 360 / 510 Output: Output, Urine Amount 0 / 0 0 / 0 0 / 0 Other: Number of Voids 2 Number of Unmeasured Voids 1 1 1 Number of Bowel Movements 1 Weight 68.124 kg Patient Weight 03/14/24 23:59 Weight 68.124 kg I & O for Labs for Last 24 Hours: Intake & Output 03/11/24 03/12/24 03/13/24 03/14/24 23:59 23:59 23:59 23:59 Intake Total 1669 / 1969 3157 / 3307 510 / 510 Output Total 400 / 400 0 / 0 0 / 0 0 / 0 Balance 1270 / 1570 1943 3157 / 3307 510 / 510 Weight 66.905 kg 68.124 kg 68.124 kg 68.124 kg Constitutional: Present no acute distress, average body habitus and cooperative Head: Present atraumatic and normocephalic ENT: Present normal exam and normal oropharynx Respiratory: Present normal respiratory effort; Absent rhonchi, wheezes or crackles Cardiac: Present Reg Rate and Rhythm GI: Present soft and normal bowel sounds Extremities: Present normal inspection and full ROM; Absent edema Skin: Present intact; Absent erythema Neuro: Present Essential Tremor, Grossly Intact, alert, awake and moves all extremities Comment:: Oriented to self only Assessment and Plan *Assessment and plan (1) Weakness: Status: Acute Category: Medical Code(s): R53.1 - Weakness (2) UTI (urinary tract infection): Status: Resolved Category: Medical Code(s): N39.0 - Urinary tract infection, site not specified (3) KRISTIE (acute kidney injury): Status: Resolved Category: Medical Code(s): N17.9 - Acute kidney failure, unspecified (4) Urinary retention: Status: Resolved Category: Medical Code(s): R33.9 - Retention of urine, unspecified (5) Hypokalemia: Status: Resolved Category: Medical Code(s): E87.6 - Hypokalemia (6) Anemia: Status: Chronic Category: Medical Code(s): D64.9 - Anemia, unspecified (7) Diabetes mellitus, type 2: Status: Chronic Qualifiers: Diabetes mellitus long term care pharmacist insulin use: without long term care pharmacist use Diabetes mellitus complication status: with other specified complication Qualified Code(s): E11.69 - Type 2 diabetes mellitus with other specified complication Category: Medical Code(s): E11.9 - Type 2 diabetes mellitus without complications (8) Candidal dermatitis: Status: Resolved Category: Medical Code(s): B37.2 - Candidiasis of skin and nail (9) Hypertension: Status: Chronic Category: Medical Code(s): I10 - Essential (primary) hypertension (10) Anxiety: Status: Chronic Category: Medical Code(s): F41.9 - Anxiety disorder, unspecified (11) Respiratory alkalosis: Status: Resolved Category: Medical Code(s): E87.3 - Alkalosis (12) Hypomagnesemia: Status: Resolved Category: Medical Code(s): E83.42 - Hypomagnesemia Plan 73-year-old female with PMHx of insulin-dependent diabetes, [facility] [place]. Was brought by EMS to the ER for decreased p.o. intake and concern for urinary retention. Patient complaining some abdominal discomfort. Workup in the ER showing concern for UTI and KRISTIE. Medicine consulted for admission and further management. Discussed case with ER, request admission due to urinary retention, KRISTIE, UTI, and inability to return back to her [facility]. Medicine agreed to admit for further management. Admitted for observation. Case management consulted and assisting with evaluation of patient's guardianship status. Needs long-term care. Anticipate prolonged admission due to patient's clinical condition, inability to make decisions for herself, and need for long-term placement. Completed antibiotic course. Clinically stable. Problems addressed as follows: Clinically stable. Awaiting guardianship for discharge. Stable chronic conditions Anxiety: Continue BuSpar 10 mg twice daily, Ativan 0.25 mg twice daily, and Zoloft 100 mg daily Hypertension and sinus tachycardia: Continue metoprolol. Urinary retention, resolved: Continue tamsulosin 0.4 mg twice daily. Hx of NIDDM: A1c 4.9 during last admission.continue metformin 500 mg orally once daily. Morning glucose 130 PLOV for dvt ppx protonix Full code regular diet PT and OT working with patient. Case management assisting with decision making capacity/potential guardianship for referral to rehab.
[2024-03-14 16:00] VITALS: BP 130/68; PULSE 89; RESP 20; TEMP 36.6; O2SAT 98
[2024-03-14] MEDS: PRENATAL MULTIVITAMIN W/IRON 1 EACH PO (16:42)
--- NOTE | 2024-03-14 17:26 | PC.NURSE ---
Pt has done well this shift. Still awaiting guardianship. No N/V this shift. ambulating with stand by assist.
--- NOTE | 2024-03-14 18:31 | PC.NURSE ---
When pt was walked to the bathroom with the tech, the tech stated that she thinks that pt may have trown up in the sink. This RN checked on pt and there was vomit in the sink. This RN bleached the sink. Pt stated that she felt sick earlier but does not feel sick now.
[2024-03-14 19:57] VITALS: BP 90/48; PULSE 91; RESP 16; TEMP 36.6; O2SAT 99
[2024-03-14] MEDS: NYSTATIN TOPICAL POWDER 30GM TP (21:08)
[2024-03-15 04:00] VITALS: BP 99/54; PULSE 78; RESP 16; TEMP 36.8; O2SAT 97; BMI 26.6
--- NOTE | 2024-03-15 04:14 | PC.NURSE ---
Pt has rested quietly through the night. Continues to wait for arrangements for guardianship at which time discharge disposition will be determined .
[2024-03-15] MEDS: METFORMIN 500MG TABLET 500 MG PO (06:37)
--- NOTE | 2024-03-15 07:16 | P.PN_ITS ---
Subjective *Date: 03/15/24 *Time: 11:30 Interval history: Patient not feeling as good this morning. Did not feel like eating breakfast. Stable on room air however. Afebrile. No ralph nausea or vomiting. Interactive with staff. Ambulating with therapy. Medical Exam Vital signs and Labs for Last 24 Hours: Vital Signs Temp Pulse Resp BP Pulse Ox O2 Del Method 03/15/24 04:00 98.2 F 78 16 99/54 L 97 Room Air 03/15/24 03:00 Room Air 03/15/24 01:00 Room Air 03/14/24 21:00 Room Air 03/14/24 20:00 Room Air 03/14/24 19:57 97.8 F 91 H 16 90/48 L 99 Room Air 03/14/24 18:52 Room Air 03/14/24 17:00 Room Air 03/14/24 16:00 97.9 F 89 20 130/68 98 Room Air 03/14/24 15:00 Room Air 03/14/24 13:00 Room Air 03/14/24 11:00 Room Air 03/14/24 09:00 Room Air 03/14/24 08:20 Room Air 03/14/24 07:58 98.7 F 71 20 114/68 91 L Room Air Intake and Output 03/14/24 03/14/24 03/15/24 15:59 23:59 07:59 Intake Total 960 / 1330 220 / 1330 Output Total 0 / 0 0 / 0 0 / 0 Balance 960 / 1330 220 / 1330 0 / 0 Intake: Intake, Oral Amount 960 / 1330 220 / 1330 Output: Output, Urine Amount 0 / 0 0 / 0 0 / 0 Other: Number of Voids 1 Number of Unmeasured Voids 1 1 1 Number of Bowel Movements 1 1 Weight 68.124 kg Patient Weight 03/15/24 23:59 Weight 68.124 kg I & O for Labs for Last 24 Hours: Intake & Output 03/12/24 03/13/24 03/14/24 03/15/24 23:59 23:59 23:59 23:59 Intake Total 1943 3157 / 3307 1330 / 1330 Output Total 0 / 0 0 / 0 0 / 0 0 / 0 Balance 1943 3157 / 3307 1330 / 1330 0 / 0 Weight 68.124 kg 68.124 kg 68.124 kg 68.124 kg Constitutional: Present no acute distress, average body habitus and cooperative Head: Present atraumatic and normocephalic ENT: Present normal exam and normal oropharynx Respiratory: Present normal respiratory effort; Absent rhonchi, wheezes or crackles Cardiac: Present Reg Rate and Rhythm GI: Present soft and normal bowel sounds Extremities: Present normal inspection and full ROM; Absent edema Skin: Present intact; Absent erythema Neuro: Present Essential Tremor, Grossly Intact, alert, awake and moves all extremities Comment:: Oriented to self only Additional Findings:: Limited understanding of situation. Think she is in the hospital in [place]. Poor recall. Assessment and Plan *Assessment and plan (1) Weakness: Status: Acute Category: Medical Code(s): R53.1 - Weakness (2) Intellectual disability: Status: Acute Category: Medical Code(s): F79 - Unspecified intellectual disabilities (3) UTI (urinary tract infection): Status: Resolved Category: Medical Code(s): N39.0 - Urinary tract infection, site not specified (4) KRISTIE (acute kidney injury): Status: Resolved Category: Medical Code(s): N17.9 - Acute kidney failure, unspecified (5) Urinary retention: Status: Resolved Category: Medical Code(s): R33.9 - Retention of urine, unspecified (6) Hypokalemia: Status: Resolved Category: Medical Code(s): E87.6 - Hypokalemia (7) Anemia: Status: Chronic Category: Medical Code(s): D64.9 - Anemia, unspecified (8) Diabetes mellitus, type 2: Status: Chronic Qualifiers: Diabetes mellitus complication status: with other specified complication Diabetes mellitus group home insulin use: without group home use Qualified Code(s): E11.69 - Type 2 diabetes mellitus with other specified complication Category: Medical Code(s): E11.9 - Type 2 diabetes mellitus without complications (9) Candidal dermatitis: Status: Resolved Category: Medical Code(s): B37.2 - Candidiasis of skin and nail (10) Hypertension: Status: Chronic Category: Medical Code(s): I10 - Essential (primary) hypertension (11) Anxiety: Status: Chronic Category: Medical Code(s): F41.9 - Anxiety disorder, unspecified (12) Respiratory alkalosis: Status: Resolved Category: Medical Code(s): E87.3 - Alkalosis (13) Hypomagnesemia: Status: Resolved Category: Medical Code(s): E83.42 - Hypomagnesemia Plan 73-year-old female with PMHx of diabetes, intellectual disability, anxiety, progressive debility. She is a resident at [facility]. She was brought by EMS to the ER for decreased p.o. intake and concern for urinary retention. Found to have UTI and urinary retention. Necessitated Chowdary catheter and evaluation by urology. Patient was previously admitted for a month at which point guardianship was initiated due to patient's intellectual di sability, need for long-term care, and inability to make informed decisions. She has clinically shown improvement and is medically stable for discharge at this time pending guardianship decision. [facility] unfortunately is [facility] Her kidney injury has resolved, her UTI has resolved, and is doing better with her independent voiding with regular reminding by staff to go to the bathroom and using medications to help her bladder relax. Patient is oriented to self and time but is disoriented to situation, place. Has very poor recall and short-term memory. It is my opinion she does not have the capacity to make informed decisions in regards to her health including but not limited to placement or higher level interventions such as surgeries and procedures. Mini-Mental exam performed on 03/15 with a score of 11 out of 30. Patient was oriented to herself, the season, the year. Disoriented to location, thinks she is in [facility]. When asked to repeat 3 objects, she could only repeat 2 of the 3 with immediate recall. Short-term recall she could not repeat any of the objects. Patient could not perform serial sevens with counting. Unable to write a sentence or copy a picture. She is able to follow simple commands. Is conversant and pleasant. Is my opinion she needs placement due to her progressive debility/weakness, ongoing medical needs, and inability to care for herself. Clinically stable. Awaiting guardianship for discharge. Stable chronic conditions Anxiety: Continue BuSpar 10 mg twice daily, Ativan 0.25 mg twice daily, and Zoloft 100 mg daily Hypertension and sinus tachycardia: Continue metoprolol. Urinary retention, resolved: Continue tamsulosin 0.4 mg twice daily. Hx of NIDDM: A1c 4.9 during last admission.continue metformin 500 mg orally once daily. Morning glucose 130 PLOV for dvt ppx protonix Full code regular diet PT and OT working with patient. Case management assisting with decision making capacity/potential guardianship for referral to rehab.
[2024-03-15 08:00] VITALS: BP 117/60; PULSE 66; RESP 22; TEMP 36.6; O2SAT 95
[2024-03-15] MEDS: TAMSULOSIN 0.4MG CAPSULE 0.400000000000000022 MG PO ×2 (09:38→20:16)
[2024-03-15] MEDS: METOPROLOL TARTRATE 25MG TABLET 25 MG PO ×2 (09:38→20:16)
[2024-03-15] MEDS: ASCORBIC ACID 500MG TAB 500 MG PO ×2 (09:38→20:16)
[2024-03-15] MEDS: SERTRALINE 100MG TABLET 100 MG PO (09:38)
[2024-03-15] MEDS: BUSPIRONE HCL 10 MG TABLET PO ×2 (09:38→20:16)
[2024-03-15] MEDS: ENOXAPARIN 40MG/0.4ML SYRINGE 40 MG SQ (09:38)
[2024-03-15] MEDS: MAGNESIUM OXIDE 400MG TABLET 400 MG PO ×2 (09:38→20:16)
[2024-03-15] MEDS: FAMOTIDINE 20MG TABLET 20 MG PO ×2 (09:38→20:16)
[2024-03-15] MEDS: FUROSEMIDE 40 MG TABLET PO (09:38)
[2024-03-15] MEDS: ASPIRIN 81MG CHEWABLE TABLET 81 MG PO (09:38)
[2024-03-15] MEDS: NYSTATIN TOPICAL POWDER 30GM TP ×2 (09:39→20:17)
[2024-03-15] MEDS: LORazepam 0.5MG TABLET 0.25 MG PO ×2 (09:40→20:17)
[2024-03-15] MEDS: SENNOSIDES 8.6MG/DOCUSATE 50MG TABLET 1 TAB PO (09:45)
[2024-03-15 16:00] VITALS: BP 106/50; PULSE 74; RESP 20; TEMP 36.6; O2SAT 97
[2024-03-15] MEDS: PRENATAL MULTIVITAMIN W/IRON 1 EACH PO (18:21)
--- NOTE | 2024-03-15 18:35 | PC.NURSE ---
No acute changes. Pt has ambulated in hallway today. Been up to the chair. Ambulated to BR with standby assist. Tolerated well. Medications administered per mar. Call light within reach. safety measures in place.
[2024-03-15 20:00] VITALS: BP 97/51; PULSE 78; RESP 16; TEMP 36.9; O2SAT 97
[2024-03-16 04:00] VITALS: BP 103/53; PULSE 85; RESP 16; TEMP 36.8; O2SAT 96; BMI 26.1
[2024-03-16 06:04] LABS: Basophils % 0.6 % (0.1-2.0); Eosinophils # 0.2 K/mm3 (0.0-0.4); Eosinophils % 4.6 % (0.1-12.0); Hematocrit 28.7 % (37.0-47.0); Hemoglobin 9.3 g/dL (12.2-16.2); Lymphocytes # 1.9 K/mm3 (0.7-4.5); Lymphocytes % 47.3 % (10-50); Mean Corpuscular HGB Conc 32.5 g/dL (31.8-35.4); Mean Corpuscular Hemoglobin 32.2 pg (27.0-31.2); Mean Corpuscular Volume 99.3 fl (81-99); Monocytes # 0.2 K/mm3 (0.1-1.0); Monocytes % 5.9 % (1.7-9.3); Neutrophils # 1.7 K/mm3 (1.8-7.8); Neutrophils % 41.6 % (37.0-80.0); Platelet Count 203 K/mm3 (142-424); Red Blood Count 2.89 M/mm3 (4.20-5.40); Red Cell Distribution Width 15.5 % (11.5-17.5); White Blood Count 4.1 K/mm3 (4.8-10.8)
[2024-03-16 06:11] LABS: Chloride 107 mmol/L (98-107); Potassium 4.2 mmoL/L (3.5-5.1); Sodium 135 mmol/L (136-145)
[2024-03-16 06:14] LABS: Anion Gap 8.2 mEq/L (5-15); Blood Urea Nitrogen 12 mg/dl (7-17); Calcium 8.7 mg/dl (8.4-10.2); Carbon Dioxide 24 mmol/L (22.0-30.0); Creatinine Clearance Estimated 52 mL/min (50-200); Estimated Glomerular Filt Rate 70 ml/min (>60); GFR (African American) 85 ML/MIN (>60); Glucose 130 mg/dl (74-100); Magnesium 1.8 mg/dl (1.6-2.3)
[2024-03-16] MEDS: METFORMIN 500MG TABLET 500 MG PO (06:36)
--- NOTE | 2024-03-16 06:41 | PC.NURSE ---
Noacute changes. Pt has had 3 BMs this shift. Ambulating to BR w/ standby assist. No complaints voiced to staff. Call light within reach.
[2024-03-16 08:00] VITALS: BP 118/60; PULSE 77; RESP 16; TEMP 36.7; O2SAT 100
[2024-03-16] MEDS: ASPIRIN 81MG CHEWABLE TABLET 81 MG PO (08:06)
[2024-03-16] MEDS: TAMSULOSIN 0.4MG CAPSULE 0.400000000000000022 MG PO ×2 (08:06→21:14)
[2024-03-16] MEDS: ASCORBIC ACID 500MG TAB 500 MG PO ×2 (08:06→21:14)
[2024-03-16] MEDS: LORazepam 0.5MG TABLET 0.25 MG PO ×2 (08:06→21:14)
[2024-03-16] MEDS: FUROSEMIDE 40 MG TABLET PO (08:06)
[2024-03-16] MEDS: BUSPIRONE HCL 10 MG TABLET PO ×2 (08:06→21:14)
[2024-03-16] MEDS: SENNOSIDES 8.6MG/DOCUSATE 50MG TABLET 1 TAB PO (08:06)
[2024-03-16] MEDS: ENOXAPARIN 40MG/0.4ML SYRINGE 40 MG SQ (08:06)
[2024-03-16] MEDS: SERTRALINE 100MG TABLET 100 MG PO (08:06)
[2024-03-16] MEDS: FAMOTIDINE 20MG TABLET 20 MG PO ×2 (08:07→21:14)
[2024-03-16] MEDS: METOPROLOL TARTRATE 25MG TABLET 25 MG PO ×2 (08:07→21:14)
[2024-03-16] MEDS: NYSTATIN TOPICAL POWDER 30GM TP ×2 (08:07→21:14)
[2024-03-16] MEDS: MAGNESIUM OXIDE 400MG TABLET 400 MG PO ×2 (09:09→21:14)
[2024-03-16 16:00] VITALS: BP 92/57; PULSE 73; RESP 17; TEMP 36.6; O2SAT 90
--- NOTE | 2024-03-16 16:12 | PC.NURSE ---
pt pleasant and doing well. listened to music t/o the day and took a nap. multiple staff members have stopped to visit. pt has been notorious for removing her chair alarm, educated her on the need to use the cb and not get her by herself, so far today patient has done well and let nursing know. cb yunghtin reach and currently up in her chair at bedside.
[2024-03-16] MEDS: PRENATAL MULTIVITAMIN W/IRON 1 EACH PO (16:40)
--- NOTE | 2024-03-16 17:36 | EXP.PN ---
Subjective *Date: 03/16/24 *Time: 17:36 Interval history: seen at bedside, sitting in couch, watching TV, appears comfortable, in good spirits Exam Data for Last 24 hours Vital signs and Labs for Last 24 Hours: Temp Pulse Resp BP Pulse Ox O2 Del Method 98 F 73 17 92/57 L 90 L Room Air 03/16/24 16:00 03/16/24 16:00 03/16/24 16:00 03/16/24 16:00 03/16/24 16:00 03/16/24 17:00 Laboratory Results - last 24 hr 03/16/24 05:24: WBC 4.1 L, RBC 2.89 L, Hgb 9.3 L, Hct 28.7 L, MCV 99.3 H, MCH 32.2 H, MCHC 32.5, RDW 15.5, Plt Count 203, MPV 8.0, Neut % (Auto) 41.6, Lymph % (Auto) 47.3, Osborne % (Auto) 5.9, Eos % (Auto) 4.6, Baso % (Auto) 0.6, Neut # (Auto) 1.7 L, Lymph # (Auto) 1.9, Osborne # (Auto) 0.2, Eos # (Auto) 0.2, Baso # (Auto) 0.0, Sodium 135 L, Potassium 4.2, Chloride 107, Carbon Dioxide 24, Anion Gap 8.2, BUN 12, Creatinine 0.80, Estimated Creat Clear 52, Estimated GFR 70, Est GFR ( Amer) 85, Glucose 130 H, Calcium 8.7, Magnesium 1.8 I & O for Last 24 hours: Intake & Output 03/13/24 03/14/24 03/15/24 03/16/24 23:59 23:59 23:59 23:59 Intake Total 3157 / 3307 1330 / 1330 900 / 900 960 / 960 Output Total 0 / 0 0 / 0 0 / 0 0 / 0 Balance 3157 / 3307 1330 / 1330 900 / 900 960 / 960 Weight 68.124 kg 68.124 kg 68.124 kg 66.905 kg Constitutional Constitutional: no acute distress *Routine HEENT Exam Head: Present normocephalic Eye: Present EOMI and PERRL ENT: Present mucous membranes moist *Routine Neck Exam Neck: Present supple; Absent lymphadenopathy *Routine Respiratory Exam Respiratory: Present CTA bilaterally *Routine Cardiovascular Exam Cardiovascular: Present RRR *Routine Abdominal Exam Abdominal: Present soft and normoactive bowel sounds; Absent tenderness *Routine Extremities Exam Extremities: Absent cyanosis, clubbing or edema *Routine Skin Exam Skin: Present warm; Absent rash *Routine Neurological Exam Neurological: Present alert and oriented X3 Assessment and Plan *Assessment and plan (1) Weakness: Status: Acute Category: Medical Code(s): R53.1 - Weakness (2) Intellectual disability: Status: Acute Category: Medical Code(s): F79 - Unspecified intellectual disabilities (3) UTI (urinary tract infection): Status: Resolved Category: Medical Code(s): N39.0 - Urinary tract infection, site not specified (4) KRISTIE (acute kidney injury): Status: Resolved Category: Medical Code(s): N17.9 - Acute kidney failure, unspecified (5) Urinary retention: Status: Resolved Category: Medical Code(s): R33.9 - Retention of urine, unspecified (6) Hypokalemia: Status: Resolved Category: Medical Code(s): E87.6 - Hypokalemia (7) Anemia: Status: Chronic Category: Medical Code(s): D64.9 - Anemia, unspecified (8) Diabetes mellitus, type 2: Status: Chronic Qualifiers: Diabetes mellitus care home insulin use: without care home use Diabetes mellitus complication status: with other specified complication Qualified Code(s): E11.69 - Type 2 diabetes mellitus with other specified complication Category: Medical Code(s): E11.9 - Type 2 diabetes mellitus without complications (9) Candidal dermatitis: Status: Resolved Category: Medical Code(s): B37.2 - Candidiasis of skin and nail (10) Hypertension: Status: Chronic Category: Medical Code(s): I10 - Essential (primary) hypertension (11) Anxiety: Status: Chronic Category: Medical Code(s): F41.9 - Anxiety disorder, unspecified (12) Respiratory alkalosis: Status: Resolved Category: Medical Code(s): E87.3 - Alkalosis (13) Hypomagnesemia: Status: Resolved Category: Medical Code(s): E83.42 - Hypomagnesemia Plan 73-year-old female with PMHx of diabetes, intellectual disability, anxiety, progressive debility. She is a resident at [facility]. She was brought by EMS to the ER for decreased p.o. intake and concern for urinary retention. Found to have UTI and urinary retention. Necessitated Chowdary catheter and evaluation by urology. Patient was previously admitted for a month at which point guardianship was initiated due to patient's intellectual disability, need for long-term care, and inability to make informed decisions. She has clinically shown improvement and is medically stable for discharge at this time pending guardianship decision. Clinically stable. Awaiting guardianship for discharge. Stable chronic conditions Anxiety: Continue BuSpar 10 mg twice daily, Ativan 0.25 mg twice daily, and Zoloft 100 mg daily Hypertension and sinus tachycardia: Continue metoprolol. Urinary retention, resolved: Continue tamsulosin 0.4 mg twice daily. Hx of NIDDM: A1c 4.9 during last admission.continue metformin 500 mg orally once daily. Morning glucose 130 PLOV for dvt ppx protonix Full code regular diet PT and OT working with patient. Case management assisting with decision making capacity/potential guardianship for referral to rehab.
[2024-03-16 20:00] VITALS: BP 99/50; PULSE 83; RESP 20; TEMP 36.8; O2SAT 99
[2024-03-17 04:00] VITALS: BP 109/55; PULSE 81; RESP 16; TEMP 36.8; O2SAT 93; BMI 27.1
[2024-03-17] MEDS: METFORMIN 500MG TABLET 500 MG PO (06:47)
[2024-03-17 08:00] VITALS: BP 110/60; PULSE 67; RESP 20; TEMP 36.6; O2SAT 93
[2024-03-17] MEDS: ASCORBIC ACID 500MG TAB 500 MG PO ×2 (08:28→20:49)
[2024-03-17] MEDS: ASPIRIN 81MG CHEWABLE TABLET 81 MG PO (08:28)
[2024-03-17] MEDS: BUSPIRONE HCL 10 MG TABLET PO ×2 (08:28→20:49)
[2024-03-17] MEDS: FUROSEMIDE 40 MG TABLET PO (08:29)
[2024-03-17] MEDS: SENNOSIDES 8.6MG/DOCUSATE 50MG TABLET 1 TAB PO (08:29)
[2024-03-17] MEDS: MAGNESIUM OXIDE 400MG TABLET 400 MG PO ×2 (08:29→20:49)
[2024-03-17] MEDS: ERGOCALCIFEROL 50,000 UNITS (1.25MG) CAPSULE 50000 UNIT PO (08:29)
[2024-03-17] MEDS: METOPROLOL TARTRATE 25MG TABLET 25 MG PO ×2 (08:29→20:49)
[2024-03-17] MEDS: FAMOTIDINE 20MG TABLET 20 MG PO ×2 (08:29→20:49)
[2024-03-17] MEDS: ENOXAPARIN 40MG/0.4ML SYRINGE 40 MG SQ (08:29)
[2024-03-17] MEDS: NYSTATIN TOPICAL POWDER 30GM TP ×2 (08:29→20:50)
[2024-03-17] MEDS: SERTRALINE 100MG TABLET 100 MG PO (08:30)
[2024-03-17] MEDS: TAMSULOSIN 0.4MG CAPSULE 0.400000000000000022 MG PO ×2 (08:30→20:49)
[2024-03-17] MEDS: LORazepam 0.5MG TABLET 0.25 MG PO ×2 (08:31→20:51)
--- NOTE | 2024-03-17 13:34 | P.PN_ITS ---
Subjective *Date: 03/17/24 *Time: 13:34 Interval history: seen at bedside, sitting in couch, watching TV, appears comfortable, in good spirits Exam Data for Last 24 hours Vital signs and Labs for Last 24 Hours: Temp Pulse Resp BP Pulse Ox O2 Del Method 97.9 F 67 20 110/60 93 L Room Air 03/17/24 08:00 03/17/24 08:00 03/17/24 08:00 03/17/24 08:00 03/17/24 08:00 03/17/24 10:50 I & O for Last 24 hours: Intake & Output 03/14/24 03/15/24 03/16/24 03/17/24 23:59 23:59 23:59 23:59 Intake Total 1330 / 1330 900 / 900 1230 / 1230 234 / 234 Output Total 0 / 0 0 / 0 0 / 0 0 / 0 Balance 1330 / 1330 900 / 900 1230 / 1230 234 / 234 Weight 68.124 kg 68.124 kg 66.905 kg 69.49 kg Constitutional Constitutional: no acute distress *Routine HEENT Exam Head: Present normocephalic Eye: Present EOMI and PERRL ENT: Present mucous membranes moist *Routine Neck Exam Neck: Present supple; Absent lymphadenopathy *Routine Respiratory Exam Respiratory: Present CTA bilaterally *Routine Cardiovascular Exam Cardiovascular: Present RRR *Routine Abdominal Exam Abdominal: Present soft and normoactive bowel sounds; Absent tenderness *Routine Extremities Exam Extremities: Absent cyanosis, clubbing or edema *Routine Skin Exam Skin: Present warm; Absent rash *Routine Neurological Exam Neurological: Present alert and oriented X3 Assessment and Plan *Assessment and plan (1) Weakness: Status: Acute Category: Medical Code(s): R53.1 - Weakness (2) Intellectual disability: Status: Acute Category: Medical Code(s): F79 - Unspecified intellectual disabilities (3) UTI (urinary tract infection): Status: Resolved Category: Medical Code(s): N39.0 - Urinary tract infection, site not specified (4) KRISTIE (acute kidney injury): Status: Resolved Category: Medical Code(s): N17.9 - Acute kidney failure, unspecified (5) Urinary retention: Status: Resolved Category: Medical Code(s): R33.9 - Retention of urine, unspecified (6) Hypokalemia: Status: Resolved Category: Medical Code(s): E87.6 - Hypokalemia (7) Anemia: Status: Chronic Category: Medical Code(s): D64.9 - Anemia, unspecified (8) Diabetes mellitus, type 2: Status: Chronic Qualifiers: Diabetes mellitus terminal operations manager insulin use: without terminal operations manager use Diabetes mellitus complication status: with other specified complication Qualified Code(s): E11.69 - Type 2 diabetes mellitus with other specified complication Category: Medical Code(s): E11.9 - Type 2 diabetes mellitus without complications (9) Candidal dermatitis: Status: Resolved Category: Medical Code(s): B37.2 - Candidiasis of skin and nail (10) Hypertension: Status: Chronic Category: Medical Code(s): I10 - Essential (primary) hypertension (11) Anxiety: Status: Chronic Category: Medical Code(s): F41.9 - Anxiety disorder, unspecified (12) Respiratory alkalosis: Status: Resolved Category: Medical Code(s): E87.3 - Alkalosis (13) Hypomagnesemia: Status: Resolved Category: Medical Code(s): E83.42 - Hypomagnesemia Plan 73-year-old female with PMHx of diabetes, intellectual disability, anxiety, progressive debility. She is a resident at [facility]. She was brought by EMS to the ER for decreased p.o. intake and concern for urinary retention. Found to have UTI and urinary retention. Necessitated Chowdary catheter and evaluation by urology. Patient was previously admitted for a month at which point guardianship was initiated due to patient's intellectual disability, need for long-term care, and inability to make informed decisions. She has clinically shown improvement and is medically stable for discharge at this time pending guardianship decision. Clinically stable. Awaiting guardianship for discharge. Stable chronic conditions Anxiety: Continue BuSpar 10 mg twice daily, Ativan 0.25 mg twice daily, and Zoloft 100 mg daily Hypertension and sinus tachycardia: Continue metoprolol. Urinary retention, resolved: Continue tamsulosin 0.4 mg twice daily. Hx of NIDDM: A1c 4.9 during last admission.continue metformin 500 mg orally once daily. Morning glucose 130 PLOV for dvt ppx protonix Full code regular diet PT and OT working with patient. Case management assisting with decision making capacity/potential guardianship for referral to rehab.
[2024-03-17 16:00] VITALS: BP 99/50; PULSE 79; RESP 22; TEMP 37; O2SAT 98
[2024-03-17] MEDS: PRENATAL MULTIVITAMIN W/IRON 1 EACH PO (17:20)
--- NOTE | 2024-03-17 18:48 | PC.NURSE ---
ALERT TO SELF. AMBULATORY IN ROOM, STANDBY ASSIST. NO NEEDS OR C/O THIS SHIFT. VSS.
[2024-03-17 20:00] VITALS: BP 88/48; PULSE 82; RESP 18; TEMP 36.8; O2SAT 98
[2024-03-17 20:55] VITALS: BP 121/59; PULSE 76
--- NOTE | 2024-03-18 03:59 | PC.NURSE ---
Patient alert and oriented to name and only. No acute changes overnight. VSS. Call light within reach and bed safety alarm on.
[2024-03-18 04:00] VITALS: BP 114/62; PULSE 72; RESP 16; TEMP 36.8; O2SAT 95; BMI 26.8
[2024-03-18] MEDS: METFORMIN 500MG TABLET 500 MG PO (06:07)
[2024-03-18 07:53] VITALS: BP 115/53; PULSE 70; RESP 16; TEMP 36.6; O2SAT 99
[2024-03-18] MEDS: BUSPIRONE HCL 10 MG TABLET PO ×2 (08:25→21:09)
[2024-03-18] MEDS: METOPROLOL TARTRATE 25MG TABLET 25 MG PO ×2 (08:25→21:09)
[2024-03-18] MEDS: FUROSEMIDE 40 MG TABLET PO (08:25)
[2024-03-18] MEDS: TAMSULOSIN 0.4MG CAPSULE 0.400000000000000022 MG PO ×2 (08:25→21:10)
[2024-03-18] MEDS: MAGNESIUM OXIDE 400MG TABLET 400 MG PO ×2 (08:25→21:09)
[2024-03-18] MEDS: ASCORBIC ACID 500MG TAB 500 MG PO ×2 (08:25→21:09)
[2024-03-18] MEDS: NYSTATIN TOPICAL POWDER 30GM TP ×2 (08:25→21:10)
[2024-03-18] MEDS: SENNOSIDES 8.6MG/DOCUSATE 50MG TABLET 1 TAB PO (08:25)
[2024-03-18] MEDS: ASPIRIN 81MG CHEWABLE TABLET 81 MG PO (08:25)
[2024-03-18] MEDS: ENOXAPARIN 40MG/0.4ML SYRINGE 40 MG SQ (08:25)
[2024-03-18] MEDS: FAMOTIDINE 20MG TABLET 20 MG PO ×2 (08:25→21:09)
[2024-03-18] MEDS: SERTRALINE 100MG TABLET 100 MG PO (08:25)
[2024-03-18] MEDS: LORazepam 0.5MG TABLET 0.25 MG PO ×2 (08:25→21:09)
[2024-03-18 16:00] VITALS: BP 105/56; PULSE 59; RESP 22; TEMP 36.9; O2SAT 94
--- NOTE | 2024-03-18 17:46 | EXP.PN ---
Subjective *Date: 03/18/24 *Time: 17:46 Interval history: seen at bedside, sitting in couch, watching TV, appears comfortable, in good spirits Exam Data for Last 24 hours Vital signs and Labs for Last 24 Hours: Temp Pulse Resp BP Pulse Ox O2 Del Method 97.9 F 70 16 115/53 L 99 Room Air 03/18/24 07:53 03/18/24 07:53 03/18/24 07:53 03/18/24 07:53 03/18/24 07:53 03/18/24 17:00 I & O for Last 24 hours: Intake & Output 03/15/24 03/16/24 03/17/24 03/18/24 23:59 23:59 23:59 23:59 Intake Total 900 / 900 1230 / 1230 954 / 954 600 / 600 Output Total 0 / 0 0 / 0 0 / 0 0 / 0 Balance 900 / 900 1230 / 1230 954 / 954 600 / 600 Weight 68.124 kg 66.905 kg 69.49 kg 68.629 kg Constitutional Constitutional: no acute distress *Routine HEENT Exam Head: Present normocephalic Eye: Present EOMI and PERRL ENT: Present mucous membranes moist *Routine Neck Exam Neck: Present supple; Absent lymphadenopathy *Routine Respiratory Exam Respiratory: Present CTA bilaterally *Routine Cardiovascular Exam Cardiovascular: Present RRR *Routine Abdominal Exam Abdominal: Present soft and normoactive bowel sounds; Absent tenderness *Routine Extremities Exam Extremities: Absent cyanosis, clubbing or edema *Routine Skin Exam Skin: Present warm; Absent rash *Routine Neurological Exam Neurological: Present alert and oriented X3 Assessment and Plan *Assessment and plan (1) Weakness: Status: Acute Category: Medical Code(s): R53.1 - Weakness (2) Intellectual disability: Status: Acute Category: Medical Code(s): F79 - Unspecified intellectual disabilities (3) UTI (urinary tract infection): Status: Resolved Category: Medical Code(s): N39.0 - Urinary tract infection, site not specified (4) KRISTIE (acute kidney injury): Status: Resolved Category: Medical Code(s): N17.9 - Acute kidney failure, unspecified (5) Urinary retention: Status: Resolved Category: Medical Code(s): R33.9 - Retention of urine, unspecified (6) Hypokalemia: Status: Resolved Category: Medical Code(s): E87.6 - Hypokalemia (7) Anemia: Status: Chronic Category: Medical Code(s): D64.9 - Anemia, unspecified (8) Diabetes mellitus, type 2: Status: Chronic Qualifiers: Diabetes mellitus [facility] insulin use: without [facility] use Diabetes mellitus complication status: with other specified complication Qualified Code(s): E11.69 - Type 2 diabetes mellitus with other specified complication Category: Medical Code(s): E11.9 - Type 2 diabetes mellitus without complications (9) Candidal dermatitis: Status: Resolved Category: Medical Code(s): B37.2 - Candidiasis of skin and nail (10) Hypertension: Status: Chronic Category: Medical Code(s): I10 - Essential (primary) hypertension (11) Anxiety: Status: Chronic Category: Medical Code(s): F41.9 - Anxiety disorder, unspecified (12) Respiratory alkalosis: Status: Resolved Category: Medical Code(s): E87.3 - Alkalosis (13) Hypomagnesemia: Status: Resolved Category: Medical Code(s): E83.42 - Hypomagnesemia Plan 73-year-old female with PMHx of diabetes, intellectual disability, anxiety, progressive debility. She is a resident at [facility]. She was brought by EMS to the ER for decreased p.o. intake and concern for urinary retention. Found to have UTI and urinary retention. Necessitated Chowdary catheter and evaluation by urology. Patient was previously admitted for a month at which point guardianship was initiated due to patient's intellectual disability, need for long-term care, and inability to make informed decisions. She has clinically shown improvement and is medically stable for discharge at this time pending guardianship decision. Clinically stable. Awaiting guardianship for discharge. Stable chronic conditions Anxiety: Continue BuSpar 10 mg twice daily, Ativan 0.25 mg twice daily, and Zoloft 100 mg daily Hypertension and sinus tachycardia: Continue metoprolol. Urinary retention, resolved: Continue tamsulosin 0.4 mg twice daily. Hx of NIDDM: A1c 4.9 during last admission.continue metformin 500 mg orally once daily. Morning glucose 130 PLOV for dvt ppx protonix Full code regular diet PT and OT working with patient. Case management assisting with decision making capacity/potential guardianship for referral to rehab.
[2024-03-18] MEDS: PRENATAL MULTIVITAMIN W/IRON 1 EACH PO (18:04)
[2024-03-18 19:58] VITALS: BP 104/58
[2024-03-18 20:00] VITALS: BP 104/58; PULSE 78; RESP 16; TEMP 37.3; O2SAT 96
[2024-03-19 04:00] VITALS: BP 105/58; PULSE 76; RESP 16; TEMP 37; O2SAT 98; BMI 26.9
--- NOTE | 2024-03-19 05:40 | PC.NURSE ---
Addendum entered by Jerilyn Ha RN 03/19/24 05:50: Continues to wait for guardianship. Original Note: Patient is alert to herself. Patient has rested comfortably throughout the night. She has gotten up a few times during the night to ambulate to the bathroom with assistance; she ambulates very well. She has voided multiple times, has not had a bowel movement this shift, but is passing gas. Patient tolerates room air fairly. Upon auscultation, patient's lung sounds were clear, and her bowel sounds were active in all four quadrants. Her heart rate has remained within the upper 70s during this shift. Patient has trace edema in her ankles. Patient does not have an IV. She has received her scheduled medications per NOV. Patient has not had any complaints during this shift. Patient received a couple Diet Pepsi radha during bedtime. No acute changes. Patient's bed alarm is on and functioning. She was reminded to use her call light for any needs; it is within reach.
[2024-03-19 06:33] LABS: Chloride 106 mmol/L (98-107)
[2024-03-19 06:34] LABS: Potassium 4.3 mmoL/L (3.5-5.1); Sodium 135 mmol/L (136-145)
[2024-03-19 06:37] LABS: Anion Gap 11.3 mEq/L (5-15); Blood Urea Nitrogen 12 mg/dl (7-17); Calcium 8.8 mg/dl (8.4-10.2); Carbon Dioxide 22 mmol/L (22.0-30.0); Creatinine Clearance Estimated 54 mL/min (50-200); Estimated Glomerular Filt Rate 70 ml/min (>60); GFR (African American) 85 ML/MIN (>60); Glucose 118 mg/dl (74-100); Magnesium 1.8 mg/dl (1.6-2.3)
--- NOTE | 2024-03-19 06:39 | PC.NURSE ---
Patient stated she was having a headache. Leonel LEIGH was notified [id number]. Receiving order for Tylenol.
[2024-03-19] MEDS: METFORMIN 500MG TABLET 500 MG PO (06:46)
[2024-03-19] MEDS: ACETAMINOPHEN 325MG TAB 650 MG PO (06:47)
[2024-03-19 07:57] VITALS: BP 104/56; PULSE 68; RESP 16; TEMP 36.4; O2SAT 99
[2024-03-19 08:04] LABS: Basophils % 0.6 % (0.1-2.0); Eosinophils # 0.2 K/mm3 (0.0-0.4); Eosinophils % 3.8 % (0.1-12.0); Hematocrit 27.4 % (37.0-47.0); Hemoglobin 9.3 g/dL (12.2-16.2); Lymphocytes # 2.5 K/mm3 (0.7-4.5); Lymphocytes % 50.3 % (10-50); Mean Corpuscular Hemoglobin 32.9 pg (27.0-31.2); Mean Corpuscular Volume 96.5 fl (81-99); Mean Platelet Volume 8.3 fl (7.4-10.4); Monocytes # 0.4 K/mm3 (0.1-1.0); Neutrophils # 1.9 K/mm3 (1.8-7.8); Neutrophils % 38.3 % (37.0-80.0); Platelet Count 195 K/mm3 (142-424); Red Blood Count 2.84 M/mm3 (4.20-5.40); Red Cell Distribution Width 14.7 % (11.5-17.5)
[2024-03-19] MEDS: ASCORBIC ACID 500MG TAB 500 MG PO ×2 (08:17→20:43)
[2024-03-19] MEDS: METOPROLOL TARTRATE 25MG TABLET 25 MG PO ×2 (08:17→20:44)
[2024-03-19] MEDS: TAMSULOSIN 0.4MG CAPSULE 0.400000000000000022 MG PO ×2 (08:17→20:45)
[2024-03-19] MEDS: FAMOTIDINE 20MG TABLET 20 MG PO ×2 (08:17→20:44)
[2024-03-19] MEDS: FUROSEMIDE 40 MG TABLET PO (08:17)
[2024-03-19] MEDS: SENNOSIDES 8.6MG/DOCUSATE 50MG TABLET 1 TAB PO (08:17)
[2024-03-19] MEDS: SERTRALINE 100MG TABLET 100 MG PO (08:17)
[2024-03-19] MEDS: ASPIRIN 81MG CHEWABLE TABLET 81 MG PO (08:18)
[2024-03-19] MEDS: LORazepam 0.5MG TABLET 0.25 MG PO ×2 (08:18→20:44)
[2024-03-19] MEDS: BUSPIRONE HCL 10 MG TABLET PO ×2 (08:18→20:43)
[2024-03-19] MEDS: ENOXAPARIN 40MG/0.4ML SYRINGE 40 MG SQ (08:18)
[2024-03-19] MEDS: MAGNESIUM OXIDE 400MG TABLET 400 MG PO ×2 (08:18→20:44)
[2024-03-19] MEDS: NYSTATIN TOPICAL POWDER 30GM TP ×2 (08:19→20:45)
[2024-03-19 08:52] LABS: MANUAL DIFFERENTIAL MANUAL DIFFERENTIAL (MANUAL DIFF)
[2024-03-19 13:51] LABS: Eosinophils % 2 % (0-3); Lymphocytes % 58 % (10-50); Monocytes % 3 % (2-9); Neutrophils % 37 % (42-76); Platelet Estimate Normal; RBC Morphology Normal; Total Cells Counted 100
[2024-03-19 16:00] VITALS: BP 111/58; PULSE 76; RESP 20; TEMP 37.1; O2SAT 99
[2024-03-19] MEDS: PRENATAL MULTIVITAMIN W/IRON 1 EACH PO (16:17)
--- NOTE | 2024-03-19 17:48 | EXP.PN ---
Subjective *Date: 03/19/24 *Time: 17:48 Interval history: seen at bedside, no acute events overnight, denied any complains Exam Data for Last 24 hours Vital signs and Labs for Last 24 Hours: Temp Pulse Resp BP Pulse Ox O2 Del Method O2 Flow Rate 98.8 F 76 20 111/58 L 99 Room Air 2 03/19/24 16:00 03/19/24 16:00 03/19/24 16:00 03/19/24 16:00 03/19/24 16:00 03/19/24 16:00 03/18/24 16:00 Laboratory Results - last 24 hr 03/19/24 05:26: WBC 5.0, RBC 2.84 L, Hgb 9.3 L, Hct 27.4 L, MCV 96.5, MCH 32.9 H, MCHC 34.0, RDW 14.7, Plt Count 195, MPV 8.3, Neut % (Auto) 38.3, Lymph % (Auto) 50.3 H, [place] % (Auto) 7.0, Eos % (Auto) 3.8, Baso % (Auto) 0.6, Neut # (Auto) 1.9, Lymph # (Auto) 2.5, [place] # (Auto) 0.4, Eos # (Auto) 0.2, Baso # (Auto) 0.0, Total Counted 100, Neutrophils % (Manual) 37 L, Lymphocytes % (Manual) 58 H, Monocytes % (Manual) 3, Eosinophils % (Manual) 2, Platelet Estimate Normal, RBC Morphology Normal, Sodium 135 L, Potassium 4.3, Chloride 106, Carbon Dioxide 22, Anion Gap 11.3, BUN 12, Creatinine 0.80, Estimated Creat Clear 54, Estimated GFR 70, Est GFR ( Amer) 85, Glucose 118 H, Calcium 8.8, Magnesium 1.8 I & O for Last 24 hours: Intake & Output 03/16/24 03/17/24 03/18/24 03/19/24 23:59 23:59 23:59 23:59 Intake Total 1230 / 1230 954 / 954 1000 / 1222 472 / 472 Output Total 0 / 0 0 / 0 0 / 0 0 / 0 Balance 1230 / 1230 954 / 954 1000 / 1222 472 / 472 Weight 66.905 kg 69.49 kg 68.629 kg 68.946 kg Constitutional Constitutional: no acute distress *Routine HEENT Exam Head: Present normocephalic Eye: Present EOMI and PERRL ENT: Present mucous membranes moist *Routine Neck Exam Neck: Present supple; Absent lymphadenopathy *Routine Respiratory Exam Respiratory: Present CTA bilaterally *Routine Cardiovascular Exam Cardiovascular: Present RRR *Routine Abdominal Exam Abdominal: Present soft and normoactive bowel sounds; Absent tenderness *Routine Extremities Exam Extremities: Absent cyanosis, clubbing or edema *Routine Skin Exam Skin: Present warm; Absent rash *Routine Neurological Exam Neurological: Present alert and oriented X3 Assessment and Plan *Assessment and plan (1) Weakness: Status: Acute Category: Medical Code(s): R53.1 - Weakness (2) Intellectual disability: Status: Acute Category: Medical Code(s): F79 - Unspecified intellectual disabilities (3) UTI (urinary tract infection): Status: Resolved Category: Medical Code(s): N39.0 - Urinary tract infection, site not specified (4) KRISTIE (acute kidney injury): Status: Resolved Category: Medical Code(s): N17.9 - Acute kidney failure, unspecified (5) Urinary retention: Status: Resolved Category: Medical Code(s): R33.9 - Retention of urine, unspecified (6) Hypokalemia: Status: Resolved Category: Medical Code(s): E87.6 - Hypokalemia (7) Anemia: Status: Chronic Category: Medical Code(s): D64.9 - Anemia, unspecified (8) Diabetes mellitus, type 2: Status: Chronic Qualifiers: Diabetes mellitus [facility] insulin use: without intermediate accountant use Diabetes mellitus complication status: with other specified complication Qualified Code(s): E11.69 - Type 2 diabetes mellitus with other specified complication Category: Medical Code(s): E11.9 - Type 2 diabetes mellitus without complications (9) Candidal dermatitis: Status: Resolved Category: Medical Code(s): B37.2 - Candidiasis of skin and nail (10) Hypertension: Status: Chronic Category: Medical Code(s): I10 - Essential (primary) hypertension (11) Anxiety: Status: Chronic Category: Medical Code(s): F41.9 - Anxiety disorder, unspecified (12) Respiratory alkalosis: Status: Resolved Category: Medical Code(s): E87.3 - Alkalosis (13) Hypomagnesemia: Status: Resolved Category: Medical Code(s): E83.42 - Hypomagnesemia Plan 73-year-old female with PMHx of diabetes, intellectual disability, anxiety, progressive debility. She is a resident at [facility]. She was brought by EMS to the ER for decreased p.o. intake and concern for urinary retention. Found to have UTI and urinary retention. Necessitated Chowdary catheter and evaluation by urology. Patient was previously admitted for a month at which point guardianship was initiated due to patient's intellectual disability, need for long-term care, and inability to make informed decisions. She has clinically shown improvement and is medically stable for discharge at this time pending guardianship decision. Clinically stable. Awaiting guardianship for discharge. Stable chronic conditions Anxiety: Continue BuSpar 10 mg twice daily, Ativan 0.25 mg twice daily, and Zoloft 100 mg daily Hypertension and sinus tachycardia: Continue metoprolol. Urinary retention, resolved: Continue tamsulosin 0.4 mg twice daily. Hx of NIDDM: A1c 4.9 during last admission.continue metformin 500 mg orally once daily. Morning glucose 130 PLOV for dvt ppx protonix Full code regular diet Case management assisting with decision making capacity/potential guardianship for referral to rehab. discussed with CM and RADHA
[2024-03-19 20:00] VITALS: BP 104/54; PULSE 82; RESP 16; TEMP 36.7; O2SAT 97
[2024-03-19 21:44] LABS: POC Glucose,Bedside 176 (70-110)
[2024-03-20 04:00] VITALS: BP 122/78; PULSE 77; RESP 16; TEMP 37.2; O2SAT 97; BMI 26.6
[2024-03-20] MEDS: METFORMIN 500MG TABLET 500 MG PO (06:33)
[2024-03-20 07:58] VITALS: BP 103/59; PULSE 73; RESP 18; TEMP 36.5; O2SAT 99
[2024-03-20] MEDS: ASPIRIN 81MG CHEWABLE TABLET 81 MG PO (08:14)
[2024-03-20] MEDS: BUSPIRONE HCL 10 MG TABLET PO ×2 (08:15→20:29)
[2024-03-20] MEDS: SENNOSIDES 8.6MG/DOCUSATE 50MG TABLET 1 TAB PO (08:15)
[2024-03-20] MEDS: MAGNESIUM OXIDE 400MG TABLET 400 MG PO ×2 (08:15→20:29)
[2024-03-20] MEDS: SERTRALINE 100MG TABLET 100 MG PO (08:15)
[2024-03-20] MEDS: FUROSEMIDE 40 MG TABLET PO (08:16)
[2024-03-20] MEDS: FAMOTIDINE 20MG TABLET 20 MG PO ×2 (08:16→20:29)
[2024-03-20] MEDS: ASCORBIC ACID 500MG TAB 500 MG PO ×2 (08:16→20:29)
[2024-03-20] MEDS: METOPROLOL TARTRATE 25MG TABLET 25 MG PO ×2 (08:16→20:30)
[2024-03-20] MEDS: LORazepam 0.5MG TABLET 0.25 MG PO ×2 (08:17→20:30)
[2024-03-20] MEDS: TAMSULOSIN 0.4MG CAPSULE 0.400000000000000022 MG PO ×2 (08:18→20:29)
[2024-03-20] MEDS: NYSTATIN TOPICAL POWDER 30GM TP ×2 (08:18→20:30)
[2024-03-20] MEDS: ENOXAPARIN 40MG/0.4ML SYRINGE 40 MG SQ (08:18)
[2024-03-20 16:00] VITALS: BP 100/58; PULSE 81; RESP 17; TEMP 36.7; O2SAT 98
[2024-03-20] MEDS: PRENATAL MULTIVITAMIN W/IRON 1 EACH PO (17:16)
[2024-03-20 19:46] VITALS: BP 118/66; PULSE 75; RESP 18; TEMP 36.6; O2SAT 99
[2024-03-21 04:00] VITALS: BP 100/54; PULSE 70; RESP 16; TEMP 36.7; O2SAT 98; BMI 26.8
[2024-03-21] MEDS: METFORMIN 500MG TABLET 500 MG PO (06:44)
[2024-03-21 08:00] VITALS: BP 108/58; PULSE 70; RESP 18; TEMP 36.4; O2SAT 95
[2024-03-21] MEDS: TAMSULOSIN 0.4MG CAPSULE 0.400000000000000022 MG PO ×2 (08:07→20:24)
[2024-03-21] MEDS: BUSPIRONE HCL 10 MG TABLET PO ×2 (08:07→20:25)
[2024-03-21] MEDS: ASPIRIN 81MG CHEWABLE TABLET 81 MG PO (08:07)
[2024-03-21] MEDS: SENNOSIDES 8.6MG/DOCUSATE 50MG TABLET 1 TAB PO (08:07)
[2024-03-21] MEDS: ASCORBIC ACID 500MG TAB 500 MG PO ×2 (08:07→20:25)
[2024-03-21] MEDS: FAMOTIDINE 20MG TABLET 20 MG PO ×2 (08:07→20:25)
[2024-03-21] MEDS: SERTRALINE 100MG TABLET 100 MG PO (08:07)
[2024-03-21] MEDS: METOPROLOL TARTRATE 25MG TABLET 25 MG PO ×2 (08:08→20:24)
[2024-03-21] MEDS: NYSTATIN TOPICAL POWDER 30GM TP ×2 (08:08→20:28)
[2024-03-21] MEDS: FUROSEMIDE 40 MG TABLET PO (08:08)
[2024-03-21] MEDS: MAGNESIUM OXIDE 400MG TABLET 400 MG PO ×2 (08:08→20:24)
[2024-03-21] MEDS: LORazepam 0.5MG TABLET 0.25 MG PO ×2 (08:08→20:24)
[2024-03-21] MEDS: ENOXAPARIN 40MG/0.4ML SYRINGE 40 MG SQ (08:08)
--- NOTE | 2024-03-21 15:10 | EXP.PN ---
Subjective *Date: 03/21/24 *Time: 15:10 Interval history: seen at bedside, denied CP, SOB, N/V, has no complains today, sitting in chair Exam Data for Last 24 hours Vital signs and Labs for Last 24 Hours: Temp Pulse Resp BP Pulse Ox O2 Del Method O2 Flow Rate 97.6 F 70 18 108/58 L 95 Room Air 2 03/21/24 08:00 03/21/24 08:00 03/21/24 08:00 03/21/24 08:00 03/21/24 08:00 03/21/24 12:19 03/18/24 16:00 I & O for Last 24 hours: Intake & Output 03/18/24 03/19/24 03/20/24 03/21/24 23:59 23:59 23:59 23:59 Intake Total 1000 / 1222 962 / 962 1740 / 1740 750 / 750 Output Total 0 / 0 0 / 0 0 / 0 0 / 0 Balance 1000 / 1222 962 / 962 1740 / 1740 750 / 750 Weight 68.629 kg 68.946 kg 68.039 kg 68.629 kg Constitutional Constitutional: no acute distress *Routine HEENT Exam Head: Present normocephalic Eye: Present EOMI and PERRL ENT: Present mucous membranes moist *Routine Neck Exam Neck: Present supple; Absent lymphadenopathy *Routine Respiratory Exam Respiratory: Present CTA bilaterally *Routine Cardiovascular Exam Cardiovascular: Present RRR *Routine Abdominal Exam Abdominal: Present soft and normoactive bowel sounds; Absent tenderness *Routine Extremities Exam Extremities: Absent cyanosis, clubbing or edema *Routine Skin Exam Skin: Present warm; Absent rash *Routine Neurological Exam Neurological: Present alert and oriented X3 Assessment and Plan *Assessment and plan (1) Weakness: Status: Acute Category: Medical Code(s): R53.1 - Weakness (2) Intellectual disability: Status: Acute Category: Medical Code(s): F79 - Unspecified intellectual disabilities (3) UTI (urinary tract infection): Status: Resolved Category: Medical Code(s): N39.0 - Urinary tract infection, site not specified (4) KRISTIE (acute kidney injury): Status: Resolved Category: Medical Code(s): N17.9 - Acute kidney failure, unspecified (5) Urinary retention: Status: Resolved Category: Medical Code(s): R33.9 - Retention of urine, unspecified (6) Hypokalemia: Status: Resolved Category: Medical Code(s): E87.6 - Hypokalemia (7) Anemia: Status: Chronic Category: Medical Code(s): D64.9 - Anemia, unspecified (8) Diabetes mellitus, type 2: Status: Chronic Qualifiers: Diabetes mellitus jail insulin use: without jail use Diabetes mellitus complication status: with other specified complication Qualified Code(s): E11.69 - Type 2 diabetes mellitus with other specified complication Category: Medical Code(s): E11.9 - Type 2 diabetes mellitus without complications (9) Candidal dermatitis: Status: Resolved Category: Medical Code(s): B37.2 - Candidiasis of skin and nail (10) Hypertension: Status: Chronic Category: Medical Code(s): I10 - Essential (primary) hypertension (11) Anxiety: Status: Chronic Category: Medical Code(s): F41.9 - Anxiety disorder, unspecified (12) Respiratory alkalosis: Status: Resolved Category: Medical Code(s): E87.3 - Alkalosis (13) Hypomagnesemia: Status: Resolved Category: Medical Code(s): E83.42 - Hypomagnesemia Plan 73-year-old female with PMHx of diabetes, intellectual disability, anxiety, progressive debility. She is a resident at [facility]. She was brought by EMS to the ER for decreased p.o. intake and concern for urinary retention. Found to have UTI and urinary retention. Necessitated Chowdary catheter and evaluation by urology. Patient was previously admitted for a month at which point guardianship was initiated due to patient's intellectual disability, need for long-term care, and inability to make informed decisions. She has clinically shown improvement and is medically stable for discharge at this time pending guardianship decision. Patient is clinically stable for discharge, awaiting placement pending guardianship Stable chronic conditions Anxiety: Continue BuSpar 10 mg twice daily, Ativan 0.25 mg twice daily, and Zoloft 100 mg daily Hypertension and sinus tachycardia: Continue metoprolol. Urinary retention, resolved: Continue tamsulosin 0.4 mg twice daily. Hx of NIDDM: A1c 4.9 during last admission.continue metformin 500 mg orally once daily. Morning glucose 130 protonix Full code regular diet Case management assisting with decision making capacity/potential guardianship for referral to rehab. Court date is tomorrow for guardianship discussed with ANGIE and RADHA
[2024-03-21 16:00] VITALS: BP 108/59; PULSE 81; RESP 20; TEMP 37; O2SAT 100
[2024-03-21] MEDS: PRENATAL MULTIVITAMIN W/IRON 1 EACH PO (16:24)
[2024-03-21 20:00] VITALS: BP 116/64; PULSE 79; RESP 16; TEMP 36.7; O2SAT 99
[2024-03-22 04:00] VITALS: BP 139/82; PULSE 87; RESP 16; TEMP 36.9; O2SAT 96; BMI 27.6
[2024-03-22] MEDS: METFORMIN 500MG TABLET 500 MG PO (06:40)
[2024-03-22 07:04] LABS: Basophils % 0.7 % (0.1-2.0); Eosinophils # 0.2 K/mm3 (0.0-0.4); Eosinophils % 3.7 % (0.1-12.0); Hematocrit 29.6 % (37.0-47.0); Hemoglobin 9.5 g/dL (12.2-16.2); Lymphocytes # 2.3 K/mm3 (0.7-4.5); Lymphocytes % 46.6 % (10-50); Mean Corpuscular HGB Conc 32.2 g/dL (31.8-35.4); Mean Corpuscular Hemoglobin 31.7 pg (27.0-31.2); Mean Corpuscular Volume 98.3 fl (81-99); Mean Platelet Volume 8.5 fl (7.4-10.4); Monocytes # 0.3 K/mm3 (0.1-1.0); Monocytes % 5.8 % (1.7-9.3); Neutrophils # 2.1 K/mm3 (1.8-7.8); Neutrophils % 43.2 % (37.0-80.0); Platelet Count 216 K/mm3 (142-424); Red Blood Count 3.01 M/mm3 (4.20-5.40); Red Cell Distribution Width 15.1 % (11.5-17.5); White Blood Count 4.9 K/mm3 (4.8-10.8)
[2024-03-22 07:13] LABS: Anion Gap 12.1 mEq/L (5-15); Blood Urea Nitrogen 12 mg/dl (7-17); Calcium 9.1 mg/dl (8.4-10.2); Carbon Dioxide 24 mmol/L (22.0-30.0); Chloride 105 mmol/L (98-107); Creatinine Clearance Estimated 55 mL/min (50-200); Estimated Glomerular Filt Rate 70 ml/min (>60); GFR (African American) 85 ML/MIN (>60); Glucose 124 mg/dl (74-100); Magnesium 1.9 mg/dl (1.6-2.3); Potassium 4.1 mmoL/L (3.5-5.1); Sodium 137 mmol/L (136-145)
--- NOTE | 2024-03-22 07:59 | EXP.ACUTE.PN ---
Subjective *Date: 03/22/24 *Time: 16:06 Interval history: No acute events overnight. Stable on room air. Slept well. Denies any nausea or vomiting. Medical Exam Vital signs and Labs for Last 24 Hours: Vital Signs Temp Pulse Pulse Resp BP Pulse Ox O2 Del Method 03/22/24 06:33 Room Air 03/22/24 05:00 Room Air 03/22/24 04:00 98.4 F 87 16 139/82 96 Room Air 03/22/24 03:00 Room Air 03/22/24 01:00 Room Air 03/21/24 23:00 Room Air 03/21/24 21:00 Room Air 03/21/24 20:00 Room Air 03/21/24 20:00 98.1 F 79 16 116/64 99 Room Air 03/21/24 18:23 Room Air 03/21/24 17:00 Room Air 03/21/24 16:00 98.6 F 81 20 108/59 L 100 Room Air 03/21/24 15:00 Room Air 03/21/24 12:19 Room Air 03/21/24 11:00 Room Air 03/21/24 09:00 Room Air 03/21/24 08:00 Room Air 03/21/24 08:00 97.6 F 70 18 108/58 L 95 Room Air Intake and Output 03/21/24 03/21/24 03/22/24 15:59 23:59 07:59 Intake Total 510 / 1470 480 / 1470 240 / 240 Output Total 0 / 0 0 / 0 0 / 0 Balance 510 / 1470 480 / 1470 240 / 240 Intake: Intake, Oral Amount 510 / 1470 480 / 1470 240 / 240 Output: Output, Urine Amount 0 / 0 0 / 0 0 / 0 Other: Number of Unmeasured Voids 1 1 1 Number of Bowel Movements 1 Weight 70.76 kg Patient Weight 03/22/24 23:59 Weight 70.76 kg Laboratory Results - last 24 hr 03/22/24 05:51: WBC 4.9, RBC 3.01 L, Hgb 9.5 L, Hct 29.6 L, MCV 98.3, MCH 31.7 H, MCHC 32.2, RDW 15.1, Plt Count 216, MPV 8.5, Neut % (Auto) 43.2, Lymph % (Auto) 46.6, [place] % (Auto) 5.8, Eos % (Auto) 3.7, Baso % (Auto) 0.7, Neut # (Auto) 2.1, Lymph # (Auto) 2.3, [place] # (Auto) 0.3, Eos # (Auto) 0.2, Baso # (Auto) 0.0, Sodium 137, Potassium 4.1, Chloride 105, Carbon Dioxide 24, Anion Gap 12.1, BUN 12, Creatinine 0.80, Estimated Creat Clear 55, Estimated GFR 70, Est GFR ( Amer) 85, Glucose 124 H, Calcium 9.1, Magnesium 1.9 I & O for Labs for Last 24 Hours: Intake & Output 03/19/24 03/20/24 03/21/24 03/22/24 23:59 23:59 23:59 23:59 Intake Total 962 / 962 1740 / 1740 1230 / 1470 240 / 240 Output Total 0 / 0 0 / 0 0 / 0 0 / 0 Balance 962 / 962 1740 / 1740 1230 / 1470 240 / 240 Weight 68.946 kg 68.039 kg 68.629 kg 70.76 kg Constitutional: Present no acute distress, average body habitus and cooperative Head: Present atraumatic and normocephalic ENT: Present normal exam and normal oropharynx Respiratory: Present normal respiratory effort; Absent rhonchi, wheezes or crackles Cardiac: Present Reg Rate and Rhythm GI: Present soft and normal bowel sounds Extremities: Present normal inspection and full ROM; Absent edema Skin: Present intact; Absent erythema Neuro: Present Essential Tremor, Grossly Intact, alert, awake and moves all extremities Comment:: Oriented to self only Assessment and Plan *Assessment and plan (1) Weakness: Status: Acute Category: Medical Code(s): R53.1 - Weakness (2) Intellectual disability: Status: Acute Category: Medical Code(s): F79 - Unspecified intellectual disabilities (3) Urinary retention: Status: Resolved Category: Medical Code(s): R33.9 - Retention of urine, unspecified (4) Hypokalemia: Status: Resolved Category: Medical Code(s): E87.6 - Hypokalemia (5) Anemia: Status: Chronic Category: Medical Code(s): D64.9 - Anemia, unspecified (6) Diabetes mellitus, type 2: Status: Chronic Qualifiers: Diabetes mellitus terminal block assembler insulin use: without terminal block assembler use Diabetes mellitus complication status: with other specified complication Qualified Code(s): E11.69 - Type 2 diabetes mellitus with other specified complication Category: Medical Code(s): E11.9 - Type 2 diabetes mellitus without complications (7) Hypertension: Status: Chronic Category: Medical Code(s): I10 - Essential (primary) hypertension (8) Anxiety: Status: Chronic Category: Medical Code(s): F41.9 - Anxiety disorder, unspecified (9) Respiratory alkalosis: Status: Resolved Category: Medical Code(s): E87.3 - Alkalosis (10) Hypomagnesemia: Status: Resolved Category: Medical Code(s): E83.42 - Hypomagnesemia Plan 73-year-old female with PMHx of diabetes, intellectual disability, anxiety, progressive debility. She is a resident at [facility]. She was brought by EMS to the ER for decreased p.o. intake and concern for urinary retention. Found to have UTI and urinary retention. Necessitated Chowdary catheter and evaluation by urology. Patient was previously admitted for a month at which point guardianship was initiated due to patient's intellectual disability, need for long-term care, and inability to make informed decisions. She has clinically shown improvement and is medically stable for discharge at this time pending guardianship decision. She unfortunately is too medically complex to return back to her personal-[facility]. Her kidney injury has resolved, her UTI has resolved, and is doing better with her independent voiding with regular reminding by staff to go to the bathroom and using medications to help her bladder relax. Patient is oriented to self and time but is disoriented to situation, place. Has very poor recall and short-term memory. Medically stable. Labs reviewed per below. Awaiting placement. Guardianship hearing today. Case management referring to SNF for further care. Problems addressed as follows: Clinically stable. Awaiting guardianship for discharge. Stable chronic conditions Anxiety: Continue BuSpar 10 mg twice daily, Ativan 0.25 mg twice daily, and Zoloft 100 mg daily Hypertension and sinus tachycardia: Continue metoprolol. Urinary retention, resolved: Continue tamsulosin 0.4 mg twice daily. Hx of NIDDM: A1c 4.9 during last admission.continue metformin 500 mg orally once daily. Morning glucose 120 Anemia persistent, hemoglobin 9.5. No signs of infection with white cell count 4.9. Kidney function electrolytes stable with sodium 137, potassium 4.1, magnesium 1.9. Kidney function stable with BUN 12, creatinine 0.8. PLOV for dvt ppx protonix Full code regular diet PT and OT working with patient. Case management assisting with decision making capacity/potential guardianship for referral to rehab.
[2024-03-22 08:00] VITALS: BP 110/55; PULSE 65; RESP 20; TEMP 36.5; O2SAT 100
[2024-03-22] MEDS: SENNOSIDES 8.6MG/DOCUSATE 50MG TABLET 1 TAB PO (08:55)
[2024-03-22] MEDS: TAMSULOSIN 0.4MG CAPSULE 0.400000000000000022 MG PO ×2 (08:55→20:41)
[2024-03-22] MEDS: ASCORBIC ACID 500MG TAB 500 MG PO ×2 (08:55→20:41)
[2024-03-22] MEDS: MAGNESIUM OXIDE 400MG TABLET 400 MG PO ×2 (08:55→20:41)
[2024-03-22] MEDS: METOPROLOL TARTRATE 25MG TABLET 25 MG PO ×2 (08:55→20:41)
[2024-03-22] MEDS: BUSPIRONE HCL 10 MG TABLET PO ×2 (08:55→20:41)
[2024-03-22] MEDS: FUROSEMIDE 40 MG TABLET PO (08:55)
[2024-03-22] MEDS: ASPIRIN 81MG CHEWABLE TABLET 81 MG PO (08:55)
[2024-03-22] MEDS: FAMOTIDINE 20MG TABLET 20 MG PO ×2 (08:55→20:41)
[2024-03-22] MEDS: NYSTATIN TOPICAL POWDER 30GM TP ×2 (08:56→20:41)
[2024-03-22] MEDS: SERTRALINE 100MG TABLET 100 MG PO (08:56)
[2024-03-22] MEDS: ENOXAPARIN 40MG/0.4ML SYRINGE 40 MG SQ (08:56)
[2024-03-22] MEDS: LORazepam 0.5MG TABLET 0.25 MG PO ×2 (08:57→20:41)
[2024-03-22 16:00] VITALS: BP 104/58; PULSE 72; RESP 18; TEMP 36.6; O2SAT 98
[2024-03-22] MEDS: PRENATAL MULTIVITAMIN W/IRON 1 EACH PO (16:15)
--- NOTE | 2024-03-22 18:19 | PC.NURSE ---
Pt alert to self. Pt ambulating around room and barnett with stand-by assist and up to bedside chair for meals. Bed/chair alarms in place. Pt has no complaints at this time.
[2024-03-22 19:57] VITALS: BP 106/58; PULSE 85; RESP 18; TEMP 36.5; O2SAT 99
[2024-03-22 20:50] VITALS: O2SAT 99
[2024-03-23 04:00] VITALS: BP 104/57; PULSE 75; RESP 18; TEMP 37.2; O2SAT 97; BMI 26.5
--- NOTE | 2024-03-23 04:20 | PC.NURSE ---
Patient alert and oriented to self only. Patient has rested well this shift. No acute changes overnight. Call light within reach and bed alarm activated.
[2024-03-23] MEDS: METFORMIN 500MG TABLET 500 MG PO (06:14)
[2024-03-23 07:39] VITALS: BP 103/54; PULSE 83; RESP 17; TEMP 37.2; O2SAT 96
[2024-03-23] MEDS: ACETAMINOPHEN 325MG TAB 650 MG PO (07:57)
[2024-03-23 08:00] VITALS: O2SAT 98
[2024-03-23] MEDS: SENNOSIDES 8.6MG/DOCUSATE 50MG TABLET 1 TAB PO (10:00)
[2024-03-23] MEDS: NYSTATIN TOPICAL POWDER 30GM TP ×2 (10:00→20:00)
[2024-03-23] MEDS: LORazepam 0.5MG TABLET 0.25 MG PO ×2 (10:00→20:00)
[2024-03-23] MEDS: ASPIRIN 81MG CHEWABLE TABLET 81 MG PO (10:00)
[2024-03-23] MEDS: BUSPIRONE HCL 10 MG TABLET PO ×2 (10:00→20:00)
[2024-03-23] MEDS: SERTRALINE 100MG TABLET 100 MG PO (10:00)
[2024-03-23] MEDS: TAMSULOSIN 0.4MG CAPSULE 0.400000000000000022 MG PO ×2 (10:00→20:00)
[2024-03-23] MEDS: FUROSEMIDE 40 MG TABLET PO (10:00)
[2024-03-23] MEDS: MAGNESIUM OXIDE 400MG TABLET 400 MG PO ×2 (10:00→20:00)
[2024-03-23] MEDS: ENOXAPARIN 40MG/0.4ML SYRINGE 40 MG SQ (10:00)
[2024-03-23] MEDS: FAMOTIDINE 20MG TABLET 20 MG PO ×2 (10:00→20:00)
[2024-03-23] MEDS: ASCORBIC ACID 500MG TAB 500 MG PO ×2 (10:00→20:00)
[2024-03-23] MEDS: METOPROLOL TARTRATE 25MG TABLET 25 MG PO ×2 (10:00→20:00)
--- NOTE | 2024-03-23 14:53 | P.PN_ITS ---
Subjective *Date: 03/23/24 *Time: 14:53 Interval history: Patient doing well on room air. Informed that she will be discharging tomorrow to detention. She is anxious about this. Has no acute complaints however. Tolerating p.o. intake. Pleasant on exam. Afebrile. Hemodynamically stable Medical Exam Vital signs and Labs for Last 24 Hours: Vital Signs Temp Pulse Pulse Resp BP Pulse Ox O2 Del Method 03/23/24 12:39 Room Air 03/23/24 11:00 Room Air 03/23/24 09:00 Room Air 03/23/24 08:00 98 Room Air 03/23/24 07:39 99 F 83 17 103/54 L 96 Room Air 03/23/24 06:47 Room Air 03/23/24 05:07 Room Air 03/23/24 04:00 98.9 F 75 18 104/57 L 97 Room Air 03/23/24 02:53 Room Air 03/23/24 00:55 Room Air 03/22/24 22:58 Room Air 03/22/24 20:50 Room Air 03/22/24 20:50 99 Room Air 03/22/24 19:57 97.7 F 85 18 106/58 L 99 Room Air 03/22/24 19:00 Room Air 03/22/24 17:00 Room Air 03/22/24 16:00 97.8 F 72 18 104/58 L 98 Room Air 03/22/24 14:54 Room Air Intake and Output 03/22/24 03/23/24 03/23/24 23:59 07:59 15:59 Intake Total 575 / 1615 720 / 720 Output Total 0 / 0 0 / 0 0 / 0 Balance 575 / 1615 0 / 720 720 / 720 Intake: Intake, Oral Amount 575 / 1615 720 / 720 Output: Output, Urine Amount 0 / 0 0 / 0 0 / 0 Other: Number of Voids 0 Number of Unmeasured Voids 1 1 1 Number of Bowel Movements 1 Weight 67.993 kg Patient Weight 03/23/24 23:59 Weight 67.993 kg I & O for Labs for Last 24 Hours: Intake & Output 03/20/24 03/21/24 03/22/24 03/23/24 23:59 23:59 23:59 23:59 Intake Total 1740 / 1740 1230 / 1470 1615 / 1615 720 / 720 Output Total 0 / 0 0 / 0 0 / 0 0 / 0 Balance 1740 / 1740 1230 / 1470 1615 / 1615 720 / 720 Weight 68.039 kg 68.629 kg 70.76 kg 67.993 kg Constitutional: Present no acute distress, average body habitus and cooperative Head: Present atraumatic and normocephalic ENT: Present normal exam and normal oropharynx Respiratory: Present normal respiratory effort; Absent rhonchi, wheezes or crackles Cardiac: Present Reg Rate and Rhythm GI: Present soft and normal bowel sounds (female): Present deferred Extremities: Present normal inspection and full ROM; Absent edema Skin: Present intact; Absent erythema Neuro: Present Essential Tremor, Grossly Intact, alert, awake and moves all extremities Comment:: Oriented to self only Assessment and Plan *Assessment and plan (1) Weakness: Status: Acute Category: Medical Code(s): R53.1 - Weakness (2) Intellectual disability: Status: Acute Category: Medical Code(s): F79 - Unspecified intellectual disabilities (3) Urinary retention: Status: Resolved Category: Medical Code(s): R33.9 - Retention of urine, unspecified (4) Hypokalemia: Status: Resolved Category: Medical Code(s): E87.6 - Hypokalemia (5) Anemia: Status: Chronic Category: Medical Code(s): D64.9 - Anemia, unspecified (6) Diabetes mellitus, type 2: Status: Chronic Qualifiers: Diabetes mellitus longterm insulin use: without ferry terminal agent use Diabetes mellitus complication status: with other specified complication Qualified Code(s): E11.69 - Type 2 diabetes mellitus with other specified complication Category: Medical Code(s): E11.9 - Type 2 diabetes mellitus without complications (7) Hypertension: Status: Chronic Category: Medical Code(s): I10 - Essential (primary) hypertension (8) Anxiety: Status: Chronic Category: Medical Code(s): F41.9 - Anxiety disorder, unspecified (9) Respiratory alkalosis: Status: Resolved Category: Medical Code(s): E87.3 - Alkalosis (10) Hypomagnesemia: Status: Resolved Category: Medical Code(s): E83.42 - Hypomagnesemia Plan 73-year-old female with PMHx of diabetes, intellectual disability, anxiety, progressive debility. She is a resident at [facility]. She was brought by EMS to the ER for decreased p.o. intake and concern for urinary retention. Found to have UTI and urinary retention. Necessitated Chowdary catheter and evaluation by urology. Patient was previously admitted for a month at which point guardianship was initiated due to patient's intellectual disability, need for long-term care, and inability to make informed decisions. She has clinically shown improvement and is medically stable for discharge at this time pending guardianship decision. She unfortunately is too medically complex to return back to her personal-[facility]. Her kidney injury has resolved, her UTI has resolved, and is doing better with her independent voiding with regular reminding by staff to go to the bathroom and using medications to help her bladder relax. Patient is oriented to self and time but is disoriented to situation, place. Has very poor recall and short-term memory. Case management assisting with placement. Guardianship approved yesterday. Stable to discharge to long-term care once approved. Problems addressed as follows: Stable chronic conditions Anxiety: Continue BuSpar 10 mg twice daily, Ativan 0.25 mg twice daily, and Zoloft 100 mg daily Hypertension and sinus tachycardia: Continue metoprolol. Vitals normal with blood pressure 103/54, heart rate 83. Urinary retention, resolved: Continue tamsulosin 0.4 mg twice daily. Hx of NIDDM: A1c 4.9 during last admission.continue metformin 500 mg orally once daily. Anemia persistent: Most recent hemoglobin 9.5 on 03/22.kidney function and electrolytes on 03/22 stable with sodium 137, potassium 4.1, magnesium 1.9. Kidney function stable with BUN 12, creatinine 0.8. PLOV for dvt ppx protonix Full code regular diet PT and OT working with patient. Case management assisting with decision making capacity/potential guardianship for referral to rehab.
[2024-03-23 15:55] VITALS: BP 97/56; PULSE 67; RESP 25; TEMP 36.5; O2SAT 100
[2024-03-23] MEDS: PRENATAL MULTIVITAMIN W/IRON 1 EACH PO (17:53)
--- NOTE | 2024-03-23 18:48 | PC.NURSE ---
Pt has done well since taking report. No acute changes. VSS.
[2024-03-23 20:00] VITALS: BP 107/58; PULSE 77; RESP 18; TEMP 36.5; O2SAT 99
[2024-03-24 04:00] VITALS: BP 108/40; PULSE 83; RESP 16; TEMP 36.9; O2SAT 99; BMI 27.3
[2024-03-24] MEDS: METFORMIN 500MG TABLET 500 MG PO (06:38)
--- NOTE | 2024-03-24 07:25 | EXP.DC.SUM ---
General Admission date:: 02/24/24 Discharge date: 03/24/24 HPI HPI HPI: Ms. Montes is a pleasant 73-year-old female oriented to self only. Lives at [facility]. Was recently admitted for a prolonged course due to debility and need for guardianship and placement. During her course she rehab and was able to transition back to her personal-long-term due to independent voiding, removal of catheter, and ability to ambulate with walker. She presented to the ER today however due to decreased p.o. intake and decreased urine output. Initial presentation to the ER with workup including urinalysis and basic labs. Patient found to have urinary retention with almost a liter of output with placement of Chowdary. Urine concerning for UTI. Labs showing KRISTIE. Given presence of catheter, patient unable to return back to her personal-long-term. She appears anxious at this time and is tremulous on exam. At baseline mentation. Medicine consulted for admission. On my evaluation, patient is afebrile and stable on room air. At baseline mentation. Knows my face but does not know my name. Knows who she is but is unsure where she is or why. Tolerating p.o. intake. Chowdary draining luann urine. Denies chest pain or shortness of breath. No nausea or vomiting. Hospital Course Hospital Course Hospital Course: 73-year-old female with PMHx of diabetes, intellectual disability, anxiety, progressive debility. She is a resident at [facility]. She was brought by EMS to the ER for decreased p.o. intake and concern for urinary retention. Found to have UTI and urinary retention. Necessitated Chowdary catheter and evaluation by urology. Patient was previously admitted for a month at which point guardianship was initiated due to patient's intellectual disability, need for long-term care, and inability to make informed decisions. She has clinically shown improvement and is medically stable for discharge at this time pending guardianship decision. She unfortunately is too medically complex to return back to her personal-long-term. Her kidney injury has resolved, her UTI has resolved, and is doing better with her independent voiding with regular reminding by staff to go to the bathroom and using medications to help her bladder relax. Patient is oriented to self and time but is disoriented to situation, place. Has very poor recall and short-term memory. It is my opinion she does not have the capacity to make informed decisions in regard to her health including but not limited to placement or higher level interventions such as surgeries and procedures. Mini-Mental exam performed on 03/15 with a score of 11 out of 30. Patient was oriented to herself, the season, the year. Disoriented to location, thinks she is in [facility]. When asked to repeat 3 objects, she could only repeat 2 of the 3 with immediate recall. Short-term recall she could not repeat any of the objects. Patient could not perform serial sevens with counting. Unable to write a sentence or copy a picture. She is able to follow simple commands. Is conversant and pleasant. Is my opinion she needs placement due to her progressive debility/weakness, ongoing medical needs, and inability to care for herself. Problems during the and addressed as follows: - Anxiety: Continue BuSpar 10 mg twice daily.her home Ativan was weaned to lowest dose necessary to give benefit while minimizing side effect profile. Continuing Ativan 0.25 mg twice daily, and Zoloft 100 mg daily; electronic prescription sent to [facility] pharmacy [facility] prior to discharge. - Hypertension and sinus tachycardia: Continue Lasix 40 mg daily and metoprolol tartrate 25 mg twice daily. Tolerating well with good control of heart rate and blood pressure. Blood pressure on morning of discharge 108/40. Heart rate in the 80s. - Urinary retention, resolved: Continue tamsulosin 0.4 mg twice daily. Has been voiding independently for several weeks. If develops recurrence of UTI or retention, would benefit from referral back to Dr. Coats with urology at [facility]. - Hx of NIDDM: A1c 4.9 during last admission.continue metformin 500 mg orally once daily. Morning glucoses well-controlled in the low 100s. No indication for insulin or higher dose therapy. Do not see an indication for regular fingersticks either. - Hypomagnesemia: Continue magnesium for 100 mg daily. Most recent magnesium 1.9 2 days ago. Would benefit from repeat CBC, CMP, magnesium in 1 week. PT and OT working with patient daily. Continues to get around with a walker. Total time spent on discharge 32 minutes in counseling, documentation, chart review, and direct care with patient. Exam Data for Last 24 hours Vital signs and Labs for Last 24 Hours: Temp Pulse Resp BP Pulse Ox O2 Del Method O2 Flow Rate 97.7 F 65 20 110/55 L 100 Room Air 2 03/22/24 08:00 03/22/24 08:00 03/22/24 08:00 03/22/24 08:00 03/22/24 08:00 03/22/24 14:54 03/18/24 16:00 Laboratory Results - last 24 hr 03/22/24 05:51: WBC 4.9, RBC 3.01 L, Hgb 9.5 L, Hct 29.6 L, MCV 98.3, MCH 31.7 H, MCHC 32.2, RDW 15.1, Plt Count 216, MPV 8.5, Neut % (Auto) 43.2, Lymph % (Auto) 46.6, [place] % (Auto) 5.8, Eos % (Auto) 3.7, Baso % (Auto) 0.7, Neut # (Auto) 2.1, Lymph # (Auto) 2.3, [place] # (Auto) 0.3, Eos # (Auto) 0.2, Baso # (Auto) 0.0, Sodium 137, Potassium 4.1, Chloride 105, Carbon Dioxide 24, Anion Gap 12.1, BUN 12, Creatinine 0.80, Estimated Creat Clear 55, Estimated GFR 70, Est GFR ( Amer) 85, Glucose 124 H, Calcium 9.1, Magnesium 1.9 I & O for Last 24 hours: Intake & Output 03/19/24 03/20/24 03/21/24 03/22/24 23:59 23:59 23:59 23:59 Intake Total 962 / 962 1740 / 1740 1230 / 1470 1040 / 1040 Output Total 0 / 0 0 / 0 0 / 0 0 / 0 Balance 962 / 962 1740 / 1740 1230 / 1470 1040 / 1040 Weight 68.946 kg 68.039 kg 68.629 kg 70.76 kg Constitutional Constitutional: no acute distress, average body habitus and cooperative *Routine HEENT Exam Head: Present normocephalic Eye: Present EOMI and PERRL ENT: Present mucous membranes moist *Routine Neck Exam Neck: Present supple; Absent lymphadenopathy *Routine Respiratory Exam Respiratory: Present CTA bilaterally; Absent rhonchi, wheezes or crackles *Routine Cardiovascular Exam Cardiovascular: Present RRR *Routine Abdominal Exam Abdominal: Present soft and normoactive bowel sounds; Absent tenderness *Routine Rectal Exam Patient deferred: visual exam *Routine Exam Patient deferred: external exam *Routine Extremities Exam Extremities: Absent cyanosis, clubbing or edema *Routine Skin Exam Skin: Present intact and warm; Absent rash *Routine Neurological Exam Neurological: Present alert and moving all extremities; Absent altered mental status Comments: Resident, oriented to self, answers questions appropriately Results Data Completed and Pending Labs on day of discharge: Labs from last 24 hours 03/22/24 05:51 WBC 4.9 RBC 3.01 L Hgb 9.5 L Hct 29.6 L MCV 98.3 MCH 31.7 H MCHC 32.2 RDW 15.1 Plt Count 216 MPV 8.5 Neut % (Auto) 43.2 Lymph % (Auto) 46.6 [place] % (Auto) 5.8 Eos % (Auto) 3.7 Baso % (Auto) 0.7 Neut # (Auto) 2.1 Lymph # (Auto) 2.3 [place] # (Auto) 0.3 Eos # (Auto) 0.2 Baso # (Auto) 0.0 Sodium 137 Potassium 4.1 Chloride 105 Carbon Dioxide 24 Anion Gap 12.1 BUN 12 Creatinine 0.80 Estimated Creat Clear 55 Estimated GFR 70 Est GFR ( Amer) 85 Glucose 124 H Calcium 9.1 Magnesium 1.9 DS: Diagnosis Discharge Diagnosis (1) Weakness: Status: Acute Code(s): R53.1 - Weakness (2) Intellectual disability: Status: Acute Code(s): F79 - Unspecified intellectual disabilities (3) Urinary retention: Status: Resolved Code(s): R33.9 - Retention of urine, unspecified (4) Hypokalemia: Status: Resolved Code(s): E87.6 - Hypokalemia (5) Anemia: Status: Chronic Code(s): D64.9 - Anemia, unspecified (6) Diabetes mellitus, type 2: Status: Chronic Code(s): E11.9 - Type 2 diabetes mellitus without complications Qualifiers: Diabetes mellitus complication status: with other specified complication Diabetes mellitus halfway insulin use: without halfway use Qualified Code(s): E11.69 - Type 2 diabetes mellitus with other specified complication (7) Hypertension: Status: Chronic Code(s): I10 - Essential (primary) hypertension (8) Anxiety: Status: Chronic Code(s): F41.9 - Anxiety disorder, unspecified (9) Respiratory alkalosis: Status: Resolved Code(s): E87.3 - Alkalosis (10) Hypomagnesemia: Status: Resolved Code(s): E83.42 - Hypomagnesemia Meds Home Medications and Allergies Home Medications Medication Instructions Recorded Confirmed Type nystatin 100,000 unit/gram topical 1 applic topical BID 01/10/24 02/25/24 History powder acetaminophen 650 mg 650 mg PO TID PRN Fever Or Pain 30 03/23/24 02/25/24 Rx tablet,extended release (Tylenol 8 days #0 tabs Hour) aspirin 81 mg chewable tablet 81 mg PO DAILY 30 days #30 tabs 03/23/24 Rx buspirone 10 mg tablet 10 mg PO BID 30 days #60 tabs 03/23/24 Rx ergocalciferol (vitamin D2) 1,250 1,250 mcg PO TU 30 days #4 caps 03/23/24 Rx mcg (50,000 unit) capsule (Vitamin D2) famotidine 20 mg tablet 20 mg PO BID 30 days #60 tabs 03/23/24 Rx furosemide 40 mg tablet 40 mg PO DAILY 30 days #30 tabs 03/23/24 Rx lorazepam 0.5 mg tablet 0.25 mg (1/2 x 0.5 mg) PO BID 30 03/23/24 Rx days #30 tabs magnesium oxide 400 mg (241.3 mg 400 mg PO DAILY 30 days #30 tabs 03/23/24 Rx magnesium) tablet metformin 500 mg tablet 500 mg PO BIDWMEAL 30 days #60 tabs 03/23/24 Rx metoprolol tartrate 25 mg tablet 25 mg PO BID 30 days #60 tabs 03/23/24 Rx vits no.130-ferrous fum 1 tab PO DAILY 30 days #30 tabs 03/23/24 Rx 27 mg iron-folic acid 800 mcg tablet ( Vitamin) sennosides 8.6 mg-docusate sodium 1 tab PO DAILY PRN Constipation 30 03/23/24 Rx 50 mg tablet (Stimulant Laxative days #30 tabs Plus) sertraline 100 mg tablet 100 mg PO DAILY 30 days #30 tabs 03/23/24 Rx tamsulosin 0.4 mg capsule 0.4 mg PO BID 30 days #60 caps 03/23/24 Rx New Prescriptions to Start Prescriptions: aspirin Katerin,Molina buspirone Katerin,Molina ergocalciferol (vitamin D2) [Vitamin D2] Molina Conklin famotidine Katerin,Molina furosemide Katerin,Molina lorazepam Katerin,Molina magnesium oxide Katerin,Molina metformin Katerin,Molina metoprolol tartrate Molina Conklin vit [id number] [ Vitamin] Molina Conklin sennosides-docusate sodium [Stimulant Laxative Plus] Katerin,Molina sertraline Katerin,Molina tamsulosin Katerin,Molina Allergies Allergy/AdvReac Type Severity Reaction Status Date / Time Penicillins Allergy Mild Verified 02/24/24 12:58 Discharge Plan Disposition Patient Disposition: er Intermediate Care Fac Condition: Good Follow up Plan Prescriptions/Medication Reconciliation: New sennosides-docusate sodium [Stimulant Laxative Plus] 8.6-50 mg Tablet 1 tab PO DAILY PRN (Reason: Constipation) 30 Days Qty: 30 0RF Continued nystatin 100,000 unit/gram Powder 1 applic TOPICAL BID furosemide 40 mg Tablet 40 mg PO DAILY 30 Days Qty: 30 0RF metformin 500 mg Tablet 500 mg PO BIDWMEAL 30 Days Qty: 60 0RF sertraline 100 mg tablet 100 mg PO DAILY 30 Days Qty: 30 0RF famotidine 20 mg tablet 20 mg PO BID 30 Days Qty: 60 0RF magnesium oxide 400 mg (241.3 mg magnesium) Tablet 400 mg PO DAILY 30 Days Qty: 30 0RF tamsulosin 0.4 mg Capsule 0.4 mg PO BID 30 Days Qty: 60 0RF buspirone 10 mg tablet 10 mg PO BID 30 Days Qty: 60 0RF aspirin 81 mg Tablet,Chewable 81 mg PO DAILY 30 Days Qty: 30 0RF ergocalciferol (vitamin D2) [Vitamin D2] 1,250 mcg (50,000 unit) Capsule 1,250 mcg PO TU 30 Days Qty: 4 0RF lorazepam 0.5 mg Tablet 0.25 mg PO BID 30 Days Qty: 30 0RF Changed acetaminophen [Tylenol 8 Hour] 650 mg Tablet Extended Release 650 mg PO TID PRN (Reason: Fever Or Pain) 30 Days Qty: 0 0RF metoprolol tartrate 25 mg tablet 25 mg PO BID 30 Days Qty: 60 0RF Vitamin 27 mg iron- 800 mcg tablet 1 tab PO DAILY 30 Days Qty: 30 0RF Problem Reconciliation Problems Reviewed?: Yes Patient Discharge Instructions ACTIVITY: Continue current activity DIET: continue same diet Patient Instructions: DI for Urinary Tract Infection (UTI), DI for Hypokalemia, DI for Urinary Retention in Women, Catheter-associated Urinary Tract Infection Providers Primary Care Provider: Honorio Teixeira Admit Provider: Molina Conklin Attending Provider: Molina Conklin
[2024-03-24 08:00] VITALS: BP 100/62; PULSE 66; RESP 16; TEMP 37.2; O2SAT 99
[2024-03-24] MEDS: ENOXAPARIN 40MG/0.4ML SYRINGE 40 MG SQ (08:23)
[2024-03-24] MEDS: ASPIRIN 81MG CHEWABLE TABLET 81 MG PO (08:23)
[2024-03-24] MEDS: BUSPIRONE HCL 10 MG TABLET PO (08:23)
[2024-03-24] MEDS: ASCORBIC ACID 500MG TAB 500 MG PO (08:23)
[2024-03-24] MEDS: ERGOCALCIFEROL 50,000 UNITS (1.25MG) CAPSULE 50000 UNIT PO (08:24)
[2024-03-24] MEDS: METOPROLOL TARTRATE 25MG TABLET 25 MG PO (08:24)
[2024-03-24] MEDS: SENNOSIDES 8.6MG/DOCUSATE 50MG TABLET 1 TAB PO (08:24)
[2024-03-24] MEDS: FAMOTIDINE 20MG TABLET 20 MG PO (08:24)
[2024-03-24] MEDS: SERTRALINE 100MG TABLET 100 MG PO (08:24)
[2024-03-24] MEDS: FUROSEMIDE 40 MG TABLET PO (08:24)
[2024-03-24] MEDS: NYSTATIN TOPICAL POWDER 30GM TP (08:24)
[2024-03-24] MEDS: MAGNESIUM OXIDE 400MG TABLET 400 MG PO (08:24)
[2024-03-24] MEDS: TAMSULOSIN 0.4MG CAPSULE 0.400000000000000022 MG PO (08:25)
[2024-03-24] MEDS: LORazepam 0.5MG TABLET 0.25 MG PO (08:28)
--- NOTE | 2024-03-24 09:17 | CARE MANAGER ---
Contacted [facility] for transportation. Reservation #[id number]
== END 2024-03-24 10:16 ==
LOC: ER 12:41 → 2ND 15:21
PROVIDERS: Internal Medicine; Nurse Practitioner Family; Admitting Provider Internal Medicine Adolescent Medicine; Emergency Provider Emergency Medicine; PCP Nurse Practitioner Acute Care; Visit Provider Internal Medicine Adolescent Medicine
DX: N39.0 Urinary tract infection, site not specified (principal); N17.9 Acute kidney failure, unspecified; R33.9 Retention of urine, unspecified; R53.1 Weakness; D64.9 Anemia, unspecified; E11.69 Type 2 diabetes mellitus with other specified complication; B37.2 Candidiasis of skin and nail; I10 Essential (primary) hypertension; F41.9 Anxiety disorder, unspecified; E87.3 Alkalosis; E87.6 Hypokalemia; E83.42 Hypomagnesemia; F79 Unspecified intellectual disabilities; B96.4 Proteus (mirabilis) (morganii) as the cause of diseases classified elsewhere
CPT/HCPCS: 36415; 51702; 70450; 71045; 80048; 80053; 80307; 80320; 80329; 81001; 82009; 82550; 82803; 82962; 83605; 83690; 83735; 83930; 84439; 84443; 84484; 85007; 85025; 87086; 87088; 87186; 87506; 93005; 97110; 97116; 97163; 97166; 97530; 97535; 99251; 99285; G0378; G0480; J0456; J0696; J1650; J1956; J3475; J7120

== ENCOUNTER 2024-05-11 15:17 | Outpatient (CLI) | payer MEDICARE, SELFPAY ==
[2024-05-11 17:28] LABS: Basophils # 0.1 K/mm3 (0-0.2); Basophils % 1.4 % (0.1-2.0); Eosinophils # 0.1 K/mm3 (0.0-0.4); Eosinophils % 2.3 % (0.1-12.0); Hematocrit 37.6 % (37.0-47.0); Hemoglobin 11.9 g/dL (12.2-16.2); Lymphocytes # 3.3 K/mm3 (0.7-4.5); Lymphocytes % 52.7 % (10-50); Mean Corpuscular HGB Conc 31.8 g/dL (31.8-35.4); Mean Corpuscular Hemoglobin 29.8 pg (27.0-31.2); Mean Corpuscular Volume 93.7 fl (81-99); Monocytes # 0.4 K/mm3 (0.1-1.0); Monocytes % 5.5 % (1.7-9.3); Neutrophils # 2.4 K/mm3 (1.8-7.8); Neutrophils % 38.1 % (37.0-80.0); Platelet Count 231 K/mm3 (142-424); Red Blood Count 4.01 M/mm3 (4.20-5.40); Red Cell Distribution Width 14.6 % (11.5-17.5); White Blood Count 6.3 K/mm3 (4.8-10.8)
[2024-05-11 17:32] LABS: MANUAL DIFFERENTIAL MANUAL DIFFERENTIAL (MANUAL DIFF)
[2024-05-11 17:33] LABS: Iron 81 ug/dL (37-170)
[2024-05-11 17:42] LABS: Total Iron Binding Capacity 341 ug/dL (265-497)
[2024-05-11 18:08] LABS: Ferritin 17.8 ng/ml (11.1-264)
[2024-05-12 04:02] LABS: Eosinophils % 3 % (0-3); Lymphocytes % 55 % (10-50); Monocytes % 6 % (2-9); Neutrophils % 36 % (42-76); Platelet Estimate Normal; RBC Morphology Normal; Total Cells Counted 100
== END 2024-05-11 23:59 | disposition home or self-care (01) ==
LOC: LAB.DROPOF 15:20
PROVIDERS: PCP Family Medicine; Visit Provider Family Medicine
DX: R62.7 Adult failure to thrive (principal); D50.9 Iron deficiency anemia, unspecified
CPT/HCPCS: 82728; 83540; 83550; 85007; 85025; 85027

== ENCOUNTER 2024-05-14 14:44 | Outpatient (CLI) | payer MEDICARE, SELFPAY ==
--- NOTE | 2024-05-14 14:45 | MM_ITS ---
PROCEDURE INFORMATION: Exam: MG Bilateral Screening 3D Mammography Exam date and time: 05/14/2024 2:31 PM Age: 73 years old Clinical indication: Screening examination TECHNIQUE: Imaging protocol: Bilateral Screening tomosynthesis and 2D mammography including computer-aided detection (CAD) when performed. COMPARISON: No relevant prior studies available. FINDINGS: MAMMOGRAPHY: Breast composition: The breasts are heterogeneously dense, which may obscure small masses. Mass: None. Architectural distortion: None. Calcifications: No suspicious calcifications. Asymmetric density: None. Skin thickening: None. Axillary adenopathy: None. IMPRESSION: No mammographic evidence of malignancy. Annual screening is recommended unless otherwise clinically indicated. ASSESSMENT: BI-RADS Category 1: Negative
== END 2024-05-14 23:59 | disposition home or self-care (01) ==
LOC: RAD 14:45
PROVIDERS: PCP Family Medicine; Visit Provider Family Medicine
DX: Z12.31 Encounter for screening mammogram for malignant neoplasm of breast (principal)
CPT/HCPCS: 77063; 77067

== ENCOUNTER 2024-08-09 11:09 | Day surgery (SDC) | payer MEDICARE, MEDICAID, SELFPAY ==
[2024-08-09 11:59] VITALS: BP 125/61; PULSE 61; RESP 18; TEMP 36.6; O2SAT 93; BMI 26.6
[2024-08-09] MEDS: LACTATED RINGERS 1000ML 1,000 ML 25 ML IV (12:18)
[2024-08-09 12:43] VITALS: O2SAT 93
--- NOTE | 2024-08-09 12:44 | P.PNANES_ITS ---
[facility] Disclaimer: The information contained in this section may have been updated after the patient was seen, as this information can be updated by other users. Medical History Dementia Urinary retention Candidal intertrigo Weakness Colon cancer screening Screening mammogram for breast cancer KRISTIE (acute kidney injury) Hypokalemia Candidal dermatitis Generalized weakness Respiratory alkalosis Hypomagnesemia Diabetes mellitus, type 2 Social History Smoking Status: Never smoker alcohol intake: never substance use type: denies use current occupational status: other Travel in the last 8 weeks: None [facility] Anesthesia Checklist Patient Identification Patient Identification: Arm Band Structural Data Admitted From: Long-term Nursing Facility Planned Operative Procedure/s: Colonoscopy Consent for Planned Operative Procedure(s) Verified: Yes Verified Documents: Surgical Consent and History and Physical NPO Status Verified Time NPO: 08:00 (prep) Additional verifications Anesthesia Reactions: No Airway Assessment Mallampati Score:: Class II C-Spine Mobility Assessed: Yes TMJ Mobility Assessed: Yes Neurological Assessment Level of Consciousness: Awake Anesthesia Plan Anesthesia Risk discussed: Yes Anesthesia Plan: Verified ASA Class: III Anesthesia Type: MAC Preoperative Comments Pre-Operative Comments: Pt alert to self only. Most of history obtained from chart.
--- NOTE | 2024-08-09 12:50 | P.HP_ITS ---
History of Present Illness *Admission Date: 08/09/24 *Reason for visit:: Iron deficiency anemia *History of present illness: Mrs. Montes is a 73-year-old female with dementia from the m[facility] who is here for diagnostic colonoscopy secondary to iron deficiency. The examination is deemed medically necessary for colonoscopy. The patient has been seen, interviewed and examined prior to the procedure by both myself and the anesthesia provider. [facility] Disclaimer: The information contained in this section may have been updated after the patient was seen, as this information can be updated by other users. Medical History Dementia Urinary retention Candidal intertrigo Weakness Colon cancer screening Screening mammogram for breast cancer KRISTIE (acute kidney injury) Hypokalemia Candidal dermatitis Generalized weakness Respiratory alkalosis Hypomagnesemia Diabetes mellitus, type 2 Social History (Updated 08/09/24 @ 12:46 by Sylvester Reddy CRNA) Smoking Status: Never smoker alcohol intake: never substance use type: denies use current occupational status: other Travel in the last 8 weeks: None Other Medical History Have you received the Flu Vaccine for this season: No Have you received the Pneumonia Vaccine: Yes Review of Systems Review of Systems Review of systems (narrative): Negative *Cardiovascular Comments: Negative *Gastrointestinal Comments: Negative *Genitourinary Comments: Negative *Musculoskeletal Comments: Negative *Neurologic Comments: Negative Meds Home Medications and Allergies Home Medications ?Medication ?Instructions ?Recorded ?Confirmed ?Type acetaminophen 650 mg 650 mg PO TID PRN Fever Or Pain 30 03/23/24 08/09/24 Rx tablet,extended release (Tylenol 8 days #0 tabs Hour) aspirin 81 mg chewable tablet 81 mg PO DAILY 30 days #30 tabs 03/23/24 08/09/24 Rx ergocalciferol (vitamin D2) 1,250 1,250 mcg PO TU 30 days #4 caps 03/23/24 08/09/24 Rx mcg (50,000 unit) capsule (Vitamin D2) famotidine 20 mg tablet 20 mg PO BID 30 days #60 tabs 03/23/24 08/09/24 Rx furosemide 40 mg tablet 40 mg PO DAILY 30 days #30 tabs 03/23/24 08/09/24 Rx magnesium oxide 400 mg (241.3 mg 400 mg PO DAILY 30 days #30 tabs 03/23/24 08/09/24 Rx magnesium) tablet metformin 500 mg tablet 500 mg PO BIDWMEAL 30 days #60 tabs 03/23/24 08/09/24 Rx metoprolol tartrate 25 mg tablet 25 mg PO BID 30 days #60 tabs 03/23/24 08/09/24 Rx vits no.130-ferrous fum 1 tab PO DAILY 30 days #30 tabs 03/23/24 08/09/24 Rx 27 mg iron-folic acid 800 mcg tablet ( Vitamin) sennosides 8.6 mg-docusate sodium 1 tab PO DAILY PRN Constipation 30 03/23/24 08/09/24 Rx 50 mg tablet (Stimulant Laxative days #30 tabs Plus) tamsulosin 0.4 mg capsule 0.4 mg PO BID 30 days #60 caps 03/23/24 08/09/24 Rx sertraline 150 mg capsule 150 mg PO DAILY 05/05/24 08/09/24 History lorazepam 0.5 mg tablet 0.25 mg (1/2 x 0.5 mg) PO BID #30 06/21/24 08/09/24 Rx tabs ferrous sulfate 325 mg (65 mg 325 mg PO DAILY 07/17/24 08/09/24 History iron) tablet New Prescriptions to Start Prescriptions: Allergies Allergy/AdvReac Type Severity Reaction Status Date / Time Penicillins Allergy Mild Other Verified 08/09/24 11:56 Exam Data for Last 24 hours Vital signs and Labs for Last 24 Hours: Temp Pulse Resp BP Pulse Ox O2 Del Method 97.9 F 61 18 125/61 93 L Room Air 08/09/24 11:59 08/09/24 11:59 08/09/24 11:59 08/09/24 11:59 08/09/24 11:59 08/09/24 11:59 I & O for Last 24 hours: Intake & Output 08/06/24 08/07/24 08/08/24 08/09/24 23:59 23:59 23:59 23:59 Weight 160 lb *Routine HEENT Exam Head: Present normocephalic Eye: Present EOMI and PERRL ENT: Present mucous membranes moist *Routine Neck Exam Neck: Present supple *Routine Respiratory Exam Respiratory: Present CTA bilaterally *Routine Cardiovascular Exam Cardiovascular: Present RRR *Routine Abdominal Exam Abdominal: Present soft and normoactive bowel sounds; Absent tenderness *Routine Rectal Exam Rectal:: deferred *Routine Genitalia Exam Genitalia:: deferred *Routine Extremities Exam Extremities: Absent cyanosis, clubbing or edema *Routine Skin Exam Skin: Present warm; Absent rash *Routine Neurological Exam Neurological: Present alert and oriented X3 Assessment and Plan *Assessment and plan (1) Iron deficiency: Status: Acute Category: Medical Code(s): E61.1 - Iron deficiency (2) Iron deficiency anemia: Status: Acute Category: Medical Code(s): D50.9 - Iron deficiency anemia, unspecified Plan A/P: 1. Iron deficiency anemia is the preprocedural diagnosis. The patient will be anesthetized/sedated using MAC sedation. The patient has been seen and examined. Cardiac and lung assessment prior to the examination is stable. Proceed with planned colonoscopy
--- NOTE | 2024-08-09 12:52 | HMH.PROCNOTE ---
[facility] Procedure Note Date: 08/09/24 Time: 13:07 Procedure Note:: Colonoscopy Procedure Report: Colonoscopy Endoscopist: Tj Sarmiento II, MD Referring physician: Umer Lemons MD/BRANDEN Aguayo Date of Procedure: August 09, 2024 Equipment: Olympus 190 variable stiffness pediatric colonoscope Sedation: MAC sedation Indication: Mrs. Montes is a 73-year-old female who is here for diagnostic colonoscopy secondary to iron deficiency anemia. The patient does have dementia and resides in the long-term and cannot give a full history. She does have some chronic constipation. Apparently, the patient did have a Cologuard but I do not presently have these results. She is on baby aspirin but not on anticoagulation. She has never had a colonoscopy. Procedure: Prior to the procedure, a history and physical exam was performed, and patient's medications and allergies were reviewed. The risks, benefits and alternatives of the sedation and procedure were discussed with the patient. All questions were answered and informed consent was obtained. The patient was brought to the procedure room. Patient identification and proposed procedure were verified by the physician and the nurse. The patient was placed in a left lateral decubitus position and the scope was passed under direct vision. Throughout the procedure, the patient's blood pressure, pulse, and oxygen saturations were monitored continuously. The colonoscopy was accomplished without difficulty. The patient tolerated the procedure well. Findings: On digital rectal examination there was normal rectal tone. There were no external hemorrhoids. The colonoscope was introduced through the anal canal to the rectum and advanced to the cecum. The ileocecal valve and appendiceal orifice were identified. The scope was advanced a short distance into the ileum which appeared grossly normal. The scope was then withdrawn into the colon. The cecum, ascending, transverse, descending, sigmoid and rectum were grossly normal. There were no mucosal abnormalities identified. Upon retroflexion within the rectum there were grade 1-2 internal hemorrhoids.The preparation was excellent throughout with [place] Preparation Score of 9. The cecal time was 10 minutes. Impression: 1. Normal colonoscopy with intubation of the terminal ileum 2. Grade 1-2 internal hemorrhoids Plan: There was no etiology for the patient's iron deficiency anemia. I would recommend Hemoccult testing. If the patient is Hemoccult positive, I would consider diagnostic upper endoscopy. The patient should not require any further surveillance colonoscopy.
[2024-08-09 13:10] VITALS: BP 87/45; PULSE 56; RESP 15; TEMP 36.3; O2SAT 94
[2024-08-09 13:20] VITALS: BP 89/52; PULSE 55; RESP 15; O2SAT 98
[2024-08-09 13:28] LABS: Occult Blood,Stool Negative (Negative)
[2024-08-09 13:30] VITALS: BP 108/77; PULSE 59; RESP 16; O2SAT 99
[2024-08-09 13:40] VITALS: BP 113/72; PULSE 61; RESP 17; TEMP 36.8; O2SAT 99
[2024-08-10 11:13] LABS: POC Glucose,Bedside 116 (70-110)
== END 2024-08-09 14:00 | disposition home or self-care (01) ==
PROVIDERS: PCP Family Medicine; Visit Provider Internal Medicine Gastroenterology
PROC: (CPT 45378; principal; 2024-08-09 13:00)
DX: D50.9 Iron deficiency anemia, unspecified (principal); K59.00 Constipation, unspecified; K64.8 Other hemorrhoids
CPT/HCPCS: 45378; 82272; 82962; G0328; J7120

== ENCOUNTER 2024-12-15 09:29 | Outpatient (CLI) | payer MEDICARE, MEDICAID, SELFPAY ==
[2024-12-15 09:40] LABS: Basophils % 0.7 % (0.1-2.0); Eosinophils # 0.2 K/mm3 (0.0-0.4); Eosinophils % 3.5 % (0.1-12.0); Hematocrit 32.7 % (37.0-47.0); Hemoglobin 10.9 g/dL (12.2-16.2); Lymphocytes # 2.5 K/mm3 (0.7-4.5); Lymphocytes % 55.4 % (10-50); Mean Corpuscular HGB Conc 33.3 g/dL (31.8-35.4); Mean Corpuscular Hemoglobin 30.3 pg (27.0-31.2); Mean Corpuscular Volume 90.8 fl (81-99); Mean Platelet Volume 10.2 fl (7.4-10.4); Monocytes # 0.4 K/mm3 (0.1-1.0); Monocytes % 8.1 % (1.7-9.3); Neutrophils # 1.5 K/mm3 (1.8-7.8); Neutrophils % 32.1 % (37.0-80.0); Platelet Count 163 K/mm3 (142-424); Red Cell Distribution Width 13.4 % (11.5-17.5); White Blood Count 4.6 K/mm3 (4.8-10.8)
[2024-12-15 09:42] LABS: MANUAL DIFFERENTIAL MANUAL DIFFERENTIAL (MANUAL DIFF)
[2024-12-15 11:21] LABS: Lymphocytes % 53 % (10-50); Monocytes % 5 % (2-9); Neutrophils % 42 % (42-76); Platelet Estimate Normal; RBC Morphology Normal; Total Cells Counted 100
== END 2024-12-15 23:59 | disposition home or self-care (01) ==
PROVIDERS: PCP Nurse Practitioner Family; Visit Provider Nurse Practitioner Family
DX: Z79.01 Long term (current) use of anticoagulants (principal)
CPT/HCPCS: 36415; 85007; 85025; 85027

== ENCOUNTER 2024-12-24 10:15 | Outpatient (CLI) | payer MEDICARE, MEDICAID, SELFPAY ==
[2024-12-24 10:38] LABS: Glucose,Fasting 97 mg/dl (74-100)
[2024-12-24 11:25] LABS: Hemoglobin A1C 5.4 % (4.0-6.0)
== END 2024-12-24 23:59 | disposition home or self-care (01) ==
LOC: LAB 10:16
PROVIDERS: PCP Nurse Practitioner Family; Visit Provider Nurse Practitioner Family
DX: E11.9 Type 2 diabetes mellitus without complications (principal)
CPT/HCPCS: 36415; 82947; 83036

== ENCOUNTER 2025-02-09 07:20 | Outpatient (CLI) | payer MEDICARE, MEDICAID, SELFPAY ==
[2025-02-09 08:00] LABS: Chol/HDL Ratio 3.9 (1-3.5); Cholesterol 172 mg/dl (140-200); HDL Cholesterol 44 mg/dl (40-60); Triglycerides 141 mg/dl (30-150); VLDL Cholesterol 28 mg/dL (0-40)
[2025-02-09 08:10] LABS: Direct LDL Cholesterol 87.77 mg/dL (100-129)
== END 2025-02-09 23:59 | disposition home or self-care (01) ==
PROVIDERS: PCP Nurse Practitioner Family; Visit Provider Nurse Practitioner Family
DX: E78.5 Hyperlipidemia, unspecified (principal)
CPT/HCPCS: 36415; 80061

== ENCOUNTER 2025-03-02 07:07 | Outpatient (CLI) | payer MEDICARE, MEDICAID, SELFPAY ==
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
--- OUTSIDE RECORDS SUMMARY | 2025-03-02 07:10 | XMS_ITS | Clinical Summary ---
Author Organization Healthcare Address [address] [place] [address] Care Team Providers Care Telephone Sales Agent Name Role Phone Pcp, No Primary Care Provider Unavailabl e Allergies Active Allergy Reactions Criticality Noted Date Comments Penicillins Unknown - Patient st ates they do not know rxn details Low 11/27/2023 Medications Arthritis Pain Relief 650 MG ER tablet Take 1 tablet (650 mg) by mouth 3 (three) times a day. 3 Active aspirin (Aspirin Low Dose) 81 MG chewable tablet Chew 1 tablet (81 mg) 1 (one) time each day. 3 Active busPIRone (Buspar) 10 MG tablet 4 Active clindamycin (Cleocin) 150 MG capsule 4 Active docusate sodium (Colace) 100 MG capsule 4 Active famotidine (Pepcid) 20 MG tablet 4 Active furosemide (Lasix) 20 MG tablet 3 Active NovoLOG FLEXPEN 100 UNIT/ML injection pen 3 Active ibuprofen 200 MG tablet Take 1 tablet (200 mg) by mouth every 8 (eight) hours if needed for mild pain. 3 Active Basaglar KwikPen 100 UNIT/ML injection pen 4 Active LORazepam (Ativan) 0.5 MG tablet Take 1 tablet (0.5 mg) by mouth 1 (one) time each day. 3 Active metFORMIN (Glucophage) 500 MG tablet Take 1 tablet (500 mg) by mouth 2 (two) times a day with meals. 4 Active mupirocin (Bactroban) 2 % ointment Apply 1 Application topically 2 (two) times a day. 3 Active naproxen (Naprosyn) 500 MG tablet Take 1 tablet (500 mg) by mouth 2 (two) times a day with meals. 3 Active nystatin (Mycostatin) 427849 UNIT/GM powder Apply 1 Application topically 2 (two) times a day. 3 Active potassium chloride CR (Klor-Con) 10 MEQ ER tablet Take 1 tablet (10 mEq) by mouth 1 (one) time each day. 3 Active sertraline (Zoloft) 100 MG tablet Take 1 tablet (100 mg) by mouth 1 (one) time each day. 4 Active Lancets (OneTouch Delica Plus [id number]) misc 3 Active OneTouch Verio test strip 3 Active ergocalciferol 1.25 MG (94363 UT) capsule Take 1 capsule (50,000 Units) by mouth 1 (one) time per week. 3 Active hydrOXYzine HCl (Atarax) 50 MG tablet Take 1 tablet (50 mg) by mouth 1 (one) time. Active albuterol 108 (90 Base) MCG/ACT inhaler Inhale 2 puffs 4 (four) times a day. Every 6 hours, as needed. Active Active Problems No known active problems Social History Tobacco Use Types Packs/Day Years Used Date Smoking Tobacco: Never Passive Smoke Exposure: Never Smokeless Tobacco: Never Tobacco Cessation:Counseling Given: Not Answered Alcohol Use Standard Drinks/Week Comments Never 0 (1 standard drink = 0.6 oz pur e alcohol) Comments Unknown Sex and Gender Information Value Date Recorded Sex Assigned at Not on file Legal Sex Female 11:37 AM EST Gender Identity Not on file Sexual Orientation Not on file Last Filed Vital Signs Vital Sign Reading Time Taken Comments Blood Pressure 148/130 11/27/2023 11:01 AM EST Pulse 38 11/27/2023 11:01 AM EST Temperature 36.2 C (97.1 F) 11/27/2023 11:01 AM EST Respiratory Rate - - Oxygen Saturation - - Inhaled Oxygen Concentration - - Weight - - Height - - Body Mass Index - - Plan of Treatment Health Maintenance Due Date Last Done Comments [facility]-Bone Density Scan 1949 [facility]-Depression Screening 1949 [facility]-Hepatitis C Screening 1950 Y-Medicare Annual Wellness (AWV) 1950 [facility]-Infant/Child/Adol SDOH Screenings 1949 [facility]- SDOH Screenings 1967 [facility]-Adult SDOH Screenings 1967 CT Colonography 1994 Colonoscopy 1994 FIT-DNA 1994 FIT 1994 FOBT 1994 Sigmoidoscopy 1994 [facility]-Colorectal Cancer Screening 1994 [facility]-Zoster Vaccines (1 of 2) 1999 [facility]-Pneumococcal Vaccine: 50+ Years (2 of 2 - PCV) 11/17/2016 11/17/2015 [facility]-DTaP,Tdap,and Td Vaccines (3 - Td or Tdap) 08/29/2020 08/29/2010, 08/03/2008 [id number] Vaccine (5 - season) 2024 07/22/2023, 08/02/2022, 11/15/2020, Additional history exists [facility]-RSV Vaccine: 60+ Years or (1 - 1-dose 75+ series) 2024 [facility]-Influenza Vaccine (Season Ended) 2025 07/22/2023, 08/02/2022, 07/06/2020, Additional history exists HPV Vaccines Aged Out No longer eligi ble based on patient's age to complete this topic [facility]-HIB Vaccines Aged Out No longer e ligible based on patient's age to complete this topic [facility]-Hepatitis A Vaccines Aged Out No longer eligible based on patient's age to complete this topic [facility]-IPV Vaccines Aged Out No longer e ligible based on patient's age to complete this topic [facility]-Rotavirus Vaccines Aged Out No lo nger eligible based on patient's age to complete this topic Insurance [place] [address] Care Teams Telephone Sales Agent Relationship Specialty Start Date End Date Pcp, [facility] [address] [place] [address] PCP - General Family Medicine 11/27/23
--- OUTSIDE RECORDS SUMMARY | 2025-03-02 08:10 | XMS_ITS | CCD ---
Author Organization Unknown Care Team Providers Care Retail Training Manager Name Role Phone Unavailable Primary Care Provider Unavailabl e Unavailable Chronic Care Management Unavaila ble Summary Purpose DataExchange Insurance Providers Payer name Policy type / Coverage type Covered democrat ID Effective Begin Date Effective End Date [place] [id number] Unknown Unknown Family History Family History data not found Medication Administered No Medication Administered data Reason For Visit No Reason For Visit data Medical Equipment No Medical Equipment data Advance Directives No Advance Directive data
[2025-03-02 08:18] LABS: Estimated Glomerular Filt Rate 61 ml/min (>60); GFR (African American) 74 ML/MIN (>60)
== END 2025-03-02 23:59 | disposition home or self-care (01) ==
PROVIDERS: PCP Nurse Practitioner Family; Visit Provider Nurse Practitioner Family
DX: R79.89 Other specified abnormal findings of blood chemistry (principal)
CPT/HCPCS: 36415; 82565

== ENCOUNTER 2025-04-25 07:13 | Outpatient (CLI) | payer MEDICARE, MEDICAID, SELFPAY ==
--- OUTSIDE RECORDS SUMMARY | 2023-03-12 11:00 | XMS_ITS | Continuity of Care Document ---
Author Organization [address] [place] [address] Address [address] [facility] [address] [place] [address] Phone Care Team Providers Care Tailer Out Name Role Phone Tommie Merino DPM Unavailable [...] Diagnoses Date Provider Providers Copied on Encounter [facility], [address] [place] [address] 300, [place], [place], [id number], tel:[phone] [facility] Nail dystrophyOnyc hogryphosisOt her specified peripheral vascular diseases 3 Wilber Reilly. [address] [facility] [address], [place], [place], [id number], [place]. tel:[phone] Referring Provider: Alecia Franks. [facility], [address] [place] [address] 300, [place], [place], [id number], tel:[phone] [facility] Presbyopia 3 Augusta Locke. [address] [facility] [address], [place], [address], [place]. [facility], [address] [place] [address] 300, [place], [place], [id number], [place] tel:[phone] [facility] Cataract (chief complaint) Age-related nuclear cataract, bilateral 3 Augusta Locke. [address] [facility] [address], [place], [address], [place]. Referring Provider: Alecia Franks. [address], [place], [place], [id number], [place] tel:[phone] [facility] Other specified peripheral vascular diseasesNail dystrophyOnyc hogryphosis 3 Wilbre Reilly. [address] [facility] [address], [place], [place], [id number], [place]. tel:[phone] Referring Provider: Alecia Franks. NURSING FAC CARE SUBSEQ [facility], [address] [place] [address] 300, [place], [place], [id number], tel:[phone] [facility] Nail dystrophyOthe r specified peripheral vascular diseasesTinea unguiumCorns and callositiesAb rasion, left foot, subsequent encounter 2 Wilber Reilly. [address] [facility] [address], [place], [place], [id number], [place]. tel:[phone] Referring Provider: Alecia Franks. NURSING FAC CARE SUBSEQ [facility], [address] [place], [place] [address], [place], [place], [id number], tel:[phone] [facility] Nail dystrophyOthe r specified peripheral vascular diseasesAbras ion, left foot, initial encounter 2 Aleisha Vázquez. [address] [facility] [address], [place], [place], [address], [place]. tel:[phone] Referring Provider: Martin Lindquist . [facility], [address] [place] [address] 300, [place], [place], [id number], [place] tel:[phone] [facility] Other specified peripheral vascular diseasesTinea unguium 2 Sumanth Shiag. , [place]. Referring Provider: Alecia Franks. [facility], [address] [place], [place] [address], [place], [place], [id number], [place] tel:[phone] [facility] Presbyopia 2 Augusta Locke. [address] [facility] [address], [place], [address], [place]. [facility], [address] [place], [place] [address], [place], [place], [id number], [place] tel:[phone] [facility] Diabetic eye exam (chief complaint) Combined forms of age-related cataract, bilateral 2 Marjgrupo HunterCornelia. [address] [facility] [address], [place], [address], [place]. Referring Provider: Alecia Franks. [facility], [address] [facility], [place], [place], [address], [place] tel:[phone] [facility] Other specified peripheral vascular diseasesTinea unguium 2 Julio Collin. , [place]. Referring Provider: Brandon Graff. [facility], [address] [place], [place] [address], [place], [place], [id number], [place] tel:[phone] [facility] Other specified peripheral vascular diseasesTinea unguium 1 Julio Collin. , [place]. Referring Provider: Alecia Franks. [address] [place] [address], [address] [place], [place] [address], [place], [place], [id number], [place] tel:[phone] [facility] Other specified peripheral vascular diseasesTinea unguium 1 Julio Collin. , [place]. Referring Provider: Silvestre Mccabe. [address] [place] [address], [address] [facility] [address], [place], [place], [id number], [place] tel:[phone] João Ashbyilion No Information 1 Julio Collin. , [place]. [address] [place] [address], [address] [place], [place] [address], [place], [place], [id number], [place] tel:[phone] [facility] Other specified peripheral vascular diseasesTinea unguium 1 Julio Collin. , [place]. Referring Provider: Kris Wells. [address] [place] [address], [address] [facility] [address], [place], [place], [address], [place] tel:[phone] [facility] Tinea unguiumOther specified peripheral vascular diseases 1 Julio Collin. , [place]. Referring Provider: Alecia Franks. [facility], [address] [facility] [address], [place], [place], [address], [place] tel:[phone] ADAIR Gibbs Re[place] No Information Mar-0 1 [place], [place]. [facility], [address], [place], [place], [address], [place] tel:[phone] ADAIR Gibbs [place] Cataract (chief complaint) Age-related nuclear cataract, bilateral Jun- 0 Anna Ornelas. [address] [facility] [place], [address], [place]. tel:[phone] Referring Provider: Alecia Franks. [facility], [address] [facility] [address], [place], [place], [id number], [place] tel:[phone] ADAIR Murphy Tinea unguiumPain in left toe(s)Pain in right toe(s) 0 Oziel Celestin. [address], [place], [place], [address], [place]. tel:[phone] Referring Provider: Daisy Pandya. [facility], [address] [facility] [address], [place], [place], [address], [place] tel:[phone] ADAIR Murphy Tinea unguiumPain in right toe(s)Pain in left toe(s) 0- [address] [facility] , [place], [place]. tel:[phone] Referring Provider: Alecia Franks. [facility], [address], [place], [place], [address], [place] tel:[phone] [facility] Tinea unguiumPain in right toe(s)Pain in left toe(s) 9 Juliojuanita Thornton. [place], [place], [place]. tel:[phone] Referring Provider: Alecia Franks. [facility], [address] [facility] [address], [place], [place], [address], tel:[phone] [facility] Tinea unguiumPain in right toe(s)Pain in left toe(s) 9 [facility]. [place], [place], [place]. tel:[phone] Referring Provider: Alecia Franks. [facility], [address] [facility] [address], [place], [place], [address], [place] tel:[phone] [facility] medical eye problem (chief complaint) Age-related nuclear cataract, bilateral Mar-0 9 Anna Ornelas. [address] [facility] [place], [address], [place]. tel:[phone] Referring Provider: Alceia Franks. [facility], [address] [facility] [address], [place], [place], [id number], tel:[phone] [facility] Tinea unguiumPain in right toe(s)Pain in left toe(s) 9 [place], [place], [place]. tel:[phone] [facility], [address] [facility] [address], [place], [place], [address], [place] tel:[phone] [facility] Tinea unguiumPain in left toe(s)Pain in right toe(s) 8 Fran French. [address] [facility] [address], [place], [address], [place]. [facility], [address] [facility] [address], [place], [place], [id number], [place] tel:[phone] [facility] decreased vision (chief complaint) Age-related nuclear cataract, bilateral Sep- 8 Anna Ornelas. [address] [facility] [place], [address], [place]. tel:[phone] Referring Provider: Alecia Franks. [facility], [address] [facility] [address], [place], [place], [id number], [place] tel:[phone] [facility] No Information May- 8 Golden Alston. . [address] [place] [address], [address] [facility] 300, [place], [place], [id number], tel:[phone] [facility] No Information May-0 8 Golden Alston. . Family History Family Member Type Diagnosis Age At Onset No Information Payers Payer name Insurance type Covered republican ID Aime hollis(s) [employer] Medicare CI [id number] [employer] [facility] [id number] Social History Type Description Quantity Date Captured [...]
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
--- OUTSIDE RECORDS SUMMARY | 2025-04-25 07:15 | XMS_ITS | Clinical Summary ---
Author Organization Healthcare Address [address] [place] [address] Care Team Providers Care White Mixing Operator Name Role Phone Pcp, No Primary Care [...] day with meals. 3 Active nystatin (Mycostatin) 573186 UNIT/GM powder Apply 1 Application topically 2 (two) times a day. 3 Active potassium chloride CR (Klor-Con) 10 MEQ ER tablet Take 1 tablet (10 mEq) by mouth 1 (one) time each day. 3 Active sertraline (Zoloft) 100 MG tablet Take 1 tablet (100 mg) by mouth 1 (one) time each day. 4 Active Lancets (OneTouch Delica Plus [id number]) misc 3 Active OneTouch Verio test strip 3 Active ergocalciferol 1.25 MG (07042 UT) capsule Take 1 capsule (50,000 Units) [...] - Td or Tdap) 08/29/2020 08/29/2010, 08/03/2008 [id number] Vaccine (5 - season) 2024 07/22/2023, 08/02/2022, 11/15/2020, Additional history exists [facility]-RSV Vaccine: 60+ Years or (1 - 1-dose 75+ series) 2024 [facility]-Influenza Vaccine (#1) 05/23/202507/22, 08/02/2022, 07/06/2020, Additional history exists HPV Vaccines [...] to complete this topic Insurance [employer] Care Teams White Mixing Operator Relationship Specialty Start Date End Date Pcp, [facility] [address] [place] [address] PCP - General Family Medicine 11/27/23
[2025-04-25 07:28] LABS: Hematocrit 35.0 % (37.0-47.0); Hemoglobin 11.2 g/dL (12.2-16.2); Immature Granulocytes % 0.2 %; Mean Corpuscular HGB Conc 32.0 g/dL (31.8-35.4); Mean Corpuscular Hemoglobin 29.3 pg (27.0-31.2); Mean Corpuscular Volume 91.6 fl (81-99); Nucleated Red Blood Cells % 0 %; Platelet Count 156 K/mm3 (142-424); Red Blood Count 3.82 M/mm3 (4.20-5.40); Red Cell Distribution Width-SD 45.9 fL; White Blood Count 4.9 K/mm3 (4.8-10.8)
[2025-04-25 07:49] LABS: Chloride 102 mmol/L (98-107)
[2025-04-25 07:50] LABS: Albumin Level 3.5 g/dl (3.5-5.0); Potassium 4.7 mmoL/L (3.5-5.1); Sodium 136 mmol/L (136-145)
[2025-04-25 07:52] LABS: Anion Gap 9.7 mEq/L (5-15); Blood Urea Nitrogen 20 mg/dl (7-17); Carbon Dioxide 29 mmol/L (22.0-30.0); Creatinine,Serum 0.90 mg/dl (0.52-1.04); Estimated Glomerular Filt Rate 61 ml/min (>60); GFR (African American) 74 ML/MIN (>60)
[2025-04-25 07:53] LABS: Alanine Aminotransferase 18 U/L (12-78); Albumin/Globulin Ratio 1.3 (1.1-1.8); Alkaline Phosphatase 52 U/L (38-126); Aspartate Amino Transferase 25 U/L (14-36); Calcium 9.3 mg/dl (8.4-10.2); Cholesterol 202 mg/dl (140-200); Globulin 2.7 g/dL (1.3-3.2); Glucose 110 mg/dl (74-100); HDL Cholesterol 49 mg/dl (40-60); Total Protein,Serum 6.2 g/dl (6.3-8.2); Triglycerides 140 mg/dl (30-150)
[2025-04-25 08:06] LABS: Bilirubin,Total 0.1 mg/dl (0.2-1.3)
[2025-04-25 08:11] LABS: Hemoglobin A1C 5.4 % (4.0-6.0)
--- OUTSIDE RECORDS SUMMARY | 2025-04-25 08:14 | XMS_ITS | CCD ---
Author Organization Unknown Care Team Providers Care Med Dir Name Role Phone Unavailable Primary Care Provider Unavailabl e Unavailable Chronic Care Management Unavaila ble Summary Purpose DataExchange Insurance Providers Payer name Policy type / Coverage type Covered republican ID Effective Begin Date Effective End Date MEDICARE [place] [id number] Unknown Unknown Family History Family History data not found Medication Administered No Medication Administered data Reason For Visit No Reason For Visit data Medical Equipment No Medical Equipment data Advance Directives No Advance Directive data
--- OUTSIDE RECORDS SUMMARY | 2025-04-25 08:15 | XMS_ITS | CCD ---
Author Organization Unknown Care Team Providers Care Process Control Manager Name Role Phone Unavailable Primary Care Provider Unavailabl e Unavailable Chronic Care Management Unavaila ble Summary Purpose DataExchange Insurance Providers Payer name Policy type / Coverage type Covered libertarian ID Effective Begin Date Effective End Date MEDICARE [place] [id number] Unknown Unknown Family History Family History data not found Medication Administered No Medication Administered data Reason For Visit No Reason For Visit data Medical Equipment No Medical Equipment data Advance Directives No Advance Directive data
== END 2025-04-25 23:59 | disposition home or self-care (01) ==
PROVIDERS: PCP Family Medicine; Visit Provider Family Medicine
DX: E11.9 Type 2 diabetes mellitus without complications (principal)
CPT/HCPCS: 36415; 80053; 80061; 83036; 85025

== ENCOUNTER 2025-06-16 09:23 | Outpatient (CLI) | payer MEDICARE, MEDICAID, SELFPAY ==
--- OUTSIDE RECORDS SUMMARY | 2023-03-12 11:00 | XMS_ITS | Continuity of Care Document ---
Author Organization [address] [place] [address] Address [address] [facility] [address] [place] [address] Phone Care Team Providers Care Braille Typist Name Role Phone Tommie Merino DPM Unavailable Unavailable Allergies, Adverse Reactions, Alerts Substance Reaction Status Criticality Penicillins Active No Information Medications Medication Instructions Dosage Effective Dates (start - stop) Status Comments paroxetine 20 mg tablet - Ac tive trazodone 50 mg tablet - Act clair ondansetron HCl 4 mg tablet - Active docusate sodium 100 mg capsule - Active loratadine 10 mg tablet - Ac tive aspirin 81 mg chewable tablet - Active Procedures Procedure Date DEBRIDE NAIL 1-5 TRIM NAIL(S) Warranty Replacement #1 EYE EXAM & TREATMENT DEBRIDE NAIL 1- TRIM NAIL(S) DEBRIDE NAIL 1- TRIM NAIL(S) NURSING FAC CARE SUBSEQ TRIM NAIL(S) NURSING FAC CARE SUBSEQ DEBRIDE NAIL 6 OR MORE FRAMES PURCHASES SPHERE BIFOCAL PLANO TO PLUS OR MINUS 4. 00D PER LENS EYE EXAM & TREATMENT DEBRIDE NAIL 6 OR MORE DEBRIDE NAIL 6 OR MORE DEBRIDE NAIL 6 OR MORE DEBRIDE NAIL 6 OR MORE DEBRIDE NAIL 6 OR MORE EYE EXAM & TREATMENT DEBRIDE NAIL 6 OR MORE DEBRIDEMENT OF NAIL(S) BY ANY METHOD(S); OR MORE DEBRIDEMENT OF NAIL(S) BY ANY METHOD(S); 6 OR MORE DEBRIDEMENT OF NAIL(S) BY ANY METHOD(S); 6 OR MORE EYE EXAM & TREATMENT DEBRIDEMENT OF NAIL(S) BY ANY METHOD(S); 6 OR MORE DEBRIDEMENT OF NAIL(S) BY ANY METHOD(S); 6 OR MORE EYE EXAM & TREATMENT Advance Directives Directive Yes / No Effective Date File Name No Information Encounters Encounter Description Practice Location Reason(s) For Visit Diagnoses Date Provider Providers Copied on Encounter [facility], [id number] [place] [address] [address], [place], [place], [id number], tel:[phone] [facility] Nail dystrophyOnyc hogryphosisOt her specified peripheral vascular diseases 3 Wilber Reilly. [address] [facility], [address], [place], [place], [id number], [place]. tel:[phone] Referring Provider: Alecia Franks. [facility], [address] [place] [address] 300, [place], [place], [id number], tel:[phone] [facility] Presbyopia 3 Augusta Locke. [address] [facility], [address], [place], [address], [place]. [facility], [address] [place] [address] [address], [place], [place], [id number], [place] tel:[phone] [facility] Cataract (chief complaint) Age-related nuclear cataract, bilateral 3 Augusta Locke. [address] [facility], [address], [place], [address], [place]. Referring Provider: Alecia Franks. [address], [place], [place], [id number], [place] tel:[phone] [facility] Other specified peripheral vascular diseasesNail dystrophyOnyc hogryphosis 3 Wilber Reilly. [address] [facility], [address], [place], [place], [id number], [place]. tel:[phone] Referring Provider: Alecia Franks. NURSING FAC CARE SUBSEQ [facility], [address] [place] [address], [place], [place], [id number], tel:[phone] [facility] Nail dystrophyOthe r specified peripheral vascular diseasesTinea unguiumCorns and callositiesAb rasion, left foot, subsequent encounter 2 Wilber Reilly. [address] [facility], [address], [place], [place], [id number], [place]. tel:[phone] Referring Provider: Alecia Franks. NURSING FAC CARE SUBSEQ [facility], [address] [place], [place] [address], [place], [place], [id number], tel:[phone] [facility] Nail dystrophyOthe r specified peripheral vascular diseasesAbras ion, left foot, initial encounter 2 Aleisha Vázquez. [address] [facility], [address], [place], [place], [id number], [place]. tel:[phone] Referring Provider: Martin Lindquist . [facility], [address] [place] [address] [address], [place], [place], [id number], [place] tel:[phone] [facility] Other specified peripheral vascular diseasesTinea unguium 2 Sumanth Shiag. , [place]. Referring Provider: Alecia Franks. [facility], [address] [place], [place] [address], [place], [place], [id number], [place] tel:[phone] [facility] Presbyopia 2 Augusta Locke. [address] [facility], [address], [place], [address], [place]. [facility], [address] [place], [place] [address], [place], [place], [id number], [place] tel:[phone] [facility] Diabetic eye exam (chief complaint) Combined forms of age-related cataract, bilateral 2 Marjgrupo HunterCornelia. [address] [facility], [address], [place], [address], [place]. Referring Provider: Alecia Franks. [facility], [address] [facility] [address], [place], [place], [id number], [place] tel:[phone] [facility] Other specified peripheral vascular diseasesTinea unguium 2 Julio Collin. , [place]. Referring Provider: Brandon Graff. [facility], [address] [place], [place] [address], [place], [place], [id number], [place] tel:[phone] [facility] Other specified peripheral vascular diseasesTinea unguium 1 Julio Collin. , [place]. Referring Provider: Alecia Franks. [address] [place] [address], [address] [place], [place] [address], [place], [place], [id number], [place] tel:[phone] [facility] Other specified peripheral vascular diseasesTinea unguium 1 Julio Collin. , [place]. Referring Provider: Silvestre Mccabe. [address] [place] [address], [address] [facility] [address], [place], [place], [id number], [place] tel:[phone] [facility] No Information 1 Julio Collin. , [place]. [address] [place] [address], [address] [place], [place] [address], [place], [place], [id number], [place] tel:[phone] [facility] Other specified peripheral vascular diseasesTinea unguium 1 Julio Collin. , [place]. Referring Provider: Kris Wells. [address] [place] [address], [address] [facility] [address], [place], [place], [id number], [place] tel:[phone] [facility] Tinea unguiumOther specified peripheral vascular diseases 1 Julio Collin. , [place]. Referring Provider: Alecia Franks. [facility], [address] [facility] [address], [place], [place], [id number], [place] tel:[phone] ADAIR Gibbs [place] No Information Mar-0 1 [place], [place]. [facility], [address], [place], [place], [id number], [place] tel:[phone] ADAIR Gibbs [place] Cataract (chief complaint) Age-related nuclear cataract, bilateral Jun- 0 Anna Ornelas. [address] [facility], [place], [address], [place]. tel:[phone] Referring Provider: Alecia Franks. [facility], [address] [facility] [address], [place], [place], [id number], [place] tel:[phone] ADAIR Murphy Tinea unguiumPain in left toe(s)Pain in right toe(s) 0 Oz[address] Celestin. [address], [address], [place], [place], [id number], [place]. tel:[phone] Referring Provider: Daisy Pandya. [facility], [address] [facility] [address], [place], [place], [id number], [place] tel:[phone] ADAIR Murphy Tinea unguiumPain in right toe(s)Pain in left toe(s) 0- 0 [facility]io [facility] , [place], [place]. tel:[phone] Referring Provider: Alecia Franks. [facility], [address], [place], [place], [id number], [place] tel:[phone] [facility] Tinea unguiumPain in right toe(s)Pain in left toe(s) 9 Juliojuanita Thornton. [place], [place], [place]. tel:[phone] Referring Provider: Alecia Franks. [facility], [address] [facility] [address], [place], [place], [id number], tel:[phone] [facility] Tinea unguiumPain in right toe(s)Pain in left toe(s) 9 [facility]. [place], [place], [place]. tel:[phone] Referring Provider: Alecia Franks. [facility], [address] [facility] [address], [place], [place], [id number], [place] tel:[phone] [facility] medical eye problem (chief complaint) Age-related nuclear cataract, bilateral Mar-0 9 Anna Ornelas. [address] [facility], [place], [address], [place]. tel:[phone] Referring Provider: Alecia Franks. [facility], [address] [facility] [address], [place], [place], [id number], tel:[phone] [facility] Tinea unguiumPain in right toe(s)Pain in left toe(s) 9 [place], [place], [place]. tel:[phone] [facility], [address] [facility] [address], [place], [place], [id number], [place] tel:[phone] [facility] Tinea unguiumPain in left toe(s)Pain in right toe(s) 8 Fran French. [address] [facility], [address], [place], [address], [place]. [facility], [address] [facility] [address], [place], [place], [id number], [place] tel:[phone] [facility] decreased vision (chief complaint) Age-related nuclear cataract, bilateral Sep- 8 Anna Ornelas. [address] [facility], [place], [address], [place]. tel:[phone] Referring Provider: Alecia Franks. [facility], [address] [facility] [address], [place], [place], [id number], [place] tel:[phone] [facility] No Information May- 8 Golden Alston. . [address] [place] [address], [address] [facility] [address], [place], [place], [id number], tel:[phone] [facility] No Information May-0 8 Golden Alston. . Family History Family Member Type Diagnosis Age At Onset No Information Payers Payer name Insurance type Covered alliance party ID Aime hollis(s) [employer] Medicare CI [id number] [employer] [facility] [id number] Social History Type Description Quantity Date Captured Comments Alcohol Use Details Unknown Caffeine Use Details Unknown Tobacco Use Status No Information Smoking Status No Information Sex Female Chief Complaint And Reason For Visit No Information Reason For Referral Reason For Referral No Information Plan Of Treatment Date Type Action Status Patient Education Toenail Fungus: Care In structions completed Patient Education Diabetes Foot Health: C are Instructions completed Patient Education Diabetes Foot Health: C are Instructions completed Patient Education Toenail Fungus: Care In structions completed Patient Education Floaters and Flashes: C are Instructio~ completed Patient Education Toenail Fungus: Care In structions completed Patient Education Toenail Fungus: Care In structions completed Patient Education Toenail Fungus: Care In structions completed Patient Education Toenail Fungus: Care In structions completed Patient Education Dilated Retinal Exam: A bout This Test completed Patient Education Toenail Fungus: Care In structions completed Patient Education Toenail Fungus: Care In structions completed Patient Education Reduced Vision: Care In structions completed History Of Present Illness Encounter Date Complaint History Of Prese nt Illness Cataract The 72 year old patient presents for evaluation of Cataract in the right eye and left eye. It occurs all the time. The onset was progressive. WOrds run together when reading Diabetic eye exam The 71 year ol d female presents for evaluation of Diabetic eye exam in the right eye and left eye. It occurs all the time. The onset was progressive. It affects near vision. The symptom is frequent. The condition is moderate. Cataract The 69 year old female presents for evaluation of Cataract in the right eye and left eye. seem same medical eye problem The 68 year old female presents for evaluation of medical eye problem. cataracts OU decreased vision The 67 year old female presents for evaluation of decreased vision in the right eye and left eye. Cataracts OU. eyes seem same Functional Status Date Functional Assessmen t No Information Instructions Date Instruction Additional Infor mation All dystrophic nails were debrided in length and thickness as needed to prevent pain and other symptoms. Related to Nail dystrophy All of the onychogry photic nails described were debrided in both length and thickness as needed. Related to Onychogryphosis I will follow up in 2-3 months for continued at risk foot care. Related to Other specified peripheral vascular diseases We will schedule an appoinment in 12-15 months for a dilated fundus exam. Related to Age-related nuclear cataract, bilateral Impression/Plan - Ca taracts are moderate and are affecting visual acuity; however, no treatment recommended at this time. We will monitor for progression. Related to Age-related nuclear cataract, bilateral Follow up - We will schedule an appoinment in 12-15 months for a dilated fundus exam. Related to Age-related nuclear cataract, bilateral I will follow up in 2-3 months for continued at risk foot care. Related to Other specified peripheral vascular diseases All dystrophic nails were debrided in length and thickness as needed to prevent pain and other symptoms. Related to Nail dystrophy All of the onychogry photic nails described were debrided in both length and thickness as needed. Related to Onychogryphosis Abrasion resolved L foot, no further monitoring needed at this time Related to Abrasion, left foot, subsequent encounter All of the calluses were debrided/pared to prevent further tissue breakdown and pain. Related to Corns and callosities All of the mycotic n ails described were debrided in both length and thickness as needed. Related to Tinea unguium I will follow up in 2-3 months for continued at risk foot care. Related to Other specified peripheral vascular diseases All dystrophic nails were debrided in length and thickness as needed to prevent pain and other symptoms. Related to Nail dystrophy Lesion is healing we ll without any infection. No further treatment is needed. Related to Abrasion, left foot, initial encounter All dystrophic nails were reduced in length as needed to prevent pain and other symptoms. Related to Nail dystrophy Patient was examined , evaluated and treated with all questions and concerns addressed.All mycotic nails were sharply debrided in length, thickness, and width using a sterile nail nipper and rotary tool. Offending margins were carefully removed.Patient related immediate comfort and relief of pain after procedure.Patient was educated on pedal health and hygiene.Patient instructed on daily pedal checks and to notify staff of any significant changes.Patient advised to continue all medications and therapeutic modalities as instructed.Patient is amenable to all instruction provided today. Will follow-up with patient in 2-3 months or sooner as needed. Related to Tinea unguium We will schedule an appoinment in 12-15 months for a dilated fundus exam. Related to Combined forms of age-related cataract, bilateral Impression/Plan - Ca taracts are moderate and are affecting visual acuity; however, no treatment recommended at this time. We will monitor for progression. Related to Combined forms of age-related cataract, bilateral Follow up - We will schedule an appoinment in 12-15 months for a dilated fundus exam. Related to Combined forms of age-related cataract, bilateral Patient was examined , evaluated and treated with all questions and concerns addressed.All mycotic nails were sharply debrided in length, thickness, and width using a sterile nail nipper and rotary tool. Offending margins were carefully removed.Patient related immediate comfort and relief of pain after procedure.Patient was educated on pedal health and hygiene.Patient instructed on daily pedal checks and to notify staff of any significant changes.Patient advised to continue all medications and therapeutic modalities as instructed.Patient is amenable to all instruction provided today. Will follow-up with patient in 2-3 months or sooner as needed. Related to Tinea unguium Patient was examined , evaluated and treated with all questions and concerns addressed.All mycotic nails were sharply debrided in length, thickness, and width using a sterile nail nipper and rotary tool. Offending margins were carefully removed.Patient related immediate comfort and relief of pain after procedure.Patient was educated on pedal health and hygiene.Patient instructed on daily pedal checks and to notify staff of any significant changes.Patient advised to continue all medications and therapeutic modalities as instructed.Patient is amenable to all instruction provided today. Will follow-up with patient in 2-3 months or sooner as needed. Related to Tinea unguium Patient was examined , evaluated and treated with all questions and concerns addressed.All mycotic nails were sharply debrided in length, thickness, and width using a sterile nail nipper and rotary tool. Offending margins were carefully removed.Patient related immediate comfort and relief of pain after procedure.Patient was educated on pedal health and hygiene.Patient instructed on daily pedal checks and to notify staff of any significant changes.Patient advised to continue all medications and therapeutic modalities as instructed.Patient is amenable to all instruction provided today. Will follow-up with patient in 2-3 months or sooner as needed. Related to Tinea unguium Patient was examined , evaluated and treated with all questions and concerns addressed.All mycotic nails were sharply debrided in length, thickness, and width using a sterile nail nipper and rotary tool. Offending margins were carefully removed.Patient related immediate comfort and relief of pain after procedure.Patient was educated on pedal health and hygiene.Patient instructed on daily pedal checks and to notify staff of any significant changes.Patient advised to continue all medications and therapeutic modalities as instructed.Patient is amenable to all instruction provided today. Will follow-up with patient in 2-3 months or sooner as needed. Related to Tinea unguium Patient was examined , evaluated and treated with all questions and concerns addressed.All mycotic nails were sharply debrided in length, thickness, and width using a sterile nail nipper and rotary tool. Offending margins were carefully removed.Patient related immediate comfort and relief of pain after procedure.Patient was educated on pedal health and hygiene.Patient instructed on daily pedal checks and to notify staff of any significant changes.Patient advised to continue all medications and therapeutic modalities as instructed.Patient is amenable to all instruction provided today. Will follow-up with patient in 2-3 months or sooner as needed. Related to Tinea unguium Impression/Plan - Ca taracts are moderate and are affecting visual acuity; however, no treatment recommended at this time. We will monitor for progression. Related to Age-related nuclear cataract, bilateral Toe nails discomfort relieved after debridement. Related to Pain in right toe(s) All of the nails ramiro cribed were debrided in both length and thickness as needed. The nails were debrided using a dremel and nail nipper. I will follow up in 2-3 months for continued at risk foot care. Related to Tinea unguium The nails were debri ded using a nail nipper only. I will follow up in 2-3 months for continued at risk foot care. Related to Tinea unguium The nails were debri ded using a nail nipper only. I will follow up in 2-3 months for continued at risk foot care. Related to Tinea unguium The nails were debri ded using a nail nipper only. I will follow up in 2-3 months for continued at risk foot care. Related to Tinea unguium Follow up - We will schedule an appoinment in 12-15 months for a dilated fundus exam. Impression/Plan - Ca taracts are mild; we will monitor for progression. Related to Age-related nuclear cataract, bilateral The nails were debri ded using a nail nipper only. I will follow up in 2-3 months for continued at risk foot care. Related to Tinea unguium Toenails 1-5 b/l wer e debrided in length and thickness without incident. Follow up in 2-3 months. Related to Tinea unguium Follow up - We will schedule an appoinment in 12-15 months for a dilated fundus exam. Impression/Plan - Ca taracts are mild; we will monitor for progression. Related to Age-related nuclear cataract, bilateral Assessments Type Assessment Date assessment Nail dystrophy assessment Onychogryphosis assessment Other specified peripheral vascu lar diseases Patient Care Teams Name Effective Dates (start - stop) Status Members No Information
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
--- OUTSIDE RECORDS SUMMARY | 2025-06-16 09:29 | XMS_ITS | Clinical Summary ---
Author Organization Healthcare Address [address] [place] [address] Care Team Providers Care Plastic Extruding Machine Operator Name Role Phone Pcp, No Primary [...] day with meals. 3 Active nystatin (Mycostatin) 613334 UNIT/GM powder Apply 1 Application topically 2 (two) times a day. 3 Active potassium chloride CR (Klor-Con) 10 MEQ ER tablet Take 1 tablet (10 mEq) by mouth 1 (one) time each day. 3 Active sertraline (Zoloft) 100 MG tablet Take 1 tablet (100 mg) by mouth 1 (one) time each day. 4 Active Lancets (OneTouch Delica Plus [id number]) misc 3 Active OneTouch Verio test strip 3 Active ergocalciferol 1.25 MG (44106 UT) capsule Take 1 capsule (50,000 Units) [...] Screening 1949 [facility] Annual Wellness (AWV) 1949 [facility]-/Child/Adol SDOH Screenings 1949 [facility]- SDOH Screenings 1967 [facility]-Adult SDOH Screenings 1967 CT Colonography 1994 Colonoscopy 1994 FIT-DNA 1994 FIT 1994 FOBT 1994 Sigmoidoscopy 1994 [facility]-Colorectal Cancer Screening 1994 [facility]-Zoster Vaccines (1 of 2) 1999 [facility]-Pneumococcal Vaccine: 50+ Years (2 of 2 - PCV) 11/17/2016 11/17/2015 [facility]-DTaP,Tdap,and Td Vaccines (3 - Td or Tdap) 08/29/2020 08/29/2010, 08/03/2008 [facility]-RSV Vaccine: 60+ Years or (1 - 1-dose 75+ series) 2024 [id number]-31 Vaccine ( season) 2025 07/22/2023, 08/02/2022, 11/15/2020, Additional history exists [facility]-Influenza Vaccine (#1) 05/23/202507/22, 08/02/2022, 07/06/2020, Additional [...] this topic Insurance [employer] Care Teams Plastic Extruding Machine Operator Relationship Specialty Start Date End Date Pcp, [facility] [address] [place] [address] PCP - General Family Medicine 11/27/23
--- NOTE | 2025-06-16 09:30 | XR_ITS ---
FINAL REPORT TECHNIQUE: Bone densitometry calculations of the lumbar spine and bilateral hips were obtained. CLINICAL HISTORY: Postmenopausal bone loss COMPARISON: None FINDINGS: Using L1-4, the bone mineral density of the spine is 0.846 g/cm2, corresponding to T-score of -1.8 and a Z score of 0.6. This is within the range of osteopenia. Using the left hip, the bone mineral density of the femoral neck is 0.561 g/cm2, corresponding to a T-score of -2.6 and a Z-score of -0.5. This is within the range of osteoporosis. Using the right hip, the bone mineral density of the femoral neck is 0.619 g/cm?, corresponding to a T-score of -2.1 and a Z-score of 0.0. This is within the range of osteopenia. NOTE: T-score: Standard deviation compared with peak bone mass of young adult mean. *Following the recommendations of the International Society of Bone densitometry, classification of hip BMD is based on the lower of two T-scores; total hip or femoral neck. IMPRESSION: 1. Bone mineral density of the lumbar spine and right hip within the range of osteopenia. 2. Bone mineral density of the left femoral neck within the range of osteoporosis. Reviewed, Interpreted and Dictated by Brielle Duran MD Transcribed by Lyndsey Morse Authenticated and [facility]
--- NOTE | 2025-06-16 10:00 | MM_ITS ---
PROCEDURE INFORMATION: Exam: MG Bilateral Screening 3D Mammography Exam date and time: 06/16/2025 9:39 AM Age: 74 years old Clinical indication: Screening examination TECHNIQUE: Imaging protocol: Bilateral Screening tomosynthesis and 2D mammography including computer-aided detection (CAD) when performed. COMPARISON: MG MM DIG SCREENING MAMM BI W/CAD 05/14/2024 2:31 PM FINDINGS: MAMMOGRAPHY: Breast composition: There are scattered areas of fibroglandular density. Mass: None. Architectural distortion: None. Calcifications: No suspicious calcifications. Asymmetric density: None. Skin thickening: None. Axillary adenopathy: None. IMPRESSION: No mammographic evidence of malignancy. Annual screening is recommended unless otherwise clinically indicated. ASSESSMENT: BI-RADS Category 1: Negative.
--- OUTSIDE RECORDS SUMMARY | 2025-06-16 10:29 | XMS_ITS | CCD ---
Author Organization Unknown Care Team Providers Care Parachute Taper Name Role Phone Unavailable Primary Care Provider Unavailabl e Unavailable Chronic Care Management Unavaila ble Summary Purpose DataExchange Insurance Providers Payer name Policy type / Coverage type Covered libertarian ID Effective Begin Date Effective End Date MEDICARE [employer] [id number] Unknown Unknown Family History Family History data not found Medication Administered No Medication Administered data Reason For Visit No Reason For Visit data Medical Equipment No Medical Equipment data Advance Directives No Advance Directive data
== END 2025-06-16 23:59 | disposition home or self-care (01) ==
LOC: RAD 09:24
PROVIDERS: PCP Nurse Practitioner Family; Visit Provider Nurse Practitioner Family
DX: Z12.31 Encounter for screening mammogram for malignant neoplasm of breast (principal); M81.0 Age-related osteoporosis without current pathological fracture; R92.323 Mammographic fibroglandular density, bilateral breasts
CPT/HCPCS: 77063; 77067; 77080